=== PATIENT | male | born 1970 | race African-American/Black ===

== ENCOUNTER → 2024-01-08 | Outpatient (REF) | payer MEDICAID, SELFPAY ==
[2024-01-08 09:15] LABS: Hematocrit 45.1 % (40-54); Hemoglobin 13.7 g/dL (13.0-16.5); Mean Corp Hgb Conc 30.4 g/dL (32-36); Mean Corpuscular Hgb 29.7 pg (27.0-32.0); Mean Corpuscular Volume 97.8 fL (80-94); Mean Platelet Vol. 10.1 fl (6.2-12.0); Platelet Count 253 K/mm3 (150-450); RBC Distribution Width CV 13.5 % (11.6-14.6); RBC Distribution Width SD 48.8 fl (35.1-43.9); Red Blood Count 4.61 M/mm3 (4.6-6.2); White Blood Count 8.5 K/mm3 (4.4-11.0)
[2024-01-08 09:37] LABS: Vitamin D,25 Hydroxy 16.6 ng/mL
[2024-01-08 10:09] LABS: ALB/GLOB Ratio 0.9 RATIO (0.9-2.4); AST(SGOT) 38 U/L (15-37); Alanine Aminotransfer ALT/SGPT 151 U/L (16-61); Albumin, Serum 3.2 g/dL (3.2-5.0); Alkaline Phosphatase 113 U/L (45-117); Anion Gap 3 (5-15); BUN 13 mg/dL (7-18); BUN/Creat Ratio 21.8 RATIO (10-20); Chloride 104 mmol/L (98-107); Cholesterol 188 mg/dL (200); EST Glomerular Filtration Rate 151 mL/min (>60); Est Glom Filt Rate - Afr Amer 183 mL/min (>60); Globulin 3.4 g/dL (2.2-4.2); Glucose 89 mg/dL (74-106); High Density Lipoprotein 79 mg/dL; Potassium 4.3 mmol/L (3.5-5.1); Protein, Total 6.6 g/dL (6.4-8.2); Sodium Level 138 mmol/L (136-145); Thyroid Stim Hormone (TSH) 1.21 uIU/mL (0.358-3.74); Triglycerides 32 mg/dL; Uric Acid 3.8 mg/dL (3.5-7.2); Very Low Density Lipoprotein 6 mg/dL (5-40)
[2024-01-08 11:06] LABS: Hemoglobin A1c 5.8 % (3.8-5.6)
== END | disposition home or self-care (01) ==
LOC: OLS.ACW100 05:00
PROVIDERS: Visit Provider Family Medicine
DX: J44.1 Chronic obstructive pulmonary disease with (acute) exacerbation (principal); E11.9 Type 2 diabetes mellitus without complications; J96.21 Acute and chronic respiratory failure with hypoxia
CPT/HCPCS: 36415; 80053; 80061; 82306; 83036; 83735; 84443; 84550; 85027

== ENCOUNTER → 2024-01-09 | Outpatient (REF) | payer MEDICAID, SELFPAY ==
[2024-01-09 08:45] LABS: Hematocrit 44.3 % (40-54); Hemoglobin 13.4 g/dL (13.0-16.5); Mean Corp Hgb Conc 30.2 g/dL (32-36); Mean Corpuscular Hgb 29.1 pg (27.0-32.0); Mean Corpuscular Volume 96.3 fL (80-94); Mean Platelet Vol. 10.1 fl (6.2-12.0); Platelet Count 256 K/mm3 (150-450); RBC Distribution Width CV 13.5 % (11.6-14.6); RBC Distribution Width SD 48.1 fl (35.1-43.9); White Blood Count 8.1 K/mm3 (4.4-11.0)
[2024-01-09 10:34] LABS: AST(SGOT) 37 U/L (15-37); Alanine Aminotransfer ALT/SGPT 135 U/L (16-61); Albumin, Serum 3.2 g/dL (3.2-5.0); Alkaline Phosphatase 95 U/L (45-117); Anion Gap 2 (5-15); BUN 15 mg/dL (7-18); BUN/Creat Ratio 23.5 RATIO (10-20); Chloride 103 mmol/L (98-107); Cholesterol 186 mg/dL (200); Creatinine, Serum 0.64 mg/dL (0.70-1.30); EST Glomerular Filtration Rate 140 mL/min (>60); Est Glom Filt Rate - Afr Amer 169 mL/min (>60); Globulin 3.3 g/dL (2.2-4.2); Glucose 89 mg/dL (74-106); High Density Lipoprotein 76 mg/dL; Potassium 4.5 mmol/L (3.5-5.1); Protein, Total 6.5 g/dL (6.4-8.2); Sodium Level 139 mmol/L (136-145); Thyroid Stim Hormone (TSH) 1.07 uIU/mL (0.358-3.74); Triglycerides 41 mg/dL; Uric Acid 4.2 mg/dL (3.5-7.2); Very Low Density Lipoprotein 8 mg/dL (5-40)
== END | disposition home or self-care (01) ==
LOC: OLS.ACW100 06:55
PROVIDERS: Visit Provider Family Medicine
DX: E11.9 Type 2 diabetes mellitus without complications (principal); J44.1 Chronic obstructive pulmonary disease with (acute) exacerbation; J18.9 Pneumonia, unspecified organism
CPT/HCPCS: 36415; 80053; 80061; 82306; 83036; 83735; 84443; 84550; 85027

== ENCOUNTER → 2024-02-08 | Outpatient (REF) | payer MEDICAID, SELFPAY ==
[2024-02-08 08:49] LABS: Erythrocyte Sedimentation Rate 5 mm/hr (0-20)
[2024-02-08 08:51] LABS: Hematocrit 39.4 % (40-54); Hemoglobin 12.9 g/dL (13.0-16.5); Mean Corp Hgb Conc 32.7 g/dL (32-36); Mean Corpuscular Hgb 29.2 pg (27.0-32.0); Mean Corpuscular Volume 89.1 fL (80-94); Mean Platelet Vol. 9.8 fl (6.2-12.0); Platelet Count 227 K/mm3 (150-450); RBC Distribution Width CV 12.7 % (11.6-14.6); RBC Distribution Width SD 41.6 fl (35.1-43.9); Red Blood Count 4.42 M/mm3 (4.6-6.2); White Blood Count 5.8 K/mm3 (4.4-11.0)
[2024-02-08 09:02] LABS: ALB/GLOB Ratio 1.1 RATIO (0.9-2.4); AST(SGOT) 32 U/L (15-37); Alanine Aminotransfer ALT/SGPT 59 U/L (16-61); Albumin, Serum 3.2 g/dL (3.2-5.0); Alkaline Phosphatase 74 U/L (45-117); Anion Gap 4 (5-15); BUN 9 mg/dL (7-18); BUN/Creat Ratio 12.1 RATIO (10-20); CRP < 2.90 mg/L (0.0-3.0); Calcium,Total 8.8 mg/dL (8.5-10.1); Chloride 107 mmol/L (98-107); Cholesterol 171 mg/dL (200); Creatinine, Serum 0.74 mg/dL (0.70-1.30); EST Glomerular Filtration Rate 118 mL/min (>60); Est Glom Filt Rate - Afr Amer 142 mL/min (>60); Globulin 2.9 g/dL (2.2-4.2); Glucose 78 mg/dL (74-106); High Density Lipoprotein 60 mg/dL; Potassium 3.8 mmol/L (3.5-5.1); Protein, Total 6.1 g/dL (6.4-8.2); Sodium Level 138 mmol/L (136-145); Triglycerides 70 mg/dL; Very Low Density Lipoprotein 14 mg/dL (5-40)
[2024-02-08 09:38] LABS: Hemoglobin A1c 5.8 % (3.8-5.6)
== END | disposition home or self-care (01) ==
LOC: OLS.ACW300 05:00
PROVIDERS: Visit Provider Family Medicine
DX: J44.1 Chronic obstructive pulmonary disease with (acute) exacerbation (principal); R26.81 Unsteadiness on feet; R53.81 Other malaise
CPT/HCPCS: 36415; 80053; 80061; 83036; 85027; 85652; 86140

== ENCOUNTER → 2024-04-11 | Outpatient (REF) | payer MEDICAID, SELFPAY ==
[2024-04-11 09:19] LABS: AST(SGOT) 17 U/L (15-37); Alanine Aminotransfer ALT/SGPT 18 U/L (16-61); Albumin, Serum 3.5 g/dL (3.2-5.0); Alkaline Phosphatase 77 U/L (45-117); Anion Gap 4 (5-15); BUN 13 mg/dL (7-18); BUN/Creat Ratio 17.2 RATIO (10-20); Bilirubin, Direct 0.09 mg/dL (0.00-0.30); Calcium,Total 8.8 mg/dL (8.5-10.1); Chloride 103 mmol/L (98-107); Cholesterol 153 mg/dL (200); Creatinine, Serum 0.75 mg/dL (0.70-1.30); EST Glomerular Filtration Rate 115 mL/min (>60); Est Glom Filt Rate - Afr Amer 139 mL/min (>60); Glucose 91 mg/dL (74-106); High Density Lipoprotein 57 mg/dL; PSA,Total - Annual Screen 0.77 ng/mL (0.00-4.00); Potassium 4.1 mmol/L (3.5-5.1); Protein, Total 6.5 g/dL (6.4-8.2); Sodium Level 137 mmol/L (136-145); Thyroid Stim Hormone (TSH) 1.48 uIU/mL (0.358-3.74); Triglycerides 49 mg/dL; Very Low Density Lipoprotein 10 mg/dL (5-40)
== END | disposition home or self-care (01) ==
LOC: OLS.ACW300 05:00
PROVIDERS: Visit Provider Family Medicine
DX: J44.1 Chronic obstructive pulmonary disease with (acute) exacerbation (principal); R26.81 Unsteadiness on feet; R53.83 Other fatigue
CPT/HCPCS: 36415; 80048; 80061; 80076; 84153; 84403; 84443; G0103

== ENCOUNTER → 2024-09-16 | Outpatient (REF) | payer MEDICAID, SELFPAY | END | disposition home or self-care (01) | LOC: OLS.ACW300 07:00 | PROVIDERS: Visit Provider Family Medicine | DX: J44.1 Chronic obstructive pulmonary disease with (acute) exacerbation (principal); R26.81 Unsteadiness on feet; R53.81 Other malaise | CPT/HCPCS: 87502; 87635 ==

== ENCOUNTER → 2024-10-03 | Outpatient (REF) | payer MEDICAID, SELFPAY ==
[2024-10-03 08:59] LABS: Hematocrit 40.1 % (40-54); Hemoglobin 13.1 g/dL (13.0-16.5); Mean Corp Hgb Conc 32.7 g/dL (32-36); Mean Corpuscular Hgb 29.8 pg (27.0-32.0); Mean Corpuscular Volume 91.1 fL (80-94); Mean Platelet Vol. 9.3 fl (6.2-12.0); Platelet Count 557 K/mm3 (150-450); RBC Distribution Width SD 40.2 fl (35.1-43.9); White Blood Count 7.4 K/mm3 (4.4-11.0)
[2024-10-03 09:13] LABS: Vitamin D,25 Hydroxy 60.1 ng/mL
[2024-10-03 09:22] LABS: ALB/GLOB Ratio 0.9 RATIO (0.9-2.4); AST(SGOT) 23 U/L (15-37); Alanine Aminotransfer ALT/SGPT 39 U/L (16-61); Albumin, Serum 3.4 g/dL (3.2-5.0); Alkaline Phosphatase 145 U/L (45-117); Anion Gap 3 (5-15); BUN 18 mg/dL (7-18); BUN/Creat Ratio 25.1 RATIO (10-20); Chloride 104 mmol/L (98-107); Cholesterol 158 mg/dL (200); Creatinine, Serum 0.72 mg/dL (0.70-1.30); EST Glomerular Filtration Rate 122 mL/min (>60); Est Glom Filt Rate - Afr Amer 148 mL/min (>60); Globulin 3.9 g/dL (2.2-4.2); Glucose 89 mg/dL (74-106); High Density Lipoprotein 46 mg/dL; Potassium 4.3 mmol/L (3.5-5.1); Protein, Total 7.3 g/dL (6.4-8.2); Sodium Level 138 mmol/L (136-145); Triglycerides 53 mg/dL; Very Low Density Lipoprotein 11 mg/dL (5-40)
[2024-10-03 10:39] LABS: Hemoglobin A1c 5.6 % (3.8-5.6)
== END | disposition home or self-care (01) ==
LOC: OLS.ACW300 05:00
PROVIDERS: Visit Provider Family Medicine
DX: J44.1 Chronic obstructive pulmonary disease with (acute) exacerbation (principal); J43.9 Emphysema, unspecified; R26.81 Unsteadiness on feet; R53.83 Other fatigue; R53.81 Other malaise
CPT/HCPCS: 36415; 80053; 80061; 82306; 83036; 83735; 84443; 85027

== ENCOUNTER → 2025-01-31 | Outpatient (REF) | payer MEDICAID, SELFPAY ==
[2025-01-31 07:29] LABS: Hematocrit 39.8 % (40-54); Hemoglobin 13.1 g/dL (13.0-16.5); Mean Corp Hgb Conc 32.9 g/dL (32-36); Mean Corpuscular Hgb 30.4 pg (27.0-32.0); Mean Corpuscular Volume 92.3 fL (80-94); Mean Platelet Vol. 9.6 fl (6.2-12.0); Platelet Count 232 K/mm3 (150-450); RBC Distribution Width CV 12.7 % (11.6-14.6); RBC Distribution Width SD 43.6 fl (35.1-43.9); Red Blood Count 4.31 M/mm3 (4.6-6.2); White Blood Count 5.7 K/mm3 (4.4-11.0)
[2025-01-31 08:02] LABS: ALB/GLOB Ratio 1.6 RATIO (0.9-2.4); AST(SGOT) 25 U/L (<=37); Alanine Aminotransfer ALT/SGPT 34 U/L (<=46); Alkaline Phosphatase 100 U/L (40-129); Anion Gap 8 (5-15); BUN 17 mg/dL (4-19); BUN/Creat Ratio 22.1 RATIO (10-20); Calcium,Total 8.9 mg/dL (7.6-11.0); Chloride 103 mmol/L (98-108); Creatinine, Serum 0.78 mg/dL (0.70-1.20); EST Glomerular Filtration Rate 107 (>60); Globulin 2.4 g/dL (2.2-4.2); Glucose 86 mg/dL (70-99); Potassium 3.9 mmol/L (3.3-5.1); Protein, Total 6.4 g/dL (5.9-8.4); Sodium Level 139 mmol/L (133-145); Total Bilirubin 0.22 mg/dL (0.00-1.30)
== END | disposition home or self-care (01) ==
LOC: OLS.ACW200 05:00
PROVIDERS: Visit Provider Family Medicine
DX: J44.9 Chronic obstructive pulmonary disease, unspecified (principal); R53.83 Other fatigue
CPT/HCPCS: 36415; 80053; 85027

== ENCOUNTER → 2025-06-02 05:00 | Outpatient (REF) | payer MEDICAID, SELFPAY ==
[2025-06-02 08:51] LABS: Hematocrit 38.8 % (40-54); Hemoglobin 13.0 g/dL (13.0-16.5); Mean Corp Hgb Conc 33.5 g/dL (32-36); Mean Corpuscular Volume 90.0 fL (80-94); Mean Platelet Vol. 10.4 fl (6.2-12.0); Platelet Count 270 K/mm3 (150-450); RBC Distribution Width CV 11.6 % (11.6-14.6); RBC Distribution Width SD 38.0 fl (35.1-43.9); Red Blood Count 4.31 M/mm3 (4.6-6.2); White Blood Count 6.2 K/mm3 (4.4-11.0)
[2025-06-02 09:25] LABS: AST(SGOT) 29 U/L (<=37); Alanine Aminotransfer ALT/SGPT 14 U/L (<=46); Albumin, Serum 3.6 g/dL (3.5-5.0); Alkaline Phosphatase 109 U/L (40-129); Anion Gap 10 (5-15); BUN 13 mg/dL (4-19); BUN/Creat Ratio 17.1 RATIO (10-20); Calcium,Total 9.1 mg/dL (7.6-11.0); Carbon Dioxide 23.5 mmol/L (21.0-32.0); Chloride 103 mmol/L (98-108); Globulin 2.9 g/dL (2.2-4.2); Glucose 96 mg/dL (70-99); Potassium 4.1 mmol/L (3.3-5.1)
== END ==
LOC: OLS.ACW200 05:00
PROVIDERS: Visit Provider Family Medicine
DX: J44.1 Chronic obstructive pulmonary disease with (acute) exacerbation (principal); J43.9 Emphysema, unspecified; Z74.1 Need for assistance with personal care; R26.81 Unsteadiness on feet; R53.83 Other fatigue; R53.81 Other malaise
CPT/HCPCS: 36415; 80053; 85027

== ENCOUNTER → 2025-07-02 05:00 | Outpatient (REF) | payer MEDICAID, SELFPAY ==
--- OUTSIDE RECORDS SUMMARY | 2025-07-02 03:50 | XMS RPT_ITS | CCD ---
Author Organization [facility] Care Team Providers Care Industrial Photographer Name Role Phone Unavailable Primary Care Provider Unavailmitch Batista MD, Kelsi Primary Care Provider No, PCP Primary Care Unavailable PROVIDER, UNKNOWN Referring Unavailable John Eddy Attending Unavailable KELSI BATISTA Primary Care Unavailable Lisa Cantu Attending Unavailable PROVIDER, UNKNOWN Referring Unavailable KELSI BATISTA Primary Care Unavailable Lisa Cantu Attending Unavailable PROVIDER, UNKNOWN Referring Unavailable KELSI BATISTA Primary Care Unavailable Lisa Cantu Attending Unavailable PROVIDER, UNKNOWN Referring Unavailable Kelsi Batista MD Primary Care Provider Carlyle Garcia MD Primary Care Provider Karolina Chappell MD Unavailable [phone] Karolina Chappell MD Unavailable AGUILAR LOPEZ Attending Unavailable CARLYLE GARCIA Primary Care UnavailNAYE Molina Admitting Unavailable DAVION SUGGS Attending Unavailable JILL SIHN Admitting Unavailable CARLYLE GARCIA Primary Care UnavailPaula Headley MD Primary Care Provider EMELY AMIN Attending Unavailable PAULA RAPHAEL Referring Unavailable KELSI BATISTA Primary Care Unavailable PAULA RAPHAEL Attending Unavailable PAULA RAPHAEL Referring Unavailable PAULA RAPHAEL Primary Care Unavailable EMELY AMIN Attending Unavailable EMELY AMIN Referring Unavailable PAULA RAPHAEL Primary Care Unavailable EMELY AMIN Attending Unavailable EMELY AMIN Referring Unavailable PAULA RAPHAEL Primary Care Unavailable Paula Watson Attending Provider UnavailPaula Hogan Attending Unavailable Paula Watson Attending Unavailable Paula Watson Attending Unavailable Paula Watson Attending Unavailable Medications Current Medications Medication Drug Class(es) Dates Sig (Normalized) Sig (Original) [id number] 200 actuat albuterol 0.09 mg/actuat metered dose inhaler (19 sources) beta2-Adrenergic Agonist Start: 08-14-2024 take 4 puff(s) by inhalation once 4 puff, Inhalation, Once, On Mon08/14/24 at 0745, For 1 dose Start: 11-23-2023 take 2 puff(s) by in halation every four hours as needed for wheezing albuterol HFA (PROVENTIL HFA, VENTOLIN HFA) 90 mcg/actuation inhaler Inhale 2 Puffs as instructed every 4 hours as needed for wheezing/shortness of breath. 6.7 g 0 11/23/2023 Active Start: 09-06-2023 albuterol 108 (90 Base) MCG/ACT inhaler 2 puff Start: 09-06-2023 End: 10-06-2023 take 2 puff(s) by inhalation every four hours as needed for wheezing albuterol 108 (90 Base) MCG/ACT inhaler Inhale 2 puffs every 4 hours as needed for wheezing. 18 g 09/06/2023 Active Start: 07-19-2022 take 2 puff(s) by in halation four times daily as needed for wheezing albuterol sulfate HFA (VENTOLIN HFA) 108 (90 Base) MCG/ACT inhaler Indications: Chronic obstructive pulmonary disease, unspecified COPD type (HCC) Inhale 2 puffs into the lungs 4 times daily as needed for Wheezing 18 g 0 07/19/2022 Active Start: 04-20-2022 End: 04-21-2022 albuterol sulfate HFA (PROVENTIL;VENTOLIN;PROAIR) 108 (90 Base) MCG/ACT inhaler Start: 04-20-2022 albuterol sulf ate HFA (PROVENTIL;VENTOLIN;PROAIR) 108 (90 Base) MCG/ACT inhaler 2 puff Start: 04-20-2022 take 2 puff(s) by in halation four times daily as needed for wheezing albuterol sulfate HFA (VENTOLIN HFA) 108 (90 Base) MCG/ACT inhaler Inhale 2 puffs into the lungs 4 times daily as needed for Wheezing 18 g 0 04/20/2022 Active Comment on above: Inhale 2 Puffs as in structed every 4 hours as needed for wheezing/shortness of breath. albuterol 0.833 mg/ml / ipratropium bromide 0.167 mg/ml inhalation solution (9 sources) Anticholinergic, beta2-Adrenergic Agonist Start: 01-01-2024 ipratropium-albutero l (Duo-Neb) 0.5-2.5 mg/3 mL nebulizer solution Inhale 3 mL in the morning and 3 mL at noon and 3 mL in the evening and 3 mL before bedtime. 01/01/2024 Active Start: 01-01-2024 End: 03-01-2024 take 3 mL by inhalation four times daily ipratropium-albuterol (DUONEB) 0.5 mg-3 mg(2.5 mg base)/3 mL nebu Inhale 3 mL as instructed four times daily. 360 mL 1 01/01/2024 03/01/2024 Active Comment on above: Inhale 3 mL as instr ucted four times daily. 60 actuat budesonide 0.16 mg/actuat / formoterol fumarate 0.0045 mg/actuat metered dose inhaler (3 sources) Corticosteroid, beta2-Adrenergic Agonist Start: take 2 puff(s) by inhalation twice daily budesonide-formoterol (SYMBICORT) 160-4.5 MCG/ACT AERO Inhale 2 puffs into the lungs 2 times daily 10.2 g 2 11/27/2015 Active cholecalciferol 0.05 mg oral tablet (7 sources) Vitamin D Start: take 1 tablet by mouth once daily cholecalciferol (Vitamin D-3) 50 MCG (2000 UT) tablet Take 2,000 Units by mouth daily. 04/03/2024 Active diclofenac sodium 1 mg/ml ophthalmic solution (7 sources) Nonsteroidal Anti-inflammatory Drug Start: diclofenac (Voltaren) 0.1 % ophthalmic solution Administer 1 drop into the left eye. 04/05/2024 Active 60 actuat fluticasone propionate 0.1 mg/actuat / salmeterol 0.05 mg/actuat dry powder inhaler (11 sources) Corticosteroid, beta2-Adrenergic Agonist Start: take 1 puff(s) by inhalation in the morning Fluticasone-Salmetero l 100-50 MCG/ACT aerosol powder Inhale 1 puff in the morning and 1 puff in the evening. 11/23/2023 Active Start: 11-23-2023 take 1 puff(s) by in halation twice daily fluticasone-salmeterol (ADVAIR DISKUS) 100-50 mcg/dose inhaler Inhale 1 Puff as instructed two times a day. 60 Each 0 11/23/2023 Active Start: 11-23-2023 take 1 puff(s) by in halation twice daily fluticasone-salmeterol (ADVAIR DISKUS) 100-50 mcg/dose inhaler Inhale 1 Puff as instructed two times a day. 60 Each 0 11/23/2023 Suspended Comment on above: Inhale 1 Puff as ins tructed two times a day. 30 actuat fluticasone furoate 0.1 mg/actuat / umeclidinium 0.0625 mg/actuat / vilanterol 0.025 mg/actuat dry powder inhaler (1 source) Anticholinergic, Corticosteroid, beta2-Adrenergic Agonist Start: take 1 puff(s) by inhalation once daily fluticasone-umeclidi n-vilant (TRELEGY ELLIPTA) 100-62.5-25 MCG/INH AEPB Indications: Chronic obstructive pulmonary disease, unspecified COPD type (HCC) Inhale 1 puff into the lungs daily 1 each 0 07/19/2022 Active Fluticasone-Umeclidi n-Vilant (TRELEGY ELLIPTA IN) (1 source) Fluticasone-Umec lidi n-Vilant (TRELEGY ELLIPTA IN) Inhale into the lungs 0 Active Fluticasone-Umeclidi n-Vilant (Trelegy Ellipta) 200-62.5-25 MCG/ACT aerosol powder (7 sources) Start: take 1 puff(s) by inhalation once daily Fluticasone-Umeclidi n-Vilant (Trelegy Ellipta) 200-62.5-25 MCG/ACT aerosol powder Inhale 1 puff daily. 1 each 11 04/29/2024 Active iv contrast (will be provided with radiology test) (1 source) Start: End: iv contrast (will be provided with radiology test) CT Chest W -Inject, intravenously, once for 1 dose.No IV access, insert saline lock prior to the beginning of sedation, infusion, injection of imaging exam. Discontinue saline lock post exam. If Pt. has a central line or IVAD, may access for administration according to line specific nursing protocol. Once exam is complete flush line and de-access according to line specific nursing protocol in the CT contrast administration guidelines link. 1 Each 0 01/01/2024 01/02/2024 Active Comment on above: CT Chest W -Inject, intravenously, once for 1 dose.No IV access, insert saline lock prior to the beginning of sedation, infusion, injection of imaging exam. Discontinue saline lock post exam. If Pt. has a central line or IVAD, may access for administration according to line specific nursing protocol. Once exam is complete flush line and de-access according to line specific nursing protocol in the CT contrast administration guidelines link. PARoxetine hydrochloride 10 mg oral tablet (7 sources) Serotonin Reuptake Inhibitor Start: PARoxetine (Paxil) 10 MG tablet 10 mg. 03/01/2024 Active predniSONE 50 mg oral tablet (1 source) Start: End: take 1 tablet by mouth once daily predniSONE (DELTASONE) 50 MG tablet Take 1 tablet by mouth daily for 5 days 5 tablet 0 04/20/2022 04/25/2022 Active traZODone hydrochloride 50 mg oral tablet (7 sources) Serotonin Reuptake Inhibitor Start: traZODone (Desyrel) 50 MG tablet 50 mg. 2024 Active 7 actuat umeclidinium 0.0625 mg/actuat dry powder inhaler (7 sources) Anticholinergic Start: take 1 puff(s) by inhalation once daily Incruse Ellipta 62.5 MCG/ACT inhalation Inhale 1 puff daily. 04/03/2024 Active Completed/Discontinued Medications Medication Drug Class(es) Dates Sig (Normalized) Sig (Original) acetaminophen 500 mg oral tablet (1 source) Start: 09-18-2019 End: 09-18-2019 acetaminophen (TYLENOL) tablet 1,000 mg ceFAZolin 1000 mg injection (1 source) Cephalosporin Antibacterial Start: 09-18-2019 End: 09-18-2019 ceFAZolin (ANCEF) 1 g in dextrose 5 % 50 mL IVPB (premix) cephalexin 500 mg oral capsule (2 sources) Cephalosporin Antibacterial Start: 09-06-2023 End: 09-16-2023 cephalexin (Keflex) capsule 500 mg 1 ml dexamethasone phosphate 4 mg/ml injection (1 source) Corticosteroid Start: 04-20-2022 End: 04-20-2022 dexamethasone (DECADRON) injection 8 mg EPINEPHrine / Lidocaine (1 source) Antiarrhythmic, alpha-Adrenergic Agonist, beta-Adrenergic Agonist, Catecholamine, Amide Local Anesthetic Start: 09-18-2019 End: 09-18-2019 lidocaine-EPINEPHr ine 1 [id number] injection 20 mL Sodium Chloride (3 sources) Start: 04-20-2022 End: 04-20-2022 0.9 % sodium chloride bolus Start: 04-20-2022 End: 04-20-2022 0.9 % sodium chloride bolus Start: 09-18-2019 0.9 % sodium c hloride infusion sulfamethoxazole 800 mg / trimethoprim 160 mg oral tablet (2 sources) Dihydrofolate Reductase Inhibitor Antibacterial, Sulfonamide Antimicrobial Start: 09-06-2023 End: 09-06-2023 sulfamethoxazole-trimethopri m (Bactrim DS) 800-160 MG per tablet 1 tablet Start: 09-06-2023 End: 09-20-2023 take 1 tablet by mouth twice daily sulfamethoxazole-trimethoprim (Bactrim D S) 800-160 MG tablet Take 1 tablet by mouth 2 times daily for 14 days. 28 tablet 0 09/06/2023 09/20/2023 Active 10 actuat tiotropium 0.0025 mg/actuat inhalation spray (4 sources) Anticholinergic Start: 11-23-2023 take 2 puff(s) by inhalation once daily tiotropium bromide (SPIRIVA RESPIMAT) 2.5 mcg/actuation inhaler Inhale 2 Puffs as instructed once daily. 4 g 0 11/23/2023 Active Comment on above: Inhale 2 Puffs as instructed once daily. Problems Active Problems Problem Classification Problem Date Documented Da te Episodic/Chronic Acute bronchitis (4 sources) Acute bronchiolitis due to respiratory syncytial virus; Translations: [Acute bronchiolitis due to respiratory syncytial virus] Onset: 11-13-2023 11-13-2023 Episodic Anxiety disorders (2 sources) Anxiety disorder, unspecified; Translations: [Anxiety disorder, unspecified] Onset: 07-19-2022 Chronic Chronic obstructive pulmonary disease and bronchiectasis (20 sources) Acute exacerbation of chronic obstructive airways disease; Translations: [Chronic obstructive pulmonary disease with (acute) exacerbation] Onset: 04-20-2022 Chronic Congestive heart failure; nonhypertensive (4 sources) Chronic diastolic heart failure; Translations: [Chronic diastolic (congestive) heart failure] Onset: 12-27-2023 12-27-2023 Chronic Fluid and electrolyte disorders (4 sources) Respiratory acidosis; Translations: [Respiratory acidosis] Onset: 11-13-2023 11-13-2023 Episodic Immunizations and screening for infectious disease (7 sources) Requires vaccination; Translations: [Encounter for immunization] Onset: 07-19-2022 Resolved: 07-19-2022 07-19-2022 Episodic Lymphadenitis (5 sources) Mediastinal lymphadenopathy; Translations: [Localized enlarged lymph nodes] Onset: 12-28-2023 12-28-2023 Episodic Malaise and fatigue (4 sources) Other malaise; Translations: [Other fatigue] Onset: 02-17-2025 Episodic Nutritional deficiencies (4 sources) Deficiency of macronutrients; Translations: [Unspecified severe protein-calorie malnutrition] Onset: 11-22-2023 11-22-2023 Chronic Other aftercare (4 sources) Drug therapy finding; Translations: [Other senior care (current) drug therapy] Onset: 11-16-2023 11-16-2023 Episodic Other gastrointestinal disorders (2 sources) Left upper quadrant abdominal swelling, mass and lump; Translations: [Left upper quadrant abdominal swelling, mass and lump] Onset: 07-19-2022 Episodic Other screening for suspected conditions (not mental disorders or infectious disease) (4 sources) Patient encounter status; Translations: [Encounter for screening, unspecified] Onset: 07-19-2022 Episodic Pleurisy; pneumothorax; pulmonary collapse (4 sources) Pleural effusion; Translations: [Pleural effusion, not elsewhere classified] Onset: 12-28-2023 12-28-2023 Episodic Pneumonia (except that caused by tuberculosis or sexually transmitted disease) (5 sources) Community acquired pneumonia; Translations: [Pneumonia, unspecified organism] Onset: 11-16-2023 12-27-2023 Episodic Residual codes; unclassified (2 sources) Tobacco use; Translations: [Tobacco use] Onset: 07-19-2022 Episodic Respiratory failure; insufficiency; arrest (adult) (11 sources) Acute on chronic hypoxemic and hypercapnic respiratory failure; Translations: [Acute and chronic respiratory failure with hypoxia] Onset: 12-27-2023 12-27-2023 Chronic Respiratory failure; insufficiency; arrest (adult) (9 sources) Acute hypoxemic and hypercapnic respiratory failure; Translations: [Acute respiratory failure with hypoxia] Onset: 11-13-2023 11-13-2023 Episodic Screening and history of mental health and substance abuse codes (4 sources) Ex-smoker; Translations: [Personal history of nicotine dependence] Onset: 12-28-2023 12-28-2023 Episodic Septicemia (except in labor) (4 sources) Sepsis, unspecified organism; Translations: [Unspecified septicemia] Onset: 11-13-2023 11-13-2023 Episodic Substance-related disorders (20 sources) Nicotine dependence; Translations: [Nicotine dependence, unspecified, uncomplicated] Onset: 08-05-2020 07-14-2022 Chronic Viral infection (1 source) Other specified viral diseases; Translations: [RSV infection] Onset: 11-13-2023 Episodic Past or Other Problems Problem Classification Problem Date Documented Da te Episodic/Chronic Administrative/social admission (6 sources) Homeless; Translations: [Counseling procedure with explicit context] Onset: 11-16-2023 11-16-2023 Episodic Diabetes mellitus without complication (14 sources) Prediabetes; Translations: [Prediabetes] Onset: 07-14-2022 07-14-2022 Episodic Nonmalignant breast conditions (6 sources) Pain of breast; Translations: [Mastodynia] Onset: 06-27-2024 06-27-2024 Episodic Open wounds of head; neck; and trunk (6 sources) Open wound of neck; Translations: [Scalp laceration] Onset: 06-21-2020 06-21-2020 Episodic Other connective tissue disease (4 sources) Pain in both feet; Translations: [Pain in right foot] Onset: 01-14-2021 01-14-2021 Episodic Other gastrointestinal disorders (14 sources) Abdominal mass; Translations: [Left upper quadrant abdominal swelling, mass and lump] Onset: 07-19-2022 07-19-2022 Episodic Other injuries and conditions due to external causes (1 source) Injury of head; Translations: [Injury of head, initial encounter] Episodic Other injuries and conditions due to external causes (4 sources) Cold injury; Translations: [Effect of reduced temperature, unspecified, initial encounter] Onset: 01-10-2021 01-10-2021 Episodic Other lower respiratory disease (2 sources) Dyspnea; Translations: [Shortness of breath] Onset: 04-20-2022 Episodic Other lower respiratory disease (1 source) Shortness of breath; Translations: [Shortness of breath] Onset: 04-20-2022 Episodic Other nervous system disorders (1 source) Unsteadiness on feet; Translations: [Unsteadiness on feet] Onset: 02-17-2025 Episodic Residual codes; unclassified (18 sources) Tobacco user; Translations: [Tobacco use] Onset: 07-19-2022 07-19-2022 Episodic Residual codes; unclassified (15 sources) Immunization not carried out because of patient refusal; Translations: [Vaccination not carried out because of patient refusal] Onset: 07-19-2022 Episodic Superficial injury; contusion (15 sources) Insect bite of head; Translations: [Insect bite (nonvenomous) of unspecified part of head, initial encounter] Onset: 09-06-2023 09-06-2023 Episodic Results Test Name Value Interpretation Reference Range Facility Anion gap in Serum or Plasma Ordered By: Paula Raphael on 01-31-2025 Anion gap [Moles/Vol] 8 mmol/L 03-27 [facility] BUN/creatinine ratioOrdered By: Paula Raphael on 01-31-2025 Urea nitrogen/Creatinine [Mass ratio] 22.1 mg/mg High 09-01 [facility] Bilirubin, totalOrdered By: Paula Raphael on 01-31-2025 Bilirubin [Mass/Vol] 0.22 mg/dL 0.00-1.30 [facility] Carbon dioxide, total [Moles /volume] in Central venous bloodOrdered By: Paula Raphael on 01-31-2025 CO2 [Moles/Vol] 28.0 mmol/L 21.0-32.0 [facility] Chloride assayOrdered By: Abby Raphael on 01-31-2025 Chloride [Moles/Vol] 103 mmol/L 98-108 [facility] Erythrocyte distribution wid th (RBC) [Ratio]Ordered By: Paula Raphael on 01-31-2025 Erythrocyte distribution width (RBC) [Entitic vol] 43.6 fL 35.1-43.9 [facility] Erythrocyte distribution wid th ratioOrdered By: Paula Raphael on 01-31-2025 Erythrocyte distribution width (RBC) [Ratio] 12.7 % 11.6-14.6 [facility] GFR/1.73 sq M.predicted sacha g non-blacks MDRD (S/P/Bld) [Vol rate/Area]Ordered By: Paula Raphael on 01-31-2025 Estimated GFR (MDRD) Non-Af Amer 107 >60 [facility] Comment on above: mL/min/1.73m2 CKD-EP I Creatinine Equation (2020) Hematocrit Auto (Bld) [Volum e fraction]Ordered By: Paula Raphael on 01-31-2025 Hematocrit (Bld) [Volume fraction] 39.8 % Low 40-54 [facility] Hemoglobin measurementOrdere d By: Paula Raphael on 01-31-2025 Hemoglobin (Bld) [Mass/Vol] 13.1 g/dL 13.0-16.5 [facility] Laboratory - Chemistry and C hemistry - challengeOrdered By: Paula Raphael on 01-31-2025 AST [Catalytic activity/Vol] 25 U/L <38 [facility] MCV (mean corpuscular volume ) determinationOrdered By: Paula Raphael on 01-31-2025 MCV (RBC) [Entitic vol] 92.3 fL 80-94 [facility] Mean corpuscular hemoglobin (MCH) determinationOrdered By: Paula Raphael on 01-31-2025 MCH (RBC) [Entitic mass] 30.4 pg 27.0-32.0 [facility] Mean corpuscular hemoglobin concentration (MCHC) determinationOrdered By: Paula Raphael on 01-31-2025 MCHC (RBC) [Mass/Vol] 32.9 g/dL 32-36 [facility] Mean platelet volume determi nationOrdered By: Paula Raphael on 01-31-2025 Platelet mean volume (Bld) [Entitic vol] 9.6 fL 6.2-12.0 [facility] Platelet countOrdered By: Abby Raphael on 01-31-2025 Platelets (Bld) [#/Vol] 232 10*3/uL 150-450 [facility] Potassium (Unsp spec) [Mass/ Vol]Ordered By: Paula Raphael on 01-31-2025 Potassium [Moles/Vol] 3.9 mmol/L 3.3-5.1 [facility] RBC Auto (Bld) [#/Vol]Ordere d By: Paula Raphael on 01-31-2025 RBC (Bld) [#/Vol] 4.31 10*6/uL Low 4.6-6.2 [facility] Serum creatinine measurement (mass/volume)Ordered By: Paula Raphael on 01-31-2025 Creatinine [Mass/Vol] 0.78 mg/dL 0.70-1.20 [facility] Serum globulin measurementOr dered By: Paula Raphael on 01-31-2025 Globulin (S) [Mass/Vol] 2.4 g/dL 2.2-4.2 [facility] Serum glucose measurement (m ass/volume)Ordered By: Paula Raphael on 01-31-2025 Glucose [Mass/Vol] 86 mg/dL 70-99 [facility] Serum or plasma alanine villagomez otransferase (ALT) measurementOrdered By: Paula Raphael on 01-31-2025 ALT [Catalytic activity/Vol] 34 U/L <47 [facility] Serum or plasma albumin wayne urement (mass/volume)Ordered By: Paula Raphael on 01-31-2025 Albumin [Mass/Vol] 4.0 g/dL 3.5-5.0 [facility] Serum or plasma albumin/glob ulin mass ratioOrdered By: Paula Raphael on 01-31-2025 Albumin/Globulin [Mass ratio] 1.6 {ratio} 0.9-2.4 [facility] Serum or plasma alkaline leodan sphatase measurementOrdered By: Paula Raphael on 01-31-2025 ALP [Catalytic activity/Vol] 100 U/L 40-129 [facility] Serum or plasma calcium wayne urement (mass/volume)Ordered By: Paula Raphael on 01-31-2025 Calcium [Mass/Vol] 8.9 mg/dL 7.6-11.0 [facility] Serum or plasma urea nitroge n measurement (mass/volume)Ordered By: Paula Raphael on 01-31-2025 Urea nitrogen [Mass/Vol] 17 mg/dL 4-19 [facility] Sodium levelOrdered By: Víctor Raphael on 01-31-2025 Sodium [Moles/Vol] 139 mmol/L 133-145 [facility] Total proteinOrdered By: Otto Raphael on 01-31-2025 Protein [Mass/Vol] 6.4 g/dL 5.9-8.4 [facility] White blood cell (WBC) count Ordered By: Paula Raphael on 01-31-2025 WBC (Bld) [#/Vol] 5.7 10*3/uL 4.4-11.0 [facility] 36on 09-26-2024 36 Nurse Beto called i n from [employer] in [place] on behalf of Pt. Explained Pt was just put on Trelegy and she wanted to know If he was to continue taking Advair. Informed Beto that per Pt's last visit note Dr. Amin replaced Pt's Advair with Trelegy and he is to only be taking Trelegy. Beto verbalized understanding. [facility] BI US BREAST LIMITED BILATER Rhonda 06-27-2024 BI US BREAST LIMITED BILATERAL This is a summary report. The complete report is available in the patient's medical record. If you cannot access the medical record, please contact the sending organization for a detailed fax or copy. Patient Name: JAVIER DICKSON : 1970 Exam Date/Time: 06/27/2024 13:30 Procedure: BI US BREAST LIMITED BILATERAL Ordering Provider: RAPHAEL THOMAS Reason For Exam: PAIN PATIENT CANCER HISTORY: No Personal History of Cancer FAMILY CANCER HISTORY: Mother Breast Cancer age 65 COMPARISONS: There were no priors available for comparison. MAMMOGRAM: Image views: 2D CC and MLO views were acquired. 3D CC and MLO views were acquired. Markings on images: BB's = Nipples; skin lesions Open nenana = Palpable Line = Scar TISSUE DENSITY: BIRADS A - The breast tissue is almost entirely fat. Images were reviewed with CAD. FINDINGS: 54-year-old male presenting with bilateral, intermittent nipple hardening and aching. No suspicious masses, architectural distortions, or suspiciously clustered microcalcifications were identified in the right or left breast. This was the patient's baseline mammogram. Patient proceeded to ultrasound for further evaluation. BREAST ULTRASOUND: FINDINGS: Bilateral subareolar ultrasound demonstrated no mass or other abnormality. IMPRESSION: No mammographic or targeted sonographic evidence of malignancy in the right or left breast. ASSESSMENT: Category 1 Negative RECOMMENDATION: Clinical correlation Bilateral CANCER RISK ASSESSMENT: This risk assessment is based on patient provided information collected in a risk survey taken at the time of this examination. LIFETIME BREAST CANCER RISK: Tyrer-Cuzick 8: % - If greater than or equal to 20%, consider annual mammogram and annual screening Breast MRI or follow up in high risk clinic. Is the patient at elevated risk based on the HBOC criteria? No (Hereditary Breast and Ovarian Cancer) - If Yes, consider genetic counseling and testing with high risk follow up Is the patient at elevated risk based on the Russo Syndrome criteria? No - If Yes, consider genetic counseling and testing with high risk follow up. Report Dictated on Electronically Signed By: Rocio Fuller MD Electronically Signed Date/Time: 06/27/2024 1:34 PM EDT [facility] DBT Breast - bilateral diagn osticon 06-27-2024 Patient Name: JAVIER DICKSON : 1970 Exam Date/Time: 06/27/2024 12:16 Procedure: BI MAMMOGRAM DIAGNOSTIC TOMOSYNTHESIS BILATERAL Ordering Provider: RAPHAEL THOMAS Reason For Exam: PATIENT CANCER HISTORY: No Personal History of Cancer FAMILY CANCER HISTORY: Mother Breast Cancer age 65 COMPARISONS: There were no priors available for comparison. MAMMOGRAM: Image views: 2D CC and MLO views were acquired. 3D CC and MLO views were acquired. Markings on images: BB's = Nipples; skin lesions Open nenana = Palpable Line = Scar TISSUE DENSITY: BIRADS A - The breast tissue is almost entirely fat. Images were reviewed with CAD. FINDINGS: 54-year-old male presenting with bilateral, intermittent nipple hardening and aching. No suspicious masses, architectural distortions, or suspiciously clustered microcalcifications were identified in the right or left breast. This was the patient's baseline mammogram. Patient proceeded to ultrasound for further evaluation. BREAST ULTRASOUND: FINDINGS: Bilateral subareolar ultrasound demonstrated no mass or other abnormality. [facility] Rocio Fuller MD - 06/27/2024 Patient Name: [facility]AVIER DICKSON [facility] 1970 [id number] Exam Date/Time: 06/27/2024 12:16 Procedure: BI MAMMOGRAM DIAGNOSTIC TOMOSYNTHESIS BILATERAL Ordering Provider: RAPHAEL THOMAS Reason For Exam: PATIENT CANCER HISTORY: No Personal History of Cancer FAMILY CANCER HISTORY: Mother Breast Cancer age 65 COMPARISONS: There were no priors available for comparison. MAMMOGRAM: Image views: 2D CC and MLO views were acquired. 3D CC and MLO views were acquired. Markings on images: BB's = Nipples; skin lesions Open nenana = Palpable Line = Scar TISSUE DENSITY: BIRADS A - The breast tissue is almost entirely fat. Images were reviewed with CAD. FINDINGS: 54-year-old male presenting with bilateral, intermittent nipple hardening and aching. No suspicious masses, architectural distortions, or suspiciously clustered microcalcifications were identified in the right or left breast. This was the patient's baseline mammogram. Patient proceeded to ultrasound for further evaluation. BREAST ULTRASOUND: FINDINGS: Bilateral subareolar ultrasound demonstrated no mass or other abnormality. IMPRESSION: No mammographic or targeted sonographic evidence of malignancy in the right or left breast. ASSESSMENT: Category 1 Negative RECOMMENDATION: Clinical correlation Bilateral CANCER RISK ASSESSMENT: This risk assessment is based on patient provided information collected in a risk survey taken at the time of this examination. LIFETIME BREAST CANCER RISK: Tyrer-Cuzick 8: % - If greater than or equal to 20%, consider annual mammogram and annual screening Breast MRI or follow up in high risk clinic. Is the patient at elevated risk based on the HBOC criteria? No (Hereditary Breast and Ovarian Cancer) - If Yes, consider genetic counseling and testing with high risk follow up Is the patient at elevated risk based on the Russo Syndrome criteria? No - If Yes, consider genetic counseling and testing with high risk follow up. Report Dictated on Electronically Signed By: Rocio Fuller MD Electronically Signed Date/Time: 06/27/2024 1:34 PM EDT [facility] Study observation (narrative) [facility] No Panel Informationon 06-27 No mammographic or targeted sonographic evidence of malignancy in the right or left breast. ASSESSMENT: Category 1 Negative RECOMMENDATION: Clinical correlation Bilateral CANCER RISK ASSESSMENT: This risk assessment is based on patient provided information collected in a risk survey taken at the time of this examination. LIFETIME BREAST CANCER RISK: Tyrer-Cuzick 8: % - If greater than or equal to 20%, consider annual mammogram and annual screening Breast MRI or follow up in high risk clinic. Is the patient at elevated risk based on the HBOC criteria? No (Hereditary Breast and Ovarian Cancer) - If Yes, consider genetic counseling and testing with high risk follow up Is the patient at elevated risk based on the Russo Syndrome criteria? No - If Yes, consider genetic counseling and testing with high risk follow up. Report Dictated on Electronically Signed By: Rocio Fuller MD Electronically Signed Date/Time: 06/27/2024 1:34 PM EDT [facility] No Panel InformationOrdered By: Rocio Fuller on 06-27-2024 [facility] [employer] Work Phone: US Breast - bilateral limite don 06-27-2024 Patient Name: JAVIER DICKSON : 1970 Exam Date/Time: 06/27/2024 13:30 Procedure: BI US BREAST LIMITED BILATERAL Ordering Provider: RAPHAEL THOMAS Reason For Exam: PAIN PATIENT CANCER HISTORY: No Personal History of Cancer FAMILY CANCER HISTORY: Mother Breast Cancer age 65 COMPARISONS: There were no priors available for comparison. MAMMOGRAM: Image views: 2D CC and MLO views were acquired. 3D CC and MLO views were acquired. Markings on images: BB's = Nipples; skin lesions Open nenana = Palpable Line = Scar TISSUE DENSITY: BIRADS A - The breast tissue is almost entirely fat. Images were reviewed with CAD. FINDINGS: 54-year-old male presenting with bilateral, intermittent nipple hardening and aching. No suspicious masses, architectural distortions, or suspiciously clustered microcalcifications were identified in the right or left breast. This was the patient's baseline mammogram. Patient proceeded to ultrasound for further evaluation. BREAST ULTRASOUND: FINDINGS: Bilateral subareolar ultrasound demonstrated no mass or other abnormality. [facility] Rocio Fuller MD - 06/27/2024 Patient Name: JAVIER DICKSON : 1970 [id number] Exam Date/Time: 06/27/2024 13:30 Procedure: BI US BREAST LIMITED BILATERAL Ordering Provider: RAPHAEL THOMAS Reason For Exam: PAIN PATIENT CANCER HISTORY: No Personal History of Cancer FAMILY CANCER HISTORY: Mother Breast Cancer age 65 COMPARISONS: There were no priors available for comparison. MAMMOGRAM: Image views: 2D CC and MLO views were acquired. 3D CC and MLO views were acquired. Markings on images: BB's = Nipples; skin lesions Open nenana = Palpable Line = Scar TISSUE DENSITY: BIRADS A - The breast tissue is almost entirely fat. Images were reviewed with CAD. FINDINGS: 54-year-old male presenting with bilateral, intermittent nipple hardening and aching. No suspicious masses, architectural distortions, or suspiciously clustered microcalcifications were identified in the right or left breast. This was the patient's baseline mammogram. Patient proceeded to ultrasound for further evaluation. BREAST ULTRASOUND: FINDINGS: Bilateral subareolar ultrasound demonstrated no mass or other abnormality. IMPRESSION: No mammographic or targeted sonographic evidence of malignancy in the right or left breast. ASSESSMENT: Category 1 Negative RECOMMENDATION: Clinical correlation Bilateral CANCER RISK ASSESSMENT: This risk assessment is based on patient provided information collected in a risk survey taken at the time of this examination. LIFETIME BREAST CANCER RISK: Tonya 8: % - If greater than or equal to 20%, consider annual mammogram and annual screening Breast MRI or follow up in high risk clinic. Is the patient at elevated risk based on the HBOC criteria? No (Hereditary Breast and Ovarian Cancer) - If Yes, consider genetic counseling and testing with high risk follow up Is the patient at elevated risk based on the Russo Syndrome criteria? No - If Yes, consider genetic counseling and testing with high risk follow up. Report Dictated on Electronically Signed By: Rocio Fuller MD Electronically Signed Date/Time: 06/27/2024 1:34 PM EDT [facility] Radiology Study observation (narrative) [facility] Office Visiton 04-29-2024 Follow-up visit [id number] Javier Dickson 1970 M Date Provider Department Center 04/29/2024 [id number] AMIN [facility] PUL None Family History Problem Relation Age of Onset Breast cancer Mother Cataracts Mother COPD Mother Cataracts Father COPD Father Family Status - Relation Status Age at Mother Father Level of Service:83931 [place] OFFICE/OUTPATIENT NEW MODERATE MDM 45 MINUTES Reason for Visit and Comments: New Patient [542] COPD [313] - He says his breathing is okay. He says he has a few "lumps" on his chest that are sore and cause him to have trouble breathing. He says these showed up about 2 months ago. Normal [facility] Basophil percentageOrdered B y: Paula Raphael on 02-08-2024 Bilirubin [Mass/Vol] 0.40 mg/dL 0.20-1.00 [facility] Comment on above: For patients on eltr ombopag therapy, use of Dimension [place] TBIL is not recommended. Chloride [Moles/Vol] 107 mmol/L 98-107 [facility] Cholesterol [Mass/Vol] 171 mg/dL <200 [facility] Comment on above: <200 mg/dL Desirable 200-240 mg/dL Borderline >240 mg/dL High Risk Glucose [Mass/Vol] 78 mg/dL 74-106 [facility] Hemoglobin (Bld) [Mass/Vol] 12.9 g/dL 13.0-16.5 [facility] Potassium [Moles/Vol] 3.8 mmol/L 3.5-5.1 [facility] Protein [Mass/Vol] 6.1 g/dL 6.4-8.2 [facility] Sodium [Moles/Vol] 138 mmol/L 136-145 [facility] Triglyceride [Mass/Vol] 70 mg/dL <199 [facility] Comment on above: The drugs N-Acetylcy steine and Metamizole may falsely depress this assay.Serum Triglycerides Reference Interval Normal <150 mg/dL Borderline high 150 - 199 mg/dL High 200 - 499 mg/dL Very High > or = 500 mg/dL WBC (Bld) [#/Vol] 5.8 10*3/uL 4.4-11.0 [facility] Determination of erythrocyte mean corpuscular volume (MCV)Ordered By: Paula Raphael on 02-08-2024 MCV (RBC) [Entitic vol] 89.1 fL 80-94 [facility] Erythrocyte distribution wid th ratioOrdered By: Paula Raphael on 02-08-2024 Erythrocyte distribution width (RBC) [Ratio] 12.7 % 11.6-14.6 [facility] Erythrocyte distribution wid th standard deviationOrdered By: Paula Raphael on 02-08-2024 Erythrocyte distribution width (RBC) [Entitic vol] 41.6 fL 35.1-43.9 [facility] Erythrocyte sedimentation ra teOrdered By: Paula Raphael on 02-08-2024 ESR (Bld) [Velocity] 5 mm/h 0-20 [facility] Hematocrit Auto (Bld) [Volum e fraction]Ordered By: Paula Raphael on 02-08-2024 Hematocrit (Bld) [Volume fraction] 39.4 % 40-54 [facility] Laboratory - Chemistry and C hemistry - challengeOrdered By: Paula Raphael on 02-08-2024 Albumin/Globulin [Mass ratio] 1.1 {ratio} 0.9-2.4 [facility] ALP [Catalytic activity/Vol] 74 U/L 45-117 [facility] ALT [Catalytic activity/Vol] 59 U/L 16-61 [facility] Cholesterol in HDL [Mass/Vol] 60 mg/dL >40 [facility] Comment on above: The drugs N-Acetylcy steine and Metamizole may falsely depress this assay. Reference Range HDL <40 mg/dL Low HDL Cholesterol HDL >or= 60 mg/dL High HDL Cholesterol Cholesterol in LDL [Mass/Vol] 97 mg/dL 0-130 [facility] CO2 [Moles/Vol] 27.0 mmol/L 21.0-32.0 [facility] Globulin (S) [Mass/Vol] 2.9 g/dL 2.2-4.2 [facility] Urea nitrogen/Creatinine [Mass ratio] 12.1 mg/mg 10-20 [facility] Laboratory - Hematology and Cell countsOrdered By: Paula Raphael on 02-08-2024 MCH (RBC) [Entitic mass] 29.2 pg 27.0-32.0 [facility] MCHC (RBC) [Mass/Vol] 32.7 g/dL 32-36 [facility] Platelet mean volume (Bld) [Entitic vol] 9.8 fL 6.2-12.0 [facility] Platelets (Bld) [#/Vol] 227 10*3/uL 150-450 [facility] No Panel InformationOrdered By: Paula Raphael on 02-08-2024 C-Reactive Protein Extended Range < 2.90 mg/L 0.0-3.0 [facility] Comment on above: C-Reactive Protein ( CRP) provides useful information for thediagnosis, therapy and monitoring of inflammatory processesand associated diseases. For the evaluation of Relative Riskfor Cardiovascular Disease, a High Sensitivity CRP (HSCRP)should be ordered. Estimated GFR (MDRD) Amer 142 mL/min >60 [facility] Comment on above: GFR Calc Estimated GFR (MDRD) Non-Af Amer 118 mL/min >60 [facility] Comment on above: Non- GFR Calc VLDL Cholesterol 14 mg/dL 5-40 [facility] RBC Auto (Bld) [#/Vol]Ordere d By: Paula Raphael on 02-08-2024 RBC (Bld) [#/Vol] 4.42 10*6/uL 4.6-6.2 [facility] Serum or plasma calcium wayne urement (mass/volume)Ordered By: Paula Raphael on 02-08-2024 Calcium [Mass/Vol] 8.8 mg/dL 8.5-10.1 [facility] Serum or plasma creatinine m easurement (mass/volume)Ordered By: Paula Raphael on 02-08-2024 Creatinine [Mass/Vol] 0.74 mg/dL 0.70-1.30 [facility] Comment on above: The validity of the calculated GFR & GFRAA in patients over 70 years has not been determined. Clinical correlation is essential. Serum or plasma urea nitroge n measurement (mass/volume)Ordered By: Paula Raphael on 02-08-2024 Urea nitrogen [Mass/Vol] 9 mg/dL 7-18 [facility] Thin prep Papanicolaou smear with manual screeningOrdered By: Paula Raphael on 02-08-2024 Thin prep Papanicolaou smear with manual screening 3.2 g/dL 3.2-5.0 [facility] Thin prep Papanicolaou smear with manual screening 32 U/L 15-37 [facility] Thin prep Papanicolaou smear with manual screening 4 5-15 [facility] Whole blood hemoglobin A1c/t otal hemoglobin ratio (mass fraction)Ordered By: Paula Raphael on 02-08-2024 HbA1c (Bld) [Mass fraction] 5.8 % 3.8-5.6 [facility] Comment on above: Normal < 5.7 % Predi abetic 5.7 - 6.4 % Diabetic >or= 6.5 % Please note range changes. Felice 01-12-2024 [facility] Telephone (MELIA) JAVIER DICKSON ([id number]) 1970 Date Time Provider Department 01/12/24 EMILY FARRIS During your visit today, we recorded the following information about you: Emily Farris, Barrel Cap Setter 01/12/2024 8:38 AM Signed Sent letter to patient regarding Pulmonary Rehab requesting response by 01/26/2024. Emily Farris, Barrel Cap Setter 01/29/2024 12:51 PM Signed Attempts to reach patient via phone regarding Cardiopulmonary Rehab referral have been unsuccessful. No response from letter sent in mail. Will consider no response a patient deferral of services at this time. Emily Farris, CEP, Cardiopulmonary Rehab [id number] Allergies As of Date: 01/12/2024 (No Known Allergies) Date Reviewed: 01/01/2024 Reviewed by: Deanna Flores APRN.SECURITY MONITOR - Fully Assessed Reason for Visit: Pulm Rehab [4605] Cmt: Letter Sent Prescriptions as of 01/29/2024 - ipratropium-albuterol (DUONEB) 0.5 mg-3 mg(2.5 mg base)/3 mL nebu Inhale 3 mL as instructed four times daily. - albuterol HFA (PROVENTIL HFA, VENTOLIN HFA) 90 mcg/actuation inhaler Inhale 2 Puffs as instructed every 4 hours as needed for wheezing/shortness of breath. - fluticasone-salmeterol (ADVAIR DISKUS) 100-50 mcg/dose inhaler Inhale 1 Puff as instructed two times a day. - tiotropium bromide (SPIRIVA RESPIMAT) 2.5 mcg/actuation inhaler Inhale 2 Puffs as instructed once daily. Problem List As Of Date 01/12/2024 Noted Resolved Open neck wound [S11.90XA] 06/21/2020 Nicotine use disorder, F17.2 [F17.200] 08/05/2020 Cold injury [T69.9XXA] 01/10/2021 Pain in both feet [M79.671, M79.672] 01/14/2021 Drug abuse (HCC) [F19.10] 01/14/2021 COPD with exacerbation (HCC) [J44.1] 11/13/2023 RSV (acute bronchiolitis due to respiratory syn*11/13/2023 Sepsis with encephalopathy without septic shock*11/13/2023 Acute respiratory failure with hypoxia and hype*11/13/2023 Respiratory acidosis [E87.29] 11/13/2023 Community acquired pneumonia of right lower lob*11/16/2023 Tobacco abuse [Z72.0] 11/16/2023 Tobacco abuse counseling [Z71.6] 11/16/2023 On deep vein thrombosis (DVT) prophylaxis [Z79.*11/16/2023 Marijuana abuse [F12.10] 11/17/2023 Severe protein-calorie malnutrition (HCC) [E43] 11/22/2023 Acute hypercapnic respiratory failure (HCC) [J9*12/27/2023 Acute on chronic respiratory failure with hypox*12/27/2023 Polysubstance (excluding opioids) dependence (H*12/27/2023 Chronic diastolic CHF (congestive heart failure*12/27/2023 Former smoker [Z87.891] 12/28/2023 Pleural effusion [J90] 12/28/2023 MRSA nasal colonization [Z22.322] 12/28/2023 Mediastinal lymphadenopathy [R59.0] 12/28/2023 Letter Text Encounter Status:Closed by EMILY FARRIS on 01/12/24 [facility] Basophil percentageOrdered B y: Paula Raphael on 01-09-2024 Bilirubin [Mass/Vol] 0.30 mg/dL 0.20-1.00 [facility] Comment on above: For patients on eltr ombopag therapy, use of Dimension [place] TBIL is not recommended. Chloride [Moles/Vol] 103 mmol/L 98-107 [facility] Cholesterol [Mass/Vol] 186 mg/dL <200 [facility] Comment on above: <200 mg/dL Desirable 200-240 mg/dL Borderline >240 mg/dL High Risk Glucose [Mass/Vol] 89 mg/dL 74-106 [facility] Hemoglobin (Bld) [Mass/Vol] 13.4 g/dL 13.0-16.5 [facility] Potassium [Moles/Vol] 4.5 mmol/L 3.5-5.1 [facility] Protein [Mass/Vol] 6.5 g/dL 6.4-8.2 [facility] Sodium [Moles/Vol] 139 mmol/L 136-145 [facility] Triglyceride [Mass/Vol] 41 mg/dL <199 [facility] Comment on above: The drugs N-Acetylcy steine and Metamizole may falsely depress this assay.Serum Triglycerides Reference Interval Normal <150 mg/dL Borderline high 150 - 199 mg/dL High 200 - 499 mg/dL Very High > or = 500 mg/dL WBC (Bld) [#/Vol] 8.1 10*3/uL 4.4-11.0 [facility] Determination of erythrocyte mean corpuscular volume (MCV)Ordered By: Paula Raphael on 01-09-2024 MCV (RBC) [Entitic vol] 96.3 fL 80-94 [facility] Erythrocyte distribution wid th ratioOrdered By: Paula Raphael on 01-09-2024 Erythrocyte distribution width (RBC) [Ratio] 13.5 % 11.6-14.6 [facility] Erythrocyte distribution wid th standard deviationOrdered By: Paula Raphael on 01-09-2024 Erythrocyte distribution width (RBC) [Entitic vol] 48.1 fL 35.1-43.9 [facility] Hematocrit Auto (Bld) [Volum e fraction]Ordered By: Paula Raphael on 01-09-2024 Hematocrit (Bld) [Volume fraction] 44.3 % 40-54 [facility] Laboratory - Chemistry and C hemistry - challengeOrdered By: Paula Raphael on 01-09-2024 Albumin/Globulin [Mass ratio] 1.0 {ratio} 0.9-2.4 [facility] ALP [Catalytic activity/Vol] 95 U/L 45-117 [facility] ALT [Catalytic activity/Vol] 135 U/L 16-61 [facility] Cholesterol in HDL [Mass/Vol] 76 mg/dL >40 [facility] Comment on above: The drugs N-Acetylcy steine and Metamizole may falsely depress this assay. Reference Range HDL <40 mg/dL Low HDL Cholesterol HDL >or= 60 mg/dL High HDL Cholesterol Cholesterol in LDL [Mass/Vol] 102 mg/dL 0-130 [facility] CO2 [Moles/Vol] 34.0 mmol/L 21.0-32.0 [facility] Globulin (S) [Mass/Vol] 3.3 g/dL 2.2-4.2 [facility] Magnesium [Mass/Vol] 2.0 mg/dL 1.6-2.6 [facility] Urea nitrogen/Creatinine [Mass ratio] 23.5 mg/mg 10-20 [facility] Laboratory - Hematology and Cell countsOrdered By: Paula Raphael on 01-09-2024 MCH (RBC) [Entitic mass] 29.1 pg 27.0-32.0 [facility] MCHC (RBC) [Mass/Vol] 30.2 g/dL 32-36 [facility] Platelet mean volume (Bld) [Entitic vol] 10.1 fL 6.2-12.0 [facility] Platelets (Bld) [#/Vol] 256 10*3/uL 150-450 [facility] No Panel InformationOrdered By: Paula Raphael on 01-09-2024 Estimated GFR (MDRD) Amer 169 mL/min >60 [facility] Comment on above: GFR Calc Estimated GFR (MDRD) Non-Af Amer 140 mL/min >60 [facility] Comment on above: Non- GFR Calc Vitamin D 25-Hydroxy 20.0 ng/mL [facility] Comment on above: Vitamin D 25(OH) Sta tus Range Deficiency <20 ng/mL (50nmol/L) Insufficiency 20 - 30 ng/mL (50 - 75 nmol/L) Sufficiency 30 - 100 ng/mL (75 - 250 nmol/L) Toxicity >100 ng/mL (>250 nmol/L) VLDL Cholesterol 8 mg/dL 5-40 [facility] RBC Auto (Bld) [#/Vol]Ordere d By: Paula Raphael on 01-09-2024 RBC (Bld) [#/Vol] 4.60 10*6/uL 4.6-6.2 [facility] Serum or plasma calcium wayne urement (mass/volume)Ordered By: Paula Raphael on 01-09-2024 Calcium [Mass/Vol] 9.0 mg/dL 8.5-10.1 [facility] Serum or plasma creatinine m easurement (mass/volume)Ordered By: Paula Raphael on 01-09-2024 Creatinine [Mass/Vol] 0.64 mg/dL 0.70-1.30 [facility] Comment on above: The validity of the calculated GFR & GFRAA in patients over 70 years has not been determined. Clinical correlation is essential. Serum or plasma thyroid stim ulating hormone (TSH) measurement (units/volume)Ordered By: Paula Raphael on 01-09-2024 TSH Qn 1.07 uIU/mL 0.358-3.74 [facility] Serum or plasma urea nitroge n measurement (mass/volume)Ordered By: Paula Raphael on 01-09-2024 Urea nitrogen [Mass/Vol] 15 mg/dL 7-18 [facility] Serum or plasma uric acid me asurement (mass/volume)Ordered By: Paula Raphael on 01-09-2024 Urate [Mass/Vol] 4.2 mg/dL 3.5-7.2 [facility] Comment on above: The drugs N-Acetylcy steine and Metamizole may falsely depress this assay. Thin prep Papanicolaou smear with manual screeningOrdered By: Paula Raphael on 01-09-2024 Thin prep Papanicolaou smear with manual screening 3.2 g/dL 3.2-5.0 [facility] Thin prep Papanicolaou smear with manual screening 37 U/L 15-37 [facility] Thin prep Papanicolaou smear with manual screening 2 5-15 [facility] Whole blood hemoglobin A1c/t otal hemoglobin ratio (mass fraction)Ordered By: Paula Raphael on 01-09-2024 HbA1c (Bld) [Mass fraction] 6.0 % 3.8-5.6 [facility] Comment on above: Normal < 5.7 % Predi abetic 5.7 - 6.4 % Diabetic >or= 6.5 % Please note range changes. Basophil percentageOrdered B y: Paula Raphael on 01-08-2024 Bilirubin [Mass/Vol] 0.20 mg/dL 0.20-1.00 [facility] Comment on above: For patients on eltr ombopag therapy, use of Dimension [place] TBIL is not recommended. Chloride [Moles/Vol] 104 mmol/L 98-107 [facility] Cholesterol [Mass/Vol] 188 mg/dL <200 [facility] Comment on above: <200 mg/dL Desirable 200-240 mg/dL Borderline >240 mg/dL High Risk Glucose [Mass/Vol] 89 mg/dL 74-106 [facility] Hemoglobin (Bld) [Mass/Vol] 13.7 g/dL 13.0-16.5 [facility] Potassium [Moles/Vol] 4.3 mmol/L 3.5-5.1 [facility] Protein [Mass/Vol] 6.6 g/dL 6.4-8.2 [facility] Sodium [Moles/Vol] 138 mmol/L 136-145 [facility] Triglyceride [Mass/Vol] 32 mg/dL <199 [facility] Comment on above: The drugs N-Acetylcy steine and Metamizole may falsely depress this assay.Serum Triglycerides Reference Interval Normal <150 mg/dL Borderline high 150 - 199 mg/dL High 200 - 499 mg/dL Very High > or = 500 mg/dL WBC (Bld) [#/Vol] 8.5 10*3/uL 4.4-11.0 [facility]) JAVIER DICKSON ([id number]) 1970 M Date Time Provider Department 01/08/24 MIRLANDE BARTH [facility] [facility] During your visit today, we recorded the following information about you: Mirlande Thompson 01/08/2024 9:49 AM Signed Patient was discharged from [facility] 01-05-24 with an order to schedule with the [facility] Failure [facility]. However, the patient was then immediately admitted to a half-way facility. A letter was mailed to the patient asking them to contact the Clinic upon discharge from the facility. Allergies As of Date: 01/08/2024 (No Known Allergies) Date Reviewed: 01/01/2024 Reviewed by: Deanna Flores APRN.SECURITY MONITOR - Fully Assessed Reason for Visit: Orders [681] Cmt: AG HFC order contact/SNF ltr Prescriptions as of 01/08/2024 - ipratropium-albuterol (DUONEB) 0.5 mg-3 mg(2.5 mg base)/3 mL nebu Inhale 3 mL as instructed four times daily. - albuterol HFA (PROVENTIL HFA, VENTOLIN HFA) 90 mcg/actuation inhaler Inhale 2 Puffs as instructed every 4 hours as needed for wheezing/shortness of breath. - fluticasone-salmeterol (ADVAIR DISKUS) 100-50 mcg/dose inhaler Inhale 1 Puff as instructed two times a day. - tiotropium bromide (SPIRIVA RESPIMAT) 2.5 mcg/actuation inhaler Inhale 2 Puffs as instructed once daily. Problem List As Of Date 01/08/2024 Noted Resolved Open neck wound [S11.90XA] 06/21/2020 Nicotine use disorder, F17.2 [F17.200] 08/05/2020 Cold injury [T69.9XXA] 01/10/2021 Pain in both feet [M79.671, M79.672] 01/14/2021 Drug abuse (HCC) [F19.10] 01/14/2021 COPD with exacerbation (HCC) [J44.1] 11/13/2023 RSV (acute bronchiolitis due to respiratory syn*11/13/2023 Sepsis with encephalopathy without septic shock*11/13/2023 Acute respiratory failure with hypoxia and hype*11/13/2023 Respiratory acidosis [E87.29] 11/13/2023 Community acquired pneumonia of right lower lob*11/16/2023 Tobacco abuse [Z72.0] 11/16/2023 Tobacco abuse counseling [Z71.6] 11/16/2023 On deep vein thrombosis (DVT) prophylaxis [Z79.*11/16/2023 Marijuana abuse [F12.10] 11/17/2023 Severe protein-calorie malnutrition (HCC) [E43] 11/22/2023 Acute hypercapnic respiratory failure (HCC) [J9*12/27/2023 Acute on chronic respiratory failure with hypox*12/27/2023 Polysubstance (excluding opioids) dependence (H*12/27/2023 Chronic diastolic CHF (congestive heart failure*12/27/2023 Former smoker [Z87.891] 12/28/2023 Pleural effusion [J90] 12/28/2023 MRSA nasal colonization [Z22.322] 12/28/2023 Mediastinal lymphadenopathy [R59.0] 12/28/2023 Letter Text Encounter Status:Closed by MIRLANDE THOMPSON on 01/08/24 [facility] Determination of erythrocyte mean corpuscular volume (MCV)Ordered By: Paula Raphael on 01-08-2024 MCV (RBC) [Entitic vol] 97.8 fL 80-94 [facility] Erythrocyte distribution wid th ratioOrdered By: Paula Raphael on 01-08-2024 Erythrocyte distribution width (RBC) [Ratio] 13.5 % 11.6-14.6 [facility] Erythrocyte distribution wid th standard deviationOrdered By: Paula Raphael on 01-08-2024 Erythrocyte distribution width (RBC) [Entitic vol] 48.8 fL 35.1-43.9 [facility] Hematocrit Auto (Bld) [Volum e fraction]Ordered By: Paula Raphael on 01-08-2024 Hematocrit (Bld) [Volume fraction] 45.1 % 40-54 [facility] Laboratory - Chemistry and C hemistry - challengeOrdered By: Paula Raphael on 01-08-2024 Albumin/Globulin [Mass ratio] 0.9 {ratio} 0.9-2.4 [facility] ALP [Catalytic activity/Vol] 113 U/L 45-117 [facility] ALT [Catalytic activity/Vol] 151 U/L 16-61 [facility] Cholesterol in HDL [Mass/Vol] 79 mg/dL >40 [facility] Comment on above: The drugs N-Acetylcy steine and Metamizole may falsely depress this assay. Reference Range HDL <40 mg/dL Low HDL Cholesterol HDL >or= 60 mg/dL High HDL Cholesterol Cholesterol in LDL [Mass/Vol] 103 mg/dL 0-130 [facility] CO2 [Moles/Vol] 31.0 mmol/L 21.0-32.0 [facility] Globulin (S) [Mass/Vol] 3.4 g/dL 2.2-4.2 [facility] Magnesium [Mass/Vol] 2.0 mg/dL 1.6-2.6 [facility] Urea nitrogen/Creatinine [Mass ratio] 21.8 mg/mg 10-20 [facility] Laboratory - Hematology and Cell countsOrdered By: Paula Raphael on 01-08-2024 MCH (RBC) [Entitic mass] 29.7 pg 27.0-32.0 [facility] MCHC (RBC) [Mass/Vol] 30.4 g/dL 32-36 [facility] Platelet mean volume (Bld) [Entitic vol] 10.1 fL 6.2-12.0 [facility] Platelets (Bld) [#/Vol] 253 10*3/uL 150-450 [facility] No Panel InformationOrdered By: Paula Raphael on 01-08-2024 Estimated GFR (MDRD) Amer 183 mL/min >60 [facility] Comment on above: GFR Calc Estimated GFR (MDRD) Non-Af Amer 151 mL/min >60 [facility] Comment on above: Non- GFR Calc Vitamin D 25-Hydroxy 16.6 ng/mL [facility] Comment on above: Vitamin D 25(OH) Sta tus Range Deficiency <20 ng/mL (50nmol/L) Insufficiency 20 - 30 ng/mL (50 - 75 nmol/L) Sufficiency 30 - 100 ng/mL (75 - 250 nmol/L) Toxicity >100 ng/mL (>250 nmol/L) VLDL Cholesterol 6 mg/dL 5-40 [facility] RBC Auto (Bld) [#/Vol]Ordere d By: Paula Raphael on 01-08-2024 RBC (Bld) [#/Vol] 4.61 10*6/uL 4.6-6.2 [facility] Serum or plasma calcium wayne urement (mass/volume)Ordered By: Paula Raphael on 01-08-2024 Calcium [Mass/Vol] 9.0 mg/dL 8.5-10.1 [facility] Serum or plasma creatinine m easurement (mass/volume)Ordered By: Paula Raphael on 01-08-2024 Creatinine [Mass/Vol] 0.60 mg/dL 0.70-1.30 [facility] Comment on above: The validity of the calculated GFR & GFRAA in patients over 70 years has not been determined. Clinical correlation is essential. Serum or plasma thyroid stim ulating hormone (TSH) measurement (units/volume)Ordered By: Paula Raphael on 01-08-2024 TSH Qn 1.21 uIU/mL 0.358-3.74 [facility] Serum or plasma urea nitroge n measurement (mass/volume)Ordered By: Paula Raphael on 01-08-2024 Urea nitrogen [Mass/Vol] 13 mg/dL 7-18 [facility] Serum or plasma uric acid me asurement (mass/volume)Ordered By: Paula Raphael on 01-08-2024 Urate [Mass/Vol] 3.8 mg/dL 3.5-7.2 [facility] Comment on above: The drugs N-Acetylcy steine and Metamizole may falsely depress this assay. Thin prep Papanicolaou smear with manual screeningOrdered By: Paula Raphael on 01-08-2024 Thin prep Papanicolaou smear with manual screening 3.2 g/dL 3.2-5.0 [facility] Thin prep Papanicolaou smear with manual screening 38 U/L 15-37 [facility] Thin prep Papanicolaou smear with manual screening 3 5-15 [facility] Whole blood hemoglobin A1c/t otal hemoglobin ratio (mass fraction)Ordered By: Paula Raphael on 01-08-2024 HbA1c (Bld) [Mass fraction] 5.8 % 3.8-5.6 [facility] Comment on above: Normal < 5.7 % Predi abetic 5.7 - 6.4 % Diabetic >or= 6.5 % Please note range changes. 36on 01-05-2024 36 Called patient, patient's vm is not set up yet Normal [facility] CNDSon 01-05-2024 [facility] HNO ID: [id number] Author: AGUILAR LOPEZ MD Service: Hospital Medicine Author Type: Physician Type: Discharge Summary Filed: 01/05/2024 11:43 Note Text: DISCHARGE SUMMARY PATIENT NAME: Javier Dikcson ADMISSION DATE: 12/27/2023 DISCHARGE DATE: 01/05/2024 Attending Physician: Aguilar Lopez MD Reason for Hospitalization: shortness of breath Principal Problem: Acute on chronic respiratory failure with hypoxia and hypercapnia (HCC) (POA: Unknown) Active Problems: COPD with exacerbation (HCC) (POA: Yes) Community acquired pneumonia of right lower lobe of lung (POA: Yes) Polysubstance (excluding opioids) dependence (HCC) (POA: Unknown) Former smoker (POA: Unknown) Pleural effusion (POA: Unknown) MRSA nasal colonization (POA: Unknown) Mediastinal lymphadenopathy (POA: Unknown) Resolved Problems: * No resolved hospital problems. * Operations During Hospitalization: None Procedures During Hospitalization: No procedures performed Hospital Course: Patient is a 53-year-old male with past medical history of COPD not on oxygen at home, recent RSV infection, polysubstance abuse presented to the ER with worsening shortness of breath. Patient was noted to be hypoxic requiring BiPAP and was admitted to medical intensive care unit. Patient is treated with steroids, bronchodilators and antibiotics. Patient clinically improved and was able to be weaned off of BiPAP. Patient was not able to be weaned off of oxygen completely by discharge. He was still requiring up to 3 L of oxygen at rest as well as with ambulation. Patient is noted to have mediastinal adenopathy on the CT chest and recommended repeat CT in 8 weeks to monitor resolution. Patient is being discharged to half-way facility Labs and Procedures Pending at Discharge: No pending results. Consulting Teams During Hospitalization: None Patient Condition @ Discharge: Stable Discharge Disposition: [facility] Facility FOLLOW UP: with PCP in 1 week I Discharge Medications: Medication List START taking these medications ipratropium-albuterol 0.5 mg-3 mg(2.5 mg base)/3 mL Nebu Commonly known as: DUONEB Inhale 3 mL as instructed four times daily. CONTINUE taking these medications ADVAIR DISKUS 100-50 mcg/dose inhaler Generic drug: fluticasone-salmeterol Inhale 1 Puff as instructed two times a day. albuterol HFA 90 mcg/actuation inhaler Commonly known as: PROVENTIL HFA, VENTOLIN HFA Inhale 2 Puffs as instructed every 4 hours as needed for wheezing/shortness of breath. SPIRIVA RESPIMAT 2.5 mcg/actuation inhaler Generic drug: tiotropium bromide Inhale 2 Puffs as instructed once daily. ASK your doctor about these medications iv contrast (will be provided with radiology test) CT Chest W -Inject, intravenously, once for 1 dose.No IV access, insert saline lock prior to the beginning of sedation, infusion, injection of imaging exam. Discontinue saline lock post exam. If Pt. has a central line or IVAD, may access for administration according to line specific nursing protocol. Once exam is complete flush line and de-access according to line specific nursing protocol in the CT contrast administration guidelines link. Ask about: Should I take this medication? Where to Get Your Medications These medications were sent to e- [id number] [place] [address] - [address] - [phone] ACROSS FROM [facility] [id number] [address] [facility] [address] Hours: 24-hours ipratropium-albuterol 0.5 mg-3 mg(2.5 mg base)/3 mL Nebu I have performed the [id number] and relevant services for a total of 45 minutes. Highest Readmission Risk Score: 24 The 30 day readmissions risk score is derived from an internally validated risk model which evaluates patient level characteristics, utilization history, medication orders and lab results up until the day of discharge. Patients with a score of 40 or above are considered highest risk for readmission. Specific patient level drivers will be listed at the bottom of the summary. The 30 day readmissions risk score is derived from an internally validated risk model which evaluates patient level characteristics, utilization history, medication orders and lab results up until the day of discharge. Patients with a score of 40 or above are considered highest risk for readmission. Specific patient level drivers will be listed at the bottom of the summary. SIGNATURE: Aguilar Lopez MD PAGER: DATE: January 05, 2024 TIME: 11:[address] [facility] THERAPY NTon 01-05-2024 THERAPY NT HNO ID: [id number] Author: ANJEL QUINONES PT Service: Physical Therapy Author Type: Physical Therapist Type: Therapy (PT/OT/Speech/Resp) Filed: 01/05/2024 11:58 Note Text: Physical Therapy Treatment Summary SERVICE DATE: 01/05/2024 SERVICE TIME: 9392 to 1155 ROOM: [id number] PT 6 Clicks Score: 22 DISCHARGE RECOMMENDATIONS Home PT Recommended Discharge Disposition Comments: May benefit from home PT to continue to progress activity tolerance toward baseline. Recommended Discharge Equipment: (-) ASSESSMENT Response to Therapy Interventions: Good Participation in Activities, Improved Tolerance for Activity Pt demonstrates some improvements with balance and ambulation today, able to walk without AD at a SBA level. Pt walked bouts of 60 feet and required seated rest breaks between bouts to recover breathing. Sp02 on 3L was 90% after walking and quickly recover to mid-90's with sitting rest on the EOB. PRECAUTIONS Fall Risk, Lines/Tubes/Drains CURRENT HOSPITAL COURSE 53 y.o male admitted for acute hypoxic respiratory failure, respiratory acidosis, placed on BiPAP, COPD exacerbation, weaned to NC. Social issues complicating d/c. Relevant Past Medical History: COPD HOME LIVING Patient Lives With: Family (son and DIL) Assistance Available: Part-Time Entry To Home: Stairs, With Rail Number Of Stairs Into Home: 3 Number Of Stairs To Bed/Bath: 2 flights Stairs to Bed/Bath with: Unilateral Rail Tub/Shower Type: tub/shower Laundry: main floor Equipment Owned: (none) PRIOR FUNCTIONAL LEVEL Required Assistance Assistance Required With: Shopping, Transportation, Cleaning Patient reports ambulating without a device, requires assist with lower body dressing and noted difficulty with negotiating stairs at home due to shortness of breath. Son works during the day but [id number] at home, however patient reports being too stubborn to ask for assistance SUBJECTIVE Pt pleasant and agreeable to PT. THERAPY DIAGNOSIS Reduced mobility-other, Muscle Weakness (generalized), Unsteadiness on feet, General symptoms and signs-other TREATMENT INTERVENTIONS Gait Training (75894), Therapeutic Exercise (52399) Timed Code Treatment (minutes): 23 Skilled Treatment Time (minutes): 23 Therapeutic Exercise (84143) Treatment Minutes: 10 $ Therapeutic Exercise (14205) Billed Units: 1 unit Exercise Ankle Pumps (number of reps): 10 LAQ (number of reps): 10 Exercise: Seated marches x 10 reps each. Cues for increased ROM and slower speed for improved quality of exercises. Gait Training (69061) Treatment Minutes: 13 $ Gait Training (02562) Billed Units: 1 unit Gait training to normalize gait pattern and improve endurance; pt amb intervals of 60 feet without AD at a SBA level. Pt required seated rest breaks between bouts to recover breathing. Sp02 was 90% on 3L after walking. TRAINING AND EDUCATION PROVIDED Anatomy and Impact on Deficits, Benefits of In-Hospital Mobility, Expected Functional Level, Role of Physical Therapy, Gait Pattern, Reduction of Deviations, Precautions/Restrictio ns THERAPEUTIC SKILLS USED Cues for Sequencing/Proper Technique for Activity, Cuing Tactile, Cuing Verbal, Assessment of Tolerance Including Vitals Response to Activity FUNCTIONAL STATUS Bed Mobility Supine To Sit: Independent Sit to Supine: Independent Scooting: Independent Transfers Sit To Stand: Supervision, Additional Information slight unsteadiness, but no overt LOB Stand To Sit: Stand By Assistance cues for managing 02 line and avoid sitting on tubing Bed to Chair Gait Stand By Assistance, Additional Information Pt was SOB after walking 60' on 3L. Sp02 decreased to 90% after walking. Gait Device: None General Deviations/Observation s: Silvestre decreased, Flexed trunk posture, Lateral sway increased Gait Distance (feet): intervals of 60 feet Stairs BALANCE Static Sitting Balance: Good Dynamic Sitting Balance: Good Static Standing Balance: Good Dynamic Standing Balance: Fair ACTIVITY TOLERANCE Standing Activity: ambulation GOALS Patient will demonstrate progress with functional mobility to allow safe discharge to home with available support and/or physical assistance. Able to Perform HEP with: Verbal Cues Only Transfer Supine to/from Sit with: Independent (goal met 01/04) Transfer Sit to/from Stand with: Independent Ambulate with: Supervision Distance: 100' Device: Wheeled Walker Ambulate Up and Down Steps with: Stand By Assistance Number of Steps: 8 Device: Rail Transfer: stepping bed to/from chair with SBA using wheeled walker Rehab Potential: Good Progress Toward Goals: Progressing as expected PLAN PT Frequency: 4 Times Per Week (2-4) Treatment Interventions: Education, Energy Conservation Training, Strengthening, Functional Mobility Training Plan for Next Visit: Gait Training, Exercise Instruction/Handout, Sit to Stand Trans (more content not included)... Normal [facility] THERAPY NTon 01-04-2024 THERAPY NT HNO ID: [id number] Author: ALBERT PEGUERO, PT Service: Physical Therapy Author Type: Physical Therapist Type: Therapy (PT/OT/Speech/Resp) Filed: 01/04/2024 09:55 Note Text: Physical Therapy Treatment Summary SERVICE DATE: 01/04/2024 SERVICE TIME: 918 to 941 ROOM: [place] [address] PT 6 Clicks Score: 22 DISCHARGE RECOMMENDATIONS Home PT Recommended Discharge Disposition Comments: May benefit from home PT to continue to progress activity tolerance toward baseline. Recommended Discharge Equipment: (-) ASSESSMENT Response to Therapy Interventions: Good Participation in Activities, Improved Tolerance for Activity Pt making steady progress, today improved bed mobility to independent and sit to stand to stand by assist. Ambulated in hallway with contact guard assist, pt able to manage O2 tank on his own with occasional cues for steering/navigating; got better with practice. Continues to be limited by SOB with activity, took a couple standing rest breaks during ambulation and SpO2 dropped to 89% after ambulating on 4L; recovered in a couple minutes with seated rest. PRECAUTIONS Fall Risk, Lines/Tubes/Drains CURRENT HOSPITAL COURSE 53 y.o male admitted for acute hypoxic respiratory failure, respiratory acidosis, placed on BiPAP, COPD exacerbation, weaned to NC. Social issues complicating d/c. Relevant Past Medical History: COPD HOME LIVING Patient Lives With: Family (son and DIL) Assistance Available: Part-Time Entry To Home: Stairs, With Rail Number Of Stairs Into Home: 3 Number Of Stairs To Bed/Bath: 2 flights Stairs to Bed/Bath with: Unilateral Rail Tub/Shower Type: tub/shower Laundry: main floor Equipment Owned: (none) PRIOR FUNCTIONAL LEVEL Required Assistance Assistance Required With: Shopping, Transportation, Cleaning Patient reports ambulating without a device, requires assist with lower body dressing and noted difficulty with negotiating stairs at home due to shortness of breath. Son works during the day but [id number] at home, however patient reports being too stubborn to ask for assistance SUBJECTIVE Pt pleasant and agreeable to PT. THERAPY DIAGNOSIS Muscle Weakness (generalized), Unsteadiness on feet, General symptoms and signs-other TREATMENT INTERVENTIONS Therapeutic Activity (98558), Gait Training (72417) Therapeutic Activity (12451) Treatment Minutes: 10 $ Therapeutic Activity (14155) Billed Units: 1 unit Provided skilled monitoring of vitals signs with mobility and discussed results with pt. Edu in norms for SpO2 and expected drops with activity given his COPD. Discussed concern for adequate oxygenation if drops below 90%, however if this recovers with rest within a couple minutes this is a good thing. Gait Training (48768) Treatment Minutes: 13 $ Gait Training (27175) Billed Units: 1 unit Timed Code Treatment (minutes): 23 Skilled Treatment Time (minutes): 23 TRAINING AND EDUCATION PROVIDED Anatomy and Impact on Deficits, Benefits of In-Hospital Mobility, Expected Functional Level, Role of Physical Therapy, Gait Pattern, Reduction of Deviations, Precautions/Restrictio ns THERAPEUTIC SKILLS USED Cues for Sequencing/Proper Technique for Activity, Cuing Tactile, Cuing Verbal, Assessment of Tolerance Including Vitals Response to Activity FUNCTIONAL STATUS Bed Mobility Supine To Sit: Independent Sit to Supine: Independent Scooting: Stand By Assistance Transfers Sit To Stand: Stand By Assistance Stand To Sit: Stand By Assistance Bed to Chair Gait Contact Guard Assistance took a couple short standing rest breaks due to fatigue/SOB, rates activity 8/10 on Modified Mariajose RPE but demonstrates mild SOB; after ambulation on 4L SpO2 89%, took a couple minutes rest to recover; challenged pt to handle O2 tank while walking, cued for steering and obstacle negotiation at times; demonstrates a couple episodes increased sway but no gross loss of balance Gait Device: None General Deviations/Observation s: Silvestre decreased, Flexed trunk posture, Lateral sway increased Gait Distance (feet): intervals of 50-100 ft Stairs GOALS Patient will demonstrate progress with functional mobility to allow safe discharge to home with available support and/or physical assistance. Able to Perform HEP with: Verbal Cues Only Transfer Supine to/from Sit with: Independent (goal met 01/04) Transfer Sit to/from Stand with: Independent Ambulate with: Supervision Distance: 100' Device: Wheeled Walker Ambulate Up and Down Steps with: Stand By Assistance Number of Steps: 8 Device: Rail Transfer: stepping bed to/from chair with SBA using wheeled walker Rehab Potential: Good Progress Toward Goals: Progressing as expected PLAN PT Frequency: 4 Times Per Week (2-4) Treatment Interventions: Education, Energy Conservation Training, Strengthening, Functional Mobility Training Plan for Next Visit: Gait Training, Customer Relations Consultant (more content not included)... Normal [facility] ALLIED [facility]ALTHon 01-02-2024 [facility] HNO ID: [id number] Author: EMILY FARRIS, Barrel Cap Setter Service: Pulmonary Rehab Author Type: Barrel Cap Setter Type: Allied Health Filed: 01/02/2024 10:27 Note Text: PULMONARY REHABILITATION PATIENT EDUCATION PROGRESS NOTE Name: Javier Dickson Date of Service: 01/02/24 Time of Service: 1015 ASSESSMENT: Risk Factors/Significant Medical History Identified: Diagnosis: COPD Sedentary Lifestyle (does not exericse 3 times per week for 20 minutes) Smoking Status: Current 4L NC RECOMMENDATIONS: Patient interested in Phase II Outpatient Pulmonary Rehab: Yes. Facility Preferred: [facility] DIAGNOSIS: COPD TEACHING POINTS: Activity/Physical Exercise Recommendations Outpatient Pulmonary Rehab READINESS TO LEARN: Cognitive Ability: Alert and Oriented Motivation to Learn: Interested Family Support: Unable to assess - Family not present Instruction Provided To: Patient Patient Learns Best By: Individual Instruction, Written Instruction - Hand-outs, and Verbal Instruction Factors Affecting Learning: None Physical Limitations Affecting Learning: None LEARNING RESPONSE: Method Of Instruction: Individual instruction Written instruction - handouts Verbal instruction Patient/Family Response: Verbalizes understanding of: Pulmonary Rehab Follow-up Plan: No further educational needs identified at this time. Instructional Aids Used: Pulmonary Rehabilitation Brochure Discussed, encouraged, and provided handout on Cardiac rehab program. Discussed and gave handout on locations/phone numbers closest to patient home for enrollment of the program. Referral placed to Cardiac Rehab outpatient program for follow-up call to patient. Patient and/or family verbalizes understanding. Signature: Emily Farris Barrel Cap Setter Pager: [phone] Date: January 02, 2024 Time: 10:24 AM [facility] 36on 01-01-2024 36 Name of caller: Ayleen Contact phone number: [phone] Relationship to Patient: [facility] Home Care Provider: Luis E Practice: [facility] Chief Complaint/Reason for Call: Ayleen called to see if the doctor would follow for home care. I released the message to her about the patient will need an appointment. She said she will note that. Please advise Best time of day caller can be reached: any Patient advised that office/PCP has 24-48 business hours to return their call: No [facility] CNPN Telephone (HCSIND) JAVIER DICKSON ([id number]) 1970 M Date Time Provider Department 01/01/24 BETO CRENSHAW ANTWAN During your visit today, we recorded the following information about you: Beto Crenshaw 01/01/2024 2:00 PM Signed Jacob there! (Spoke with: Javier ) My name is Beto Crenshaw and I'm calling from [facility]. Your doctor wants to make sure you have the best care at home after leaving the hospital. Do you have a few minutes to chat about what to expect from home care? yes Before we start, have you received help from a home care company in the last 60 days? They might have assisted with things like bathing, medication, checking your blood pressure, or exercises. yes Our goal is to make your transition home smooth. A SN will visit you within 2 days of leaving the hospital to get you started with home care. Is that okay with you? yes They'll contact you the night before or the morning of the visit to tell you when they'll arrive. What address will we be seeing you at? [address] [place] [address] Do you have any upcoming appointments or things we need to schedule around? Not sure When they contact you, the number might be unfamiliar or blocked. If they leave a message, please reply so we can plan your visit. Homecare helps with your recovery. During the first visit, the SN will talk with you, set goals, and plan your care. This visit might take one and a half to three hours. They'll figure out which services you need and how often they will see you. The purpose of homecare is to teach you or a family member or friend to manage your condition and provide any ordered treatments. Do you have someone to assist you at home? yes They'll need to see your discharge instructions and medication bottles for any medications you are taking, both prescription and over the counter. Can you have those ready? yes Any questions so far? no We understand it's not easy having new people in your home while you're recovering. Our caregivers will treat you with dignity and respect, and we ask the same in return. The safety of our patients and caregivers is important to us. We ask that you put away and secure any animals or weapons in the home prior to our caregivers arriving. We also ask that you, or anyone else in the home, are not under the influence of any substances, refrain from raising your voice, using profanity, or being threatening or aggressive during visits. If you don't have questions, I have just one more. Did you get a flu shot this year? yes Where did you get it? Not sure Allergies As of Date: 01/01/2024 (No Known Allergies) Date Reviewed: 01/01/2024 Reviewed by: Deanna Flores APRN.SECURITY MONITOR - Fully Assessed Reason for Visit: Home Care [4073] Cmt: Confirmation Call Prescriptions as of 01/01/2024 - ipratropium-albuterol (DUONEB) 0.5 mg-3 mg(2.5 mg base)/3 mL nebu Inhale 3 mL as instructed four times daily. - albuterol HFA (PROVENTIL HFA, VENTOLIN HFA) 90 mcg/actuation inhaler Inhale 2 Puffs as instructed every 4 hours as needed for wheezing/shortness of breath. - fluticasone-salmeterol (ADVAIR DISKUS) 100-50 mcg/dose inhaler Inhale 1 Puff as instructed two times a day. - tiotropium bromide (SPIRIVA RESPIMAT) 2.5 mcg/actuation inhaler Inhale 2 Puffs as instructed once daily. Facility-Administered Medications as of 01/01/2024 - budesonide 0.5 mg/2 mL 0.5 mg (PULMICORT) - aluminum-magnesium hydroxide-simethicone 200-200-20 mg/5 mL 30 mL - polyethylene glycol 3350 17 g packet - ipratropium-albuterol 3 mL nebulizer solution (DUONEB) - mupirocin 2 % 0.5 g nasal ointment (BACTROBAN) - NaCl 0.9% iv flush bag - enoxaparin 40 mg injection (LOVENOX) - ipratropium-albuterol 3 mL nebulizer solution (DUONEB) Problem List As Of Date 01/01/2024 Noted Resolved Open neck wound [S11.90XA] 06/21/2020 Nicotine use disorder, F17.2 [F17.200] 08/05/2020 Cold injury [T69.9XXA] 01/10/2021 Pain in both feet [M79.671, M79.672] 01/14/2021 Drug abuse (HCC) [F19.10] 01/14/2021 COPD with exacerbation (HCC) [J44.1] 11/13/2023 RSV (acute bronchiolitis due to respiratory syn*11/13/2023 Sepsis with encephalopathy without septic shock*11/13/2023 Acute respiratory failure with hypoxia and hype*11/13/2023 Respiratory acidosis [E87.29] 11/13/2023 Community acquired pneumonia of right lower lob*11/16/2023 Tobacco abuse [Z72.0] 11/16/2023 Tobacco abuse counseling [Z71.6] 11/16/2023 On deep vein thrombosis (DVT) prophylaxis [Z79.*11/16/2023 Marijuana abuse [F12.10] 11/17/2023 Severe protein-calorie malnutrition (HCC) [E43] 11/22/2023 Acute hypercapnic respiratory failure (HCC) [J9*12/27/2023 Acute on chronic respiratory failure with hypox*12/27/2023 Polysubstance (excluding opioids) dependence (H*12/27/2023 Chronic diastolic CHF (congestive heart failure*12/27/2023 Former smoker [Z87 (more content not included)... Normal [facility] VANESSAN Telephone (AKPRAD) JAVIER DICKSON ([id number]) 1970 M Date Time Provider Department 01/01/24 DEANNA FLORES AKDILMA During your visit today, we recorded the following information about you: Deanna Flores APRN.CNP 01/01/2024 10:[address] Capellan, Please sign the orders for Javier Dickson (f/u CT chest in 6 weeks for resolution of ZACHERY) The patient will also need a follow up with our office afterwards. Thank you! Deanna Flores APRN.CNP January 01, 2024 10:46 AM Allergies As of Date: 01/01/2024 (No Known Allergies) Date Reviewed: 01/01/2024 Reviewed by: Deanna Flores APRN.SECURITY MONITOR - Fully Assessed Reason for Visit: Orders [681] Primary Visit Diagnosis:Localized enlarged lymph nodes [R59.0] Order(s):CT CHEST W IVCON [[id number]] Order #: [id number] FUTURE iv contrast (will be provided with radiology test)CT Chest W -Inject, intravenously, once for 1 dose.No IV access, insert saline lock prior to the beginning of sedation, infusion, injection of imaging exam. Discontinue saline lock post exam. If Pt. has a central line or IVAD, may access for administration according to line specific nursing protocol. Once exam is complete flush line and de-access according to line specific nursing protocol in the CT contrast administration guidelines link.Disp: 1 EachRfl: 0 Prescriptions as of 01/01/2024 - iv contrast (will be provided with radiology test) CT Chest W -Inject, intravenously, once for 1 dose.No IV access, insert saline lock prior to the beginning of sedation, infusion, injection of imaging exam. Discontinue saline lock post exam. If Pt. has a central line or IVAD, may access for administration according to line specific nursing protocol. Once exam is complete flush line and de-access according to line specific nursing protocol in the CT contrast administration guidelines link. - ipratropium-albuterol (DUONEB) 0.5 mg-3 mg(2.5 mg base)/3 mL nebu Inhale 3 mL as instructed four times daily. - albuterol HFA (PROVENTIL HFA, VENTOLIN HFA) 90 mcg/actuation inhaler Inhale 2 Puffs as instructed every 4 hours as needed for wheezing/shortness of breath. - fluticasone-salmeterol (ADVAIR DISKUS) 100-50 mcg/dose inhaler Inhale 1 Puff as instructed two times a day. - tiotropium bromide (SPIRIVA RESPIMAT) 2.5 mcg/actuation inhaler Inhale 2 Puffs as instructed once daily. Facility-Administered Medications as of 01/01/2024 - budesonide 0.5 mg/2 mL 0.5 mg (PULMICORT) - aluminum-magnesium hydroxide-simethicone 200-200-20 mg/5 mL 30 mL - polyethylene glycol 3350 17 g packet - ipratropium-albuterol 3 mL nebulizer solution (DUONEB) - mupirocin 2 % 0.5 g nasal ointment (BACTROBAN) - NaCl 0.9% iv flush bag - enoxaparin 40 mg injection (LOVENOX) - ipratropium-albuterol 3 mL nebulizer solution (DUONEB) Problem List As Of Date 01/01/2024 Noted Resolved Open neck wound [S11.90XA] 06/21/2020 Nicotine use disorder, F17.2 [F17.200] 08/05/2020 Cold injury [T69.9XXA] 01/10/2021 Pain in both feet [M79.671, M79.672] 01/14/2021 Drug abuse (HCC) [F19.10] 01/14/2021 COPD with exacerbation (HCC) [J44.1] 11/13/2023 RSV (acute bronchiolitis due to respiratory syn*11/13/2023 Sepsis with encephalopathy without septic shock*11/13/2023 Acute respiratory failure with hypoxia and hype*11/13/2023 Respiratory acidosis [E87.29] 11/13/2023 Community acquired pneumonia of right lower lob*11/16/2023 Tobacco abuse [Z72.0] 11/16/2023 Tobacco abuse counseling [Z71.6] 11/16/2023 On deep vein thrombosis (DVT) prophylaxis [Z79.*11/16/2023 Marijuana abuse [F12.10] 11/17/2023 Severe protein-calorie malnutrition (HCC) [E43] 11/22/2023 Acute hypercapnic respiratory failure (HCC) [J9*12/27/2023 Acute on chronic respiratory failure with hypox*12/27/2023 Polysubstance (excluding opioids) dependence (H*12/27/2023 Chronic diastolic CHF (congestive heart failure*12/27/2023 Former smoker [Z87.891] 12/28/2023 Pleural effusion [J90] 12/28/2023 MRSA nasal colonization [Z22.322] 12/28/2023 Mediastinal lymphadenopathy [R59.0] 12/28/2023 Prescriptions ordered this encounter Disp Refills Start End IV CONTRAST (RADIOLOGY PROCEDURE) 1 Ea* 0 01/01/2024 01/02/2024 Class: In Office Sig: CT Chest W -Inject, intravenously, once for 1 dose.No IV access, insert saline lock prior to the beginning of sedation, infusion, injection of imaging exam. Discontinue saline lock post exam. If Pt. has a central line or IVAD, may access for administration according to line specific nursing protocol. Once exam is complete flush line and de-access according to line specific nursing protocol in the CT contrast administration guidelines link. Encounter Status:Closed by TIMI CAPELLAN on 01/01/24 [facility] NUTRITIONon 01-01-2024 NUTRITION HNO ID: [id number] Author: DEYANIRA GARCÍA RD Service: Nutrition Therapy Author Type: Registered Dietitian Type: Nutrition Filed: 01/01/2024 10:32 Note Text: NUTRITION THERAPY PROGRESS NOTE SERVICE DATE: 01/01/2024 SERVICE TIME: 9:40 AM Nutrition Assessment: Recommended Malnutrition Diagnosis: Severe Protein-Calorie Malnutrition (12/27/23 1255 : Scotty Simon, ROSAMARIA) Estimated kilocalorie needs: 1860-2170kcals Calorie Calculation Method: 30-35 kcals/kg Estimated protein needs (grams): 74-93gms Grams protein determined by: 1.2 - 1.5 g/kg Care Plan: Continue current diet (Regular) Supplements: Boost [facility] (will decrease to daily) Medications: Stool softener (continue as ordered) Monitor and Evaluation: Meet greater than 75% of estimated needs, Monitor bowel function, Monitor fluid/electrolyte balance, Monitor labs, I/Os, vital signs, weight Discharge Recommendations: Diet Diet: Regular Interval History: patient on LOS day 5, CT chest revealed severe emphysema and a small right pleural effusion. Patient in NAD at time of RD visit, denied N/V or abdominal pain. +BM on 12/31. Anthropometrics: Height: 182.9 cm (6') Weight: 70.2 kg (154 lb 12.2 oz) Dosing Weight: 62 kg (136 lb 11 oz) Body mass index is 20.99 kg/m?. Intake History: Current Nutrition Intake: Greater than 75% estimated energy needs Current Intake Over time: Greater than or equal to 5 days (per patient and flowsheet records. Eating well at meals at least 50%, and also drinks Boost. GP) Diet Orders (From admission, onward) Start Ordered 12/27/23 1330 DIET SUPPLEMENTS START NOW Question Answer Comment Supplement 1 BOOST [facility] [place] Supplement 1 Frequency BREAKFAST Supplement 1 Frequency DINNER 12/27/23 1315 12/27/23 1030 DIET REGULAR START NOW 12/27/23 1026 GI Symptoms: None MNT Billing: $ Reassessment: 1-15 minutes SIGNATURE: Deyanira García RD PATIENT NAME: Javier Dickson DATE: January 01, 2024 TIME: 9:[address] [facility] THERAPY NTon 01-01-2024 THERAPY NT HNO ID: [id number] Author: HOMA DELGADILLO, ASSISTANT DIRECTOR OF ADMISSIONS Service: Respiratory Therapy Author Type: Registered Resp Therapist Type: Therapy (PT/OT/Speech/Resp) Filed: 01/01/2024 12:24 Note Text: 01/01/24 1221 COPD Consult Assessment O2 Therapy NC Liters 4 SpO2 94 % COPD [facility] Ordered Yes Short Acting Beta Agonists used in Hospital DuoNeb (Ipratropium-Albuterol ) Long Acting Bronchodilators used at Home Symbicort (Budesonide and Formoterol) Patient has participated in Pulmonary Rehab Never Follow Up Visit Instruction Importance of follow-up visit addressed (phone number and address given) Education Topic COPD Education Pt not interested in pulmonary rehab at this time . Normal [facility] Basic metabolic 2000 panelon 12-30-2023 Anion gap [Moles/Vol] 6 mmol/L Low 9-18 [facility] Comment on above: Order Comment: Meng blancas Type: BLOOD SPECIMEN Ordering Facility: [facility] Address: [address] [place] [address] Performed By: #### 2 4321-2 #### [facility] CLIA [id number] [address] [place] [address] [place] Calcium [Mass/Vol] 8.6 mg/dL Normal 8.5-10.2 [facility] Comment on above: Order Comment: Meng blancas Type: BLOOD SPECIMEN Ordering Facility: [facility] Address: [address] [place] [address] Performed By: #### 2 4321-2 #### [facility] CLIA [id number] [address] [place] Chloride [Moles/Vol] 96 mmol/L Low 97-105 [facility] Comment on above: Order Comment: Speci men Type: BLOOD SPECIMEN Ordering Facility: [facility] Address: [address] [place] [address] Performed By: #### 2 4321-2 #### [facility] CLIA [id number] [address] [place] CO2 [Moles/Vol] 38 mmol/L High 22-30 [facility] Comment on above: Order Comment: Speci men Type: BLOOD SPECIMEN Ordering Facility: [facility] Address: [address] [place] [address] Performed By: #### 2 4321-2 #### [facility] CLIA [id number] [address] OF [facility] Creatinine [Mass/Vol] 0.73 mg/dL Normal 0.73-1.22 [facility] Comment on above: Order Comment: Speci men Type: BLOOD SPECIMEN Ordering Facility: [facility] Address: [address] [place] [address] Performed By: #### 2 4321-2 #### [facility] CLIA [id number] [address] [place] [address] Creatinine and Glomerular filtration rate.predicted panel (S/P/Bld) 109 mL/min/1.73m??? Normal >=60 [facility] Comment on above: Order Comment: Speci men Type: BLOOD SPECIMEN Ordering Facility: [facility] Address: [address] [place] [address] Result Comment: Ingrid mated Glomerular Filtration Rate (eGFR) is calculated using the 2020 CKD-EPI creatinine equation. This equation utilizes serum creatinine, sex, and age as parameters. The creatinine assay has traceable calibration to isotope dilution-mass spectrometry. Refer to KDIGO guidelines for clinical interpretation. In patients with unstable renal function, e.g. those with acute kidney injury, the eGFR may not accurately reflect actual GFR. Performed By: #### 2 4321-2 #### [facility] CLIA [id number] [address] [place] [address] [place] Glucose [Mass/Vol] 98 mg/dL Normal 74-99 [facility] Comment on above: Order Comment: Meng blancas Type: BLOOD SPECIMEN Ordering Facility: [facility] Address: [address] [place] [address] Result Comment: The [place] Diabetes Association (ADA) provides guidance for cutoff values for fasting glucose and random glucose. The ADA defines fasting as no caloric intake for at least 8 hours. Fasting plasma glucose results between 100 to 125 mg/dL indicate increased risk for diabetes (prediabetes). Fasting plasma glucose results greater than or equal to 126 mg/dL meet the criteria for diagnosis of diabetes. In the absence of unequivocal hyperglycemia, results should be confirmed by repeat testing. In a patient with classic symptoms of hyperglycemia or hyperglycemic crisis, random plasma glucose results greater than or equal to 200 mg/dL meet the criteria for diagnosis of diabetes. Reference: Standards of Medical Care in Diabetes 2016, [place] Diabetes Association. Diabetes Care. 2016.39(Suppl 1). Performed By: #### 2 4321-2 #### [facility] CLIA [id number] [address] [place] [address] [place] Potassium [Moles/Vol] 4.5 mmol/L Normal 3.7-5.1 [facility] Comment on above: Order Comment: Meng blancas Type: BLOOD SPECIMEN Ordering Facility: [facility] Address: [address] [place] [address] Performed By: #### 2 4321-2 #### [facility] CLIA [id number] [address] [place] [address] [place] Sodium [Moles/Vol] 140 mmol/L Normal 136-144 [facility] Comment on above: Order Comment: Dennisi yonny Type: BLOOD SPECIMEN Ordering Facility: [facility] Address: [address] [place] [address] Performed By: #### 2 4321-2 #### [facility] CLIA [id number] [address] [place] [address] [place] Urea nitrogen [Mass/Vol] 21 mg/dL Normal 9-24 [facility] Comment on above: Order Comment: Speci men Type: BLOOD SPECIMEN Ordering Facility: [facility] Address: [address] [place] [address] Performed By: #### 2 4321-2 #### [facility] CLIA [id number] [address] CBC panel Auto (Bld)on 12-30 Erythrocyte distribution width (RBC) [Ratio] 13.8 % Normal 11.5-15.0 [facility] Comment on above: Order Comment: Speci men Type: BLOOD SPECIMEN Ordering Facility: [facility] Address: [address] [place] [address] Performed By: #### 3 3762-6, 65883-2 #### [email or web address] CLIA [id number] [address] Hematocrit (Bld) [Volume fraction] 42.8 % Normal 39.0-51.0 [facility] Comment on above: Order Comment: Speci men Type: BLOOD SPECIMEN Ordering Facility: [facility] Address: [address] [place] [address] Performed By: #### 3 3762-6, 20738-7 #### [facility] CLIA [id number] [address] Hemoglobin (Bld) [Mass/Vol] 12.7 g/dL Low 13.0-17.0 [facility] Comment on above: Order Comment: Speci men Type: BLOOD SPECIMEN Ordering Facility: [facility] Address: [address] [place] [address] Performed By: #### 3 3762-6, 42776-3 #### [email or web address] CLIA [id number] [address] OF [facility] MCH (RBC) [Entitic mass] 30.2 pg Normal 26.0-34.0 [facility] Comment on above: Order Comment: Speci men Type: BLOOD SPECIMEN Ordering Facility: [facility] Address: [address] [place] [address] Performed By: #### 3 3762-6, 26511-0 #### [facility] CLIA [id number] [address] MCHC (RBC) [Mass/Vol] 29.7 g/dL Low 30.5-36.0 [facility] Comment on above: Order Comment: Speci men Type: BLOOD SPECIMEN Ordering Facility: [facility] Address: [address] [place] [address] Performed By: #### 3 3762-6, 55445-4 #### [facility] CLIA [id number] [address] MCV (RBC) [Entitic vol] 101.9 fL High 80.0-100.0 [facility] Comment on above: Order Comment: Speci men Type: BLOOD SPECIMEN Ordering Facility: [facility] Address: [address] [place] [address] Performed By: #### 3 376-6, 39752-7 #### [facility] CLIA [id number] [address] Nucleated RBC (Bld) [#/Vol] 10*3/uL Normal <0.01 [facility] Comment on above: Order Comment: Speci men Type: BLOOD SPECIMEN Ordering Facility: [facility] Address: [address] [place] [address] Performed By: #### 3 3762-6, 21167-8 #### [facility] CLIA [id number] [address] Platelet mean volume (Bld) [Entitic vol] 9.7 fL Normal 9.0-12.7 [facility] Comment on above: Order Comment: Speci men Type: BLOOD SPECIMEN Ordering Facility: [facility] Address: [address] [place] [address] Performed By: #### 3 3762-6, 64654-9 #### [facility] CLIA [id number] [address] [place] Platelets (Bld) [#/Vol] 306 10*3/uL Normal 150-400 [facility] Comment on above: Order Comment: Speci men Type: BLOOD SPECIMEN Ordering Facility: [facility] Address: [address] [place], [place] [address] Performed By: #### 3 3762-6, 52494-6 #### [facility] CLIA [id number] [address] OF [facility] RBC (Bld) [#/Vol] 4.20 10*6/uL Normal 4.20-6.00 [facility] Comment on above: Order Comment: Speci men Type: BLOOD SPECIMEN Ordering Facility: [facility] Address: [address] [place] [address] Performed By: #### 3 3762-6, 79317-6 #### [facility] CLIA [id number] [address] OF [facility] WBC (Bld) [#/Vol] 12.01 10*3/uL High 3.70-11.00 [facility] Comment on above: Order Comment: Speci men Type: BLOOD SPECIMEN Ordering Facility: [facility] Address: [address] [place] [address] Performed By: #### 3 3762-6, 38841-3 #### [facility] CLIA [id number] [address] CONSULT PROGon 12-29-2023 CONSULT PROG HNO ID: [id number] Author: KASIA ABARCA PA-C Service: Pulmonary Disease Author Type: Physician Weigh Machine Operator Type: Consult Progress Note Filed: 12/29/2023 10:42 Note Text: [facility] PULMONARY MEDICINE CONSULT PROGRESS NOTE SERVICE DATE: December 29, 2023 SERVICE TIME: 10:33 AM INTERVAL HPI: Javier Dickson is a 53 year old male with a PMHx significant for emphysema. Seen today for follow-up today. Weaned to 3 L of oxygen today. Slept okay overnight. No overnight events. Continues to feel short of breath and has a productive cough with white sputum. No change in sputum color. Denies fever, chills, chest pain. Objective CURRENT MEDICATIONS Current Facility-Administered Medications Medication Dose Route Frequency Provider Last Rate Last Admin aluminum-magnesium hydroxide-simethicone 200-200-20 mg/5 mL 30 mL 30 mL ORAL q 6 H PRN Raven Lara APRN.SECURITY MONITOR 30 mL at 12/29/23 0209 ipratropium-albuterol 3 mL nebulizer solution (DUONEB) 3 mL INHALATION QID Kasia Abarca PA-C 3 mL at 12/28/23 1107 mupirocin 2 % 0.5 g nasal ointment (BACTROBAN) 0.5 g NASAL BID Kasia Abarca PA-C 0.5 g at 12/29/23 0829 NaCl 0.9% iv flush bag 20 mL INTRAVENOUS PRN Radha Sandhu MD enoxaparin 40 mg injection (LOVENOX) 40 mg SUBCUTANEOUS q 24 HR Radha Sandhu MD 40 mg at 12/29/23 0612 azithromycin 500 mg in D5W 250 mL Vial-Bag (ZITHROMAX) 500 mg INTRAVENOUS DAILY Radha Sandhu MD Stopped at 12/29/23 0929 predniSONE 40 mg tab(s) (DELTASONE) 40 mg ORAL DAILY Radha Sandhu MD 40 mg at 12/29/23 0829 ipratropium-albuterol 3 mL nebulizer solution (DUONEB) 3 mL INHALATION q 4 H PRN Radha Sandhu MD 3 mL at 12/29/23 0955 Intake/Output Summary (Last 24 hours) at 12/29/2023 1033 Last data filed at 12/28/20232026 Gross per 24 hour Intake 620 ml Output 1700 ml Net -1080 ml LABS: CBC, Coags, BMP, Mg, Phos Liver Function, Amylase, AND Lipase WBC 13.26 12/28/2023 RBC 4.07 12/28/2023 HGB 12.4 12/28/2023 Hematocrit 41.4 12/28/2023 MCV 101.7 12/28/2023 MCH 30.5 12/28/2023 MCHC 30.0 12/28/2023 RDW-CV 13.6 12/28/2023 Platelet Count 291 12/28/2023 MPV 9.7 12/28/2023 Neutrophils % 82.5 12/27/2023 Lymphocytes % 7.6 12/27/2023 Monocytes % 8.1 12/27/2023 Eosinophils % 1.2 12/27/2023 Basophils % 0.3 12/27/2023 Abs Neut 7.09 12/27/2023 Abs Taney 0.70 12/27/2023 Abs Eosin 0.10 12/27/2023 Abs Baso 0.03 12/27/2023 Glucose (mg/dL) Date Value 12/28/2023 108 06/21/2020 107 Potassium (mmol/L) Date Value 12/28/2023 4.6 06/21/2020 4.0 Sodium (mmol/L) Date Value 12/28/2023 139 06/21/2020 140 Chloride (mmol/L) Date Value 12/28/2023 96 06/21/2020 103 CO2 (mmol/L) Date Value 12/28/2023 37 06/21/2020 28 Creatinine (mg/dL) Date Value 12/28/2023 0.73 06/21/2020 0.90 BUN (mg/dL) Date Value 12/28/2023 22 06/21/2020 15 Anion Gap (mmol/L) Date Value 12/28/2023 6 06/21/2020 9 Calcium (mg/dL) Date Value 06/21/2020 9.1 Calcium, Total (mg/dL) Date Value 12/28/2023 8.4 Protein, Total (g/dL) Date Value 11/15/2023 5.9 06/21/2020 6.6 Albumin (g/dL) Date Value 11/15/2023 3.6 06/21/2020 4.3 Bilirubin, Total (mg/dL) Date Value 11/15/2023 0.2 06/21/2020 0.2 Alkaline Phosphatase (U/L) Date Value 11/15/2023 76 06/21/2020 101 AST (U/L) Date Value 11/15/2023 16 06/21/2020 25 ALT (U/L) Date Value 11/15/2023 24 06/21/2020 20 Component 12/27/2023 NT Pro BNP 3,703 (H) Procalcitonin 0.07 VBG: Component 12/27/2023 12/27/2023 2:21 AM 4:28 AM pH,Venous(POCT) 7.239 (A) 7.303 (A) pCO2,Venous(POCT) 94.3 (A) 77.7 (A) pO2,Venous(POCT) 47.4 (A) 31.9 HCO3,Venous(POCT) 38.9 (A) 37.3 (A) Total CO2 (POCT) 36.1 (A) 34.5 (A) Base Excess,Venous(POCT) 7.8 (A) 8.3 (A) sO2 (POCT) 70.3 48.4 O2Hb,Venous(POCT) 68.2 (A) 47.1 COHb,Venous(POCT) 2.5 (A) 1.7 (A) MetHb,Venous(POCT) 0.5 (A) 0.9 HGB,Venous(POCT) 13.7 13.3 (A) HCT,Venous(POCT) 41.9 40.8 (A) Lactate (POCT) 1.5 2.1 (A) Glucose (POCT) 95 105 (A) Potassium (POCT) 4.3 4.7 (A) Sodium (POCT) 140 141 Chloride (POCT) 99 (A) 98 (A) Ionized Ca (POCT) 1.19 1.18 MICRO: Component 12/27/2023 COVID 19 Result Not detected Influenza A PCR Not detected Influenza B PCR Not detected RSV PCR Not detected Staph aureus PCR Positive for Staphylococcus aureus by PCR. (A) MRSA PCR Positive for MRSA by PCR (A) Test Result Negative for Streptococcus pneumoniae antigen. Legionella Urine Ag Negative IMAGING: CXR, 12/27/23: RESULT: Lines, tubes, and devices: None. Lungs and pleura: Prominence of the pulmonary interstitium. Small right pleural effusion with associated hazy opacities. Cardiomediastinal silhouette: Stable cardiomediastinal silhouette. Bilateral LE US, 12/27/23: IMPRESSION: Negative study for proximal DVT in the left lower extremity. Negative calf DVT in the left lower extremity. Negative study for superficial thrombophleb (more content not included)... Normal [facility] THERAPY NTon 12-29-2023 THERAPY NT HNO ID: [id number] Author: MILDAY REDDY OTR/L Service: Occupational Therapy Author Type: Occupational Therapist Type: Therapy (PT/OT/Speech/Resp) Filed: 12/29/2023 09:19 Note Text: Occupational Therapy Evaluation Summary SERVICE DATE: 12/29/2023 SERVICE TIME: 08 to 08 ROOM: [id number] OT 6 Clicks Score: 20 DISCHARGE RECOMMENDATIONS Home OT Recommended Discharge Disposition Comments: pt would benefit from home OT for WSEC techs and safety with ADLs at home Recommended Discharge Equipment: Commode-Bedside ASSESSMENT Response to Therapy Interventions: Good Participation in Activities, Improved Tolerance for Activity, Multiple Ongoing Medical Issues Reinforced pursed lip recovery breathing after getting back to bathroom. Educated and discussed work simplification/energy conservation techniques specific to relevant ADL/IADL tasks. Pt expresses difficulty going up and down the steps for toileting. Educated on using bedside commode at home. Pt rpts his memory is 'not what is used to be' but his son helps with medications and keeps him on track. PRECAUTIONS Fall Risk, Lines/Tubes/Drains CURRENT HOSPITAL COURSE 53 y.o male admitted for acute hypoxic respiratory failure, respiratory acidosis, placed on BiPAP, COPD exacerbation, weaned to NC Relevant Past Medical History: COPD HOME LIVING Patient Lives With: Family (son and DIL) Assistance Available: Part-Time Entry To Home: Stairs, With Rail Number Of Stairs Into Home: 3 Number Of Stairs To Bed/Bath: 2 flights Stairs to Bed/Bath with: Unilateral Rail Tub/Shower Type: tub/shower Laundry: main floor Equipment Owned: (none) PRIOR FUNCTIONAL LEVEL Required Assistance Assistance Required With: Shopping, Transportation, Cleaning Patient reports ambulating without a device, requires assist with lower body dressing and noted difficulty with negotiating stairs at home due to shortness of breath. Son works during the day but [id number] at home, however patient reports being too stubborn to ask for assistance SUBJECTIVE Pt rpts SOB, just came back from the BR COGNITION Responsiveness: Alert, Awake Follows Commands: 2-step Commands Executive Function Deficits: Safety Awareness, Problem Solving, Insight to Deficits, Judgement THERAPY DIAGNOSIS Reduced mobility-other, Decreased activities of daily living (ADL), Muscle Weakness (generalized), Unsteadiness on feet, Abnormalities of gait and mobility-other, Signs and Symptoms Involving Cognitive Functions and Awareness TREATMENT INTERVENTIONS Evaluation Skilled Treatment Time (minutes): 20 $ Evaluation - Moderate ([id number]) Billed Units: 1 unit TRAINING AND EDUCATION PROVIDED Adaptive Equipment/DME, Bed Mobility, Benefits of In-Hospital Mobility, Energy Conservation, Functional Mobility Involving ADLs, Grooming Tasks, Role of Occupational Therapy, Positioning, Precautions/Restrictio ns, Sitting Balance to Improve [place] with ADLs/Self-Care THERAPEUTIC SKILLS USED Activity Dosing, Cues for Sequencing/Proper Technique for Activity, Cuing Tactile, Cuing Verbal, Cuing Visual, Physical Assist, Therapeutic Use of Self FUNCTIONAL STATUS Activities of Daily Living Assist Level Additional Information Feeding Independent Grooming Contact Guard Assistance Bathing Upper Body Contact Guard Assistance Bathing Lower Body Contact Guard Assistance Dressing Upper Body Independent Dressing Lower Body Contact Guard Assistance Toileting Contact Guard Assistance Mobility Assist Level Additional Information Bed Mobility Rolling: Independent Supine To Sit: Independent Sit To Supine: Independent Sit to Stand Stand to Sit Bed to Chair Toilet/Commode Shower Functional Mobility Additional Information, Stand By Assistance Functional Mobility Device: None observed walking back from BR with RN in room Range of Motion: WFL Strength: WFL ACTIVITY TOLERANCE BALANCE Static Standing Balance: Good Dynamic Standing Balance: Fair GOALS Grooming with: Modified Independent Upper Body Bathing with: Modified Independent Upper Body Dressing with: Modified Independent Lower Body Bathing with: Modified Independent Lower Body Dressing with: Modified Independent Toilet Hygiene with: Modified Independent Toilet Transfer with: Modified Independent Tolerate (minutes of functional activity): 20 (standing activitiy phu with 2 or less rest breaks) Functional Activity with: Independent Additional Goal 1: Pt to demo/verabalize at least 2 WSEC techs Rehab Potential: Excellent PLAN OT Frequency: 2 Times Per Week Treatment Interventions: Education, Self Care/Home Management, Functional Mobility Training, Balance Training, Energy Conservation Training SIGNATURE: BJ Ramos PATIENT NAME: Javier Dickson DATE: December 29, 2023 TIME: 9:07 AM [facility] 36on 12-28-2023 36 Patients last visit 07/19/22. Please advise. [facility] [employer] [facility] 36 Name of caller: Robert hurd from [facility] Contact phone number: [phone] opt #5 Relationship to Patient: Lucy from [facility] Provider: Dr. Batista Practice: [facility] Chief Complaint/Reason for Call: Lucy from [facility] calling to see if Dr. Batista will follow the patient for home care. Please advise. Best time of day caller can be reached: any Patient advised that office/PCP has 24-48 business hours to return their call: No Normal [facility] Basic metabolic 2000 panelon 12-28-2023 Anion gap [Moles/Vol] 6 mmol/L Low 9-18 [facility] Comment on above: Order Comment: Speci men Type: BLOOD SPECIMENOrdering Facility: [facility] Address: [address] [place] [address] Performed By: #### 2 4321-2 ####[facility] LABORATORYCLIA [id number] [place] [address] [place] Calcium [Mass/Vol] 8.4 mg/dL Low 8.5-10.2 [facility] Comment on above: Order Comment: Speci men Type: BLOOD SPECIMENOrdering Facility: [facility] Address: [address] [place] [address] Performed By: #### 2 4321-2 ####[facility] LABORATORYCLIA [id number] [place] [address] [place] Chloride [Moles/Vol] 96 mmol/L Low 97-105 [facility] Comment on above: Order Comment: Speci men Type: BLOOD SPECIMENOrdering Facility: [facility] Address: [address] [place] [address] Performed By: #### 2 4321-2 ####[facility]ORYCLIA [id number] [place] [address] [place] CO2 [Moles/Vol] 37 mmol/L High 22-30 [facility] Comment on above: Order Comment: Speci men Type: BLOOD SPECIMENOrdering Facility: [facility] Address: [address] [place] [address] Performed By: #### 2 4321-2 ####[facility] LABORATORYCLIA [id number] [place] [address] [place] Creatinine [Mass/Vol] 0.73 mg/dL Normal 0.73-1.22 [facility] Comment on above: Order Comment: Meng blancas Type: BLOOD SPECIMENOrdering Facility: [facility] Address: [address] [place] [address] Performed By: #### 2 4321-2 ####[facility] LABORATORYCLIA [id number] [address] [place] Creatinine and Glomerular filtration rate.predicted panel (S/P/Bld) 109 mL/min/1.73m??? Normal >=60 [facility] Comment on above: Order Comment: Dennisnaren blancas Type: BLOOD SPECIMENOrdering Facility: [facility] Address: [address] [place] [address] Result Comment: Ingrid mated Glomerular Filtration Rate (eGFR) is calculated using the 2020 CKD-EPI creatinine equation. This equation utilizes serum creatinine, sex, and age as parameters. The creatinine assay has traceable calibration to isotope dilution-mass spectrometry. Refer to KDIGO guidelines for clinical interpretation. In patients with unstable renal function, e.g. those with acute kidney injury, the eGFR may not accurately reflect actual GFR. Performed By: #### 2 4321-2 ####[facility]ORATORYCLIA [id number] [place] [address] [place] Glucose [Mass/Vol] 108 mg/dL High 74-99 [facility] Comment on above: Order Comment: Meng blancas Type: BLOOD SPECIMENOrdering Facility: [facility] Address: [address] [place] [address] Result Comment: The [place] Diabetes Association (ADA) provides guidance for cutoff values for fasting glucose and random glucose. The ADA defines fasting as no caloric intake for at least 8 hours. Fasting plasma glucose results between 100 to 125 mg/dL indicate increased risk for diabetes (prediabetes). Fasting plasma glucose results greater than or equal to 126 mg/dL meet the criteria for diagnosis of diabetes. In the absence of unequivocal hyperglycemia, results should be confirmed by repeat testing. In a patient with classic symptoms of hyperglycemia or hyperglycemic crisis, random plasma glucose results greater than or equal to 200 mg/dL meet the criteria for diagnosis of diabetes. Reference: Standards of Medical Care in Diabetes 2016, [place] Diabetes Association. Diabetes Care. 2016.39(Suppl 1). Performed By: #### 2 4321-2 ####[facility]ATORYCLIA [id number] [place] [address] [place] Potassium [Moles/Vol] 4.6 mmol/L Normal 3.7-5.1 [facility] Comment on above: Order Comment: Speci men Type: BLOOD SPECIMENOrdering Facility: [facility] Address: [address] [place] [address] Performed By: #### 2 4321-2 ####[facility]ORATORYCLIA [id number] [place] [address] [place] Sodium [Moles/Vol] 139 mmol/L Normal 136-144 [facility] Comment on above: Order Comment: Speci men Type: BLOOD SPECIMENOrdering Facility: [facility] Address: [address] [place] [address] Performed By: #### 2 4321-2 ####[facility] LABORATORYCLIA [id number] [address] [place] Urea nitrogen [Mass/Vol] 22 mg/dL Normal 9-24 [facility] Comment on above: Order Comment: Speci men Type: BLOOD SPECIMENOrdering Facility: [facility] Address: [address] [place] [address] Performed By: #### 2 4321-2 ####[facility]ORATORYCLIA [id number] [address] [place] CBC panel Auto (Bld)on 12-28 Erythrocyte distribution width (RBC) [Ratio] 13.6 % Normal 11.5-15.0 [facility] Comment on above: Order Comment: Speci men Type: BLOOD SPECIMEN Ordering Facility: [facility] Address: [address] [place] [address] Performed By: #### L [id number] #### [facility] CLIA [id number] [address] STATES OF [facility] Hematocrit (Bld) [Volume fraction] 41.4 % Normal 39.0-51.0 [facility] Comment on above: Order Comment: Speci men Type: BLOOD SPECIMEN Ordering Facility: [facility] Address: [address] [place] [address] Performed By: #### L [id number] #### [facility] CLIA [id number] [address] Hemoglobin (Bld) [Mass/Vol] 12.4 g/dL Low 13.0-17.0 [facility] Comment on above: Order Comment: Speci men Type: BLOOD SPECIMEN Ordering Facility: [facility] Address: [address] [place] [address] Performed By: #### L [id number] #### [facility] CLIA [id number] [address] MCH (RBC) [Entitic mass] 30.5 pg Normal 26.0-34.0 [facility] Comment on above: Order Comment: Speci men Type: BLOOD SPECIMEN Ordering Facility: [facility] Address: [address] [place] [address] Performed By: #### L [id number] #### [facility] CLIA [id number] [address] MCHC (RBC) [Mass/Vol] 30.0 g/dL Low 30.5-36.0 [facility] Comment on above: Order Comment: Speci men Type: BLOOD SPECIMEN Ordering Facility: [facility] Address: [address] [place] [address] Performed By: #### L [id number] #### [facility] CLIA [id number] [address] MCV (RBC) [Entitic vol] 101.7 fL High 80.0-100.0 [facility] Comment on above: Order Comment: Speci men Type: BLOOD SPECIMEN Ordering Facility: [facility] Address: [address] [place] [address] Performed By: #### L [id number] #### [facility] CLIA [id number] [address] Nucleated RBC (Bld) [#/Vol] 10*3/uL Normal <0.01 [facility] Comment on above: Order Comment: Speci men Type: BLOOD SPECIMEN Ordering Facility: [facility] Address: [address] [place] [address] Performed By: #### L [id number] #### [facility] CLIA [id number] [address] Platelet mean volume (Bld) [Entitic vol] 9.7 fL Normal 9.0-12.7 [facility] Comment on above: Order Comment: Speci men Type: BLOOD SPECIMEN Ordering Facility: [facility] Address: [address] [place] [address] Performed By: #### L [id number] #### [facility] CLIA [id number] [address] [place] Platelets (Bld) [#/Vol] 291 10*3/uL Normal 150-400 [facility] Comment on above: Order Comment: Speci men Type: BLOOD SPECIMEN Ordering Facility: [facility] Address: [address] [place] [address] Performed By: #### L [id number] #### [facility] CLIA [id number] [address] [place] RBC (Bld) [#/Vol] 4.07 10*6/uL Low 4.20-6.00 [facility] Comment on above: Order Comment: Speci men Type: BLOOD SPECIMEN Ordering Facility: [facility] Address: [address] [place] [address] Performed By: #### L [id number] #### [facility] CLIA [id number] [address] [place] WBC (Bld) [#/Vol] 13.26 10*3/uL High 3.70-11.00 [facility] Comment on above: Order Comment: Speci men Type: BLOOD SPECIMEN Ordering Facility: [facility] Address: [address] [place] [address] Performed By: #### L [id number] #### [facility] CLIA [id number] [address] [place] [id number] [place] Felice 12-28-2023 CNPN Telephone (HCSIND) JAVIER DICKSON ([id number]) 1970 M Date Time Provider Department 12/28/23 MAYKEL JIMENEZ HCSIND During your visit today, we recorded the following information about you: Amee Yarbrough LPN 01/01/2024 3:06 PM Signed Allergies As of Date: 12/28/2023 (No Known Allergies) Date Reviewed: 12/28/2023 Reviewed by: Elodia Tripathi, RN - Fully Assessed Reason for Visit: Home Care [4073] Cmt: to follow Prescriptions as of 01/01/2024 - iv contrast (will be provided with radiology test) CT Chest W -Inject, intravenously, once for 1 dose.No IV access, insert saline lock prior to the beginning of sedation, infusion, injection of imaging exam. Discontinue saline lock post exam. If Pt. has a central line or IVAD, may access for administration according to line specific nursing protocol. Once exam is complete flush line and de-access according to line specific nursing protocol in the CT contrast administration guidelines link. - ipratropium-albuterol (DUONEB) 0.5 mg-3 mg(2.5 mg base)/3 mL nebu Inhale 3 mL as instructed four times daily. - albuterol HFA (PROVENTIL HFA, VENTOLIN HFA) 90 mcg/actuation inhaler Inhale 2 Puffs as instructed every 4 hours as needed for wheezing/shortness of breath. - fluticasone-salmeterol (ADVAIR DISKUS) 100-50 mcg/dose inhaler Inhale 1 Puff as instructed two times a day. - tiotropium bromide (SPIRIVA RESPIMAT) 2.5 mcg/actuation inhaler Inhale 2 Puffs as instructed once daily. Facility-Administered Medications as of 01/01/2024 - budesonide 0.5 mg/2 mL 0.5 mg (PULMICORT) - aluminum-magnesium hydroxide-simethicone 200-200-20 mg/5 mL 30 mL - polyethylene glycol 3350 17 g packet - ipratropium-albuterol 3 mL nebulizer solution (DUONEB) - mupirocin 2 % 0.5 g nasal ointment (BACTROBAN) - NaCl 0.9% iv flush bag - enoxaparin 40 mg injection (LOVENOX) - ipratropium-albuterol 3 mL nebulizer solution (DUONEB) Problem List As Of Date 12/28/2023 Noted Resolved Open neck wound [S11.90XA] 06/21/2020 Nicotine use disorder, F17.2 [F17.200] 08/05/2020 Cold injury [T69.9XXA] 01/10/2021 Pain in both feet [M79.671, M79.672] 01/14/2021 Drug abuse (HCC) [F19.10] 01/14/2021 COPD with exacerbation (HCC) [J44.1] 11/13/2023 RSV (acute bronchiolitis due to respiratory syn*11/13/2023 Sepsis with encephalopathy without septic shock*11/13/2023 Acute respiratory failure with hypoxia and hype*11/13/2023 Respiratory acidosis [E87.29] 11/13/2023 Community acquired pneumonia of right lower lob*11/16/2023 Tobacco abuse [Z72.0] 11/16/2023 Tobacco abuse counseling [Z71.6] 11/16/2023 On deep vein thrombosis (DVT) prophylaxis [Z79.*11/16/2023 Marijuana abuse [F12.10] 11/17/2023 Severe protein-calorie malnutrition (HCC) [E43] 11/22/2023 Acute hypercapnic respiratory failure (HCC) [J9*12/27/2023 Acute on chronic respiratory failure with hypox*12/27/2023 Polysubstance (excluding opioids) dependence (H*12/27/2023 Chronic diastolic CHF (congestive heart failure*12/27/2023 Former smoker [Z87.891] 12/28/2023 Pleural effusion [J90] 12/28/2023 MRSA nasal colonization [Z22.322] 12/28/2023 Mediastinal lymphadenopathy [R59.0] 12/28/2023 Encounter Status:Closed by MAYKEL JIMENEZ on 12/28/23 Normal [facility] CONSULT PROGon 12-28-2023 CONSULT PROG HNO ID: [id number] Author: KASIA ABARCA PA-C Service: Pulmonary Disease Author Type: Physician Weigh Machine Operator Type: Consult Progress Note Filed: 12/28/2023 10:33 Note Text: [facility] PULMONARY MEDICINE ICU FOLLOW-UP NOTE SERVICE DATE: December 28, 2023 SERVICE TIME: 10:10 AM INTERVAL HPI: Javier Dickson is a 53 year old male with a PMHx significant for emphysema. Seen today for ICU follow-up. Admitted 12/27 from ED to ICU for acute hypoxic and hypercapnic respiratory failure secondary to COPD exacerbation left-sided pleural effusion. Patient initially required BiPAP but improved was transferred to the regular medical floor later the same day. Patient seen in the ICU today while he was awaiting a bed on the floor. Currently on 4 L, not on home O2. Not like wearing the BiPAP mask. Former smoker, quit 1 year ago. Was prescribed Advair and Spiriva after last hospital admission at the beginning of November where he was treated for RSV/pneumonia, but he ran out of these inhalers and has not been using anything at home. 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 Admits to shortness of breath and a dry, nonproductive cough. Denies wheezing, fever, chills, chest pain. Objective CURRENT MEDICATIONS Current Facility-Administered Medications Medication Dose Route Frequency Provider Last Rate Last Admin NaCl 0.9% iv flush bag 20 mL INTRAVENOUS PRN aRdha Sandhu MD enoxaparin 40 mg injection (LOVENOX) 40 mg SUBCUTANEOUS q 24 HR Radha Sandhu MD 40 mg at 12/28/23 0544 ipratropium-albuterol 3 mL nebulizer solution (DUONEB) 3 mL INHALATION q 4 H while awake Radha Sandhu MD 3 mL at 12/27/23 1923 azithromycin 500 mg in D5W 250 mL Vial-Bag (ZITHROMAX) 500 mg INTRAVENOUS DAILY Radha Sandhu MD 250 mL/hr at 12/28/23 0809 500 mg at 12/28/23 0809 predniSONE 40 mg tab(s) (DELTASONE) 40 mg ORAL DAILY Radha Sandhu MD 40 mg at 12/28/23 0809 ipratropium-albuterol 3 mL nebulizer solution (DUONEB) 3 mL INHALATION q 4 H PRN Radha Sandhu MD Intake/Output Summary (Last 24 hours) at 12/28/2023 1010 Last data filed at 12/28/2023 0809 Gross per 24 hour Intake 1343 ml Output 1325 ml Net 18 ml LABS: CBC, Coags, BMP, Mg, Phos Liver Function, Amylase, AND Lipase WBC 13.26 12/28/2023 RBC 4.07 12/28/2023 HGB 12.4 12/28/2023 Hematocrit 41.4 12/28/2023 MCV 101.7 12/28/2023 MCH 30.5 12/28/2023 MCHC 30.0 12/28/2023 RDW-CV 13.6 12/28/2023 Platelet Count 291 12/28/2023 MPV 9.7 12/28/2023 Neutrophils % 82.5 12/27/2023 Lymphocytes % 7.6 12/27/2023 Monocytes % 8.1 12/27/2023 Eosinophils % 1.2 12/27/2023 Basophils % 0.3 12/27/2023 Abs Neut 7.09 12/27/2023 Abs Taney 0.70 12/27/2023 Abs Eosin 0.10 12/27/2023 Abs Baso 0.03 12/27/2023 Glucose (mg/dL) Date Value 12/28/2023 108 06/21/2020 107 Potassium (mmol/L) Date Value 12/28/2023 4.6 06/21/2020 4.0 Sodium (mmol/L) Date Value 12/28/2023 139 06/21/2020 140 Chloride (mmol/L) Date Value 12/28/2023 96 06/21/2020 103 CO2 (mmol/L) Date Value 12/28/2023 37 06/21/2020 28 Creatinine (mg/dL) Date Value 12/28/2023 0.73 06/21/2020 0.90 BUN (mg/dL) Date Value 12/28/2023 22 06/21/2020 15 Anion Gap (mmol/L) Date Value 12/28/2023 6 06/21/2020 9 Calcium (mg/dL) Date Value 06/21/2020 9.1 Calcium, Total (mg/dL) Date Value 12/28/2023 8.4 Protein, Total (g/dL) Date Value 11/15/2023 5.9 06/21/2020 6.6 Albumin (g/dL) Date Value 11/15/2023 3.6 06/21/2020 4.3 Bilirubin, Total (mg/dL) Date Value 11/15/2023 0.2 06/21/2020 0.2 Alkaline Phosphatase (U/L) Date Value 11/15/2023 76 06/21/2020 101 AST (U/L) Date Value 11/15/2023 16 06/21/2020 25 ALT (U/L) Date Value 11/15/2023 24 06/21/2020 20 Component 12/27/2023 NT Pro BNP 3,703 (H) Procalcitonin 0.07 VBG: Component 12/27/2023 12/27/2023 2:21 AM 4:28 AM pH,Venous(POCT) 7.239 (A) 7.303 (A) pCO2,Venous(POCT) 94.3 (A) 77.7 (A) pO2,Venous(POCT) 47.4 (A) 31.9 HCO3,Venous(POCT) 38.9 (A) 37.3 (A) Total CO2 (POCT) 36.1 (A) 34.5 (A) Base Excess,Venous(POCT) 7.8 (A) 8.3 (A) sO2 (POCT) 70.3 48.4 O2Hb,Venous(POCT) 68.2 (A) 47.1 COHb,Venous(POCT) 2.5 (A) 1.7 (A) MetHb,Venous(POCT) 0.5 (A) 0.9 HGB,Venous(POCT) 13.7 13.3 (A) HCT,Venous(POCT) 41.9 40.8 (A) Lactate (POCT) 1.5 2.1 (A) Glucose (POCT) 95 105 (A) Potassium (POCT) 4.3 4.7 (A) Sodium (POCT) 140 141 Chloride (POCT) 99 (A) 98 (A) Ionized Ca (POCT) 1.19 1.18 MICRO: Component 12/27/2023 COVID 19 Result Not detected Influenza A PCR Not detected Influenza B PCR Not detected RSV PCR Not detected Staph aureus PCR Positive for Staphylococcus aureus by PCR. (A) MRSA PCR Positive for MRSA by PCR (A) Test Result Negative for Streptococcus pneumoniae antigen. Legionella Urine Ag Negative IMAGING: CXR, 12/27/23: RESULT: Lines, tubes, and devices: None. Lungs and pleura: Prominence of the pulmonary interstit (more content not included)... Normal [facility] NURSING PROGon 12-28-2023 NURSING PROG HNO ID: [id number] Author: ELODIA TRIPATHI RN Service: ? Author Type: Registered Nurse Type: Nursing Progress Note Filed: 12/28/2023 15:04 Note Text: Admission/Transfer Note PATIENT NAME: Javier Dickson Patient Location: [place] [address] Room: [place] [address] Patient transferred to [facility] via wheelchair in stable condition. Actions taken: Report given/called to [facility]. Patient belongings with patient. This note was completed by: Elodia Tripathi Normal [facility] THERAPY NTon 12-28-2023 THERAPY NT HNO ID: [id number] Author: YOEL ALFARO PT Service: Physical Therapy Author Type: Physical Therapist Type: Therapy (PT/OT/Speech/Resp) Filed: 12/28/2023 11:34 Note Text: Physical Therapy Evaluation Summary SERVICE DATE: 12/28/2023 SERVICE TIME: 6360 to 7647 ROOM: [place] [address] PT 6 Clicks Score: 19 DISCHARGE RECOMMENDATIONS Home PT Recommended Discharge Disposition Comments: Patient to benefit from Home PT at discharge to improve strength and activity tolerance. 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 Notified RN who notified sound physician. PRECAUTIONS Fall Risk, Lines/Tubes/Drains CURRENT HOSPITAL COURSE 53 y.o male admitted for acute hypoxic respiratory failure, respiratory acidosis, placed on BiPAP, COPD exacerbation Relevant Past Medical History: COPD HOME LIVING Patient Lives With: Family (son and DIL) Assistance Available: Part-Time Entry To Home: Stairs, With Rail Number Of Stairs Into Home: 3 Number Of Stairs To Bed/Bath: 2 flights Stairs to Bed/Bath with: Unilateral Rail Tub/Shower Type: tub shower Laundry: main floor Equipment Owned: (none) PRIOR FUNCTIONAL LEVEL Required Assistance Assistance Required With: Shopping, Transportation, Cleaning, Self Care Patient reports ambulating without a device, requires assist with lower body dressing and noted difficulty with negotiating stairs at home due to shortness of breath. Son works during the day but [id number] at home, however patient reports being too stubborn to ask for assistance SUBJECTIVE Patient agreeable to PT session THERAPY DIAGNOSIS Muscle Weakness (generalized), Unsteadiness on feet, General symptoms and signs-other TREATMENT INTERVENTIONS Evaluation, Therapeutic Activity (23697) $ Evaluation-Moderate (12665) Billed Units: 1 unit Therapeutic Activity (88660) Treatment Minutes: 8 $ Therapeutic Activity (31540) Billed Units: 1 unit Educated patient on role of Acute care PT, encouraging mobility with staff assistance during admission and assisting with safe discharge plan based on current mobility. Encouraged patient to sit up in chair for all meals to limit time in bed and prevent deconditioning. Cues/assist with functional mobility and ambulation as listed in grid below, requires cueing for posture and pursed lips breathing throughout. Timed Code Treatment (minutes): 8 Skilled Treatment Time (minutes): 23 TRAINING AND EDUCATION PROVIDED Assistive Device Use, Bed Mobility, Benefits of In-Hospital Mobility, Falls Prevention, Gait Pattern, Reduction of Deviations, Energy Conservation, Role of Physical Therapy, Transfers THERAPEUTIC SKILLS USED Activity Dosing, Assessment of Tolerance Including Vitals Response to Activity, Cues for Sequencing/Proper Technique for Activity, Cuing Verbal, Cuing Tactile, Postural Alignment Correction FUNCTIONAL STATUS Bed Mobility Supine To Sit: Stand By Assistance Scooting: Stand By Assistance Transfers Sit To Stand: Contact Guard Assistance, Additional Information cues for hand placement, power through LE Stand To Sit: Contact Guard Assistance, Additional Information cues for hand placement, slowly lower bottom Bed to Chair Gait Contact Guard Assistance, Additional Information patient ambulating with slower steady silvestre, cues for posture and pursed lips breathing, notably short of breath with further distance, requires standing rest break, no loss of balance noted Gait Device: Wheeled Walker General Deviations/Observation s: Silvestre decreased, Flexed trunk posture, Step length decreased Gait Distance (feet): 80' x 2 Stairs ROM WFL STRENGTH Strength Limitation Comments: BLE grossly 4-/5 BALANCE Static Sitting Balance: Good Dynamic Sitting Balance: Good Static Standing Balance: Fair Dynamic Standing Balance: Fair ACTIVITY TOLERANCE Standing Activity: ambulation GOALS Patient will demonstrate progress with functional mobility to allow safe discharge to home with available support and/or physical assistance. Able to Perform HEP with: Verbal Cues Only Transfer Supine to/from Sit with: Independent Transfer Sit to/from Stand with: Independent Ambulate with: Supervision Distance: 100' Device: Wheeled Walker Ambulate Up and Down Steps with: Stand By Assistance Number of Steps: 8 Device: Rail Transfer: stepping bed to/from chair with SBA using wheeled walker Rehab Potential: Good PLAN PT Frequency: 4 Times Per Week (2-4) Treatment Interventions: Education, Energy Conservation Training, Strengthening, Functional Mobility Training Plan for Next Visit: Gait Training, (more content not included)... Normal [facility] ALLIED HEALTHon 12-27-2023 ALLIED HEALTH HNO ID: [id number] Author: SERA PEDRO RT(R) Service: Radiology Author Type: Technologist Type: Allied Health Filed: 12/27/2023 06:11 Note Text: Radiology Service Progress Note DATE OF SERVICE: December 27, 2023 TIME: 5:58 AM PATIENT IDENTITY VERIFICATION COMPLETED USING TWO (2) STANDARD IDENTIFIERS: Name and Date of confirmed by patient verbally and Name and Date of confirmed by identification band. FALL SCREENING: Has the patient had 2 falls in the last year or 1 fall with injury or currently using an Ambulatory Assistive Device (Walker, Cane, Wheelchair, Crutches, etc.)? Emergency Room Patient: Screened in ED PATIENT GENDER DATA: Male PATIENT RELEVANT IMPLANT DATA REVIEWED: Not Applicable PATIENT PRESENTS WITH AN IMPLANTABLE OR ATTACHED INCOME TAX ADJUSTER: No ALLERGIES: Reviewed and unchanged CONTRAST ALLERGY: NO. EXAM: CT -CONTRAST INDUCED NEPHROPATHY RISK FACTORS: Not applicable CREATININE: Creatinine Date Value Ref Range Status 12/27/2023 0.74 0.73 - 1.22 mg/dL Final 11/22/2023 0.62 (L) 0.73 - 1.22 mg/dL Final 11/19/2023 0.62 (L) 0.73 - 1.22 mg/dL Final Estimated Glomerular Filtration Rate Date Value Ref Range Status 12/27/2023 109 >=60 mL/min/1.73m? Final Comment: Estimated Glomerular Filtration Rate (eGFR) is calculated using the 2020 CKD-EPI creatinine equation. This equation utilizes serum creatinine, sex, and age as parameters. The creatinine assay has traceable calibration to isotope dilution-mass spectrometry. Refer to KDIGO guidelines for clinical interpretation. In patients with unstable renal function, e.g. those with acute kidney injury, the eGFR may not accurately reflect actual GFR. eGFR- Date Value Ref Range Status 01/10/2021 >60 Final P.O.C.T. RESULTS: N/A December 27, 2023 TREATMENT: N/A PERIPHERAL IV DATA: Ambulatory: A peripheral IV was started in the Right with a Butterfly: 20 gauge. RADIOLOGY DEPARTMENT: CT; Exam(s) Completed: Chest SIGNATURE: RT Morteza(R) PATIENT NAME: Javier Dickson DATE: December 27, 2023 TIME: 5:[address] [facility] Bacteria Bld Culton 12-27-19 24 Bacteria identified Cx Nom (Bld) CULTURE, BLOOD: No growth [address] [facility] Comment on above: Performed By: #### L [id number] #### [facility] CLIA [id number] [address] [place] [address] [place] Basic metabolic 2000 panelon 12-27-2023 Anion gap [Moles/Vol] 5 mmol/L Low 9-18 [facility] Comment on above: Order Comment: Speci men Type: BLOOD SPECIMEN Ordering Facility: [facility] Address: [address] [place] [address] [place] [address] Performed By: #### 3 3762-6, 77543-2 #### [facility] CLIA [id number] [address] [place] [address] [place] Calcium [Mass/Vol] 8.8 mg/dL Normal 8.5-10.2 [facility] Comment on above: Order Comment: Speci men Type: BLOOD SPECIMEN Ordering Facility: [facility] Address: [address] [place] [address] Performed By: #### 3 3762-6, 94534-3 #### [facility] CLIA [id number] [address] [place] Chloride [Moles/Vol] 100 mmol/L Normal 97-105 [facility] Comment on above: Order Comment: Speci men Type: BLOOD SPECIMEN Ordering Facility: [facility] Address: [address] [place] [address] Performed By: #### 3 3762-6, 40543-4 #### [facility] CLIA [id number] [address] [place] CO2 [Moles/Vol] 37 mmol/L High 22-30 [facility] Comment on above: Order Comment: Speci men Type: BLOOD SPECIMEN Ordering Facility: [facility] Address: [address] [place] [address] Performed By: #### 3 3762-6, 44584-3 #### [facility] CLIA [id number] [address] [place] Creatinine [Mass/Vol] 0.74 mg/dL Normal 0.73-1.22 [facility] Comment on above: Order Comment: Speci men Type: BLOOD SPECIMEN Ordering Facility: [facility] Address: [address] [place] [address] Performed By: #### 3 3762-6, 92238-5 #### [facility] CLIA [id number] [address] [place] Creatinine and Glomerular filtration rate.predicted panel (S/P/Bld) 109 mL/min/1.73m??? Normal >=60 [facility] Comment on above: Order Comment: Speci men Type: BLOOD SPECIMEN Ordering Facility: [facility] Address: [address] [place] [address] Result Comment: Ingrid mated Glomerular Filtration Rate (eGFR) is calculated using the 2020 CKD-EPI creatinine equation. This equation utilizes serum creatinine, sex, and age as parameters. The creatinine assay has traceable calibration to isotope dilution-mass spectrometry. Refer to KDIGO guidelines for clinical interpretation. In patients with unstable renal function, e.g. those with acute kidney injury, the eGFR may not accurately reflect actual GFR. Performed By: #### 3 3762-6, 72088-9 #### [facility] CLIA [id number] [address] [place] [address] [place] Glucose [Mass/Vol] 94 mg/dL Normal 74-99 [facility] Comment on above: Order Comment: Meng blancas Type: BLOOD SPECIMEN Ordering Facility: [facility] Address: [address] [place] [address] Result Comment: The [place] Diabetes Association (ADA) provides guidance for cutoff values for fasting glucose and random glucose. The ADA defines fasting as no caloric intake for at least 8 hours. Fasting plasma glucose results between 100 to 125 mg/dL indicate increased risk for diabetes (prediabetes). Fasting plasma glucose results greater than or equal to 126 mg/dL meet the criteria for diagnosis of diabetes. In the absence of unequivocal hyperglycemia, results should be confirmed by repeat testing. In a patient with classic symptoms of hyperglycemia or hyperglycemic crisis, random plasma glucose results greater than or equal to 200 mg/dL meet the criteria for diagnosis of diabetes. Reference: Standards of Medical Care in Diabetes 2016, [place] Diabetes Association. Diabetes Care. 2016.39(Suppl 1). Performed By: #### 3 3762-6, 63674-4 #### [facility] CLIA [id number] [address] [place] [address] [place] Potassium [Moles/Vol] 4.4 mmol/L Normal 3.7-5.1 [facility] Comment on above: Order Comment: Meng blancas Type: BLOOD SPECIMEN Ordering Facility: [facility] Address: [address] [place] [address] Performed By: #### 3 3762-6, 95961-2 #### [facility] CLIA [id number] [address] [place] [address] [place] Sodium [Moles/Vol] 142 mmol/L Normal 136-144 [facility] Comment on above: Order Comment: Speci men Type: BLOOD SPECIMEN Ordering Facility: [facility] Address: [address] [place] [address] Performed By: #### 3 3762-6, 74758-0 #### [facility] CLIA [id number] [address] [place] [facility] Urea nitrogen [Mass/Vol] 14 mg/dL Normal 9-24 [facility] Comment on above: Order Comment: Speci men Type: BLOOD SPECIMEN Ordering Facility: [facility] Address: [address] [place] [address] Performed By: #### 3 3762-6, 39245-5 #### [facility] CLIA [id number] [address] STATES OF [facility] CBC W Auto Differential pane l (Bld)on 12-27-2023 Basophils (Bld) [#/Vol] 0.03 10*3/uL Normal <0.11 [facility] Comment on above: Order Comment: Speci men Type: BLOOD SPECIMEN Ordering Facility: [facility] Address: [address] [place] [address] Performed By: #### 3 3766, 21230-6 #### [facility] CLIA [id number] [address] Basophils/100 WBC (Bld) 0.3 % Normal [facility] Comment on above: Order Comment: Speci men Type: BLOOD SPECIMEN Ordering Facility: [facility] Address: [address] [place] [address] Performed By: #### 3 3762-6, 94086-6 #### [facility] CLIA [id number] [address] Differential cell count method Nom (Bld) Auto Normal [facility] Comment on above: Order Comment: Speci men Type: BLOOD SPECIMEN Ordering Facility: [facility] Address: [address] [place] [address] Performed By: #### 3 3762-6, 24693-3 #### [facility] CLIA [id number] [address] [place] Eosinophils (Bld) [#/Vol] 0.10 10*3/uL Normal <0.46 [facility] Comment on above: Order Comment: Speci men Type: BLOOD SPECIMEN Ordering Facility: [facility] Address: [address] [place] [address] Performed By: #### 3 3762-6, 57123-2 #### [facility] CLIA [id number] [address] [place] Eosinophils/100 WBC (Bld) 1.2 % Normal [facility] Comment on above: Order Comment: Speci men Type: BLOOD SPECIMEN Ordering Facility: [facility] Address: [address] [place] [address] Performed By: #### 3 3762-6, 25886-7 #### [facility] CLIA [id number] [address] [place] Erythrocyte distribution width (RBC) [Ratio] 13.8 % Normal 11.5-15.0 [facility] Comment on above: Order Comment: Speci men Type: BLOOD SPECIMEN Ordering Facility: [facility] Address: [address] [place] [address] Performed By: #### 3 3762-6, 22166-1 #### [facility] CLIA [id number] [address] [place] Hematocrit (Bld) [Volume fraction] 45.9 % Normal 39.0-51.0 [facility] Comment on above: Order Comment: Speci men Type: BLOOD SPECIMEN Ordering Facility: [facility] Address: [address] [place] [address] Performed By: #### 3 3762-6, 04054-3 #### [facility] CLIA [id number] [address] [place] Hemoglobin (Bld) [Mass/Vol] 13.7 g/dL Normal 13.0-17.0 [facility] Comment on above: Order Comment: Speci men Type: BLOOD SPECIMEN Ordering Facility: [facility] Address: [address] [place] [address] Performed By: #### 3 3762-6, 53217-8 #### [facility] CLIA [id number] [address] Immature granulocytes (Bld) [#/Vol] 0.03 10*3/uL Normal <0.10 [facility] Comment on above: Order Comment: Speci men Type: BLOOD SPECIMEN Ordering Facility: [facility] Address: [address] [place] [address] Performed By: #### 3 376-6, 37285-1 #### [facility] CLIA [id number] [address] Immature granulocytes/100 WBC (Bld) 0.3 % Normal [facility] Comment on above: Order Comment: Speci men Type: BLOOD SPECIMEN Ordering Facility: [facility] Address: [address] [place] [address] Performed By: #### 3 3766, 09756-4 #### [facility] CLIA [id number] [address] Lymphocytes (Bld) [#/Vol] 0.65 10*3/uL Low 1.00-4.00 [facility] Comment on above: Order Comment: Speci men Type: BLOOD SPECIMEN Ordering Facility: [facility] Address: [address] [place] [address] Performed By: #### 3 376-6, 18088-2 #### [facility] CLIA [id number] [address] Lymphocytes/100 WBC (Bld) 7.6 % Normal [facility] Comment on above: Order Comment: Speci men Type: BLOOD SPECIMEN Ordering Facility: [facility] Address: [address] [place] [address] Performed By: #### 3 3762-6, 78187-9 #### [facility] CLIA [id number] [address] [place] MCH (RBC) [Entitic mass] 30.3 pg Normal 26.0-34.0 [facility] Comment on above: Order Comment: Speci men Type: BLOOD SPECIMEN Ordering Facility: [facility] Address: [address] [place] [address] Performed By: #### 3 3762-6, 40170-3 #### [facility] CLIA [id number] [address] STATES OF [facility] MCHC (RBC) [Mass/Vol] 29.8 g/dL Low 30.5-36.0 [facility] Comment on above: Order Comment: Speci men Type: BLOOD SPECIMEN Ordering Facility: [facility] Address: [address] [place] [address] Performed By: #### 3 3762-6, 49064-3 #### [facility] CLIA [id number] [address] MCV (RBC) [Entitic vol] 101.5 fL High 80.0-100.0 [facility] Comment on above: Order Comment: Speci men Type: BLOOD SPECIMEN Ordering Facility: [facility] Address: [address] [place] [address] Performed By: #### 3 3762-6, 47608-1 #### [facility] CLIA [id number] [address] Monocytes (Bld) [#/Vol] 0.70 10*3/uL Normal <0.87 [facility] Comment on above: Order Comment: Speci men Type: BLOOD SPECIMEN Ordering Facility: [facility] Address: [address] [place] [address] Performed By: #### 3 3762-6, 83223-7 #### [facility] CLIA [id number] [address] Monocytes/100 WBC (Bld) 8.1 % Normal [facility] Comment on above: Order Comment: Speci men Type: BLOOD SPECIMEN Ordering Facility: [facility] Address: [address] [place] [address] Performed By: #### 3 3762-6, 45219-8 #### [facility] CLIA [id number] [address] [place] Neutrophils (Bld) [#/Vol] 7.09 10*3/uL Normal 1.45-7.50 [facility] Comment on above: Order Comment: Speci men Type: BLOOD SPECIMEN Ordering Facility: [facility] Address: [address] [place] [address] Performed By: #### 3 3762-6, 98224-7 #### [facility] CLIA [id number] [address] [place] Neutrophils/100 WBC (Bld) 82.5 % Normal [facility] Comment on above: Order Comment: Speci men Type: BLOOD SPECIMEN Ordering Facility: [facility] Address: [address] [place] [address] Performed By: #### 3 376-6, 36253-6 #### [facility] CLIA [id number] [address] Nucleated RBC (Bld) [#/Vol] 10*3/uL Normal <0.01 [facility] Comment on above: Order Comment: Speci men Type: BLOOD SPECIMEN Ordering Facility: [facility] Address: [address] [place] [address] Performed By: #### 3 3762-6, 74212-2 #### [facility] CLIA [id number] [address] [place] Nucleated RBC/100 WBC (Bld) [Ratio] 0.0 /[address] [facility] Comment on above: Order Comment: Speci men Type: BLOOD SPECIMEN Ordering Facility: [facility] Address: [address] [place] [address] Performed By: #### 3 3762-6, 17780-8 #### [facility] CLIA [id number] [address] [place] Platelet mean volume (Bld) [Entitic vol] 10.1 fL Normal 9.0-12.7 [facility] Comment on above: Order Comment: Speci men Type: BLOOD SPECIMEN Ordering Facility: [facility] Address: [address] [place] [address] Performed By: #### 3 3762-6, 27722-0 #### [facility] CLIA [id number] [address] [place] Platelets (Bld) [#/Vol] 328 10*3/uL Normal 150-400 [facility] Comment on above: Order Comment: Speci men Type: BLOOD SPECIMEN Ordering Facility: [facility] Address: [address] [place] [address] Performed By: #### 3 3762-6, 53940-2 #### [facility] CLIA [id number] [address] OF [facility] RBC (Bld) [#/Vol] 4.52 10*6/uL Normal 4.20-6.00 [facility] Comment on above: Order Comment: Speci men Type: BLOOD SPECIMEN Ordering Facility: [facility] Address: [address] [place] [address] Performed By: #### 3 3762-6, 58145-6 #### [facility] CLIA [id number] [address] OF [facility] WBC (Bld) [#/Vol] 8.60 10*3/uL Normal 3.70-11.00 [facility] Comment on above: Order Comment: Speci men Type: BLOOD SPECIMEN Ordering Facility: [facility] Address: [address] [place] [address] Performed By: #### 3 3762-6, 49379-6 #### [facility] CLIA [id number] [address] CONSULT PROGon 12-27-2023 CONSULT PROG HNO ID: [id number] Author: AYLEEN DENNEY RPh Service: Pharmacy Author Type: Pharmacist Type: Consult Progress Note Filed: 12/27/2023 09:57 Note Text: PHARMACY VANCOMYCIN DOSING NOTE Patient Name: Javier Dickson Admission Date: 12/27/2023 Date of Consult: 12/27/2023 Time of Consult: 9:57 AM Vancomycin therapy has been discontinued. Vancomycin level(s) have been discontinued: Yes. Pharmacy vancomycin dosing service will sign off. Thank you for allowing us to participate in this patient's care. Please contact pharmacy if there are questions. Ayleen Denney [facility] CONSULT PROG HNO ID: [id number] Author: SATHISH SHETH [facility] Service: Pharmacy Author Type: Pharmacist Type: Consult Progress Note Filed: 12/27/2023 05:55 Note Text: PHARMACY VANCOMYCIN DOSING NOTE Patient Name: Javier Dickson Admission Date: 12/27/2023 Date of Consult: 12/27/2023 Time of Consult: 5:52 AM Indication: Pneumonia Goal Range: 15-20 mcg/mL RECOMMENDATIONS/PLAN: Pharmacy consulted for vancomycin dosing for Javier Dickson, a 53 year old male. 1. Patient is currently ordered Vancomycin 1 gm IV once. Today is day one of therapy. 2. No vancomycin level has been drawn for this dosing regimen. 3. Will adjust vancomycin to 1 g with a dosing interval of q12h. 4. The next vancomycin level will be ordered for 12/29/23 @ 0500 prior to the 5th dose unless clinically indicated sooner. (Pharmacy will order) 5. S. aureus nasal PCR swab ordered We will follow patient renal function, vancomycin levels and doses with you during the course of therapy. Additional recommendations will appear in follow up notes. If you have any questions[place] [phone]. Age: [age] year old Allergies: ALLERGIES No Known Allergies Last 3 Encounter Wt Readings: Date: Wt: 12/27/2023 60.8 kg (134 lb) 11/13/2023 61.1 kg (134 lb 11.2 oz) 01/10/2021 72.5 kg (159 lb 13.3 oz) Last 1 Encounter Ht Readings: Date: Ht: 11/13/2023 182.9 cm (6') CrCl: 100.4 mL/min Temp (24hrs), Av.7 ?C (98 ?F), Min:36.7 ?C (98 ?F), Max:36.7 ?C (98 ?F) - Current Temp: 36.7 ?C (98 ?F) Labs BUN (mg/dL) Date Value 12/27/2023 14 11/22/2023 14 11/19/2023 15 Creatinine (mg/dL) Date Value 12/27/2023 0.74 11/22/2023 0.62 (L) 11/19/2023 0.62 (L) WBC (k/uL) Date Value 12/27/2023 8.60 11/22/2023 8.66 11/19/2023 7.58 Vancomycin Levels: No results found for: GISELLA Sheth, [facility] Normal [facility] CRP SerPl-mCncon 12-27-2023 CRP [Mass/Vol] 0.5 mg/dL Normal <0.9 [facility] Comment on above: Order Comment: Speci men Type: BLOOD SPECIMENOrdering Facility: [facility] Address: [address] [place] [address] Performed By: #### 1 [id number] ####[facility] LABORATORYCLIA [id number] [place] [address] [place] [address] CHEST W IVCONon 4 CT CHEST W IVCON * * *Final Report* * * DATE OF EXAM: Dec 27 2023 6:15AM [facility] 0539 - CT CHEST W IVCON / PROCEDURE REASON: Chest trauma, blunt * * * * Physician Interpretation * * * * EXAMINATION: CHEST CT WITH CONTRAST CLINICAL HISTORY: Shortness of breath. COPD Technique: Spiral CT acquisition of the chest from the thoracic inlet to the upper abdomen following IV contrast. MQ: CTCW_6 Contrast: 50 mL Omnipaque [address] Radiation dose: Integrated Dose-length product (DLP) for this visit = 224 mGy*cm CT Dose Reduction Employed: mAs-kVp adjusted based on patient size-age Comparison: None. RESULT: Limitations: None. Lines, tubes, and devices: None. Lung parenchyma and airways: Severe emphysema. 9.4 cm bulla at the left apex. Small right pleural effusion with subjacent compressive atelectasis. Lower neck, lymph nodes, and mediastinum: Large mediastinal lymph nodes measuring up to 1.3 cm could be reactive.. Heart, pericardium, and thoracic vessels: Unremarkable. Bones and soft tissues: No destructive bone lesion. Chest wall is unremarkable. Upper abdomen: No abnormality in the imaged upper abdomen. Lathe Puller (topogram) images: Unremarkable. IMPRESSION: Severe emphysema. 9.4 cm bulla at the left apex. Small right pleural effusion with subjacent compressive atelectasis. 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 ECG COMPLETEon 12-27-2023 ECG COMPLETE Ventricular Rate : 1 00 BPM Atrial Rate : 100 BPM P-R Interval : 132 ms QRS Duration : 80 ms Q-T Interval : 332 ms QTC Calculation(Bazett) : 428 ms Calculated P [place] : 83 degrees Calculated R [place] : -100 degrees Calculated T [place] : 63 degrees NORMAL SINUS RHYTHM RIGHT SUPERIOR AXIS DEVIATION PULMONARY DISEASE PATTERN ABNORMAL ECG WHEN COMPARED WITH ECG OF 13-NOV-2023 05:11, FUSION COMPLEXES ARE NO LONGER PRESENT Confirmed by MD SINGH ERICK ([id number]) on 01/01/2024 3:00:05 AM NAME : JAVIER DICKSON PID : [id number] : 1970 Gender : Male Race : ORD : [id number] Procedure Date : Dec 27 2023 02:58:15 Edit Date : Jan 01 2024 03:00:06 Diagnosis: NORMAL SINUS RHYTHM RIGHT SUPERIOR AXIS DEVIATION PULMONARY DISEASE PATTERN ABNORMAL ECG WHEN COMPARED WITH ECG OF 13-NOV-2023 05:11, FUSION COMPLEXES ARE NO LONGER PRESENT Confirmed by MD SINGH ERICK ([id number]) on 01/01/2024 3:00:05 AM Test Reason : Chest Pain Location : 4 : [facility] EM Overread By : MD SINGH ERICK Edited By : MD SINGH ERICK Referred By : , Acquired by : AZUL BRADEN [facility] ED NOTEon 12-27-2023 ED NOTE HNO ID: [id number] Author: AZUL BRADEN RN Service: ? Author Type: Registered Nurse Type: ED Notes Filed: 12/27/2023 05:49 Note Text: Report given to MICU RN. CT notified [facility] ED NOTE HNO ID: [id number] Author: AZUL BRADEN RN Service: ? Author Type: Registered Nurse Type: ED Notes Filed: 12/27/2023 05:13 Note Text: Pt given a eze puma and demanded that he be given a spoon to eat yogurt and more eze puma. Pt educated that yogurt is not part of the Clear Liquid diet and won't be allowed; he will have to wait until that diet can be fulfilled. He then sts "that's fine I'll just do it without the doctor knowing about it. I'm not arguing with you anymore; if I argue anymore then I'll get a new nurse." This RN stated that it is his right to requested a new RN if he wishes. Pt has not requested a new RN at this time. Pt left in a safe and comfortable position on the color television console monitor with call light within reach and continuous pulse oximetry. [facility] ED NOTE HNO ID: [id number] Author: AZUL BRADEN RN Service: ? Author Type: Registered Nurse Type: ED Notes Filed: 12/27/2023 05:05 Note Text: Pt demanding to have something to eat and drink at this time. Pt educated that unless there are orders in the system staff will not be giving him something to eat and drink. Pt sts I'm done arguing with you,; get my doctor because he (ICU) said that I could." Pt again educated that the ICU physician said that he will be putting in a Clear Diet order in because pt had said even eating chips makes my breathing hard." [facility] ED NOTE HNO ID: [id number] Author: AZUL BRADEN RN Service: ? Author Type: Registered Nurse Type: ED Notes Filed: 12/27/2023 05:08 Note Text: This RN entered pt's room to obtain a repeat troponin level and was made aware that ICU took pt off BiPAP. Pt's saturation is 98% on 5L NC. ICU didn't consult respiratory or this RN on taking the BiPAP off and nor did they put the apparatus back on. [facility] ED NOTE HNO ID: [id number] Author: AZUL BRADEN RN Service: ? Author Type: Registered Nurse Type: ED Notes Filed: 12/27/2023 02:52 Note Text: US notified [facility] ED NOTE HNO ID: [id number] Author: AZUL BRADEN RN Service: ? Author Type: Registered Nurse Type: ED Notes Filed: 12/27/2023 03:18 Note Text: Pt placed on BiPAP by respiratory. Normal [facility] ED NOTE HNO ID: [id number] Author: HOWARD FARFAN DO Service: Emergency Medicine Author Type: Physician Type: ED Notes Filed: 12/27/2023 02:20 Note Text: Attending Note I evaluated the patient and personally participated in the carlos components. I personally saw the patient and performed a substantive portion of the visit including all aspects of the medical decision making. I agree with the resident's findings and plan as documented and have discussed the case and management of the patient's care with the resident. 53-year-old male with history of COPD presenting with a 2-week history of shortness of breath and cough of green productive sputum. He reports that he was admitted to the hospital recently with RSV pneumonia. He states that they wanted to put him on home oxygen but he refused so he is not on any current home oxygen. He is also noticed some left lower extremity calf swelling with some redness to his foot. He reports the pain is worse when he ambulates. No trauma. No history of DVT or PE. No pleuritic symptoms or hemoptysis. No abdominal pain, nausea or vomiting. Denies any associated chest pain. On exam, vital signs reviewed. Patient is afebrile and nontoxic appearing. Alert and oriented ?3 answering questions appropriately. Skin is warm and dry with no rash or diaphoresis. No jaundice or scleral icterus. Neck supple no JVD. Trachea midline. Head atraumatic and normocephalic. PERRLA, EOMI. Heart slightly tachycardic but regular with no murmurs rubs or gallops.. Lungs diffusely diminished. Chest rise symmetric. Has some conversational dyspnea. No focal rales or rhonchi. Abdomen soft nontender no palpable masses or peritoneal signs. Bowel sounds present. Distal pulses intact and symmetric in all 4 extremities. Does have some left lower extremity calf tenderness and swelling. Bilateral feet are cool to the touch with delayed capillary refill but does have 2+ DP and PT pulses. Cranial nerves II through XII intact. Medical decision makin-year-old male presenting with cough and shortness of breath over the past week. Has a history of COPD. States that he feels improved with oxygen and after bronchodilator therapy and route by EMS. Diffusely diminished lung sounds. Has some slight conversational dyspnea but states he feels improved after oxygen and is able to speak in full sentences. Plan for cardiac workup, BNP, VBG, chest x-ray and left lower extremity DVT ultrasound. Will treat him symptomatically here with bronchodilators and Solu-Medrol. Anticipate admission. Workup and disposition pending. [facility] ED NOTE HNO ID: [id number] Author: AZUL BRADEN RN Service: ? Author Type: Registered Nurse Type: ED Notes Filed: 12/27/2023 01:57 Note Text: Pt placed on 6L NC from the 2L NC. Pt endorses increased ease of breathing. Pt left in a safe and comfortable position on cardiac monitoring and continuous pule oximetry. Respiratory Therapy at the bedside giving a breathing treatment. Normal [facility] ED NOTE HNO ID: [id number] Author: NENITA HUGHES RN Service: ? Author Type: Registered Nurse Type: ED Notes Filed: 12/27/2023 01:46 Note Text: Bed: 15-ED Expected date: Expected time: Means of arrival: Comments: MED [address] [facility] ED PROV NOTEon 12-27-2023 ED PROV NOTE HNO ID: [id number] Author: HOWARD FARFAN DO Service: Emergency Medicine Author Type: Resident Type: ED Provider Notes Filed: 12/30/2023 05:15 Note Text: Attestation signed by Howard Farfan DO at 12/30/2023 5:15 AM Signature: Howard Farfan DO Date: 12/30/2023 Time: 5:15 AM ED Provider Note Patient Name: Javier Dickson : 1970 SERVICE DATE: 12/27/23 History Patient presents with: Shortness of Breath: Pt arrives from home via EMS for SOB. Pt dx with RSV on New ' and has increased SOB for th past few weeks. EMS gave 1 Duoneb [employer] MECH[employer]IC. Pt sts "I always have SOB but it just got worse. When I cough up stuff it's black stuff." Pt speaking in full sentences and managing secretions. Denies home oxygen use; 87% on room air- endorses hx of COPD and asthma. Endorses swelling in DARLYN legs (L worse than R) AANDOx3. Respiratory notified upon arrival. HPI Javier Dickson is a 53 year old male with PMHx of COPD who presents to the emergency department for shortness of breath. Patient states the last week he has been experiencing worsening shortness of breath. States that he woke up today with his symptoms being worse. Endorses an associated intermittently productive cough with yellow-tinged sputum. Denies any fevers or chills. D .vteenies any chest pain or hemoptysis. States that his shortness of breath is worse when he lies flat. Endorses swelling of his lower legs for the past 2 weeks as well. States that the left though has seen the worse. Denies history of DVT/PE or malignancy. Denies any recent traumatic injury, surgery or immobilization. Denies any hemoptysis or unilateral leg swelling. Complete ROS as documented below. PAST MEDICAL HISTORY Diagnosis Date Bowel obstruction (HCC) COPD (chronic obstructive pulmonary disease) (HCC) No past surgical history on file. FAMILY HISTORY Problem Relation Age of Onset No Known Problems Mother Heart disease No Family History Social History Tobacco Use Smoking status: Every Day Packs/day: 1 Types: Cigarettes Smokeless tobacco: Not on file Substance and Sexual Activity Alcohol use: Not Currently Drug use: Not on file Sexual activity: Not on file ALLERGIES No Known Allergies Review of Systems Constitutional: Negative for chills and fever. HENT: Negative for congestion and hearing loss. Eyes: Negative for visual disturbance. Respiratory: Positive for cough, shortness of breath and wheezing. Cardiovascular: Positive for leg swelling. Negative for chest pain. Gastrointestinal: Negative for abdominal pain, nausea and vomiting. Genitourinary: Negative for decreased urine volume, difficulty urinating, dysuria, frequency and urgency. Musculoskeletal: Negative for back pain and neck pain. Skin: Negative for color change. Neurological: Negative for dizziness, seizures, syncope, weakness and headaches. Psychiatric/Behavioral : Negative for agitation, behavioral problems and confusion. The patient is not nervous/anxious. Physical Exam Vitals [12/27/23 0151] BP Pulse Temp Temp src Resp SpO2 Weight Height 116/85 (!) 98 36.7 ?C (98 ?F) Axillary 22 100 % 60.8 kg (134 lb) -- Physical Exam Vitals and nursing note reviewed. Constitutional: General: He is not in acute distress. Appearance: Normal appearance. He is not ill-appearing, toxic-appearing or diaphoretic. HENT: Head: Normocephalic and atraumatic. Right Ear: External ear normal. Left Ear: External ear normal. Nose: Nose normal. No rhinorrhea. Mouth/Throat: Mouth: Mucous membranes are moist. Pharynx: Oropharynx is clear. Eyes: Extraocular Movements: Extraocular movements intact. Conjunctiva/sclera: Conjunctivae normal. Pupils: Pupils are equal, round, and reactive to light. Cardiovascular: Rate and Rhythm: Regular rhythm. Tachycardia present. Pulses: Normal pulses. Heart sounds: Normal heart sounds. No friction rub. Pulmonary: Effort: Tachypnea and accessory muscle usage present. Breath sounds: No stridor. Examination of the right-upper field reveals decreased breath sounds and wheezing. Examination of the left-upper field reveals decreased breath sounds and wheezing. Examination of the right-middle field reveals decreased breath sounds. Examination of the left-middle field reveals decreased breath sounds. Examination of the right-lower field reveals decreased breath sounds. Examination of the left-lower field reveals decreased breath sounds. Decreased breath sounds and wheezing present. No rhonchi or rales. Abdominal: General: Abdomen is flat. There is no distension. Palpations: Abdomen is soft. Tenderness: There is no abdominal tenderness. There is no guarding or rebound. Musculoskeletal: General: No swelling, tenderness, deformity (more content not included)... Normal [facility] FLUABV+SARS-CoV-2+RSV Pnl Re sp EH+probeon 12-27-2023 FLUABV+SARS-CoV-2+RSV Pnl Resp EH+probe COVID 19 RESULT: Not detected The method used is RT-PCR or an equivalent NAAT method. Reference Range(the expected result in uninfected individuals): Not detected INFLUENZA A PCR: Not detected INFLUENZA B PCR: Not detected RSV PCR: Not detected Normal [facility] Comment on above: Performed By: #### L [id number] #### [facility] CLIA [id number] [address] [place] [address] [place] HIGH SENSITIVITY TROPONIN T (INITIAL)on 12-27-2023 Troponin T.cardiac High sensitivity method [Mass/Vol] 64 ng/L High <12 [facility] Comment on above: Order Comment: Specnaren blancas Type: BLOOD SPECIMEN Ordering Facility: [facility] Address: [address] [place] [address] Result Comment: When assessing risk for acute coronary syndromes: In patients undergoing blood draw greater than or equal to 2 hours from symptom onset, with history of very low to moderate risk and non-ischemic ECG, an initial hs-Troponin T less than 12 ng/L AND a 1 hour delta hs-Troponin T less than 3 ng/L should be considered very low risk for 30 day MACE. Performed By: #### L [id number] #### [facility] CLIA [id number] [address] [place] [address] [place] HIGH SENSITIVITY TROPONIN T (SECOND)on 12-27-2023 Troponin T.cardiac High sensitivity method [Mass/Vol] 58 ng/L High <12 [facility] Comment on above: Order Comment: Meng blancas Type: BLOOD SPECIMEN Ordering Facility: [facility] Address: [address] [place] [address] Result Comment: When assessing risk for acute coronary syndromes: In patients undergoing blood draw greater than or equal to 2 hours from symptom onset, with history of very low to moderate risk and non-ischemic ECG, an initial hs-Troponin T less than 12 ng/L AND a 1 hour delta hs-Troponin T less than 3 ng/L should be considered very low risk for 30 day MACE. Performed By: #### L [id number] #### [facility] CLIA [id number] [address] HIGH SENSITIVITY TROPONIN T (THIRD) 3 HRS AFTER INITIALon 12-27-2023 Troponin T.cardiac High sensitivity method [Mass/Vol] 55 ng/L High <12 [facility] Comment on above: Order Comment: Speci men Type: BLOOD SPECIMEN Ordering Facility: [facility] Address: [address] [place] [address] Result Comment: When assessing risk for acute coronary syndromes: In patients undergoing blood draw greater than or equal to 2 hours from symptom onset, with history of very low to moderate risk and non-ischemic ECG, an initial hs-Troponin T less than 12 ng/L AND a 1 hour delta hs-Troponin T less than 3 ng/L should be considered very low risk for 30 day MACE. Performed By: #### 3 [id number], [id number] #### [facility] CLIA [id number] [address] HISTORY PHYSICALon HISTORY PHYSICAL HNO ID: [id number] Author: NAYE GONZALEZ MD Service: Critical Care Author Type: Physician Type: H&P Filed: 12/27/2023 04:55 Note Text: PULMONARY/CRITICAL CARE INTENSIVE MEDICAL/SURGICAL CARE UNIT PROGRESS NOTE Patient Name: Javier Dickson Account #: Data Unavailable Admission Date: 12/27/2023 Date of Evaluation: 12/27/2023 Time of Evaluation: 4:45 AM SUBJECTIVE Patient seen and examined at bedside SOB, been progressing over the last few days gradually No chest pain, no nvsweating No fever, no chills, no hemoptysis, no purulent phlegm States been using his stiolto and advair Was supposed to get DC on home O2, however does not have it VITALS 12/27/23 0203 12/27/23 0230 12/27/23 0250 12/27/23 0430 BP: 119/82 Pulse: (!) 106 (!) 108 (!) 98 (!) 95 Resp: 20 (!) 25 (!) 25 22 Temp: TempSrc: SpO2: 99% 100% 97% (!) 91% Weight: PHYSICAL EXAM Gen: Awake. Following commands HEENT: Normocephalic, Atraumatic, Pupils Equally Reactive to light and accomodation Neck: Supple, no rigidity, trachea is midline, no Lymphadenopathy Lungs: decreased to Auscultation bilaterally , No wheezing, rhonchi or rales , increased AP diameter Heart: distant and muffled S1 and S2, no murmurs Abd: Soft, Nontender and nondistended Ext: No edema, +erythema ext Neuro: able to follow commands 24 hour Intake AND Output: No intake or output data in the 24 hours ending 12/27/23 0445 INPATIENT MEDICATIONS : Current Facility-Administered Medications Medication Dose Route Frequency furosemide 20 mg injection (LASIX) 20 mg INTRAVENOUS ONCE NaCl 0.9% iv flush bag 20 mL INTRAVENOUS PRN cefTRIAXone iv piggyback 1 g in dextrose (iso-osmotic) 50 mL (ROCEPHIN) 1 g INTRAVENOUS ONCE azithromycin 500 mg in D5W 250 mL Vial-Bag (ZITHROMAX) 500 mg INTRAVENOUS ONCE HOME MEDICATIONS: albuterol HFA (PROVENTIL HFA, VENTOLIN HFA) 90 mcg/actuation inhalerInhale 2 Puffs as instructed every 4 hours as needed for wheezing/shortness of breath.Disp: 6.7 gRfl: 0 fluticasone-salmeterol (ADVAIR DISKUS) 100-50 mcg/dose inhalerInhale 1 Puff as instructed two times a day.Disp: 60 EachRfl: 0 tiotropium bromide (SPIRIVA RESPIMAT) 2.5 mcg/actuation inhalerInhale 2 Puffs as instructed once daily.Disp: 4 gRfl: 0 LABORATORY TESTS: CBC: Recent Labs 12/27/23 0211 WBC 8.60 HB 13.7 HCT 45.9 PLT 328 MCV 101.5* RDWCV 13.8 NEUTP 82.5 ABSNEUT 7.09 LYMPHP 7.6 MONOP 8.1 EODINP 1.2 COAG: No results for input(s): "APTT", "INR" in the last 168 hours. BMP: Recent Labs 12/27/23210 GLUC 94 NA 142 K 4.4 CHLOR 100 CO2 37* ANION 5* BUN 14 CREAT 0.74 CHEM: Recent Labs 12/27/23210 CA 8.8 HEPATIC: No results for input(s): "ALKPHOS", "ALT", "AST", "TBILI", "LIPASE" in the last 168 hours. URINALYSIS:No results for input(s): "PH", "SPGR", "UGLUC", "UBILI", "UKET", "UHB", "UPROT", "UROBIL", "UWBC", "SSA" in the last 168 hours. Invalid input(s): NITR CARDIAC: Recent Labs 12/27/23210 PBNP 3,703* PROBLEMS: -Acute on chronic hypercapnic hypoxic respiratory failure -Acute COPD exacerbation -Community acquired pneumonia, high risk for MRSA -right lung infiltrate, with effusion -Chronic compensated heart failure with preserved EF -Type 2 [place], no chest pain -polysubstance abuse Active Hospital Problems Diagnosis Acute hypercapnic respiratory failure (HCC) PLAN: Neuro: monitor for delirium and pain. Quit alcohol consumption >3 years ago. UDS 11/2023 cocaine/amphetamine, and cannabinoids. Smoking cessation counseling CV: given one dose lasix. Currently appears to be euvolemic. Monitor off lasix. Trend troponins, no chest pain Resp: Bipap PRN and HS, 2 hours on then repeat VBG showed partial improvement >drop in PCO2 of 7. Patient insisting on diet, will start clears, for 2 hours then replace bipap for 2 hours, if tolerated may advance diet. Steroids for COPD, Duoneb Q 4hr. ABX for suspected pneumonia. SPO2 88-94% ID: [id number] Cx pending, get a chest CT scan, rule out complicated effusion, obstructive pneumonia, rule out PE. Vanco and rocephin, check legionella if +ve then start levaquin or azithro. GI No concern, clears for now while off bipap if tolerated. /electrolytes monitor BMP Hematology:monitor CBC. Concern about him as he is high risk for oncologic disease, without stable access for follow up, get a chest ct MSK: pressure ulcer prevention. Doppler negative for DVT and thrombophlebitis. Endo: monitor fasting glucose ICU prophylaxis: DVT prophylaxis with lovenox. GI prophylaxis with not indicated There could be portions of this note have been copied forward from the previous day's documentation. Patient/Family/Staff Updated This patient has a high probability of sudden, clinically significant deterioration, which requires the highest level of physician preparedness to intervene urgently. I managed/supervised life or organ s (more content not included)... Normal [facility] HISTORY PHYSICAL HNO ID: [id number] Author: NAYE GONZALEZ MD Service: Critical Care Author Type: Physician Type: H&P Filed: 12/27/2023 06:40 Note Text: [facility] HAND[facility] PATIENT NAME: Javier Dickson ADMITTED FOR: Acute on chronic hypercapnic hypoxic respiratory failure DATE: 12/27/2023 Subjective HPI Mr. Javier Dickson is a 53 year old male with PMH of: -COPD no oxygen baseline Patient presented to [facility] with a chief complaint of SOB, cough with green sputum for past 2 weeks and lower extremity swelling Recent hospital history with similar presentation, complicated by CAP. ED course BMP- Bicarb 37 CBC- unremarkable proBNP- 3k Covid/influenza-pendin g VBG-co2 >98 Troponin -64 EKG NSR Imaging CXR- Pulmonary edema with R small pleural effusion and bilateral infiltrates more prominent on the right. DVT ultrasound-negative Intervention Duoneb q20 mins Solumedrol once IV Lasix 20mg Upon bedside assessment, patient endorses SOB with increase work of breathing for the past 2 weeks however with seldom cough and no sputum production. Further, patient endorses bilateral lower extremity swelling. He denies fever, chills, wheezing, hemoptysis, chest pain. Patient quit alcohol for more than 3 years however positive urine toxicology for amphetamine, cocaine and cannabis. Patient expressed to be Full Code. Transferred to MICU for further assessment of acute hypoxic hypercapnic respiratory failure 2/2 COPD, less like CHF and PE. Review of Systems Constitutional: Negative for chills and fever. HENT: Negative for ear pain, facial swelling and postnasal drip. Respiratory: Positive for cough and shortness of breath. Negative for choking, chest tightness and wheezing. Cardiovascular: Positive for leg swelling. Negative for chest pain and palpitations. Gastrointestinal: Negative for diarrhea, nausea and vomiting. Objective OBJECTIVE BP 119/82 Pulse (!) 98 Temp 36.7 ?C (98 ?F) (Axillary) Resp (!) 25 Wt 60.8 kg (134 lb) SpO2 97% BMI 18.17 kg/m? Temp (24hrs), Av.7 ?C (98 ?F), Min:36.7 ?C (98 ?F), Max:36.7 ?C (98 ?F) Body mass index is 18.17 kg/m?., Hemoglobin A1C (%) Date Value 01/10/2021 6.1 No intake or output data in the 24 hours ending 12/27/23 0336 Physical Exam Constitutional: General: He is in acute distress. HENT: Head: Normocephalic and atraumatic. Cardiovascular: Rate and Rhythm: Normal rate and regular rhythm. Pulmonary: Effort: Respiratory distress (Diminished breath sounds bilateraly) present. Chest: Chest wall: No tenderness. Musculoskeletal: General: Swelling present. Skin: General: Skin is warm. Neurological: Mental Status: He is alert and oriented to person, place, and time. MEDICATIONS: IV infusions: Scheduled medications:furosemide , 20 mg, ONCE cefTRIAXone, 1 g, ONCE azithromycin, 500 mg, ONCE PRN:NaCl 0.9%, 20 mL, PRN Assessment AND Plan ASSESSMENT Mr. Javier Dickson is a 53 year old male with PMH of COPD presents to [facility] ED for SOB and cough. MICU consulted for acute hypoxic hypercapnic respiratory failure 2/2 COPD Acute hypoxic hypercapnic respiratory failure COPD Suspect CAP with a high risk of MRSA Polysubstance abuse PLAN #Acute hypoxic hypercapnic respiratory failure 2/2 COPD -CAP with a high risk for MRSA (Less likely HF exacerbation due to recent ECHO and clinical sx) Plan -Admit to MICU -Continue Bipap. Will give thin liquids now.Then resume Bipap after two hours and read VBG. -Initiate Duonebs and IV steroids Pending -CRP -Blood cultures -Sputum culture -Procalcitonin -Urine Strep/Legionella -MRSA nares -VBG -CT Chest Admit to MICU Neuro: Alert CV: maintain MAP >65. Monitor Troponin. Avoid hypovolemia. Recent Echo 11/14/2023 EF 68. Discontinue lasix Resp:Bipap maintain to goal SPO2 88-92%. Duonebs and IV steroids. Ordered CT chest for further assessment of pleural effusion, PNA and nodules and to further rule out PE. ID: Ceftriaxone and Vancomycin due recent hospitalization and recent MRSA nares positive. Pending CRP, blood cultures, sputum cultures. Urine strep, legionella and MRSA nares. Pro calcitonin and CRP for de-escalations. GI: Thin liquid diet then after 2 hours can resume Bipap with NPO /electrolytes: Monitor BMP as needed Hematology:Concern for risk of oncologic process. Chest CT for further details MSK: PT/OT when needed. DVT ultrasound negative Endo: n/a ICU prophylaxis: DVT prophylaxis Lovenox GI prophylaxis not indicated Plan of care discussed with: Provider, RN, Patient Lines, Drains, and Airways Line Duration Peripheral 12/27/23 0151 [facility] Short Left Forearm 18 Gauge <1 day SIGNATURE: Evelyn Orozco MD PATIENT NAME: Javier Dickson DATE: December 27, 2023 TIME: 3:36 AM PAGER#: Attending Note I evaluated the patient and personally participated in the carlos components. I agree with the re (more content not included)... Normal [facility] Legionella Ag Ur Qlon 2023 Legionella sp Ag Ql (U) Negative Normal Negative A [facility] Comment on above: Order Comment: Meng blancas Type: BLOOD SPECIMEN Ordering Facility: [facility] Address: [address] [place], [place] [id number] Result Comment: Pres umptive negative for L. pneumophila serogroup 1 antigen in urine, suggesting no recent or current infection. Infection due to Legionella cannot be ruled out since other serogroups and species may cause disease, antigen may not be present in urine in early infection, and the level of antigen present in the urine may be below the detection limit of the test. Performed By: #### L [id number] #### [facility] CLIA [id number] 1 [place] [address] [place] Magnesium SerPl-mCncon 12-27 Magnesium [Mass/Vol] 1.9 mg/dL Normal 1.7-2.3 [facility] Comment on above: Order Comment: Meng blancas Type: BLOOD SPECIMENOrdering Facility: [facility] Address: [address] [place] [address] [place] [address] Performed By: #### 1 9123-9, 99635-5, 2777-1 ####[facility] [id number] [address] NT-proBNP [facility] 12-27 Natriuretic peptide.B prohormone N-Terminal [Mass/Vol] 3703 pg/mL High <125 [facility] Comment on above: Order Comment: Speci men Type: BLOOD SPECIMEN Ordering Facility: [facility] Address: [address] [place] [address] Performed By: #### 3 3762-6, 02586-1 #### [facility] CLIA [id number] [address] NUTRITIONon 12-27-2023 NUTRITION HNO ID: [id number] Author: SCOTTY SIMON RD Service: Nutrition Therapy Author Type: Registered Dietitian Type: Nutrition Filed: 12/27/2023 13:09 Note Text: INITIAL ASSESSMENT SERVICE DATE: 12/27/2023 SERVICE TIME: 1030 Nutrition Assessment: Recommended Malnutrition Diagnosis: Severe Protein-Calorie Malnutrition In the context of: Acute Illness or Injury Based on: Subcutaneous Fat Loss, Muscle Loss Nutrition Diagnosis: Problem: Increased nutrient needs Related to: Chronic illness As evidenced by: Medical condition Estimated kilocalorie needs: 1860-2170kcals Calorie Calculation Method: 30-35 kcals/kg Estimated protein needs (grams): 74-93gms Grams protein determined by: 1.2 - 1.5 g/kg Care Plan: Continue current diet Supplements: Boost [facility] Monitor and Evaluation: Meet greater than 75% of estimated needs, Monitor bowel function, Monitor fluid/electrolyte balance, Monitor labs, I/Os, vital signs, weight HPI: 53 yr old male with h/o COPD and recent RSV infection admitted with worsening SOB. Intake History: Nutrition Intake Prior to Admission: Unable to determine (currently a very poor historian) Seems to have a good appetite, but doubt his caloric intake is adequate to prevent further wt loss. Diet Orders (From admission, onward) Start Ordered 12/27/23 0515 DIET LIQUID START NOW Question: Liquid Diet Answer: CLEAR LIQUID 12/27/23 0501 Anthropometrics: Height: 182.9 cm (6') Weight: 62 kg (136 lb 11 oz) Dosing Weight: 62 kg (136 lb 11 oz) Usual Weight: 77.1 kg (170 lb) 6 months ago Usual Weight Obtained From: Patient Body mass index is 18.54 kg/m?. Weight change percentage over time: unable to confirm his stated loss Weight Change: Unable to determine Physical Exam: Subcutaneous fat loss: Moderate Muscle loss: Moderate Potential micronutrient deficiency: No deficiency identified Functional Status: Not related to malnutrition status Potential Signs of Inflammation: Imaging studies, Chronic condition, Tachycardia COPD MNT Billing: $ Initial Assessment: 1-15 minutes SIGNATURE: Scotty Simon RD PATIENT NAME: Javier Dickson DATE: December 27, 2023 TIME: 7:[address] [facility] Phosphate SerPl-mCncon 12-27 Phosphate [Mass/Vol] 3.4 mg/dL Normal 2.7-4.8 [facility] Comment on above: Order Comment: Speci yonny Type: BLOOD SPECIMENOrdering Facility: [facility] Address: [address] [place] [address] Performed By: #### 1 9123-9, 25822-3, 2777-1 ####[facility]IA [id number] [place] [address] [place] Procalcitonin SerPl-mCncon 0 12-27-2023 Procalcitonin [Mass/Vol] 0.07 ng/mL Normal <0.09 [facility] Comment on above: Order Comment: Dennisi yonny Type: BLOOD SPECIMENOrdering Facility: [facility] Address: [address] [place] [address] Result Comment: For a guided interpretation of test results, please visit the Change in Procalcitonin Calculator, [email or web address]. Performed By: #### 1 9123-9, 01115-9, 2777-1 ####[facility]IA [id number] [place] [address] [place] STAPH AUREUS PCRon 4 S. aureus and MRSA panel EH+probe (Nose) Abnormal Negative [facility] Comment on above: Order Comment: Speci men Type: BLOOD SPECIMEN Ordering Facility: [facility] Address: [facility] [place] [address] Result Comment: Posi tive for Staphylococcus aureus by PCR. Positive for MRSA by PCR Performed By: #### 3 3762-6, 32351-6 #### [facility] CLIA [id number] [address] [place] STREPTOCOCCUS PNEUMONIAE AGo n 12-27-2023 STREPTOCOCCUS PNEUMONIAE AG STREP PNEUMO AG RESULT: Negative for Streptococcus pneumoniae antigen. Presumptive negative for pneumococcal pneumonia, suggesting no current or recent pneumococcal infection. Infection due to S.pneumoniae cannot be ruled out since the antigen present in the sample may be below the detection limit of the test. Normal [facility] Comment on above: Performed By: #### S PNAG ####[facility]ORYCLIA [id number] [place] [address] [place] US DVT LOWER LTon 12-27-2023 US DVT LOWER LT * * *Final Report* * * DATE OF EXAM: Dec 27 2023 3:11AM [facility] 1006 - DVT LOWER LT / PROCEDURE REASON: Leg deep vein thrombosis (DVT), new symptoms * * * * Physician Interpretation * * * * EXAMINATION: LEFT LOWER EXTREMITY DEEP VENOUS ULTRASOUND WITH DOPPLER IMAGING CLINICAL HISTORY: Leg swelling. TECHNIQUE: Grayscale with compression maneuvers, color Doppler and spectral Doppler imaging of the left proximal deep veins was performed. Grayscale with compression maneuvers of the peroneal and posterior tibial veins was performed. The left great and small saphenous veins were evaluated at their insertion to the deep system. The contralateral common femoral vein was imaged for comparison. Images were obtained and stored in a permanent archive. MQ: USLEL_1 COMPARISON: None RESULT: LEFT LOWER EXTREMITY PROXIMAL DEEP VEINS Distal External Iliac, Common Femoral and proximal Profunda Veins: Compression: Normal Doppler: Normal, spontaneous respirophasic flow. Normal response to augmentation. Femoral vein: Compression: Normal Doppler: Normal, spontaneous flow. Normal response to augmentation. Popliteal vein: Compression: Normal Doppler: Normal, spontaneous flow. Normal response to augmentation. CALF DEEP VEINS Peroneal veins: Normal compression. Posterior tibial veins: Normal compression. Gastrocnemius and Soleal veins: Not imaged. SUPERFICIAL VEINS Great saphenous: Patent and compressible at insertion into common femoral vein; not otherwise assessed. Small Saphenous: Patent and compressible in the proximal calf, not otherwise assessed. IMPRESSION: Negative study for proximal DVT in the left lower extremity. Negative calf DVT in the left lower extremity. Negative study for superficial thrombophlebitis in the imaged segments of the left lower extremity. Probate Paralegal: PSCB Transcribe Date/Time: Dec 27 2023 3:19A Dictated by : MARY PRASAD MD This examination was interpreted and the report reviewed and electronically signed by: MARY PRASAD MD on Dec 27 2023 3:23AM EST [id number] Normal [facility] Urinalysis complete panel (U )on 12-27-2023 Bilirubin Ql (U) Negative Normal Negative [facility] Comment on above: Order Comment: Speci men Type: BLOOD SPECIMEN Ordering Facility: [facility] Address: [address] [place] [address] Performed By: #### 3 3762-6, 07486-4 #### [facility] CLIA [id number] [address] [place] Clarity (Unsp spec) Clear Normal Clear [facility] Comment on above: Order Comment: Speci men Type: BLOOD SPECIMEN Ordering Facility: [facility] Address: [address] [place] [address] Performed By: #### 3 3762-6, 55574-5 #### [facility] CLIA [id number] [address] [place] Color (U) Colorless Normal yellow [facility] Comment on above: Order Comment: Speci men Type: BLOOD SPECIMEN Ordering Facility: [facility] Address: [address] [place] [address] Performed By: #### 3 3762-6, 78761-9 #### [facility] CLIA [id number] [address] [place] [address] [place] Glucose Test strip (U) [Mass/Vol] Negative Normal Trace, Negative [facility] Comment on above: Order Comment: Speci men Type: BLOOD SPECIMEN Ordering Facility: [facility] Address: [address] [place] [address] Performed By: #### 3 3762-6, 12446-9 #### [facility] CLIA [id number] [address] [place] Hemoglobin Ql (U) Negative Normal Negative, Trace [facility] Comment on above: Order Comment: Speci men Type: BLOOD SPECIMEN Ordering Facility: [facility] Address: [address] [place] [address] Performed By: #### 3 3762-6, 10051-2 #### [facility] CLIA [id number] [address] Ketones Ql (U) Negative Normal Negative, Trace [facility] Comment on above: Order Comment: Speci men Type: BLOOD SPECIMEN Ordering Facility: [facility] Address: [facility] [place] [address] Performed By: #### 3 3762-6, 74634-1 #### [facility] CLIA [id number] [address] [place] Leukocyte esterase Test strip Ql (U) Negative Normal Negative, 25 Mahin/uL [facility] Comment on above: Order Comment: Speci men Type: BLOOD SPECIMEN Ordering Facility: [facility] Address: [address] [place] [address] Performed By: #### 3 3762-6, 43574-1 #### [facility] CLIA [id number] [address] [place] Nitrite Ql (U) Negative Normal Negative [facility] Comment on above: Order Comment: Speci men Type: BLOOD SPECIMEN Ordering Facility: [facility] Address: [facility] [place] [address] Performed By: #### 3 3762-6, 73056-9 #### [facility] CLIA [id number] [address] [place] pH (U) 5.0 [pH] Normal 5.0-8.0 [facility] Comment on above: Order Comment: Speci men Type: BLOOD SPECIMEN Ordering Facility: [facility] Address: [facility] [place] [address] Performed By: #### 3 3762-6, 34087-9 #### [facility] CLIA [id number] [address] Protein (U) [Mass/Vol] Negative Normal Trace , Negative [facility] Comment on above: Order Comment: Speci men Type: BLOOD SPECIMEN Ordering Facility: [facility] Address: [address] [place] [address] Performed By: #### 3 3762-6, 26991-9 #### [facility] CLIA [id number] [address] RBC LM.HPF (Urine sed) [#/Area] 0-3 /HPF Normal 0-3 /HPF [facility]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 Functional Status: Unable to assess Potential Signs of Inflammation: Chronic condition, Microbiologic cultures MNT Billing: $ Initial Assessment: 1-15 minutes SIGNATURE: Elizabeth Little RD PATIENT NAME: Javier Dickson DATE: November 22, 2023 TIME: 10:[address] [facility] NURSING PROGon 11-21-2023 NURSING PROG HNO ID: [id number] Author: JACKIE JONES, RN Service: Nursing Author Type: Registered Nurse Type: Nursing Progress Note Filed: 11/21/2023 13:23 Note Text: Other: SpO2 room air at rest 92% SpO2 room air with exertion 87% SpO2 90% on 3L NC with exertion Jackie jones rn Normal [facility] NUTRITIONon 11-21-2023 NUTRITION HNO ID: [id number] Author: REBECCA ODONNELL DTR Service: Nutrition Therapy Author Type: Commercial Electrician Type: Nutrition Filed: 11/21/2023 14:14 Note Text: NUTRITION THERAPY SHANK SKINNER NOTE SERVICE DATE: 11/21/2023 SERVICE TIME: 1110 Visit Type: Length of Stay Patient reports decreasing appetite since admission and unintentional weight loss over the past 6 months. Noted fat/muscle loss. Discussed patient with Registered Dietitian. Will refer to RD (Registered Dietitian) for further nutrition interventions. Plan of Care: Supplements: Boost [facility] (twice per day) Follow-Up: Refer to Registered Dietitian Nursing Admission Assessment Malnutrition Score: 0 Nutrition Intake: Diet Orders (From admission, onward) Start Ordered 11/14/23 0715 DIET REGULAR START NOW 11/14/23 0700 Average intake over: Unable to determine Appetite: Fair (Po intake 50-100% when documented, normal appetite prior to this admission) GI Symptoms: None Anthropometrics: Body mass index is 18.27 kg/m?. Usual Weight: 78 kg (172 lb) (weight fluctuated between 170-175# at about 6 months ago) Weight Change: Increased (represents bed scale) Food Preferences: agreeable to consume snacks and nutrition supplements MNT Billing: $ Routine Care : 1-15 minutes SIGNATURE: Rebecca Odonnell DTR PATIENT NAME: Javier Dickson DATE: November 21, 2023 TIME: 2:[address] [facility] NURSING PROGon 11-20-2023 NURSING PROG HNO ID: [id number] Author: JACKIE JONES, RN Service: Nursing Author Type: Registered Nurse Type: Nursing Progress Note Filed: 11/20/2023 10:45 Note Text: Other: SpO2 room air at rest 92% SpO2 room air with exertion 86% SpO2 92% on 4L NC with exertion Jackie jones rn Normal [facility] ALLIED HEALTHon 11-19-2023 ALLIED HEALTH HNO ID: [id number] Author: MEDARDO PENALOZA RT(R) Service: ? Author Type: Technologist Type: Allied Health Filed: 11/19/2023 12:30 Note Text: Radiology Service Progress Note PATIENT NAME: Javier Dickson DATE OF SERVICE: November 19, 2023 TIME: 12:30 PM PATIENT IDENTITY VERIFICATION COMPLETED USING TWO (2) IDENTIFIERS: Name and Date of confirmed by patient verbally and Name and Date of confirmed by identification band. FALL SCREENING: Has the patient had 2 falls in the last year or 1 fall with injury or currently using an Ambulatory Assistive Device (Walker, Cane, Wheelchair, Crutches, etc.)? Inpatient: Screened on floor PATIENT GENDER DATA: Male PATIENT RELEVANT IMPLANT DATA REVIEWED: Yes RADIOLOGY DEPARTMENT: CT; Exam(s) Completed: Brain PERIPHERAL IV DATA: Inpatient: see LDA documentation SIGNED BY: RT Anders(R) November 19, 2023 12:[address] [facility] Basic metabolic 2000 panelon 11-19-2023 Anion gap [Moles/Vol] 7 mmol/L Low 9-18 [facility] Comment on above: Order Comment: Speci men Type: BLOOD SPECIMEN Ordering Facility: [facility] Address: [address] [place] [address] Performed By: #### 3 3762-6, 87353-9 #### [facility] CLIA [id number] [address] [place] Calcium [Mass/Vol] 8.9 mg/dL Normal 8.5-10.2 [facility] Comment on above: Order Comment: Speci men Type: BLOOD SPECIMEN Ordering Facility: [facility] Address: [address] [place] [address] Performed By: #### 3 3762-6, 70562-4 #### [facility] CLIA [id number] [address] [place] [address] [place] Chloride [Moles/Vol] 94 mmol/L Low 97-105 [facility] Comment on above: Order Comment: Speci men Type: BLOOD SPECIMEN Ordering Facility: [facility] Address: [address] [place] [address] Performed By: #### 3 3762-6, 88006-8 #### [facility] CLIA [id number] [address] STATES OF [facility] CO2 [Moles/Vol] 35 mmol/L High 22-30 [facility] Comment on above: Order Comment: Speci men Type: BLOOD SPECIMEN [facility] [place] Address: [address] [place] [address] Performed By: #### 3 3762-6, 41625-5 #### [facility] CLIA [id number] [address] [place] Creatinine [Mass/Vol] 0.62 mg/dL Low 0.73-1.22 [facility] Comment on above: Order Comment: Speci men Type: BLOOD SPECIMEN Ordering Facility: [facility] Address: [address] [place] [address] Performed By: #### 3 3762-6, 85835-6 #### [facility] CLIA [id number] [address] [place] Creatinine and Glomerular filtration rate.predicted panel (S/P/Bld) 115 mL/min/1.73m??? Normal >=60 [facility] Comment on above: Order Comment: Meng blancas Type: BLOOD SPECIMEN Ordering Facility: [facility] Address: [address] [place] [address] Result Comment: Ingrid mated Glomerular Filtration Rate (eGFR) is calculated using the 2020 CKD-EPI creatinine equation. This equation utilizes serum creatinine, sex, and age as parameters. The creatinine assay has traceable calibration to isotope dilution-mass spectrometry. Refer to KDIGO guidelines for clinical interpretation. In patients with unstable renal function, e.g. those with acute kidney injury, the eGFR may not accurately reflect actual GFR. Performed By: #### 3 3762-6, 35344-5 #### [facility] CLIA [id number] 1 [place] [address] [place] Glucose [Mass/Vol] 92 mg/dL Normal 74-99 [facility] Comment on above: Order Comment: Meng blancas Type: BLOOD SPECIMEN Ordering Facility: [facility] Address: [address] [place] [address] Result Comment: The [place] Diabetes Association (ADA) provides guidance for cutoff values for fasting glucose and random glucose. The ADA defines fasting as no caloric intake for at least 8 hours. Fasting plasma glucose results between 100 to 125 mg/dL indicate increased risk for diabetes (prediabetes). Fasting plasma glucose results greater than or equal to 126 mg/dL meet the criteria for diagnosis of diabetes. In the absence of unequivocal hyperglycemia, results should be confirmed by repeat testing. In a patient with classic symptoms of hyperglycemia or hyperglycemic crisis, random plasma glucose results greater than or equal to 200 mg/dL meet the criteria for diagnosis of diabetes. Reference: Standards of Medical Care in Diabetes 2016, [place] Diabetes Association. Diabetes Care. 2016.39(Suppl 1). Performed By: #### 3 3762-6, 53051-6 #### [facility] CLIA [id number] 1 [place] [address] [place] Potassium [Moles/Vol] 4.4 mmol/L Normal 3.7-5.1 [facility] Comment on above: Order Comment: Meng blancas Type: BLOOD SPECIMEN Ordering Facility: [facility] Address: [address] [place] [address] Performed By: #### 3 3762-6, 36133-7 #### [facility] CLIA [id number] [address] Sodium [Moles/Vol] 136 mmol/L Normal 136-144 [facility] Comment on above: Order Comment: Speci men Type: BLOOD SPECIMEN Ordering Facility: [facility] Address: [address] [place] [address] Performed By: #### 3 3762-6, 50810-6 #### [facility] CLIA [id number] [address] [place] Urea nitrogen [Mass/Vol] 15 mg/dL Normal 9-24 [facility] Comment on above: Order Comment: Speci men Type: BLOOD SPECIMEN Ordering Facility: [facility] Address: [address] [place] [address] Performed By: #### 3 3762-6, 96493-5 #### [facility] CLIA [id number] [address] CBC panel Auto (Bld)on 11-19 Erythrocyte distribution width (RBC) [Ratio] 12.5 % Normal 11.5-15.0 [facility] Comment on above: Order Comment: Speci men Type: BLOOD SPECIMEN Ordering Facility: [facility] Address: [address] [place] [address] Performed By: #### 3 3762-6, 64857-0 #### [facility] CLIA [id number] [address] Hematocrit (Bld) [Volume fraction] 40.5 % Normal 39.0-51.0 [facility] Comment on above: Order Comment: Speci men Type: BLOOD SPECIMEN Ordering Facility: [facility] Address: [address] [place] [address] Performed By: #### 3 3762-6, 61567-2 #### [facility] CLIA [id number] [address] Hemoglobin (Bld) [Mass/Vol] 13.0 g/dL Normal 13.0-17.0 [facility] Comment on above: Order Comment: Speci men Type: BLOOD SPECIMEN Ordering Facility: [facility] Address: [address] [place] [address] Performed By: #### 3 3762-6, 01319-5 #### [facility] CLIA [id number] [address] MCH (RBC) [Entitic mass] 30.3 pg Normal 26.0-34.0 [facility] Comment on above: Order Comment: Speci men Type: BLOOD SPECIMEN Ordering Facility: [facility] Address: [address] [place] [address] Performed By: #### 3 3762-6, 76863-0 #### [facility] CLIA [id number] [address] OF [facility] MCHC (RBC) [Mass/Vol] 32.1 g/dL Normal 30.5-36.0 [facility] Comment on above: Order Comment: Speci men Type: BLOOD SPECIMEN Ordering Facility: [facility] Address: [address] [place] [address] Performed By: #### 3 3762-6, 70152-5 #### [facility] CLIA [id number] [address] MCV (RBC) [Entitic vol] 94.4 fL Normal 80.0-100.0 [facility] Comment on above: Order Comment: Speci men Type: BLOOD SPECIMEN Ordering Facility: [facility] Address: [address] [place] [address] Performed By: #### 3 3762-6, 50209-9 #### [facility] CLIA [id number] [address] Nucleated RBC (Bld) [#/Vol] 10*3/uL Normal <0.01 [facility] Comment on above: Order Comment: Speci men Type: BLOOD SPECIMEN Ordering Facility: [facility] Address: [address] [place] [address] Performed By: #### 3 3762-6, 27006-7 #### [facility] CLIA [id number] [address] STATES [facility] Platelet mean volume (Bld) [Entitic vol] 9.9 fL Normal 9.0-12.7 [facility] Comment on above: Order Comment: Speci men Type: BLOOD SPECIMEN Ordering Facility: [facility] Address: [address] [place] [address] Performed By: #### 3 3762-6, 36614-0 #### [facility] CLIA [id number] [address] [place] Platelets (Bld) [#/Vol] 289 10*3/uL Normal 150-400 [facility] Comment on above: Order Comment: Speci men Type: BLOOD SPECIMEN Ordering Facility: [facility] Address: [address] [place] [address] Performed By: #### 3 3762-6, 29080-6 #### [facility] CLIA [id number] [address] STATES OF [facility] RBC (Bld) [#/Vol] 4.29 10*6/uL Normal 4.20-6.00 [facility] Comment on above: Order Comment: Speci men Type: BLOOD SPECIMEN Ordering Facility: [facility] Address: [address] [place] [address] Performed By: #### 3 3762-6, 60710-2 #### [facility] CLIA [id number] [address] [place] WBC (Bld) [#/Vol] 7.58 10*3/uL Normal 3.70-11.00 [facility] Comment on above: Order Comment: Speci men Type: BLOOD SPECIMEN Ordering Facility: [facility] Address: [address] [place] [address] Performed By: #### 3 3762-6, 84516-3 #### [facility] CLIA [id number] [address] [place] CT BRAIN WO IVCONon 11-19-[address] BRAIN WO IVCON * * *Final Report* * * DATE OF EXAM: Nov 19 2023 12:33PM [facility] 0504 - CT BRAIN WO IVCON / PROCEDURE REASON: Vision loss, monocular * * * * Physician Interpretation * * * * EXAMINATION: CT BRAIN WO IVCON HISTORY: Vision loss, monocular TECHNIQUE: CT head without contrast. M: CTBWO_3 CT Dose-Length Product (DLP): 748 mGy*cm CT Dose Reduction Employed: Automated exposure control(AEC) and iterative recon COMPARISON: CTA head/neck 06/21/2020 RESULT: Acute change: No evidence of an acute intracranial process. Hemorrhage: No evidence of acute intracranial hemorrhage. Mass Lesion / Mass Effect: No evidence of an intracranial mass, extra-axial fluid collection, or significant localized mass effect. Chronic change: None apparent. Parenchyma: No significant parenchymal volume loss. Ventricles: Normal caliber and morphology. Other: The calvarium, skull base, imaged paranasal sinuses, mastoids, orbits and extracranial soft tissues are unremarkable. Lathe Puller (topogram) images: No additional findings. IMPRESSION: No acute intracranial findings. Probate Paralegal: ROLANDO Transcribe Date/Time: Nov 19 2023 12:37P Dictated by : HOPE HENRIQUEZ MD This examination was interpreted and the report reviewed and electronically signed by: HOPE HENRIQUEZ MD on Nov 19 2023 12:38PM EST [id number] Normal [facility] Basic metabolic 2000 panelon 11-18-2023 Anion gap [Moles/Vol] 7 mmol/L Low 9-18 [facility] Comment on above: Order Comment: Meng blancas Type: BLOOD SPECIMEN Ordering Facility: [facility] Address: [address] [place] [address] Performed By: #### 3 3762-6, 07764-2 #### [facility] CLIA [id number] 1 [place] [address] [place] Calcium [Mass/Vol] 8.6 mg/dL Normal 8.5-10.2 [facility] Comment on above: Order Comment: Meng blancas Type: BLOOD SPECIMEN Ordering Facility: [facility] Address: [address] [place] [address] Performed By: #### 3 3762-6, 40759-5 #### [facility] CLIA [id number] [address] [place] Chloride [Moles/Vol] 92 mmol/L Low 97-105 [facility] Comment on above: Order Comment: Speci men Type: BLOOD SPECIMEN Ordering Facility: [facility] Address: [address] [place] [address] Performed By: #### 3 3762-6, 96431-5 #### [facility] CLIA [id number] [address] [place] CO2 [Moles/Vol] 35 mmol/L High 22-30 [facility] Comment on above: Order Comment: Speci men Type: BLOOD SPECIMEN Ordering Facility: [facility] Address: [address] [place] [address] Performed By: #### 3 3762-6, 49203-7 #### [facility] CLIA [id number] [address] Creatinine [Mass/Vol] 0.57 mg/dL Low 0.73-1.22 [facility] Comment on above: Order Comment: Speci men Type: BLOOD SPECIMEN Ordering Facility: [facility] Address: [address] [place] [address] Performed By: #### 3 3762-6, 61612-8 #### [facility] CLIA [id number] [address] Creatinine and Glomerular filtration rate.predicted panel (S/P/Bld) 118 mL/min/1.73m??? Normal >=60 [facility] Comment on above: Order Comment: Speci men Type: BLOOD SPECIMEN Ordering Facility: [facility] Address: [address] [place] [address] Result Comment: Ingrid mated Glomerular Filtration Rate (eGFR) is calculated using the 2020 CKD-EPI creatinine equation. This equation utilizes serum creatinine, sex, and age as parameters. The creatinine assay has traceable calibration to isotope dilution-mass spectrometry. Refer to KDIGO guidelines for clinical interpretation. In patients with unstable renal function, e.g. those with acute kidney injury, the eGFR may not accurately reflect actual GFR. Performed By: #### 3 3762-6, 01213-5 #### [facility] CLIA [id number] 1 [place] [address] [place] Glucose [Mass/Vol] 101 mg/dL High 74-99 [facility] Comment on above: Order Comment: Meng blancas Type: BLOOD SPECIMEN Ordering Facility: [facility] Address: [address] [place] [address] Result Comment: The [place] Diabetes Association (ADA) provides guidance for cutoff values for fasting glucose and random glucose. The ADA defines fasting as no caloric intake for at least 8 hours. Fasting plasma glucose results between 100 to 125 mg/dL indicate increased risk for diabetes (prediabetes). Fasting plasma glucose results greater than or equal to 126 mg/dL meet the criteria for diagnosis of diabetes. In the absence of unequivocal hyperglycemia, results should be confirmed by repeat testing. In a patient with classic symptoms of hyperglycemia or hyperglycemic crisis, random plasma glucose results greater than or equal to 200 mg/dL meet the criteria for diagnosis of diabetes. Reference: Standards of Medical Care in Diabetes 2016, [place] Diabetes Association. Diabetes Care. 2016.39(Suppl 1). Performed By: #### 3 3762-6, 82217-9 #### [facility] CLIA [id number] 1 [place] [address] [place] Potassium [Moles/Vol] 4.3 mmol/L Normal 3.7-5.1 [facility] Comment on above: Order Comment: Meng blancas Type: BLOOD SPECIMEN Ordering Facility: [facility] Address: [address] [place] [address] Performed By: #### 3 3762-6, 98314-4 #### [facility] CLIA [id number] 1 [place] [address] [place] Sodium [Moles/Vol] 134 mmol/L Low 136-144 [facility] Comment on above: Order Comment: Meng blancas Type: BLOOD SPECIMEN Ordering Facility: [facility] Address: [address] [place] [address] Performed By: #### 3 3762-6, 80507-0 #### [facility] CLIA [id number] [address] STATES OF [facility] Urea nitrogen [Mass/Vol] 17 mg/dL Normal 9-24 [facility] Comment on above: Order Comment: Speci men Type: BLOOD SPECIMEN Ordering Facility: [facility] Address: [address] [place] [address] Performed By: #### 3 3762-6, 01068-4 #### [facility] CLIA [id number] [address] [place] CBC panel Auto (Bld)on 11-18 Erythrocyte distribution width (RBC) [Ratio] 12.6 % Normal 11.5-15.0 [facility] Comment on above: Order Comment: Speci men Type: BLOOD SPECIMEN Ordering Facility: [facility] Address: [address] [place] [address] Performed By: #### 3 3762-6, 42274-6 #### [facility] CLIA [id number] [address] Hematocrit (Bld) [Volume fraction] 42.0 % Normal 39.0-51.0 [facility] Comment on above: Order Comment: Speci men Type: BLOOD SPECIMEN Ordering Facility: [facility] Address: [address] [place] [address] Performed By: #### 3 3762-6, 59637-9 #### [facility] CLIA [id number] [address] [place] Hemoglobin (Bld) [Mass/Vol] 13.7 g/dL Normal 13.0-17.0 [facility] Comment on above: Order Comment: Speci men Type: BLOOD SPECIMEN Ordering Facility: [facility] Address: [address] [place] [address] Performed By: #### 3 3762-6, 19532-4 #### [facility] CLIA [id number] [address] [place] [address] [place] MCH (RBC) [Entitic mass] 31.0 pg Normal 26.0-34.0 [facility] Comment on above: Order Comment: Speci men Type: BLOOD SPECIMEN Ordering Facility: [facility] Address: [address] [place] [address] Performed By: #### 3 3762-6, 93676-6 #### [facility] CLIA [id number] [address] MCHC (RBC) [Mass/Vol] 32.6 g/dL Normal 30.5-36.0 [facility] Comment on above: Order Comment: Speci men Type: BLOOD SPECIMEN Ordering Facility: [facility] Address: [address] [place] [address] Performed By: #### 3 3762-6, 07942-7 #### [facility] CLIA [id number] [address] MCV (RBC) [Entitic vol] 95.0 fL Normal 80.0-100.0 [facility] Comment on above: Order Comment: Speci men Type: BLOOD SPECIMEN Ordering Facility: [facility] Address: [address] [place] [address] Performed By: #### 3 3762-6, 54333-4 #### [facility] CLIA [id number] [address] Nucleated RBC (Bld) [#/Vol] 10*3/uL Normal <0.01 [facility] Comment on above: Order Comment: Speci men Type: BLOOD SPECIMEN Ordering Facility: [facility] Address: [address] [place] [address] Performed By: #### 3 3762-6, 62939-1 #### [facility] CLIA [id number] [address] Platelet mean volume (Bld) [Entitic vol] 9.9 fL Normal 9.0-12.7 [facility] Comment on above: Order Comment: Speci men Type: BLOOD SPECIMEN Ordering Facility: [facility] Address: [address] [place] [address] Performed By: #### 3 3762-6, 23966-8 #### [facility] CLIA [id number] [address] Platelets (Bld) [#/Vol] 254 10*3/uL Normal 150-400 [facility] Comment on above: Order Comment: Speci men Type: BLOOD SPECIMEN Ordering Facility: [facility] Address: [address] [place] [address] Performed By: #### 3 3762-6, 25863-3 #### [facility] CLIA [id number] [address] RBC (Bld) [#/Vol] 4.42 10*6/uL Normal 4.20-6.00 [facility] Comment on above: Order Comment: Speci men Type: BLOOD SPECIMEN Ordering Facility: [facility] Address: [address] [place] [address] Performed By: #### 3 3762-6, 02911-7 #### [facility] CLIA [id number] [address] WBC (Bld) [#/Vol] 11.04 10*3/uL High 3.70-11.00 [facility] Comment on above: Order Comment: Speci men Type: BLOOD SPECIMEN Ordering Facility: [facility] Address: [address] [place] [address] Performed By: #### 3 3762-6, 65886-9 #### [facility] CLIA [id number] [address] [place] Basic metabolic 2000 panelon 11-17-2023 Anion gap [Moles/Vol] 2 mmol/L Low 9-18 [facility] Comment on above: Order Comment: Speci men Type: BLOOD SPECIMENOrdering Facility: [facility] Address: [address] [place] [address] Performed By: #### 2 4321-2 ####[facility] [id number] [address] [place] Calcium [Mass/Vol] 8.8 mg/dL Normal 8.5-10.2 [facility] Comment on above: Order Comment: Speci men Type: BLOOD SPECIMENOrdering Facility: [facility] Address: [address] [place] [address] Performed By: #### 2 4321-2 ####[facility] [id number] [place] [address] [place] Chloride [Moles/Vol] 89 mmol/L Low 97-105 [facility] Comment on above: Order Comment: Speci men Type: BLOOD SPECIMENOrdering Facility: [facility] Address: [address] [place] [address] Performed By: #### 2 4321-2 ####[facility] [id number] [address] [place] CO2 [Moles/Vol] 43 mmol/L High 22-30 [facility] Comment on above: Order Comment: Speci men Type: BLOOD SPECIMENOrdering Facility: [facility] Address: [address] [place] [address] Performed By: #### 2 4321-2 ####[facility] [id number] [address] [place] Creatinine [Mass/Vol] 0.62 mg/dL Low 0.73-1.22 [facility] Comment on above: Order Comment: Speci men Type: BLOOD SPECIMENOrdering Facility: [facility] Address: [address] [place] [address] Performed By: #### 2 4321-2 ####[facility] [id number] [address] Creatinine and Glomerular filtration rate.predicted panel (S/P/Bld) 115 mL/min/1.73m??? Normal >=60 [facility] Comment on above: Order Comment: Speci men Type: BLOOD SPECIMENOrdering Facility: [facility] Address: [address] [place] [address] Result Comment: Ingrid mated Glomerular Filtration Rate (eGFR) is calculated using the 2020 CKD-EPI creatinine equation. This equation utilizes serum creatinine, sex, and age as parameters. The creatinine assay has traceable calibration to isotope dilution-mass spectrometry. Refer to KDIGO guidelines for clinical interpretation. In patients with unstable renal function, e.g. those with acute kidney injury, the eGFR may not accurately reflect actual GFR. Performed By: #### 2 4321-2 ####[facility] [id number] [place] [address] [place] Glucose [Mass/Vol] 99 mg/dL Normal 74-99 [facility] Comment on above: Order Comment: Speci yonny Type: BLOOD SPECIMENOrdering Facility: [facility] Address: [address] [place] [address] Result Comment: The [place] Diabetes Association (ADA) provides guidance for cutoff values for fasting glucose and random glucose. The ADA defines fasting as no caloric intake for at least 8 hours. Fasting plasma glucose results between 100 to 125 mg/dL indicate increased risk for diabetes (prediabetes). Fasting plasma glucose results greater than or equal to 126 mg/dL meet the criteria for diagnosis of diabetes. In the absence of unequivocal hyperglycemia, results should be confirmed by repeat testing. In a patient with classic symptoms of hyperglycemia or hyperglycemic crisis, random plasma glucose results greater than or equal to 200 mg/dL meet the criteria for diagnosis of diabetes. Reference: Standards of Medical Care in Diabetes 2016, [place] Diabetes Association. Diabetes Care. 2016.39(Suppl 1). Performed By: #### 2 4321-2 ####[facility] [id number] [place] [address] [place] Potassium [Moles/Vol] 4.0 mmol/L Normal 3.7-5.1 [facility] Comment on above: Order Comment: Meng blancas Type: BLOOD SPECIMENOrdering Facility: [facility] Address: [address] [place] [id number] Performed By: #### 2 4321-2 ####[facility]IA [id number] [place] [address] [place] Sodium [Moles/Vol] 134 mmol/L Low 136-144 [facility] Comment on above: Order Comment: Speci men Type: BLOOD SPECIMENOrdering Facility: [facility] Address: [address] [place] [address] Performed By: #### 2 4321-2 ####[facility]ORYCL[facility] [id number] [address] STATES OF [facility] Urea nitrogen [Mass/Vol] 16 mg/dL Normal 9-24 [facility] Comment on above: Order Comment: Speci men Type: BLOOD SPECIMENOrdering Facility: [facility] Address: [address] [place] [address] Performed By: #### 2 4321-2 ####[facility]ORYCLIA [id number] [address] [place] CBC panel Auto (Bld)on 11-17 Erythrocyte distribution width (RBC) [Ratio] 12.2 % Normal 11.5-15.0 [facility] Comment on above: Order Comment: Speci men Type: BLOOD SPECIMEN Ordering Facility: [facility] Address: [address] [place] [address] Performed By: #### 3 3762-6, 36664-4 #### [facility] CLIA [id number] [address] [place] Hematocrit (Bld) [Volume fraction] 40.2 % Normal 39.0-51.0 [facility] Comment on above: Order Comment: Speci men Type: BLOOD SPECIMEN Ordering Facility: [facility] Address: [address] [place] [address] Performed By: #### 3 3762-6, 29752-6 #### [email or web address] CLIA [id number] [address] [place] Hemoglobin (Bld) [Mass/Vol] 12.8 g/dL Low 13.0-17.0 [facility] Comment on above: Order Comment: Speci men Type: BLOOD SPECIMEN Ordering Facility: [facility] Address: [address] [place] [address] Performed By: #### 3 3762-6, 81459-5 #### [facility] CLIA [id number] [address] MCH (RBC) [Entitic mass] 30.5 pg Normal 26.0-34.0 [facility] Comment on above: Order Comment: Speci men Type: BLOOD SPECIMEN Ordering Facility: [facility] Address: [address] [place] [address] Performed By: #### 3 3762-6, 98323-9 #### [facility] CLIA [id number] [address] MCHC (RBC) [Mass/Vol] 31.8 g/dL Normal 30.5-36.0 [facility] Comment on above: Order Comment: Speci men Type: BLOOD SPECIMEN Ordering Facility: [facility] Address: [address] [place] [address] Performed By: #### 3 3762-6, 96847-6 #### [facility] CLIA [id number] [address] MCV (RBC) [Entitic vol] 95.9 fL Normal 80.0-100.0 [facility] Comment on above: Order Comment: Speci men Type: BLOOD SPECIMEN Ordering Facility: [facility] Address: [address] [place] [address] Performed By: #### 3 3762-6, 47739-2 #### [facility] CLIA [id number] [address] Nucleated RBC (Bld) [#/Vol] 10*3/uL Normal <0.01 [facility] Comment on above: Order Comment: Speci men Type: BLOOD SPECIMEN Ordering Facility: [facility] Address: [address] [place] [address] Performed By: #### 3 3762-6, 61541-5 #### [facility] CLIA [id number] [address] Platelet mean volume (Bld) [Entitic vol] 10.0 fL Normal 9.0-12.7 [facility] Comment on above: Order Comment: Speci men Type: BLOOD SPECIMEN Ordering Facility: [facility] Address: [address] [place] [address] Performed By: #### 3 3762-6, 15830-0 #### [email or web address] CLIA [id number] [address] Platelets (Bld) [#/Vol] 239 10*3/uL Normal 150-400 [facility] Comment on above: Order Comment: Speci men Type: BLOOD SPECIMEN Ordering Facility: [facility] Address: [address] [place] [address] Performed By: #### 3 3762-6, 93412-1 #### [facility] CLIA [id number] [address] RBC (Bld) [#/Vol] 4.19 10*6/uL Low 4.20-6.00 [facility] Comment on above: Order Comment: Speci men Type: BLOOD SPECIMEN Ordering Facility: [facility] Address: [address] [place] [address] Performed By: #### 3 3762-6, 48069-3 #### [facility] CLIA [id number] [address] WBC (Bld) [#/Vol] 9.04 10*3/uL Normal 3.70-11.00 [facility] Comment on above: Order Comment: Speci men Type: BLOOD SPECIMEN Ordering Facility: [facility] Address: [address] [place] [address] Performed By: #### 3 3762-6, 71443-9 #### [email or web address] CLIA [id number] [address] Felice 11-17-2023 ABIEL Telephone (NOAM) JAVIER DICKSON ([id number]) 1970 M Date Time Provider Department 11/17/23 DEANNA FLORES During your visit today, we recorded the following information about you: Deanna Flores APRN.SECURITY MONITOR 11/17/2023 10:[address] Cristina, Please sign the orders for Javier Yessi (CXR for resolution PNA and PFTs for baseline spirometry) The patient will also need a follow up with our office afterwards. Thank you! Deanna Flores APRN.SECURITY MONITOR November 17, 2023 10:16 AM Allergies As of Date: 11/17/2023 (No Known Allergies) Date Reviewed: 11/17/2023 Reviewed by: Deanna Flores APRN.CNP - Fully Assessed Reason for Visit: Orders [681] Primary Visit Diagnosis:Chronic obstructive pulmonary disease, unspecified COPD type (HCC) [J44.9] Order(s):XR CHEST 2V FRONTAL/LAT [1439841] Order #: [id number] FUTURE SPIROMETRY BASELINE ONLY [0424936] Order #: [id number] FUTURE LUNG DIFFUSION CAPACITY (DLCO) [5333838] Order #: [id number] FUTURE LUNG VOLUMES [7397414] Order #: [id number] FUTURE Prescriptions as of 11/17/2023 - albuterol HFA (PROVENTIL HFA, VENTOLIN HFA) 90 mcg/actuation inhaler Inhale 2 Puffs as instructed every 4 hours as needed for wheezing/shortness of breath. - fluticasone-umeclidin- vilanter (TRELEGY ELLIPTA) 100-62.5-25 mcg inhalation powder Inhale 1 Puff as instructed once daily. Facility-Administered Medications as of 11/17/2023 - albuterol HFA 90 mcg/actuation 2 Puff (PROVENTIL HFA, VENTOLIN HFA) - ipratropium-albuterol 3 mL nebulizer solution (DUONEB) - budesonide 0.5 mg/2 mL 0.5 mg (PULMICORT) - senna-docusate 8.6-50 mg 1 tablet (SENNA-S) - melatonin 3 mg tab(s) - ondansetron (PF) 4 mg injection (ZOFRAN) - doxycycline hyclate 100 mg cap(s) (VIBRAMYCIN) - cefTRIAXone iv piggyback 2 g in dextrose (iso-osmotic) 50 mL (ROCEPHIN) - pantoprazole DR 40 mg tab(s) (PROTONIX) - acetaminophen 650 mg tab(s) (TYLENOL) - NaCl 0.9% iv flush bag - enoxaparin 40 mg injection (LOVENOX) - sodium chloride 0.9 % (flush) 2-10 mL (BD POSIFLUSH) - perflutren lipid microspheres 1.1 mg/mL 1.3 mL injection (DEFINITY) Problem List As Of Date 11/17/2023 Noted Resolved Open neck wound [S11.90XA] 06/21/2020 Nicotine use disorder, F17.2 [F17.200] 08/05/2020 Cold injury [T69.9XXA] 01/10/2021 Pain in both feet [M79.671, M79.672] 01/14/2021 Drug abuse (HCC) [F19.10] 01/14/2021 COPD exacerbation (HCC) [J44.1] 11/13/2023 RSV (acute bronchiolitis due to respiratory syn*11/13/2023 Sepsis with encephalopathy without septic shock*11/13/2023 Acute respiratory failure with hypoxia and hype*11/13/2023 Respiratory acidosis [E87.29] 11/13/2023 Pneumonia of right lower lobe due to infectious*11/16/2023 Tobacco abuse [Z72.0] 11/16/2023 Tobacco abuse counseling [Z71.6] 11/16/2023 On deep vein thrombosis (DVT) prophylaxis [Z79.*11/16/2023 Marijuana abuse [F12.10] 11/17/2023 Encounter Status:Closed by BETSY CRISTINA on 11/17/[address] [facility] NURSING PROGon 11-17-2023 NURSING PROG HNO ID: [id number] Author: ELVIS PALMER, RN Service: Nursing Author Type: Registered Nurse Type: Nursing Progress Note Filed: 11/17/2023 12:27 Note Text: Other: Destat study: Pts O2 dropped to 85% on RA at rest. Pts O2 recovered to 95% on 2L while at rest. Normal [facility] THERAPY NTon 11-17-2023 THERAPY NT HNO ID: [id number] Author: MAIKEL RAMOS, ONUR Service: Respiratory Therapy Author Type: Registered Resp Therapist Type: Therapy (PT/OT/Speech/Resp) Filed: 11/17/2023 10:27 Note Text: 11/17/23 1022 COPD Consult Assessment O2 Therapy NC Liters 2 SpO2 92 % COPD [facility] Ordered Yes Short Acting Beta Agonists used in Hospital ProAir, Proventil, Ventolin (Albuterol) Resting SpO2 on room air (current) 88 Home Oxygen Device RA Patient has participated in Pulmonary Rehab Never Follow Up Visit Instruction Importance of follow-up visit addressed (phone number and address given) Education Topic COPD Education Pt stated that he is willing to try Pulmonary Rehab. Normal [facility] NURSING PROGon 11-16-2023 NURSING PROG HNO ID: [id number] Author: MONTSERRAT PLUMMER RN Service: Nursing Author Type: Registered Nurse Type: Nursing Progress Note Filed: 11/16/2023 09:51 Note Text: Transfer Note: PATIENT NAME: Javier Dickson Patient Location: [place] [address] [address] Room: [place] [address] Patient transferred into room/unit 4220 in stable condition. Actions taken: Report given/called to Lisa SPAIN. Normal [facility] XR CHEST 1V FRONTALon 2023 XR CHEST 1V FRONTAL * * *Final Report* * * DATE OF EXAM: Nov 16 2023 5:38AM AKX 5290 - XR CHEST 1V FRONTAL / PROCEDURE REASON: Hypoxemia * * * * Physician Interpretation * * * * EXAMINATION: CHEST RADIOGRAPH (SINGLE VIEW AP OR PA) CLINICAL HISTORY: Hypoxemia MQ: XC1_5 Comparison: 11/13/2023 RESULT: Lines, tubes, and devices: Overlying color television console monitor leads. Lungs and pleura: Changes in the lungs consistent with emphysema. Improving peribronchial densities in the right lower lobe. Cardiomediastinal silhouette: Normal cardiomediastinal silhouette. Other: No significant additional findings. IMPRESSION: Improving peribronchial infiltrates right lower lung. Changes of emphysema. Probate Paralegal: ROLANDO Transcribe Date/Time: Nov 16 2023 7:02A Dictated by : PAULA MICHAELS MD This examination was interpreted and the report reviewed and electronically signed by: PAULA MICHAELS MD on Nov 16 2023 7:05AM EST [id number] Normal [facility] CBC W Auto Differential pane l (Bld)on 11-15-2023 Basophils (Bld) [#/Vol] 10*3/uL Normal <0.11 [facility] Comment on above: Order Comment: Speci men Type: BLOOD SPECIMEN Ordering Facility: [facility] Address: [address] [place] [address] Performed By: #### L [id number] #### [facility] CLIA [id number] [address] [place] Basophils/100 WBC (Bld) 0.1 % Normal [facility] Comment on above: Order Comment: Speci men Type: BLOOD SPECIMEN Ordering Facility: [facility] Address: [address] [place] [address] Performed By: #### L [id number] #### [facility] CLIA [id number] [address] [place] Differential cell count method Nom (Bld) Auto Normal [facility] Comment on above: Order Comment: Speci men Type: BLOOD SPECIMEN Ordering Facility: [facility] Address: [address] [place] [address] Performed By: #### L [id number] #### [facility] CLIA [id number] [address] [place] [address] [place] Eosinophils (Bld) [#/Vol] 10*3/uL Normal <0.46 [facility] Comment on above: Order Comment: Speci men Type: BLOOD SPECIMEN Ordering Facility: [facility] Address: [address] [place] [address] Performed By: #### L [id number] #### [facility] CLIA [id number] [address] [place] Eosinophils/100 WBC (Bld) 0.0 % Normal [facility] Comment on above: Order Comment: Speci men Type: BLOOD SPECIMEN Ordering Facility: [facility] Address: [address] [place] [address] Performed By: #### L [id number] #### [facility] CLIA [id number] [address] Erythrocyte distribution width (RBC) [Ratio] 12.4 % Normal 11.5-15.0 [facility] Comment on above: Order Comment: Speci men Type: BLOOD SPECIMEN Ordering Facility: [facility] Address: [address] [place] [address] Performed By: #### L [id number] #### [facility] CLIA [id number] [address] [place] Hematocrit (Bld) [Volume fraction] 41.6 % Normal 39.0-51.0 [facility] Comment on above: Order Comment: Speci men Type: BLOOD SPECIMEN Ordering Facility: [facility] Address: [address] [place] [address] Performed By: #### L [id number] #### [facility] CLIA [id number] [address] [place] Hemoglobin (Bld) [Mass/Vol] 13.3 g/dL Normal 13.0-17.0 [facility] Comment on above: Order Comment: Speci men Type: BLOOD SPECIMEN Ordering Facility: [facility] Address: [address] [place] [address] Performed By: #### L [id number] #### [facility] CLIA [id number] [address] [place] Immature granulocytes (Bld) [#/Vol] 0.05 10*3/uL Normal <0.10 [facility] Comment on above: Order Comment: Speci men Type: BLOOD SPECIMEN Ordering Facility: [facility] Address: [address] [place] [address] Performed By: #### L [id number] #### [facility] CLIA [id number] [address] [place] Immature granulocytes/100 WBC (Bld) 0.4 % Normal [facility] Comment on above: Order Comment: Speci men Type: BLOOD SPECIMEN Ordering Facility: [facility] Address: [address] [place] [address] Performed By: #### L [id number] #### [facility] CLIA [id number] [address] OF [facility] Lymphocytes (Bld) [#/Vol] 1.12 10*3/uL Normal 1.00-4.00 [facility] Comment on above: Order Comment: Speci men Type: BLOOD SPECIMEN Ordering Facility: [facility] Address: [address] [place] [address] Performed By: #### L [id number] #### [facility] CLIA [id number] [address] Lymphocytes/100 WBC (Bld) 9.3 % Normal [facility] Comment on above: Order Comment: Speci men Type: BLOOD SPECIMEN Ordering Facility: [facility] Address: [address] [place] [address] Performed By: #### L [id number] #### [facility] CLIA [id number] [address] MCH (RBC) [Entitic mass] 31.2 pg Normal 26.0-34.0 [facility] Comment on above: Order Comment: Speci men Type: BLOOD SPECIMEN Ordering Facility: [facility] Address: [address] [place] [address] Performed By: #### L [id number] #### [facility] CLIA [id number] [address] MCHC (RBC) [Mass/Vol] 32.0 g/dL Normal 30.5-36.0 [facility] Comment on above: Order Comment: Speci men Type: BLOOD SPECIMEN Ordering Facility: [facility] Address: [address] [place] [address] Performed By: #### L [id number] #### [facility] CLIA [id number] [address] [place] MCV (RBC) [Entitic vol] 97.7 fL Normal 80.0-100.0 [facility] Comment on above: Order Comment: Speci men Type: BLOOD SPECIMEN Ordering Facility: [facility] Address: [facility] [place] [address] Performed By: #### L [id number] #### [facility] CLIA [id number] [address] [place] Monocytes (Bld) [#/Vol] 0.95 10*3/uL High <0.87 [facility] Comment on above: Order Comment: Speci men Type: BLOOD SPECIMEN Ordering Facility: [facility] Address: [address] [place] [address] Performed By: #### L [id number] #### [facility] CLIA [id number] [address] Monocytes/100 WBC (Bld) 7.9 % Normal [facility] Comment on above: Order Comment: Speci men Type: BLOOD SPECIMEN Ordering Facility: [facility] Address: [address] [place] [address] Performed By: #### L [id number] #### [facility] CLIA [id number] [address] [place] Neutrophils (Bld) [#/Vol] 9.87 10*3/uL High 1.45-7.50 [facility] Comment on above: Order Comment: Speci men Type: BLOOD SPECIMEN Ordering Facility: [facility] Address: [address] [place] [address] Performed By: #### L [id number] #### [facility] CLIA [id number] [address] [place] Neutrophils/100 WBC (Bld) 82.3 % Normal [facility] Comment on above: Order Comment: Speci men Type: BLOOD SPECIMEN Ordering Facility: [facility] Address: [address] [place] [address] Performed By: #### L [id number] #### [facility] CLIA [id number] [address] [place] Nucleated RBC (Bld) [#/Vol] 10*3/uL Normal <0.01 [facility] Comment on above: Order Comment: Speci men Type: BLOOD SPECIMEN Ordering Facility: [facility] Address: [address] [place] [address] Performed By: #### L [id number] #### [facility] CLIA [id number] [address] [place] Nucleated RBC/100 WBC (Bld) [Ratio] 0.0 /[address] [facility] Comment on above: Order Comment: Speci men Type: BLOOD SPECIMEN Ordering Facility: [facility] Address: [address] [place] [address] Performed By: #### L [id number] #### [facility] CLIA [id number] [address] [place] Platelet mean volume (Bld) [Entitic vol] 10.3 fL Normal 9.0-12.7 [facility] Comment on above: Order Comment: Speci men Type: BLOOD SPECIMEN Ordering Facility: [facility] Address: [address] [place] [address] Performed By: #### L [id number] #### [facility] CLIA [id number] [address] [place] Platelets (Bld) [#/Vol] 245 10*3/uL Normal 150-400 [facility] Comment on above: Order Comment: Speci men Type: BLOOD SPECIMEN Ordering Facility: [facility] Address: [address] [place] [address] Performed By: #### L [id number] #### [facility] CLIA [id number] [address] [place] RBC (Bld) [#/Vol] 4.26 10*6/uL Normal 4.20-6.00 [facility] Comment on above: Order Comment: Speci men Type: BLOOD SPECIMEN Ordering Facility: [facility] Address: [address] [place] [address] Performed By: #### L [id number] #### [facility] CLIA [id number] [address] WBC (Bld) [#/Vol] 12.00 10*3/uL High 3.70-11.00 [facility] Comment on above: Order Comment: Speci men Type: BLOOD SPECIMEN Ordering Facility: [facility] Address: [address] [place] [address] Performed By: #### L [id number] #### [facility] CLIA [id number] [address] Comprehensive metabolic 2000 panelon 11-15-2023 Albumin [Mass/Vol] 3.6 g/dL Low 3.9-4.9 [facility] Comment on above: Order Comment: Speci men Type: BLOOD SPECIMEN Ordering Facility: [facility] Address: [address] [place] [address] Performed By: #### 3 3762-6, 12252-1 #### [facility] CLIA [id number] [address] ALP [Catalytic activity/Vol] 76 U/L Normal 38-113 [facility] Comment on above: Order Comment: Speci men Type: BLOOD SPECIMEN Ordering Facility: [facility] Address: [address] [place] [address] Performed By: #### 3 3762-6, 90467-0 #### [facility] CLIA [id number] [address] ALT With P-5'-P [Catalytic activity/Vol] 24 U/L Normal 10-54 [facility] Comment on above: Order Comment: Speci men Type: BLOOD SPECIMEN Ordering Facility: [facility] Address: [address] [place] [address] Performed By: #### 3 3762-6, 83080-8 #### [facility] CLIA [id number] [address] Anion gap [Moles/Vol] 4 mmol/L Low 9-18 [facility] Comment on above: Order Comment: Speci men Type: BLOOD SPECIMEN Ordering Facility: [facility] Address: [address] [place] [address] Performed By: #### 3 3762-6, 60902-4 #### [facility] CLIA [id number] [address] [place] AST With P-5'-P [Catalytic activity/Vol] 16 U/L Normal 14-40 [facility] Comment on above: Order Comment: Speci men Type: BLOOD SPECIMEN Ordering Facility: [facility] Address: [address] [place] [address] Performed By: #### 3 3762-6, 72396-6 #### [facility] CLIA [id number] [address] [place] Bilirubin [Mass/Vol] 0.2 mg/dL Normal 0.2-1.3 [facility] Comment on above: Order Comment: Speci men Type: BLOOD SPECIMEN Ordering Facility: [facility] Address: [address] [place] [address] Performed By: #### 3 3762-6, 76184-4 #### [facility] CLIA [id number] [address] [place] Calcium [Mass/Vol] 8.7 mg/dL Normal 8.5-10.2 [facility] Comment on above: Order Comment: Speci men Type: BLOOD SPECIMEN Ordering Facility: [facility] Address: [address] [place] [address] Performed By: #### 3 3762-6, 53674-8 #### [facility] CLIA [id number] [address] [place] Chloride [Moles/Vol] 91 mmol/L Low 97-105 [facility] Comment on above: Order Comment: Speci men Type: BLOOD SPECIMEN Ordering Facility: [facility] Address: [address] [place] [address] Performed By: #### 3 3762-6, 59680-9 #### [facility] CLIA [id number] [address] [place] [address] [place] CO2 [Moles/Vol] 41 mmol/L High 22-30 [facility] Comment on above: Order Comment: Speci men Type: BLOOD SPECIMEN Ordering Facility: [facility] Address: [address] [place] [address] Performed By: #### 3 3762-6, 20371-5 #### [facility] CLIA [id number] [address] [place] Creatinine [Mass/Vol] 0.68 mg/dL Low 0.73-1.22 [facility] Comment on above: Order Comment: Speci men Type: BLOOD SPECIMEN Ordering Facility: [facility] Address: [address] [place] [address] Performed By: #### 3 3762-6, 62852-9 #### [facility] CLIA [id number] [address] Creatinine and Glomerular filtration rate.predicted panel (S/P/Bld) 112 mL/min/1.73m??? Normal >=60 [facility] Comment on above: Order Comment: Speci men Type: BLOOD SPECIMEN Ordering Facility: [facility] Address: [address] [place] [address] Result Comment: Ingrid mated Glomerular Filtration Rate (eGFR) is calculated using the 2020 CKD-EPI creatinine equation. This equation utilizes serum creatinine, sex, and age as parameters. The creatinine assay has traceable calibration to isotope dilution-mass spectrometry. Refer to KDIGO guidelines for clinical interpretation. In patients with unstable renal function, e.g. those with acute kidney injury, the eGFR may not accurately reflect actual GFR. Performed By: #### 3 3762-6, 72479-7 #### [facility] CLIA [id number] [address] [place] Glucose [Mass/Vol] 105 mg/dL High 74-99 [facility] Comment on above: Order Comment: Speci men Type: BLOOD SPECIMEN Ordering Facility: [facility] Address: [address] [place] [address] Result Comment: The [place] [employer] (ADA) provides guidance for cutoff values for fasting glucose and random glucose. The ADA defines fasting as no caloric intake for at least 8 hours. Fasting plasma glucose results between 100 to 125 mg/dL indicate increased risk for diabetes (prediabetes). Fasting plasma glucose results greater than or equal to 126 mg/dL meet the criteria for diagnosis of diabetes. In the absence of unequivocal hyperglycemia, results should be confirmed by repeat testing. In a patient with classic symptoms of hyperglycemia or hyperglycemic crisis, random plasma glucose results greater than or equal to 200 mg/dL meet the criteria for diagnosis of diabetes. Reference: Standards of Medical Care in Diabetes 2016, Swedish Diabetes Association. Diabetes Care. 2016.39(Suppl 1). Performed By: #### 3 3762-6, 47116-8 #### [email or web address] [facility] CLIA [id number] 1 [place] [address] [place] Potassium [Moles/Vol] 4.2 mmol/L Normal 3.7-5.1 [facility] Comment on above: Order Comment: Speci men Type: BLOOD SPECIMEN Ordering Facility: [facility] Address: [address] [place] [address] Performed By: #### 3 3762-6, 90101-9 #### [facility] CLIA [id number] 1 [place] [address] [place] Protein [Mass/Vol] 5.9 g/dL Low 6.3-8.0 [facility] Comment on above: Order Comment: Speci men Type: BLOOD SPECIMEN Ordering Facility: [facility] Address: [address] [place] [address] Performed By: #### 3 3762-6, 28125-7 #### [facility] CLIA [id number] 1 [place] [address] [place] Sodium [Moles/Vol] 136 mmol/L Normal 136-144 [facility] Comment on above: Order Comment: Speci men Type: BLOOD SPECIMEN Ordering Facility: [facility] Address: [address] [place] [address] Performed By: #### 3 3762-6, 34550-9 #### [facility] CLIA [id number] 1 [place] [address] [place] Urea nitrogen [Mass/Vol] 29 mg/dL High 9-24 [facility] Comment on above: Order Comment: Speci men Type: BLOOD SPECIMEN Ordering Facility: [facility] Address: [address] [place] [address] Performed By: #### 3 3762-6, 84205-9 #### [facility] CLIA [id number] [address] [place] ALLIED HEALTHon 11-14-2023 ALLIED HEALTH HNO ID: [id number] Author: Ziyad Keys II Service: Infection Prevention Author Type: ? Type: Allied Health Filed: 11/14/2023 9:52 AM Note Text: ISOLATION NOTE Admission Date: 11/13/2023 Type of Isolation Recommended: Contact Precautions ([place] Isolation Sign) Indication: Respiratory syncytial virus (RSV) Date Isolation Initiated: 11/14/2023 Anticipated Duration of Isolation: Duration of illness Type and Date of Positive Test(s): Positive upper respiratory tract swab collected 11/13/2023 SIGNATURE: Ziyad Keys II PATIENT NAME: Javier Dickson DATE: November 14, 2023 TIME: 9:50 AM PAGER/CONTACT #: Infection Prevention, [id number] Infection Prevention after hours/weekend pager: [phone] [facility] CASE MANAGEMon 11-14-2023 CASE MANAGEM HNO ID: [id number] Author: Karla Gonzales LSW Service: ? Author Type: Rv Technician Type: Care Mgt Progress Note Filed: 11/14/2023 3:12 PM Note Text: CARE MANAGEMENT PROGRESS NOTE SERVICE DATE: 11/14/2023 SERVICE TIME: 3:10 PM LOS: 1 day Sw attempted to met with patient about substance abuse. Patient was positive for cocaine, amphetamines, and marijuana. Patient sleeping and would not arouse. Patient on hi flow nc. Sw to follow to discuss substance abuse issues once patient is medically stable. SIGNATURE: ROLF Kulkarni PATIENT NAME: Javier Dickson DATE: November 14, 2023 TIME: 2:03 PM PAGER/CONTACT #: [phone] [facility] CASE MANAGEM HNO ID: [id number] Author: Karla Gonzales LSW Service: ? Author Type: Rv Technician Type: Care Mgt Progress Note Filed: 11/14/2023 2:02 PM Note Text: CARE MANAGEMENT PROGRESS NOTE SERVICE DATE: 11/14/2023 SERVICE TIME: 1:57 PM LOS: 1 day Sw met with patient at bedside, patient states he has no issues with affording his medications he just does not know what his medications will be at discharge. Sw explained to patient that he will get dc summary that the nurse will go over with him at discharge and discuss medications. Patient admits to drinking alcohol but not daily. Patient states he has slowed down. Patient's ciwa is a 3. Patient states he drinks a couple of drinks when he does drink alcohol patient was vague with answers. Patient declined resources. SIGNATURE: ROLF Kulkarni PATIENT NAME: Javier Dickson DATE: November 14, 2023 TIME: 1:57 PM PAGER/CONTACT #: [phone] [facility] CBC W Auto Differential pane l (Bld)on 11-14-2023 Basophils (Bld) [#/Vol] 10*3/uL Normal <0.11 [facility] Comment on above: Order Comment: Speci yonny Type: BLOOD SPECIMEN Ordering Facility: [facility] Address: [address] [place] [address] Performed By: #### 3 3762-6, 75027-2 #### [email or web address] CLIA [id number] 1 [place] [address] [place] Basophils/100 WBC (Bld) 0.1 % Normal A [facility] Comment on above: Order Comment: Speci men Type: BLOOD SPECIMEN Ordering Facility: [facility] Address: [address] [place] [address] Performed By: #### 3 3762-6, 05492-4 #### [facility] CLIA [id number] 1 [place] [address] [place] Differential cell count method Nom (Bld) Auto Normal [facility] Comment on above: Order Comment: Speci men Type: BLOOD SPECIMEN Ordering Facility: [facility] Address: [address] [place] [address] Performed By: #### 3 376-6, 84267-7 #### [facility] CLIA [id number] [address] [place] Eosinophils (Bld) [#/Vol] 10*3/uL Normal <0.46 [facility] Comment on above: Order Comment: Speci men Type: BLOOD SPECIMEN Ordering Facility: [facility] Address: [address] [place] [address] Performed By: #### 3 6, 14378-7 #### [facility] CLIA [id number] [address] OF [facility] Eosinophils/100 WBC (Bld) 0.1 % Normal [facility] Comment on above: Order Comment: Speci men Type: BLOOD SPECIMEN Ordering Facility: [facility] Address: [address] [place] [address] Performed By: #### 3 6, 71233-8 #### [facility] CLIA [id number] [address] [place] Erythrocyte distribution width (RBC) [Ratio] 12.7 % Normal 11.5-15.0 [facility] Comment on above: Order Comment: Speci men Type: BLOOD SPECIMEN Ordering Facility: [facility] Address: [address] [place] [address] Performed By: #### 3 6, 27399-0 #### [facility] CLIA [id number] [address] [place] Hematocrit (Bld) [Volume fraction] 45.7 % Normal 39.0-51.0 [facility] Comment on above: Order Comment: Speci men Type: BLOOD SPECIMEN Ordering Facility: [facility] Address: [address] [place] [address] Performed By: #### 3 3761-6, 86102-4 #### [facility] CLIA [id number] [address] [place] Hemoglobin (Bld) [Mass/Vol] 14.5 g/dL Normal 13.0-17.0 [facility] Comment on above: Order Comment: Speci men Type: BLOOD SPECIMEN Ordering Facility: [facility] Address: [address] [place] [address] Performed By: #### 3 3762-6, 34558-4 #### [facility] CLIA [id number] [address] [place] Immature granulocytes (Bld) [#/Vol] 0.07 10*3/uL Normal <0.10 [facility] Comment on above: Order Comment: Speci men Type: BLOOD SPECIMEN Ordering Facility: [facility] Address: [address] [place] [address] Performed By: #### 3 3762-6, 78375-3 #### [facility] CLIA [id number] [address] OF [facility] Immature granulocytes/100 WBC (Bld) 0.4 % Normal [facility] Comment on above: Order Comment: Speci men Type: BLOOD SPECIMEN Ordering Facility: [facility] Address: [address] [place] [address] Performed By: #### 3 3762-6, 71182-2 #### [facility] CLIA [id number] [address] [place] Lymphocytes (Bld) [#/Vol] 0.61 10*3/uL Low 1.00-4.00 [facility] Comment on above: Order Comment: Speci men Type: BLOOD SPECIMEN Ordering Facility: [facility] Address: [address] [place] [address] Performed By: #### 3 3762-6, 09767-4 #### [facility] CLIA [id number] [address] [place] Lymphocytes/100 WBC (Bld) 3.9 % Normal [facility] Comment on above: Order Comment: Speci men Type: BLOOD SPECIMEN Ordering Facility: [facility] Address: [address] [place] [address] Performed By: #### 3 3762-6, 50258-0 #### [facility] CLIA [id number] [address] MCH (RBC) [Entitic mass] 30.9 pg Normal 26.0-34.0 [facility] Comment on above: Order Comment: Speci men Type: BLOOD SPECIMEN Ordering Facility: [facility] Address: [address] [place] [address] Performed By: #### 3 376-6, 55439-3 #### [facility] CLIA [id number] [address] MCHC (RBC) [Mass/Vol] 31.7 g/dL Normal 30.5-36.0 [facility] Comment on above: Order Comment: Speci men Type: BLOOD SPECIMEN Ordering Facility: [facility] Address: [address] [place] [address] Performed By: #### 3 376-6, 99091-1 #### [facility] CLIA [id number] [address] MCV (RBC) [Entitic vol] 97.4 fL Normal 80.0-100.0 [facility] Comment on above: Order Comment: Speci men Type: BLOOD SPECIMEN Ordering Facility: [facility] Address: [address] [place] [address] Performed By: #### 3 376-6, 40458-1 #### [facility] CLIA [id number] [address] OF [facility] Monocytes (Bld) [#/Vol] 1.02 10*3/uL High <0.87 [facility] Comment on above: Order Comment: Speci men Type: BLOOD SPECIMEN Ordering Facility: [facility] Address: [address] [place] [address] Performed By: #### 3 3762-6, 15538-5 #### [email or web address] [facility] CLIA [id number] [address] [place] Monocytes/100 WBC (Bld) 6.5 % Normal A [facility] Comment on above: Order Comment: Speci men Type: BLOOD SPECIMEN Ordering Facility: [facility] Address: [address] [place] [address] Performed By: #### 3 3762-6, 38413-0 #### [facility] CLIA [id number] 1 [place] [address] [place] Neutrophils (Bld) [#/Vol] 13.90 10*3/uL High 1.45-7.50 [facility] Comment on above: Order Comment: Speci men Type: BLOOD SPECIMEN Ordering Facility: [facility] Address: [address] [place] [address] Performed By: #### 3 3762-6, 19297-2 #### [facility] CLIA [id number] [address] [place] Neutrophils/100 WBC (Bld) 89.0 % Normal [facility] Comment on above: Order Comment: Speci men Type: BLOOD SPECIMEN Ordering Facility: [facility] Address: [address] [place] [address] Performed By: #### 3 3762-6, 82382-0 #### [facility] CLIA [id number] [address] [place] Nucleated RBC (Bld) [#/Vol] 10*3/uL Normal <0.01 [facility] Comment on above: Order Comment: Speci men Type: BLOOD SPECIMEN Ordering Facility: [facility] Address: [address] [place] [address] Performed By: #### 3 3762-6, 11525-9 #### [facility] CLIA [id number] [address] [place] Nucleated RBC/100 WBC (Bld) [Ratio] 0.0 /[address] [facility] Comment on above: Order Comment: Speci men Type: BLOOD SPECIMEN Ordering Facility: [facility] Address: [address] [place], [place] [address] Performed By: #### 3 3762-6, 05541-1 #### [facility] CLIA [id number] [address] [place] Platelet mean volume (Bld) [Entitic vol] 10.3 fL Normal 9.0-12.7 [facility] Comment on above: Order Comment: Speci men Type: BLOOD SPECIMEN Ordering Facility: [facility] Address: [address] [place] [address] Performed By: #### 3 3762-6, 19530-1 #### [facility] CLIA [id number] [address] OF [facility] Platelets (Bld) [#/Vol] 223 10*3/uL Normal 150-400 [facility] Comment on above: Order Comment: Speci men Type: BLOOD SPECIMEN Ordering Facility: [facility] Address: [address] [place] [address] Performed By: #### 3 3762-6, 55489-6 #### [facility] CLIA [id number] [address] OF [facility] RBC (Bld) [#/Vol] 4.69 10*6/uL Normal 4.20-6.00 [facility] Comment on above: Order Comment: Speci men Type: BLOOD SPECIMEN Ordering Facility: [facility] Address: [address] [place] [address] Performed By: #### 3 3762-6, 11260-7 #### [facility] CLIA [id number] [address] [place] WBC (Bld) [#/Vol] 15.63 10*3/uL High 3.70-11.00 [facility] Comment on above: Order Comment: Speci men Type: BLOOD SPECIMEN Ordering Facility: [facility] Address: [address] [place] [address] Performed By: #### 3 3762-6, 64668-2 #### [facility] CLIA [id number] [address] [place] CONSULT PROGon 11-14-2023 CONSULT PROG HNO ID: [id number] Author: Jackie Paz RPh Service: Pharmacy Author Type: Pharmacist Type: Consult Progress Note Filed: 11/14/2023 9:40 AM Note Text: PHARMACY VANCOMYCIN DOSING NOTE Patient Name: Javier Dickson Admission Date: 11/13/2023 Date of Consult: 11/14/2023 Time of Consult: 9:39 AM Vancomycin therapy has been discontinued. Vancomycin level(s) have been discontinued: Yes. Pharmacy vancomycin dosing service will sign off. Thank you for allowing us to participate in this patient's care. Please contact pharmacy if there are questions. Jackie Paz RPh [phone] [facility] Comprehensive metabolic 2000 panelon 11-14-2023 Albumin [Mass/Vol] 3.8 g/dL Low 3.9-4.9 [facility] Comment on above: Order Comment: Meng blancas Type: BLOOD SPECIMENOrdering Facility: [facility] Address: [address] [place] [address] Performed By: #### 2 4323-8 ####[facility] [id number] [address] [place] OF [facility] ALP [Catalytic activity/Vol] 90 U/L Normal 38-113 [facility] Comment on above: Order Comment: Meng blancas Type: BLOOD SPECIMENOrdering Facility: [facility] Address: [address] [place] [address] Performed By: #### 2 4323-8 ####[facility] [id number] [address] STATES OF [facility] ALT With P-5'-P [Catalytic activity/Vol] 31 U/L Normal 10-54 [facility] Comment on above: Order Comment: Meng blancas Type: BLOOD SPECIMENOrdering Facility: [facility] Address: [address] [place] [address] Performed By: #### 2 4323-8 ####[facility] [id number] [address] [place] Anion gap [Moles/Vol] 9 mmol/L Normal 9-18 [facility] Comment on above: Order Comment: Speci men Type: BLOOD SPECIMENOrdering Facility: [facility] Address: [address] [place] [address] Performed By: #### 2 4323-8 ####[facility] [id number] [place] [address] [place] AST With P-5'-P [Catalytic activity/Vol] 23 U/L Normal 14-40 [facility] Comment on above: Order Comment: Speci men Type: BLOOD SPECIMENOrdering Facility: [facility] Address: [address] [place] [address] Performed By: #### 2 4323-8 ####[facility] [id number] [place] [address] [place] Bilirubin [Mass/Vol] 0.4 mg/dL Normal 0.2-1.3 [facility] Comment on above: Order Comment: Speci men Type: BLOOD SPECIMENOrdering Facility: [facility] Address: [address] [place] [address] Performed By: #### 2 4323-8 ####[facility] [id number] [place] [address] [place] Calcium [Mass/Vol] 9.0 mg/dL Normal 8.5-10.2 [facility] Comment on above: Order Comment: Speci men Type: BLOOD SPECIMENOrdering Facility: [facility] Address: [address] [place] [address] Performed By: #### 2 4323-8 ####[facility] [id number] [place] [address] [place] Chloride [Moles/Vol] 91 mmol/L Low 97-105 [facility] Comment on above: Order Comment: Speci men Type: BLOOD SPECIMENOrdering Facility: [facility] Address: [address] [place] [address] Performed By: #### 2 4323-8 ####[facility] [id number] [address] [place] CO2 [Moles/Vol] 34 mmol/L High 22-30 [facility] Comment on above: Order Comment: Speci men Type: BLOOD SPECIMENOrdering Facility: [facility] Address: [address] [place] [address] Performed By: #### 2 4323-8 ####[facility] [id number] [address] [place] Creatinine [Mass/Vol] 1.41 mg/dL High 0.73-1.22 [facility] Comment on above: Order Comment: Speci men Type: BLOOD SPECIMENOrdering Facility: [facility] Address: [address] [place] [address] Performed By: #### 2 4323-8 ####[facility] [id number] [address] Creatinine and Glomerular filtration rate.predicted panel (S/P/Bld) 60 mL/min/1.73m??? Normal >=60 [facility] Comment on above: Order Comment: Speci men Type: BLOOD SPECIMENOrdering Facility: [facility] Address: [address] [place] [address] Result Comment: Ingrid mated Glomerular Filtration Rate (eGFR) is calculated using the 2020 CKD-EPI creatinine equation. This equation utilizes serum creatinine, sex, and age as parameters. The creatinine assay has traceable calibration to isotope dilution-mass spectrometry. Refer to KDIGO guidelines for clinical interpretation. In patients with unstable renal function, e.g. those with acute kidney injury, the eGFR may not accurately reflect actual GFR. Performed By: #### 2 4323-8 ####[facility] [id number] [address] [place] Glucose [Mass/Vol] 113 mg/dL High 74-99 [facility] Comment on above: Order Comment: Speci men Type: BLOOD SPECIMENOrdering Facility: [facility] Address: [address] [place] [address] Result Comment: The [place] Diabetes Association (ADA) provides guidance for cutoff values for fasting glucose and random glucose. The ADA defines fasting as no caloric intake for at least 8 hours. Fasting plasma glucose results between 100 to 125 mg/dL indicate increased risk for diabetes (prediabetes). Fasting plasma glucose results greater than or equal to 126 mg/dL meet the criteria for diagnosis of diabetes. In the absence of unequivocal hyperglycemia, results should be confirmed by repeat testing. In a patient with classic symptoms of hyperglycemia or hyperglycemic crisis, random plasma glucose results greater than or equal to 200 mg/dL meet the criteria for diagnosis of diabetes. Reference: Standards of Medical Care in Diabetes 2016, [place] Diabetes Association. Diabetes Care. 2016.39(Suppl 1). Performed By: #### 2 4323-8 ####[facility]ORY[facility]IA [id number] [place] [address] [place] Potassium [Moles/Vol] 4.7 mmol/L Normal 3.7-5.1 [facility] Comment on above: Order Comment: Speci men Type: BLOOD SPECIMENOrdering Facility: [facility] Address: [address] [place] [address] Performed By: #### 2 4323-8 ####[facility]ORYCLIA [id number] [place] [address] [place] Protein [Mass/Vol] 6.6 g/dL Normal 6.3-8.0 [facility] Comment on above: Order Comment: Meng blancas Type: BLOOD SPECIMENOrdering Facility: [facility] Address: [address] [place] [address] Performed By: #### 2 4323-8 ####[facility]ORYCLIA [id number] [place] [address] [place] Sodium [Moles/Vol] 134 mmol/L Low 136-144 [facility] Comment on above: Order Comment: Speci yonny Type: BLOOD SPECIMENOrdering Facility: [facility] Address: [address] [place] [address] Performed By: #### 2 4323-8 ####[facility]ORYCLIA [id number] [place] [address] [place] Urea nitrogen [Mass/Vol] 52 mg/dL High 9-24 [facility] Comment on above: Order Comment: Speci men Type: BLOOD SPECIMENOrdering Facility: [facility] Address: [place] [address] Performed By: #### 2 4323-8 ####[facility]ATORYCLIA [id number] [place] [address] [place] ECHOon 11-14-2023 Echocardiography Echocardiography Report: Transthoracic Echo [facility] Date of service: 11/14/2023 9:09:04 AM HOSPITAL Ordering physician: JILL SHIN Indication: Initial evaluation of known cardiomyopathy Technologist: Lloyd Schmid [facility] Interpreting physician: Mark Morgan MD PATIENT: Name: JAVIER DICKSON : 1970 Age: 53 years Gender: M Primary rhythm: sinus. Height: 182.90 cm BSA: 1.73 m Weight: 58.97 kg BMI: 17.6 kg/m Heart rate 97 bpm Blood pressure 99/71 mmHg Technically difficult exam due to body habitus. Color Doppler was utilized to interrogate the cardiac valves assessed and spectral Doppler was utilized to determine the flow velocities and pressure gradients reported in this exam. MEASUREMENTS: Value Indexed Normal Max aortic dimension 3.3 cm Ao < 3.8 LV ID (diastole) 4.3 cm (2D) 2.46 cm/m LV ID (systole) 3.0 cm (2D) 1.76 cm/m IVS, leaflet tips 0.9 cm (2D) Posterior wall thickness 0.8 cm (2D) Left ventricular mass 113 g (2D) 65 g/m LV stroke volume 51 ml (2D 4-ch.) LV end diastolic volume 75 ml (2D 4-ch.) 43.5 ml/m 34<=EDVi<75 LV end systolic volume 24 ml (2D 4-ch.) 14.0 ml/m Ejection Fraction 68 % (2D 4-ch.) EF > 52 FINDINGS: LEFT VENTRICLE The left ventricle is normal in size. Left ventricular systolic function is normal globally. Mitral annular lateral E/e': 5.6. Mitral annular septal E/e': 7.3. Wall Motion: All scored segments are normal. RIGHT VENTRICLE The right ventricle is mildly dilated. Right ventricular systolic function is normal. RV systolic tissue Doppler velocity is 10.0 cm/s. Tricuspid annular displacement is 1.6 cm. Estimated right ventricular systolic pressure is likely underestimated due to a weak or incomplete tricuspid regurgitation signal and is, at least, 34 mmHg consistent with normal pulmonary artery pressures. Estimated right atrial pressure is 3 mmHg based on IVC assessment. RIGHT ATRIUM Inferior Vena Cava: The inferior vena cava appears normal measuring 2.0 cm. The vessel decreases greater than 50 percent with inspiration. MITRAL VALVE The mitral valve leaflets are structurally normal. There is trace mitral valve regurgitation. The pressure half time is 40 msec. The peak mitral E/A ratio is 0.73. The average mitral E/e' ratio is 6.4. The mitral flow deceleration time is 138 msec. TRICUSPID VALVE The tricuspid valve leaflets are structurally normal. There is trace (trace - 1+) tricuspid valve regurgitation. AORTIC VALVE There is no aortic valve regurgitation. Tricuspid aortic valve. There is mild thickening. PULMONIC VALVE The pulmonic valve was not seen or not interrogated. There is trace pulmonic valve regurgitation. AORTA The visualized aorta is normal in size. Measurements - Mid ascending aorta 3.3 cm. INTERATRIAL SEPTUM There is no evidence of intracardiac shunting as detected by Doppler. PERICARDIUM There is no pericardial effusion. CONCLUSIONS: - Technically difficult exam due to body habitus. - Exam indication: Initial evaluation of known cardiomyopathy - The left ventricle is normal in size. Left ventricular systolic function is normal. EF = 68 5% (2D 4-ch.) - The right ventricle is mildly dilated. Right ventricular systolic function is normal. RV systolic tissue Doppler velocity is 10.0 cm/s. - There is no pericardial effusion. - The patient has not had a prior CC echocardiographic exam for comparison. * * * Final * * * [facility] [employer] [facility] Image : [id number] Normal [facility] ED NOTEon 11-14-2023 ED NOTE HNO ID: [id number] Author: Nenita Hughes RN Service: Emergency Medicine Author Type: Registered Nurse Type: ED Notes Filed: 11/14/2023 2:18 AM Note Text: Dr Chen notified patient continuing to pull off the BiPAP mask requesting food and water stating "he has not eaten or had anything to drink in days". RT at bedside. Okay per ICU to give patient a couple of ice chips. Normal [facility] Gas and Carbon monoxide pane l (BldV)on 11-14-2023 Base excess Calc (BldV) [Moles/Vol] 7 mmol/L High 0-2 [facility] Comment on above: Order Comment: Speci men Type: VENOUS BLOOD SPECIMEN Ordering Facility: [facility] Address: [address] [place] [address] Performed By: #### 2 4344-4 #### [facility] CLIA [id number] [address] [place] Body temperature 98.6 [degF] Normal [facility] Comment on above: Order Comment: Speci men Type: VENOUS BLOOD SPECIMEN Ordering Facility: [facility] Address: [address] [place] [address] Performed By: #### 2 4344-4 #### [facility] CLIA [id number] [address] [place] [address] [place] Calcium.ionized (BldV) [Mass/Vol] 1.08 mmol/L Normal 1.08-1.30 [facility] Comment on above: Order Comment: Speci men Type: VENOUS BLOOD SPECIMEN Ordering Facility: [facility] Address: [address] [place] [address] Performed By: #### 2 4344-4 #### [email or web address] CLIA [id number] [address] [place] [address] [place] Calcium.ionized adjusted to pH 7.4 (BldA) [Moles/Vol] 1.03 mmol/L Low 1.08-1.30 [facility] Comment on above: Order Comment: Speci men Type: VENOUS BLOOD SPECIMEN Ordering Facility: [facility] Address: [address] [place] [address] Performed By: #### 2 4344-4 #### [facility] CLIA [id number] [address] [place] [address] [place] Carboxyhemoglobin (BldV) [Mass fraction] 1.7 % Normal 0.0-2.0 [facility] Comment on above: Order Comment: Speci men Type: VENOUS BLOOD SPECIMEN Ordering Facility: [facility] Address: [address] [place] [address] Result Comment: Carb oxyhemoglobin Reference Range for Smokers: 2.0-8.0% Performed By: #### 2 4344-4 #### [facility] CLIA [id number] 1 [place] [address] [place] Chloride [Moles/Vol] 94 mmol/L Low 102-109 [facility] Comment on above: Order Comment: Speci men Type: VENOUS BLOOD SPECIMEN Ordering Facility: [facility] Address: [address] [place] [address] Performed By: #### 2 4344-4 #### [facility] CLIA [id number] [address] [place] CO2 (BldV) [Partial pressure] 72 mm[Hg] High 42-55 [facility] Comment on above: Order Comment: Speci men Type: VENOUS BLOOD SPECIMEN Ordering Facility: [facility] Address: [address] [place] [address] Performed By: #### 2 4344-4 #### [facility] CLIA [id number] [address] [place] FIO2 60 % Normal [facility] Comment on above: Order Comment: Speci men Type: VENOUS BLOOD SPECIMEN Ordering Facility: [facility] Address: [address] [place] [address] Performed By: #### 2 4344-4 #### [facility] CLIA [id number] 1 [place] [address] [place] Glucose [Mass/Vol] 117 mg/dL High 60-105 [facility] Comment on above: Order Comment: Speci men Type: VENOUS BLOOD SPECIMEN Ordering Facility: [facility] Address: [address] [place] [address] Performed By: #### 2 4344-4 #### [facility] CLIA [id number] [address] [place] HCO3 (Bld) [Moles/Vol] 36 mmol/L High 24-28 [facility] Comment on above: Order Comment: Speci men Type: VENOUS BLOOD SPECIMEN Ordering Facility: [facility] Address: [address] [place] [address] Performed By: #### 2 4344-4 #### [facility] CLIA [id number] [address] [place] Hematocrit (Bld) [Volume fraction] 44.1 % Normal 39.0-51.0 [facility] Comment on above: Order Comment: Speci men Type: VENOUS BLOOD SPECIMEN Ordering Facility: [facility] Address: [address] [place] [address] Performed By: #### 2 4344-4 #### [facility] CLIA [id number] [address] [place] Hemoglobin (Bld) [Mass/Vol] 14.4 g/dL Normal 13.0-17.0 [facility] Comment on above: Order Comment: Speci men Type: VENOUS BLOOD SPECIMEN Ordering Facility: [facility] Address: [address] [place] [address] Performed By: #### 2 4344-4 #### [facility] CLIA [id number] [address] [place] Lactate [Moles/Vol] 2.1 mmol/L Normal 0.5-2.2 [facility] Comment on above: Order Comment: Speci men Type: VENOUS BLOOD SPECIMEN Ordering Facility: [facility] Address: [address] [place] [address] Performed By: #### 2 4344-4 #### [facility] CLIA [id number] [address] [place] LITERS 60 Liters/min Normal [facility] Comment on above: Order Comment: Speci men Type: VENOUS BLOOD SPECIMEN Ordering Facility: [facility] Address: [address] [place] [address] Performed By: #### 2 4344-4 #### [facility] CLIA [id number] [address] [place] Methemoglobin (Bld) [Mass fraction] 0.1 % Normal 0.0-1.5 [facility] Comment on above: Order Comment: Speci men Type: VENOUS BLOOD SPECIMEN Ordering Facility: [facility] Address: [address] [place] [address] Performed By: #### 2 4344-4 #### [facility] CLIA [id number] [address] [place] O2 THERAPY Hi-Flow Nasal Cannula-Heated Normal [facility] Comment on above: Order Comment: Speci men Type: VENOUS BLOOD SPECIMEN Ordering Facility: [facility] Address: [address] [place] [address] Performed By: #### 2 4344-4 #### [facility] CLIA [id number] [address] [place] Oxygen (BldV) [Partial pressure] 63 mm[Hg] High 35-45 [facility] Comment on above: Order Comment: Speci men Type: VENOUS BLOOD SPECIMEN Ordering Facility: [facility] Address: [address] [place] [address] Performed By: #### 2 4344-4 #### [facility] CLIA [id number] [address] Oxygen saturation in Venous blood 89 % High 60-85 [facility] Comment on above: Order Comment: Speci men Type: VENOUS BLOOD SPECIMEN Ordering Facility: [facility] Address: [address] [place] [address] Performed By: #### 2 4344-4 #### [facility] CLIA [id number] [address] [place] Oxyhemoglobin (BldV) [Mass fraction] 88 % High 60-85 [facility] Comment on above: Order Comment: Speci men Type: VENOUS BLOOD SPECIMEN Ordering Facility: [facility] Address: [address] [place] [address] Performed By: #### 2 4344-4 #### [facility] CLIA [id number] 1 [place] [address] [place] pH (BldV) 7.32 [pH] Normal 7.32-7.42 [facility] Comment on above: Order Comment: Speci men Type: VENOUS BLOOD SPECIMEN Ordering Facility: [facility] Address: [address] [place] [address] Performed By: #### 2 4344-4 #### [facility] CLIA [id number] [address] [place] Potassium [Moles/Vol] 4.4 mmol/L Normal 3.5-5.0 [facility] Comment on above: Order Comment: Speci men Type: VENOUS BLOOD SPECIMEN Ordering Facility: [facility] Address: [address] [place] [address] Performed By: #### 2 4344-4 #### [facility] CLIA [id number] [address] [place] Sodium [Moles/Vol] 132 mmol/L Low 136-144 [facility] Comment on above: Order Comment: Speci men Type: VENOUS BLOOD SPECIMEN Ordering Facility: [facility] Address: [address] [place] [address] Performed By: #### 2 4344-4 #### [facility] CLIA [id number] [address] [place] [address] [place] Legionella Ag Ur Qlon 2023 Legionella sp Ag Ql (U) Negative Normal Negative [facility] Comment on above: Order Comment: Speci men Type: BLOOD SPECIMEN Ordering Facility: [facility] Address: [address] [place] [address] Result Comment: Pres umptive negative for L. pneumophila serogroup 1 antigen in urine, suggesting no recent or current infection. Infection due to Legionella cannot be ruled out since other serogroups and species may cause disease, antigen may not be present in urine in early infection, and the level of antigen present in the urine may be below the detection limit of the test. Performed By: #### 3 3762-6, 00204-3 #### [facility] CLIA [id number] [address] [place] STREPTOCOCCUS PNEUMONIAE AGo n 11-14-2023 STREPTOCOCCUS PNEUMONIAE AG STREP PNEUMO AG RESULT: Negative for Streptococcus pneumoniae antigen. Presumptive negative for pneumococcal pneumonia, suggesting no current or recent pneumococcal infection. Infection due to S.pneumoniae cannot be ruled out since the antigen present in the sample may be below the detection limit of the test. Normal [facility] Comment on above: Performed By: #### L [id number] #### [facility] CLIA [id number] [address] [place] [address] [place] Basic metabolic 2000 panelon 11-13-2023 Anion gap [Moles/Vol] 12 mmol/L Normal 9-18 [facility] Comment on above: Order Comment: Speci men Type: BLOOD SPECIMEN Ordering Facility: [facility] Address: [address] [place] [address] Performed By: #### 2 4321-2 #### [facility] CLIA [id number] [address] [place] [address] [place] Calcium [Mass/Vol] 8.0 mg/dL Low 8.5-10.2 [facility] Comment on above: Order Comment: Speci men Type: BLOOD SPECIMEN Ordering Facility: [facility] Address: [address] [place] [address] Performed By: #### 2 4321-2 #### [facility] CLIA [id number] [address] [place] [address] [place] [facility] Chloride [Moles/Vol] 95 mmol/L Low 97-105 [facility] Comment on above: Order Comment: Speci men Type: BLOOD SPECIMEN Ordering Facility: [facility] Address: [address] [place] [address] Performed By: #### 2 4321-2 #### [facility] CLIA [id number] 1 [place] [address] [place] CO2 [Moles/Vol] 28 mmol/L Normal 22-30 [facility] Comment on above: Order Comment: Speci men Type: BLOOD SPECIMEN Ordering Facility: [facility] Address: [address] [place] [address] Performed By: #### 2 4321-2 #### [facility] CLIA [id number] [address] STATES OF [facility] Creatinine [Mass/Vol] 0.90 mg/dL Normal 0.73-1.22 [facility] Comment on above: Order Comment: Meng blancas Type: BLOOD SPECIMEN Ordering Facility: [facility] Address: [address] [place] [address] Performed By: #### 2 4321-2 #### [facility] CLIA [id number] [address] Creatinine and Glomerular filtration rate.predicted panel (S/P/Bld) 103 mL/min/1.73m??? Normal >=60 [facility] Comment on above: Order Comment: Meng blancas Type: BLOOD SPECIMEN Ordering Facility: [facility] Address: [address] [place] [address] Result Comment: Ingrid mated Glomerular Filtration Rate (eGFR) is calculated using the 2020 CKD-EPI creatinine equation. This equation utilizes serum creatinine, sex, and age as parameters. The creatinine assay has traceable calibration to isotope dilution-mass spectrometry. Refer to KDIGO guidelines for clinical interpretation. In patients with unstable renal function, e.g. those with acute kidney injury, the eGFR may not accurately reflect actual GFR. Performed By: #### 2 4321-2 #### [facility] CLIA [id number] [address] OF [facility] Glucose [Mass/Vol] 104 mg/dL High 74-99 [facility] Comment on above: Order Comment: Meng blancas Type: BLOOD SPECIMEN Ordering Facility: [facility] Address: [address] [place] [address] Result Comment: The [place] Diabetes Association (ADA) provides guidance for cutoff values for fasting glucose and random glucose. The ADA defines fasting as no caloric intake for at least 8 hours. Fasting plasma glucose results between 100 to 125 mg/dL indicate increased risk for diabetes (prediabetes). Fasting plasma glucose results greater than or equal to 126 mg/dL meet the criteria for diagnosis of diabetes. In the absence of unequivocal hyperglycemia, results should be confirmed by repeat testing. In a patient with classic symptoms of hyperglycemia or hyperglycemic crisis, random plasma glucose results greater than or equal to 200 mg/dL meet the criteria for diagnosis of diabetes. Reference: Standards of Medical Care in Diabetes 2016, [place] Diabetes Association. Diabetes Care. 2016.39(Suppl 1). Performed By: #### 2 4321-2 #### [facility] CLIA [id number] [address] STATES OF [facility] Potassium [Moles/Vol] 4.7 mmol/L Normal 3.7-5.1 [facility] Comment on above: Order Comment: Speci men Type: BLOOD SPECIMEN Ordering Facility: [facility] Address: [address] [place] [address] Performed By: #### 2 4321-2 #### [facility] CLIA [id number] [address] STATES [facility] Sodium [Moles/Vol] 135 mmol/L Low 136-144 [facility] Comment on above: Order Comment: Speci men Type: BLOOD SPECIMEN Ordering Facility: [facility] Address: [address] [place] [address] Performed By: #### 2 4321-2 #### [facility] CLIA [id number] [address] STATES [facility] Urea nitrogen [Mass/Vol] 35 mg/dL High 9-24 [facility] Comment on above: Order Comment: Speci men Type: BLOOD SPECIMEN Ordering Facility: [facility] Address: [address] [place] [address] Performed By: #### 2 4321-2 #### [facility] CLIA [id number] [address] [place] CBC W Auto Differential pane l (Bld)on 11-13-2023 Basophils (Bld) [#/Vol] 0.04 10*3/uL Normal <0.11 [facility] Comment on above: Order Comment: Speci men Type: BLOOD SPECIMEN Ordering Facility: [facility] Address: [address] [place] [address] Performed By: #### 3 3762-, 86307-7 #### [facility] CLIA [id number] [address] [place] Basophils/100 WBC (Bld) 0.3 % Normal [facility] Comment on above: Order Comment: Speci men Type: BLOOD SPECIMEN Ordering Facility: [facility] Address: [address] [place] [address] Performed By: #### 3 3762-6, 92311-4 #### [facility] CLIA [id number] [address] [place] Differential cell count method Nom (Bld) Auto Normal [facility] Comment on above: Order Comment: Speci men Type: BLOOD SPECIMEN Ordering Facility: [facility] Address: [address] [place] [address] Performed By: #### 3 376-6, 07350-7 #### [facility] CLIA [id number] [address] [place] Eosinophils (Bld) [#/Vol] 10*3/uL Normal <0.46 [facility] Comment on above: Order Comment: Speci men Type: BLOOD SPECIMEN Ordering Facility: [facility] Address: [address] [place] [address] Performed By: #### 3 3766, #### [facility] CLIA [id number] [address] Eosinophils/100 WBC (Bld) 0.0 % Normal [facility] Comment on above: Order Comment: Speci men Type: BLOOD SPECIMEN Ordering Facility: [facility] Address: [address] [place] [address] Performed By: #### 3 3762-6, 94323-0 #### [facility] CLIA [id number] [address] Erythrocyte distribution width (RBC) [Ratio] 12.7 % Normal 11.5-15.0 [facility] Comment on above: Order Comment: Speci men Type: BLOOD SPECIMEN Ordering Facility: [facility] Address: [address] [place] [address] Performed By: #### 3 3762-6, 69967-6 #### [facility] CLIA [id number] [address] [place] Hematocrit (Bld) [Volume fraction] 52.4 % High 39.0-51.0 [facility] Comment on above: Order Comment: Speci men Type: BLOOD SPECIMEN Ordering Facility: [facility] Address: [address] [place] [address] Performed By: #### 3 376-6, 33551-9 #### [facility] CLIA [id number] [address] [place] Hemoglobin (Bld) [Mass/Vol] 16.6 g/dL Normal 13.0-17.0 [facility] Comment on above: Order Comment: Speci men Type: BLOOD SPECIMEN Ordering Facility: [facility] Address: [address] [place] [address] Performed By: #### 3 3766, 56108-4 #### [facility] CLIA [id number] [address] [place] Immature granulocytes (Bld) [#/Vol] 0.09 10*3/uL Normal <0.10 [facility] Comment on above: Order Comment: Speci men Type: BLOOD SPECIMEN Ordering Facility: [facility] Address: [address] [place] [address] Performed By: #### 3 3766, 22247-2 #### [facility] CLIA [id number] [address] [place] Immature granulocytes/100 WBC (Bld) 0.6 % Normal [facility] Comment on above: Order Comment: Speci men Type: BLOOD SPECIMEN Ordering Facility: [facility] Address: [address] [place] [address] Performed By: #### 3 3762-6, 63863-4 #### [facility] CLIA [id number] [address] [place] Lymphocytes (Bld) [#/Vol] 0.82 10*3/uL Low 1.00-4.00 [facility] Comment on above: Order Comment: Speci men Type: BLOOD SPECIMEN Ordering Facility: [facility] Address: [address] [place] [address] Performed By: #### 3 3762-6, 79825-3 #### [facility] CLIA [id number] [address] Lymphocytes/100 WBC (Bld) 5.6 % Normal [facility] Comment on above: Order Comment: Speci men Type: BLOOD SPECIMEN Ordering Facility: [facility] Address: [address] [place] [address] Performed By: #### 3 3762-6, 37582-2 #### [facility] CLIA [id number] [address] STATES OF [facility] MCH (RBC) [Entitic mass] 31.2 pg Normal 26.0-34.0 [facility] Comment on above: Order Comment: Speci men Type: BLOOD SPECIMEN Ordering Facility: [facility] Address: [address] [place] [address] Performed By: #### 3 3762-6, 72009-1 #### [facility] CLIA [id number] [address] MCHC (RBC) [Mass/Vol] 31.7 g/dL Normal 30.5-36.0 [facility] Comment on above: Order Comment: Speci men Type: BLOOD SPECIMEN Ordering Facility: [facility] Address: [address] [place] [address] Performed By: #### 3 3762-6, 26662-8 #### [facility] CLIA [id number] [address] MCV (RBC) [Entitic vol] 98.5 fL Normal 80.0-100.0 [facility] Comment on above: Order Comment: Speci men Type: BLOOD SPECIMEN Ordering Facility: [facility] Address: [address] [place] [address] Performed By: #### 3 3762-6, 11810-8 #### [facility] CLIA [id number] [address] [place] Monocytes (Bld) [#/Vol] 1.22 10*3/uL High <0.87 [facility] Comment on above: Order Comment: Speci men Type: BLOOD SPECIMEN Ordering Facility: [facility] Address: [address] [place] [address] Performed By: #### 3 3762-6, 75170-0 #### [facility] CLIA [id number] [address] [place] Monocytes/100 WBC (Bld) 8.4 % Normal [facility] Comment on above: Order Comment: Speci men Type: BLOOD SPECIMEN Ordering Facility: [facility] Address: [address] [place] [address] Performed By: #### 3 3766, 61113-8 #### [facility] CLIA [id number] [address] [place] Neutrophils (Bld) [#/Vol] 12.39 10*3/uL High 1.45-7.50 [facility] Comment on above: Order Comment: Speci men Type: BLOOD SPECIMEN Ordering Facility: [facility] Address: [address] [place] [address] Performed By: #### 3 3762-6, 84850-4 #### [facility] CLIA [id number] [address] [place] Neutrophils/100 WBC (Bld) 85.1 % Normal [facility] Comment on above: Order Comment: Speci men Type: BLOOD SPECIMEN Ordering Facility: [facility] Address: [address] [place] [address] Performed By: #### 3 3762-6, 16654-7 #### [facility] CLIA [id number] [address] [place] Nucleated RBC (Bld) [#/Vol] 10*3/uL Normal <0.01 [facility] Comment on above: Order Comment: Speci men Type: BLOOD SPECIMEN Ordering Facility: [facility] Address: [address] [place] [address] Performed By: #### 3 3762-6, 28969-5 #### [email or web address] CLIA [id number] [address] Nucleated RBC/100 WBC (Bld) [Ratio] 0.0 /[address] [facility] Comment on above: Order Comment: Speci men Type: BLOOD SPECIMEN Ordering Facility: [facility] Address: [address] [place] [address] Performed By: #### 3 3762-6, 03056-3 #### [email or web address] CLIA [id number] [address] Platelet mean volume (Bld) [Entitic vol] 9.8 fL Normal 9.0-12.7 [facility] Comment on above: Order Comment: Speci men Type: BLOOD SPECIMEN Ordering Facility: [facility] Address: [address] [place] [address] Performed By: #### 3 3762-6, 29430-3 #### [facility] CLIA [id number] [address] [place] Platelets (Bld) [#/Vol] 262 10*3/uL Normal 150-400 [facility] Comment on above: Order Comment: Speci men Type: BLOOD SPECIMEN Ordering Facility: [facility] Address: [address] [place] [address] Performed By: #### 3 3762-6, 40774-5 #### [facility] CLIA [id number] [address] [place] RBC (Bld) [#/Vol] 5.32 10*6/uL Normal 4.20-6.00 [facility] Comment on above: Order Comment: Speci men Type: BLOOD SPECIMEN Ordering Facility: [facility] Address: [address] [place] [address] Performed By: #### 3 3762-6, 16829-2 #### [facility] CLIA [id number] 1 [place] [address] [place] WBC (Bld[place] [#/Vol] 14.56 10*3/uL High 3.70-11.00 [facility] Comment on above: Order Comment: Speci men Type: BLOOD SPECIMEN Ordering Facility: [facility] Address: [address] [place] [address] [place] [address] Performed By: #### 3 3762-6, 24902-3 #### [facility] CLIA [id number] 1 [place] [address] [facility] [place] CONSULT PROGon 11-13-2023 CONSULT PROG HNO ID: [id number] Author: Daxa Gómez RPh Service: Pharmacy Author Type: Pharmacist Type: Consult Progress Note Filed: 11/13/2023 9:08 PM Note Text: PHARMACY VANCOMYCIN DOSING NOTE Patient Name: Javier Dickson Admission Date: 11/13/2023 Date of Consult: 11/13/2023 Time of Consult: 8:55 PM Indication: Pneumonia Goal Range: 15-20 mcg/mL RECOMMENDATIONS/PLAN: Pharmacy consulted for vancomycin dosing for Javier Dickson, a 53 year old male. 1. Patient is currently ordered Vancomycin 750 mg IV q24h. Today is day 1 of therapy. 2. No vancomycin level has been drawn for this dosing regimen. 3. Will adjust vancomycin to 750 mg with a dosing interval of q12h. 4. The next vancomycin level has been ordered for 11/15/22 @ 1999 (Completed) 5. S. aureus nasal PCR swab ordered - positive for MRSA Patient's scr appears to be at baseline although there is limited data. Will dose 15 mg/kg q12h given pt's renal function and age. We will follow patient renal function, vancomycin levels and doses with you during the course of therapy. Additional recommendations will appear in follow up notes. If you have any questions, please [place] [phone]. Age: [age] year old Allergies: ALLERGIES No Known Allergies Last 3 Encounter Wt Readings: Date: Wt: 11/13/2023 59 kg (130 lb) 01/10/2021 72.5 kg (159 lb 13.3 oz) 06/21/2020 68 kg (150 lb) Last 1 Encounter Ht Readings: Date: Ht: 11/13/2023 182.9 cm (6') CrCl: 80.1 mL/min Temp (24hrs), Av.4 ?C (97.6 ?F), Min:36.4 ?C (97.6 ?F), Max:36.4 ?C (97.6 ?F) - Current Temp: 36.4 ?C (97.6 ?F) Labs BUN (mg/dL) Date Value 11/13/2023 35 (H) 11/13/2023 31 (H) 01/10/2021 10 Creatinine (mg/dL) Date Value 11/13/2023 0.90 11/13/2023 1.15 01/10/2021 0.76 WBC Date Value 11/13/2023 14.56 k/uL (H) 01/10/2021 7.07 k/uL 06/21/2020 6.63 thou/cmm Vancomycin Levels: No results found for: GISELLA Gómez, [facility] Normal [facility] Comprehensive metabolic 2000 panelon 11-13-2023 Albumin [Mass/Vol] 4.4 g/dL Normal 3.9-4.9 [facility] Comment on above: Order Comment: Speci men Type: BLOOD SPECIMENOrdering Facility: [facility] Address: [address] [place] [address] Performed By: #### 3 3762-6, 64071-8 ####[facility] [id number] [address] STATES OF [facility] ALP [Catalytic activity/Vol] 114 U/L High 38-113 [facility] Comment on above: Order Comment: Speci men Type: BLOOD SPECIMENOrdering Facility: [facility] Address: [address] [place] [address] Performed By: #### 3 3762-6, 89863-0 ####[facility] [id number] [address] [place] ALT With P-5'-P [Catalytic activity/Vol] 46 U/L Normal 10-54 [facility] Comment on above: Order Comment: Speci men Type: BLOOD SPECIMENOrdering Facility: [facility] Address: [address] [place] [address] Performed By: #### 3 3762-6, ####[facility] [id number] [address] STATES OF [facility] Anion gap [Moles/Vol] 14 mmol/L Normal 9-18 [facility] Comment on above: Order Comment: Speci men Type: BLOOD SPECIMENOrdering Facility: [facility] Address: [address] [place] [address] Performed By: #### 3 3762-6, ####[facility] [id number] [address] [place] AST With P-5'-P [Catalytic activity/Vol] 42 U/L High 14-40 [facility] Comment on above: Order Comment: Speci men Type: BLOOD SPECIMENOrdering Facility: [facility] Address: [address] [place] [address] Performed By: #### 3 3762-6, ####[facility] [id number] [address] [place] Bilirubin [Mass/Vol] 0.5 mg/dL Normal 0.2-1.3 [facility] Comment on above: Order Comment: Speci men Type: BLOOD SPECIMENOrdering Facility: [facility] Address: [address] [place] [address] Performed By: #### 3 3762-6, ####[facility] [id number] [address] [place] Calcium [Mass/Vol] 9.1 mg/dL Normal 8.5-10.2 [facility] Comment on above: Order Comment: Speci men Type: BLOOD SPECIMENOrdering Facility: [facility] Address: [address] [place] [address] Performed By: #### 3 3762-6, 40932-2 ####[facility]ORYCLIA [id number] [place], [place] [address] [place] [address] [place] OF [facility] Chloride [Moles/Vol] 92 mmol/L Low 97-105 [facility] Comment on above: Order Comment: Speci men Type: BLOOD SPECIMENOrdering Facility: [facility] Address: [address] [place] [address] Performed By: #### 3 3762-6, 31655-7 ####[facility]ORYCLIA [id number] [place] [id number] [facility] CO2 [Moles/Vol] 31 mmol/L High 22-30 [facility] Comment on above: Order Comment: Speci men Type: BLOOD SPECIMENOrdering Facility: [facility] Address: [address] [place] [address] Performed By: #### 3 3762-6, 78308-3 ####[facility]ORYCLIA [id number] [address] OF [facility] Creatinine [Mass/Vol] 1.15 mg/dL Normal 0.73-1.22 [facility] Comment on above: Order Comment: Speci men Type: BLOOD SPECIMENOrdering Facility: [facility] Address: [address] [place] [address] Performed By: #### 3 3762-6, 39648-9 ####[facility]ORYCLIA [id number] [address] Creatinine and Glomerular filtration rate.predicted panel (S/P/Bld) 77 mL/min/1.73m??? Normal >=60 [facility] Comment on above: Order Comment: Speci men Type: BLOOD SPECIMENOrdering Facility: [facility] Address: [address] [place] [address] Result Comment: Ingrid mated Glomerular Filtration Rate (eGFR) is calculated using the 2020 CKD-EPI creatinine equation. This equation utilizes serum creatinine, sex, and age as parameters. The creatinine assay has traceable calibration to isotope dilution-mass spectrometry. Refer to KDIGO guidelines for clinical interpretation. In patients with unstable renal function, e.g. those with acute kidney injury, the eGFR may not accurately reflect actual GFR. Performed By: #### 3 3762-6, 15950-6 ####[facility]ORYCLIA [id number] [place] [address] [place] Glucose [Mass/Vol] 134 mg/dL High 74-99 [facility] Comment on above: Order Comment: Meng yonny Type: BLOOD SPECIMENOrdering Facility: [facility] Address: [address] [place] [address] Result Comment: The [place] Diabetes Association (ADA) provides guidance for cutoff values for fasting glucose and random glucose. The ADA defines fasting as no caloric intake for at least 8 hours. Fasting plasma glucose results between 100 to 125 mg/dL indicate increased risk for diabetes (prediabetes). Fasting plasma glucose results greater than or equal to 126 mg/dL meet the criteria for diagnosis of diabetes. In the absence of unequivocal hyperglycemia, results should be confirmed by repeat testing. In a patient with classic symptoms of hyperglycemia or hyperglycemic crisis, random plasma glucose results greater than or equal to 200 mg/dL meet the criteria for diagnosis of diabetes. Reference: Standards of Medical Care in Diabetes 2016, [place] Diabetes Association. Diabetes Care. 2016.39(Suppl 1). Performed By: #### 3 3762-6, 01799-6 ####[facility]ATORYCLIA [id number] [place] [address] [place] Potassium [Moles/Vol] 4.6 mmol/L Normal 3.7-5.1 [facility] Comment on above: Order Comment: Meng blancas Type: BLOOD SPECIMENOrdering Facility: [facility] Address: [address] [place] [address] Performed By: #### 3 3762-6, 50593-5 ####[facility]ATORYCLIA [id number] [place] [address] [place] Protein [Mass/Vol] 7.8 g/dL Normal 6.3-8.0 [facility] Comment on above: Order Comment: Meng blancas Type: BLOOD SPECIMENOrdering Facility: [facility] Address: [address] [place] [address] Performed By: #### 3 3762-6, 05810-3 ####[facility]ATORYCLIA [id number] [place] [address] [facility] Sodium [Moles/Vol] 137 mmol/L Normal 136-144 [facility] Comment on above: Order Comment: Speci men Type: BLOOD SPECIMENOrdering Facility: [facility] Address: [address] [place] [address] Performed By: #### 3 3762-6, 98162-6 ####[facility]ORYCLIA [id number] [place] [id number] [facility] Urea nitrogen [Mass/Vol] 31 mg/dL High 9-24 [facility] Comment on above: Order Comment: Speci men Type: BLOOD SPECIMENOrdering Facility: [facility] Address: [address] [place] [address] Performed By: #### 3 3762-6, 89653-3 ####[facility]ORYCLIA [id number] [place] [id number] [facility] ECG COMPLETEon 11-13-2023 ECG COMPLETE Ventricular Rate : 1 03 BPM Atrial Rate : 103 BPM P-R Interval : 140 ms QRS Duration : 88 ms Q-T Interval : 358 ms QTC Calculation(Bazett) : 468 ms Calculated P Phoenix : 76 degrees Calculated R [place] : -77 degrees Calculated T Phoenix : 71 degrees SINUS TACHYCARDIA WITH FUSION COMPLEXES PULMONARY DISEASE PATTERN LEFT ANTERIOR FASCICULAR BLOCK INFERIOR INFARCT , AGE UNDETERMINED ABNORMAL ECG NO PREVIOUS ECGS AVAILABLE Confirmed by MD ERVIN THOMAS ([id number]) on 11/27/2023 9:05:12 PM NAME : JAVIER DICKSON PID : [id number] : 1970 Gender : Male Race : ORD : [id number] Procedure Date : Nov 13 2023 05:11:14 Edit Date : Nov 27 2023 21:05:13 Diagnosis: SINUS TACHYCARDIA WITH FUSION COMPLEXES PULMONARY DISEASE PATTERN LEFT ANTERIOR FASCICULAR BLOCK INFERIOR INFARCT , AGE UNDETERMINED ABNORMAL ECG NO PREVIOUS ECGS AVAILABLE Confirmed by MD ERVIN THOMAS ([id number]) on 11/27/2023 9:05:12 PM Test Reason : Chest Pain Location : 4 : AKED 29 Overread By : MD ERVIN THOMAS Edited By : MD ERVIN THOMAS Referred By : , Acquired by : JARET TALAMANTES [facility] ED NOTEon 11-13-2023 ED NOTE HNO ID: [id number] Author: Kenan Smiley RN Service: Emergency Medicine Author Type: Registered Nurse Type: ED Notes Filed: 11/13/2023 5:07 PM Note Text: Dr Varma notified of pt's last VBG results. [facility] ED NOTE HNO ID: [id number] Author: Kenan Smiley RN Service: Emergency Medicine Author Type: Registered Nurse Type: ED Notes Filed: 11/13/2023 3:14 PM Note Text: Pt assisted with urinal, tolerated well. Pt insisted upon standing. This RN stood by for pt safety. [facility] ED NOTE HNO ID: [id number] Author: Brendan Loja RN Service: Emergency Medicine Author Type: Registered Nurse Type: ED Notes Filed: 11/13/2023 7:03 AM Note Text: Report given to kenan SPAIN [facility] ED NOTE HNO ID: [id number] Author: Jaret Talamantes RN Service: Emergency Medicine Author Type: Registered Nurse Type: ED Notes Filed: 11/13/2023 6:22 AM Note Text: This RN remained at bedside w patient while BiPap was placed, pt initially fighting trying to pull mask off. Given blankets and encouraged to relax. Report given to Ben SPAIN. [facility] ED NOTE HNO ID: [id number] Author: Brendan Loja RN Service: Emergency Medicine Author Type: Registered Nurse Type: ED Notes Filed: 11/13/2023 6:16 AM Note Text: Pt moved to ed room 3. Xray bedside. Pt on continuous cardiac and spo2% monitoring. Awaiting report from current primary nurse [facility] ED NOTE HNO ID: [id number] Author: Jaret Talamantes RN Service: Emergency Medicine Author Type: Registered Nurse Type: ED Notes Filed: 11/13/2023 6:02 AM Note Text: XR called for portable [facility] ED NOTE HNO ID: [id number] Author: Jaret Talamantes RN Service: Emergency Medicine Author Type: Registered Nurse Type: ED Notes Filed: 11/13/2023 6:02 AM Note Text: RTs at bedside notified RN that pt was less responsive and belly breathing. Dr. Weller and Vinnie to bedside Pt responds to loud verbal / painful stimuli with rambling incoherent words. [facility] ED NOTE HNO ID: [id number] Author: Jaret Talamantes, RN Service: Emergency Medicine Author Type: Registered Nurse Type: ED Notes Filed: 11/13/2023 5:40 AM Note Text: Dr Quinonez at bedside for USIV access [facility] ED NOTE HNO ID: [id number] Author: Jaret Talamantes, RN Service: Emergency Medicine Author Type: Registered Nurse Type: ED Notes Filed: 11/13/2023 5:29 AM Note Text: RT notified for treaments [facility] ED NOTE HNO ID: [id number] Author: Jaret Talamantes RN Service: Emergency Medicine Author Type: Registered Nurse Type: ED Notes Filed: 11/13/2023 5:25 AM Note Text: IV access attempted x3 RNs x4 total unsuccessfully. Provider notified for USI [facility] ED NOTE HNO ID: [id number] Author: Jaret Talamantes RN Service: Emergency Medicine Author Type: Registered Nurse Type: ED Notes Filed: 11/13/2023 4:56 AM Note Text: RT notified of patient [facility] ED NOTE HNO ID: [id number] Author: Clint Alvarado RN Service: ? Author Type: Registered Nurse Type: ED Notes Filed: 11/13/2023 4:34 AM Note Text: Bed: [facility] Expected date: Expected time: Means of arrival: Comments: carina [facility] ED PROV NOTEon 11-13-2023 ED PROV NOTE HNO ID: [id number] Author: Danilo Mcgee MD Service: Emergency Medicine Author Type: Resident Type: ED Provider Notes Filed: 11/13/2023 9:33 AM Note Text: Attestation signed by Dianna Ponce DO at 11/13/2023 10:53 AM Attending Note I evaluated the patient and personally participated in the carlos components. I agree with the resident's findings and plan as documented and have discussed the case and management of the patient's care with the resident. VBG with mild improvement. Patient reassessed on a number of occasions that he is awake and arouses easily to verbal stimuli. He had brief episode agitation but he is able to be verbally de-escalated. Patient seen and evaluated by the MICU team and they agreed with admission. Patient in critical, but stable condition over the course of his ED stay and admitted in the same. Signature: Dianna Ponce DO Date: 11/13/2023 Time: 10:52 AM ED Resident Continuation of Care Note November 13, 2023 9:33 AM Javier Dickson was endorsed to me by Dr. Weller pending MICU consult and repeat VBG. Repeat VBG does show slightly improving CO2 with similar acidosis. Patient's mental status continues to be mildly altered however is tolerating BiPAP well. Do not feel that patient can be trialed off BiPAP at this time and MICU agrees and will take the patient to their service. MD BJORN Encarnacion STEPHEN 11/13/23 0933 DIANNA PONCE 11/13/[address] [facility] ED PROV NOTE HNO ID: [id number] Author: JOHN BIRMINGHAM MD Service: Emergency Medicine Author Type: Resident Type: ED Provider Notes Filed: 12/18/2023 12:52 Note Text: Attestation signed by John Birmingham MD at 12/18/2023 12:52 PM Attending Note I personally saw the patient and performed a substantive portion of the visit including all aspects of the medical decision making. I supervised and was present for carlos portions of any procedures performed by the resident. I agree with the resident's findings and plan with the following revisions and/or additions: Critical Care I spent a total of 30 minutes of critical care time in the evaluation and management of this patient. This was necessary to treat or prevent deterioration of the following condition(s): Respiratory impairment and RESIDENT PHYSICIAN impairment, which the patient had and/or has a high probability of suddenly developing. The patient received BiPAP, Oxygen, and Consultation by MICU during the time that critical care was provided.I discussed the plan of care with the RESIDENT and agree with the findings documented. Critical care time excludes separately billed procedures. John Birmingham MD Signature: John Birmingham MD ED Provider Note Patient Name: Javier Dickson : 1970 SERVICE DATE: 11/13/23 History Patient presents with: Shortness of Breath: Pt arrives via AFD from home for worsening shortness of breath starting this evening. 81% on EMS arrival, placed on 6L NC via EMS, rebounded to 92%, given 2 Duonebs with marked improvement. Difficult to obtain pulseox, ear probe 94% on 6L NC. AANDO3, GCS 14, difficult historian, rambling speech, denies drugs or ETOH. Hx COPD, no home O2 Patient is a 53-year-old male with a history of COPD who called EMS for shortness of breath. He states it has been a couple days, EMS found 81% on room air. Placed on 6 L nasal cannula and gave him 2 DuoNebs. He improved to 92%. Endorses a productive cough. Patient is a difficult historian, alert and oriented x 3 but has rambling speech. Denies drug or alcohol use. Does not wear oxygen at home. His extensive smoking history. Denies fever, chills, abdominal pain, diarrhea, vomiting, dysuria. Endorses chest pain and nausea. PAST MEDICAL HISTORY Diagnosis Date Bowel obstruction (HCC) COPD (chronic obstructive pulmonary disease) ([facility]) No past surgical history on file. FAMILY HISTORY Problem Relation Age of Onset No Known Problems Mother Heart disease No Family History Social History Tobacco Use Smoking status: Every Day Packs/day: 1 Types: Cigarettes Smokeless tobacco: Not on file Substance and Sexual Activity Alcohol use: Not Currently Drug use: Not on file Sexual activity: Not on file ALLERGIES No Known Allergies Review of Systems Constitutional: Negative for activity change, chills, fatigue and fever. HENT: Negative for congestion, rhinorrhea and sore throat. Eyes: Negative for pain and visual disturbance. Respiratory: Positive for cough (productive), shortness of breath and wheezing. Cardiovascular: Positive for chest pain ("sometimes"). Negative for palpitations and leg swelling. Gastrointestinal: Positive for nausea. Negative for abdominal pain, diarrhea and vomiting. Genitourinary: Negative for dysuria and hematuria. Musculoskeletal: Negative for arthralgias and myalgias. Skin: Negative for rash and wound. Neurological: Negative for syncope, weakness, light-headedness, numbness and headaches. Psychiatric/Behavioral : Negative for confusion and sleep disturbance. Physical Exam Vitals [11/13/23 0451] BP Pulse Temp Temp src Resp SpO2 Weight Height 139/71 (!) 102 36.4 ?C (97.6 ?F) -- (!) 28 95 % 59 kg (130 lb) 1.829 m (6') Physical Exam Constitutional: General: He is not in acute distress. Appearance: Normal appearance. He is underweight. He is ill-appearing. Interventions: Nasal cannula in place. HENT: Head: Normocephalic and atraumatic. Nose: Nose normal. Mouth/Throat: Mouth: Mucous membranes are moist. Pharynx: Oropharynx is clear. No oropharyngeal exudate. Eyes: General: Right eye: No discharge. Left eye: No discharge. Extraocular Movements: Extraocular movements intact. Conjunctiva/sclera: Conjunctivae normal. Cardiovascular: Rate and Rhythm: Regular rhythm. Tachycardia present. Pulses: Normal pulses. Heart sounds: Normal heart sounds. Pulmonary: Effort: Pulmonary effort is normal. Tachypnea present. No respiratory distress. Breath sounds: Wheezing (mild diffuse) and rhonchi present. Abdominal: General: Abdomen is flat. There is no distension. Palpations: Abdomen is soft. Tenderness: There is no abdominal tenderness. Musculoskeletal: General: No swelling or signs of injury. Normal r (more content not included)... Normal [facility] FLUABV+SARS-CoV-2+RSV Pnl Re sp EH+probeon 11-13-2023 FLUABV+SARS-CoV-2+RSV Pnl Resp EH+probe COVID 19 RESULT: Not detected The method used is RT-PCR or an equivalent NAAT method. Reference Range(the expected result in uninfected individuals): Not detected INFLUENZA A PCR: Not detected INFLUENZA B PCR: Not detected RSV PCR: Detected Abnormal [facility] Comment on above: Performed By: #### L [id number] #### [facility] CLIA [id number] [address] [place] [address] [place] Gas and Carbon monoxide pane l (BldV)on 11-13-2023 Base excess Calc (BldV) [Moles/Vol] 6 mmol/L High 0-2 [facility] Comment on above: Order Comment: Speci men Type: VENOUS BLOOD SPECIMENOrdering Facility: [facility] Address: [address] [place] [address] Performed By: #### 2 4344-4 ####[facility] LABORATORYCLIA [id number] [place] [address] [place] Body temperature 98.6 [degF] Normal [facility] Comment on above: Order Comment: Speci men Type: VENOUS BLOOD SPECIMENOrdering Facility: [facility] Address: [address] [place] [address] Performed By: #### 2 4344-4 ####[facility]ATORYCLIA [id number] [place] [address] [place] Calcium.ionized (BldV) [Mass/Vol] 1.13 mmol/L Normal 1.08-1.30 [facility] Comment on above: Order Comment: Speci men Type: VENOUS BLOOD SPECIMENOrdering Facility: [facility] Address: [address] [place] [address] Performed By: #### 2 4344-4 ####[facility]ATORYCLIA [id number] [place] [address] [place] Calcium.ionized adjusted to pH 7.4 (BldA) [Moles/Vol] 1.06 mmol/L Low 1.08-1.30 [facility] Comment on above: Order Comment: Speci men Type: VENOUS BLOOD SPECIMENOrdering Facility: [facility] Address: [address] [place] [address] Performed By: #### 2 4344-4 ####[facility]ATORYCLIA [id number] [address] [place] Carboxyhemoglobin (BldV) [Mass fraction] 1.6 % Normal 0.0-2.0 [facility] Comment on above: Order Comment: Speci men Type: VENOUS BLOOD SPECIMENOrdering Facility: [facility] Address: [address] [place] [address] Result Comment: Carb oxyhemoglobin Reference Range for Smokers: 2.0-8.0% Performed By: #### 2 4344-4 ####[facility] LABORATORYCLIA [id number] [place] [address] [place] Chloride [Moles/Vol] 96 mmol/L Low 102-109 [facility] Comment on above: Order Comment: Speci men Type: VENOUS BLOOD SPECIMENOrdering Facility: [facility] Address: [address] [place] [address] Performed By: #### 2 4344-4 ####[facility]ORATORYCLIA [id number] [place] [address] [place] CO2 (BldV) [Partial pressure] 79 mm[Hg] High 42-55 [facility] Comment on above: Order Comment: Speci men Type: VENOUS BLOOD SPECIMENOrdering Facility: [facility] Address: [address] [place] [address] Performed By: #### 2 4344-4 ####[facility] LABORATORYCLIA [id number] [place] [address] [place] Glucose [Mass/Vol] 141 mg/dL High 60-105 [facility] Comment on above: Order Comment: Speci men Type: VENOUS BLOOD SPECIMENOrdering Facility: [facility] Address: [address] [place] [address] Performed By: #### 2 4344-4 ####[facility]ATORYCLIA [id number] [place] [address] [place] HCO3 (Bld) [Moles/Vol] 36 mmol/L High 24-28 [facility] Comment on above: Order Comment: Speci men Type: VENOUS BLOOD SPECIMENOrdering Facility: [facility] Address: [address] [place] [address] Performed By: #### 2 4344-4 ####[facility]ORATORYCLIA [id number] [address] [place] Hematocrit (Bld) [Volume fraction] 49.1 % Normal 39.0-51.0 [facility] Comment on above: Order Comment: Speci men Type: VENOUS BLOOD SPECIMENOrdering Facility: [facility] Address: [address] [place] [address] Performed By: #### 2 4344-4 ####[facility]ORATORYCLIA [id number] [address] [place] Hemoglobin (Bld) [Mass/Vol] 16.0 g/dL Normal 13.0-17.0 [facility] Comment on above: Order Comment: Speci men Type: VENOUS BLOOD SPECIMENOrdering Facility: [facility] Address: [address] [place] [address] Performed By: #### 2 4344-4 ####[facility]ORATORYCLIA [id number] [place] [address] [place] Lactate [Moles/Vol] 3.0 mmol/L High 0.5-2.2 [facility] Comment on above: Order Comment: Speci men Type: VENOUS BLOOD SPECIMENOrdering Facility: [facility] Address: [address] [place] [address] Performed By: #### 2 4344-4 ####[facility]ATORYCLIA [id number] [address] [place] Methemoglobin (Bld) [Mass fraction] 1.1 % Normal 0.0-1.5 [facility] Comment on above: Order Comment: Speci men Type: VENOUS BLOOD SPECIMENOrdering Facility: [facility] Address: [address] [place] [address] Performed By: #### 2 4344-4 ####[facility]ATORYCLIA [id number] [address] [place] O2 THERAPY Positive Normal [facility] Comment on above: Order Comment: Speci men Type: VENOUS BLOOD SPECIMENOrdering Facility: [facility] Address: [address] [place] [address] Performed By: #### 2 4344-4 ####[facility]ORYCLIA [id number] [address] [place] Oxygen (BldV) [Partial pressure] 71 mm[Hg] High 35-45 [facility] Comment on above: Order Comment: Speci men Type: VENOUS BLOOD SPECIMENOrdering Facility: [facility] Address: [address] [place] [address] Performed By: #### 2 4344-4 ####[facility]ATORYCLIA [id number] [address] [place] Oxygen saturation in Venous blood 92 % High 60-85 [facility] Comment on above: Order Comment: Speci men Type: VENOUS BLOOD SPECIMENOrdering Facility: [facility] Address: [address] [place] [address] Performed By: #### 2 4344-4 ####[facility]ATORYCLIA [id number] [address] [place] Oxyhemoglobin (BldV) [Mass fraction] 89 % High 60-85 [facility] Comment on above: Order Comment: Speci men Type: VENOUS BLOOD SPECIMENOrdering Facility: [facility] Address: [address] [place] [address] Performed By: #### 2 4344-4 ####[facility]ORATORYCLIA [id number] [address] STATES OF [facility] pH (BldV) 7.28 [pH] Low 7.32-7.42 [facility] Comment on above: Order Comment: Speci men Type: VENOUS BLOOD SPECIMENOrdering Facility: [facility] Address: [address] [place] [address] Performed By: #### 2 4344-4 ####[facility]ATORYCLIA [id number] [address] [place] Potassium [Moles/Vol] 4.6 mmol/L Normal 3.5-5.0 [facility] Comment on above: Order Comment: Speci men Type: VENOUS BLOOD SPECIMENOrdering Facility: [facility] Address: [address] [place] [address] Performed By: #### 2 4344-4 ####[facility]ATORYCLIA [id number] [address] [place] Sodium [Moles/Vol] 137 mmol/L Normal 136-144 [facility] Comment on above: Order Comment: Speci men Type: VENOUS BLOOD SPECIMENOrdering Facility: [facility] Address: [address] [place] [address] Performed By: #### 2 4344-4 ####[facility]ORATORYCLIA [id number] [place] [address] [place] Base excess Calc (BldV) [Moles/Vol] 4 mmol/L High 0-2 [facility] Comment on above: Order Comment: Speci men Type: BLOOD SPECIMEN Ordering Facility: [facility] Address: [address] [place] [address] Performed By: #### 3 3762-6, 72599-4 #### [facility] CLIA [id number] [address] [place] Body temperature 98.6 [degF] Normal [facility] Comment on above: Order Comment: Speci men Type: BLOOD SPECIMEN Ordering Facility: [facility] Address: [address] [place] [address] Performed By: #### 3 3762-6, 72669-1 #### [facility] CLIA [id number] [address] OF [facility] Calcium.ionized (BldV) [Mass/Vol] 1.11 mmol/L Normal 1.08-1.30 [facility] Comment on above: Order Comment: Speci men Type: BLOOD SPECIMEN Ordering Facility: [facility] Address: [address] [place] [address] Performed By: #### 3 3762-6, 80076-6 #### [facility] CLIA [id number] [address] [place] [address] OF [facility] Calcium.ionized adjusted to pH 7.4 (BldA) [Moles/Vol] 1.02 mmol/L Low 1.08-1.30 [facility] Comment on above: Order Comment: Speci men Type: BLOOD SPECIMEN Ordering Facility: [facility] Address: [address] [place] [address] Performed By: #### 3 3762-6, 29190-2 #### [facility] CLIA [id number] [address] [place] [address] [place] OF [facility] Carboxyhemoglobin (BldV) [Mass fraction] 2.3 % High 0.0-2.0 [facility] Comment on above: Order Comment: Speci men Type: BLOOD SPECIMEN Ordering Facility: [facility] Address: [address] [place] [address] Result Comment: Carb oxyhemoglobin Reference Range for Smokers: 2.0-8.0% Performed By: #### 3 3762-6, 56322-4 #### [facility] CLIA [id number] [address] [place] [address] OF [facility] Chloride [Moles/Vol] 95 mmol/L Low 102-109 [facility] Comment on above: Order Comment: Speci men Type: BLOOD SPECIMEN Ordering Facility: [facility] Address: [address] [place] [address] Performed By: #### 3 3762-6, 57941-1 #### [facility] CLIA [id number] [address] [place] CO2 (BldV) [Partial pressure] 86 mm[Hg] High 42-55 [facility] Comment on above: Order Comment: Speci men Type: BLOOD SPECIMEN Ordering Facility: [facility] Address: [address] [place] [address] Performed By: #### 3 3762-6, 39364-0 #### [facility] CLIA [id number] [address] [place] Glucose [Mass/Vol] 143 mg/dL High 60-105 [facility] Comment on above: Order Comment: Speci men Type: BLOOD SPECIMEN Ordering Facility: [facility] Address: [address] [place] [address] Performed By: #### 3 3762-6, 88414-3 #### [facility] CLIA [id number] [address] [place] HCO3 (Bld) [Moles/Vol] 36 mmol/L High 24-28 [facility] Comment on above: Order Comment: Speci men Type: BLOOD SPECIMEN Ordering Facility: [facility] Address: [address] [place] [address] Performed By: #### 3 3762-6, 06904-8 #### [facility] CLIA [id number] [address] [place] Hematocrit (Bld) [Volume fraction] 49.8 % Normal 39.0-51.0 [facility] Comment on above: Order Comment: Speci men Type: BLOOD SPECIMEN Ordering Facility: [facility] Address: [address] [place] [address] Performed By: #### 3 3762-6, 47832-8 #### [facility] CLIA [id number] [address] [place] Hemoglobin (Bld) [Mass/Vol] 16.3 g/dL Normal 13.0-17.0 [facility] Comment on above: Order Comment: Speci men Type: BLOOD SPECIMEN Ordering Facility: [facility] Address: [address] [place] [address] Performed By: #### 3 3762-6, 81661-8 #### [facility] CLIA [id number] [address] [place] Lactate [Moles/Vol] 2.9 mmol/L High 0.5-2.2 [facility] Comment on above: Order Comment: Speci men Type: BLOOD SPECIMEN Ordering Facility: [facility] Address: [address] [place] [address] Performed By: #### 3 3762-6, 13776-3 #### [facility] CLIA [id number] [address] [place] Methemoglobin (Bld) [Mass fraction] 0.6 % Normal 0.0-1.5 [facility] Comment on above: Order Comment: Speci men Type: BLOOD SPECIMEN Ordering Facility: [facility] Address: [address] [place] [address] Performed By: #### 3 3762-6, 27403-2 #### [facility] CLIA [id number] [address] [place] O2 THERAPY Positive Normal [facility] Comment on above: Order Comment: Speci men Type: BLOOD SPECIMEN Ordering Facility: [facility] Address: [address] [place] [address] Performed By: #### 3 3762-6, 11262-6 #### [facility] CLIA [id number] [address] [place] Oxygen (BldV) [Partial pressure] 75 mm[Hg] High 35-45 [facility] Comment on above: Order Comment: Speci men Type: BLOOD SPECIMEN Ordering Facility: [facility] Address: [address] [place] [address] Performed By: #### 3 3762-6, 69128-7 #### [facility] CLIA [id number] [address] [place] [address] [place] Oxygen saturation in Venous blood 92 % High 60-85 [facility] Comment on above: Order Comment: Speci men Type: BLOOD SPECIMEN Ordering Facility: [facility] Address: [address] [place] [address] Performed By: #### 3 3762-6, 80469-9 #### [facility] CLIA [id number] [address] [place] [address] [place] Oxyhemoglobin (BldV) [Mass fraction] 89 % High 60-85 [facility] Comment on above: Order Comment: Speci men Type: BLOOD SPECIMEN Ordering Facility: [facility] Address: [address] [place] [address] Performed By: #### 3 3762-6, 83540-8 #### [facility] CLIA [id number] [address] [place] pH (BldV) 7.24 [pH] Low 7.32-7.42 [facility] Comment on above: Order Comment: Speci men Type: BLOOD SPECIMEN Ordering Facility: [facility] Address: [address] [place] [address] Performed By: #### 3 3762-6, 27567-9 #### [facility] CLIA [id number] [address] [place] Potassium [Moles/Vol] 4.9 mmol/L Normal 3.5-5.0 [facility] Comment on above: Order Comment: Speci men Type: BLOOD SPECIMEN Ordering Facility: [facility] Address: [address] [place] [address] Performed By: #### 3 3762-6, 94539-0 #### [facility] CLIA [id number] [address] [place] Sodium [Moles/Vol] 135 mmol/L Low 136-144 [facility] Comment on above: Order Comment: Speci men Type: BLOOD SPECIMEN Ordering Facility: [facility] Address: [address] [place] [address] Performed By: #### 3 3762-6, 58115-2 #### [facility] CLIA [id number] [address] STATES OF [facility] Base excess Calc (BldV) [Moles/Vol] 6 mmol/L High 0-2 [facility] Comment on above: Order Comment: Speci men Type: VENOUS BLOOD SPECIMENOrdering Facility: [facility] Address: [address] [place] [address] Performed By: #### 2 4344-4 ####[facility]ORYCLIA [id number] [address] STATES OF [facility] Body temperature 98.6 [degF] Normal [facility] Comment on above: Order Comment: Speci men Type: VENOUS BLOOD SPECIMENOrdering Facility: [facility] Address: [address] [place] [address] Performed By: #### 2 4344-4 ####[facility]ORYCLIA [id number] [address] Calcium.ionized (BldV) [Mass/Vol] 1.06 mmol/L Low 1.08-1.30 [facility] Comment on above: Order Comment: Speci men Type: VENOUS BLOOD SPECIMENOrdering Facility: [facility] Address: [address] [place] [address] Performed By: #### 2 4344-4 ####[facility]ATORYCLIA [id number] [address] STATES [facility] Calcium.ionized adjusted to pH 7.4 (BldA) [Moles/Vol] 0.97 mmol/L Low 1.08-1.30 [facility] Comment on above: Order Comment: Speci men Type: VENOUS BLOOD SPECIMENOrdering Facility: [facility] Address: [address] [place] [address] Performed By: #### 2 4344-4 ####[facility]ATORYCLIA [id number] [address] [place] Carboxyhemoglobin (BldV) [Mass fraction] 2.5 % High 0.0-2.0 [facility] Comment on above: Order Comment: Speci men Type: VENOUS BLOOD SPECIMENOrdering Facility: [facility] Address: [address] [place] [address] Result Comment: Carb oxyhemoglobin Reference Range for Smokers: 2.0-8.0% Performed By: #### 2 4344-4 ####[facility]ORATORYCLIA [id number] [place] [address] [place] Chloride [Moles/Vol] 95 mmol/L Low 102-109 [facility] Comment on above: Order Comment: Speci men Type: VENOUS BLOOD SPECIMENOrdering Facility: [facility] Address: [address] [place] [address] Performed By: #### 2 4344-4 ####[facility]ORYCLIA [id number] [place] [address] [place] CO2 (BldV) [Partial pressure] 88 mm[Hg] High 42-55 [facility] Comment on above: Order Comment: Speci men Type: VENOUS BLOOD SPECIMENOrdering Facility: [facility] Address: [address] [place] [address] Performed By: #### 2 4344-4 ####[facility]ORYCLIA [id number] [place] [address] [place] Glucose [Mass/Vol] 116 mg/dL High 60-105 [facility] Comment on above: Order Comment: Speci men Type: VENOUS BLOOD SPECIMENOrdering Facility: [facility] Address: [address] [place] [address] Performed By: #### 2 4344-4 ####[facility]ORYCLIA [id number] [place] [address] [place] HCO3 (Bld) [Moles/Vol] 37 mmol/L High 24-28 [facility] Comment on above: Order Comment: Speci men Type: VENOUS BLOOD SPECIMENOrdering Facility: [facility] Address: [address] [place] [address] Performed By: #### 2 4344-4 ####[facility]ORYCLIA [id number] [address] [place] Hematocrit (Bld) [Volume fraction] 47.1 % Normal 39.0-51.0 [facility] Comment on above: Order Comment: Speci men Type: VENOUS BLOOD SPECIMENOrdering Facility: [facility] Address: [address] [place] [address] Performed By: #### 2 4344-4 ####[facility]ATORYCLIA [id number] [address] [place] Hemoglobin (Bld) [Mass/Vol] 15.4 g/dL Normal 13.0-17.0 [facility] Comment on above: Order Comment: Speci men Type: VENOUS BLOOD SPECIMENOrdering Facility: [facility] Address: [address] [place] [address] Performed By: #### 2 4344-4 ####[facility]ORYCLIA [id number] [address] Lactate [Moles/Vol] 1.8 mmol/L Normal 0.5-2.2 [facility] Comment on above: Order Comment: Speci men Type: VENOUS BLOOD SPECIMENOrdering Facility: [facility] Address: [address] [place] [address] Performed By: #### 2 4344-4 ####[facility]ATORYCLIA [id number] [address] [place] Methemoglobin (Bld) [Mass fraction] 0.5 % Normal 0.0-1.5 [facility] Comment on above: Order Comment: Speci men Type: VENOUS BLOOD SPECIMENOrdering Facility: [facility] Address: [address] [place] [address] Performed By: #### 2 4344-4 ####[facility]ORYCLIA [id number] [address] [place] O2 THERAPY Positive Normal [facility] Comment on above: Order Comment: Speci men Type: VENOUS BLOOD SPECIMENOrdering Facility: [facility] Address: [address] [place] [address] Performed By: #### 2 4344-4 ####[facility]ORYCLIA [id number] [place] [id number] [place] Oxygen (BldV) [Partial pressure] 72 mm[Hg] High 35-45 [facility] Comment on above: Order Comment: Speci men Type: VENOUS BLOOD SPECIMENOrdering Facility: [facility] Address: [address] [place] [address] Performed By: #### 2 4344-4 ####[facility]ORYCLIA [id number] [address] [place] Oxygen saturation in Venous blood 92 % High 60-85 [facility] Comment on above: Order Comment: Speci men Type: VENOUS BLOOD SPECIMENOrdering Facility: [facility] Address: [address] [place] [address] Performed By: #### 2 4344-4 ####[facility]ORYCLIA [id number] [address] [place] Oxyhemoglobin (BldV) [Mass fraction] 89 % High 60-85 [facility] Comment on above: Order Comment: Speci men Type: VENOUS BLOOD SPECIMENOrdering Facility: [facility] Address: [address] [place] [address] Performed By: #### 2 4344-4 ####[facility]ORYCLIA [id number] [place] [address] [place] pH (BldV) 7.25 [pH] Low 7.32-7.42 [facility] Comment on above: Order Comment: Speci men Type: VENOUS BLOOD SPECIMENOrdering Facility: [facility] Address: [address] [place] [address] Performed By: #### 2 4344-4 ####[facility]ORYCLIA [id number] [place] [address] [place] Potassium [Moles/Vol] 7.3 mmol/L Critically high 3.5-5.0 [facility] Comment on above: Order Comment: Speci men Type: VENOUS BLOOD SPECIMENOrdering Facility: [facility] Address: [address] [place] [address] Performed By: #### 2 4344-4 ####[facility]ATORYCLIA [id number] [place] [address] [place] Sodium [Moles/Vol] 131 mmol/L Low 136-144 [facility] Comment on above: Order Comment: Meng blancas Type: VENOUS BLOOD SPECIMENOrdering Facility: [facility] Address: [address] [place] [address] Performed By: #### 2 4344-4 ####[facility]ATORYCLIA [id number] [place] [address] [place] HIGH SENSITIVITY TROPONIN T (INITIAL)on 11-13-2023 Troponin T.cardiac High sensitivity method [Mass/Vol] 57 ng/L High <12 [facility] Comment on above: Order Comment: Meng blancas Type: BLOOD SPECIMEN Ordering Facility: [facility] Address: [address] [place] [address] Result Comment: When assessing risk for acute coronary syndromes: In patients undergoing blood draw greater than or equal to 2 hours from symptom onset, with history of very low to moderate risk and non-ischemic ECG, an initial hs-Troponin T less than 12 ng/L AND a 1 hour delta hs-Troponin T less than 3 ng/L should be considered very low risk for 30 day MACE. Performed By: #### 3 3762-6, 15406-7 #### [facility] CLIA [id number] [address] [place] HIGH SENSITIVITY TROPONIN T (SECOND)on 11-13-2023 Troponin T.cardiac High sensitivity method [Mass/Vol] 54 ng/L High <12 [facility] Comment on above: Order Comment: Mneg blancas Type: BLOOD SPECIMEN Ordering Facility: [facility] Address: [address] [place] [address] Result Comment: When assessing risk for acute coronary syndromes: In patients undergoing blood draw greater than or equal to 2 hours from symptom onset, with history of very low to moderate risk and non-ischemic ECG, an initial hs-Troponin T less than 12 ng/L AND a 1 hour delta hs-Troponin T less than 3 ng/L should be considered very low risk for 30 day MACE. Performed By: #### 3 3762-6, 79083-3 #### [facility] CLIA [id number] [address] HIGH SENSITIVITY TROPONIN T (THIRD) 3 HRS AFTER INITIALon 11-13-2023 Troponin T.cardiac High sensitivity method [Mass/Vol] 54 ng/L High <12 [facility] Comment on above: Order Comment: Speci men Type: BLOOD SPECIMEN Ordering Facility: [facility] Address: [facility] [place] [address] Result Comment: When assessing risk for acute coronary syndromes: In patients undergoing blood draw greater than or equal to 2 hours from symptom onset, with history of very low to moderate risk and non-ischemic ECG, an initial hs-Troponin T less than 12 ng/L AND a 1 hour delta hs-Troponin T less than 3 ng/L should be considered very low risk for 30 day MACE. Performed By: #### L [id number] #### [facility] CLIA [id number] [address] HISTORY PHYSICALon HISTORY PHYSICAL HNO ID: [id number] Author: Jill hSin MD Service: Pulmonary Disease Author Type: Physician Type: HANDP Filed: 11/13/2023 3:44 PM Note Text: [facility] STAFF PHYSICIAN NOTE OF PERSONAL INVOLVEMENT IN CARE Attending Note I have personally performed a face to face assessment of the patient and have reviewed the PALLIATIVE CARE SPECIALIST/resident note and documentation. I personally participated in the carlos components and performed a substantive portion of the visit and collaborated. I have discussed the case and management of the patient's care. The following comments revise or confirm relevant carlos components of the note. Patient seen and examined. Labs, chest imaging, meds reviewed Last CT Chest - Impression Only No resulted procedures found. Current Facility-Administered Medications Medication Dose Route Frequency Provider Last Rate Last Admin doxycycline 100 mg in D5W 250 mL Vial-Bag (VIBRAMYCIN) 100 mg INTRAVENOUS q 12 H Victor Hugo Varma DO Stopped at 11/13/23 0923 NaCl 0.9% iv flush bag 20 mL INTRAVENOUS PRN Victor Hugo Varma DO 100 mL/hr at 11/13/23 0803 20 mL at 11/13/23 0803 furosemide 40 mg injection (LASIX) 40 mg INTRAVENOUS q 8 H Victor Hugo Varma DO 40 mg at 11/13/23 1124 potassium chloride ER 20-40 mEq tab(s) (KLOR-CON) 20-40 mEq ORAL/FEEDING TUBE PRN Victor Hugo Varma DO Or potassium chloride iv piggyback 20 mEq/100 mL 20 mEq INTRAVENOUS PRN Victor Hugo Varma DO magnesium sulfate iv piggyback in sterile water 2 g 50 mL 2 g INTRAVENOUS PRN Victor Hugo Varma DO phosphorus 500 mg tab(s) (K PHOS NEUTRAL) 500 mg ORAL/FEEDING TUBE PRN(NO DISPENSE) Victor Hugo Varma DO calcium gluconate iv piggyback 2 g in NaCl (iso-osmotic) 100 mL 2 g INTRAVENOUS PRN(NO DISPENSE) Victor Hugo Varma DO enoxaparin 40 mg injection (LOVENOX) 40 mg SUBCUTANEOUS q 24 HR Victor Hugo Varma DO ipratropium-albuterol 3 mL nebulizer solution (DUONEB) 3 mL INHALATION q 4 H while awake Victor Hugo Varma DO albuterol 2.5 mg /3 mL (0.083 %) 2.5 mg (PROVENTIL) 2.5 mg INHALATION q 4 H PRN Victor Hugo Varma DO [START ON 11/14/2023] cefTRIAXone iv piggyback 1 g in dextrose (iso-osmotic) 50 mL (ROCEPHIN) 1 g INTRAVENOUS q 24 H Victor Hugo Varma DO Current Outpatient Medications Medication Sig Dispense Refill acetaminophen (TYLENOL) 325 mg tablet Take 2 tablets by mouth every 6 hours as needed. amitriptyline (ELAVIL) 50 mg tablet Take 1 tablet by mouth daily at bedtime. 30 tablet 0 gabapentin (NEURONTIN) 100 mg capsule Take 1 capsule by mouth every 8 hours 90 capsule 0 budesonide-formoterol (SYMBICORT) 80-4.5 mcg/actuation inhaler Inhale 2 Puffs as instructed twice daily. Unsure of dosing ALBUTEROL INHALATION Inhale as instructed. albuterol HFA 90 mcg/actuation HFA Inhale 90 mcg as instructed every 4 hours as needed (shortness of breath). LABS: Recent Labs 11/13/23 0550 WBC 14.56* RBC 5.32 HB 16.6 HCT 52.4* MCV 98.5 PLT 262 NEUTP 85.1 LYMPHP 5.6 MONOP 8.4 BASOP 0.3 ABSNEUT 12.39* ABSMONO 1.22* ABSEOSIN <0.03 ABSBASO 0.04 GLUC 134* BUN 31* CREAT 1.15 NA 137 K 4.6 CHLOR 92* CO2 31* TPROT 7.8 ALB 4.4 CA 9.1 ALKPHOS 114* TBILI 0.5 AST 42* ALT 46 ABG: Invalid input(s): [id number] Chest imaging personally reviewed Pex: vitals as noted. BP 139/71 Pulse (!) 104 Temp 36.4 ?C (97.6 ?F) Resp (!) 26 Ht 182.9 cm (6') Wt 59 kg (130 lb) SpO2 96% BMI 17.63 kg/m? Full exam as per TANA/RESIDENT note. Lungs: clear, no large effusion. ENT: no cervical lymphadenopathy, supple. Abd: nondistended, no rebound, nonsurgical. CV: RRR. No edema. Decent perfusion. Skin: not jaundice. No diaphoresis Poor nails Poor skin care Poor hygiene Unshaven Copd barrel Low sq fat NIV 18/5 Lines, Drains, and Airways Line Duration Peripheral 11/13/23 0550 Left Arm 20 Gauge <1 day Peripheral 11/13/23 0750 [facility] Right Forearm 20 Gauge <1 day History: as linked above and : Poor historian No family here On bilevel RSV isolation My Medical Decision Making: Ass: RSV BRONCHIOLITIS AND PNEUMONIA POSSIBLE RLL BACTERIAL PNEUMONIA PRESUEMED COPD WITH ARF MALNOURISHED; POA SUSPECTED CHRONIC RESP FAILURE Inc bnpt but doubt acute cardiac; trop neg; cxr no chf Drug abuse / intox Plan: NIV, vbg better 88 FROM 114 Supportive care RSV Cautious steroids, dec if less wheeze Noted lasix once for BNPT, WOULD HOLD FURTHER; CXR NOT CHF Aerosols Ceft /doxy Very disheveled, reduced care, ?homeless ?support ECHO ADD: TOX SCREEN POLYSUBSTANCE ABUSE COCAINE,THC,AMPHETAMIN ES Discussed with bedside staff/ patient/ED staff/ bedside RN with Plan of care / resident with teaching This patient has a high probability of sudden, clinically significant deterioration, which requires the highest level of physician preparedness to intervene urgently. I managed/supervised life or organ supporting interventions that required frequent physician assessment. I devoted my full attention to the direct care of this patient for (more content not included)... Normal [facility] HISTORY PHYSICAL HNO ID: [id number] Author: Jill Shin MD Service: Critical Care Author Type: Physician Type: HANDP Filed: 11/14/2023 6:56 AM Note Text: MICU HANDP PATIENT NAME: Javier Dickson REASON FOR ADMISSION: Respiratory failure (Acute, with Hypercapnea, with Hypoxemia) and Severe metabolic disorder DATE: November 13, 2023 Subjective HPI Mr. Javier Dickson is a 53 year old male with PMH of COPD and tobacco abuse who presented to [facility] from home via EMS for worsening shortness of breath for the past few days associated with productive cough, dyspnea on exertion and chest pain. EMS found SpO2 81% on RA. Placed on 6 L NC and 2 DuoNebs, improved to 92%. Patient is a poor historian but has rambling speech. He denies fever, chills, vomiting, abdominal pain or urinary symptoms. ED course: He appeared ill, tachypneic but not in respiratory distress. Vitals showed sinus tachycardia 100s, respiratory rate 20s saturating 95% on 6 L NC. Initial labs significant for respiratory acidosis VBG 7.129/114 with lactate 2.8; leukocytosis 14.56, Hgb 16.6; creatinine 1.15, BUN 31, CO2 31; proBNP 14, 214. EKG sinus tachycardia with fusion complexes, troponins 57->54->54. Positive RSV. CXR right bibasilar infiltrates. He was started on ceftriaxone, doxycycline, breathing treatments x 2 and Solu-Medrol. MICU consulted for acute on chronic respiratory failure. PAST MEDICAL HISTORY Diagnosis Date Bowel obstruction (HCC) COPD (chronic obstructive pulmonary disease) (HCC) No past surgical history on file. FAMILY HISTORY Problem Relation Age of Onset No Known Problems Mother Heart disease No Family History Social History Tobacco Use Smoking status: Every Day Packs/day: 1 Types: Cigarettes Substance Use Topics Alcohol use: Not Currently No current facility-administered medications on file prior to encounter. Current Outpatient Medications on File Prior to Encounter Medication Sig acetaminophen (TYLENOL) 325 mg tablet Take 2 tablets by mouth every 6 hours as needed. amitriptyline (ELAVIL) 50 mg tablet Take 1 tablet by mouth daily at bedtime. gabapentin (NEURONTIN) 100 mg capsule Take 1 capsule by mouth every 8 hours budesonide-formoterol (SYMBICORT) 80-4.5 mcg/actuation inhaler Inhale 2 Puffs as instructed twice daily. Unsure of dosing ALBUTEROL INHALATION Inhale as instructed. albuterol HFA 90 mcg/actuation HFA Inhale 90 mcg as instructed every 4 hours as needed (shortness of breath). Objective OBJECTIVE BP 113/79 Pulse (!) 106 Temp 36.4 ?C (97.6 ?F) Resp 19 Ht 182.9 cm (6') Wt 59 kg (130 lb) SpO2 98% BMI 17.63 kg/m? Temp (24hrs), Av.4 ?C (97.6 ?F), Min:36.4 ?C (97.6 ?F), Max:36.4 ?C (97.6 ?F) Body mass index is 17.63 kg/m?., Hemoglobin A1C (%) Date Value 01/10/2021 6.1 Intake/Output Summary (Last 24 hours) at 11/13/20232041 Last data filed at 11/13/2023 1509 Gross per 24 hour Intake 300 ml Output 1200 ml Net -900 ml Physical Exam Constitutional: General: He is sleeping. He is not in acute distress. Appearance: He is cachectic. He is ill-appearing and toxic-appearing. Comments: Poor hygiene, disheveled chronic appearing male Eyes: General: No scleral icterus. Conjunctiva/sclera: Conjunctivae normal. Pupils: Pupils are equal, round, and reactive to light. Cardiovascular: Rate and Rhythm: Normal rate and regular rhythm. Pulses: Normal pulses. Heart sounds: Normal heart sounds. No murmur heard. Pulmonary: Effort: No respiratory distress. Breath sounds: Wheezing and rales present. Chest: Chest wall: No tenderness. Abdominal: General: Abdomen is flat. Bowel sounds are normal. There is no distension. Palpations: Abdomen is soft. Tenderness: There is no abdominal tenderness. There is no guarding. Musculoskeletal: General: No swelling. Skin: Findings: Erythema and lesion present. Neurological: Mental Status: He is easily aroused. He is disoriented. Psychiatric: Behavior: Behavior is uncooperative. LABORATORY: BLOOD GAS: CBC: Recent Labs 11/13/23 0550 WBC 14.56* HB 16.6 HCT 52.4* PLT 262 MCV 98.5 RDWCV 12.7 NEUTP 85.1 ABSNEUT 12.39* LYMPHP 5.6 MONOP 8.4 COAG: No results for input(s): "APTT", "INR" in the last 168 hours. CMP: Recent Labs 11/13/23 1307 11/13/23 0550 GLUC 104* 134* NA 135* 137 K 4.7 4.6 CHLOR 95* 92* CO2 28 31* ANION 12 14 BUN 35* 31* CREAT 0.90 1.15 ALB -- 4.4 TBILI -- 0.5 ALKPHOS -- 114* AST -- 42* ALT -- 46 TPROT -- 7.8 URINALYSIS:No results for input(s): "PH", "SPGR", "UGLUC", "UBILI", "UKET", "UHB", "UPROT", "UROBIL", "UWBC", "SSA" in the last 168 hours. Invalid input(s): NITR Cardiac:No results for input(s): "CKTEST", "CKMB", "CKMBP", "TROPONIN", "BNP" in the last 168 hours. Microbiology: Positive Micro-30 Days Procedure Component Value Units Date/Time COVID AND Influenza A/B AND RSV NAAT, Expedited [[id number]] (Abn (more content not included)... Normal [facility] NT-proBNP SerPl-mCncon 11-13 Natriuretic peptide.B prohormone N-Terminal [Mass/Vol] 79996 pg/mL High <125 [facility] Comment on above: Order Comment: Speci men Type: BLOOD SPECIMENOrdering Facility: [facility] Address: [address] [place] [address] Performed By: #### 3 3762-6, 21822-1 ####[facility] LABORATORYCLIA [id number] [place] [id number] [place] STAPH AUREUS PCRon 4 S. aureus and MRSA panel EH+probe (Nose) Abnormal Negative [facility] Comment on above: Order Comment: Speci men Type: SWAB OF INTERNAL NOSEOrdering Facility: [facility] Address: [address] [place] [address] Result Comment: Posi tive for Staphylococcus aureus by PCR. Positive for MRSA by PCR Performed By: #### S APCR ####[facility] [facility]CAM[facility] LABORATORYCLIA [id number] [address] [place] TOX SCREEN ROUT URon 024 Amphetamines Confirm (U) [Mass/Vol] Positive Abnormal Negative [facility] Comment on above: Order Comment: Speci men Type: URINE SPECIMENOrdering Facility: [facility] Address: [address] [place] [address] Result Comment: Cuto ff threshold at 1000 ng/mL. Performed By: #### U TOX2 ####[facility] LABORATORYCLIA [id number] [address] BARBITURATES, URINE Negative Normal Negative [facility] Comment on above: Order Comment: Speci men Type: URINE SPECIMENOrdering Facility: [facility] Address: [address] [place] [address] Result Comment: Cuto ff threshold at 200 ng/mL. Performed By: #### U TOX2 ####[employer] [facility]COREWE[facility] [employer] LABORATORYCLIA [id number] [place] [address] [place] BENZODIAZEPINES, UR Negative Normal Negative [facility] Comment on above: Order Comment: Speci men Type: URINE SPECIMENOrdering Facility: [facility] Address: [address] [place] [address] Result Comment: Cuto ff threshold at 200 ng/mL. Performed By: #### U TOX2 ####[facility] LABORATORYCLIA [id number] [address] [place] Cannabinoids Screen Ql (U) Positive Abnormal Negative [facility] Comment on above: Order Comment: Speci men Type: URINE SPECIMENOrdering Facility: [facility] Address: [address] [place] [address] Result Comment: Cuto ff threshold at 50 ng/mL. Performed By: #### U TOX2 ####[facility] LABORATORYCLIA [id number] [address] [place] Cocaine Ql (U) Positive Abnormal Negative [facility] Comment on above: Order Comment: Speci men Type: URINE SPECIMENOrdering Facility: [facility] Address: [address] [place] [address] Result Comment: Cuto ff threshold at 300 ng/mL. Performed By: #### U TOX2 ####[facility] LABORATORYCLIA [id number] [address] [place] Ethanol (U) [Mass/Vol] <11 Normal <11 [facility] Comment on above: Order Comment: Speci men Type: URINE SPECIMENOrdering Facility: [facility] Address: [address] [place] [address] Performed By: #### U TOX2 ####[facility] LABORATORYCLIA [id number] [address] [place] Opiates Screen Ql (U) Negative Normal Negative [facility] Comment on above: Order Comment: Speci men Type: URINE SPECIMENOrdering Facility: [facility] Address: [address] [place] [address] Result Comment: Cuto ff threshold at 300 ng/mL. Performed By: #### U TOX2 ####[facility] LABORATORYCLIA [id number] [address] oxyCODONE cutoff Screen (U) [Mass/Vol] Negative Normal Negative [facility] Comment on above: Order Comment: Speci men Type: URINE SPECIMENOrdering Facility: [facility] Address: [address] [place] [address] Result Comment: Cuto ff threshold at 100 ng/mL. Performed By: #### U TOX2 ####[facility] LABORATORYCLIA [id number] [address] [place] Phencyclidine Ql (U) Negative Normal Negative [facility] Comment on above: Order Comment: Speci men Type: URINE SPECIMENOrdering Facility: [facility] Address: [address] [place] [address] Result Comment: Cuto ff threshold at 25 ng/mL. Performed By: #### U TOX2 ####[facility] LABORATORYCLIA [id number] [place] [address] [place] XR CHEST 1V FRONTALon 2023 XR CHEST 1V FRONTAL * * *Final Report* * * DATE OF EXAM: Nov 13 2023 6:17AM AKX [id number] - XR CHEST 1V FRONTAL / PROCEDURE REASON: Shortness of breath * * * * Physician Interpretation * * * * CHEST RADIOGRAPH: AP view of the chest. Exam Date/Time: 11/13/2023 6:17 AM Indication: Shortness of breath Comparison: Chest x-ray 06/21/2020 RESULTS: Lines, Tubes, and Devices: None Lungs and Pleura: Patchy opacity in the right base. No pleural effusion or pneumothorax. Cardiomediastinal silhouette: The mediastinal and cardiac silhouette are normal in size and contour. Other: The bones of the chest are unremarkable. IMPRESSION: Right basilar patchy opacity favoring infection. Probate Paralegal: ROLANDO Transcribe Date/Time: Nov 13 2023 6:19A Dictated by : ENOC KELLER MD This examination was interpreted and the report reviewed and electronically signed by: ENOC KELLER MD on Nov 13 2023 6:19AM EST [id number] Normal [facility] CT Maxillofacial region WO a nd W contrast Antonieta 09-06-2023 Nasal fracture. Report Dictated on Electronically Signed By: Glenn Rodriguez MD Electronically Signed Date/Time: 09/06/2023 4:20 PM [facility] [employer] RADIOLOGY SYSTEM Patient Name: JAVIER DICKSON : 1970 [id number] Exam Date/Time: 09/06/2023 15:36 Procedure: CT MAXILLOFACIAL WO IV CONTRAST Ordering Provider: HASTINGS STEPHEN Reason For Exam: nasal facial bones Indication: Injury. Comparison none FINDINGS: Dose reduction was employed with automated exposure control. Unenhanced maxillofacial series performed. 2 mm slices were reviewed in multiple orthogonal planes. 1 mm slices reviewed in transaxial plane. 3-D imaging created and reviewed on independent 3-D workstation. Displaced nasal fracture. Dental disease. Orbits unremarkable.. Sinuses are clear. No mastoiditis. No mandible dislocation. [facility] RADIOLOGY [facility] Glenn Rodriguez MD - 09/06/2023 Patient Name: JAVIER DICKSON : 1970 Exam Date/Time: 09/06/2023 15:36 Procedure: CT MAXILLOFACIAL WO IV CONTRAST Ordering Provider: HASTINGS STEPHEN Reason For Exam: nasal facial bones Indication: Injury. Comparison none FINDINGS: Dose reduction was employed with automated exposure control. Unenhanced maxillofacial series performed. 2 mm slices were reviewed in multiple orthogonal planes. 1 mm slices reviewed in transaxial plane. 3-D imaging created and reviewed on independent 3-D workstation. Displaced nasal fracture. Dental disease. Orbits unremarkable.. Sinuses are clear. No mastoiditis. No mandible dislocation. IMPRESSION: Nasal fracture. Report Dictated on Electronically Signed By: Glenn Rodriguez MD Electronically Signed Date/Time: 09/06/2023 4:20 PM EDT [facility] Radiology Study observation (narrative) [facility] CT Maxillofacial region WO a nd W contrast IVOrdered By: Glenn Rodriguez on 09-06-2023 [facility] [employer] Work Phone: Basic Metabolic Panelon 09-0 Calcium [Mass/Vol] 9.8 mg/dL Normal 8.4-10.4 [facility] Comment on above: Performed By: #### L IPD2, BMP3, HA1C2 #### [facility] [employer] [facility] [address] [place] [address] Glucose [Mass/Vol] 66 mg/dL Low 70-100 [facility] Comment on above: Performed By: #### L IPD2, BMP3, HA1C2 #### [facility] [employer] [address] [place] [address] Anion gap [Moles/Vol] 7 mmol/L Normal 3-13 [facility] Comment on above: Performed By: #### L IPD2, BMP3, HA1C2 #### [facility] [employer] [facility] [address] [place], [place] CO2 [Moles/Vol] 32 mmol/L High 22-30 [facility] Comment on above: Performed By: #### L ASHLYN2VELMA3 HA1C2 #### [facility] [address] [place], [place] Creatinine [Mass/Vol] 0.66 mg/dL Normal 0.52-1.25 [facility] Comment on above: Performed By: #### L IPD2VELMA3, HA1C2 #### [facility] [address] [place], [place] eGFR OTHER > 90.0 Normal >60 [facility] Comment on above: Result Comment: KDIG O guidelines provide the following GFR categories: Stage GFR(ml/min/1.73 m2) Terms G1 >=90 Normal or high G2 60-89 Mildly decreased* G3a 45-59 Mildly to moderately decreased G3b 30-44 Moderately to severely decreased G4 15-29 Severely decreased G5 <15 Kidney failure *Relative to young adult level. In the absence of evidence of kidney damage, neither GFR category G1 nor G2 fulfill the criteria for CKD. The CKD-EPI equation is validated in individuals 18 years of age and older. Currently the best equation for estimating glomerular filtration rate (GFR) from serum creatinine in children is the Bedside Wright equation. It is less accurate in patients with extremes of muscle mass, restriction of dietary protein, ingestion of creatine, extra-renal metabolism of creatinine, or treatment with medications that affect renal tubular creatinine secretion. Performed By: #### L ASHLYN2VELMA3 HA1C2 #### [place] [address] [place], [place] GFR/1.73 sq M.predicted among blacks MDRD (S/P/Bld) [Vol rate/Area] mL/min/{1.73_m2} Normal >60 [facility] Comment on above: Performed By: #### L ASHLYN2VELMA3, HA1C2 #### [address] Urea nitrogen [Mass/Vol] 11 mg/dL Normal 7-17 [facility] Comment on above: Performed By: #### L IPD2VELMA3, HA1C2 #### [facility] [address] [place] [address] Chloride [Moles/Vol] 100 mmol/L Normal 98-107 [facility] Comment on above: Performed By: #### L IPD2, BMP3, HA1C2 #### [facility] [address] [place] [address] Potassium [Moles/Vol] 4.6 mmol/L Normal 3.5-5.1 [facility] Comment on above: Performed By: #### L IPD2, BMP3, HA1C2 #### [facility] [address] [place] [address] Sodium [Moles/Vol] 139 mmol/L Normal 135-145 [facility] Comment on above: Performed By: #### L IPD2, BMP3, HA1C2 #### [facility] [address] [place] [address] Anion gap [Moles/Vol] 7 mmol/L 3 - 13 mmol/L [facility] Calcium [Mass/Vol] 9.8 mg/dL 8.4 - 10. 4 mg/dL [facility] Chloride [Moles/Vol] 100 mmol/L 98 - 10 7 mmol/L [facility] CO2 [Moles/Vol] 32 mmol/L High 22 - 30 mmol/L [facility] Creatinine [Mass/Vol] 0.66 mg/dL 0.52 - 1.25 mg/dL [facility] eGFR mL/min 60 - P INF mL/min [facility] EGFR IF NonAfrican Swedish mL/min 60 - PINF mL/min [facility] Comment on above: KDIGO guidelines pro vide the following GFR categories: Stage GFR(ml/min/1.73 m2) Terms G1 >=90 Normal or high G2 60-89 Mildly decreased* G3a 45-59 Mildly to moderately decreased G3b 30-44 Moderately to severely decreased G4 15-29 Severely decreased G5 <15 Kidney failure *Relative to young adult level. In the absence of evidence of kidney damage, neither GFR category G1 nor G2 fulfill the criteria for CKD. The CKD-EPI equation is validated in individuals 18 years of age and older. Currently the best equation for estimating glomerular filtration rate (GFR) from serum creatinine in children is the Bedside Wright equation. It is less accurate in patients with extremes of muscle mass, restriction of dietary protein, ingestion of creatine, extra-renal metabolism of creatinine, or treatment with medications that affect renal tubular creatinine secretion. Glucose [Mass/Vol] 66 mg/dL Low 70 - 100 mg/dL [facility] Interpretation and review of laboratory results Abnormal [facility] Potassium [Moles/Vol] 4.6 mmol/L 3.5 - 5.1 mmol/L [facility] Sodium [Moles/Vol] 139 mmol/L 135 - 145 mmol/L [facility] Urea nitrogen (BldV) [Mass/Vol] 11 mg/dL 7 - 17 mg/dL [facility] Hemoglobin A1Con 07-19-2022 Glucose [Mass/Vol] 123 mg/dL Normal [facility] Comment on above: Performed By: #### L IPD2, BMP3, HA1C2 #### [address] [address] HbA1c (Bld) [Mass fraction] 5.9 % Abnormal [facility] Comment on above: Result Comment: Norm al less than 5.7% Prediabetes 5.7% to 6.4% Diabetes 6.5% or higher --HgbA1C levels may not be accurate in patients who have renal disease, received recent blood transfusions, are anemic, or who have dyshemoglobinemia. Performed By: #### L IPD2, BMP3, HA1C2 #### [address] [address] eAG 123 mg/dL [facility] HbA1c (Bld) [Mass fraction] 5.9 % Abnormal [facility] Comment on above: Normal less than 5.7 % Prediabetes 5.7% to 6.4% Diabetes 6.5% or higher --HgbA1C levels may not be accurate in patients who have renal disease, received recent blood transfusions, are anemic, or who have dyshemoglobinemia. Interpretation and review of laboratory results Abnormal [facility] Test Performed by [address] [address] [facility] Lipid Panelon 07-19-2022 Chol/HDL 3 Normal [facility] Comment on above: Result Comment: Ref Range: < 3 Low Risk for CHD 3-6 Mod Risk for CHD > 6 High Risk for CHD Performed By: #### L IPD2, BMP3, HA1C2 #### [address] [address] Cholesterol in HDL [Mass/Vol] 54 mg/dL Normal 40-60 [facility] Comment on above: Performed By: #### L IPD2, BMP3, HA1C2 #### [address] [address] Low Density Lipoprotein 95 mg/dL Normal <100 [facility] Comment on above: Performed By: #### L IPD2, BMP3, HA1C2 #### [address] [address] Triglyceride [Mass/Vol] 85 mg/dL Normal <150 [facility] Comment on above: Performed By: #### L IPD2, BMP3, HA1C2 #### [address] [address] Cholesterol [Mass/Vol] 166 mg/dL Normal < 200 [facility] Comment on above: Performed By: #### L IPD2, BMP3, HA1C2 #### [address] [address] Cholesterol [Mass/Vol] 166 mg/dL NINF - 200 mg/dL [facility] Cholesterol in HDL [Mass/Vol] 54 mg/dL 40 - 60 mg/dL [facility] Cholesterol in LDL [Mass/Vol] 95 mg/dL NINF - 100 mg/dL [facility] Cholesterol.total/Susan sterol in HDL [Mass ratio] 3 {ratio} [facility] Comment on above: Ref Range: < 3 Low Risk for CHD 3-6 Mod Risk for CHD > 6 High Risk for CHD Triglyceride [Mass/Vol] 85 mg/dL NINF - 150 mg/dL [facility] No Panel Informationon 07-19 Test Performed by [id number] [place] [address] LAB [facility] Basic Metabolic Panelon Calcium [Mass/Vol] 8.9 mg/dL Normal 8.4-10.4 [facility] Comment on above: Performed By: #### T ROPN, BMP3 #### [address] [place], [place] Anion gap [Moles/Vol] 1 mmol/L Low 3-13 [facility] Comment on above: Performed By: #### T TAMMY BMP3 #### [facility] [address] [place], [place] CO2 [Moles/Vol] 32 mmol/L High 22-30 [facility] Comment on above: Performed By: #### Laura MUNOZ BMP3 #### [facility] [address] [place], [place] Creatinine [Mass/Vol] 0.74 mg/dL Normal 0.52-1.25 [facility] Comment on above: Performed By: #### Laura MUNOZ BMP3 #### [address] [place], [place] eGFR OTHER > 90.0 Normal >60 [facility] Comment on above: Result Comment: KDIG O guidelines provide the following GFR categories: Stage GFR(ml/min/1.73 m2) Terms G1 >=90 Normal or high G2 60-89 Mildly decreased* G3a 45-59 Mildly to moderately decreased G3b 30-44 Moderately to severely decreased G4 15-29 Severely decreased G5 <15 Kidney failure *Relative to young adult level. In the absence of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 1.0-6.0 [facility] Comment on above: Performed By: #### B MP3, PT, HEMDF #### [facility] [address] [place] [address] Erythrocyte distribution width (RBC) [Ratio] 13.0 % Normal 11.5-14.5 [facility] Comment on above: Performed By: #### B MP3, PT, HEMDF #### [facility] [address] [place] [address] Granulocytes/100 WBC (Bld) 69.7 % Normal 40.0-80.0 [facility] Comment on above: Performed By: #### B MP3, PT, HEMDF #### [facility] [employer] [facility] [address] [place] [address] Hematocrit (Bld) [Volume fraction] 40.6 % Normal 40.0-52.0 [facility] Comment on above: Performed By: #### B MP3, PT, HEMDF #### [facility] [employer] [facility] [address] [place] [address] Hemoglobin (Bld) [Mass/Vol] 13.6 g/dL Normal 13.0-18.0 [facility] Comment on above: Performed By: #### B MP3, PT, HEMDF #### [facility] [employer] [facility] [address] [place] [address] Lymphocytes (Bld) [#/Vol] 1.1 10*3/uL Normal 1.0-4.3 [facility] Comment on above: Performed By: #### B MP3, PT, HEMDF #### [facility] [employer] [facility] [address] [place] [address] Lymphocytes/100 WBC (Bld) 16.3 % Low 20.0-40.0 [facility] Comment on above: Performed By: #### B MP3, PT, HEMDF #### [facility] [address] [place] [address] MCH (RBC) [Entitic mass] 30.8 pg Normal 26.0-34.0 [facility] Comment on above: Performed By: #### B MP3, PT, HEMDF #### [facility] [address] [place] [address] MCHC (RBC) [Mass/Vol] 33.6 % Normal 32.0-36.0 [facility] Comment on above: Performed By: #### B MP3, PT, HEMDF #### [facility] [address] [place] [address] MCV (RBC) [Entitic vol] 91.5 fL Normal 80.0-98.0 [facility] Comment on above: Performed By: #### B MP3, PT, HEMDF #### [facility] [address] [place] [address] Monocytes (Bld) [#/Vol] 0.6 10*3/uL Normal 0.0-0.8 [facility] Comment on above: Performed By: #### B MP3, PT, HEMDF #### [facility] [address] [place] [address] Monocytes/100 WBC (Bld) 9.3 % Normal 2.0-10.0 [facility] Comment on above: Performed By: #### B MP3, PT, HEMDF #### [facility] [address] [place] [address] Platelet mean volume (Bld) [Entitic vol] 7.0 fL Low 7.4-10.4 [facility] Comment on above: Performed By: #### B MP3, PT, HEMDF #### [facility] [address] [place] [address] Platelets (Bld) [#/Vol] 329 10*3/uL Normal 140-440 [facility] Comment on above: Performed By: #### B MP3, PT, HEMDF #### [facility] [address] [place] [address] RBC (Bld) [#/Vol] 4.43 10*6/uL Normal 4.40-5.90 [facility] Comment on above: Performed By: #### B MP3, PT, HEMDF #### [facility] [address] [place] [address] WBC (Bld) [#/Vol] 6.5 10*3/uL Normal 3.6-10.7 [facility] Comment on above: Performed By: #### B MP3, PT, HEMDF #### [facility] [address] [place] [address] Prothrombin Timeon 9 INR Coag (PPP) [Relative time] 0.9 Normal 0.9-1.1 [facility] Comment on above: Result Comment: Sudhakar mmended Anticoagulant Therapy: SEE BELOW ----- INR of 2.0 - 3.0 : - Prophylaxis of Venous Thrombosis (high-risk surgery) - Treatment of Venous Thrombosis - Treatment of Pulmonary Embolism (Includes tissue heart valves, Acute Myocardial Infarction to prevent systemic embolism, Valvular Heart Disease, and Atrial Fibrillation) ----- INR of 2.5 - 3.5 : - Mechanical Prosthetic Valves (high risk) - If oral anticoagulant therapy is used to prevent Myocardial Infarction Performed By: #### B MP3, PT, HEMDF #### [facility] [address] [place] [address] PT Coag (PPP) [Time] 9.5 s Normal 9.0-12.0 [facility] Comment on above: Result Comment: . Performed By: #### B MP3, PT, HEMDF #### [facility] [address] [place] [address] Protime-INRon 09-18-2019 INR Coag (PPP) [Relative time] 0.9 {INR} [facility], [place] Comment on above: Recommended Anticoag ulant Therapy: SEE BELOW ----- INR of 2.0 - 3.0 : - Prophylaxis of Venous Thrombosis (high-risk surgery) - Treatment of Venous Thrombosis - Treatment of Pulmonary Embolism (Includes tissue heart valves, Acute Myocardial Infarction to prevent systemic embolism, Valvular Heart Disease, and Atrial Fibrillation) ----- INR of 2.5 - 3.5 : - Mechanical Prosthetic Valves (high risk) - If oral anticoagulant therapy is used to prevent Myocardial Infarction PT Coag (PPP) [Time] 9.5 s 9 - 12 s [place], [place] Comment on above: . Test Performed by [facility] [employer] [facility], [address], [place], [place] [id number] [place] [address] XR Shoulder Right 2 VWon [place], [facility] Incoming Radiology Results From [facility] - 09/18/2019 9:56 AM EST Patient Name: JAVIER DICKSON II ---Diagnostic Radiology--- Exam Date/Time 09/18/2019 09:55:12 EST Exam CR Shoulder 2+ Views Right Ordering Physician MD NANNETTE, CAM Accession Number [id number] CPT4 Codes 60753 () Reason For Exam pain Report RIGHT SHOULDER CLINICAL INDICATION: Pain after trauma Three views of the right shoulder were obtained. COMPARISON: None. FINDINGS: No fracture or dislocation of the right shoulder is identified. There is no abnormal soft tissue swelling. Mild degenerative changes of the right acromioclavicular joint are noted. IMPRESSION: No fracture or dislocation of the right shoulder is identified. Mild degenerative changes of the right acromioclavicular joint. Report Dictated on --- Final --- Dictating Physician: MD EDUARDO JONATHAN R Signed Date and Time: 09/18/2019 9:55 am Signed by: MD EDUARDO JONATHAN R Transcribed Date and Time: 09/18/2019 9:56 [place], [place] Patient Name: JAVIER DICKSON II ---Diagnostic Radiology--- Exam Date/Time 09/18/2019 09:55:12 EST Exam CR Shoulder 2+ Views Right Ordering Physician MD NANNETTE, CAM Accession Number [id number] CPT4 Codes 92887 () Reason For Exam pain Report RIGHT SHOULDER CLINICAL INDICATION: Pain after trauma Three views of the right shoulder were obtained. COMPARISON: None. FINDINGS: No fracture or dislocation of the right shoulder is identified. There is no abnormal soft tissue swelling. Mild degenerative changes of the right acromioclavicular joint are noted. IMPRESSION: No fracture or dislocation of the right shoulder is identified. Mild degenerative changes of the right acromioclavicular joint. Report Dictated on --- Final --- Dictating Physician: MD EDUARDO JONATHAN R Signed Date and Time: 09/18/2019 9:55 am Signed by: MD EDUARDO JONATHAN R Transcribed Date and Time: 09/18/2019 9:56 [place], [place] Vital Signs Date Time Vital Sign Value Performing Clinician Facility 08-14-2024 07:00-0400 Heart rate 83 /min Emely Amin MD Work Phone: [facility] [employer] 08-14-2024 07:00-0400 SaO2% (BldA) [Mass fraction] 97 % Emely Amin MD Work Phone: [facility] [employer] Comment on above: RA 06-27-2024 12:39-0400 Body height 182.9 cm Paula Raphael MD Work Phone: [facility] 06-27-2024 12:39-0400 Body mass index (BMI) [Ratio] 21.02 kg/m2 Paula Raphael MD Work Phone: [facility] 06-27-2024 12:39-0400 Body weight 70.31 kg Paula Raphael MD Work Phone: [facility] 04-29-2024 12:55-0400 Body height 182.9 cm Emely Amin MD Work Phone: [facility] [employer] 04-29-2024 12:55-0400 Diastolic blood pressure 77 mm[Hg] Emely Amin MD Work Phone: [facility] [employer] 04-29-2024 12:55-0400 Heart rate 72 /min Emely Amin MD Work Phone: [facility] [employer] 04-29-2024 12:55-0400 SaO2% (BldA) [Mass fraction] 86 % Emely Amin MD Work Phone: [facility] 04-29-2024 12:55-0400 Systolic blood pressure 119 mm[Hg] Emely Amin MD Work Phone: [facility] 09-06-2023 15:19-0400 Body temperature 98.01 [degF] Kelsi Batista MD Work Phone: [facility] 09-06-2023 15:19-0400 Diastolic blood pressure 81 mm[Hg] Kelsi Batista MD Work Phone: [facility] 09-06-2023 15:19-0400 Heart rate 91 /min Kelsi Batista MD Work Phone: [facility] 09-06-2023 15:19-0400 Respiratory rate 17 /min Kelsi Batista MD Work Phone: [facility] 09-06-2023 15:19-0400 SaO2% (BldA) [Mass fraction] 95 % Kelsi Batista MD Work Phone: [facility] 09-06-2023 15:19-0400 Systolic blood pressure 117 mm[Hg] Kelsi Batista MD Work Phone: [facility] 04-20-2022 19:25-0400 Body height 182.9 cm John Eddy MD Work Phone: [facility] 04-20-2022 19:25-0400 Body mass index (BMI) [Ratio] 21.02 kg/m2 John Eddy MD Work Phone: [facility] 04-20-2022 19:25-0400 Body temperature 98.1 [degF] John Eddy MD Work Phone: [facility] 04-20-2022 19:25-0400 Body weight 70.31 kg John Eddy MD Work Phone: [facility] 04-20-2022 19:25-0400 Diastolic blood pressure 69 mm[Hg] John Eddy MD Work Phone: [facility] 04-20-2022 19:25-0400 Heart rate 82 /min John Eddy MD Work Phone: [facility] 04-20-2022 19:25-0400 Respiratory rate 16 /min John Eddy MD Work Phone: [facility] 04-20-2022 19:25-0400 SaO2% (BldA) [Mass fraction] 95 % John Eddy MD Work Phone: [facility] 04-20-2022 19:25-0400 Systolic blood pressure 101 mm[Hg] John Eddy MD Work Phone: [facility] 09-18-2019 09:39-0500 Body Temperature 97.9 [degF] [place] 09-18-2019 09:39-0500 BP Diastolic 90 mm[Hg] [place], [place] 09-18-2019 09:39-0500 BP Systolic 141 mm[Hg] [place] 09-18-2019 09:39-0500 Pulse (Heart Rate) 90 /min [place], [place] 09-18-2019 09:39-0500 Pulse Oximetry 97 % [place], [place] 09-18-2019 09:39-0500 Respiratory Rate 16 /min [place] Encounters Encounter Date Encounter Type Care Provider Facility Start: 06-02-2025 ambulatory Paula JALLOH Facil ity:[facility] Start: 01-31-2025 End: 01-31-2025 ambulatory Paula JALLOH [facility] Work Phone: Start: 01-31-2025 End: 01-31-2025 Departed Referred Paula Raphael -[facility] [place] [address] Start: 01-31-2025 End: 01-31-2025 ambulatory Paula JALLOH Facility:[facility] Start: 10-03-2024 End: 10-03-2024 ambulatory Paula JALLOH Facility:[facility] Start: 09-16-2024 End: 09-16-2024 ambulatory Paula JALLOH Facility:[facility] Start: 08-14-2024 End: 08-14-2024 Subsequent hospital visit by physician Emely Amin MD Work Phone: [facility] Comment on above: Chronic respiratory failure with hypoxia (HCC) Start: 08-14-2024 End: 08-14-2024 ambulatory [facility] Start: 06-27-2024 End: 06-27-2024 Subsequent hospital visit by physician Paula Raphael MD Work Phone: [facility] Comment on above: Mastodynia Start: 06-27-2024 End: 06-27-2024 ambulatory PAULA RAPHAEL [facility] Start: 06-25-2024 End: 06-25-2024 ambulatory [facility] Start: 04-29-2024 End: 04-29-2024 Office outpatient new 45 minutes Emely Amin MD Work Phone: [facility] Comment on above: Chronic respiratory failure with hypoxia (HCC) (Primary Dx); Chronic obstructive pulmonary disease, unspecified COPD type (HCC); Bullous emphysema (HCC); Cigarette nicotine dependence without complication Start: 04-29-2024 End: 04-29-2024 ambulatory [facility] Start: 02-08-2024 End: 02-08-2024 ambulatory [facility] Work Phone: Start: 02-08-2024 End: 02-08-2024 Departed Referred [facility] [address] Start: 01-12-2024 Telephone encounter Emily burton [employer] [facility] Comment on above: Pulm Rehab (Letter S ent) Start: 01-09-2024 End: 01-09-2024 ambulatory [facility] Work Phone: Start: 01-09-2024 End: 01-09-2024 Departed Referred [facility] [address] Start: 01-09-2024 Registered Referred [facility] [address] Start: 01-08-2024 End: 01-08-2024 ambulatory [facility] Work Phone: Start: 01-08-2024 End: 01-08-2024 Departed Referred [facility] [address] Start: 01-01-2024 Telephone encounter Beto grant Work Phone: [facility] Comment on above: Home Care (Confirmat ion Call ) Orders Start: 12-28-2023 Telephone encounter Maykel manrique LPN Work Phone: [facility] Comment on above: Home Care (MD to joanne lozada) Other Start: 12-27-2023 End: 01-05-2024 [facility] Start: 12-25-2023 Telephone encounter Alcon wong MD Work Phone: [facility] Comment on above: Appointment Request (RISK DEVELOPER Appt) Start: 11-28-2023 ambulatory [facility] Start: 11-27-2023 ambulatory [facility] Start: 11-22-2023 Telephone encounter Kelsi chambers MD Work Phone: [facility] Clinical Communication Comment on above: update on patient Start: 11-13-2023 End: 11-23-2023 Evaluation and management of inpatient DAVION SUGGS Facility:[facility] Start: 09-06-2023 End: 09-06-2023 Emergency department patient visit Kelsi Batista MD Work Phone: [facility] Comment on above: Insect bite of head, unspecified part, initial encounter (Primary Dx); Chronic obstructive pulmonary disease, unspecified COPD type (HCC) Start: 08-13-2022 ambulatory KELSI BATISTA [facility] Start: 08-03-2022 ambulatory KELSI BATISTA [facility] Start: 07-19-2022 ambulatory KELSI BATISTA [facility] Start: 07-19-2022 End: 07-19-2022 Subsequent hospital visit by physician Pat Lee DO Work Phone: [facility] ONLY Comment on above: Screening for condit ion Start: 04-20-2022 End: 04-21-2022 Emergency department patient visit PCP [facility] Start: 04-20-2022 End: 04-20-2022 Emergency department patient visit John Eddy MD Work Phone: [facility] Emergency Dept Comment on above: COPD exacerbation (H CC) (Primary Dx); Shortness of breath Start: 06-23-2020 End: 06-23-2020 Letter encounter Blessing Aquino Work Phone: [facility] Start: 09-18-2019 End: 09-18-2019 Emergency department patient visit Cam Carias Work Phone: [facility] ED Comment on above: Injury of head, init ial encounter (Primary Dx); Laceration of scalp, initial encounter; Homelessness Procedures Date Procedure Procedure Detail Performing Clinician Start: 08-14-2024 Brncdilat rspse spmt ry pre&post-brncdilat admn Emely Amin MD Work Phone: Start: 06-27-2024 Us breast uni real t suzanne with image limited Paula Raphael MD Work Phone: Start: 06-27-2024 Diagnostic mammograp hy computer-aided detcj bi Paula Raphael MD Work Phone: Start: 09-06-2023 Ct maxillofacial w/o contrast material Danilo Hastings [employer] Work Phone: Start: 07-19-2022 Vaccine refused by patient COVID-19 vaccination refused Verlaine Jesus DO Work Phone: Start: 07-19-2022 Basic metabolic pane l calcium total Kelsi Batista MD Work Phone: Start: 07-19-2022 Lipid panel Kelsi chambers MD Work Phone: Start: 07-19-2022 Lipid 1996 panel - S nic or Plasma Kelsi Batista MD Work Phone: Start: 04-20-2022 Radiologic exam ches t single view John Eddy MD Work Phone: Start: 04-20-2022 End: 04-20-2022 Basic metabolic panel calcium total John Eddy MD Work Phone: Start: 04-20-2022 Ecg routine ecg w/le ast 12 lds w/i&r John Eddy MD Work Phone: Start: 06-21-2020 Antibody screen Comment on above: Performed By: #### T &S #### [place] [id number] Start: 09-18-2019 Ct head/brain w/o contrast material Cam Bowen [employer] Work Phone: Start: 09-18-2019 Basic metabolic pane l calcium total Cam Carias Work Phone: Start: 09-18-2019 Blood count complete auto&auto difrntl wbc Cam Bowen [employer] Work Phone: Start: 09-18-2019 Prothrombin time Cam Carias Work Phone: Start: 09-18-2019 Radex shoulder compl ete minimum 2 views Cam Bowen [employer] Work Phone: Plan of Treatment Date Care Activity Detail Author Start: 2031 RSV Immunization age d 60 or older (1 - 1-dose 60+ series) RSV Immunization aged 60 or older (1 - 1-dose 60+ series) [facility] Start: 09-18-2029 DTaP/Tdap/Td vaccine (2 - Td or Tdap) DTaP/Tdap/Td vaccine (2 - Td or Tdap) [facility] Start: 09-18-2029 DTaP/Tdap/Td vaccine (2 - Td) DTaP/Tdap/Td vaccine (2 - Td) [place] Start: 09-18-2029 DTaP/Tdap/Td Vaccine s (2 - Td or Tdap) DTaP/Tdap/Td Vaccines (2 - Td or Tdap) [facility] Start: 09-18-2029 Urine microalbumin profile DTa P,Tdap,Td Vaccine (2 - Td or Tdap) [facility] Start: 07-19-2027 Lipid panel [facility] Start: 12-30-2026 Diabetes Screening Diabetes Screenin g [facility] Start: 08-14-2024 End: 08-14-2024 Patient encounter procedure 08/14/2024 7:30 AM EDT Appointment [facility] PFT [address] [place] [phone] Emely Amin MD [address] [place] [id number] [facility] Start: 07-14-2024 COVID-19 Vaccine ( season) COVID-19 Vaccine () [facility] Start: 07-14-2024 Influenza vaccination [facility] Start: 06-04-2024 End: 06-04-2024 Patient encounter procedure [facility] Start: 04-29-2024 End: 04-29-2025 Complete PFT pre and post bronchodilator Complete PFT pre and post bronchodilator PFT Routine Chronic respiratory failure with hypoxia (HCC) Expected: 04/29/2024 (Approximate), Expires: 04/29/2025 [facility] Work Phone: Comment on above: Expected: 04/29/2024 (Approximate), Expires: 04/29/2025 Start: 02-13-2024 End: 01-30-2025 CT Chest W contrast IV CT CHEST W IVCON Radiology Routine Localized enlarged lymph nodes Expected: 02/13/2024, Expires: 01/30/2025 [facility] Work Phone: Comment on above: Expected: 02/13/2024 , Expires: 01/30/2025 Start: 11-13-2023 Depression Assessment Depression Ass [facility] Start: 07-19-2023 Creatinine measurement Creatinine Le keely [facility] Start: 07-19-2023 Diabetes mellitus screening Diabetes Screening [facility] Start: 07-19-2023 Hemoglobin A1c measurement A1C test (Diabetic or Prediabetic) [facility] Start: 07-19-2023 Potassium measurement Potassium Leve l [facility] Start: 07-14-2023 COVID-19 Vaccine (1 - 2023-24 season) COVID-19 Vaccine (2022- season) [facility] Start: 07-14-2023 Influenza vaccination Influenza Vacc ine (#1) [facility] Start: 08-11-2022 End: 08-11-2022 Patient encounter procedure 08/11/2022 Office Visit [facility] Kelsi Batista MD [address] [place] [address] [facility] Start: 08-03-2022 End: 08-03-2022 Patient encounter procedure 08/03/2022 Appointment Radiology [facility] [address] [facility] Start: 07-14-2022 Influenza vaccination [facility] Start: 2021 Shingles vaccine (1 of 2) Patel gles vaccine (1 of 2) [facility] Start: 2021 Shingrix Vaccine (1 of 2) Patel grix Vaccine (1 of 2) [facility] Start: 2021 Zoster Vaccines (1 of 2) Zoste r Vaccines (1 of 2) [facility] Start: 07-14-2019 Influenza vaccination Flu vaccine (# 1) [place], [place] Start: 2016 Screening for malign ant neoplasm of colon [facility] Start: 2011 Lipid panel Lipids [facility] Start: 2011 Lipid screen Lipid screen [place], [place] Start: 2001 Zoledronic acid therapy Alpha- 1 Antitrypsin Deficiency Screening [facility] Start: 1990 Hepatitis A Vaccines (1 of 2 - Risk 2-dose series) Hepatitis A Vaccines (1 of 2 - Risk 2-dose series) [facility] Start: 1990 Hepatitis B Vaccines (1 of 3 - 19+ 3-dose series) Hepatitis B Vaccines (1 of 3 - 19+ 3-dose series) [facility] Start: 1989 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 latisha Disease Visit Annual PCP Team Chronic Disease Visit [facility] Start: 1989 Hepatitis C screening [facility] Start: 1989 Spirometry Spirometry [facility] Start: 1986 HIV screen HIV screen [place], [place] Start: 1986 HIV screening [facility] screen [facility] Start: 1983 Depression Screen Depression Screen [facility] Start: 1983 Depression Screening Depression Scre ening [facility] Start: 1977 Pneumococcal 0-64 ye ars Vaccine (1 - PCV) Pneumococcal 0-64 years Vaccine (1 - PCV) [facility] Start: 1976 COVID-19 Vaccine (1) COVID-19 Vaccin e (1) [facility] Start: 1972 MMR Vaccines (1 of 1 - Standard series) MMR Vaccines (1 of 1 - Standard series) [facility] Start: 1971 COVID-19 Vaccine (#1) COVID-19 Vacci ne (#1) [facility] Start: 1971 Echocardiography Echocardiogram [facility] Start: 1971 Hepatitis B Vaccine (1 of 3 - 3-dose series) Hepatitis B Vaccine (1 of 3 - 3-dose series) [facility] Start: 1971 Hepatitis B Vaccines (1 of 3 - 3-dose series) Hepatitis B Vaccines (1 of 3 - 3-dose series) [facility] Start: 1971 HIV screening HIV Screening [facility] Start: 1971 Screening for malign ant neoplasm of colon [facility] Complete PFT pre and post bronchodilator Complete PFT pre and post bronchodilator PFT Routine Chronic respiratory failure with hypoxia (HCC) 08/14/2024 8:31 AM EDT [facility] Work Phone: [facility] Immunizations Immunization Date Immunization Notes Care Provider [place] 07-19-2022 Pneumococcal conjuga te PCV20, PF (Prevnar 20) Pat Lee DO Work Phone: [facility] 09-18-2019 tetanus toxoid, redu denise diphtheria toxoid, and acellular pertussis vaccine, adsorbed Camfrancisco ArevaloOlocityzheng [facility] 09-18-2019 diphtheria, tetanus toxoids and acellular pertussis vaccine, unspecified formulation Camfrancisco Carias [place], [place] Payers Date Payer Category Payer Self-pay 2022 Medicaid [id number] 2022 Medicaid [id number] 2020 Unknown [place]Y [place] [id number] 2020-Present Indemnity [id number] 2019 Medicaid [employer] [employer] [id number] 2019-Present Medicaid [id number] 1971 Unknown [id number] 1971 Unknown [id number] 1971 Unknown [id number] 1971 Unknown [id number] Unknown Unknown [id number] Unknown [id number] Unknown [id number] Unknown [id number] Social History Date Type Detail Facility Start: 06-22-2020 Tobacco smoking stat us MAIS Unknown if ever smoked [facility] Start: 06-22-2020 History SDOH Financial 3 [facility] Start: 06-22-2020 History SDOH Food Worry 2 [facility] Start: 1970 Sex Assigned At Not on file [place], [place] Start: 04-10-2022 End: 04-20-2022 Exposure to SARS-CoV-2 (event) Not sure [facility] Start: 09-18-2019 End: 01-10-2021 Tobacco smoking status NHIS Current every day smoker [facility] Start: 09-18-2019 End: 06-27-2024 Alcohol intake Not Currently [facility] Start: 09-18-2019 Tobacco use and exposure Smokeless tobacco non-user [facility] Work Phone: Start: 04-20-2022 End: 06-27-2024 Alcohol intake Ex-drinker (finding) [facility] Work Phone: Start: 07-19-2022 History SDOH Food Worry 1 [facility] Work Phone: Start: 04-20-2022 End: 06-27-2024 History of Social function [facility] How often to you hav e a drink containing alcohol? Never [facility] How many standard drinks containing alcohol do you have on a typical day? Patient does not drink [facility] History of tobacco use Cigarette Smoker [facility] Work Phone: Has the [employer], or [employer] threatened to shut off services in your home in past 12Mo No [facility] Work Phone: How hard is it for y ou to pay for the very basics like food, housing, medical care, and heating Not very hard [facility] Work Phone: (I/We) worried henri boyd (my/our) food would run out before (I/we) got money to buy more. Never true [facility] Work Phone: Start: 1970 Sex Assigned At Male W [facility] Start: 02-17-2025 Sex Male (finding) [facility] Clinical Notes 04-20-2022 to 04-29-2024 Emely Amin MD - 04/29/2024 1:00 PM EDTTelephone Encounter - Emily Farris Barrel Cap Setter - 01/12/2024 8:37 AM ESTTelephone Encounter - Yeimy Batista - 01/05/2024 9:33 AM EST Note Date & Type Note Facility 04-29-2024 History of Presen t illness Narrative Images from the original note were not included. 04/29/2024 REFERRING PHYSICIAN: Kelsi Batista MD REASON FOR REFERRAL: Chief Complaint Patient presents with New Patient COPD He says his breathing is okay. He says he has a few "lumps" on his chest that are sore and cause him to have trouble breathing. He says these showed up about 2 months ago. History of Present Illness: Not a very reliable historian. Seems to have some memory issues, asked how long he has been on the oxygen, asked how long he has been on the inhalers, "I do not know" was the answer. Looks like he was hospitalized at [facility] in December, was initially on NIV, discharged on O2. Currently residing at [facility] in [place]. Would like to get a POC for ease of mobility. Would like to get stronger and go home. Says his breathing is "not so good". Cough, congestion, intermittent wheeze. Does not think the inhalers are doing much. 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 ROS: Review of Systems Constitutional: Negative. HENT: Negative. Eyes: Negative. Respiratory: HPI Cardiovascular: Negative. Gastrointestinal: Negative. Endocrine: Negative. Musculoskeletal: Negative. Skin: Negative. Allergic/Immunologic: Negative. Neurological: Negative. Hematological: Negative. Psychiatric/Behavioral: Negative. Past Medical History: Past Medical History: Diagnosis Date CHF (congestive heart failure) (HCC) Chronic respiratory failure (HCC) COPD (chronic obstructive pulmonary disease) (HCC) Mediastinal adenopathy Pleural effusion Pneumonia Polysubstance dependence (HCC) Past Surgical History History reviewed. No pertinent surgical history. Social History: Social History Socioeconomic History Marital status: Single Tobacco Use Smoking status: Every Day Smokeless tobacco: Never Substance and Sexual Activity Alcohol use: Not Currently Medications: Current Outpatient Medications Medication Sig Dispense Refill albuterol 108 (90 Base) MCG/ACT inhaler Inhale 2 puffs every 4 hours as needed for wheezing. 18 g 0 cholecalciferol (Vitamin D-3) 50 MCG (2000 UT) tablet Take 2,000 Units by mouth daily. diclofenac (Voltaren) 0.1 % ophthalmic solution Administer 1 drop into the left eye. Fluticasone-Salmeterol 100-50 MCG/ACT aerosol powder Inhale 1 puff in the morning and 1 puff in the evening. Incruse Ellipta 62.5 MCG/ACT inhalation Inhale 1 puff daily. ipratropium-albuterol (Duo-Neb) 0.5-2.5 mg/3 mL nebulizer solution Inhale 3 mL in the morning and 3 mL at noon and 3 mL in the evening and 3 mL before bedtime. PARoxetine (Paxil) 10 MG tablet 10 mg. traZODone (Desyrel) 50 MG tablet 50 mg. Adpcivwfecn-Ripwbrhwq-Cjqglb (Trelegy Ellipta) 200-62.5-25 MCG/ACT aerosol powder Inhale 1 puff daily. 1 each 11 No current facility-administered medications for this visit. Allergies: No Known Allergies Family History: Family History Problem Relation Name Age of Onset Breast cancer Mother Cataracts Mother COPD Mother Cataracts Father COPD Father Physical Exam: BP 119/77 (04/29/24 1255) Temp Pulse 72 (04/29/24 1255) Resp SpO2 (!) 86 % (04/29/24 1255) Physical Exam Vitals and nursing note reviewed. Constitutional: General: He is not in acute distress. Appearance: Normal appearance. He is not ill-appearing, toxic-appearing or diaphoretic. Comments: In a wheelchair HENT: Head: Normocephalic and atraumatic. Nose: Nose normal. Mouth/Throat: Mouth: Mucous membranes are moist. Pharynx: Oropharynx is clear. No oropharyngeal exudate or posterior oropharyngeal erythema. Eyes: Extraocular Movements: Extraocular movements intact. Conjunctiva/sclera: Conjunctivae normal. Pupils: Pupils are equal, round, and reactive to light. Cardiovascular: Rate and Rhythm: Normal rate and regular rhythm. Heart sounds: Normal heart sounds. Pulmonary: Effort: Pulmonary effort is normal. No tachypnea, accessory muscle usage, prolonged expiration or respiratory distress. Breath sounds: Decreased air movement present. No stridor. No wheezing, rhonchi or rales. Musculoskeletal: General: No swelling. Cervical back: Neck supple. No rigidity. Lymphadenopathy: Cervical: No cervical adenopathy. Skin: General: Skin is warm and dry. Neurological: General: No focal deficit present. Mental Status: He is alert. Psychiatric: Mood and Affect: Mood normal. Behavior: Behavior normal. Radiology: Reviewed the CT chest reports from [facility] PFT: None Echocardiogram: Done at [facility] in November Technically difficult exam due to body habitus. - Exam indication: Initial evaluation of known cardiomyopathy - The left ventricle is normal in size. Left ventricular systolic function is normal. EF = 68 5% (2D 4-ch.) - The right ventricle is mildly dilated. Right ventricular systolic function is normal. RV systolic tissue Doppler velocity is 10.0 cm/s. - There is no pericardial effusion. - The patient has not had a prior echocardiographic exam for comparison. Assessment and Plan: Javier was seen today for new patient and copd. Diagnoses and all orders for this visit: Chronic respiratory failure with hypoxia (HCC) (Primary) - Home Oxygen - Complete PFT pre and post bronchodilator; Future Chronic obstructive pulmonary disease, unspecified COPD type (HCC) Bullous emphysema (HCC) Cigarette nicotine dependence without complication Other orders - Ltfdxrrdmue-Qzrdheutg-Uxcaom (Trelegy Ellipta) 200-62.5-25 MCG/ACT aerosol powder ; Inhale 1 puff daily. Get him a POC for ease of use and mobility, especially while at [facility] to help with rehab Change Advair and Incruse to Trelegy DuoNeb as needed Albuterol as needed PFTs Will need a follow-up CT chest at some point in the near future Needs an alpha-1 test at some point Has to stop smoking Follow-up: Follow up for PFT results. documented in this encounter [facility] 04-29-2024 Note 04/29/2024 REFERRING PHYSICIAN: Kelsi Batista MD REASON FOR REFERRAL: Chief Complaint Patient presents with New Patient COPD He says his breathing is okay. He says he has a few "lumps" on his chest that are sore and cause him to have trouble breathing. He says these showed up about 2 months ago. History of Present Illness: Not a very reliable historian. Seems to have some memory issues, asked how long he has been on the oxygen, asked how long he has been on the inhalers, "I do not know" was the answer. Looks like he was hospitalized at [facility] in December, was initially on NIV, discharged on O2. Currently residing at [facility] in [place]. Would like to get a POC for ease of mobility. Would like to get stronger and go home. Says his breathing is "not so good". Cough, congestion, intermittent wheeze. Does not think the inhalers are doing much. 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 ROS: Review of Systems Constitutional: Negative. HENT: Negative. Eyes: Negative. Respiratory: HPI Cardiovascular: Negative. Gastrointestinal: Negative. Endocrine: Negative. Musculoskeletal: Negative. Skin: Negative. Allergic/Immunologic: Negative. Neurological: Negative. Hematological: Negative. Psychiatric/Behavioral: Negative. Past Medical History: Past Medical History: Diagnosis Date CHF (congestive heart failure) ([facility]) Chronic respiratory failure (HCC) COPD (chronic obstructive pulmonary disease) ([facility]) Mediastinal adenopathy Pleural effusion Pneumonia Polysubstance dependence (HCC) Past Surgical History History reviewed. No pertinent surgical history. Social History: Social History Socioeconomic History Marital status: Single Tobacco Use Smoking status: Every Day Smokeless tobacco: Never Substance and Sexual Activity Alcohol use: Not Currently Medications: Current Outpatient Medications Medication Sig Dispense Refill albuterol 108 (90 Base) MCG/ACT inhaler Inhale 2 puffs every 4 hours as needed for wheezing. 18 g 0 cholecalciferol (Vitamin D-3) 50 MCG (2000 UT) tablet Take 2,000 Units by mouth daily. diclofenac (Voltaren) 0.1 % ophthalmic solution Administer 1 drop into the left eye. Fluticasone-Salmeterol 100-50 MCG/ACT aerosol powder Inhale 1 puff in the morning and 1 puff in the evening. Incruse Ellipta 62.5 MCG/ACT inhalation Inhale 1 puff daily. ipratropium-albuterol (Duo-Neb) 0.5-2.5 mg/3 mL nebulizer solution Inhale 3 mL in the morning and 3 mL at noon and 3 mL in the evening and 3 mL before bedtime. PARoxetine (Paxil) 10 MG tablet 10 mg. traZODone (Desyrel) 50 MG tablet 50 mg. Wajnfgfppwd-Brgslncqv-Xkssze (Trelegy Ellipta) 200-62.5-25 MCG/ACT aerosol powder Inhale 1 puff daily. 1 each 11 No current facility-administered medications for this visit. Allergies: No Known Allergies Family History: Family History Problem Relation Name Age of Onset Breast cancer Mother Cataracts Mother COPD Mother Cataracts Father COPD Father Physical Exam: BP 119/77 (04/29/24 1255) Temp Pulse 72 (04/29/24 1255) Resp SpO2 (!) 86 % (04/29/24 1255) Physical Exam Vitals and nursing note reviewed. Constitutional: General: He is not in acute distress. Appearance: Normal appearance. He is not ill-appearing, toxic-appearing or diaphoretic. Comments: In a wheelchair HENT: Head: Normocephalic and atraumatic. Nose: Nose normal. Mouth/Throat: Mouth: Mucous membranes are moist. Pharynx: Oropharynx is clear. No oropharyngeal exudate or posterior oropharyngeal erythema. Eyes: Extraocular Movements: Extraocular movements intact. Conjunctiva/sclera: Conjunctivae normal. Pupils: Pupils are equal, round, and reactive to light. Cardiovascular: Rate and Rhythm: Normal rate and regular rhythm. Heart sounds: Normal heart sounds. Pulmonary: Effort: Pulmonary effort is normal. No tachypnea, accessory muscle usage, prolonged expiration or respiratory distress. Breath sounds: Decreased air movement present. No stridor. No wheezing, rhonchi or rales. Musculoskeletal: General: No swelling. Cervical back: Neck supple. No rigidity. Lymphadenopathy: Cervical: No cervical adenopathy. Skin: General: Skin is warm and dry. Neurological: General: No focal deficit present. Mental Status: He is alert. Psychiatric: Mood and Affect: Mood normal. Behavior: Behavior normal. Radiology: Reviewed the CT chest reports from [facility] PFT: None Echocardiogram: Done at [facility] in November Technically difficult exam due to body habitus. - Exam indication: Initial evaluation of known cardiomyopathy - The left ventricle is normal in size. Left ventricular systolic function is normal. EF = 68 ? 5% (2D 4-ch.) - The right ventricle is mildly dilated. Right ventricular systolic function is normal. RV systolic tissue Doppler velocity is 10.0 cm/s. - There is no pericardial effusion. - The patient has not had a prior echocardiogra (more content not included)... [facility] 01-12-2024 Miscellaneous Notes Sent letter to patient regarding Pulmonary Rehab requesting response by 01/26/2024. documented in this encounter [facility] 01-05-2024 Note HNO ID: [id number] Author: AGUILAR LOPEZ MD Service: Hospital Medicine Author Type: Physician Type: Progress Notes Filed: 01/05/2024 11:36 Note Text: INPATIENT PROGRESS NOTE CHIEF COMPLAINT: shortness of breath INTERVAL HPI: no new complaints PHYSICAL EXAM: BP 106/78 Pulse 88 Temp (Src) 98.6 (Oral) Resp 20 Ht 6' 0" (1.83m) Wt 146 lb 9.7 oz (66.5kg) SpO2 96% BMI 19.88 kg/(m2). O2 Therapy: Nasal Cannula, Liters: 3 GENERAL: Alert, no distress, cooperative LUNGS: Lungs clear to auscultation, Good diaphragmatic excursion CARDIAC: Normal S1 and S2; no rubs, murmurs, or gallops ABDOMEN: Abdomen soft, non-tender, BS normal, No masses or organomegaly EXTREMITIES:no edema DATA: Diagnostic tests reviewed for today's visit: CBC, Coags, BMP, Mg, Phos Problem List Acute hypercapnic respiratory failure (HCC) (POA: Yes) COPD with exacerbation (HCC) (POA: Yes) Community acquired pneumonia of right lower lobe of lung (POA: Yes) Acute on chronic respiratory failure with hypoxia and hypercapnia (HCC) (POA: Status not on file) Polysubstance (excluding opioids) dependence (HCC) (POA: Status not on file) Chronic diastolic CHF (congestive heart failure) (HCC) (POA: Status not on file) Former smoker (POA: Status not on file) Pleural effusion (POA: Status not on file) MRSA nasal colonization (POA: Status not on file) Mediastinal lymphadenopathy (POA: Status not on file) Assessment/Plan # Acute on chronic hypoxic/hypercapnic respiratory failure required BiPAP in the MICU. Secondary COPD exacerbation. Now weaned to 3L O2 . # Acute COPD exacerbation-finished prednisone for 5 days and azithromycin Patient on Advair and Spiriva duoneb prn # Polysubstance abuse-patient's drug screen from last admission was positive for amphetamines, cocaine and THC # Nasal MRSA positive-received 5 days of nasal mupirocin # Tobacco abuse-patient states he quit smoking a month ago. # Constipation--resolved # mediastinal adenopathy- rpt CT chest in 8 weeks Plan for DC to SNF today Plan of care discussed with: Provider, RN, Patient. SIGNATURE: Aguilar Lopez MD PATIENT NAME: Javier Dickson DATE: January 05, 2024 TIME: 11:34 AM PAGER: [facility] 01-05-2024 Note HNO ID: [id number] Author: CRYSTAL CHARLTON RN Service: Care Management Author Type: Registered Nurse Type: Care Mgt Progress Note Filed: 01/05/2024 12:50 Note Text: CARE MANAGEMENT DISCHARGE NOTE SERVICE DATE: January 05, 2024 SERVICE TIME: 951 Admission Date: 12/27/2023 LOS: 9 days Discharge Arrangement Discharge Arrangement: Extended Care Facility Services Arranged Provider Name: Markellkasi will Ely Caregiver Assessment Transportation Arrangements Transportation Arrangements: Ambulance Transportation Agency and Phone #:: [facility] ( [facility] ) [phone] / [phone] Date of Trip: 01/05/24 Time of Trip: 1400 Type of Service: BLS Non-emergency Is Patient Medicaid Pending?: No Was transportation financial coverage discussed with family?: Patient Mammography Technician Location: [facility] Destination: [facility] Financial Care Management Responsibility: None Handoff Communication: Handoff to: Other Caregiver Other [facility] Additional Information: Met with patient at bedside. Discussed d/c plan of [facility]. Cot transportation arranged for 2 pm thru [facility]. Provided patient with HCPOA packet, address and phone number for facility provided to patient. Transportation packet on chart. Bedside RN to call report to [phone]. , RN, facility and patient are all aware of d/c plan and are in agreement. Discharge summary, d/c order sent electronically to facility. SIGNATURE: Crystal Charlton RN PATIENT NAME: Javier Dickson DATE: January 05, 2024 TIME: 9:52 AM CONTACT #: [phone] [facility] 01-05-2024 Telephone encounter Note Called patient, patient's vm is not set up yet [facility] 01-05-2024 Miscellaneous Notes Called patient, patient's vm is not set up yet Name of caller: Ayleen Contact phone number: [phone] Relationship to Patient: [facility] Home Care Provider: Luis E Practice: [facility] Chief Complaint/Reason for Call: Ayleen called to see if the doctor would follow for home care. I released the message to her about the patient will need an appointment. She said she will note that. Please advise Best time of day caller can be reached: any Patient advised that office/PCP has 24-48 business hours to return their call: No Patients last visit 07/19/22. Please advise. Name of caller: Lucy from [facility] hospital Contact phone number: [phone] opt #5 Relationship to Patient: Lucy from [facility] care Provider: Dr. Batista Practice: [facility] [place] [facility] Chief Complaint/Reason for Call: Lucy from [facility] care calling to see if Dr. Batista will follow the patient for home care. Please advise. Best time of day caller can be reached: any Patient advised that office/PCP has 24-48 business hours to return their call: No documented in this encounter [facility] 01-04-2024 Note HNO ID: [id number] Author: AGUILAR LOPEZ MD Service: Hospital Medicine Author Type: Physician Type: Progress Notes Filed: 01/04/2024 13:49 Note Text: INPATIENT PROGRESS NOTE CHIEF COMPLAINT: shortness of breath INTERVAL HPI: no new complaints Stable on 4 L O2 PHYSICAL EXAM: BP 113/81 Pulse 100 Temp (Src) 98.6 (Temporal) Resp 20 Ht 6' 0" (1.83m) Wt 146 lb 9.7 oz (66.5kg) SpO2 96% BMI 19.88 kg/(m2). O2 Therapy: Nasal Cannula, Liters: 4 GENERAL: Alert, no distress, cooperative LUNGS: Lungs clear to auscultation, Good diaphragmatic excursion CARDIAC: Normal S1 and S2; no rubs, murmurs, or gallops ABDOMEN: Abdomen soft, non-tender, BS normal, No masses or organomegaly EXTREMITIES: no edema DATA: Diagnostic tests reviewed for today's visit: CBC, Coags, BMP, Mg, Phos Problem List Acute hypercapnic respiratory failure (HCC) (POA: Yes) COPD with exacerbation (HCC) (POA: Yes) Community acquired pneumonia of right lower lobe of lung (POA: Yes) Acute on chronic respiratory failure with hypoxia and hypercapnia (HCC) (POA: Status not on file) Polysubstance (excluding opioids) dependence (HCC) (POA: Status not on file) Chronic diastolic CHF (congestive heart failure) (HCC) (POA: Status not on file) Former smoker (POA: Status not on file) Pleural effusion (POA: Status not on file) MRSA nasal colonization (POA: Status not on file) Mediastinal lymphadenopathy (POA: Status not on file) Assessment/Plan # Acute on chronic hypoxic/hypercapnic respiratory failure required BiPAP in the MICU. Secondary COPD exacerbation. Now weaned to 4 L O2 . # Acute COPD exacerbation-finished prednisone for 5 days and azithromycin Patient on Advair and Spiriva duoneb prn # Polysubstance abuse-patient's drug screen from last admission was positive for amphetamines, cocaine and THC # Nasal MRSA positive-received 5 days of nasal mupirocin # Tobacco abuse-patient states he quit smoking a month ago. # Constipation--resolved # mediastinal adenopathy- rpt CT chest in 8 weeks Pt medically stable for DC Will need home O2 at DC Pt was living with his son prior to admission. Now unsure if patient can return with home oxygen. Unable to send him to a homeless nursing home as oxygen cannot be provided. Plan for SNF/ECF at this time Plan of care discussed with: Provider, RN, Patient. SIGNATURE: Aguilar Lopez MD PATIENT NAME: Javier Dickson DATE: January 04, 2024 TIME: 1:47 PM PAGER: [facility] 01-03-2024 Note HNO ID: [id number] Author: CYRSTAL CHARLTON RN Service: Care Management Author Type: Registered Nurse Type: Care Mgt Progress Note Filed: 01/03/2024 14:37 Note Text: CARE MANAGEMENT PROGRESS NOTE SERVICE DATE: 01/03/2024 SERVICE TIME: 1431 LOS: 7 days [place] [facility] Choice Given: Yes Level of Care Discussed: [facility] Financial Disclosure Provided: Yes Financial Disclosure Comments: [facility] cannot provide oxygen to a Homeless nursing home, neither can [facility]. Patient spoke with son yesterday, son still uncertain if patient can return to the home that his son is living at. Discussed d/c to SNF/ECF where they can assist with applying for disability and obtaining housing for patient. Pt. Is in agreement. Pt. [facility]( [facility] facility to [facility] Pt. Chose [facility]. Insurance auth initiated. Discharge plan is SNF LOC pending insurance authorization. Pt. Will need cot transportation at d/c. Will continue to follow. SIGNATURE: Crystal Charlton RN PATIENT NAME: Javier Dickson DATE: January 03, 2024 TIME: 2:31 PM PAGER/CONTACT #: [phone] [facility] 01-03-2024 Note HNO ID: [id number] Author: AGUILAR LOPEZ MD Service: Hospital Medicine Author Type: Physician Type: Progress Notes Filed: 01/03/2024 13:53 Note Text: INPATIENT PROGRESS NOTE CHIEF COMPLAINT: Shortness of breath INTERVAL HPI: no new complaints PHYSICAL EXAM: BP 110/78 Pulse 85 Temp (Src) 97.6 (Temporal) Resp 18 Ht 6' 0" (1.83m) Wt 146 lb 9.7 oz (66.5kg) SpO2 94% BMI 19.88 kg/(m2). O2 Therapy: Nasal Cannula, Liters: 4 GENERAL: Alert, no distress, cooperative LUNGS: improved BS darlyn CARDIAC: Normal S1 and S2; no rubs, murmurs, or gallops ABDOMEN: Abdomen soft, non-tender, BS normal, No masses or organomegaly EXTREMITIES: no edema DATA: Diagnostic tests reviewed for today's visit: CBC, Coags, BMP, Mg, Phos Problem List Acute hypercapnic respiratory failure (HCC) (POA: Yes) COPD with exacerbation (HCC) (POA: Yes) Community acquired pneumonia of right lower lobe of lung (POA: Yes) Acute on chronic respiratory failure with hypoxia and hypercapnia (HCC) (POA: Status not on file) Polysubstance (excluding opioids) dependence (HCC) (POA: Status not on file) Chronic diastolic CHF (congestive heart failure) (HCC) (POA: Status not on file) Former smoker (POA: Status not on file) Pleural effusion (POA: Status not on file) MRSA nasal colonization (POA: Status not on file) Mediastinal lymphadenopathy (POA: Status not on file) Assessment/Plan # Acute on chronic hypoxic/hypercapnic respiratory failure required BiPAP in the MICU. Secondary COPD exacerbation. Now weaned to 4 L O2 . # Acute COPD exacerbation-finished prednisone for 5 days and azithromycin Patient on Advair and Spiriva duoneb prn # Polysubstance abuse-patient's drug screen from last admission was positive for amphetamines, cocaine and THC # Nasal MRSA positive-continue with mupirocin # Tobacco abuse-patient states he quit smoking a month ago. # Constipation--resolved # mediastinal adenopathy- rpt CT chest in 8 weeks Plan for DC home with O2. Pt supposed to go to his Son's house but Son not answering calls. /? SNF Plan of care discussed with: Provider, RN, Patient. SIGNATURE: Aguilar Lopez MD PATIENT NAME: Javier Dickson DATE: January 03, 2024 TIME: 1:51 PM PAGER: [facility] 01-02-2024 Note HNO ID: [id number] Author: AGUILAR LOPEZ MD Service: Hospital Medicine Author Type: Physician Type: Progress Notes Filed: 01/02/2024 15:44 Note Text: INPATIENT PROGRESS NOTE CHIEF COMPLAINT: shortness of breath INTERVAL HPI: NO new complaints. SOB improving PHYSICAL EXAM: BP 115/83 Pulse 81 Temp (Src) 99 (Temporal) Resp 18 Ht 6' 0" (1.83m) Wt 154 lb 12.2 oz (70.2kg) SpO2 95% BMI 20.99 kg/(m2). O2 Therapy: Nasal Cannula, Liters: 4 GENERAL: Alert, no distress, cooperative LUNGS: diminished BS darlyn CARDIAC: Normal S1 and S2; no rubs, murmurs, or gallops ABDOMEN: Abdomen soft, non-tender, BS normal, No masses or organomegaly EXTREMITIES: no edema DATA: Diagnostic tests reviewed for today's visit: CBC, Coags, BMP, Mg, Phos Problem List Acute hypercapnic respiratory failure (HCC) (POA: Yes) COPD with exacerbation (HCC) (POA: Yes) Community acquired pneumonia of right lower lobe of lung (POA: Yes) Acute on chronic respiratory failure with hypoxia and hypercapnia (HCC) (POA: Status not on file) Polysubstance (excluding opioids) dependence (HCC) (POA: Status not on file) Chronic diastolic CHF (congestive heart failure) (HCC) (POA: Status not on file) Former smoker (POA: Status not on file) Pleural effusion (POA: Status not on file) MRSA nasal colonization (POA: Status not on file) Mediastinal lymphadenopathy (POA: Status not on file) Assessment/Plan # Acute on chronic hypoxic/hypercapnic respiratory failure required BiPAP in the MICU. Secondary COPD exacerbation. Now weaned to 4 L O2 . # Acute COPD exacerbation-finished prednisone for 5 days and azithromycin Patient on Advair and Spiriva duoneb prn # Polysubstance abuse-patient's drug screen from last admission was positive for amphetamines, cocaine and THC # Nasal MRSA positive-continue with mupirocin # Tobacco abuse-patient states he quit smoking a month ago. # Constipation--resolved # mediastinal adenopathy- rpt CT chest in 8 weeks Plan for DC home with O2. Pt supposed to go to his Son's house but Son not answering calls. Seen by SW and plan for pt to go to [facility] Will need home O2 set up prior to discharge Plan of care discussed with: Provider, RN, Patient. SIGNATURE: Aguilar Lopez MD PATIENT NAME: Javier Dickson DATE: January 02, 2024 TIME: 3:37 PM PAGER: [facility] 01-02-2024 Note HNO ID: [id number] Author: CHUYITA HARRINGTON LSW Service: Care Management Author Type: Rv Technician Type: Care Mgt Progress Note Filed: 01/02/2024 13:56 Note Text: CARE MANAGEMENT PROGRESS NOTE SERVICE DATE: 01/02/2024 SERVICE TIME: 1:54 PM LOS: 6 days Needs Prior to Discharge: To Be Determined;Discharge Transportation;Oxygen Set-up SW called [facility], they are able to accept pts with home O2. [facility] just reports that the pt must be independent and able to care for self. SIGNATURE: ROLF Jane PATIENT NAME: Javier Dickson DATE: January 02, 2024 TIME: 1:54 PM PAGER/CONTACT #: [phone] [facility] 01-02-2024 Note HNO ID: [id number] Author: CRYSTAL CHARLTON RN Service: Care Management Author Type: Registered Nurse Type: Care Mgt Progress Note Filed: 01/02/2024 10:38 Note Text: CARE MANAGEMENT PROGRESS NOTE SERVICE DATE: 01/02/2024 SERVICE TIME: 03736 LOS: 6 days Needs Prior to Discharge: To Be Determined;Discharge Transportation;Oxygen Set-up Chart reviewed, no return call from patient's son Andrea. Attempted to contact Andrea today. No answer, unable to leave a voice mail d/t mail box being full. Unable to determine if patient has somewhere to stay at d/c. Will ask SW to assist with Housing/Homeless nursing home. SIGNATURE: Crystal Charlton RN PATIENT NAME: Javier Dickson DATE: January 02, 2024 TIME: 10:35 AM PAGER/CONTACT #: [phone] [facility] 01-01-2024 Note HNO ID: [id number] Author: CRYSTAL CHARLTON RN Service: Care Management Author Type: Registered Nurse Type: Care Mgt Progress Note Filed: 01/01/2024 16:30 Note Text: CARE MANAGEMENT PROGRESS NOTE SERVICE DATE: 01/01/2024 SERVICE TIME: 1618 LOS: 5 days Needs Prior to Discharge: To Be Determined;Discharge Prescriptions;Oxygen Set-up;Discharge Transportation Chart reviewed, spoke with patient at bedside. States he still has not spoken to his son Andrea about d/c. CM and SW unable to find a contact number for patient's son. Pt. States he has his number in his bag. Handed patient his bag and requested he find his son's contact number. Placed TC to patient's son Andrea discussed d/c plan to return to sons with Home oxygen and HHC services. Andrea reports that the house he lives in is not his house, and will need to check with the owners to make sure patient can return. Provided patient with information phone numbers for transportation thru his [employer] insurance, and PCP list. Pt. Has not followed up with his PCP for a few years, will not follow for HHC. Updated Dr. Chappell, Dr. Chappell is in agreement to follow for HHC until patient gets established with a PCP. Will discuss with son and schedule a PCP appointment prior to d/c. [employer] has delivered a portable oxygen take to patient's room, will deliver a concentrator and nebulizer to patient's home once location confirmed. Anticipate d/c tomorrow once service address confirmed with [employer] and HHC. Will continue to follow. SIGNATURE: Crystal Charlton RN PATIENT NAME: Javier Dickson DATE: January 01, 2024 TIME: 4:18 PM PAGER/CONTACT #: [phone] [facility] 01-01-2024 Note HNO ID: [id number] Author: KIMI ZAPATA RN Service: ? Author Type: Registered Nurse Type: Nursing Progress Note Filed: 01/01/2024 12:09 Note Text: O2 Saturation test Resting on 4L 93% Resting RA 91% Walking 4L 92% Walking RA 87% [facility] 01-01-2024 Miscellaneous Notes Hello there! (Spoke with: Javier ) My name is Beto Crenshaw and I'm calling from [facility]. Your doctor wants to make sure you have the best care at home after leaving the hospital. Do you have a few minutes to chat about what to expect from home care? yes Before we start, have you received help from a home care company in the last 60 days? They might have assisted with things like bathing, medication, checking your blood pressure, or exercises. yes Our goal is to make your transition home smooth. A SN will visit you within 2 days of leaving the hospital to get you started with home care. Is that okay with you? yes They'll contact you the night before or the morning of the visit to tell you when they'll arrive. What address will we be seeing you at? [place] [address] Do you have any upcoming appointments or things we need to schedule around? Not sure When they contact you, the number might be unfamiliar or blocked. If they leave a message, please reply so we can plan your visit. Homecare helps with your recovery. During the first visit, the SN will talk with you, set goals, and plan your care. This visit might take one and a half to three hours. They'll figure out which services you need and how often they will see you. The purpose of homecare is to teach you or a family member or friend to manage your condition and provide any ordered treatments. Do you have someone to assist you at home? yes They'll need to see your discharge instructions and medication bottles for any medications you are taking, both prescription and over the counter. Can you have those ready? yes Any questions so far? no We understand it's not easy having new people in your home while you're recovering. Our caregivers will treat you with dignity and respect, and we ask the same in return. The safety of our patients and caregivers is important to us. We ask that you put away and secure any animals or weapons in the home prior to our caregivers arriving. We also ask that you, or anyone else in the home, are not under the influence of any substances, refrain from raising your voice, using profanity, or being threatening or aggressive during visits. If you don't have questions, I have just one more. Did you get a flu shot this year? yes Where did you get it? Not sure documented in this encounter [facility] 01-01-2024 Telephone encounter Note Name of caller: Ayleen Contact phone number: [phone] Relationship to Patient: [facility] Provider: Luis E Practice: [facility] Chief Complaint/Reason for Call: Ayleen called to see if the doctor would follow for home care. I released the message to her about the patient will need an appointment. She said she will note that. Please advise Best time of day caller can be reached: any Patient advised that office/PCP has 24-48 business hours to return their call: No [facility] [employer] 01-01-2024 Note HNO ID: [id number] Author: KAROLINA CHAPPELL MD Service: Hospital Medicine Author Type: Physician Type: Progress Notes Filed: 01/01/2024 18:12 Note Text: Subjective - follow up for [facility], this is day 5, chart reviewed. PAST MEDICAL HISTORY Diagnosis Date Bowel obstruction (HCC) COPD (chronic obstructive pulmonary disease) (HCC) Pt admit to ICU on 12/27 - '#Acute hypoxic hypercapnic respiratory failure 2/ COPD -CAP with a high risk for MRSA (Less likely HF exacerbation due to recent ECHO and clinical sx) Plan -Admit to MICU -Continue Bipap. Will give thin liquids now.Then resume Bipap after two hours and read VBG. -Initiate Duonebs and IV steroids Pending -CRP -Blood cultures -Sputum culture -Procalcitonin -Urine Strep/Legionella -MRSA nares -VBG -CT Chest Admit to MICU Neuro: Alert CV: maintain MAP >65. Monitor Troponin. Avoid hypovolemia. Recent Echo 11/14/2023 EF 68. Discontinue lasix Resp:Bipap maintain to goal SPO2 88-92%. Duonebs and IV steroids. Ordered CT chest for further assessment of pleural effusion, PNA and nodules and to further rule out PE. ID: Ceftriaxone and Vancomycin due recent hospitalization and recent MRSA nares positive. Pending CRP, blood cultures, sputum cultures. Urine strep, legionella and MRSA nares. Pro calcitonin and CRP for de-escalations. GI: Thin liquid diet then after 2 hours can resume Bipap with NPO /electrolytes: Monitor BMP as needed Hematology:Concern for risk of oncologic process. Chest CT for further details MSK: PT/OT when needed. DVT ultrasound negative Endo: n/a' As per [facility] on 12/31 - '#Acute hypoxemic respiratory failure with hypercapnia requiring BiPAP and MICU due to COPD exacerbation # Emphysema - Still breathless and off baseline - Satting 95% on 4 L. New requirement. Improving. Wean down as able to target sats of 88 to 92%. Communicated with nurse. - CT chest with severe emphysema and large bullae - S/p azithromycin 500 mg IV 12/31 - Scheduled nebulizers every 4 hours - Continue prednisone 40 mg p.o. daily - Pulm following. OP pulm with PFT scheduled - To resume Advair, Spiriva, as needed albuterol upon discharge #Constipation. Improved. Continue MiraLAX #History of polysubstance use. #Former cigarette smoker. Quit 1 month ago. #Mediastinal lymphadenopathy. 1.[address] chest in 8 weeks. Follow-up with pulm outpatient #Nasal MRSA colonization. Continue Bactroban As per Pulm on 01/01 - '1) Acute (on suspected chronic) mixed hypoxic AND hypercapnic respiratory failure 12/15 #2 - improved off BiPAP and now stable on 4L NC. Continue to wean O2 as able to room air and keep sats > 90%. Continue with DuoNebs QID and Albuterol PRN. Add Pulmicort (patient is on Advair at baseline). Encourage use of both acapella and IS Q1H. Increase activity as tolerated / up out of bed. Anticipate patient will need home-going oxygen. Check ambulatory pulse oximetry prior to hospital discharge. Discussed the possibility of getting the patient approved with a home NIV, though he is not keen on wearing a mask and is therefore, not interested at this time. 2) Bullous Emphysema / COPD (unknown FEV1) with acute exacerbation - resolved with current treatment plan. Patient is not actively bronchospastic on my exam. Patient completed a 5 day burst of systemic steroids yesterday, 12/31. Continue bronchodilators outlined above. Patient completed 5 days of empiric Azithromycin yesterday (12/31), which also has anti-inflammatory effects. Consult Pulmonary Rehab AND encourage out-patient participation in their program. Patient has a follow up appointment with Harley OLMEDO in our OP clinic) on Wednesday 01/10 at 1:30 PM. Discharge patient home on Advair, Spiriva and PRN Albuterol as he came in on. 3) Mediastinal lymphadenopathy (up to 1.3 cm) - suspect reactive. Recommend repeat imaging in 6-8 weeks for on-going surveillance (which I ordered in [facility]). 4) Small right pleural effusion - s/p 20 mg lasix IVP x 1 12/28. No need for thoracentesis at this time as current risks outweigh any expected benefits. 5) Positive MRSA/MSSA nasal swab by PCR - continue intranasal Bactroban BID x 10 doses 6) Former Smoker - patient previously smoked half a pack per day since age of 10, and recently quit in November. Congratulated patient and encouraged on-going cessation. 7) DVT Prophylaxis - Continue SQ Lovenox 8) Multiple Medical Problems - Per primary team 9) Full Code 10) Discharge Planning - Given that the patient remains stable from a pulmonary standpoint and that we have no further new recommendations at this time, we will sign off' Per RN 01/01 - O2 Saturation test Resting on 4L 93% Resting RA 91% Walking 4L 92% Walking RA 87% Severe protein calorie malnutrition per Nutrition services on 01/01. Discussed with care manager 01/01 - 'Chart reviewed, spoke with patient at bedside. States h (more content not included)... [facility] 01-01-2024 Note HNO ID: [id number] Author: DEANNA FLORES APRN.VANESSA Service: Pulmonary Disease Author Type: Nurse Practitioner Type: Progress Notes Filed: 01/01/2024 10:52 Note Text: PULMONARY PROGRESS NOTE [facility] ([place], [place]) SERVICE DATE: January 01, 2024 SERVICE TIME: 10:22 AM Subjective Patient seen and examined today for pulmonary follow up. Patient states that his breathing is overall much improved from when he first came in, though he still has periods of worsening dyspnea. +Still with intermittent wheezing. +Dry cough, no phlegm. +Occasional chills No chest pain or fevers. Patient states that he quit smoking in November. Objective OBJECTIVE Current Facility-Administered Medications Medication Dose Route Frequency Provider Last Rate Last Admin aluminum-magnesium hydroxide-simethicone 200-200-20 mg/5 mL 30 mL 30 mL ORAL q 6 H PRN Raven Lara APRN.SECURITY MONITOR 30 mL at 12/31/23 0243 polyethylene glycol 3350 17 g packet 17 g ORAL DAILY Aguilar Lopez MD ipratropium-albuterol 3 mL nebulizer solution (DUONEB) 3 mL INHALATION QID Kasia Abarca PA-C 3 mL at 01/01/24 0800 mupirocin 2 % 0.5 g nasal ointment (BACTROBAN) 0.5 g NASAL BID Kasia Abarca PA-C 0.5 g at 01/01/24 0756 NaCl 0.9% iv flush bag 20 mL INTRAVENOUS PRN Radha Sandhu MD enoxaparin 40 mg injection (LOVENOX) 40 mg SUBCUTANEOUS q 24 HR Radha Sandhu MD 40 mg at 01/01/24 0517 ipratropium-albuterol 3 mL nebulizer solution (DUONEB) 3 mL INHALATION q 4 H PRN Radha Sandhu MD 3 mL at 12/29/23 0955 INTAKE AND OUTPUT Intake/Output Summary (Last 24 hours) at 01/01/2024 1022 Last data filed at 01/01/2024 0916 Gross per 24 hour Intake 840 ml Output 475 ml Net 365 ml New Radiology Films: CT Chest 12/27/23: Severe emphysema. 9.4 cm bulla at the left apex. Small right pleural effusion with subjacent compressive atelectasis. LLE US 12/27/23: Negative study for proximal DVT in the left lower extremity. Negative calf DVT in the left lower extremity. Negative study for superficial thrombophlebitis in the imaged segments of the left lower extremity. CXR 12/27/23: Findings suggestive of pulmonary edema with a small right pleural effusion. New Micro: New Labs: BNP: 3703 Procalcitonin: 0.07 CRP: 0.5 BMP: Glucose (mg/dL) Date Value 12/30/2023 98 06/21/2020 107 Potassium (mmol/L) Date Value 12/30/2023 4.5 06/21/2020 4.0 Sodium (mmol/L) Date Value 12/30/2023 140 06/21/2020 140 Chloride (mmol/L) Date Value 12/30/2023 96 06/21/2020 103 CO2 (mmol/L) Date Value 12/30/2023 38 06/21/2020 28 Creatinine (mg/dL) Date Value 12/30/2023 0.73 06/21/2020 0.90 BUN (mg/dL) Date Value 12/30/2023 21 06/21/2020 15 Anion Gap (mmol/L) Date Value 12/30/2023 6 06/21/2020 9 Calcium (mg/dL) Date Value 06/21/2020 9.1 Calcium, Total (mg/dL) Date Value 12/30/2023 8.6 CBC: Hemoglobin (g/dL) Date Value 12/30/2023 12.7 12/28/2023 12.4 12/27/2023 13.7 HGB (g/dL) Date Value 06/21/2020 13.2 Hematocrit (%) Date Value 12/30/2023 42.8 12/28/2023 41.4 12/27/2023 45.9 06/21/2020 39.4 WBC Date Value 12/30/2023 12.01 k/uL 12/28/2023 13.26 k/uL 12/27/2023 8.60 k/uL 06/21/2020 6.63 thou/cmm Vital Signs 12/31/23 1920 01/01/24 0000 01/01/24 0621 01/01/24 0803 BP: 103/76 119/88 Pulse: 89 94 95 96 Resp: 20 20 20 22 Temp: 37.1 ?C (98.7 ?F) 36.7 ?C (98.1 ?F) TempSrc: Oral Temporal SpO2: 95% 95% 97% 96% Weight: 70.2 kg (154 lb 12.2 oz) Height: PHYSICAL EXAM: Vitals: Reviewed above. Patient is on 4L NC. GENERAL: AAOx3, pleasant, sitting up on the edge of the bed eating a burger in NAD RESPIRATORY: CTAB A AND P. Respirations are even AND unlabored at rest. No wheezing, accessory muscle use, pursed lip breathing or conversational dyspnea. As above, patient is on 4L NC. +Clubbing of bilateral digits. CARDIOVASCULAR: Normal S1S2, RRR. No edema. GI: Abdomen soft, nondistended, nontender, bowel sounds present EXTREMITIES: No clubbing or cyanosis. Moves all extremities equal Assessment and Plan: ? 1) Acute (on suspected chronic) mixed hypoxic AND hypercapnic respiratory failure 2/2 #2 - improved off BiPAP and now stable on 4L NC. Continue to wean O2 as able to room air and keep sats > 90%. Continue with DuoNebs QID and Albuterol PRN. Add Pulmicort (patient is on Advair at baseline). Encourage use of both acapella and IS Q1H. Increase activity as tolerated / up out of bed. Anticipate patient will need home-going oxygen. Check ambulatory pulse oximetry prior to hospital discharge. Discussed the possibility of getting the patient approved with a home NIV, though he is not keen on wearing a mask and is therefore, not interested at this time. 2) Bullous Emphysema / COPD (unknown FEV1) with acute exacerbation - resolved with current treatment plan. Patient is not actively bronchospastic on my exam. Patient completed a 5 day burst of systemic (more content not included)... [facility] 01-01-[address] Capellan, Please sign the orders for Javier Dickson (f/u CT chest in 6 weeks for resolution of ZACHERY) The patient will also need a follow up with our office afterwards. Thank you! Deanna Flores APRN.CNP January 01, 2024 10:46 AM documented in this encounter [facility] 12-31-2023 Note HNO ID: [id number] Author: CHELI CEE MD Service: Hospital Medicine Author Type: Physician Type: Progress Notes Filed: 12/31/2023 11:01 Note Text: INPATIENT HOSPITAL MEDICINE PROGRESS NOTE Subjective Shortness of breath is better. No pains. Had a BM. Breathing is not back to baseline. Objective PHYSICAL EXAM: BP 105/73 Pulse 90 Temp (Src) 98.7 (Temporal) Resp 20 Ht 6' 0" (1.83m) Wt 160 lb 7.9 oz (72.8kg) SpO2 100% BMI 21.76 kg/(m2). O2 Therapy: Nasal Cannula, Liters: 4 General: No acute distress Pulm: Bilateral wheeze. Bibasilar rales posteriorly. CV: RRR Abd: Soft, non-tender, non-distended. BS+ Ext: Bipedal edema Neuro: AANDO DATA: LABORATORY TESTS: CBC: Recent Labs 12/30/23 0322 12/28/23 0412 12/27/23 0211 WBC 12.01* 13.26* 8.60 HB 12.7* 12.4* 13.7 PLT 306 291 328 MCV 101.9* 101.7* 101.5* NEUTP -- -- 82.5 ABSNEUT -- -- 7.09 LYMPHP -- -- 7.6 EODINP -- -- 1.2 CHEM: Recent Labs 12/30/23 0322 12/28/23 0412 12/27/23 0841 12/27/23 0211 NA 140 139 -- 142 K 4.5 4.6 -- 4.4 CA 8.6 8.4* -- 8.8 MG -- -- 1.9 -- P -- -- 3.4 -- ANION 6* 6* -- 5* CHLOR 96* 96* -- 100 CO2 38* 37* -- 37* GLUC 98 108* -- 94 BUN 21 22 -- 14 CREAT 0.73 0.73 -- 0.74 HEPATIC: No results for input(s): "ALT", "AST", "TBILI", "ALKPHOS", "ALB", "TPROT", "LIPASE" in the last 168 hours. URINALYSIS: Recent Labs 12/27/23 0606 SPGR 1.005 LEUKEST Negative UWBC 0-5 /HPF URBC 0-3 /HPF UHB Negative UPROT Negative UGLUC Negative UKET Negative COAG: No results for input(s): "APTT", "INR" in the last 168 hours. CARDIAC: Recent Labs 12/27/23 0211 PBNP 3,703* Imaging: CT CHEST W IVCON Result Date: 12/27/2023 IMPRESSION: Severe emphysema. 9.4 cm bulla at the left apex. Small right pleural effusion with subjacent compressive atelectasis. US DVT LOWER LEFT Result Date: 12/27/2023 IMPRESSION: Negative study for proximal DVT in the left lower extremity. Negative calf DVT in the left lower extremity. Negative study for superficial thrombophlebitis in the imaged segments of the left lower extremity. XR CHEST 1V FRONTAL Result Date: 12/27/2023 IMPRESSION: Findings suggestive of pulmonary edema with a small right pleural effusion. Blood and Urine Culture: Positive Micro-30 Days No results found for the last 720 hours. Problem list Acute hypercapnic respiratory failure (HCC) (POA: Yes) COPD with exacerbation (HCC) (POA: Yes) Community acquired pneumonia of right lower lobe of lung (POA: Yes) Acute on chronic respiratory failure with hypoxia and hypercapnia (HCC) (POA: Status not on file) Polysubstance (excluding opioids) dependence (HCC) (POA: Status not on file) Chronic diastolic CHF (congestive heart failure) (HCC) (POA: Status not on file) Former smoker (POA: Status not on file) Pleural effusion (POA: Status not on file) MRSA nasal colonization (POA: Status not on file) Mediastinal lymphadenopathy (POA: Status not on file) Assessment and plan: #Acute hypoxemic respiratory failure with hypercapnia requiring BiPAP and MICU due to COPD exacerbation # Emphysema - Still breathless and off baseline - Satting 95% on 4 L. New requirement. Improving. Wean down as able to target sats of 88 to 92%. Communicated with nurse. - CT chest with severe emphysema and large bullae - S/p azithromycin 500 mg IV 12/31 - Scheduled nebulizers every 4 hours - Continue prednisone 40 mg p.o. daily - Pulm following. OP pulm with PFT scheduled - To resume Advair, Spiriva, as needed albuterol upon discharge #Constipation. Improved. Continue MiraLAX #History of polysubstance use. #Former cigarette smoker. Quit 1 month ago. #Mediastinal lymphadenopathy. 1.[address] chest in 8 weeks. Follow-up with pulm outpatient #Nasal MRSA colonization. Continue Bactroban Plan of care discussed with: Provider, RN, Patient. QUALITY METRICS: VTE Prophylaxis: Lovenox 40mg Sub Q Daily Disposition: Home Functional Status Prior to Admit: Independent. Lives with son Code status: Full code Disclaimer This dictation was created using voice recognition software. Phonetic and/or minor grammatical errors may exist. SIGNATURE: Cheli Cee MD PATIENT NAME: Javier Dickson DATE: 12/31/2023 TIME: 10:[address] [facility] 12-30-2023 Note HNO ID: [id number] Author: CHELI CEE MD Service: Hospital Medicine Author Type: Physician Type: Progress Notes Filed: 12/30/2023 17:26 Note Text: INPATIENT HOSPITAL MEDICINE PROGRESS NOTE Subjective Feeling better today today but remains breathless. Shortness of breath is far from baseline. Nonproductive cough. Had a BM. Leg swelling is improving. Objective PHYSICAL EXAM: BP 117/75 Pulse 87 Temp (Src) 99.1 (Temporal) Resp 20 Ht 6' 0" (1.83m) Wt 138 lb 14.2 oz (63.0kg) SpO2 96% BMI 18.83 kg/(m2). O2 Therapy: Nasal Cannula, Liters: 4 General: No acute distress Pulm: Bilateral wheeze. Bibasilar rales posteriorly. CV: RRR Abd: Soft, non-tender, non-distended. BS+ Ext: Bipedal edema Neuro: AANDO DATA: LABORATORY TESTS: CBC: Recent Labs 12/30/2332112/28/2341112/27/23210 WBC 12.01* 13.26* 8.60 HB 12.7* 12.4* 13.7 PLT 306 291 328 MCV 101.9* 101.7* 101.5* NEUTP -- -- 82.5 ABSNEUT -- -- 7.09 LYMPHP -- -- 7.6 EODINP -- -- 1.2 CHEM: Recent Labs 12/30/2332112/28/2341112/27/23 0841 12/27/23210 NA 140 139 -- 142 K 4.5 4.6 -- 4.4 CA 8.6 8.4* -- 8.8 MG -- -- 1.9 -- P -- -- 3.4 -- ANION 6* 6* -- 5* CHLOR 96* 96* -- 100 CO2 38* 37* -- 37* GLUC 98 108* -- 94 BUN 21 22 -- 14 CREAT 0.73 0.73 -- 0.74 HEPATIC: No results for input(s): "ALT", "AST", "TBILI", "ALKPHOS", "ALB", "TPROT", "LIPASE" in the last 168 hours. URINALYSIS: Recent Labs 12/27/23 0606 SPGR 1.005 LEUKEST Negative UWBC 0-5 /HPF URBC 0-3 /HPF UHB Negative UPROT Negative UGLUC Negative UKET Negative COAG: No results for input(s): "APTT", "INR" in the last 168 hours. CARDIAC: Recent Labs 12/27/23 0211 PBNP 3,703* Imaging: CT CHEST W IVCON Result Date: 12/27/2023 IMPRESSION: Severe emphysema. 9.4 cm bulla at the left apex. Small right pleural effusion with subjacent compressive atelectasis. US DVT LOWER LEFT Result Date: 12/27/2023 IMPRESSION: Negative study for proximal DVT in the left lower extremity. Negative calf DVT in the left lower extremity. Negative study for superficial thrombophlebitis in the imaged segments of the left lower extremity. XR CHEST 1V FRONTAL Result Date: 12/27/2023 IMPRESSION: Findings suggestive of pulmonary edema with a small right pleural effusion. Blood and Urine Culture: Positive Micro-30 Days No results found for the last 720 hours. Problem list Acute hypercapnic respiratory failure (HCC) (POA: Yes) COPD with exacerbation (HCC) (POA: Yes) Community acquired pneumonia of right lower lobe of lung (POA: Yes) Acute on chronic respiratory failure with hypoxia and hypercapnia (HCC) (POA: Status not on file) Polysubstance (excluding opioids) dependence (HCC) (POA: Status not on file) Chronic diastolic CHF (congestive heart failure) (HCC) (POA: Status not on file) Former smoker (POA: Status not on file) Pleural effusion (POA: Status not on file) MRSA nasal colonization (POA: Status not on file) Mediastinal lymphadenopathy (POA: Status not on file) Assessment and plan: #Acute hypoxemic respiratory failure with hypercapnia requiring BiPAP and MICU due to COPD exacerbation - Satting 92% on 3 L. New requirement - CT chest with severe emphysema and large bullae - Continue azithromycin 500 mg IV 12/31 - Scheduled nebulizers every 4 hours - Continue prednisone 40 mg p.o. daily - Pulm following. OP pulm with PFT scheduled -To resume Advair, Spiriva, as needed albuterol upon discharge #Constipation. Improved. Continue MiraLAX #History of polysubstance use. #Former cigarette smoker. Quit 1 month ago. #Mediastinal lymphadenopathy. 1.[address] chest in 8 weeks. Follow-up with pulm outpatient #Nasal MRSA colonization. Continue Bactroban Plan of care discussed with: Provider, RN, Patient. QUALITY METRICS: VTE Prophylaxis: Lovenox 40mg Sub Q Daily Disposition: Home Functional Status Prior to Admit: Independent. Lives with son Code status: Full code Disclaimer This dictation was created using voice recognition software. Phonetic and/or minor grammatical errors may exist. SIGNATURE: Cheli Cee MD PATIENT NAME: Javier Dickson DATE: 12/30/2023 TIME: 5:[address] [facility] 12-30-2023 Note HNO ID: [id number] Author: JAMEEL SCHULZ RN Service: Care Management Author Type: Registered Nurse Type: Care Mgt Progress Note Filed: 12/30/2023 15:38 Note Text: CARE MANAGEMENT PROGRESS NOTE SERVICE DATE: 12/30/2023 SERVICE TIME: 3:31 PM LOS: 3 days Needs Prior to Discharge: Home Care Order;Desat Study;Discharge Prescriptions;Equipment Delivery;Other: See Comment (CERTIFICATE OF MEDICAL NECESSITY FOR HOMEGOING OXYGEN ON FRONT OF PAPER CHART tb copleted by physician) DC plan home with [facility] home care (will need home care orders sn and therapies) and if requires home oxygen [employer] is following and needs the above information. Dme ordered already in [place]. SIGNATURE: Jameel Schulz RN PATIENT NAME: Javier Dickson DATE: December 30, 2023 TIME: 3:30 PM PAGER/CONTACT #: [phone] [facility] 12-29-2023 Note HNO ID: [id number] Author: AGUILAR LOPEZ MD Service: Hospital Medicine Author Type: Physician Type: Progress Notes Filed: 12/29/2023 16:57 Note Text: INPATIENT PROGRESS NOTE CHIEF COMPLAINT: shortness of breath INTERVAL HPI: no new complaints . Still feels very short of breath. No fever chills or cough. Patient weaned to 3 L of oxygen today. Patient reports no bowel movement since admission PHYSICAL EXAM: BP 106/70 Pulse 101 Temp (Src) 97.5 (Temporal) Resp 18 Ht 6' 0" (1.83m) Wt 138 lb 14.2 oz (63.0kg) SpO2 94% BMI 18.83 kg/(m2). O2 Therapy: Nasal Cannula, Liters: (S) 3 GENERAL: Alert, no distress, cooperative LUNGS: Minich breath sounds bilaterally CARDIAC: Normal S1 and S2; no rubs, murmurs, or gallops ABDOMEN: Abdomen soft, non-tender, BS normal, No masses or organomegaly EXTREMITIES: No edema NEURO: Cranial nerves II-XII intact DATA: Diagnostic tests reviewed for today's visit: CBC, Coags, BMP, Mg, Phos Recent Labs 12/28/23 0412 12/27/23 0841 12/27/23 0211 WBC 13.26* -- 8.60 HB 12.4* -- 13.7 HCT 41.4 -- 45.9 PLT 291 -- 328 NA 139 -- 142 K 4.6 -- 4.4 CHLOR 96* -- 100 CO2 37* -- 37* BUN 22 -- 14 CREAT 0.73 -- 0.74 GLUC 108* -- 94 CA 8.4* -- 8.8 MG -- 1.9 -- P -- 3.4 -- Problem List Acute hypercapnic respiratory failure (HCC) (POA: Yes) COPD with exacerbation (HCC) (POA: Yes) Community acquired pneumonia of right lower lobe of lung (POA: Yes) Acute on chronic respiratory failure with hypoxia and hypercapnia (HCC) (POA: Status not on file) Polysubstance (excluding opioids) dependence (HCC) (POA: Status not on file) Chronic diastolic CHF (congestive heart failure) (HCC) (POA: Status not on file) Former smoker (POA: Status not on file) Pleural effusion (POA: Status not on file) MRSA nasal colonization (POA: Status not on file) Mediastinal lymphadenopathy (POA: Status not on file) Assessment/Plan # Acute on chronic hypoxic/hypercapnic respiratory failure required BiPAP in the MICU. Secondary COPD exacerbation. Now weaned to 3 L O2 . # Acute COPD exacerbation-continue with prednisone for 5 days Continue with bronchodilators. Patient on Advair and Spiriva at home. Patient on azithromycin for anti-inflammatory effects through 12/31 # Polysubstance abuse-patient's drug screen from last admission was positive for amphetamines, cocaine and a head CT. No Drug screen ordered on this admission. # Nasal MRSA positive-continue with mupirocin # Tobacco abuse-patient states he quit smoking a month ago. # Constipation--will add MiraLAX Continue to monitor for clinical improvement. Patient will need home oxygen evaluation prior to discharge. Plan of care discussed with: Provider, RN, Patient. SIGNATURE: Aguilar Lopez MD PATIENT NAME: Javier Dickson DATE: December 29, 2023 TIME: 4:53 PM PAGER: [facility] 12-29-2023 Note HNO ID: [id number] Author: CRYSTAL CHARLTON RN Service: Care Management Author Type: Registered Nurse Type: Care Mgt Progress Note Filed: 12/29/2023 15:33 Note Text: CARE MANAGEMENT PROGRESS NOTE SERVICE DATE: 12/29/2023 SERVICE TIME: 1527 LOS: 2 days Needs Prior to Discharge: To Be Determined;Desat Study;Home Care Order;OT/PT Evaluation;Oxygen Set-up;Discharge Prescriptions;Equipment Delivery;Other: See Comment (Medical Clearance) Chart reviewed, patient admitted secondary to acute hypoxic and hypercapnic respiratory failure, COPD exacerbation. Met with patient at bedside, discussed discharge plan of home with [facility], st cane and bedside commode, possible home oxygen. [employer] is following for possible home oxygen needs. Pt. Will need a CMN completed prior to obtaining home oxygen. Discharge plan is home with [facility], equipment thru [employer], and home oxygen thru [employer]. Will continue to follow. SIGNATURE: Crystal Charlton RN PATIENT NAME: Javier Dickson DATE: December 29, 2023 TIME: 3:25 PM PAGER/CONTACT #: [phone] [facility] 12-28-2023 Note HNO ID: [id number] Author: AGUILAR LOPEZ MD Service: Hospital Medicine Author Type: Physician Type: Progress Notes Filed: 12/28/2023 14:01 Note Text: INPATIENT PROGRESS NOTE CHIEF COMPLAINT: Shortness of breath INTERVAL HPI: Patient just finished working with outpatient therapy. Denies any chest pain or shortness of breath. Remains on 4 L of oxygen saturating 90 to 91%. Reports no cough or fevers. Patient reports decreased vision in his right eye that is been going on for almost any year. PHYSICAL EXAM: BP 98/71 Pulse 108 Temp (Src) 98.2 (Oral) Resp 21 Ht 6' 0" (1.83m) Wt 138 lb 14.2 oz (63.0kg) SpO2 92% BMI 18.83 kg/(m2). O2 Therapy: Nasal Cannula, Liters: 4 GENERAL: Alert, no distress, cooperative LUNGS: Diminished breath sounds bilaterally CARDIAC: Normal S1 and S2; no rubs, murmurs, or gallops ABDOMEN: Abdomen soft, non-tender, BS normal, No masses or organomegaly EXTREMITIES: Mild lower extremity edema bilaterally left greater than right DATA: Diagnostic tests reviewed for today's visit: CBC, Coags, BMP, Mg, Phos Recent Labs 12/28/23 0412 12/27/23 0841 12/27/23 0211 WBC 13.26* -- 8.60 HB 12.4* -- 13.7 HCT 41.4 -- 45.9 PLT 291 -- 328 NA 139 -- 142 K 4.6 -- 4.4 CHLOR 96* -- 100 CO2 37* -- 37* BUN 22 -- 14 CREAT 0.73 -- 0.74 GLUC 108* -- 94 CA 8.4* -- 8.8 MG -- 1.9 -- P -- 3.4 -- Problem List Acute hypercapnic respiratory failure (HCC) (POA: Yes) COPD with exacerbation (HCC) (POA: Yes) Community acquired pneumonia of right lower lobe of lung (POA: Yes) Acute on chronic respiratory failure with hypoxia and hypercapnia (HCC) (POA: Status not on file) Polysubstance (excluding opioids) dependence (HCC) (POA: Status not on file) Chronic diastolic CHF (congestive heart failure) (HCC) (POA: Status not on file) Former smoker (POA: Status not on file) Pleural effusion (POA: Status not on file) MRSA nasal colonization (POA: Status not on file) Mediastinal lymphadenopathy (POA: Status not on file) Assessment/Plan # Acute on chronic hypoxic/hypercapnic respiratory failure quired BiPAP in the MICU. Secondary COPD exacerbation. Will do 4 L of oxygen. # Acute COPD exacerbation-continue with prednisone for 5 days Continue with bronchodilators. Patient on Advair and Spiriva at home. Patient on azithromycin for anti-inflammatory effects # Polysubstance abuse-patient's drug screen from last admission was positive for amphetamines, cocaine and a head CT. Drug screen ordered on this admission. # Nasal MRSA positive-continue with mupirocin # Tobacco abuse-patient states he quit smoking a month ago. Continue to monitor for clinical improvement. Will need home oxygen evaluation prior to discharge. Plan of care discussed with: Provider, RN, Patient. SIGNATURE: Aguilar Lopez MD PATIENT NAME: Javier Dickson DATE: December 28, 2023 TIME: 1:55 PM PAGER: [facility] 12-28-2023 Telephone encounter Note Patients last visit 07/19/22. Please advise. [facility] [employer] 12-28-2023 Telephone encounter Note Name of caller: Lucy from [facility] Contact phone number: [phone] opt #5 Relationship to Patient: Lucy from [facility] care Provider: Dr. Batista Practice: [facility] Chief Complaint/Reason for Call: Lucy from [facility] care calling to see if Dr. Batista will follow the patient for home care. Please advise. Best time of day caller can be reached: any Patient advised that office/PCP has 24-48 business hours to return their call: No [facility] [employer] 12-28-2023 Note HNO ID: [id number] Author: KARLA GONZALES LSW Service: Care Management Author Type: Rv Technician Type: Care Mgt Progress Note Filed: 12/28/2023 12:46 Note Text: CARE MANAGEMENT PROGRESS NOTE SERVICE DATE: 12/28/2023 SERVICE TIME: 12:28 PM LOS: 1 day Sw met with patient at bedside, patient was sitting up in chair. Patient states he is feeling better. Sw explained [facility] to patient, he is in agreement for referral. Sw placed referral with [facility] liaison. Patient admitted he has a hard time reading and writing. Sw placed referrals for home care. Patient in agreement. Patient's address is [address] [place] [address]. Patient will need desat study to see if he is eligible for home o2. [employer] to email form to be completed for medicaid SIGNATURE: ROLF Kulkarni PATIENT NAME: Javier Dickson DATE: December 28, 2023 TIME: 12:28 PM PAGER/CONTACT #: [phone] [facility] 12-27-2023 Note HNO ID: [id number] Author: KARLA GONZALES LSW Service: Care Management Author Type: Rv Technician Type: Care Mgt Initial Assessment Filed: 12/27/2023 13:09 Note Text: CARE MANAGEMENT: ASSESSMENT AND DISCHARGE PLAN SERVICE DATE: December 27, 2023 SERVICE TIME: 12:19 PM PCP: Carlyle Garcia MD Primary Contact: Extended Emergency Contact Information Primary Emergency Contact: Neptali Dickson Relation: Son Admission Status: Inpatient Insurance Provider: [facility] MEDICA[employer] OF [place] Discharge Planning requested by: Per Department Practice Potential Transition Plans To Be Determined Advance Directives Current Advance Directive: None Learning Administrator Attempted to Assist with AD Completion: Yes Action: Patient Unwilling Current Living Arrangements and Support Lives with: Children Type of Residence: Private Residence (House) Does the patient have to climb stairs at home?: Yes;stairs within the home Support: Family members, Children How do you manage to accomplish the following: Independent: Ambulation;Bathe/Shower;Dress;Me als/Meal Prep;Going to the bathroom;Medication Management Dependent: Transportation to appointments/community Current Services/Equipment Current Post-Acute Service(s): None Discharge Planning Patient Goal(s): Independent living, General wellness, Be able to go home [place] Explained: [place] Given: No Reason Not Given: No placements necessary Are you interested in bedside delivery of your medications? No Discharge Planning Participant(s): Patient Patient/Family Comments: Caregiver Assessment: Caregiver is ready, willing and able to meet the patient's needs as recommended by the inter-professional team: No and ALCOHOL USE/ABUSE CAGE ASSESSMENT Two or More Affirmative Responses Suggest a Client is a Problem Drinker. - Have you felt the need to cut down on your drinking? No - Do you feel annoyed by people complaining about your drinking? No - Do you ever feel guilty about your drinking? No - Do you ever drink an eye-bread panner in the morning to relieve shakes? No Transport at Discharge: Transportation Arrangements: Uber/Lyft/[employer] (paid by [facility]) Needs Prior to Discharge: Needs Prior to Discharge: OT/PT Evaluation (medical clearance) Post-Acute Discharge Plan: Sw met with patient at bedside, patient states he lives with his son and daughter in law. Patient states he is independent with adl's. Patient denies any equip or services. Patient does not drive. Patient denies any issues with obtaining food or meds. Patient living in the basement of the home but has 2 flights to get upstairs to bathroom. Patient may need o2 at discharge. Patient in agreement if needed will accept o2. Patient's address is [address] [place] [address]. Sw tasked for referral to be placed to [facility] for home o2. Patient may need. Sw/beatrice to follow. SIGNATURE: ROLF Kulkarni PATIENT NAME: Javier Dickson DATE: December 27, 2023 TIME: 12:19 PM CONTACT #: [phone] [facility] 12-27-2023 Note HNO ID: [id number] Author: ?, ?, ? Service: ? Author Type: Branch Examiner Type: Plan of Care Filed: 12/27/2023 12:20 Note Text: PHARMACY MEDICATION REVIEW Patient Name: Javier Dickson : 1970 The following medications were updated within the [employer] medication list: Medications ADDED to [employer] medication list Medications CHANGED on [employer] medication list Medications REMOVED from [employer] medication list Additional comments: I was able to talk with the pt. about his home medications. He verified to me the 3 medications recorded below on the [employer] list. I found these medications filled via [employer] [facility]. I have not added, removed or changed any [employer] medications. [facility] uses [facility]. Required follow up actions for nursing: Medication history completed by Historian. No nursing follow up required. The below information represents the best possible medication history: Yes Medication history completed by: Branch Examiner: Ranjith Anand (Mortuary Technician) Source of history: Patient: Reliability of source: Appears reliable, clearly identified: Medication name, Medication dose, Medication route, and Medication frequency and Pharmacy records: [employer] [facility] Medication nonadherence identified: No barriers noted Reconciliation completed: No, pharmacist not yet reviewed Patient interested in Bedside Delivery Services or using [facility] at discharge? Unable to assess Preferred outpatient pharmacy: [id number] [place] [address] - [address] [facility] [phone] [address] FROM [place] [id number] Allergies: No Known Allergies Prior to Admission Medications Prescriptions Last Dose Informant Patient Reported? Taking? albuterol HFA (PROVENTIL HFA, VENTOLIN HFA) 90 mcg/actuation inhaler OTHER No Yes Sig: Inhale 2 Puffs as instructed every 4 hours as needed for wheezing/shortness of breath. fluticasone-salmeterol (ADVAIR DISKUS) 100-50 mcg/dose inhaler OTHER No Yes Sig: Inhale 1 Puff as instructed two times a day. tiotropium bromide (SPIRIVA RESPIMAT) 2.5 mcg/actuation inhaler OTHER No Yes Sig: Inhale 2 Puffs as instructed once daily. Facility-Administered Medications: None Ranjith Anand (Mortuary Technician) phone [phone] 12/27/2023 [facility] 12-27-2023 Note HNO ID: [id number] Author: JOHN POWELL MD Service: Critical Care Author Type: Physician Type: Progress Notes Filed: 01/07/2024 01:08 Note Text: MICU PROGRESS NOTE PATIENT NAME: Javier Dickson REASON FOR ADMISSION:Respiratory failure (Acute on Chronic, with Hypercapnea, with Hypoxemia) LOS: 0 Subjective HPI The patient is a 53-year-old male with a past medical history of COPD, not on baseline O2. He presented to [facility] with a chief complaint of shortness of breath, purulent cough with green sputum production for the past 2 weeks as well as lower extremity edema. In the ED, patient was found to be tachypneic. BMP demonstrated a bicarb of 37. CBC was unremarkable. BNP was found to be 3000. VBG demonstrated a CO2 of greater than 98 with acidosis. Troponin of 64. EKG was unremarkable. Chest x-ray demonstrated pulmonary edema with right small pleural effusion with b/l infiltrates more prominent on the right. DVT ultrasound negative. He was administered DuoNebs x 3 as well as 125 mg of Solu-Medrol and IV Lasix 20 mg. Urine tox was positive for amphetamine, cocaine and cannabis. CODE STATUS was confirmed as full code. Prior admit on 11/13/2023 for a 10 day stay for RSV positivity and CAP as well as COPD exacerbation. At that time he also required BiPAP and AIRVO in the ICU and transitioned to RA. He was d/c with Advair, Spiriva and Albuterol PRN INTERVAL EVENTS This morning, patient is resting on NC, saturating 93%. He does have increased work of breathing with a continued productive cough. He notes that he was given inhalers throughout his past visit however has recently ran out, around the time his symptoms worsened. He does not currently have a PCP. He does note that he quit smoking approximately 1 month ago. Pertinent results include: Viral panel negative for influenza, RSV, COVID Troponin downtrending Urine Legionella and strep pneumo negative Lactate 2.1 VBG improving acidosis 7.303, CO2 downtrending to 77.7 Consultation updates, all recs are appreciated: Objective OBJECTIVE BP 114/74 Pulse 103 Temp 36.7 ?C (98 ?F) (Axillary) Resp 25 Ht 182.9 cm (6') Wt 62 kg (136 lb 11 oz) SpO2 94% BMI 18.54 kg/m? Temp (24hrs), Av.7 ?C (98 ?F), Min:36.7 ?C (98 ?F), Max:36.7 ?C (98 ?F) Body mass index is 18.54 kg/m?., Hemoglobin A1C (%) Date Value 01/10/2021 6.1 Intake/Output Summary (Last 24 hours) at 12/27/2023 0755 Last data filed at 12/27/2023 0635 Gross per 24 hour Intake 250 ml Output 250 ml Net 0 ml LABORATORY: BLOOD GAS: CBC: Recent Labs 12/27/23 021 WBC 8.60 HB 13.7 HCT 45.9 PLT 328 MCV 101.5* RDWCV 13.8 NEUTP 82.5 ABSNEUT 7.09 LYMPHP 7.6 MONOP 8.1 EODINP 1.2 COAG: No results for input(s): "APTT", "INR" in the last 168 hours. CMP: Recent Labs 12/27/23 0211 GLUC 94 NA 142 K 4.4 CHLOR 100 CO2 37* ANION 5* BUN 14 CREAT 0.74 URINALYSIS: Recent Labs 12/27/23 0606 SPGR 1.005 UGLUC Negative UBILI Negative UKET Negative UHB Negative UPROT Negative UWBC 0-5 /HPF Cardiac:No results for input(s): "CKTEST", "CKMB", "CKMBP", "TROPONIN", "BNP" in the last 168 hours. Microbiology: Positive Micro-30 Days No results found for the last 720 hours. IMAGING: CXR- Findings suggestive of pulmonary edema with a small right pleural effusion. CT chest- Severe emphysema. 9.4 cm bulla at the left apex. Small right pleural effusion with subjacent compressive atelectasis. Echo on 11/16/2023 demonstrates EF of 68%, without systolic dysfunction LV Ejection Fraction (%) Date Value 11/14/2023 68 Physical Exam Vitals and nursing note reviewed. Constitutional: Appearance: Normal appearance. Interventions: Nasal cannula in place. HENT: Head: Normocephalic and atraumatic. Mouth/Throat: Mouth: Mucous membranes are dry. Pharynx: Oropharynx is clear. Eyes: Conjunctiva/sclera: Conjunctivae normal. Pupils: Pupils are equal, round, and reactive to light. Cardiovascular: Rate and Rhythm: Normal rate and regular rhythm. Pulses: Normal pulses. Heart sounds: Normal heart sounds. No murmur heard. No friction rub. No gallop. Pulmonary: Effort: Tachypnea and accessory muscle usage present. Breath sounds: Decreased air movement present. No wheezing. Comments: No expiratory wheezes appreciated Abdominal: General: Abdomen is flat. Palpations: Abdomen is soft. Tenderness: There is no abdominal tenderness. Musculoskeletal: General: No swelling. Cervical back: Normal range of motion. Comments: +2 pitting edema to the LLE extending proximal to the knee. Moving all extremities. Skin: General: Skin is warm. Findings: No erythema, lesion or rash. Neurological: General: No focal deficit present. Mental Status: He is alert and oriented to person, place, and time. Psychiatric: Mood and Affect: Mood normal. Behavior: Behavior is cooperative. CURRENT MEDICA (more content not included)... [facility] 12-27-2023 Note HNO ID: [id number] Author: JOHN POWELL MD Service: Critical Care Author Type: Physician Type: Progress Notes Filed: 12/27/2023 12:17 Note Text: [facility] STAFF PHYSICIAN NOTE OF PERSONAL INVOLVEMENT IN CARE I have reviewed the progress note obtained and documented by the Resident. I have personally performed a face to face assessment of the patient and have personally participated on the carlos components of the history, exam and medical decision making. I have discussed the case and management of the patient's care. The following comments revise or confirm relevant carlos components of the note. IMPRESSION: #Acute on chronic hypercapnic and hypoxemic respiratory failure #Acute exacerbation of COPD/bullous emphysema #CAP?? More likely atelectasis #R sided effusion #HFpEF, compensated #DMII #Hx of polysubstance abuse PLAN: - Stopped BIPAP this morning and breathing well - Wean O2 as tolerated - Treatment for COPD- BDs and steroids - Stop abx (continue azithro for COPD exacerbation) and monitor off - If continues to do well today without BIPAP consider transfer to [facility] - Needs outpatient follow up as was lost to follow up after recent discharge Patient/Family Updated This patient has a high probability of sudden, clinically significant deterioration, which requires the highest level of physician preparedness to intervene urgently. I managed/supervised life or organ supporting interventions that required frequent physician assessment. I devoted my full attention to the direct care of this patient for the amount of time indicated below. Time I spent with family or surrogate(s) is included only if the patient was incapable of providing the necessary information or participating in medical decision making. Time devoted to teaching and to any procedures I billed separately is not included. Critical Care Documentation: The patient has the following organ/system impairment(s): Respiratory failure (Acute) Time spent providing critical care services: 30 minutes. SIGNATURE: John Powell MD [facility] DATE of SERVICE: 12/27/2023 [facility] 12-25-2023 Telephone encounter Note Made Several attempts to call Pt to Schedule an RISK DEVELOPER Appt. And NO ANSWER @ [phone] the contact number has not been set-Up so I am unable to Leave a Message. Thank You [facility] [employer] 12-25-2023 Miscellaneous Notes Made Several attempts to call Pt to Schedule an RISK DEVELOPER Appt. And NO ANSWER @ [phone] the contact number has not been set-Up so I am unable to Leave a Message. Thank You Name of Caller: Javier Contact Reason for Appointment: Javier submitted an online request on 12/21/23 regarding a call back to get scheduled for a RISK DEVELOPER appt for Dx: COPD Exacerbation (11/13/23 [facility] ED). Javier states he would like to get scheduled for an apt [place]. Javier states he is available for call back anytime. Please contact Javier and advise. Office Name: [facility] Medication Refills need, if any: N/A Medication Name: N/A documented in this encounter [facility] 12-25-2023 Telephone encounter Note Name of Caller: Javier Contact Reason for Appointment: Javier submitted an online request on 12/21/23 regarding a call back to get scheduled for a RISK DEVELOPER appt for Dx: COPD Exacerbation (11/13/23 [facility] ED). Javier states he would like to get scheduled for an apt [place]. Javier states he is available for call back anytime. Please contact Javier and advise. Office Name: [facility] Medication Refills need, if any: N/A Medication Name: N/A [facility] 11-28-2023 History of Presen t illness Narrative Made 2 attempts to call patient. Left message for patient to return call. If patient returns call, pleased ask the questions and schedule a hospital follow up appointment. Please send letter also requesting patient call us for scheduling. Thanks! Printed letter and placed in the mail documented in this encounter [facility] 11-27-2023 History of Presen t illness Narrative Images from the original note were not included. Outreach made within 2 business days of discharge: yes Patient: Javier Dickson Patient : 1970 Reason for Admission: RSV Bronchiolitis Discharge Date: 11/23/23 Discharge department/facility: [facility] Spoke with: Attempted to call patient. Left message for patient to return call. If patient returns call, pleased ask the questions and schedule a hospital follow up appointment. TCM Interactive Patient Contact: Was patient able to fill all prescriptions: Was patient instructed to bring all medications to the follow-up visit: Is patient taking all medications as directed in the discharge summary? Does patient understand their discharge instructions? Does patient have questions or concerns that need addressed prior to 7-14 day follow up office visit: Beto Villegas Outreach made within 2 business days of discharge: yes Patient: Javier Dickson Patient : 1970 Reason for Admission: RSV Bronchiolitis Discharge Date: 11/23/23 Discharge department/facility: [facility] Spoke with: Attempted to call patient. Left message for patient to return call. If patient returns call, pleased ask the questions and schedule a hospital follow up appointment. TCM Interactive Patient Contact: Was patient able to fill all prescriptions: Was patient instructed to bring all medications to the follow-up visit: Is patient taking all medications as directed in the discharge summary? Does patient understand their discharge instructions? Does patient have questions or concerns that need addressed prior to 7-14 day follow up office visit: Beto Villegas Admission 11/13/2023 [place] [address] Javier Dickson - Male; born [birth year]Encounter Summary, generated on 2023January 2023 Additional Documents Discharge Summary (Last Received: 11/24/2023 1:29 PM) Encounter Summary - COPD exacerbation (HCC) [J44.1] (Last Received: 11/27/2023 1:17 PM) - Currently Viewing Encounter Summary Source Comments - [facility] In the event this information is protected by the Federal Confidentiality of Alcohol and Drug Abuse Patient Records regulations: The Federal rules restrict any use of the information to criminally investigate or prosecute any alcohol or drug abuse patient. Reason for Visit Reason for Visit - Reason Comments Shortness of Breath Pt arrives via AFD from home for worsening shortness of breath starting this evening. 81% on EMS arrival, placed on 6L NC via EMS, rebounded to 92%, given 2 Duonebs with marked improvement. Difficult to obtain pulseox, ear probe 94% on 6L NC. A&O3, GCS 14, difficult historian, rambling speech, denies drugs or ETOH. Hx COPD, no home O2 Auth/Cert (Routine) Reason for Visit - Auth/Cert (Routine) Specialty Diagnoses / Procedures Referred By Contact Referred To Contact Diagnoses COPD exacerbation (HCC) Procedures NA [address] [place] [address] Reason for Visit - Auth/Cert (Routine) Referral ID Status Reason Start Date Expiration Date Visits Requested Visits Authorized [id number] 1 1 Encounter Details Encounter Details Date Type Department Care Team (Latest Contact Info) Description 11/13/2023 4:34 AM EST - 11/23/2023 6:24 PM EST Hospital Encounter [place] [address] [place] [address] John Birmingham MD [address] [place] [address]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 patient how close his sons home is to the address listed in EPIC, he stated it was just around the corner. He states we can use the listed address for the cab ride and he will help navigate the cable television program director. Placed cab on standby, please call [phone] when ready for dc. Asked patient if he would like a food bank ticket, he was agreeable. Please stop at the front office supervisor for his food care package. Discussed case with [facility] AM Rios Duarte and bioethics Neptali Mai. No other CM needs identified at this time. SIGNATURE: Karen Alva RN PATIENT NAME: Javier Dickson DATE: November 23, 2023 TIME: 4:14 PM CONTACT #: [phone] [facility] 11-23-2023 Note HNO ID: [id number] Author: SHREYA TSE RN Service: Nursing Author Type: Registered Nurse Type: Nursing Progress Note Filed: 11/23/2023 14:47 Note Text: SpO2 on RA while at rest was 95%. SpO2 on RA with exertion was 90%. [facility] 11-23-2023 Note HNO ID: [id number] Author: DAVION SUGGS MD Service: Hospital Medicine Author Type: Physician Type: Progress Notes Filed: 11/23/2023 12:22 Note Text: DEPARTMENT OF HOSPITAL MEDICINE PROGRESS NOTE SERVICE DATE: 11/23/2023 SERVICE TIME: 12:18 PM Hospital Medicine/Primary Attending: Davion Suggs MD NIGHT AND WEEKEND COVERAGE: After 7pm please page [phone] CHIEF COMPLAINT: RSV bronchiolitis. Pneumonia. SUBJECTIVE: Reports he still has some cough but much improved. Not much shortness of breath. No fever or chills. OBJECTIVE: PHYSICAL EXAM: BP 118/77 Pulse 84 Temp (Src) 99.7 (Temporal) Resp 19 Ht 6' 0" (1.83m) Wt 134 lb 11.2 oz (61.1kg) SpO2 94% BMI 18.26 kg/(m2). O2 Therapy: Room Air, Liters: 2 GENERAL: Alert, no distress, cooperative, SKIN: Skin color, texture, turgor warm. OROPHARYNX: Lips, mucosa, and tongue moist LUNGS: Lungs clear to auscultation, Air entry diminished, Unlabored breathing. CARDIAC: Normal S1 and S2; no rubs, murmurs, or gallops ABDOMEN: Abdomen soft, non-tender, non-distended, BS normal EXTREMITIES: No edema. NEURO: Awake and alert. Moving all 4 limbs MEDICATIONS: Current Facility-Administered Medications Medication Dose Route Frequency NaCl 0.9% iv flush bag 20 mL INTRAVENOUS PRN enoxaparin 40 mg injection (LOVENOX) 40 mg SUBCUTANEOUS q [address] 40 mg tab(s) (PROTONIX) 40 mg ORAL DAILY (6 AM) acetaminophen 650 mg tab(s) (TYLENOL) 650 mg ORAL q 4 H PRN ondansetron (PF) 4 mg injection (ZOFRAN) 4 mg INTRAVENOUS q 6 H PRN ipratropium-albuterol 3 mL nebulizer solution (DUONEB) 3 mL INHALATION QID budesonide 0.5 mg/2 mL 0.5 mg (PULMICORT) 0.5 mg INHALATION BID senna-docusate 8.6-50 mg 1 tablet (SENNA-S) 1 tablet ORAL BID PRN melatonin 3 mg tab(s) 3 mg ORAL AT BEDTIME PRN albuterol HFA 90 mcg/actuation 2 Puff (PROVENTIL HFA, VENTOLIN HFA) 2 Puff INHALATION q 4 H PRN DATA: Diagnostic tests reviewed for today's visit: CBC, Coags, BMP, Mg, Phos Recent Labs 11/22/23 0230 WBC 8.66 HB 13.3 HCT 41.0 PLT 338 NA 136 K 4.5 CHLOR 97 CO2 33* BUN 14 CREAT 0.62* GLUC 98 CA 8.8 Liver Function, Amylase, AND Lipase Cardiac Enzymes Heme: No results for input(s): "RETICP", "ABSRETIC", "LD", "INA", "FE", "TIBC","TRANSFERSAT" in the last 24 hours. No results found for: "UALBCR" Assessment/Plan Patient Active Hospital Problem List: COPD exacerbation (HCC) (11/13/2023) Drug abuse (HCC) (01/14/2021) RSV (acute bronchiolitis due to respiratory syncytial virus) (11/13/2023) Sepsis with encephalopathy without septic shock (HCC) (11/13/2023) Acute respiratory failure with hypoxia and hypercapnia (HCC) (11/13/2023) Respiratory acidosis (11/13/2023) Pneumonia of right lower lobe due to infectious organism (11/16/2023) Tobacco abuse (11/16/2023) Tobacco abuse counseling (11/16/2023) On deep vein thrombosis (DVT) prophylaxis (11/16/2023) Marijuana abuse (11/17/2023) Severe protein-calorie malnutrition (HCC) (11/22/2023) ASSESSMENT: Mr. Dickson presented with shortness of breath, productive cough and chest pain. 1. RSV bronchiolitis and pneumonia: Chest x-ray right basilar patchy opacity favoring infection. Treated with supportive treatment, DuoNeb, Pulmicort and albuterol as needed, Acapella and I-S as well as 5-day steroid burst. 2. Suspected community-acquired bacterial pneumonia: Chest x-ray right basilar patchy opacity favoring infection. MRSA ovqim-jskqarwo-wnmmgtq with Bactroban. Legionella pneumococcal antigen negative. Completed treatment await ceftriaxone and doxycycline x 7 days.. Needs follow-up chest x-ray in 6 weeks 3. Acute hypoxic respiratory failure: Required BiPAP or Airvo in the ICU. Now on room air. However O2 sat dropped down to 88% on room air with ambulation. Echo this admit-LVEF 68% 4. Presumed COPD with mild acute exacerbation: Treated with steroid burst, DuoNeb and Pulmicort and as needed albuterol. Plan at discharge-Trelegy Ellipta and prn Albuterol. Needs outpatient follow-up with ironing machine operator-he was to follow-up with the ironing machine operator in [facility] 5. Tobacco use: Reports he he has now quit smoking since the admission. Prior, he was smoking about half pack a day. 6. Polysubstance abuse: Tox screen positive for cocaine, cannabinoids and amphetamine. 7. Resolved FOREST: Creatinine admission 1.1. Increase up to 1.4. Down to baseline 0.6. PLAN: Continue current treatment. DC planning-to home to his son's friend's house as he reports once location is known/ home oxygen is delivered. He could not tell me the address where he was residing. However he reports that he was picked up by EMS from his residence. Hence his residence's location can be traced by speaking EMS team who brought him to the hospital. He does not remember his son's phone number. VTE Prophylaxis: Lovenox 40mg Sub Q Daily Disposition: Home Plan of care discussed with: Patient and Care Ma (more content not included)... [facility] 11-23-2023 Telephone encounter Note Noted. [facility] [employer] Work Phone: 11-23-2023 Miscellaneous Notes Noted. Name of caller: Colleen Contact phone number: [phone] Relationship to Patient: [facility] Provider: Dr. Kelsi Batista Practice: [facility] Chief Complaint/Reason for Call: The patient is being seen at [facility] for SOB right now. If you have any questions, please call, Colleen Best time of day caller can be reached: 4:30 pm Patient advised that office/PCP has 24-48 business hours to return their call: Yes documented in this encounter [facility] [employer] 11-22-2023 Note HNO ID: [id number] Author: DAVION SUGGS MD Service: Hospital Medicine Author Type: Physician Type: Progress Notes Filed: 11/23/2023 07:56 Note Text: DEPARTMENT OF HOSPITAL MEDICINE PROGRESS NOTE SERVICE DATE: 11/22/2023 SERVICE TIME: 2:14 PM Hospital Medicine/Primary Attending: Davion Suggs MD NIGHT AND WEEKEND COVERAGE: After 7pm please page [phone] CHIEF COMPLAINT: RSV bronchiolitis/pneumonia. Bacterial pneumonia. SUBJECTIVE: Reports shortness of breath and cough have improved but still coughing. Bringing up thick phlegm. No fever or chills. No chest pain. Appetite well. OBJECTIVE: PHYSICAL EXAM: BP 111/70 Pulse 84 Temp (Src) 98.3 (Oral) Resp 18 Ht 6' 0" (1.83m) Wt 134 lb 11.2 oz (61.1kg) SpO2 92% BMI 18.26 kg/(m2). O2 Therapy: Room Air, Liters: 2 GENERAL: Alert, no distress, cooperative, SKIN: Skin color, texture, turgor warm. OROPHARYNX: Lips, mucosa, and tongue moist LUNGS: Lungs expiratory wheezes bilaterally, Air entry fair, Unlabored breathing. CARDIAC: Normal S1 and S2; no rubs, murmurs, or gallops ABDOMEN: Abdomen soft, non-tender, non-distended, BS normal EXTREMITIES: No edema. NEURO: Awake and alert. Moving all 4 limbs MEDICATIONS: Current Facility-Administered Medications Medication Dose Route Frequency NaCl 0.9% iv flush bag 20 mL INTRAVENOUS PRN enoxaparin 40 mg injection (LOVENOX) 40 mg SUBCUTANEOUS q [address] 40 mg tab(s) (PROTONIX) 40 mg ORAL DAILY (6 AM) acetaminophen 650 mg tab(s) (TYLENOL) 650 mg ORAL q 4 H PRN ondansetron (PF) 4 mg injection (ZOFRAN) 4 mg INTRAVENOUS q 6 H PRN ipratropium-albuterol 3 mL nebulizer solution (DUONEB) 3 mL INHALATION QID budesonide 0.5 mg/2 mL 0.5 mg (PULMICORT) 0.5 mg INHALATION BID senna-docusate 8.6-50 mg 1 tablet (SENNA-S) 1 tablet ORAL BID PRN melatonin 3 mg tab(s) 3 mg ORAL AT BEDTIME PRN albuterol HFA 90 mcg/actuation 2 Puff (PROVENTIL HFA, VENTOLIN HFA) 2 Puff INHALATION q 4 H PRN DATA: Diagnostic tests reviewed for today's visit: CBC, Coags, BMP, Mg, Phos Recent Labs 11/22/23 0230 WBC 8.66 HB 13.3 HCT 41.0 PLT 338 NA 136 K 4.5 CHLOR 97 CO2 33* BUN 14 CREAT 0.62* GLUC 98 CA 8.8 Liver Function, Amylase, AND Lipase Cardiac Enzymes Heme: No results for input(s): "RETICP", "ABSRETIC", "LD", "INA", "FE", "TIBC","TRANSFERSAT" in the last 24 hours. No results found for: "UALBCR" Assessment/Plan Patient Active Hospital Problem List: COPD exacerbation (HCC) (11/13/2023) Drug abuse (HCC) (01/14/2021) RSV (acute bronchiolitis due to respiratory syncytial virus) (11/13/2023) Sepsis with encephalopathy without septic shock (HCC) (11/13/2023) Acute respiratory failure with hypoxia and hypercapnia (HCC) (11/13/2023) Respiratory acidosis (11/13/2023) Pneumonia of right lower lobe due to infectious organism (11/16/2023) Tobacco abuse (11/16/2023) Tobacco abuse counseling (11/16/2023) On deep vein thrombosis (DVT) prophylaxis (11/16/2023) Marijuana abuse (11/17/2023) ASSESSMENT: Mr. Dickson presented with shortness of breath, productive cough and chest pain. 1. RSV bronchiolitis and pneumonia: Chest x-ray right basilar patchy opacity favoring infection. Treated with supportive treatment, DuoNeb, Pulmicort and albuterol as needed, Acapella and I-S as well as 5-day steroid burst. 2. Suspected community-acquired bacterial pneumonia: Chest x-ray right basilar patchy opacity favoring infection. MRSA smvbu-dqfcikye-bxbkrir with Bactroban. Legionella pneumococcal antigen negative. Completed treatment await ceftriaxone and doxycycline x 7 days.. Needs follow-up chest x-ray in 6 weeks 3. Acute hypoxic respiratory failure: Required BiPAP or Airvo in the ICU. Now on room air. However O2 sat dropped down to 88% on room air with ambulation. Echo this admit-LVEF 68% 4. Presumed COPD with mild acute exacerbation: Treated with steroid burst, DuoNeb and Pulmicort and as needed albuterol. Plan at discharge-Trelegy Ellipta and. Albuterol. Needs outpatient follow-up with ironing machine operator-he was to follow-up with the ironing machine operator in [facility] 5. Tobacco use: Reports he he has now quit smoking since the admission. Prior, he was smoking about half pack a day. 6. Polysubstance abuse: Tox screen positive for cocaine, cannabinoids and amphetamine. 7. Resolved FOREST: Creatinine admission 1.1. Increase up to 1.4. Down to baseline 0.6. PLAN: No current treatment. DC planning-trying to figure out his disposition so that the oxygen that he needs as outpatient at home can be delivered to his residence. He reports that he is going to live with his son's friend who his son lives with as well. However he has not been able to contact his son or his friend. Our team has made multiple attempts to reach out to his son but has been unsuccessful. He reports that he contacted his son through his Facebook but patient does not have his phone right now; he lef (more content not included)... [facility] 11-22-2023 Note HNO ID: [id number] Author: COLLEEN GRANT, JUDIT Service: Care Management Author Type: Registered Nurse Type: Care Mgt Progress Note Filed: 11/22/2023 15:45 Note Text: CARE MANAGEMENT PROGRESS NOTE SERVICE DATE: 11/22/2023 SERVICE TIME: 11:01 AM LOS: 9 days Noted desat study 11/22. Patient reports he is not homeless - reports he lives with son, however patient has not been able to provide numbers or address to son/or home/other family members. Bedside RN reports son has not been in at this time. 12:12 PM CM called again to listed number for Neptali (Son) [phone] - no answer, VM with callback number left. 12:13 PM CM attempted to call previous listed number for son Andrea -[phone] - number with no ring, and no option to leave VM. 12:15 PM CM called listed home number [phone] (as patient reports that son has his personal phone) a "Ricardo" answered the phone and reports this is the wrong number. 12:20 PM CM attempted to call PCP "Carlyle Garcia" [phone] in attempts to find alternate contact and left callback number. 12:22 PM Callback from PCP office - talked to "Rose Mary" who reports patient has no address listed at their office, and is no longer a patient - now is listed as "new patient" with [facility] Family: Luis E Dolan - [phone]. 12:46 PM CM attempted to call [phone] - a number provided by Rose Mary that was listed for both patient and son- no ARASELI dubon left with callback number. Per Rose Mary patient has not been active with them since July of 2022. 12:48 PM SW provided a number to try to call Andrea at [phone] - number inactive. 12:50 PM Attempted to call [phone] (a number SW provided for a possible patient contact) no ARASELI dubon with callback left. 12:52 PM CM called [phone] a number given for Benny Cervantes - reported to be new PCP - in attempts to find address, or contact information. [phone] (already attempted at 12:46) PCP office reports patient has no address listed - in their system listed [id number] 1:54 PM Received text from [phone] "This is not Andrea please stop calling". Number removed from patient contact. [employer] able to provide oxygen for patient. Agency reports they attempted to talk to patient 11/21 and reported that patient pretended to sleep and would not talk to them, kept eyes closed and didn't respond to questions. [employer] left a portable tank at bedside (unable to deliver concentrator without address). 2:15 PM Spoke to patient at bedside. Patient again confirms he is not homeless. Reports he still has not heard from son. Again patient attempts to direct CM to Facebook - CM again explained unable to utilize Facebook to contact family/friends. CM asked if this is normal to not hear from son for so long and patient reports "no I don't know what is going on". Patient reports his son does drugs - but that patient does not. CM offered Homeless nursing home in [place] that can accept patients with O2 - patient reports he wouldn't know what to do if sent there and that he has never been in a Homeless Penitentiary in his life. Reports he does not have his phone and that he would be "fucking lost" if sent there. Patient reports he does not know if he needs Oxygen - reports "I have my inhaler". Noted patient on room air at 2:15 PM when talking to CM. Discussed situation with SW at 2:30 PM. 2:55 PM Per google search: number listed for son "Andrea Dickson" [phone]. CM called with no answer and no option to leave VM. Patient will need address, vs placement to Homeless nursing home that can accommodate O2. Home O2 delivery, and cab at time of discharge. Bedside RN can call [employer] at time of discharge. aware. Ethics consulted. CM to follow for transitional needs. SIGNATURE: Colleen Grant RN PATIENT NAME: Javier Dickson DATE: November 22, 2023 TIME: 11:00 AM PAGER/CONTACT #: [phone] [facility] 11-22-2023 Telephone encounter Note Name of caller: Colleen Contact phone number: [phone] Relationship to Patient: [facility] Provider: Dr. Kelsi Batista Practice: [facility] [place] Chief Complaint/Reason for Call: The patient is being seen at [facility] for SOB right now. If you have any questions, please call, Colleen Best time of day caller can be reached: 4:30 pm Patient advised that office/PCP has 24-48 business hours to return their call: Yes [facility] 11-21-2023 Note HNO ID: [id number] Author: ZITA GARVIN MD Service: Hospital Medicine Author Type: Physician Type: Progress Notes Filed: 11/21/2023 15:10 Note Text: DEPARTMENT OF HOSPITAL MEDICINE PROGRESS NOTE SERVICE DATE: 11/21/2023 Hospital Medicine/Primary Attending: Zita Nunez MD NIGHT AND WEEKEND COVERAGE: After 7pm please page [phone] SUBJECTIVE: follow up on acute respiratory failure due to PNA Continues to improve Room air at rest , continue to require O2 with activity up to 4 L NC But feels better today Plan of care discussed with patient SW /prompt care rn continues to follow to find his Son info including phone number and home address in case he requires home O2 on discharge . Denies CP/SOB. Denies nausea/vomiting/diarrhea. OBJECTIVE: PHYSICAL EXAM: BP 109/65 Pulse 79 Temp (Src) 98.2 (Axillary) Resp 18 Ht 6' 0" (1.83m) Wt 134 lb 11.2 oz (61.1kg) SpO2 100% BMI 18.26 kg/(m2). O2 Therapy: Nasal Cannula, Liters: 2 General: NAD, appears comfortable Resp: Clear to auscultation B/L, no wheeze/rhonchi, unlabored CV: RRR, Normal S1S2, No murmur/rub/gallop GI: soft, NT/ND, + BS Ext: no cyanosis/clubbing/edema Neuro: AANDO x 3, speech fluent MEDICATIONS: Current Facility-Administered Medications Medication Dose Route Frequency albuterol HFA 90 mcg/actuation 2 Puff (PROVENTIL HFA, VENTOLIN HFA) 2 Puff INHALATION q 4 H PRN ipratropium-albuterol 3 mL nebulizer solution (DUONEB) 3 mL INHALATION QID budesonide 0.5 mg/2 mL 0.5 mg (PULMICORT) 0.5 mg INHALATION BID senna-docusate 8.6-50 mg 1 tablet (SENNA-S) 1 tablet ORAL BID PRN melatonin 3 mg tab(s) 3 mg ORAL AT BEDTIME PRN ondansetron (PF) 4 mg injection (ZOFRAN) 4 mg INTRAVENOUS q 6 H PRN doxycycline hyclate 100 mg cap(s) (VIBRAMYCIN) 100 mg ORAL q 12 H 6a/6p pantoprazole DR 40 mg tab(s) (PROTONIX) 40 mg ORAL DAILY (6 AM) acetaminophen 650 mg tab(s) (TYLENOL) 650 mg ORAL q 4 H PRN NaCl 0.9% iv flush bag 20 mL INTRAVENOUS PRN enoxaparin 40 mg injection (LOVENOX) 40 mg SUBCUTANEOUS q 24 HR DATA: Diagnostic tests reviewed for today's visit: CBC, Coags, BMP, Mg, Phos Recent Labs 11/19/23 0508 WBC 7.58 HB 13.0 HCT 40.5 PLT 289 NA 136 K 4.4 CHLOR 94* CO2 35* BUN 15 CREAT 0.62* GLUC 92 CA 8.9 CSF AND Dilantin Liver Function, Amylase, AND Lipase Cardiac Enzymes ABGs Problem List COPD exacerbation (HCC) (POA: Yes) Drug abuse (HCC) (POA: Yes) RSV (acute bronchiolitis due to respiratory syncytial virus) (POA: Yes) Sepsis with encephalopathy without septic shock (HCC) (POA: Yes) Acute respiratory failure with hypoxia and hypercapnia (HCC) (POA: Yes) Respiratory acidosis (POA: Yes) Pneumonia of right lower lobe due to infectious organism (POA: Status not on file) Tobacco abuse (POA: Status not on file) Tobacco abuse counseling (POA: Status not on file) On deep vein thrombosis (DVT) prophylaxis (POA: Status not on file) Marijuana abuse (POA: Status not on file) HOSPITAL COURSE: 53 year old male with PMHx tobacco abuse and COPD who presented 11/13/2023 with SOB/AKHTAR, cough, chest pain and found to have acute respiratory failure with hypoxia and hypercapnia due to RSV pneumonia requiring ICU admission for BiPAP and AIRVO. Tox screen on admission was positive for cocaine, cannabinoids, and amphetamines. He was treated with antibiotics and steroids. Transferred to floors on 6L NC. Patient continues to improve on medical floor , he has competed antibiotics and steroid .room air at rest , continues to require O2 with activity . Will repeat Ambulatory pulse Ox tomorrow, cardiology manager follows /patient is unable to provide any info regarding his son phone number or address in case he will need O2 on discharge , will follow tomorrow . -Acute hypoxic respiratory failure due to RSV and bacterial PNA -RSV Pneumonia -CAP -History of COPD Wean off of O2 as tolerated and keep sat>90%, requires 4L NC with activity S/p ceftriaxone and doxycycline Bronchodilators as ordered Pulmonary follows -Tobacco use daily with likely underlying COPD Counseled to quit smoking Pulmonary follows Per pulmonary discharging patient home on Spiriva, Adviar (or equal equivalents) as well as PRN Albuterol. He will need outpatient PFTs for baseline spirometry with a follow-up with our office afterwards to establish care with a ironing machine operator. Advir and albuterol ordered -Polysubstance abuse Urine is positive for cocaine , amphetamine , cannabinoids Counseled to quit -Patient did mention decreased vision in right eye for >[address] head ordered and negative for acute findings Patient advised to follow up with ophthalmology as outpatient ,could be cataract . -Per prompt care rn : another oxygen company ([employer]) can provide oxygen for ~$40 per month. They left a portable tank at bedside (unable to deliver concentrator without address). If he does not qualify for O2 tmrw [employer] can diogo (more content not included)... [facility] 11-21-2023 Note HNO ID: [id number] Author: COLLEEN GRANT RN Service: Care Management Author Type: Registered Nurse Type: Care Mgt Progress Note Filed: 11/21/2023 15:29 Note Text: CARE MANAGEMENT PROGRESS NOTE SERVICE DATE: 11/21/2023 SERVICE TIME: 1:42 PM LOS: 8 days Spoke to patient at bedside. Noted desat from today 11/21. Patient is adamant he is not homeless - reports he lives with son, however has no numbers or address to provide. CM asked if there was anyone else to contact - patient defers CM to use [employer]. CM explained cannot use personal social media to contact friends/family at this time. CM provided patient with pencil and post-it at bedside to write down contact number if patient receives call from son. MD notified. Per MD no plan for discharge today 11/21. 2:25 PM [employer] able to provide oxygen for patient. Agency reports they attempted to talk to patient but that patient pretended to sleep and would not talk to them, kept eyes closed and didn't respond to questions. [employer] left a portable tank at bedside (unable to deliver concentrator without address). If patient does not qualify for O2 tmrw 11/22 - [employer] will take portable tank back - if patient does qualify and patient can provide a home address then [employer] can deliver concentrator at that time. Patient will need address vs placement to Homeless nursing home that can accommodate O2. Home O2 delivery, and cab at time of discharge. Bedside RN can call [employer] when portable O2 able to be delivered. CM to follow for transitional needs. SIGNATURE: Colleen Grant RN PATIENT NAME: Javier Dickson DATE: November 21, 2023 TIME: 2:04 PM PAGER/CONTACT #: [phone] [facility] 11-20-2023 Note HNO ID: [id number] Author: ZITA GARVIN MD Service: Hospital Medicine Author Type: Physician Type: Progress Notes Filed: 11/20/2023 16:46 Note Text: DEPARTMENT OF HOSPITAL MEDICINE PROGRESS NOTE SERVICE DATE: 11/20/2023 Hospital Medicine/Primary Attending: Zita Nunez MD NIGHT AND WEEKEND COVERAGE: After 7pm please page [phone] SUBJECTIVE: follow up on acute respiratory failure due to PNA Continues to improve ROOM AIR AT REST , REQUIRES 4L NC with activity Plan of care discussed with patient Denies CP/SOB. Denies nausea/vomiting/diarrhea. OBJECTIVE: PHYSICAL EXAM: BP 120/74 Pulse 85 Temp (Src) 98.2 (Temporal) Resp 18 Ht 6' 0" (1.83m) Wt 134 lb 11.2 oz (61.1kg) SpO2 97% BMI 18.26 kg/(m2). O2 Therapy: Nasal Cannula, Liters: 4 General: NAD, appears comfortable Resp: Clear to auscultation B/L, no wheeze/rhonchi, unlabored CV: RRR, Normal S1S2, No murmur/rub/gallop GI: soft, NT/ND, + BS Ext: no cyanosis/clubbing/edema Neuro: AANDO x 3, speech fluent MEDICATIONS: Current Facility-Administered Medications Medication Dose Route Frequency albuterol HFA 90 mcg/actuation 2 Puff (PROVENTIL HFA, VENTOLIN HFA) 2 Puff INHALATION q 4 H PRN ipratropium-albuterol 3 mL nebulizer solution (DUONEB) 3 mL INHALATION QID budesonide 0.5 mg/2 mL 0.5 mg (PULMICORT) 0.5 mg INHALATION BID senna-docusate 8.6-50 mg 1 tablet (SENNA-S) 1 tablet ORAL BID PRN melatonin 3 mg tab(s) 3 mg ORAL AT BEDTIME PRN ondansetron (PF) 4 mg injection (ZOFRAN) 4 mg INTRAVENOUS q 6 H PRN doxycycline hyclate 100 mg cap(s) (VIBRAMYCIN) 100 mg ORAL q 12 H 6a/6p cefTRIAXone iv piggyback 2 g in dextrose (iso-osmotic) 50 mL (ROCEPHIN) 2 g INTRAVENOUS q [address] 40 mg tab(s) (PROTONIX) 40 mg ORAL DAILY (6 AM) acetaminophen 650 mg tab(s) (TYLENOL) 650 mg ORAL q 4 H PRN NaCl 0.9% iv flush bag 20 mL INTRAVENOUS PRN enoxaparin 40 mg injection (LOVENOX) 40 mg SUBCUTANEOUS q 24 HR DATA: Diagnostic tests reviewed for today's visit: CBC, Coags, BMP, Mg, Phos Recent Labs 11/19/23 0508 11/18/23 0311 WBC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 Patient reports that he plans to return home with his son at discharge. SW will continue to follow clinical course. SIGNATURE: ROLF Rojas PATIENT NAME: Javier Dickson DATE: November 16, 2023 TIME: 3:12 PM CONTACT #: [phone] [facility] 11-16-2023 Note HNO ID: [id number] Author: ZITA GARVIN MD Service: Hospital Medicine Author Type: Physician Type: Progress Notes Filed: 11/16/2023 14:38 Note Text: DEPARTMENT OF HOSPITAL MEDICINE PROGRESS NOTE SERVICE DATE: 11/16/2023 SERVICE TIME: 2:31 PM Hospital Medicine/Primary Attending: Zita Nunez MD NIGHT AND WEEKEND COVERAGE: After 7pm please page [phone] SUBJECTIVE: follow up on acute respiratory failure due to PNA Patient feels a little better today Denies any new symptoms since he left ICU today On 5L NC 100% Plan of care discussed with patient Denies CP/SOB. Denies nausea/vomiting/diarrhea. OBJECTIVE: PHYSICAL EXAM: BP 134/96 Pulse 98 Temp 98.8 Resp 20 Ht 6' 0" (1.83m) Wt 134 lb 11.2 oz (61.1kg) SpO2 100% BMI 18.26 kg/(m2). O2 Therapy: Nasal Cannula, Liters: 5 General: NAD, appears comfortable Resp: Clear to auscultation B/L, no wheeze/rhonchi, unlabored CV: RRR, Normal S1S2, No murmur/rub/gallop GI: soft, NT/ND, + BS Ext: no cyanosis/clubbing/edema Neuro: AANDO x 3, speech fluent MEDICATIONS: Current Facility-Administered Medications Medication Dose Route Frequency ipratropium-albuterol 3 mL nebulizer solution (DUONEB) 3 mL INHALATION QID budesonide 0.5 mg/2 mL 0.5 mg (PULMICORT) 0.5 mg INHALATION BID senna-docusate 8.6-50 mg 1 tablet (SENNA-S) 1 tablet ORAL BID PRN melatonin 3 mg tab(s) 3 mg ORAL AT BEDTIME PRN ondansetron (PF) 4 mg injection (ZOFRAN) 4 mg INTRAVENOUS q 6 H PRN predniSONE 40 mg tab(s) (DELTASONE) 40 mg ORAL DAILY doxycycline hyclate 100 mg cap(s) (VIBRAMYCIN) 100 mg ORAL q 12 H 6a/6p cefTRIAXone iv piggyback 2 g in dextrose (iso-osmotic) 50 mL (ROCEPHIN) 2 g INTRAVENOUS q [address] 40 mg tab(s) (PROTONIX) 40 mg ORAL DAILY (6 AM) acetaminophen 650 mg tab(s) (TYLENOL) 650 mg ORAL q 4 H PRN NaCl 0.9% iv flush bag 20 mL INTRAVENOUS PRN enoxaparin 40 mg injection (LOVENOX) 40 mg SUBCUTANEOUS q 24 HR albuterol 2.5 mg /3 mL (0.083 %) 2.5 mg (PROVENTIL) 2.5 mg INHALATION q 4 H PRN sodium chloride 0.9 % (flush) 2-10 mL (BD POSIFLUSH) 2-10 mL INTRAVENOUS DIRECTED PRN And perflutren lipid microspheres 1.1 mg/mL 1.3 mL injection (DEFINITY) 1.3 mL INTRAVENOUS DIRECTED PRN DATA: Diagnostic tests reviewed for today's visit: CBC, Coags, BMP, Mg, Phos Recent Labs 11/15/2345411/14/23346 WBC 12.00* 15.63* HB 13.3 14.5 HCT 41.6 45.7 PLT 245 223 NA 136 134* K 4.2 4.7 CHLOR 91* 91* CO2 41* 34* BUN 29* 52* CREAT 0.68* 1.41* GLUC 105* 113* CA 8.7 9.0 CSF AND Dilantin Liver Function, Amylase, AND Lipase Recent Labs 11/15/2345411/14/2334711/14/2334611/13/23195011/13/23 1635 TPROT 5.9* -- 6.6 -- -- ALB 3.6* -- 3.8* -- -- ALT 24 -- 31 -- -- AST 16 -- 23 -- -- ALKPHOS 76 -- 90 -- -- TBILI 0.2 -- 0.4 -- -- LACT -- 2.1 -- 3.0* 2.9* Cardiac Enzymes ABGs Recent Labs 11/14/23 0348 O2AD 60 Problem List COPD exacerbation (HCC) (POA: Yes) Drug abuse (HCC) (POA: Yes) RSV (acute bronchiolitis due to respiratory syncytial virus) (POA: Yes) Sepsis with encephalopathy without septic shock (HCC) (POA: Yes) Acute respiratory failure with hypoxia and hypercapnia (HCC) (POA: Yes) Respiratory acidosis (POA: Yes) Pneumonia of right lower lobe due to infectious organism (POA: Status not on file) Tobacco abuse (POA: Status not on file) Tobacco abuse counseling (POA: Status not on file) On deep vein thrombosis (DVT) prophylaxis (POA: Status not on file) HOSPITAL COURSE: Javier Dickson is a 53 year old male with -Acute hypoxic respiratory failure due to RSV and bacterial PNA -RSV Pneumonia -CAP Wean off of O2 as tolerated and keep sat>90% Continue ceftriaxone and doxycycline day 4/ Bronchodilators as ordered Pulmonary follows -Tobacco use daily with likely underlying COPD Counseled to quit smoking Pulmonary follows Per pulmonary discharging patient home on Spiriva, Adviar (or equal equivalents) as well as PRN Albuterol. He will need outpatient PFTs for baseline spirometry with a follow-up with our office afterwards to establish care with a ironing machine operator. -Polysubstance abuse Urine is positive for cocaine , amphetamine , cannabinoids Counseled to quit VTE Prophylaxis: as appropriate Disposition: Home Plan of care discussed with: Provider, RN, Patient SIGNATURE: Zita Garvin MD PATIENT NAME: Javier Dickson DATE: November 16, 2023 TIME: 2:31 PM PAGER/CONTACT #: steffen team keyshawn [facility] 11-16-2023 Note HNO ID: [id number] Author: DEANNA FLORES APRN.CNP Service: Pulmonary Disease Author Type: Nurse Practitioner Type: Progress Notes Filed: 11/16/2023 11:57 Note Text: PULMONARY PROGRESS NOTE [facility] ([place], [place]) SERVICE DATE: November 16, 2023 SERVICE TIME: 11:30 AM Subjective Patient was transferred out of ICU this morning. He was admitted 11/13/23 to ICU for BiPAP / AIRVO after testing positive for RSV while in the ED. Patient complains of on-going dyspnea with a productive cough (though he is unable to tell me what color of phlegm). He denies any wheezing, chest pain, fevers or chills. Objective OBJECTIVE Current Facility-Administered Medications Medication Dose Route Frequency Provider Last Rate Last Admin ondansetron (PF) 4 mg injection (ZOFRAN) 4 mg INTRAVENOUS q 6 H PRN Kasia Gudino APRN.SECURITY MONITOR 4 mg at 11/15/23 0513 predniSONE 40 mg tab(s) (DELTASONE) 40 mg ORAL DAILY Kasia Gudino APRN.SECURITY MONITOR 40 mg at 11/16/23 0812 doxycycline hyclate 100 mg cap(s) (VIBRAMYCIN) 100 mg ORAL q 12 H 6a/6p Meryl Bains APRN.SECURITY MONITOR 100 mg at 11/16/23 0523 ipratropium-albuterol 3 mL nebulizer solution (DUONEB) 3 mL INHALATION TID Kasia Gudino APRN.SECURITY MONITOR 3 mL at 11/15/23 1155 cefTRIAXone iv piggyback 2 g in dextrose (iso-osmotic) 50 mL (ROCEPHIN) 2 g INTRAVENOUS q 24 H Kasia Gudino APRN.SECURITY MONITOR 100 mL/hr at 11/16/23 0812 2 g at 11/16/[address] 40 mg tab(s) (PROTONIX) 40 mg ORAL DAILY (6 AM) Kasia Gudino APRN.SECURITY MONITOR 40 mg at 11/16/23 0523 acetaminophen 650 mg tab(s) (TYLENOL) 650 mg ORAL q 4 H PRN Kasia Gudino APRN.SECURITY MONITOR 650 mg at 11/14/23 2000 NaCl 0.9% iv flush bag 20 mL INTRAVENOUS PRN Kasia Gudino APRN.SECURITY MONITOR Stopped at 11/14/23 0024 enoxaparin 40 mg injection (LOVENOX) 40 mg SUBCUTANEOUS q 24 HR Kasia Gudino APRN.SECURITY MONITOR 40 mg at 11/14/23 0946 albuterol 2.5 mg /3 mL (0.083 %) 2.5 mg (PROVENTIL) 2.5 mg INHALATION q 4 H PRN Kasia Gudino APRN.SECURITY MONITOR sodium chloride 0.9 % (flush) 2-10 mL (BD POSIFLUSH) 2-10 mL INTRAVENOUS DIRECTED PRN Kasia Gudino APRN.SECURITY MONITOR And perflutren lipid microspheres 1.1 mg/mL 1.3 mL injection (DEFINITY) 1.3 mL INTRAVENOUS DIRECTED PRN Kasia Gudino APRN.SECURITY MONITOR INTAKE AND OUTPUT Intake/Output Summary (Last 24 hours) at 11/16/2023 1130 Last data filed at 11/16/2023 0439 Gross per 24 hour Intake 1020 ml Output 1300 ml Net -280 ml New Radiology Films: CXR 11/16/23: Improving peribronchial infiltrates right lower lung. Changes of emphysema CXR 11/13/23: Right basilar patchy opacity favoring infection. New Micro: New Labs: Tox Screen: VBG 11/13/23 BNP: 14,214 BMP: Glucose (mg/dL) Date Value 11/15/2023 105 06/21/2020 107 Potassium (mmol/L) Date Value 11/15/2023 4.2 06/21/2020 4.0 Sodium (mmol/L) Date Value 11/15/2023 136 06/21/2020 140 Chloride (mmol/L) Date Value 11/15/2023 91 06/21/2020 103 CO2 (mmol/L) Date Value 11/15/2023 41 06/21/2020 28 Creatinine (mg/dL) Date Value 11/15/2023 0.68 06/21/2020 0.90 BUN (mg/dL) Date Value 11/15/2023 29 06/21/2020 15 Anion Gap (mmol/L) Date Value 11/15/2023 4 06/21/2020 9 Calcium (mg/dL) Date Value 06/21/2020 9.1 Calcium, Total (mg/dL) Date Value 11/15/2023 8.7 CBC: Hemoglobin (g/dL) Date Value 11/15/2023 13.3 11/14/2023 14.5 11/13/2023 16.6 HGB (g/dL) Date Value 06/21/2020 13.2 Hematocrit (%) Date Value 11/15/2023 41.6 11/14/2023 45.7 11/13/2023 52.4 06/21/2020 39.4 WBC Date Value 11/15/2023 12.00 k/uL 11/14/2023 15.63 k/uL 11/13/2023 14.56 k/uL 06/21/2020 6.63 thou/cmm Vital Signs 11/16/23 0700 11/16/23 0800 11/16/23 0900 11/16/23 0941 BP: 101/68 93/63 99/56 112/83 Pulse: 93 70 96 89 Resp: 26 17 14 20 Temp: 37.1 ?C (98.8 ?F) SpO2: 93% 100% 99% 98% Weight: Height: PHYSICAL EXAM: Vitals: Reviewed above. Patient is stable on 5L NC (though when I initially entered his room, I found him without any oxygen and his oxygen saturations were in the mid 60s. Patient quickly recovered into the mid 90s when I re-applied 5L NC. GENERAL: AAOx3, pleasant, resting in bed in NAD. Appears anxious regarding overall health / acute illness(es) RESPIRATORY: Fairly CTAB A AND P though with faint RLL wheezing. Respirations are even AND unlabored at rest. No accessory muscle use, pursed lip breathing or conversational dyspnea. As above, patient is on 5L NC. CARDIOVASCULAR: Normal S1S2, RRR. No edema. GI: Abdomen soft, nondistended, nontender, bowel sounds present EXTREMITIES: No clubbing or cyanosis. Moves all extremities equal. +clubbing of fingertips bilaterally Assessment and Plan: ? 1) Acute (on suspected Chronic) mixed Hypoxic AND Hypercapnic Respiratory Failure 2/2 #2 - #4 - Improved off BiPAP / Airvo while in ICU. Patient is currently stable on 5L NC. Continue to wean O2 as able to room air and keep sats > 90%. Continue with DuoNebs QID and Albuterol PRN. Trial addition of Pulmicort. Add an (more content not included)... [facility] 11-15-2023 Note HNO ID: [id number] Author: Kasia Gudino APRN.SECURITY MONITOR Service: Critical Care Author Type: Nurse Practitioner Type: Progress Notes Filed: 11/15/2023 11:34 AM Note Text: ICU TRANSFER NOTE Patient Name: Javier Dickson Account #: Data Unavailable Admission Date: 11/13/2023 Date of Transfer: 11/15/2023 Time of Evaluation: 1115 ICU COURSE: 53 year old male with PMHx tobacco abuse and COPD who presented 11/13/2023 with SOB/AKHTAR, cough, chest pain and found to have acute respiratory failure with hypoxia and hypercapnia due to RSV pneumonia requiring ICU admission for BiPAP and AIRVO. Tox screen on admission was positive for cocaine, cannabinoids, and amphetamines. He was treated with antibiotics and steroids. Now hemodynamically stable on 6L NC. 11/15/23 0950 11/15/23 1000 11/15/23 1010 11/15/23 1100 BP: 94/66 104/68 Pulse: 78 77 77 86 Resp: 17 17 21 18 Temp: SpO2: 96% 99% 100% 99% Weight: Height: Physical Exam Vitals and nursing note reviewed. Constitutional: General: He is not in acute distress. Cardiovascular: Rate and Rhythm: Normal rate and regular rhythm. Pulmonary: Effort: No respiratory distress. Neurological: General: No focal deficit present. Mental Status: He is alert. MEDICATIONS: Current Facility-Administered Medications Medication Dose Route Frequency doxycycline 100 mg in D5W 250 mL Vial-Bag (VIBRAMYCIN) 100 mg INTRAVENOUS q 12 H NaCl 0.9% iv flush bag 20 mL INTRAVENOUS PRN potassium chloride ER 20-40 mEq tab(s) (KLOR-CON) 20-40 mEq ORAL/FEEDING TUBE PRN Or potassium chloride iv piggyback 20 mEq/100 mL 20 mEq INTRAVENOUS PRN magnesium sulfate iv piggyback in sterile water 2 g 50 mL 2 g INTRAVENOUS PRN phosphorus 500 mg tab(s) (K PHOS NEUTRAL) 500 mg ORAL/FEEDING TUBE PRN(NO DISPENSE) calcium gluconate iv piggyback 2 g in NaCl (iso-osmotic) 100 mL 2 g INTRAVENOUS PRN(NO DISPENSE) enoxaparin 40 mg injection (LOVENOX) 40 mg SUBCUTANEOUS q 24 HR albuterol 2.5 mg /3 mL (0.083 %) 2.5 mg (PROVENTIL) 2.5 mg INHALATION q 4 H PRN sodium chloride 0.9 % (flush) 2-10 mL (BD POSIFLUSH) 2-10 mL INTRAVENOUS DIRECTED PRN And perflutren lipid microspheres 1.1 mg/mL 1.3 mL injection (DEFINITY) 1.3 mL INTRAVENOUS DIRECTED PRN ipratropium-albuterol 3 mL nebulizer solution (DUONEB) 3 mL INHALATION TID cefTRIAXone iv piggyback 2 g in dextrose (iso-osmotic) 50 mL (ROCEPHIN) 2 g INTRAVENOUS q [address] 40 mg tab(s) (PROTONIX) 40 mg ORAL DAILY (6 AM) acetaminophen 650 mg tab(s) (TYLENOL) 650 mg ORAL q 4 H PRN ondansetron (PF) 4 mg injection (ZOFRAN) 4 mg INTRAVENOUS q 6 H PRN [START ON 11/16/2023] predniSONE 40 mg tab(s) (DELTASONE) 40 mg ORAL DAILY TUBES AND LINES: PIV SAFETY CHECK LIST: Central Line Infection Prevention Can central venous catheter(s) be removed? If NOT, why? CA-UTI Prevention Can the contreras be removed? If NOT, why? Pressure Ulcer Prevention Are adequate care measures in place? Yes ASSESSMENT AND PLAN: Acute respiratory failure with hypoxia and hypercapnia RSV bronchiolitis and pneumonia Possible superimposed bacterial pneumonia +MRSA swab FOREST Presumed COPD Tobacco abuse Polysubstance abuse (patient denies; +tox cocaine, cannabinoids, amphetamines) Concern for unsafe living condition Continue to wean supplemental oxygen as tolerated Continue ceftriaxone and doxycycline Continue prednisone 40 mg until 11/17 DuoNeb TID Follow up CXR 11/16 Will need outpatient PFTs Social work consult VTE Prophylaxis: enoxaparin 40 mg q24hrs GI Prophylaxis if indicated: pantoprazole 40 mg started due to nausea/GERD Nutrition: regular diet Physical therapy: none UPDATE PATIENT STATUS: Yes Sign out communication: I have discussed the transfer of the patientJavier with DEBORA Helm ([facility]). Transferred to: [facility] with tele New Physician Attending: Dr. Huston ([facility]) Kasia Gudino APRN.CNP November 15, 2023 11:[address] [facility] 11-15-2023 Note HNO ID: [id number] Author: Jill Shin MD Service: Pulmonary Disease Author Type: Physician Type: Progress Notes Filed: 11/15/2023 11:13 AM Note Text: [facility] STAFF PHYSICIAN NOTE OF PERSONAL INVOLVEMENT IN CARE Attending Note I have personally performed a face to face assessment of the patient and have reviewed the PALLIATIVE CARE SPECIALIST/resident note and documentation. I personally participated in the carlos components and performed a substantive portion of the visit and collaborated. I have discussed the case and management of the patient's care. The following comments revise or confirm relevant carlos components of the note. Patient seen and examined. Labs, chest imaging, meds reviewed Last CT Chest - Impression Only No resulted procedures found. Current Facility-Administered Medications Medication Dose Route Frequency Provider Last Rate Last Admin ondansetron (PF) 4 mg injection (ZOFRAN) 4 mg INTRAVENOUS q 6 H PRN Chuyita Newby APRN.SECURITY MONITOR 4 mg at 11/15/23 0513 [START ON 11/16/2023] predniSONE 40 mg tab(s) (DELTASONE) 40 mg ORAL DAILY Kasia Gudino APRN.SECURITY MONITOR ipratropium-albuterol 3 mL nebulizer solution (DUONEB) 3 mL INHALATION TID Jill Shin MD 3 mL at 11/15/23 0919 cefTRIAXone iv piggyback 2 g in dextrose (iso-osmotic) 50 mL (ROCEPHIN) 2 g INTRAVENOUS q 24 H Kasia Gudino APRN.SECURITY MONITOR 100 mL/hr at 11/15/23 0753 2 g at 11/15/[address] 40 mg tab(s) (PROTONIX) 40 mg ORAL DAILY (6 AM) Chuyita Newby BRIDGE BUILDER.SECURITY MONITOR 40 mg at 11/15/23 0448 acetaminophen 650 mg tab(s) (TYLENOL) 650 mg ORAL q 4 H PRN Chuyita Newby APRN.SECURITY MONITOR 650 mg at 11/14/23 2000 doxycycline 100 mg in D5W 250 mL Vial-Bag (VIBRAMYCIN) 100 mg INTRAVENOUS q 12 H Ta Gay, DO 250 mL/hr at 11/15/23 0753 100 mg at 11/15/23 0753 NaCl 0.9% iv flush bag 20 mL INTRAVENOUS PRN Ta, Gay, DO Stopped at 11/14/23 0024 potassium chloride ER 20-40 mEq tab(s) (KLOR-CON) 20-40 mEq ORAL/FEEDING TUBE PRN Ta Gay, DO Or potassium chloride iv piggyback 20 mEq/100 mL 20 mEq INTRAVENOUS PRN Ta, Gay, DO magnesium sulfate iv piggyback in sterile water 2 g 50 mL 2 g INTRAVENOUS PRN Ta, Gay, DO phosphorus 500 mg tab(s) (K PHOS NEUTRAL) 500 mg ORAL/FEEDING TUBE PRN(NO DISPENSE) Ta Gay DO calcium gluconate iv piggyback 2 g in NaCl (iso-osmotic) 100 mL 2 g INTRAVENOUS PRN(NO DISPENSE) Kojo Gay, DO enoxaparin 40 mg injection (LOVENOX) 40 mg SUBCUTANEOUS q 24 HR KojoVictor Hugo DO 40 mg at 11/14/23 0946 albuterol 2.5 mg /3 mL (0.083 %) 2.5 mg (PROVENTIL) 2.5 mg INHALATION q 4 H PRN Kojo Gay DO sodium chloride 0.9 % (flush) 2-10 mL (BD POSIFLUSH) 2-10 mL INTRAVENOUS DIRECTED PRN Jill Shin MD And perflutren lipid microspheres 1.1 mg/mL 1.3 mL injection (DEFINITY) 1.3 mL INTRAVENOUS DIRECTED PRN Jill Shin MD LABS: Recent Labs 11/15/23 0455 WBC 12.00* RBC 4.26 HB 13.3 HCT 41.6 MCV 97.7 PLT 245 NEUTP 82.3 LYMPHP 9.3 MONOP 7.9 BASOP 0.1 ABSNEUT 9.87* ABSMONO 0.95* ABSEOSIN <0.03 ABSBASO <0.03 GLUC 105* BUN 29* CREAT 0.68* NA 136 K 4.2 CHLOR 91* CO2 41* TPROT 5.9* ALB 3.6* CA 8.7 ALKPHOS 76 TBILI 0.2 AST 16 ALT 24 ABG: Invalid input(s): "[id number]" Chest imaging personally reviewed MRSA + NOTED CREAT 1.4 WBC DOWN 15 Pex: vitals as noted. BP 94/66 Pulse 77 Temp 37.3 ?C (99.1 ?F) Resp 21 Ht 182.9 cm (6') Wt 61.1 kg (134 lb 11.2 oz) SpO2 100% BMI 18.27 kg/m? Full exam. Lungs: tachypnea. clear, no large effusion. ENT: no cervical lymphadenopathy, supple. Abd: nondistended, no rebound, nonsurgical. CV: RRR. No edema. Decent perfusion. Skin: not jaundice. No diaphoresis ; CALMER; ALERT; MORE INTERACTIVE Mild scabs or rash right calf Poor nails Poor hygiene but better now Copd barrel Low sq fat Lines, Drains, and Airways Line Duration Peripheral 11/13/23 0750 [facility] Right Forearm 20 Gauge 2 days Peripheral 11/13/23 1130 [facility] Short Left Forearm 20 Gauge 1 day History: as linked above and : Poor historian, BETTER cooperative, EATING BREAKFAST No family here On Air[employer] UNTIL THIS AM , 12L FO ME RSV isolation CONCLUSIONS: - Technically difficult exam due to body habitus. - Exam indication: Initial evaluation of known cardiomyopathy - The left ventricle is normal in size. Left ventricular systolic function is normal. EF = 68 ? 5% (2D 4-ch.) - The right ventricle is mildly dilated. Right ventricular systolic function is normal. RV systolic tissue Doppler velocity is 10.0 cm/s. - There is no pericardial effusion. - The patient has not had a prior CC echocardiographic exam for comparison. My Medical Decision Making: Ass: RSV BRONCHIOLITIS AND PNEUMONIA POSSIBLE RLL BACTERIAL PNEUMONIA PRESUEMED COPD WITH ARF, ex smoker. No inhalers home MALNOURISHED; POA SUSPECTED CHRONIC RESP FAILURE Inc bnpt but doubt acute cardiac; trop neg; cxr no (more content not included)... [facility] 11-14-2023 Note HNO ID: [id number] Author: REBA JONAS RPh Service: Pharmacy Author Type: Pharmacist Type: Plan of Care Filed: 11/22/2023 10:21 Note Text: PHARMACY MEDICATION REVIEW Patient Name: Javier Dickson : 1970 Addendum: medication history reviewed by pharmacist 11/22/2023 Reba Jonas RPh The following medications were updated within the [employer] medication list: Medications ADDED to [employer] medication list Medications CHANGED on [employer] medication list Medications REMOVED from [employer] medication list gabapentin (NEURONTIN) 100 mg capsule Other budesonide-formoterol (SYMBICORT) 80-4.5 mcg/actuation inhaler Other amitriptyline (ELAVIL) 50 mg tablet Other ALBUTEROL INHALATION Other albuterol HFA 90 mcg/actuation HFA Other acetaminophen (TYLENOL) 325 mg tablet Other Not taking these medications per pt. Additional comments: I was able to talk with pt. about home medications. He states he does not take any home medications at this time because of cost. I have removed 6 medications from the [employer] list and I did not find any medications filled for pt. via [employer] e-script. I have not added or changed any [employer] medications . Pt. states financial cost has been one of the main reasons he has not taken RX medications and would welcome any help with this in the future. He has used [facility] in [facility] past but if he can get medications from [facility], he would prefer that. Required follow up actions for nursing: Medication history completed by Historian. No nursing follow up required. The below information represents the best possible medication history: Yes Medication history completed by: Branch Examiner: Ranjith Anand ([employer]) Source of history: Patient: Reliability of source: Appears reliable, clearly identified: Medication name Medication nonadherence identified: Cost Reconciliation completed: Yes Completed by: CARLOTA All [employer] medications addressed by CARLOTA Patient interested in Bedside Delivery Services or using [facility] OP Pharmacy at discharge? Yes. Discharge Pharmacy Updated Preferred outpatient pharmacy: [facility] Allergies: No Known Allergies None Ranjith Anand ([employer]) phone [phone] 11/14/2023 [facility] 11-14-2023 Note HNO ID: [id number] Author: Kasia Gudino APRN.VANESSA Service: Critical Care Author Type: Nurse Practitioner Type: Plan of Care Filed: 11/14/2023 11:35 AM Note Text: Voicemail left for patient's son to return call to unit for clinical update. Kasia Gudino APRN.VANESSA November 14, 2023 11:[address] [facility] 11-14-2023 Note HNO ID: [id number] Author: Jill Shin MD Service: Pulmonary Disease Author Type: Physician Type: Progress Notes Filed: 11/14/2023 10:50 AM Note Text: [facility] STAFF PHYSICIAN NOTE OF PERSONAL INVOLVEMENT IN CARE Attending Note I have personally performed a face to face assessment of the patient and have reviewed the PALLIATIVE CARE SPECIALIST/resident note and documentation. I personally participated in the carlos components and performed a substantive portion of the visit and collaborated. I have discussed the case and management of the patient's care. The following comments revise or confirm relevant carlos components of the note. Patient seen and examined. Labs, chest imaging, meds reviewed Last CT Chest - Impression Only No resulted procedures found. Current Facility-Administered Medications Medication Dose Route Frequency Provider Last Rate Last Admin ipratropium-albuterol 3 mL nebulizer solution (DUONEB) 3 mL INHALATION TID Jill Shin MD 3 mL at 11/14/23 0804 lactated ringers iv infusion 100 mL/hr INTRAVENOUS CONTINUOUS Kasia Gudino APRN.SECURITY MONITOR 100 mL/hr at 11/14/23 0805 100 mL/hr at 11/14/23 08 pantoprazole 40 mg oral liquid (PROTONIX) 40 mg ORAL DAILY (6 AM) Kasia Gudino APRN.SECURITY MONITOR 40 mg at 11/14/23 0946 [START ON 11/15/2023] cefTRIAXone iv piggyback 2 g in dextrose (iso-osmotic) 50 mL (ROCEPHIN) 2 g INTRAVENOUS q 24 H Kasia Gudino APRN.SECURITY MONITOR doxycycline 100 mg in D5W 250 mL Vial-Bag (VIBRAMYCIN) 100 mg INTRAVENOUS q 12 H Victor Hugo Varma DO 250 mL/hr at 11/14/23 0806 100 mg at 11/14/23 08 NaCl 0.9% iv flush bag 20 mL INTRAVENOUS PRN Victor Hugo Varma DO Stopped at 11/14/23 0024 potassium chloride ER 20-40 mEq tab(s) (KLOR-CON) 20-40 mEq ORAL/FEEDING TUBE PRN Victor Hugo Varma DO Or potassium chloride iv piggyback 20 mEq/100 mL 20 mEq INTRAVENOUS PRN Victor Hugo Varma DO magnesium sulfate iv piggyback in sterile water 2 g 50 mL 2 g INTRAVENOUS PRN Victor Hugo Varma DO phosphorus 500 mg tab(s) (K PHOS NEUTRAL) 500 mg ORAL/FEEDING TUBE PRN(NO DISPENSE) Victor Hugo Varma DO calcium gluconate iv piggyback 2 g in NaCl (iso-osmotic) 100 mL 2 g INTRAVENOUS PRN(NO DISPENSE) Victor Hugo Varma, DO enoxaparin 40 mg injection (LOVENOX) 40 mg SUBCUTANEOUS q 24 HR Victor Hugo Varma DO 40 mg at 11/14/23 0946 albuterol 2.5 mg /3 mL (0.083 %) 2.5 mg (PROVENTIL) 2.5 mg INHALATION q 4 H PRN Victor Hugo Varma, DO sodium chloride 0.9 % (flush) 2-10 mL (BD POSIFLUSH) 2-10 mL INTRAVENOUS DIRECTED PRN Jill Shin MD And perflutren lipid microspheres 1.1 mg/mL 1.3 mL injection (DEFINITY) 1.3 mL INTRAVENOUS DIRECTED PRN Jill Shin MD methylPREDNISolone sod succinate(PF) 40 mg injection (SOLU-Medrol) 40 mg INTRAVENOUS q 24 H Victor Hugo Varma 40 mg at 11/14/23 0806 LABS: Recent Labs 11/14/23 0347 WBC 15.63* RBC 4.69 HB 14.5 HCT 45.7 MCV 97.4 PLT 223 NEUTP 89.0 LYMPHP 3.9 MONOP 6.5 BASOP 0.1 ABSNEUT 13.90* ABSMONO 1.02* ABSEOSIN <0.03 ABSBASO <0.03 GLUC 113* BUN 52* CREAT 1.41* NA 134* K 4.7 CHLOR 91* CO2 34* TPROT 6.6 ALB 3.8* CA 9.0 ALKPHOS 90 TBILI 0.4 AST 23 ALT 31 ABG: Invalid input(s): "[id number]" Chest imaging personally reviewed MRSA + NOTED CREAT 1.4 WBC DOWN 15 Pex: vitals as noted. BP 82/57 Pulse 86 Temp 36.4 ?C (97.6 ?F) Resp 21 Ht 182.9 cm (6') Wt 61.1 kg (134 lb 11.2 oz) SpO2 98% BMI 18.27 kg/m? Full exam. Lungs: tachypnea. clear, no large effusion. ENT: no cervical lymphadenopathy, supple. Abd: nondistended, no rebound, nonsurgical. CV: RRR. No edema. Decent perfusion. Skin: not jaundice. No diaphoresis Mild scabs or rash right calf Poor nails Poor skin care Poor hygiene but better now Copd barrel Low sq fat Lines, Drains, and Airways Line Duration Peripheral 11/13/23 0550 Left Arm 20 Gauge 1 day Peripheral 11/13/23 0750 [facility] Right Forearm 20 Gauge 1 day Peripheral 11/13/23 1130 [facility] Short Left Forearm 20 Gauge <1 day History: as linked above and : Poor historian, not fully cooperative, some cussing Wanted food, then nausea No family here On Air[employer] RSV isolation My Medical Decision Making: Ass: RSV BRONCHIOLITIS AND PNEUMONIA POSSIBLE RLL BACTERIAL PNEUMONIA PRESUEMED COPD WITH ARF MALNOURISHED; POA SUSPECTED CHRONIC RESP FAILURE Inc bnpt but doubt acute cardiac; trop neg; cxr no chf Drug abuse / intox, he states only marijuana Plan: Off NIV, vbg better 88 FROM 114 Supportive care RSV;; AIRVO Cautious steroids, dec Noted lasix once for BNPT, WOULD HOLD FURTHER; CXR NOT CHF AND LITTLE PO Aerosols Ceft /doxy; DC VANCO; LOW RISK DESPITE MRSA NASAL Very disheveled, reduced care, ?support ECHO +TOX SCREEN POLYSUBSTANCE ABUSE, HE denies!! 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 [facility] 09-06-2023 Emergency department Note Nurse educated pt on inhaler use. Ramona Salas LPN 09/06/231701 [facility] 09-06-2023 Emergency department Note Nurse educated pt on inhaler use. Ramona Salas LPN 09/06/231701 EMERGENCY DEPARTMENT ENCOUNTER Pt Name: Javier Dickson Birthdate 1970 Date of evaluation: 09/06/2023 ED Provider: YOCASTA Guajardo CNP Patient seen independently within my scope of practice with an Emergency Medicine attending available for supervision. 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 HISTORY OF PRESENT ILLNESS (Location/Symptom, Timing/Onset, Context/Setting, Quality, Duration, Modifying Factors, Severity) Note limiting factors. I wore appropriate PPE for the entirety of this encounter. HPI Javier Dickson is a 53 y.o. who presents to the emergency department for evaluation treatment patient thinks he got bitten by a spider he complains of pain and discomfort to the left side of his nose as well. He thinks it started from the inside. Patient does not remember when he was but he thinks it was a couple of days ago. Patient denies any chest pain shortness of breath abdominal pain nausea vomiting diarrhea constipation fever chills or rashes he has a history of COPD. Patient does smoke cigarettes he denies any alcohol illicit drug use or abuse. Nursing Notes were reviewed. Limitations to history: None Outside historians: None REVIEW OF SYSTEMS Review of Systems GENERAL: Denies weight change, fatigue, weakness, fever HEENT: Denies trauma, headache, dizziness, visual change, ear pain, hearing change, tinnitus, rhinorrhea complaint of cellulitis CARDIAC: Denies hypertension, murmur, angina, palpations, dyspnea on exertion, edema RESPIRATORY: Denies shortness of breath, wheezing, cough, sputum, asthma history of, COPD GI: Denies nausea, vomiting, change in bowels, abdominal pain URINARY: Denies changes in frequency/urgency, hematuria, incontinence, flank pain MUSCULOSKELETAL: Denies weakness, pain, change in ROM, redness, swelling NEURO: Denies loss in sensation, tingling, tremors, weakness, fainting or seizures ENDO: Denies heat/cold intolerance, polyuria, polydipsia, or swelling around neck PSYCH: Denies changes in mood, anxiety, depression, tension, memory Pertinent positives and negatives as per HPI. PAST MEDICAL HISTORY Past Medical History: Diagnosis Date COPD (chronic obstructive pulmonary disease) (HCC) SURGICAL HISTORY History reviewed. No pertinent surgical history. CURRENT MEDICATIONS Previous Medications No medications on file ALLERGIES Patient has no known allergies. FAMILY HISTORY No family history on file. SOCIAL HISTORY Social History Socioeconomic History Marital status: Single Tobacco Use Smoking status: Every Day Smokeless tobacco: Never Substance and Sexual Activity Alcohol use: Not Currently SCREENINGS PHYSICAL EXAM ED Triage Vitals [09/06/23 1519] Temp Heart Rate Resp BP 36.7 C (98 F) 91 17 117/81 SpO2 Temp Source Heart Rate Source Patient Position 95 % Temporal Monitor Sitting BP Location FiO2 (%) Right arm -- Physical Exam GENERAL: The patient appears nourished and normally developed. Vital signs as documented. EYES: Head exam is unremarkable. No scleral icterus or orbital trauma noted. HEENT: Mucous membranes moist. Nares patent without copious rhinorrhea. No enlarged lymphadenopathy. Patient has swelling redness erythema warmth to the nasal just below the periorbital region LUNGS: Lungs are clear to auscultation, without any respiratory distress. CARDIAC: Rhythm is regular. No dysrythmias or murmurs. ABDOMEN: Nontender with no obvious masses, and no peritoneal signs. EXTREMITIES: Non edematous, with no obvious deformities. SKIN: Good color, with no significant rashes. No pallor. NEURO: No obvious neurological deficits, normal sensation and strength bilaterally. patient able to ambulate. DIAGNOSTIC RESULTS RADIOLOGY (Per Emergency Physician): Interpretation per the Radiologist below, if available at the time of this note: CT maxillofacial wo IV contrast Final Result Nasal fracture. Report Dictated on Electronically Signed By: Glenn Rodriguez MD Electronically Signed Date/Time: 09/06/2023 4:20 PM EDT LABS: Labs Reviewed - No data to display All other labs were within normal range or not returned as of this dictation. EMERGENCY DEPARTMENT COURSE and DIFFERENTIAL DIAGNOSIS/MDM: Vitals: Vitals: 09/06/23 1519 BP: 117/81 BP Location: Right arm Patient Position: Sitting Pulse: 91 Resp: 17 Temp: 36.7 C (98 F) TempSrc: Temporal SpO2: 95% Medications albuterol 108 (90 Base) MCG/ACT inhaler 2 puff (has no administration in time range) cephalexin (Keflex) capsule 500 mg (500 mg Oral Given 09/06/23 1638) sulfamethoxazole-trimethoprim (Bactrim DS) 800-160 MG per tablet 1 tablet (1 tablet Oral Given 09/06/23 1638) MDM MDM elements: The patient presented with chief complaint of swelling pain to the nasal and facial area after a questionable spider bite. The differential diagnosis associated with this patient's presentation includes cellulitis versus abscess versus spider bite. Our workup consisted of ordering/reviewing: CT of the maxillofacial was obtained. The patient will be Discharged. Patient is in agreement with this plan. I had a discussion with the patient regarding the importance of smoking cessation. I made them aware of the health risks which include COPD and lung cancer in a voiced understanding. I offered resources to help quit smoking and answered any questions they had. Results of the patient's CT of the facial maxillary shows a nasal fracture although the patient tells me he did not fall or injure himself in any way. Patient will be given a prescription for cephalexin 500 mg p.o. and a dose of Bactrim DS 1 mg p.o. he will also receive a prescription for cephalexin for 10 days he will also receive a prescription for Bactrim for 10 days he is to use warm compresses to the area 4 times a day he is to follow-up with the internal medicine center family medicine in 3 to 5 days I informed the patient that if the redness and swelling becomes worse he should return to the emergency room for IV antibiotics and admission he verbalized understanding of all written and verbal instructions condition stable upon discharge. PROCEDURES: Unless otherwise noted below, none Procedures CRITICAL CARE TIME None FINAL IMPRESSION 1. Insect bite of head, unspecified part, initial encounter 2. Chronic obstructive pulmonary disease, unspecified COPD type (HCC) DISPOSITION Discharge 09/06/2023 04:29:27 PM PATIENT REFERRED TO: Kelsi Batista MD [address] [place] [address] [address] [facility] [id number] DISCHARGE MEDICATIONS: New Prescriptions ALBUTEROL 108 (90 BASE) MCG/ACT INHALER Inhale 2 puffs every 4 hours as needed for wheezing. CEPHALEXIN (KEFLEX) 500 MG CAPSULE Take 1 capsule (500 mg) by mouth in the morning and 1 capsule (500 mg) at noon and 1 capsule (500 mg) in the evening and 1 capsule (500 mg) before bedtime. Do all this for 10 days. SULFAMETHOXAZOLE-TRIMETHOPRIM (BACTRIM DS) 800-160 MG TABLET Take 1 tablet by mouth 2 times daily for 14 days. (Comment: Please note this report has been produced using speech recognition software and may contain errors related to that system including errors in grammar, punctuation, and spelling, as well as words and phrases that may be inappropriate. If there are any questions or concerns please feel free to contact the dictating provider for clarification.) YOCASTA Guajardo CNP (electronically signed) Emergency Medicine Provider YOCASTA Guajardo CNP 09/06/23 1646 documented in this encounter [facility] 09-06-2023 Physician Emergency department Note EMERGENCY DEPARTMENT ENCOUNTER Pt Name: Javier Dickson Birthdate 1970 Date of evaluation: 09/06/2023 ED Provider: YOCASTA Guajardo CNP Patient seen independently within my scope of practice with an Emergency Medicine attending available for supervision. 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 HISTORY OF PRESENT ILLNESS (Location/Symptom, Timing/Onset, Context/Setting, Quality, Duration, Modifying Factors, Severity) Note limiting factors. I wore appropriate PPE for the entirety of this encounter. HPI Javier Dickson is a 53 y.o. who presents to the emergency department for evaluation treatment patient thinks he got bitten by a spider he complains of pain and discomfort to the left side of his nose as well. He thinks it started from the inside. Patient does not remember when he was but he thinks it was a couple of days ago. Patient denies any chest pain shortness of breath abdominal pain nausea vomiting diarrhea constipation fever chills or rashes he has a history of COPD. Patient does smoke cigarettes he denies any alcohol illicit drug use or abuse. Nursing Notes were reviewed. Limitations to history: None Outside historians: None REVIEW OF SYSTEMS Review of Systems GENERAL: Denies weight change, fatigue, weakness, fever HEENT: Denies trauma, headache, dizziness, visual change, ear pain, hearing change, tinnitus, rhinorrhea complaint of cellulitis CARDIAC: Denies hypertension, murmur, angina, palpations, dyspnea on exertion, edema RESPIRATORY: Denies shortness of breath, wheezing, cough, sputum, asthma history of, COPD GI: Denies nausea, vomiting, change in bowels, abdominal pain URINARY: Denies changes in frequency/urgency, hematuria, incontinence, flank pain MUSCULOSKELETAL: Denies weakness, pain, change in ROM, redness, swelling NEURO: Denies loss in sensation, tingling, tremors, weakness, fainting or seizures ENDO: Denies heat/cold intolerance, polyuria, polydipsia, or swelling around neck PSYCH: Denies changes in mood, anxiety, depression, tension, memory Pertinent positives and negatives as per HPI. PAST MEDICAL HISTORY Past Medical History: Diagnosis Date COPD (chronic obstructive pulmonary disease) (HCC) SURGICAL HISTORY History reviewed. No pertinent surgical history. CURRENT MEDICATIONS Previous Medications No medications on file ALLERGIES Patient has no known allergies. FAMILY HISTORY No family history on file. SOCIAL HISTORY Social History Socioeconomic History Marital status: Single Tobacco Use Smoking status: Every Day Smokeless tobacco: Never Substance and Sexual Activity Alcohol use: Not Currently SCREENINGS PHYSICAL EXAM ED Triage Vitals [09/06/23 1519] Temp Heart Rate Resp BP 36.7 C (98 F) 91 17 117/81 SpO2 Temp Source Heart Rate Source Patient Position 95 % Temporal Monitor Sitting BP Location FiO2 (%) Right arm -- Physical Exam GENERAL: The patient appears nourished and normally developed. Vital signs as documented. EYES: Head exam is unremarkable. No scleral icterus or orbital trauma noted. HEENT: Mucous membranes moist. Nares patent without copious rhinorrhea. No enlarged lymphadenopathy. Patient has swelling redness erythema warmth to the nasal just below the periorbital region LUNGS: Lungs are clear to auscultation, without any respiratory distress. CARDIAC: Rhythm is regular. No dysrythmias or murmurs. ABDOMEN: Nontender with no obvious masses, and no peritoneal signs. EXTREMITIES: Non edematous, with no obvious deformities. SKIN: Good color, with no significant rashes. No pallor. NEURO: No obvious neurological deficits, normal sensation and strength bilaterally. patient able to ambulate. DIAGNOSTIC RESULTS RADIOLOGY (Per Emergency Physician): Interpretation per the Radiologist below, if available at the time of this note: CT maxillofacial wo IV contrast Final Result Nasal fracture. Report Dictated on Electronically Signed By: Glenn Rodriguez MD Electronically Signed Date/Time: 09/06/2023 4:20 PM EDT LABS: Labs Reviewed - No data to display All other labs were within normal range or not returned as of this dictation. EMERGENCY DEPARTMENT COURSE and DIFFERENTIAL DIAGNOSIS/MDM: Vitals: Vitals: 09/06/23 1519 BP: 117/81 BP Location: Right arm Patient Position: Sitting Pulse: 91 Resp: 17 Temp: 36.7 C (98 F) TempSrc: Temporal SpO2: 95% Medications albuterol 108 (90 Base) MCG/ACT inhaler 2 puff (has no administration in time range) cephalexin (Keflex) capsule 500 mg (500 mg Oral Given 09/06/23 1638) sulfamethoxazole-trimethoprim (Bactrim DS) 800-160 MG per tablet 1 tablet (1 tablet Oral Given 09/06/23 1638) [facility] MDM elements: The patient presented with chief complaint of swelling pain to the nasal and facial area after a questionable spider bite. The differential diagnosis associated with this patient's presentation includes cellulitis versus abscess versus spider bite. Our workup consisted of ordering/reviewing: CT of the maxillofacial was obtained. The patient will be Discharged. Patient is in agreement with this plan. I had a discussion with the patient regarding the importance of smoking cessation. I made them aware of the health risks which include COPD and lung cancer in a voiced understanding. I offered resources to help quit smoking and answered any questions they had. Results of the patient's CT of the facial maxillary shows a nasal fracture although the patient tells me he did not fall or injure himself in any way. Patient will be given a prescription for cephalexin 500 mg p.o. and a dose of Bactrim DS 1 mg p.o. he will also receive a prescription for cephalexin for 10 days he will also receive a prescription for Bactrim for 10 days he is to use warm compresses to the area 4 times a day he is to follow-up with the internal medicine center family medicine in 3 to 5 days I informed the patient that if the redness and swelling becomes worse he should return to the emergency room for IV antibiotics and admission he verbalized understanding of all written and verbal instructions condition stable upon discharge. PROCEDURES: Unless otherwise noted below, none Procedures CRITICAL CARE TIME None FINAL IMPRESSION 1. Insect bite of head, unspecified part, initial encounter 2. Chronic obstructive pulmonary disease, unspecified COPD type (HCC) DISPOSITION Discharge 09/06/2023 04:29:27 PM PATIENT REFERRED TO: Kelsi Batista MD [address] [place] [address], [address] [facility] [id number] DISCHARGE MEDICATIONS: New Prescriptions ALBUTEROL 108 (90 BASE) MCG/ACT INHALER Inhale 2 puffs every 4 hours as needed for wheezing. CEPHALEXIN (KEFLEX) 500 MG CAPSULE Take 1 capsule (500 mg) by mouth in the morning and 1 capsule (500 mg) at noon and 1 capsule (500 mg) in the evening and 1 capsule (500 mg) before bedtime. Do all this for 10 days. SULFAMETHOXAZOLE-TRIMETHOPRIM (BACTRIM DS) 800-160 MG TABLET Take 1 tablet by mouth 2 times daily for 14 days. (Comment: Please note this report has been produced using speech recognition software and may contain errors related to that system including errors in grammar, punctuation, and spelling, as well as words and phrases that may be inappropriate. If there are any questions or concerns please feel free to contact the dictating provider for clarification.) YOCASTA Guajardo CNP (electronically signed) Emergency Medicine Provider YOCASTA Guajardo CNP 09/06/23 2096 [facility] 04-20-2022 Hospital Discharg John Ayala MD - 04/20/2022 You present emergency room shortness of breath. You are treated with a breathing treatment prior to arrival which seems to have corrected the problem. You are also given steroids here which should continue to help. You are given albuterol inhaler as well as steroids to go with and to use at home as needed. Follow-up with the family medicine clinic you are given their contact information. If your symptoms change or worsen in any way, please come back. The following attachments cannot be sent through Care Everywhere.SOB (Shortness of Breath) ([place]icaraguan)Asthma or COPD: Using a Metered-Dose Inhaler ([place]icaraguan)documented in this encounter [facility] Work Phone: Evaluation note Diagnosis COPD exacerbation (HCC)- Primary Obstructive chronic bronchitis with exacerbation Shortness of breath documented in this encounter [facility] Work Phone: Evaluation note* Diagnosis Screening for condition Screening for unspecified condition documented in this encounter [facility] Work Phone: Evaluation note* Diagnosis Insect bite of head, unspecified part, initial encounter- Primary Chronic obstructive pulmonary disease, unspecified COPD type (HCC) Insect bite of head Face, neck, and scalp except eye, insect bite, nonvenomous, without mention of infection [facility] Diagnosis Localized enlarged lymph nodes- Primary Enlargement of lymph nodes documented in this encounter [facility] noteNo assessment information availableWUniversity [facility] Work Phone: Evaluation note* Diagnosis Chronic respiratory failure with hypoxia (HCC)- Primary Chronic obstructive pulmonary disease, unspecified COPD type (HCC) Bullous emphysema (HCC) Cigarette nicotine dependence without complication [facility] Diagnosis Mastodynia [facility]* Diagnosis Mastodynia [facility] Diagnosis Chronic respiratory failure with hypoxia (HCC) [facility]* Attachments The following attachments cannot be sent through Care Everywhere. * COPD Exacerbation, Adult ED ([place]icaraguan) * COPD Diet ([place]icaraguan) * Insect Bites and Stings Discharge Instructions ([place]icaraguan) * Spider Bites ([place]) [facility] for referral (narrative)No reason for referral information availableWUniversity Hospitals [facility] Work Phone: Summary Purpose Family History No Family History Records FoundNo Family History Records FoundNo Family History Records FoundNo Family History Records FoundNo Family History Records FoundNo Family History Records FoundNo Family History Records FoundNo Family History Records Found Advance Directives No Advanced Directives Records FoundDocuments on File Type Date Recorded Patient Bead Wrapper Expl anation Advance Directive(s) 06/21/2020 12:07 PM Documents on File Type Date Recorded Patient Bead Wrapper Expl anation ACP-Advance Directive 04/20/2022 Latest Code Status on File Code Status Date Activated Date Inactivated Comments Full Code 12/27/2023 5:02 AM Question Answer Comments Full Code Order Discussed With: Patient Latest Code Status on File Code Status Date Activated Date Inactivated Comments Full Code 12/27/2023 5:02 AM Question Answer Comments Full Code Order Discussed With: Patient Latest Code Status on File Code Status Date Activated Date Inactivated Comments Full Code 12/27/2023 5:02 AM Question Answer Comments Full Code Order Discussed With: Patient Latest Code Status on File Code Status Date Activated Date Inactivated Comments Full Code 12/27/2023 5:02 AM 01/05/2024 5:49 PM Question Answer Comments Full Code Order Discussed With: Patient Discharge Instructions * Attachments The following attachments cannot be sent through Care Everywhere. * Head Injury: Closed: General Info (Nicaraguan) * Lacerations: Cinebar (Nicaraguan) * Lacerations: Stitches ([place]icaraguan) documented in this encounter Assessments Diagnosis Injury of head, initial encounter- Primary Laceration of scalp, initial encounter Homelessness Lack of housing Reason for Referral Specialty Diagnoses / Procedures Referred By Chato tapia Referred To Contact Family Medicine Diagnoses COPD exacerbation (HCC) Shortness of breath John Eddy MD [address] [place] [address] [facility] [address] [facility] [address] [place] [id number] Referral ID Status Reason Start Date Expiration Date V isits Requested Visits Authorized [id number] Open Specialty Services Required 04/20/2022 04/20/2023 1 1 Scheduling Instructions [facility] [place] [address] [facility] [address] [place] [phone] Fx: [phone] Specialty Diagnoses / Procedures Referred By Chato t Referred To Contact CT IMAGING Diagnoses Localized enlarged lymph nodes Procedures CT CHEST W IVCON DIAGNOSTIC COMPUTED TOMOGRAPHY THORAX W/CONTRAST Timi Capellan MD [address] [facility] [address] [place] [address] [facility] [place] [address] Referral ID Status Reason Start Date Expiration Date Visits Requested Visits Authorized [id number] Pending Review Auto-Generat ed Referral 02/13/2024 01/30/2025 1 1 Specialty Diagnoses / Procedures Referred By Chato t Referred To Contact Pulmonology Diagnoses Chronic respiratory failure with hypoxia (HCC) Procedures Complete PFT pre and post bronchodilator Emely Amin MD [address] [address] [address] [place] [address] Referral ID Status Reason Start Date Expiration Date V isits Requested Visits Authorized [id number] Authorized 04/29/2024 04/24/2025 1 1 Specialty Diagnoses / Procedures Referred By Chato t Referred To Contact Emely Amin MD [address] [address] Referral ID Status Reason Start Date Expiration Date V isits Requested Visits Authorized [id number] Authorized 04/29/2024 04/28/2025 1 1 Referral ID Status Reason Start Date Expiration Date Visits Re quested Visits Authorized [id number] Closed 04/29/2024 04/24/2025 1 1 Chief Complaint and Reason for Visit Chief Complaint LABWORK Chief Complaint LABWORK ASSISTED LAB WORK Chief Complaint LABWORK ASSISTED LAB WORK ASSISTED LAB WORK Chief Complaint Admit Date LABWORK January 31, 2025 5:0 0am Additional Source Comments (unrecognized sect ion and content) No Status Records FoundNo Status Records FoundNo Status Records FoundNo Status Records FoundNo Status Records FoundNo Status Records FoundNo Status Records FoundNo Status Records Found INFORMATION SOURCE (unrecogn ized section and content) DATE CREATED AUTHOR 09/30/2019 [facility] DATE CREATED AUTHOR AUTHOR'S ORGANIZ ATION 01/15/2021 [facility] DATE CREATED AUTHOR AUTHOR'S ORGANIZ ATION 07/20/2022 [facility] DATE CREATED AUTHOR AUTHOR'S ORGANIZ ATION 08/18/2022 [facility] DATE CREATED AUTHOR AUTHOR'S ORGANIZ ATION 01/02/2024 [facility] DATE CREATED AUTHOR AUTHOR'S ORGANIZ ATION [facility]/20[facility] DATE CREATED AUTHOR AUTHOR'S ORGANIZ ATION 09/29/2024 [facility] DATE CREATED AUTHOR AUTHOR'S ORGANIZ ATION 06/25/2025 [facility] Source Comments (unrecognize d section and content) In the event this informatio n is protected by the Federal Confidentiality of Alcohol and Drug Abuse Patient Records regulations: The Federal rules restrict any use of the information to criminally investigate or prosecute any alcohol or drug abuse patient.[facility] HospitalIn the event this information is protected by the Federal Confidentiality of Alcohol and Drug Abuse Patient Records regulations: The Federal rules restrict any use of the information to criminally investigate or prosecute any alcohol or drug abuse patient.[facility] HospitalIn the event this information is protected by the Federal Confidentiality of Alcohol and Drug Abuse Patient Records regulations: The Federal rules restrict any use of the information to criminally investigate or prosecute any alcohol or drug abuse patient.[facility]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
[2025-07-02 09:02] LABS: Hematocrit 37.0 % (40-54); Hemoglobin 11.9 g/dL (13.0-16.5); Mean Corp Hgb Conc 32.2 g/dL (32-36); Mean Corpuscular Volume 90.5 fL (80-94); Mean Platelet Vol. 9.6 fl (6.2-12.0); Platelet Count 451 K/mm3 (150-450); RBC Distribution Width CV 11.5 % (11.6-14.6); RBC Distribution Width SD 38.3 fl (35.1-43.9); Red Blood Count 4.09 M/mm3 (4.6-6.2); White Blood Count 6.9 K/mm3 (4.4-11.0)
[2025-07-02 09:41] LABS: Anion Gap 11 (5-15); BUN 13 mg/dL (4-19); BUN/Creat Ratio 17.9 RATIO (10-20); Calcium,Total 8.9 mg/dL (7.6-11.0); Carbon Dioxide 27.0 mmol/L (21.0-32.0); Chloride 99 mmol/L (98-108); Glucose 101 mg/dL (70-99); PSA,Total - Annual Screen 0.64 ng/mL (0.02-4.00); Potassium 4.1 mmol/L (3.3-5.1); Pro- Brain NATRIURETIC PEPTIDE 101 pg/mL (<=900); Vitamin B12 389 pg/mL (180-914); Vitamin D,25 Hydroxy 39.3 ng/mL (30-100)
== END ==
LOC: OLS.ACW200 05:00
PROVIDERS: Visit Provider Family Medicine
DX: J44.1 Chronic obstructive pulmonary disease with (acute) exacerbation (principal); J43.9 Emphysema, unspecified; Z74.1 Need for assistance with personal care; R26.81 Unsteadiness on feet; R53.83 Other fatigue
CPT/HCPCS: 36415; 80048; 82306; 82607; 83880; 84153; 84443; 85027; G0103

== ENCOUNTER → 2025-07-24 | Outpatient (REF) | payer MEDICAID, SELFPAY | END | disposition home or self-care (01) | LOC: OLS.ACW200 05:00 | PROVIDERS: Visit Provider Family Medicine | DX: J44.1 Chronic obstructive pulmonary disease with (acute) exacerbation (principal); R53.83 Other fatigue; R53.81 Other malaise | CPT/HCPCS: 36415; 83036 ==

== ENCOUNTER → 2025-10-03 05:00 | Outpatient (REF) | payer MEDICAID, SELFPAY ==
--- OUTSIDE RECORDS SUMMARY | 2025-10-03 04:14 | XMS RPT_ITS | CCD ---
Author Organization [facility] Care Team Providers Care Postbed Stitcher Name Role Phone Unavailable Primary Care Provider [...] Unavailable Kelsi Batista MD Primary Care Provider [phone] Carlyle Garcia MD Primary Care Provider Karolina Chappell MD Unavailable Karolina Chappell MD Unavailable [phone] AGUILRA LOPEZ Attending Unavailable CARLYLE GARCIA Primary Care UnavailNAYE Molina Admitting Unavailable DAVION SUGGS Attending Unavailable JILL SHIN Admitting Unavailable CARLYLE GARCIA Primary Care UnavailPaula Headley MD Primary Care Provider [phone] EMELY AMIN Attending Unavailable PAULA RAPHAEL Referring [...] Drug Class(es) Dates Sig (Normalized) Sig (Original) [id number] 200 actuat albuterol 0.09 mg/actuat metered dose [...] inhaler (3 sources) Corticosteroid, beta2-Adrenergic Agonist Start: 016 take 2 puff(s) by inhalation twice daily budesonide-formoterol (SYMBICORT) 160-4.5 MCG/ACT AERO Inhale 2 puffs into the lungs 2 times daily 10.2 g 2 11/27/2015 Active cholecalciferol 0.05 mg oral tablet (7 sources) Vitamin D Start: 024 take 1 tablet by mouth once daily cholecalciferol (Vitamin D-3) 50 MCG (1999 UT) tablet Take 2,000 Units by mouth [...] Start: 09-18-2019 End: 09-18-2019 lidocaine-EPINEPHr ine 1 percent-1:[id number] injection 20 mL Sodium Chloride (3 sources) [...] respiratory syncytial virus] Onset: 11-13-2023 11-13-2023 Episodic Administrative/social admission (7 sources) Homeless; Translations: [Counseling procedure with explicit context] Onset: 11-16-2023 11-16-2023 Episodic Anxiety disorders (2 sources) Anxiety disorder, [...] mass and lump] Onset: 07-19-2022 Episodic Other nervous system disorders (2 sources) Unsteadiness on feet; Translations: [Unsteadiness on feet] Onset: 07-16-2025 Episodic Other screening for suspected conditions (not [...] Classification Problem Date Documented Da te Episodic/Chronic Diabetes mellitus without complication (14 sources) Prediabetes; [...] Translations: [Shortness of breath] Onset: 04-20-2022 Episodic Residual codes; unclassified (18 sources) Tobacco [...] 01-31-2025 Anion gap [Moles/Vol] 8 mmol/L 03-27 [facility] BUN/creatinine ratioOrdered By: Paula Raphael on 01-31-2025 Urea nitrogen/Creatinine [Mass ratio] 22.1 mg/mg High 09-01 [facility] Bilirubin, totalOrdered By: Paula Raphael on 01-31-2025 Bilirubin [Mass/Vol] 0.22 mg/dL 0.00-1.30 [facility] Carbon dioxide, total [Moles /volume] in Central venous bloodOrdered By: Paula Raphael on 01-31-2025 CO2 [Moles/Vol] 28.0 mmol/L 21.0-32.0 [facility] Chloride assayOrdered By: Abby Raphael on 01-31-2025 Chloride [Moles/Vol] 103 mmol/L 98-108 [facility] Erythrocyte distribution wid th (RBC) [Ratio]Ordered By: Paula Raphael on 01-31-2025 Erythrocyte distribution width (RBC) [Entitic vol] 43.6 fL 35.1-43.9 [facility] Erythrocyte distribution wid th ratioOrdered By: Paula Raphael on 01-31-2025 Erythrocyte distribution width (RBC) [Ratio] 12.7 % 11.6-14.6 [facility] GFR/1.73 sq M.predicted sacha g non-blacks MDRD (S/P/Bld) [Vol rate/Area]Ordered By: Paula Raphael on 01-31-2025 Estimated GFR (MDRD) Non-Af Amer 107 >60 [facility] Comment on above: mL/min/1.73m2 CKD-EP I Creatinine Equation (2020) Hematocrit Auto (Bld) [Volum e fraction]Ordered By: Paula Raphael on 01-31-2025 Hematocrit (Bld) [Volume fraction] 39.8 % Low 40-54 [facility] Hemoglobin measurementOrdere d By: Paula Raphael on 01-31-2025 Hemoglobin (Bld) [Mass/Vol] 13.1 g/dL 13.0-16.5 [facility] Laboratory - Chemistry and C hemistry - challengeOrdered By: Paula Raphael on 01-31-2025 AST [Catalytic activity/Vol] 25 U/L <38 [facility] MCV (mean corpuscular volume ) determinationOrdered By: Paula Raphael on 01-31-2025 MCV (RBC) [Entitic vol] 92.3 fL 80-94 [facility] Mean corpuscular hemoglobin (MCH) determinationOrdered By: Paula Raphael on 01-31-2025 MCH (RBC) [Entitic mass] 30.4 pg 27.0-32.0 [facility] Mean corpuscular hemoglobin concentration (MCHC) determinationOrdered By: Paula Raphael on 01-31-2025 MCHC (RBC) [Mass/Vol] 32.9 g/dL 32-36 [facility] Mean platelet volume determi nationOrdered By: Paula Raphael on 01-31-2025 Platelet mean volume (Bld) [Entitic vol] 9.6 fL 6.2-12.0 [facility] Platelet countOrdered By: Abby Raphael on 01-31-2025 Platelets (Bld) [#/Vol] 232 10*3/uL 150-450 [facility] Potassium (Unsp spec) [Mass/ Vol]Ordered By: Paula Raphael on 01-31-2025 Potassium [Moles/Vol] 3.9 mmol/L 3.3-5.1 [facility] RBC Auto (Bld) [#/Vol]Ordere d By: Paula Raphael on 01-31-2025 RBC (Bld) [#/Vol] 4.31 10*6/uL Low 4.6-6.2 [facility] Serum creatinine measurement (mass/volume)Ordered By: Paula Raphael on 01-31-2025 Creatinine [Mass/Vol] 0.78 mg/dL 0.70-1.20 [facility] Serum globulin measurementOr dered By: Paula Raphael on 01-31-2025 Globulin (S) [Mass/Vol] 2.4 g/dL 2.2-4.2 [facility] Serum glucose measurement (m ass/volume)Ordered By: Paula Raphael on 01-31-2025 Glucose [Mass/Vol] 86 mg/dL 70-99 [facility] Serum or plasma alanine villagomez otransferase (ALT) measurementOrdered By: Paula Raphael on 01-31-2025 ALT [Catalytic activity/Vol] 34 U/L <47 [facility] Serum or plasma albumin wayne urement (mass/volume)Ordered By: Paula Raphael on 01-31-2025 Albumin [Mass/Vol] 4.0 g/dL 3.5-5.0 [facility] Serum or plasma albumin/glob ulin mass ratioOrdered By: Paula Raphael on 01-31-2025 Albumin/Globulin [Mass ratio] 1.6 {ratio} 0.9-2.4 [facility] Serum or plasma alkaline leodan sphatase measurementOrdered By: Paula Raphael on 01-31-2025 ALP [Catalytic activity/Vol] 100 U/L 40-129 [facility] Serum or plasma calcium wayne urement (mass/volume)Ordered By: Paula Raphael on 01-31-2025 Calcium [Mass/Vol] 8.9 mg/dL 7.6-11.0 [facility] Serum or plasma urea nitroge n measurement (mass/volume)Ordered By: Paula Raphael on 01-31-2025 Urea nitrogen [Mass/Vol] 17 mg/dL 4-19 [facility] Sodium levelOrdered By: Víctor Raphael on 01-31-2025 Sodium [Moles/Vol] 139 mmol/L 133-145 [facility] Total proteinOrdered By: Otto Raphael on 01-31-2025 Protein [Mass/Vol] 6.4 g/dL 5.9-8.4 [facility] White blood cell (WBC) count Ordered By: Paula Raphael on 01-31-2025 WBC (Bld) [#/Vol] 5.7 10*3/uL 4.4-11.0 [facility] 36on 09-26-2024 36 Nurse Beto called i n [facility] [place] on behalf of Pt. Explained Pt was just put on Trelegy and she wanted to know If he was to continue taking Advair. Informed Beto that per Pt's last visit note Dr. Amin replaced Pt's Advair with Trelegy and he is to only be taking Trelegy. Beto verbalized understanding. [facility] BI US BREAST LIMITED BILATER Rhonda 06-27-2024 [...] images: BB's = Nipples; skin lesions Open [place] = Palpable Line = Scar TISSUE DENSITY: [...] of this examination. LIFETIME BREAST CANCER RISK: Tyrer-Naomie 8: % - If greater than or [...] Electronically Signed Date/Time: 06/27/2024 1:34 PM EDT [facility] DBT Breast - bilateral diagn osticon [...] images: BB's = Nipples; skin lesions Open [place] = Palpable Line = Scar TISSUE DENSITY: [...] ultrasound demonstrated no mass or other abnormality. [facility] Rocio Fuller MD - 06/27/2024 Patient Name: JAVIER DICKSON : 1970 Exam [...] images: BB's = Nipples; skin lesions Open [place] = Palpable Line = Scar TISSUE DENSITY: [...] Electronically Signed Date/Time: 06/27/2024 1:34 PM EDT [facility] Radiology Study observation (narrative) [facility] No Panel Informationon 06-27 No mammographic [...] Electronically Signed Date/Time: 06/27/2024 1:34 PM EDT [facility] No Panel InformationOrdered By: Rocio Fluler on 06-27-2024 [facility] Work Phone: Breast - bilateral limite don 06-27-2024 Patient [...] images: BB's = Nipples; skin lesions Open [place] = Palpable Line = Scar TISSUE DENSITY: [...] ultrasound demonstrated no mass or other abnormality. [facility] Rocio Fuller MD - 06/27/2024 Patient Name: JAVIER DICKSON : 1970 Exam [...] images: BB's = Nipples; skin lesions Open [place] = Palpable Line = Scar TISSUE DENSITY: [...] Electronically Signed Date/Time: 06/27/2024 1:34 PM EDT [facility] Radiology Study observation (narrative) [facility] Office Visiton 04-29-2024 Follow-up visit [id number] Javier Dickson 1970 M Date Provider Department Center 04/29/2024 [id number] P[facility] None Family History Problem Relation Age of Onset Breast cancer Mother Cataracts Mother COPD Mother Cataracts Father COPD Father Family Status - Relation Status Age at Mother Father Level of Service:39391 [place] OFFICE/OUTPATIENT NEW MODERATE MDM 45 MINUTES Reason for Visit and Comments: New Patient [542] COPD [313] - He says his breathing is okay. He says he has a few "lumps" on his chest that are sore and cause him to have trouble breathing. He says these showed up about 2 months ago. Normal [facility] Basophil percentageOrdered B y: Paula Chapinhner on 02-08-2024 Bilirubin [Mass/Vol] 0.40 mg/dL 0.20-1.00 [facility] Comment on above: For patients on eltr ombopag therapy, use of Dimension [place] TBIL is not recommended. Chloride [Moles/Vol] 107 mmol/L 98-107 [facility] Cholesterol [Mass/Vol] 171 mg/dL <200 [facility] Comment on above: <200 mg/dL Desirable 200-240 mg/dL Borderline >240 mg/dL High Risk Glucose [Mass/Vol] 78 mg/dL 74-106 [facility] Hemoglobin (Bld) [Mass/Vol] 12.9 g/dL 13.0-16.5 [facility] Potassium [Moles/Vol] 3.8 mmol/L 3.5-5.1 [facility] Protein [Mass/Vol] 6.1 g/dL 6.4-8.2 [facility] Sodium [Moles/Vol] 138 mmol/L 136-145 [facility] Triglyceride [Mass/Vol] 70 mg/dL <199 [facility] Comment on above: The drugs N-Acetylcy steine and Metamizole may falsely depress this assay.Serum Triglycerides Reference Interval Normal <150 mg/dL Borderline high 150 - 199 mg/dL High 200 - 499 mg/dL Very High > or = 500 mg/dL WBC (Bld) [#/Vol] 5.8 10*3/uL 4.4-11.0 [facility] Determination of erythrocyte mean corpuscular volume (MCV)Ordered By: Paula Raphael on 02-08-2024 MCV (RBC) [Entitic vol] 89.1 fL 80-94 [facility] Erythrocyte distribution wid th ratioOrdered By: Paula Raphael on 02-08-2024 Erythrocyte distribution width (RBC) [Ratio] 12.7 % 11.6-14.6 [facility] Erythrocyte distribution wid th standard deviationOrdered By: Paula Raphael on 02-08-2024 Erythrocyte distribution width (RBC) [Entitic vol] 41.6 fL 35.1-43.9 [facility] Erythrocyte sedimentation ra teOrdered By: Paula Raphael on 02-08-2024 ESR (Bld) [Velocity] 5 mm/h 0-20 [facility] Hematocrit Auto (Bld) [Volum e fraction]Ordered By: Paula Raphael on 02-08-2024 Hematocrit (Bld) [Volume fraction] 39.4 % 40-54 [facility] Laboratory - Chemistry and C hemistry - challengeOrdered By: Paula Raphael on 02-08-2024 Albumin/Globulin [Mass ratio] 1.1 {ratio} 0.9-2.4 [facility] ALP [Catalytic activity/Vol] 74 U/L 45-117 [facility] ALT [Catalytic activity/Vol] 59 U/L 16-61 [facility] Cholesterol in HDL [Mass/Vol] 60 mg/dL >40 [facility] Comment on above: The drugs N-Acetylcy steine and Metamizole may falsely depress this assay. Reference Range HDL <40 mg/dL Low HDL Cholesterol HDL >or= 60 mg/dL High HDL Cholesterol Cholesterol in LDL [Mass/Vol] 97 mg/dL 0-130 [facility] CO2 [Moles/Vol] 27.0 mmol/L 21.0-32.0 [facility] Globulin (S) [Mass/Vol] 2.9 g/dL 2.2-4.2 [facility] Urea nitrogen/Creatinine [Mass ratio] 12.1 mg/mg 10-20 [facility] Laboratory - Hematology and Cell countsOrdered By: Paula Raphael on 02-08-2024 MCH (RBC) [Entitic mass] 29.2 pg 27.0-32.0 [facility] MCHC (RBC) [Mass/Vol] 32.7 g/dL 32-36 [facility] Platelet mean volume (Bld) [Entitic vol] 9.8 fL 6.2-12.0 [facility] Platelets (Bld) [#/Vol] 227 10*3/uL 150-450 [facility] No Panel InformationOrdered By: Paula Raphael on 02-08-2024 C-Reactive Protein Extended Range < 2.90 mg/L 0.0-3.0 [facility] Comment on above: C-Reactive Protein ( CRP) provides useful information for thediagnosis, therapy and monitoring of inflammatory processesand associated diseases. For the evaluation of Relative Riskfor Cardiovascular Disease, a High Sensitivity CRP (HSCRP)should be ordered. Estimated GFR (MDRD) Amer 142 mL/min >60 [facility] Comment on above: GFR Calc Estimated GFR (MDRD) Non-Af Amer 118 mL/min >60 [facility] Comment on above: Non- GFR Calc VLDL Cholesterol 14 mg/dL 5-40 [facility] RBC Auto (Bld) [#/Vol]Ordere d By: Paula Raphael on 02-08-2024 RBC (Bld) [#/Vol] 4.42 10*6/uL 4.6-6.2 [facility] Serum or plasma calcium wayne urement (mass/volume)Ordered By: Paula Raphael on 02-08-2024 Calcium [Mass/Vol] 8.8 mg/dL 8.5-10.1 [facility] Serum or plasma creatinine m easurement (mass/volume)Ordered By: Paula Raphael on 02-08-2024 Creatinine [Mass/Vol] 0.74 mg/dL 0.70-1.30 [facility] Comment on above: The validity of the calculated GFR & GFRAA in patients over 70 years has not been determined. Clinical correlation is essential. Serum or plasma urea nitroge n measurement (mass/volume)Ordered By: Paula Raphael on 02-08-2024 Urea nitrogen [Mass/Vol] 9 mg/dL 7-18 [facility] Thin prep Papanicolaou smear with manual screeningOrdered By: Paula Raphael on 02-08-2024 Thin prep Papanicolaou smear with manual screening 3.2 g/dL 3.2-5.0 [facility] Thin prep Papanicolaou smear with manual screening 32 U/L 15-37 [facility] Thin prep Papanicolaou smear with manual screening 4 5-15 [facility] Whole blood hemoglobin A1c/t otal hemoglobin ratio (mass fraction)Ordered By: Paula Raphael on 02-08-2024 HbA1c (Bld) [Mass fraction] 5.8 % 3.8-5.6 [facility] Comment on above: Normal < 5.7 % Predi abetic 5.7 - 6.4 % Diabetic >or= 6.5 % Please note range changes. Felice 01-12-2024 ABIEL Telephone ([place]) JAVIER DICKSON ([id number]) 1970 Date Time Provider Department 01/12/24 EMILY FARRIS During your visit today, we recorded the following information about you: Emily Farris, Personnel Security Specialist 01/12/2024 8:38 AM Signed Sent letter to patient regarding Pulmonary Rehab requesting response by 01/26/2024. Emily Farris Personnel Security Specialist 01/29/2024 12:51 PM Signed Attempts to reach patient via phone regarding Cardiopulmonary Rehab referral have been unsuccessful. No response from letter sent in mail. Will consider no response a patient deferral of services at this time. Emily Farris, [place], Cardiopulmonary Rehab [id number] Allergies As of Date: 01/12/2024 (No Known Allergies) Date Reviewed: 01/01/2024 Reviewed by: Deanna Flores APRN.BLOWER ROOM ATTENDANT - Fully Assessed Reason for Visit: Pulm Rehab [8186] Cmt: Letter Sent Prescriptions as of 01/29/2024 [...] Encounter Status:Closed by EMILY FARRIS on 01/12/24 Normal [facility] Basophil percentageOrdered B y: Paula Raphael on 01-09-2024 Bilirubin [Mass/Vol] 0.30 mg/dL 0.20-1.00 [facility] Comment on above: For patients on eltr ombopag therapy, use of Dimension [place] TBIL is not recommended. Chloride [Moles/Vol] 103 mmol/L 98-107 [facility] Cholesterol [Mass/Vol] 186 mg/dL <200 [facility] Comment on above: <200 mg/dL Desirable 200-240 mg/dL Borderline >240 mg/dL High Risk Glucose [Mass/Vol] 89 mg/dL 74-106 [facility] Hemoglobin (Bld) [Mass/Vol] 13.4 g/dL 13.0-16.5 [facility] Potassium [Moles/Vol] 4.5 mmol/L 3.5-5.1 [facility] Protein [Mass/Vol] 6.5 g/dL 6.4-8.2 [facility] Sodium [Moles/Vol] 139 mmol/L 136-145 [facility] Triglyceride [Mass/Vol] 41 mg/dL <199 [facility] Comment on above: The drugs N-Acetylcy steine and Metamizole may falsely depress this assay.Serum Triglycerides Reference Interval Normal <150 mg/dL Borderline high 150 - 199 mg/dL High 200 - 499 mg/dL Very High > or = 500 mg/dL WBC (Bld) [#/Vol] 8.1 10*3/uL 4.4-11.0 [facility] Determination of erythrocyte mean corpuscular volume (MCV)Ordered By: Paula Raphael on 01-09-2024 MCV (RBC) [Entitic vol] 96.3 fL 80-94 [facility] Erythrocyte distribution wid th ratioOrdered By: Paula Raphael on 01-09-2024 Erythrocyte distribution width (RBC) [Ratio] 13.5 % 11.6-14.6 [facility] Erythrocyte distribution wid th standard deviationOrdered By: Paula Raphael on 01-09-2024 Erythrocyte distribution width (RBC) [Entitic vol] 48.1 fL 35.1-43.9 [facility] Hematocrit Auto (Bld) [Volum e fraction]Ordered By: Paula Raphael on 01-09-2024 Hematocrit (Bld) [Volume fraction] 44.3 % 40-54 [facility] Laboratory - Chemistry and C hemistry - challengeOrdered By: Paula Raphael on 01-09-2024 Albumin/Globulin [Mass ratio] 1.0 {ratio} 0.9-2.4 [facility] ALP [Catalytic activity/Vol] 95 U/L 45-117 [facility] ALT [Catalytic activity/Vol] 135 U/L 16-61 [facility] Cholesterol in HDL [Mass/Vol] 76 mg/dL >40 [facility] Comment on above: The drugs N-Acetylcy steine and Metamizole may falsely depress this assay. Reference Range HDL <40 mg/dL Low HDL Cholesterol HDL >or= 60 mg/dL High HDL Cholesterol Cholesterol in LDL [Mass/Vol] 102 mg/dL 0-130 [facility] CO2 [Moles/Vol] 34.0 mmol/L 21.0-32.0 [facility] Globulin (S) [Mass/Vol] 3.3 g/dL 2.2-4.2 [facility] Magnesium [Mass/Vol] 2.0 mg/dL 1.6-2.6 [facility] Urea nitrogen/Creatinine [Mass ratio] 23.5 mg/mg 10-20 [facility] Laboratory - Hematology and Cell countsOrdered By: Paula Raphael on 01-09-2024 MCH (RBC) [Entitic mass] 29.1 pg 27.0-32.0 [facility] MCHC (RBC) [Mass/Vol] 30.2 g/dL 32-36 [facility] Platelet mean volume (Bld) [Entitic vol] 10.1 fL 6.2-12.0 [facility] Platelets (Bld) [#/Vol] 256 10*3/uL 150-450 [facility] No Panel InformationOrdered By: Paula Raphael on 01-09-2024 Estimated GFR (MDRD) Amer 169 mL/min >60 [facility] Comment on above: GFR Calc Estimated GFR (MDRD) Non-Af Amer 140 mL/min >60 [facility] Comment on above: Non- GFR Calc Vitamin D 25-Hydroxy 20.0 ng/mL [facility] Comment on above: Vitamin D 25(OH) Sta tus Range Deficiency <20 ng/mL (50nmol/L) Insufficiency 20 - 30 ng/mL (50 - 75 nmol/L) Sufficiency 30 - 100 ng/mL (75 - 250 nmol/L) Toxicity >100 ng/mL (>250 nmol/L) VLDL Cholesterol 8 mg/dL 5-40 [facility] RBC Auto (Bld) [#/Vol]Ordere d By: Paula Raphael on 01-09-2024 RBC (Bld) [#/Vol] 4.60 10*6/uL 4.6-6.2 [facility] Serum or plasma calcium wayne urement (mass/volume)Ordered By: Paula Raphael on 01-09-2024 Calcium [Mass/Vol] 9.0 mg/dL 8.5-10.1 [facility] Serum or plasma creatinine m easurement (mass/volume)Ordered By: Paula Raphael on 01-09-2024 Creatinine [Mass/Vol] 0.64 mg/dL 0.70-1.30 [facility] Comment on above: The validity of the calculated GFR & GFRAA in patients over 70 years has not been determined. Clinical correlation is essential. Serum or plasma thyroid stim ulating hormone (TSH) measurement (units/volume)Ordered By: Paula Raphael on 01-09-2024 TSH Qn 1.07 uIU/mL 0.358-3.74 [facility] Serum or plasma urea nitroge n measurement (mass/volume)Ordered By: Paula Raphael on 01-09-2024 Urea nitrogen [Mass/Vol] 15 mg/dL 7-18 [facility] Serum or plasma uric acid me asurement (mass/volume)Ordered By: Paula Raphael on 01-09-2024 Urate [Mass/Vol] 4.2 mg/dL 3.5-7.2 [facility] Comment on above: The drugs N-Acetylcy steine and Metamizole may falsely depress this assay. Thin prep Papanicolaou smear with manual screeningOrdered By: Paula Raphael on 01-09-2024 Thin prep Papanicolaou smear with manual screening 3.2 g/dL 3.2-5.0 [facility] Thin prep Papanicolaou smear with manual screening 37 U/L 15-37 [facility] Thin prep Papanicolaou smear with manual screening 2 5-15 [facility] Whole blood hemoglobin A1c/t otal hemoglobin ratio (mass fraction)Ordered By: Paula Raphael on 01-09-2024 HbA1c (Bld) [Mass fraction] 6.0 % 3.8-5.6 [facility] Comment on above: Normal < 5.7 % Predi abetic 5.7 - 6.4 % Diabetic >or= 6.5 % Please note range changes. Basophil percentageOrdered B y: Paula Raphael on 01-08-2024 Bilirubin [Mass/Vol] 0.20 mg/dL 0.20-1.00 [facility] Comment on above: For patients on eltr ombopag therapy, use of Dimension [place] TBIL is not recommended. Chloride [Moles/Vol] 104 mmol/L 98-107 [facility] Cholesterol [Mass/Vol] 188 mg/dL <200 [facility] Comment on above: <200 mg/dL Desirable 200-240 mg/dL Borderline >240 mg/dL High Risk Glucose [Mass/Vol] 89 mg/dL 74-106 [facility] Hemoglobin (Bld) [Mass/Vol] 13.7 g/dL 13.0-16.5 [facility] Potassium [Moles/Vol] 4.3 mmol/L 3.5-5.1 [facility] Protein [Mass/Vol] 6.6 g/dL 6.4-8.2 [facility] Sodium [Moles/Vol] 138 mmol/L 136-145 [facility] Triglyceride [Mass/Vol] 32 mg/dL <199 [facility] Comment on above: The drugs N-Acetylcy steine and Metamizole may falsely depress this assay.Serum Triglycerides Reference Interval Normal <150 mg/dL Borderline high 150 - 199 mg/dL High 200 - 499 mg/dL Very High > or = 500 mg/dL WBC (Bld) [#/Vol] 8.5 10*3/uL 4.4-11.0 [facility] 01-08-2024 [facility] Telephone ([facility]) JAVIER DICKSON ([id number]) 1970 M Date Time Provider Department 01/08/24 MIRLANDE BARTH [facility] During your visit today, we recorded the following information about you: Mirlande Thompson 01/08/2024 9:49 AM Signed Patient was discharged from [facility] 01-05-24 with an order to schedule with the [facility]. However, the patient was then [facility]. A letter was mailed to the patient asking them to contact the Clinic upon discharge from the facility. Allergies As of Date: 01/08/2024 (No Known Allergies) Date Reviewed: 01/01/2024 Reviewed by: Deanna Flores APRN.SPAULDING [facility] Fully Assessed Reason for Visit: Orders [...] Encounter Status:Closed by MIRLANDE THOMPSON on 01/08/24 [facility] Determination of erythrocyte mean corpuscular volume (MCV)Ordered By: Paula Raphael on 01-08-2024 MCV (RBC) [Entitic vol] 97.8 fL 80-94 [facility] Erythrocyte distribution wid th ratioOrdered By: Paula Raphael on 01-08-2024 Erythrocyte distribution width (RBC) [Ratio] 13.5 % 11.6-14.6 [facility] Erythrocyte distribution wid th standard deviationOrdered By: Paula Raphael on 01-08-2024 Erythrocyte distribution width (RBC) [Entitic vol] 48.8 fL 35.1-43.9 [facility] Hematocrit Auto (Bld) [Volum e fraction]Ordered By: Paula Raphael on 01-08-2024 Hematocrit (Bld) [Volume fraction] 45.1 % 40-54 [facility] Laboratory - Chemistry and C hemistry - challengeOrdered By: Paula Raphael on 01-08-2024 Albumin/Globulin [Mass ratio] 0.9 {ratio} 0.9-2.4 [facility] ALP [Catalytic activity/Vol] 113 U/L 45-117 [facility] ALT [Catalytic activity/Vol] 151 U/L 16-61 [facility] Cholesterol in HDL [Mass/Vol] 79 mg/dL >40 [facility] Comment on above: The drugs N-Acetylcy steine and Metamizole may falsely depress this assay. Reference Range HDL <40 mg/dL Low HDL Cholesterol HDL >or= 60 mg/dL High HDL Cholesterol Cholesterol in LDL [Mass/Vol] 103 mg/dL 0-130 [facility] CO2 [Moles/Vol] 31.0 mmol/L 21.0-32.0 [facility] Globulin (S) [Mass/Vol] 3.4 g/dL 2.2-4.2 [facility] Magnesium [Mass/Vol] 2.0 mg/dL 1.6-2.6 [facility] Urea nitrogen/Creatinine [Mass ratio] 21.8 mg/mg 10-20 [facility] Laboratory - Hematology and Cell countsOrdered By: Paula Raphael on 01-08-2024 MCH (RBC) [Entitic mass] 29.7 pg 27.0-32.0 [facility] MCHC (RBC) [Mass/Vol] 30.4 g/dL 32-36 [facility] Platelet mean volume (Bld) [Entitic vol] 10.1 fL 6.2-12.0 [facility] Platelets (Bld) [#/Vol] 253 10*3/uL 150-450 [facility] No Panel InformationOrdered By: Paula Raphael on 01-08-2024 Estimated GFR (MDRD) Amer 183 mL/min >60 [facility] Comment on above: GFR Calc Estimated GFR (MDRD) Non-Af Amer 151 mL/min >60 [facility] Comment on above: Non- GFR Calc Vitamin D 25-Hydroxy 16.6 ng/mL [facility] Comment on above: Vitamin D 25(OH) Sta tus Range Deficiency <20 ng/mL (50nmol/L) Insufficiency 20 - 30 ng/mL (50 - 75 nmol/L) Sufficiency 30 - 100 ng/mL (75 - 250 nmol/L) Toxicity >100 ng/mL (>250 nmol/L) VLDL Cholesterol 6 mg/dL 5-40 [facility] RBC Auto (Bld) [#/Vol]Ordere d By: Paula Raphael on 01-08-2024 RBC (Bld) [#/Vol] 4.61 10*6/uL 4.6-6.2 [facility] Serum or plasma calcium wayne urement (mass/volume)Ordered By: Paula Raphael on 01-08-2024 Calcium [Mass/Vol] 9.0 mg/dL 8.5-10.1 [facility] Serum or plasma creatinine m easurement (mass/volume)Ordered By: Paula Raphael on 01-08-2024 Creatinine [Mass/Vol] 0.60 mg/dL 0.70-1.30 [facility] Comment on above: The validity of the calculated GFR & GFRAA in patients over 70 years has not been determined. Clinical correlation is essential. Serum or plasma thyroid stim ulating hormone (TSH) measurement (units/volume)Ordered By: Paula Raphael on 01-08-2024 TSH Qn 1.21 uIU/mL 0.358-3.74 [facility] Serum or plasma urea nitroge n measurement (mass/volume)Ordered By: Paula Raphael on 01-08-2024 Urea nitrogen [Mass/Vol] 13 mg/dL 7-18 [facility] Serum or plasma uric acid me asurement (mass/volume)Ordered By: Paula Raphael on 01-08-2024 Urate [Mass/Vol] 3.8 mg/dL 3.5-7.2 [facility] Comment on above: The drugs N-Acetylcy steine and Metamizole may falsely depress this assay. Thin prep Papanicolaou smear with manual screeningOrdered By: Paula Raphael on 01-08-2024 Thin prep Papanicolaou smear with manual screening 3.2 g/dL 3.2-5.0 [facility] Thin prep Papanicolaou smear with manual screening 38 U/L 15-37 [facility] Thin prep Papanicolaou smear with manual screening 3 5-15 [facility] Whole blood hemoglobin A1c/t otal hemoglobin ratio (mass fraction)Ordered By: Paula Raphael on 01-08-2024 HbA1c (Bld) [Mass fraction] 5.8 % 3.8-5.6 [facility] Comment on above: Normal < 5.7 % Predi abetic 5.7 - 6.4 % Diabetic >or= 6.5 % Please note range changes. 36on 01-05-2024 36 Called patient, patient's vm is not set up yet Normal [facility] CNDSon 01-05-2024 [facility] HNO ID: [id number] Author: AGUILAR LOPEZ MD Service: Hospital Medicine Author Type: Physician Type: Discharge Summary Filed: 01/05/2024 11:43 Note Text: DISCHARGE SUMMARY PATIENT NAME: Javier Dickson ADMISSION DATE: 12/27/2023 DISCHARGE DATE: 01/05/2024 Attending [...] monitor resolution. [facility] Labs and Procedures Pending at Discharge: No pending results. Consulting Teams During Hospitalization: None Patient Condition @ Discharge: Stable Discharge Disposition: [facility] Facility FOLLOW UP: with PCP in 1 [...] were sent to e- [id number] [place] [address] - [address] - [phone] ACROSS FROM [facility] [address] [address] [facility] [address] Hours: 24-hours ipratropium-albuterol 0.5 mg-3 mg(2.5 mg base)/3 mL Nebu I have performed the pxqz-fc-rjse and relevant services for a total of [...] January 05, 2024 TIME: 11:40 AM Normal [facility] THERAPY NTon 01-05-2024 THERAPY NT HNO ID: [id number] Author: ANJEL QUINONES PT Service: Physical Therapy Author Type: Physical Therapist Type: Therapy (PT/OT/Speech/Resp) Filed: 01/05/2024 11:58 Note Text: Physical Therapy Treatment Summary SERVICE DATE: 01/05/2024 SERVICE TIME: 1132 to 1155 ROOM: [place] [address] PT 6 Clicks Score: 22 DISCHARGE RECOMMENDATIONS [...] breath. Son works during the day but bphufrpu-zl-qnm at home, however patient reports being too stubborn to ask for assistance SUBJECTIVE Pt pleasant and agreeable to PT. THERAPY DIAGNOSIS Reduced mobility-other, Muscle Weakness (generalized), Unsteadiness on feet, General symptoms and signs-other TREATMENT INTERVENTIONS Gait Training (74889), Therapeutic Exercise (09442) Timed Code Treatment (minutes): 23 Skilled Treatment Time (minutes): 23 Therapeutic Exercise (66805) Treatment Minutes: 10 $ Therapeutic Exercise (99347) Billed Units: 1 unit Exercise Ankle Pumps (number of reps): 10 LAQ (number of reps): 10 Exercise: Seated marches x 10 reps each. Cues for increased ROM and slower speed for improved quality of exercises. Gait Training (44995) Treatment Minutes: 13 $ Gait Training (51934) Billed Units: 1 unit Gait training to [...] Stand Trans (more content not included)... Normal [facility] THERAPY NTon 01-04-2024 THERAPY NT HNO ID: [id number] Author: ALBERT PEGUERO, PT Service: Physical Therapy Author Type: Physical Therapist Type: Therapy (PT/OT/Speech/Resp) Filed: 01/04/2024 09:55 Note Text: Physical Therapy Treatment Summary SERVICE DATE: 01/04/2024 SERVICE TIME: 918 to 941 ROOM: [place] [address] PT 6 Clicks Score: 22 DISCHARGE RECOMMENDATIONS [...] breath. Son works during the day but mvzdpadx-au-lyz at home, however patient reports being too stubborn to ask for assistance SUBJECTIVE Pt pleasant and agreeable to PT. THERAPY DIAGNOSIS Muscle Weakness (generalized), Unsteadiness on feet, General symptoms and signs-other TREATMENT INTERVENTIONS Therapeutic Activity (66422), Gait Training (59730) Therapeutic Activity (43173) Treatment Minutes: 10 $ Therapeutic Activity (22095) Billed Units: 1 unit Provided skilled monitoring of vitals signs with mobility and discussed results with pt. Edu in norms for SpO2 and expected drops with activity given his COPD. Discussed concern for adequate oxygenation if drops below 90%, however if this recovers with rest within a couple minutes this is a good thing. Gait Training (89734) Treatment Minutes: 13 $ Gait Training (60246) Billed Units: 1 unit Timed Code Treatment [...] Training Plan for Next Visit: Gait Training, Test Desk Trouble Locator (more content not included)... Normal [facility] 01-02-2024 [facility] HNO ID: [id number] Author: EMILY FARRIS, Personnel Security Specialist Service: Pulmonary Rehab Author Type: Personnel Security Specialist Type: Allied Health Filed: 01/02/2024 10:27 Note Text: PULMONARY REHABILITATION PATIENT EDUCATION PROGRESS NOTE Name: Javier Dickson Date of Service: 01/02/24 Time of Service: 1015 ASSESSMENT: Risk Factors/Significant Medical History Identified: Diagnosis: COPD Sedentary Lifestyle (does not exericse 3 times per week for 20 minutes) Smoking Status: Current 4L NC RECOMMENDATIONS: Patient interested in Phase II Outpatient Pulmonary Rehab: Yes. Facility Preferred: [facility] DIAGNOSIS: COPD TEACHING POINTS: Activity/Physical Exercise Recommendations [...] and/or family verbalizes understanding. Signature: Emily Farris Personnel Security Specialist Pager: [phone] Date: January 02, 2024 Time: 10:24 AM Normal [facility] 36on 01-01-2024 36 Name of caller: Ayleen Contact phone number: [phone] Relationship to Patient: [facility] Provider: Luis E Practice: [facility] Chief Complaint/Reason for Call: Ayleen called to see if the doctor would follow for home care. I released the message to her about the patient will need an appointment. She said she will note that. Please advise Best time of day caller can be reached: any Patient advised that office/PCP has 24-48 business hours to return their call: No Normal [facility] Felice 01-01-2024 CNPN Telephone (HCSIND) JAVIER DICKSON ([id number]) 1970 M Date Time Provider Department 01/01/24 BETO CRENSHAW ANTWAN During your visit today, we recorded the following information about you: Beto Crenshaw 01/01/2024 2:00 PM Signed Jacob there! (Spoke with: Javier ) My name is Beto Crenshaw and I'm calling from [facility]. Your doctor wants to [...] address will we be seeing you at? Counts include [address] beds at the [facility] [address] Do you have any upcoming appointments or [...] Date Reviewed: 01/01/2024 Reviewed by: Deanna Flores APRN.BLOWER ROOM ATTENDANT - Fully Assessed Reason for Visit: Home [...] smoker [Z87 (more content not included)... Normal [facility] ABIEL Telephone (AKPRAD) JAVIER DICKSON ([id number]) 1970 M Date Time Provider Department 01/01/24 DEANNA FLORES During your visit today, we recorded the following information about you: Deanna Flores APRN.BLOWER ROOM ATTENDANT 01/01/2024 10:[address] Capellan, Please sign the orders for Javier Dickson (f/u CT chest in 6 weeks for resolution of ZACHERY) The patient will also need a follow up with our office afterwards. Thank you! Deanna Flores APRN.BLOWER ROOM ATTENDANT January 01, 2024 10:46 AM Allergies As of Date: 01/01/2024 (No Known Allergies) Date Reviewed: 01/01/2024 Reviewed by: Deanna Flores APRN.BLOWER ROOM ATTENDANT - Fully Assessed Reason for Visit: Orders [681] Primary Visit Diagnosis:Localized enlarged lymph nodes [R59.0] Order(s):CT CHEST W IVCON [6546576] Order #: [id number] FUTURE iv contrast (will be provided with [...] Encounter Status:Closed by TIMI CAPELLAN on 01/01/24 [facility] NUTRITIONon 01-01-2024 NUTRITION HNO ID: [id number] Author: DEYANIRA GARCÍA RD Service: Nutrition Therapy [...] Plan: Continue current diet (Regular) Supplements: Boost [facility] (will decrease to daily) Medications: Stool softener [...] NOW Question Answer Comment Supplement 1 BOOST [facility] STRAWBERRY Supplement 1 Frequency BREAKFAST Supplement 1 Frequency DINNER 12/27/23 1315 12/27/23 1030 DIET REGULAR START NOW 12/27/23 1026 GI Symptoms: None MNT Billing: $ Reassessment: 1-15 minutes SIGNATURE: Deynaira García RD PATIENT NAME: Javier Dickson DATE: January 01, 2024 TIME: 9:40 AM Normal [facility] THERAPY NTon 01-01-2024 THERAPY NT HNO ID: [id number] Author: HOMA DELGADILLO, ONUR Service: Respiratory Therapy Author Type: Registered [...] pulmonary rehab at this time . Normal [facility] Basic metabolic 2000 panelon 12-30-2023 Anion gap [Moles/Vol] 6 mmol/L Low 9-18 [facility] Comment on above: Order Comment: Meng blancas Type: BLOOD SPECIMEN Ordering Facility: [facility] Address: [address] [place] [address] Performed By: #### 2 4321-2 #### [facility] CLIA [id number] [address] [place] [address] [place] Calcium [Mass/Vol] 8.6 mg/dL Normal 8.5-10.2 [facility] Comment on above: Order Comment: Meng blancas Type: BLOOD SPECIMEN Ordering Facility: [facility] Address: [address] [place] [address] Performed By: #### 2 4321-2 #### [facility] CLIA [id number] [address] [place] Chloride [Moles/Vol] 96 mmol/L Low 97-105 [facility] Comment on above: Order Comment: Speci men Type: BLOOD SPECIMEN Ordering Facility: [facility] Address: [address] [place] [address] Performed By: #### 2 4321-2 #### [facility] CLIA [id number] [address] OF [place] CO2 [Moles/Vol] 38 mmol/L High 22-30 [facility] Comment on above: Order Comment: Speci men Type: BLOOD SPECIMEN Ordering Facility: [facility] Address: [address] [place] [address] Performed By: #### 2 4321-2 #### [facility] CLIA [id number] [address] OF [facility] Creatinine [Mass/Vol] 0.73 mg/dL Normal 0.73-1.22 [facility] Comment on above: Order Comment: Speci men Type: BLOOD SPECIMEN Ordering Facility: [facility] Address: [address] [place] [address] Performed By: #### 2 4321-2 #### [facility] CLIA [id number] [address] Creatinine and Glomerular filtration rate.predicted panel (S/P/Bld) 109 mL/min/1.73m??? Normal >=60 [facility] Comment on above: Order Comment: Speci men Type: BLOOD SPECIMEN Ordering Facility: [facility] Address: [address] [place] [address] Result Comment: Ingrid mated Glomerular Filtration Rate [...] 2 4321-2 #### [facility] CLIA [id number] [address] [place] [address] [place] Glucose [Mass/Vol] 98 mg/dL Normal 74-99 [facility] Comment on above: Order Comment: Meng blancas Type: BLOOD SPECIMEN Ordering Facility: [facility] Address: [address] [place] [address] Result Comment: The [place] Diabetes Association (ADA) provides guidance for cutoff [...] Standards of Medical Care in Diabetes 2016, [place] Diabetes Association. Diabetes Care. 2016.39(Suppl 1). Performed By: #### 2 4321-2 #### [facility] CLIA [id number] [address] [place] [address] [place] Potassium [Moles/Vol] 4.5 mmol/L Normal 3.7-5.1 [facility] Comment on above: Order Comment: Meng blancas Type: BLOOD SPECIMEN Ordering Facility: [facility] Address: [address] [place] [address] Performed By: #### 2 4321-2 #### [facility] CLIA [id number] [address] [place] [address] [place] Sodium [Moles/Vol] 140 mmol/L Normal 136-144 [facility] Comment on above: Order Comment: Speci men Type: BLOOD SPECIMEN Ordering Facility: [facility] Address: [address] [place] [address] Performed By: #### 2 4321-2 #### [facility] CLIA [id number] [address] [place] [address] [place] Urea nitrogen [Mass/Vol] 21 mg/dL Normal 9-24 [facility] Comment on above: Order Comment: Speci men Type: BLOOD SPECIMEN Ordering Facility: [facility] Address: [facility] [place] [address] Performed By: #### 2 4321-2 #### [facility] CLIA [id number] [address] STATES OF [facility] CBC panel Auto (Bld)on 12-30 Erythrocyte distribution width (RBC) [Ratio] 13.8 % Normal 11.5-15.0 [facility] Comment on above: Order Comment: Speci men Type: BLOOD SPECIMEN Ordering Facility: [facility] Address: [address] [place] [address] Performed By: #### 3 3762-6, 01114-8 #### [facility] CLIA [id number] [address] STATES OF [facility] Hematocrit (Bld) [Volume fraction] 42.8 % Normal 39.0-51.0 [facility] Comment on above: Order Comment: Speci men Type: BLOOD SPECIMEN Ordering Facility: [facility] Address: [address] [place] [address] Performed By: #### 3 3762-6, 77643-3 #### [facility] CLIA [id number] [address] STATES OF [facility] Hemoglobin (Bld) [Mass/Vol] 12.7 g/dL Low 13.0-17.0 [facility] Comment on above: Order Comment: Speci men Type: BLOOD SPECIMEN Ordering Facility: [facility] Address: [address] [place] [address] Performed By: #### 3 3762-6, 65492-1 #### [facility] CLIA [id number] [address] STATES OF [facility] MCH (RBC) [Entitic mass] 30.2 pg Normal 26.0-34.0 [facility] Comment on above: Order Comment: Speci men Type: BLOOD SPECIMEN Ordering Facility: [facility] Address: [address] [place] [address] Performed By: #### 3 3762-6, 78795-0 #### [facility] CLIA [id number] [address] [place] MCHC (RBC) [Mass/Vol] 29.7 g/dL Low 30.5-36.0 [facility] Comment on above: Order Comment: Speci men Type: BLOOD SPECIMEN Ordering Facility: [facility] Address: [address] [place] [address] Performed By: #### 3 3762-6, 14919-5 #### [facility] CLIA [id number] [address] MCV (RBC) [Entitic vol] 101.9 fL High 80.0-100.0 [facility] Comment on above: Order Comment: Speci men Type: BLOOD SPECIMEN Ordering Facility: [facility] Address: [address] [place] [address] Performed By: #### 3 3766, 45902-4 #### [facility] CLIA [id number] [address] Nucleated RBC (Bld) [#/Vol] 10*3/uL Normal <0.01 [facility] Comment on above: Order Comment: Speci men Type: BLOOD SPECIMEN Ordering Facility: [facility] Address: [facility] [place] [address] Performed By: #### 3 3762-6, 29777-5 #### [facility] CLIA [id number] [address] Platelet mean volume (Bld) [Entitic vol] 9.7 fL Normal 9.0-12.7 [facility] Comment on above: Order Comment: Speci men Type: BLOOD SPECIMEN Ordering Facility: [facility] Address: [facility] [place] [address] Performed By: #### 3 3762-6, 99224-3 #### [facility] CLIA [id number] [address] [place] Platelets (Bld) [#/Vol] 306 10*3/uL Normal 150-400 [facility] Comment on above: Order Comment: Speci men Type: BLOOD SPECIMEN Ordering Facility: [facility] Address: [address] [place] [address] Performed By: #### 3 3762-6, 78559-1 #### [facility] CLIA [id number] [address] OF [facility] RBC (Bld) [#/Vol] 4.20 10*6/uL Normal 4.20-6.00 [facility] Comment on above: Order Comment: Speci men Type: BLOOD SPECIMEN Ordering Facility: [facility] Address: [address] [place] [address] Performed By: #### 3 3762-6, 15029-4 #### [facility] CLIA [id number] [address] WBC (Bld) [#/Vol] 12.01 10*3/uL High 3.70-11.00 [facility] Comment on above: Order Comment: Speci men Type: BLOOD SPECIMEN Ordering Facility: [facility] Address: [address] [place] [address] Performed By: #### 3 3762-6, 65079-8 #### [facility] CLIA [id number] [address] CONSULT PROGon 12-29-2023 CONSULT PROG HNO ID: [id number] Author: KASIA ABARCA PA-C Service: Pulmonary Disease Author Type: Physician End Frazer Type: Consult Progress Note Filed: 12/29/2023 10:42 Note Text: [facility] PULMONARY MEDICINE CONSULT PROGRESS NOTE [...] ORAL q 6 H PRN Raven Lara APRN.BLOWER ROOM ATTENDANT 30 mL at 12/29/23 0209 ipratropium-albuterol 3 [...] 0.3 12/27/2023 Abs Neut 7.09 12/27/2023 Abs [place] 0.70 12/27/2023 Abs Eosin 0.10 12/27/2023 Abs [...] superficial thrombophleb (more content not included)... Normal [facility] THERAPY NTon 12-29-2023 THERAPY NT HNO ID: [id number] Author: MAUREEN, MILADY, OTR/L Service: Occupational Therapy Author Type: Occupational Therapist Type: Therapy (PT/OT/Speech/Resp) Filed: 12/29/2023 09:19 Note Text: Occupational Therapy Evaluation Summary SERVICE DATE: 12/29/2023 SERVICE TIME: 836 to 856 ROOM: [id number] OT 6 Clicks Score: 20 DISCHARGE RECOMMENDATIONS [...] breath. Son works during the day but zlmvlxvj-pj-rsd at home, however patient reports being too [...] Time (minutes): 20 $ Evaluation - Moderate (08127) Billed Units: 1 unit TRAINING AND EDUCATION PROVIDED Adaptive Equipment/DME, Bed Mobility, Benefits of In-Hospital Mobility, Energy Conservation, Functional Mobility Involving ADLs, Grooming Tasks, Role of Occupational Therapy, Positioning, Precautions/Restrictio ns, Sitting Balance to Improve [place] with ADLs/Self-Care THERAPEUTIC SKILLS USED Activity Dosing, [...] Training, Balance Training, Energy Conservation Training SIGNATURE: STEAFN Ramos/Earl PATIENT NAME: Javier Dickson DATE: December 29, 2023 TIME: 9:07 AM [facility] 36on 12-28-2023 36 Patients last visit 07/19/22. Please advise. [facility] 36 Name of caller: Robert hurd from [facility] Contact phone number: [phone] opt #5 Relationship to Patient: Lucy from [facility] care Provider: Dr. Batista Practice: [facility] Chief Complaint/Reason for Call: Lucy from [facility] calling to see if Dr. Batista will follow the patient for home care. Please advise. Best time of day caller can be reached: any Patient advised that office/PCP has 24-48 business hours to return their call: No Normal [facility] Basic metabolic 2000 panelon 12-28-2023 Anion gap [Moles/Vol] 6 mmol/L Low 9-18 [facility] Comment on above: Order Comment: Speci men Type: BLOOD SPECIMENOrdering Facility: [facility] Address: [address] [place] [address] Performed By: #### 2 4321-2 ####[facility] LABORATORYCLIA [id number] [place] [address] [place] Calcium [Mass/Vol] 8.4 mg/dL Low 8.5-10.2 [facility] Comment on above: Order Comment: Speci men Type: BLOOD SPECIMENOrdering Facility: [facility] Address: [address] [place] [address] Performed By: #### 2 4321-2 ####[facility] LABORATORYCLIA [id number] [place] [address] [place] Chloride [Moles/Vol] 96 mmol/L Low 97-105 [facility] Comment on above: Order Comment: Speci men Type: BLOOD SPECIMENOrdering Facility: [facility] Address: [address] [place] [address] Performed By: #### 2 1-2 ####[facility]ORYCLIA [id number] [place] [address] [place] CO2 [Moles/Vol] 37 mmol/L High 22-30 [facility] Comment on above: Order Comment: Speci men Type: BLOOD SPECIMENOrdering Facility: [facility] Address: [address] [place] [address] Performed By: #### 2 4321-2 ####[facility] LABORATORYCLIA [id number] [place] [address] [place] Creatinine [Mass/Vol] 0.73 mg/dL Normal 0.73-1.22 [facility] Comment on above: Order Comment: Meng blancas Type: BLOOD SPECIMENOrdering Facility: [facility] Address: [address] [place] [address] Performed By: #### 2 4321-2 ####[facility]ORATORYCLIA [id number] [place] [id number] [place] Creatinine and Glomerular filtration rate.predicted panel (S/P/Bld) 109 mL/min/1.73m??? Normal >=60 [facility] Comment on above: Order Comment: Meng blancas Type: BLOOD SPECIMENOrdering Facility: [facility] Address: [address] [place] [address] Result Comment: Ingrid mated Glomerular Filtration Rate [...] actual GFR. Performed By: #### 2 4321-2 ####[facility]ATORYCLIA [id number] [place] [address] [place] Glucose [Mass/Vol] 108 mg/dL High 74-99 [facility] Comment on above: Order Comment: Meng blancas Type: BLOOD SPECIMENOrdering Facility: [facility] Address: [address] [place] [address] Result Comment: The [place] Diabetes Association (ADA) provides guidance for cutoff [...] Standards of Medical Care in Diabetes 2016, [employer]. Diabetes Care. 2016.39(Suppl 1). Performed By: #### 2 4321-2 ####[facility]ORYCLIA [id number] [address] [place] Potassium [Moles/Vol] 4.6 mmol/L Normal 3.7-5.1 [facility] Comment on above: Order Comment: Speci men Type: BLOOD SPECIMENOrdering Facility: [facility] Address: [address] [place] [address] Performed By: #### 2 4321-2 ####[facility] LABORATORYCLIA [id number] [address] [place] Sodium [Moles/Vol] 139 mmol/L Normal 136-144 [facility] Comment on above: Order Comment: Speci men Type: BLOOD SPECIMENOrdering Facility: [facility] Address: [address] [place] [address] Performed By: #### 2 4321-2 ####[facility] LABORATORYCLIA [id number] [address] STATES [facility] Urea nitrogen [Mass/Vol] 22 mg/dL Normal 9-24 [facility] Comment on above: Order Comment: Speci men Type: BLOOD SPECIMENOrdering Facility: [facility] Address: [address] [place] [address] Performed By: #### 2 4321-2 ####[facility] LABORATORYCLIA [id number] [address] STATES OF [facility] CBC panel Auto (Bld)on 12-28 Erythrocyte distribution width (RBC) [Ratio] 13.6 % Normal 11.5-15.0 [facility] Comment on above: Order Comment: Speci men Type: BLOOD SPECIMEN [facility]: [facility] Address: [address] [place] [address] Performed By: #### L [id number] #### [facility] CLIA [id number] [address] [place] Hematocrit (Bld) [Volume fraction] 41.4 % Normal 39.0-51.0 [facility] Comment on above: Order Comment: Speci men Type: BLOOD SPECIMEN Ordering Facility: [facility] Address: [address] [place] [address] Performed By: #### L [id number] #### [facility] CLIA [id number] [address] Hemoglobin (Bld) [Mass/Vol] 12.4 g/dL Low 13.0-17.0 [facility] Comment on above: Order Comment: Speci men Type: BLOOD SPECIMEN Ordering Facility: [facility] Address: [address] [place] [address] Performed By: #### L [id number] #### [facility] CLIA [id number] [address] MCH (RBC) [Entitic mass] 30.5 pg Normal 26.0-34.0 [facility] Comment on above: Order Comment: Speci men Type: BLOOD SPECIMEN [facility]ing [facility]: [facility] Address: [address] [place] [address] Performed By: #### L [id number] #### [facility] CLIA [id number] [address] MCHC (RBC) [Mass/Vol] 30.0 g/dL Low 30.5-36.0 [facility] Comment on above: Order Comment: Speci men Type: BLOOD SPECIMEN Ordering Facility: [facility] Address: [address] [place] [address] Performed By: #### L [id number] #### [facility] CLIA [id number] [address] MCV (RBC) [Entitic vol] 101.7 fL High 80.0-100.0 [facility] Comment on above: Order Comment: Speci men Type: BLOOD SPECIMEN Ordering Facility: [facility] Address: [address] [place] [address] Performed By: #### L [id number] #### [facility] CLIA [id number] [address] [place] [address] [place] Nucleated RBC (Bld) [#/Vol] 10*3/uL Normal <0.01 [facility] Comment on above: Order Comment: Speci men Type: BLOOD SPECIMEN [facility]ing Facility: [facility] Address: [address] [place] [address] Performed By: #### L [id number] #### [facility] CLIA [id number] [address] [place] Platelet mean volume (Bld) [Entitic vol] 9.7 fL Normal 9.0-12.7 [facility] Comment on above: Order Comment: Speci men Type: BLOOD SPECIMEN [facility]: [facility] Address: [address] [place] [address] Performed By: #### L [id number] #### [facility] CLIA [id number] [address] Platelets (Bld) [#/Vol] 291 10*3/uL Normal 150-400 [facility] Comment on above: Order Comment: Speci men Type: BLOOD SPECIMEN [facility]: [facility] Address: [address] [place] [address] Performed By: #### L [id number] #### [facility] CLIA [id number] [address] RBC (Bld) [#/Vol] 4.07 10*6/uL Low 4.20-6.00 [facility] Comment on above: Order Comment: Speci men Type: BLOOD SPECIMEN [facility] Facility: [facility] Address: [address] [place] [address] Performed By: #### L [id number] #### [facility] CLIA [id number] [address] [place] WBC (Bld) [#/Vol] 13.26 10*3/uL High 3.70-11.00 [facility] Comment on above: Order Comment: Speci men Type: BLOOD SPECIMEN [facility]: [facility] Address: [address] [place] [address] Performed By: #### L [id number] #### [facility] CLIA [id number] [address] [place] [id number] [facility] Felice 12-28-2023 CNPN Telephone (HCSIND) JAVIER DICKSON ([id number]) 1970 M Date Time Provider Department 12/28/23 MAYKEL JIMENEZ HCSIND During your visit today, we recorded the following information about you: mAee Yarbrough LPN 01/01/2024 3:06 PM Signed Allergies [...] Status:Closed by MAYKEL JIMENEZ on 12/28/23 Normal [facility] CONSULT PROGon 12-28-2023 CONSULT PROG HNO ID: [id number] Author: KASIA ABARCA PA-C Service: Pulmonary Disease Author Type: Physician End Frazer Type: Consult Progress Note Filed: 12/28/2023 10:33 Note Text: [facility] PULMONARY MEDICINE ICU FOLLOW-UP NOTE [...] at home. Does not follow with a long lines operator. Admits to shortness of breath and [...] 0.3 12/27/2023 Abs Neut 7.09 12/27/2023 Abs [place] 0.70 12/27/2023 Abs Eosin 0.10 12/27/2023 Abs [...] pulmonary interstit (more content not included)... Normal [facility] NURSING PROGon 12-28-2023 NURSING PROG HNO ID: [id number] Author: ELODIA TRIPATHI, RN Service: ? Author Type: Registered Nurse Type: Nursing Progress Note Filed: 12/28/2023 15:04 Note Text: Admission/Transfer Note PATIENT NAME: Javier Dickson Patient Location: [place] [address] [address] Room: [place] [address] Patient transferred to [facility] via wheelchair in stable condition. Actions taken: Report given/called to [facility]. Patient belongings with patient. This note was completed by: Elodia Tripathi Normal [facility] THERAPY NTon 12-28-2023 THERAPY NT HNO ID: [id number] Author: YOEL ALFARO PT Service: Physical Therapy Author Type: Physical Therapist Type: Therapy (PT/OT/Speech/Resp) Filed: 12/28/2023 11:34 Note Text: Physical Therapy Evaluation Summary SERVICE DATE: 12/28/2023 SERVICE TIME: 2290 to 1004 ROOM: [place] [address] PT 6 Clicks Score: 19 DISCHARGE RECOMMENDATIONS [...] breath. Son works during the day but [id number] at home, however patient reports being too stubborn to ask for assistance SUBJECTIVE Patient agreeable to PT session THERAPY DIAGNOSIS Muscle Weakness (generalized), Unsteadiness on feet, General symptoms and signs-other TREATMENT INTERVENTIONS Evaluation, Therapeutic Activity (60932) $ Evaluation-Moderate (31698) Billed Units: 1 unit Therapeutic Activity (63791) Treatment Minutes: 8 $ Therapeutic Activity (63824) Billed Units: 1 unit Educated patient on [...] Gait Training, (more content not included)... Normal [facility] ALLIED HEALTHon 12-27-2023 ALLIED HEALTH HNO ID: [id number] Author: SERA PEDRO RT(R) Service: Radiology Author [...] PATIENT PRESENTS WITH AN IMPLANTABLE OR ATTACHED LEVER MILLER: No ALLERGIES: Reviewed and unchanged CONTRAST ALLERGY: [...] December 27, 2023 TIME: 5:58 AM Normal [facility] Bacteria Bld Culton 12-27-19 24 Bacteria identified Cx Nom (Bld) CULTURE, BLOOD: No growth 5 days Normal [facility] Comment on above: Performed By: #### L [id number] #### [facility] CLIA [id number] [address] [place] [address] [place] Basic metabolic 2000 panelon 12-27-2023 Anion gap [Moles/Vol] 5 mmol/L Low 9-18 [facility] Comment on above: Order Comment: Speci men Type: BLOOD SPECIMEN [facility]: [facility] Address: [address] [facility] [place] [address] Performed By: #### 3 3762-6, 87304-9 #### [facility] CLIA [id number] [address] [place] [address] [place] Calcium [Mass/Vol] 8.8 mg/dL Normal 8.5-10.2 [facility] Comment on above: Order Comment: Speci men Type: BLOOD SPECIMEN [facility] Facility: [facility] Address: [address] [place] [address] Performed By: #### 3 3762-6, 56859-1 #### [place] [facility] CLIA [id number] [address] [place] Chloride [Moles/Vol] 100 mmol/L Normal 97-105 [facility] Comment on above: Order Comment: Speci men Type: BLOOD SPECIMEN [facility]: [facility] Address: [address] [place] [address] Performed By: #### 3 3762-6, 98381-0 #### [facility] CLIA [id number] [address] [place] CO2 [Moles/Vol] 37 mmol/L High 22-30 [facility] Comment on above: Order Comment: Speci men Type: BLOOD SPECIMEN [facility]: [facility] Address: [address] [place] [address] Performed By: #### 3 3762-6, 04528-7 #### [facility] CLIA [id number] [address] [place] Creatinine [Mass/Vol] 0.74 mg/dL Normal 0.73-1.22 [facility] Comment on above: Order Comment: Speci men Type: BLOOD SPECIMEN [facility]: [facility] Address: [address] [place] [address] Performed By: #### 3 3762-6, 16380-4 #### [facility] CLIA [id number] [address] Creatinine and Glomerular filtration rate.predicted panel (S/P/Bld) 109 mL/min/1.73m??? Normal >=60 [facility] Comment on above: Order Comment: Speci men Type: BLOOD SPECIMEN [facility]: [facility] Address: [address] [place] [address] Result Comment: Ingrid mated Glomerular Filtration Rate [...] actual GFR. Performed By: #### 3 3762-6, 66444-9 #### [facility] CLIA [id number] [address] [place] [address] [place] Glucose [Mass/Vol] 94 mg/dL Normal 74-99 [facility] Comment on above: Order Comment: Meng blancas Type: BLOOD SPECIMEN Ordering [facility]: [facility] Address: [address] [place] [address] Result Comment: The [place] Diabetes Association (ADA) provides guidance for cutoff [...] Standards of Medical Care in Diabetes 2016, [place] Diabetes Association. Diabetes Care. 2016.39(Suppl 1). Performed By: #### 3 3762-6, 27833-7 #### [facility] CLIA [id number] [address] [place] [address] [place] Potassium [Moles/Vol] 4.4 mmol/L Normal 3.7-5.1 [facility] Comment on above: Order Comment: Meng blancas Type: BLOOD SPECIMEN Order[facility]: [facility] Address: [address] [place] [address] Performed By: #### 3 3762-6, 84079-9 #### [place] [facility] CLIA [id number] [address] [place] [address] [place] Sodium [Moles/Vol] 142 mmol/L Normal 136-144 [facility] Comment on above: Order Comment: Speci men Type: BLOOD SPECIMEN Ordering Facility: [facility] Address: [address] [place] [address] Performed By: #### 3 3762-6, 43288-7 #### [facility] CLIA [id number] [address] STATES OF [facility] Urea nitrogen [Mass/Vol] 14 mg/dL Normal 9-24 [facility] Comment on above: Order Comment: Speci men Type: BLOOD SPECIMEN Order[facility]: [facility] Address: [facility] [place] [address] Performed By: #### 3 3762-6, 55563-9 #### [facility] CLIA [id number] [address] OF [facility] CBC W Auto Differential pane l (Bld)on 12-27-2023 Basophils (Bld) [#/Vol] 0.03 10*3/uL Normal <0.11 [facility] Comment on above: Order Comment: Speci men Type: BLOOD SPECIMEN Ordering [facility]: [facility] Address: [address] [place] [address] Performed By: #### 3 3762-6, 57355-8 #### [facility] CLIA [id number] [address] OF [facility] Basophils/100 WBC (Bld) 0.3 % Normal [facility] Comment on above: Order Comment: Speci men Type: BLOOD SPECIMEN Ordering Facility: [facility] Address: [address] [place] [address] Performed By: #### 3 3762-6, 61261-2 #### [place] [facility] CLIA [id number] [address] Differential cell count method Nom (Bld) Auto Normal [facility] Comment on above: Order Comment: Speci men Type: BLOOD SPECIMEN [facility]: [facility] Address: [address] [place] [address] Performed By: #### 3 3762-6, 00571-9 #### [facility] CLIA [id number] [address] [place] Eosinophils (Bld) [#/Vol] 0.10 10*3/uL Normal <0.46 [facility] Comment on above: Order Comment: Speci men Type: BLOOD SPECIMEN [facility]: [facility] Address: [address] [place] [address] Performed By: #### 3 6, 90779-9 #### [place] [facility] CLIA [id number] [address] [place] Eosinophils/100 WBC (Bld) 1.2 % Normal [facility] Comment on above: Order Comment: Speci men Type: BLOOD SPECIMEN [facility]: [facility] Address: [address] [place] [address] Performed By: #### 3 3766, 17909-1 #### [facility] CLIA [id number] [address] Erythrocyte distribution width (RBC) [Ratio] 13.8 % Normal 11.5-15.0 [facility] Comment on above: Order Comment: Speci men Type: BLOOD SPECIMEN [facility]ing Facility: [facility] Address: [address] [place] [address] Performed By: #### 3 37612-19, 66940-2 #### [facility] [facility] CLIA [id number] [address] [place] Hematocrit (Bld) [Volume fraction] 45.9 % Normal 39.0-51.0 [facility] Comment on above: Order Comment: Speci men Type: BLOOD SPECIMEN [facility] Facility: [facility] Address: [address] [place] [address] Performed By: #### 3 376-6, 16349-5 #### [facility] CLIA [id number] [address] [place] Hemoglobin (Bld) [Mass/Vol] 13.7 g/dL Normal 13.0-17.0 [facility] Comment on above: Order Comment: Speci men Type: BLOOD SPECIMEN [facility]ing Facility: [facility] Address: [address] [place] [address] Performed By: #### 3 3762-6, 70818-7 #### [place] [facility] CLIA [id number] [address] [place] Immature granulocytes (Bld) [#/Vol] 0.03 10*3/uL Normal <0.10 [facility] Comment on above: Order Comment: Speci men Type: BLOOD SPECIMEN Ordering Facility: [facility] Address: [address] [place] [address] Performed By: #### 3 376-6, 17705-6 #### [facility] [facility] CLIA [id number] [address] [place] Immature granulocytes/100 WBC (Bld) 0.3 % Normal [facility] Comment on above: Order Comment: Speci men Type: BLOOD SPECIMEN Ordering Facility: [facility] Address: [address] [place] [address] Performed By: #### 3 376-6, 24860-6 #### [facility] [facility] CLIA [id number] [address] [place] Lymphocytes (Bld) [#/Vol] 0.65 10*3/uL Low 1.00-4.00 [facility] Comment on above: Order Comment: Speci men Type: BLOOD SPECIMEN Ordering Facility: [facility] Address: [address] [place] [address] Performed By: #### 3 376-6, 23159-0 #### [facility] CLIA [id number] [address] [place] Lymphocytes/100 WBC (Bld) 7.6 % Normal [facility] Comment on above: Order Comment: Speci men Type: BLOOD SPECIMEN Ordering Facility: [facility] Address: [address] [place] [address] Performed By: #### 3 3762-6, 20485-0 #### [facility] CLIA [id number] [address] MCH (RBC) [Entitic mass] 30.3 pg Normal 26.0-34.0 [facility] Comment on above: Order Comment: Speci men Type: BLOOD SPECIMEN Ordering Facility: [facility] Address: [address] [place] [address] Performed By: #### 3 3762-6, 28394-9 #### [facility] CLIA [id number] [address] OF [facility] MCHC (RBC) [Mass/Vol] 29.8 g/dL Low 30.5-36.0 [facility] Comment on above: Order Comment: Speci men Type: BLOOD SPECIMEN Ordering Facility: [facility] Address: [address] [place] [address] Performed By: #### 3 3762-6, 31758-6 #### [facility] CLIA [id number] [address] MCV (RBC) [Entitic vol] 101.5 fL High 80.0-100.0 [facility] Comment on above: Order Comment: Speci men Type: BLOOD SPECIMEN Ordering Facility: [facility] Address: [address] [place] [address] Performed By: #### 3 3762-6, 92961-1 #### [facility] CLIA [id number] [address] Monocytes (Bld) [#/Vol] 0.70 10*3/uL Normal <0.87 [facility] Comment on above: Order Comment: Speci men Type: BLOOD SPECIMEN Ordering Facility: [facility] Address: [address] [place] [address] Performed By: #### 3 3762-6, 23923-7 #### [facility] CLIA [id number] [address] Monocytes/100 WBC (Bld) 8.1 % Normal A [facility] Comment on above: Order Comment: Speci men Type: BLOOD SPECIMEN Ordering Facility: [facility] Address: [address] [place] [address] Performed By: #### 3 3762-6, 72900-4 #### [facility] CLIA [id number] [address] [place] Neutrophils (Bld) [#/Vol] 7.09 10*3/uL Normal 1.45-7.50 [facility] Comment on above: Order Comment: Speci men Type: BLOOD SPECIMEN Ordering Facility: [facility] Address: [address] [place] [address] Performed By: #### 3 376-6, 37141-1 #### [facility] CLIA [id number] [address] [place] Neutrophils/100 WBC (Bld) 82.5 % Normal [facility] Comment on above: Order Comment: Speci men Type: BLOOD SPECIMEN Ordering Facility: [facility] Address: [address] [place] [address] Performed By: #### 3 3766, 30839-6 #### [facility] CLIA [id number] [address] [place] Nucleated RBC (Bld) [#/Vol] 10*3/uL Normal <0.01 [facility] Comment on above: Order Comment: Speci men Type: BLOOD SPECIMEN Ordering Facility: [facility] Address: [address] [place] [address] Performed By: #### 3 376-6, 49287-7 #### [facility] CLIA [id number] [address] [place] Nucleated RBC/100 WBC (Bld) [Ratio] 0.0 /100 WBC Normal [facility] Comment on above: Order Comment: Speci men Type: BLOOD SPECIMEN Ordering Facility: [facility] Address: [facility] [place] [address] Performed By: #### 3 3762-6, 69460-5 #### [facility] CLIA [id number] [address] [place] [address] [place] Platelet mean volume (Bld) [Entitic vol] 10.1 fL Normal 9.0-12.7 [facility] Comment on above: Order Comment: Speci men Type: BLOOD SPECIMEN Ordering Facility: [facility] Address: [address] [place] [address] Performed By: #### 3 3762-6, 74124-6 #### [facility] CLIA [id number] 1 [place] [address] [place] Platelets (Bld) [#/Vol] 328 10*3/uL Normal 150-400 [facility] Comment on above: Order Comment: Speci men Type: BLOOD SPECIMEN Ordering Facility: [facility] Address: [address] [place] [address] Performed By: #### 3 3762-6, 12242-5 #### [facility] CLIA [id number] [address] [place] RBC (Bld) [#/Vol] 4.52 10*6/uL Normal 4.20-6.00 [facility] Comment on above: Order Comment: Speci men Type: BLOOD SPECIMEN Ordering Facility: [facility] Address: [address] [place] [address] Performed By: #### 3 3762-6, 42956-9 #### [facility] CLIA [id number] [address] [place] WBC (Bld) [#/Vol] 8.60 10*3/uL Normal 3.70-11.00 [facility] Comment on above: Order Comment: Speci men Type: BLOOD SPECIMEN Ordering Facility: [facility] Address: [address] [place] [address] Performed By: #### 3 3762-6, 77196-9 #### [facility] CLIA [id number] [address] CONSULT PROGon 12-27-2023 CONSULT PROG HNO ID: [id number] Author: AYLEEN DENNEY RPh Service: Pharmacy Author [...] pharmacy if there are questions. Ayleen Denney [facility] Normal [facility] CONSULT PROG HNO ID: [id number] Author: SATHISH SHETH [facility] Service: Pharmacy Author Type: Pharmacist Type: Consult [...] have any questions[place] [phone]. Age: [age] year old Allergies: ALLERGIES No [...] Vancomycin Levels: No results found for: GISELLA Sheth [facility] Normal [facility] CRP SerPl-mCncon 12-27-2023 CRP [Mass/Vol] 0.5 mg/dL Normal <0.9 [facility] Comment on above: Order Comment: Speci men Type: BLOOD SPECIMENOrdering Facility: [facility] Address: [address] [place] [address] Performed By: #### 1 988-5 ####[facility] [id number] [place] [address] [place] CT CHEST W IVCONon CT CHEST W IVCON * * *Final Report* * * DATE OF EXAM: Dec 27 2023 6:15AM [facility] 0539 - CT CHEST W IVCON / [...] No abnormality in the imaged upper abdomen. Bass Viol Repairer (topogram) images: Unremarkable. IMPRESSION: Severe emphysema. 9.4 cm bulla at the left apex. Small right pleural effusion with subjacent compressive atelectasis. Radio Electrician: PSCB Transcribe Date/Time: Dec 27 2023 6:20A Dictated by : MARY PRASAD MD This examination was interpreted and the report reviewed and electronically signed by: MARY PRASAD MD on Dec 27 2023 6:25AM EST [id number] Normal [facility] ECG COMPLETEon 12-27-2023 ECG COMPLETE Ventricular Rate : 1 00 BPM Atrial Rate : 100 BPM P-R Interval : 132 ms QRS Duration : 80 ms Q-T Interval : 332 ms QTC Calculation(Bazett) : 428 ms Calculated P [place] : 83 degrees Calculated R [place] : -100 degrees Calculated T [place] : 63 degrees NORMAL SINUS RHYTHM RIGHT SUPERIOR AXIS DEVIATION PULMONARY DISEASE PATTERN ABNORMAL ECG WHEN COMPARED WITH ECG OF 13-NOV-2023 05:11, FUSION COMPLEXES ARE NO LONGER PRESENT Confirmed by MD SINGH ERICK ([id number]) on 01/01/2024 3:00:05 AM NAME : JAVIER DICKSON PID : [id number] : 1970 Gender : Male Race : ORD : [id number] Procedure Date : Dec 27 2023 02:58:15 Edit Date : Jan 01 2024 03:00:06 Diagnosis: NORMAL SINUS RHYTHM RIGHT SUPERIOR AXIS DEVIATION PULMONARY DISEASE PATTERN ABNORMAL ECG WHEN COMPARED WITH ECG OF 13-NOV-2023 05:11, FUSION COMPLEXES ARE NO LONGER PRESENT Confirmed by MD SINGH ERICK ([id number]) on 01/01/2024 3:00:05 AM Test Reason : Chest Pain Location : 4 : [facility] EM Overread By : MD SINGH ERICK Edited By : MD SINGH ERICK Referred By : , Acquired by : AZUL BRADEN Normal [facility] ED NOTEon 12-27-2023 ED NOTE HNO ID: [id number] Author: AZUL BRADEN RN Service: ? Author Type: Registered Nurse Type: ED Notes Filed: 12/27/2023 05:49 Note Text: Report given to MICU RN. CT notified [facility] ED NOTE HNO ID: [id number] Author: AZUL BRADEN RN Service: ? Author [...] a safe and comfortable position on the cardiac technician with call light within reach and continuous pulse oximetry. [facility] ED NOTE HNO ID: [id number] Author: AZUL BRADEN RN Service: ? Author [...] even eating chips makes my breathing hard." [facility] ED NOTE HNO ID: [id number] Author: AZUL BRADEN RN Service: ? Author [...] did they put the apparatus back on. Normal [facility] ED NOTE HNO ID: [id number] Author: AZUL BRADEN RN Service: ? Author Type: Registered Nurse Type: ED Notes Filed: 12/27/2023 02:52 Note Text: US notified Normal [facility] ED NOTE HNO ID: [id number] Author: AZUL BRADEN RN Service: ? Author Type: Registered Nurse Type: ED Notes Filed: 12/27/2023 03:18 Note Text: Pt placed on BiPAP by respiratory. Normal [facility] ED NOTE HNO ID: [id number] Author: HOWARD FARFAN DO Service: Emergency Medicine [...] Solu-Medrol. Anticipate admission. Workup and disposition pending. [facility] ED NOTE HNO ID: [id number] Author: AZUL BRADEN RN Service: ? Author Type: Registered Nurse Type: ED Notes Filed: 12/27/2023 01:57 Note Text: Pt placed on 6L NC from the 2L NC. Pt endorses increased ease of breathing. Pt left in a safe and comfortable position on cardiac monitoring and continuous pule oximetry. Respiratory Therapy at the bedside giving a breathing treatment. [facility] ED NOTE HNO ID: [id number] Author: NENITA HUGHES RN Service: ? Author Type: Registered Nurse Type: ED Notes Filed: 12/27/2023 01:46 Note Text: Bed: 15-ED Expected date: Expected time: Means of arrival: Comments: MED 10 [facility] ED PROV NOTEon 12-27-2023 ED PROV NOTE HNO ID: [id number] Author: HOWARD FARFAN DO Service: Emergency Medicine [...] past few weeks. EMS gave 1 Duoneb COIL TIER. Pt sts "I always have SOB but [...] tenderness, deformity (more content not included)... Normal [facility] FLUABV+SARS-CoV-2+RSV Pnl Re sp EH+probeon 12-27-2023 FLUABV+SARS-CoV-2+RSV Pnl Resp EH+probe COVID 19 RESULT: Not detected The method used is RT-PCR or an equivalent NAAT method. Reference Range(the expected result in uninfected individuals): Not detected INFLUENZA A PCR: Not detected INFLUENZA B PCR: Not detected RSV PCR: Not detected Normal [facility] Comment on above: Performed By: #### L [id number] #### [facility] CLIA [id number] 1 [place] [address] [place] HIGH SENSITIVITY TROPONIN T (INITIAL)on 12-27-2023 Troponin T.cardiac High sensitivity method [Mass/Vol] 64 ng/L High <12 [facility] Comment on above: Order Comment: Specnaren blancas Type: BLOOD SPECIMEN Ordering Facility: [facility] Address: [address] [place] [address] Result Comment: When assessing risk for acute [...] 30 day MACE. Performed By: #### L [id number] #### [facility] CLIA [id number] 1 [place] [address] [place] HIGH SENSITIVITY TROPONIN T (SECOND)on 12-27-2023 Troponin T.cardiac High sensitivity method [Mass/Vol] 58 ng/L High <12 [facility] Comment on above: Order Comment: Speci yonny Type: BLOOD SPECIMEN Ordering Facility: [facility] Address: [address] [place] [address] Result Comment: When assessing risk for acute [...] 30 day MACE. Performed By: #### L [id number] #### [facility] CLIA [id number] [address] HIGH SENSITIVITY TROPONIN T (THIRD) 3 HRS AFTER INITIALon 12-27-2023 Troponin T.cardiac High sensitivity method [Mass/Vol] 55 ng/L High <12 [facility] Comment on above: Order Comment: Speci men Type: BLOOD SPECIMEN Ordering Facility: [facility] Address: [address] [place] [address] Result Comment: When assessing risk for acute [...] day MACE. Performed By: #### 3 3762-6, 96491-4 #### [facility] CLIA [id number] [address] [place] [address] OF [facility] HISTORY PHYSICALon HISTORY PHYSICAL HNO ID: [id number] Author: NAYE GONZALEZ MD Service: Critical Care [...] heart failure with preserved EF -Type 2 PR, no chest pain -polysubstance abuse [facility] [...] organ s (more content not included)... Normal [facility] HISTORY PHYSICAL HNO ID: [id number] Author: NAYE GONZALEZ MD Service: Critical Care Author Type: Physician Type: H&P Filed: 12/27/2023 06:40 Note Text: [facility] PATIENT NAME: Javier Dickson ADMITTED FOR: Acute on chronic hypercapnic hypoxic respiratory failure DATE: 12/27/2023 Subjective HPI Mr. Javier Dickson is a 53 year old male with PMH of: -COPD no oxygen baseline Patient presented to [facility] with a chief complaint of SOB, [...] male with PMH of COPD presents to [facility] ED for SOB and cough. MICU [...] and Airways Line Duration Peripheral 12/27/23 0151 [facility] Short Left Forearm 18 Gauge <1 day SIGNATURE: Evelyn Orozco MD PATIENT NAME: Javier Dickson DATE: December 27, 2023 TIME: 3:36 AM PAGER#: Attending Note I evaluated the patient and personally participated in the carlos components. I agree with the re (more content not included)... Normal [facility] Legionella Ag Ur Qlon 2023 Legionella sp Ag Ql (U) Negative Normal Negative A [facility] Comment on above: Order Comment: Speci yonny Type: BLOOD SPECIMEN Ordering Facility: [facility] Address: [address] [place] [address] Result Comment: Pres umptive negative for L. [...] of the test. Performed By: #### L [id number] #### [facility] CLIA [id number] 1 [place] [address] [place] Magnesium SerPl-mCncon 12-27 Magnesium [Mass/Vol] 1.9 mg/dL Normal 1.7-2.3 [facility] Comment on above: Order Comment: Speci men Type: BLOOD SPECIMENOrdering Facility: [facility] Address: [address] [place] [address] Performed By: #### 1 9123-9, 18288-0, 2777-1 ####[facility] [id number] [address] NT-proBNP [facility] 12-27 Natriuretic peptide.B prohormone N-Terminal [Mass/Vol] 3703 pg/mL High <125 [facility] Comment on above: Order Comment: Speci men Type: BLOOD SPECIMEN Ordering Facility: [facility] Address: [address] [place] [address] Performed By: #### 3 3762-6, 50394-4 #### [facility] CLIA [id number] [address] NUTRITIONon 12-27-2023 NUTRITION HNO ID: [id number] Author: SCOTTY SIMON RD Service: Nutrition Therapy [...] Care Plan: Continue current diet Supplements: Boost [facility] Monitor and Evaluation: Meet greater than 75% [...] December 27, 2023 TIME: 7:56 AM Normal [facility] Phosphate SerPl-mCncon 12-27 Phosphate [Mass/Vol] 3.4 mg/dL Normal 2.7-4.8 [facility] Comment on above: Order Comment: Speci men Type: BLOOD SPECIMENOrdering Facility: [facility] Address: [address] [place] [address] Performed By: #### 1 9123-9, 54957-0, 2777-1 ####[facility] [id number] [place] [address] [place] Procalcitonin SerPl-mCncon 0 12-27-2023 Procalcitonin [Mass/Vol] 0.07 ng/mL Normal <0.09 [facility] Comment on above: Order Comment: Speci men Type: BLOOD SPECIMENOrdering Facility: [facility] Address: [address] [place] [address] Result Comment: For a guided interpretation of test results, please visit the Change in Procalcitonin Calculator, [email or web address]. Performed By: #### 1 9123-9, 47254-0, 2777-1 ####[facility] [id number] [place] [address] [place] STAPH AUREUS PCRon 4 S. aureus and MRSA panel EH+probe (Nose) Abnormal Negative [facility] Comment on above: Order Comment: Speci men Type: BLOOD SPECIMEN Ordering Facility: [facility] Address: [address] [place] [address] Result Comment: Posi tive for Staphylococcus aureus by PCR. Positive for MRSA by PCR Performed By: #### 3 3762-6, 75899-8 #### [facility] CLIA [id number] [address] [place] STREPTOCOCCUS PNEUMONIAE AGo n 12-27-2023 STREPTOCOCCUS PNEUMONIAE AG STREP PNEUMO AG RESULT: Negative for Streptococcus pneumoniae antigen. Presumptive negative for pneumococcal pneumonia, suggesting no current or recent pneumococcal infection. Infection due to S.pneumoniae cannot be ruled out since the antigen present in the sample may be below the detection limit of the test. Normal [facility] Comment on above: Performed By: #### S PNAG ####[facility]ORY[facility]IA [id number] [place] [address] [place] US DVT LOWER LTon 12-27-2023 US DVT LOWER LT * * *Final Report* * * DATE OF EXAM: Dec 27 2023 3:11AM [place] [address] - DVT LOWER LT / PROCEDURE REASON: [...] imaged segments of the left lower extremity. Radio Electrician: PSCB Transcribe Date/Time: Dec 27 2023 3:19A Dictated by : MARY PRASAD MD This examination was interpreted and the report reviewed and electronically signed by: MARY PRASAD MD on Dec 27 2023 3:23AM EST [id number] Normal [facility] Urinalysis complete panel (U )on 12-27-2023 Bilirubin Ql (U) Negative Normal Negative [facility] Comment on above: Order Comment: Speci men Type: BLOOD SPECIMEN Ordering Facility: [facility] Address: [address] [place] [address] Performed By: #### 3 3762-6, 39050-0 #### [facility] CLIA [id number] [address] [place] Clarity (Unsp spec) Clear Normal Clear [facility] Comment on above: Order Comment: Speci men Type: BLOOD SPECIMEN Ordering Facility: [facility] Address: [address] [place] [address] Performed By: #### 3 3762-6, 25708-6 #### [facility] CLIA [id number] [address] [place] Color (U) Colorless Normal yellow [facility] Comment on above: Order Comment: Speci men Type: BLOOD SPECIMEN Ordering Facility: [facility] Address: [address] [place] [address] Performed By: #### 3 3762-6, 87224-9 #### [facility] CLIA [id number] [address] [place] Glucose Test strip (U) [Mass/Vol] Negative Normal Trace, Negative [facility] Comment on above: Order Comment: Speci men Type: BLOOD SPECIMEN Ordering Facility: [facility] Address: [address] [place] [address] Performed By: #### 3 3762-6, 25930-1 #### [facility] CLIA [id number] [address] Hemoglobin Ql (U) Negative Normal Negative, Trace [facility] Comment on above: Order Comment: Speci men Type: BLOOD SPECIMEN Ordering Facility: [facility] Address: [address] [place] [address] Performed By: #### 3 3762-6, 56599-5 #### [facility] CLIA [id number] [address] Ketones Ql (U) Negative Normal Negative, Trace [facility] Comment on above: Order Comment: Speci men Type: BLOOD SPECIMEN Ordering Facility: [facility] Address: [address] [place] [address] Performed By: #### 3 3762-6, 32925-8 #### [facility] CLIA [id number] [address] Leukocyte esterase Test strip Ql (U) Negative Normal Negative, 25 Mahin/uL [facility] Comment on above: Order Comment: Speci men Type: BLOOD SPECIMEN Ordering Facility: [facility] Address: [facility] [place] [address] Performed By: #### 3 3762-6, 64925-4 #### [facility] CLIA [id number] [address] Nitrite Ql (U) Negative Normal Negative [facility] Comment on above: Order Comment: Speci men Type: BLOOD SPECIMEN Ordering Facility: [facility] Address: [facility] [place] [address] Performed By: #### 3 3762-6, 20051-2 #### [facility] CLIA [id number] [address] pH (U) 5.0 [pH] Normal 5.0-8.0 [facility] Comment on above: Order Comment: Speci men Type: BLOOD SPECIMEN Ordering Facility: [facility] Address: [address] [place] [address] Performed By: #### 3 3762-6, 48595-4 #### [facility] CLIA [id number] [address] [place] Protein (U) [Mass/Vol] Negative Normal Trace , Negative [facility] Comment on above: Order Comment: Speci men Type: BLOOD SPECIMEN Ordering Facility: [facility] Address: [address] [place] [address] Performed By: #### 3 3762-6, 33976-8 #### [facility] CLIA [id number] [address] [place] RBC LM.HPF (Urine sed) [#/Area] 0-3 /HPF Normal 0-3 /HPF [facility] Comment on above: Order Comment: Speci men Type: BLOOD SPECIMEN Ordering Facility: [facility] Address: [address] [place] [address] Performed By: #### 3 3762-6, 68446-8 #### [facility] CLIA [id number] [address] Specific gravity (U) [Rel density] 1.005 Normal 1.005-1.030 [facility] Comment on above: Order Comment: Speci men Type: BLOOD SPECIMEN Ordering Facility: [facility] Address: [address] [place] [address] Performed By: #### 3 3762-6, 92922-6 #### [facility] CLIA [id number] [address] [place] Urobilinogen Ql (U) Normal Normal Normal [facility] Comment on above: Order Comment: Speci men Type: BLOOD SPECIMEN Ordering Facility: [facility] Address: [address] [place] [address] Performed By: #### 3 3762-6, 20974-9 #### [facility] CLIA [id number] [address] [place] WBC LM.HPF (Urine sed) [#/Area] 0-5 /HPF Normal 0-5 /HPF [facility] Comment on above: Order Comment: Speci men Type: BLOOD SPECIMEN Ordering Facility: [facility] Address: [address] [place] [address] Performed By: #### 3 3762-6, 12464-6 #### [facility] CLIA [id number] [address] [place] [address] [place] XR CHEST 1V FRONTALon [...] edema with a small right pleural effusion. Radio Electrician: ROLANDO Transcribe Date/Time: Dec 27 2023 2:46A Dictated by : SABRINA CROFT MD This examination was interpreted and the report reviewed and electronically signed by: SABRINA CROFT MD on Dec 27 2023 2:53AM EST [id number] [facility] 36on 12-25-2023 36 Made Several attempt s to call Pt to Schedule an DIGITAL PHOTOGRAPHER Appt. And NO ANSWER @ [phone] the contact number has not been set-Up so I am unable to Leave a Message. Thank You [facility] 36 Name of Caller: Javier Contact Reason for Appointment: Javier submitted an online request on 12/21/23 regarding a call back to get scheduled for a DIGITAL PHOTOGRAPHER appt for Dx: COPD Exacerbation (11/13/23 [facility] ED). Javier states he would like to get scheduled for an apt [place]. Javier states he is available for call back anytime. Please contact Javier and advise. Office Name: Bishnu Hendrickson Medication Refills need, if any: N/A Medication Name: N/A Normal [facility] CNPNon 12-01-2023 CNPN Telephone (PODCCP) JAVIER DICKSON ([id number]) 1970 M Date Time Provider Department 12/01/23 [...] Encounter Status:Closed by CHAZ LOYD on 12/01/23 [facility] Progress Noteon 11-28-2023 Progress Note Made 2 attempts to call patient. Left message for patient to return call. If patient returns call, pleased ask the questions and schedule a hospital follow up appointment. Please send letter also requesting patient call us for scheduling. Thanks! [facility] Progress Note Printed letter and placed in the mail [facility] Progress Noteon 11-27-2023 Progress Note Noted, covering for PCP. [facility] 36on 11-23-2023 [address] [facility] ALLIED HEALTHon 11-23-2023 ALLIED HEALTH HNO ID: [id number] Author: LESLI RODRIGUES Chaplain Service: ? Author Type: Type: Allied Health Filed: 11/23/2023 15:53 Note Text: SPIRITUAL CARE PROGRESS NOTE SERVICE DATE: 11/23/2023 SERVICE TIME: 3:30 PM Ch attended pt as referred and delivered clothing. To contact the Spiritual Care Department: Please call [phone]. SIGNATURE: Chaplain Lorena PATIENT NAME: Javier Dickson DATE: November 23, 2023 TIME: 3:53 PM PAGER/CONTACT #: [phone] [facility] CNDSon 11-23-2023 CNDS HNO ID: [id number] Author: DAVION SUGGS MD Service: Hospital Medicine [...] Attending Provider: Davion Suggs MD Primary Service: [facility] MY CONDITION AT DISCHARGE: Stable REASON I [...] right basilar patchy opacity favoring infection. MRSA abbhw-lipbmxtd-qnlwnvd with Bactroban. Legionella pneumococcal antigen negative. Completed [...] and prn Albuterol. Needs outpatient follow-up with long lines operator-he was to follow-up with the long lines operator in [facility] 5. Tobacco use: Reports he he has [...] address listed as his home address in [employer]; he knows he can get to his son's friend house from there which is around the corner. At discharge he will be given home-going medications from our pharmacy. He has been recommended to follow-up with PCP in a week and with long lines operator. He has been recommended to have [...] Resume pre-ho (more content not included)... Normal [facility] 36on 11-22-2023 36 Name of caller: Rachel sommer Contact phone number: [phone] Relationship to Patient: [facility] Provider: Dr. Kelsi Batista Practice: [facility] Chief Complaint/Reason for Call: The patient is being seen at [facility] for SOB right now. If you have any questions, please call, Colleen Armenta time of day caller can be reached: 4:30 pm Patient advised that office/PCP has 24-48 business hours to return their call: Yes Normal [employer] [facility] ALLIED HEALTHon 11-22-2023 ALLIED HEALTH HNO ID: [id number] Author: VIPUL PEREZ Personnel Security Specialist Service: Pulmonary Rehab Author Type: Personnel Security Specialist Type: Allied Health Filed: 11/22/2023 18:06 Note Text: PULMONARY REHABILITATION PATIENT EDUCATION PROGRESS NOTE Name: Javier Dickson Date of Service: 11/22/23 Time of Service: 1707 ASSESSMENT: Risk Factors/Significant Medical History Identified: Diagnosis: [...] Used: Pulmonary Rehabilitation Brochure Signature: Vipul Perez Personnel Security Specialist Pager: [phone] Date: November 22, 2023 Time: 6:05 PM [facility] Basic metabolic 2000 panelon 11-22-2023 Anion gap [Moles/Vol] 6 mmol/L Low 9-18 [facility] Comment on above: Order Comment: Speci men Type: BLOOD SPECIMEN Ordering Facility: [facility] Address: [address] [place] [address] Performed By: #### 3 3762-6, 43754-1 #### [facility] CLIA [id number] [address] [place] Calcium [Mass/Vol] 8.8 mg/dL Normal 8.5-10.2 [facility] Comment on above: Order Comment: Speci men Type: BLOOD SPECIMEN Ordering Facility: [facility] Address: [address] [place] [address] Performed By: #### 3 3762-6, 31904-6 #### [facility] CLIA [id number] [address] [place] [address] [place] Chloride [Moles/Vol] 97 mmol/L Normal 97-105 [facility] Comment on above: Order Comment: Speci men Type: BLOOD SPECIMEN Ordering Facility: [facility] Address: [address] [place] [address] Performed By: #### 3 3762-6, 82790-5 #### [facility] CLIA [id number] [address] [place] CO2 [Moles/Vol] 33 mmol/L High 22-30 [facility] Comment on above: Order Comment: Speci men Type: BLOOD SPECIMEN Ordering Facility: [facility] Address: [address] [place] [address] Performed By: #### 3 3762-6, 41959-5 #### [facility] CLIA [id number] [address] [place] [address] [place] Creatinine [Mass/Vol] 0.62 mg/dL Low 0.73-1.22 [facility] Comment on above: Order Comment: Speci men Type: BLOOD SPECIMEN Ordering Facility: [facility] Address: [address] [place] [address] Performed By: #### 3 3762-6, 66116-1 #### [facility] CLIA [id number] 1 [place] [address] [place] Creatinine and Glomerular filtration rate.predicted panel (S/P/Bld) 115 mL/min/1.73m??? Normal >=60 [facility] Comment on above: Order Comment: Meng blancas Type: BLOOD SPECIMEN Ordering Facility: [facility] Address: [address] [place] [address] Result Comment: Ingrid mated Glomerular Filtration Rate [...] actual GFR. Performed By: #### 3 3762-6, 19101-3 #### [facility] CLIA [id number] [address] [place] [address] [place] Glucose [Mass/Vol] 98 mg/dL Normal 74-99 [facility] Comment on above: Order Comment: Meng blancas Type: BLOOD SPECIMEN Ordering Facility: [facility] Address: [address] [place] [address] Result Comment: The [place] Diabetes Association (ADA) provides guidance for cutoff [...] Standards of Medical Care in Diabetes 2016, [employer] Diabetes Association. Diabetes Care. 2016.39(Suppl 1). Performed By: #### 3 3762-6, 64137-5 #### [facility] CLIA [id number] [address] [place] [address] [place] Potassium [Moles/Vol] 4.5 mmol/L Normal 3.7-5.1 [facility] Comment on above: Order Comment: Speci men Type: BLOOD SPECIMEN Ordering Facility: [facility] Address: [address] [place] [address] Performed By: #### 3 3762-6, 73215-3 #### [facility] CLIA [id number] [address] Sodium [Moles/Vol] 136 mmol/L Normal 136-144 [facility] Comment on above: Order Comment: Speci men Type: BLOOD SPECIMEN Ordering Facility: [facility] Address: [address] [place] [address] Performed By: #### 3 3762-6, 62755-8 #### [facility] CLIA [id number] [address] [place] Urea nitrogen [Mass/Vol] 14 mg/dL Normal 9-24 [facility] Comment on above: Order Comment: Speci men Type: BLOOD SPECIMEN Ordering Facility: [facility] Address: [address] [place] [address] Performed By: #### 3 3762-6, 30885-0 #### [facility] CLIA [id number] [address] STATES OF [facility] CBC panel Auto (Bld)on 11-22 Erythrocyte distribution width (RBC) [Ratio] 12.6 % Normal 11.5-15.0 [facility] Comment on above: Order Comment: Speci men Type: BLOOD SPECIMENOrdering Facility: [facility] Address: [address] [place] [address] Performed By: #### 5 8410-2 ####[facility] [id number] [address] OF [facility] Hematocrit (Bld) [Volume fraction] 41.0 % Normal 39.0-51.0 [facility] Comment on above: Order Comment: Speci men Type: BLOOD SPECIMENOrdering Facility: [facility] Address: [address] [place] [address] Performed By: #### 5 8410-2 ####[facility] [id number] [address] OF [facility] Hemoglobin (Bld) [Mass/Vol] 13.3 g/dL Normal 13.0-17.0 [facility] Comment on above: Order Comment: Speci men Type: BLOOD SPECIMENOrdering Facility: [facility] Address: [address] [place] [address] Performed By: #### 5 8410-2 ####[facility] [id number] [address] OF [facility] MCH (RBC) [Entitic mass] 31.1 pg Normal 26.0-34.0 [facility] Comment on above: Order Comment: Speci men Type: BLOOD SPECIMENOrdering Facility: [facility] Address: [address] [place] [address] Performed By: #### 5 8410-2 ####[facility] [id number] [address] MCHC (RBC) [Mass/Vol] 32.4 g/dL Normal 30.5-36.0 [facility] Comment on above: Order Comment: Speci men Type: BLOOD SPECIMENOrdering Facility: [facility] Address: [address] [place] [address] Performed By: #### 5 8410-2 ####[facility] [id number] [address] MCV (RBC) [Entitic vol] 95.8 fL Normal 80.0-100.0 [facility] Comment on above: Order Comment: Speci men Type: BLOOD SPECIMENOrdering Facility: [facility] Address: [address] [place] [address] Performed By: #### 5 8410-2 ####[facility] [id number] [address] Nucleated RBC (Bld) [#/Vol] 10*3/uL Normal <0.01 [facility] Comment on above: Order Comment: Speci men Type: BLOOD SPECIMENOrdering Facility: [facility] Address: [address] [place] [address] Performed By: #### 5 8410-2 ####[facility] [id number] [address] [place] Platelet mean volume (Bld) [Entitic vol] 9.6 fL Normal 9.0-12.7 [facility] Comment on above: Order Comment: Speci men Type: BLOOD SPECIMENOrdering Facility: [facility] Address: [address] [place] [address] Performed By: #### 5 8410-2 ####[facility]ORY[facility]IA [id number] [place] [address] [place] Platelets (Bld) [#/Vol] 338 10*3/uL Normal 150-400 [facility] Comment on above: Order Comment: Speci men Type: BLOOD SPECIMENOrdering Facility: [facility] Address: [address] [place] [address] Performed By: #### 5 8410-2 ####[facility]ORY[facility]IA [id number] [place] [address] [place] RBC (Bld) [#/Vol] 4.28 10*6/uL Normal 4.20-6.00 [facility] Comment on above: Order Comment: Speci men Type: BLOOD SPECIMENOrdering Facility: [facility] Address: [address] [place] [address] Performed By: #### 5 8410-2 ####[facility]ORY[facility]IA [id number] [place] [address] [place] WBC (Bld) [#/Vol] 8.66 10*3/uL Normal 3.70-11.00 [facility] Comment on above: Order Comment: Speci men Type: BLOOD SPECIMENOrdering Facility: [facility] Address: [address] [place] [address] Performed By: #### 5 8410-2 ####[facility] [id number] [address] [place] CONSULTon 11-22-2023 CONSULT HNO ID: [id number] Author: NEPTALI BUTLER, PhD Service: Bioethics Author [...] DATE: November 22, 2023 TIME: 4:41 PM [facility] NURSING PROGon 11-22-2023 NURSING PROG HNO ID: [id number] Author: NAE BAKER RN Service: ? Author Type: Registered Nurse Type: Nursing Progress Note Filed: 11/22/2023 10:56 Note Text: CASE MANAGEMENT HOME OXYGEN EVALUATION SERVICE DATE: 11/22/2023 Patient Location: [place] [address] SERVICE TIME: 1045 Assessment: Patient's SPO2 on room air at rest is 92-94%. Patient's SPO2 on room air with exercise is 88%. Patient's SPO2 on room air at rest following exercise (2 minutes) is 90%. SIGNATURE: Nae Baker RN PATIENT NAME: Javier Dickson DATE: November 22, 2023 TIME: 10:45 AM PAGER/CONTACT #: [phone] [facility] NUTRITIONon 11-22-2023 NUTRITION HNO ID: [id number] Author: ELIZABETH LITTLE RD Service: Nutrition Therapy [...] fat/muscle stores, Low BMI Estimated kilocalorie needs: 9185-0578 (underweight, COPD) Calorie Calculation Method: 30-35 kcals/kg [...] abuse who was admitted for COPD exacerbation ([facility]) [J44.1] and being treated for acute respiratory failure 2/2 PNA and RSV. PAST MEDICAL HISTORY Diagnosis Date Bowel obstruction (HCC) COPD (chronic obstructive pulmonary disease) ([facility]) Intake History: Nutrition Intake Prior to Admission: [...] NOW Question Answer Comment Supplement 1 BOOST [facility] STRAWBERRY Supplement 1 Frequency BREAKFAST Supplement 2 BOOST [facility] VANILLA Supplement 2 Frequency DINNER Supplement 3 [...] November 22, 2023 TIME: 10:18 AM Normal [facility] NURSING PROGon 11-21-2023 NURSING PROG HNO ID: [id number] Author: JACKIE JONES, RN Service: Nursing Author Type: Registered Nurse Type: Nursing Progress Note Filed: 11/21/2023 13:23 Note Text: Other: SpO2 room air at rest 92% SpO2 room air with exertion 87% SpO2 90% on 3L NC with exertion Jackie jones rn Normal [facility] NUTRITIONon 11-21-2023 NUTRITION HNO ID: [id number] Author: REBECCA ODONNELL DTR Service: Nutrition Therapy Author Type: Charting Clerk Type: Nutrition Filed: 11/21/2023 14:14 Note Text: NUTRITION THERAPY STOCKROOM HELPER NOTE SERVICE DATE: 11/21/2023 SERVICE TIME: 1110 Visit Type: Length of Stay Patient reports decreasing appetite since admission and unintentional weight loss over the past 6 months. Noted fat/muscle loss. Discussed patient with Registered Dietitian. Will refer to RD (Registered Dietitian) for further nutrition interventions. Plan of Care: Supplements: Boost [facility] (twice per day) Follow-Up: Refer to Registered [...] November 21, 2023 TIME: 2:11 PM Normal [facility] NURSING PROGon 11-20-2023 NURSING PROG HNO ID: [id number] Author: JACKIE JONES, RN Service: Nursing Author Type: Registered Nurse Type: Nursing Progress Note Filed: 11/20/2023 10:45 Note Text: Other: SpO2 room air at rest 92% SpO2 room air with exertion 86% SpO2 92% on 4L NC with exertion Jackie jones rn Normal [facility] ALLIED HEALTHon 11-19-2023 ALLIED HEALTH HNO ID: [id number] Author: MEDAROD PENALOZA RT(R) Service: ? Author Type: Technologist [...] Inpatient: see LDA documentation SIGNED BY: RT Anders(Jorge) November 19, 2023 12:30 PM Normal [facility] Basic metabolic 2000 panelon 11-19-2023 Anion gap [Moles/Vol] 7 mmol/L Low 9-18 [facility] Comment on above: Order Comment: Speci men Type: BLOOD SPECIMEN Ordering Facility: [facility] Address: [address] [place] [address] Performed By: #### 3 3762-6, 14478-5 #### [facility] CLIA [id number] [address] [place] Calcium [Mass/Vol] 8.9 mg/dL Normal 8.5-10.2 [facility] Comment on above: Order Comment: Speci men Type: BLOOD SPECIMEN Ordering Facility: [facility] Address: [address] [place] [address] Performed By: #### 3 3762-6, 87799-3 #### [facility] CLIA [id number] [address] [place] [address] [place] Chloride [Moles/Vol] 94 mmol/L Low 97-105 [facility] Comment on above: Order Comment: Speci men Type: BLOOD SPECIMEN Ordering Facility: [facility] Address: [facility] [place] [address] Performed By: #### 3 3762-6, 68558-1 #### [facility] CLIA [id number] [address] [place] CO2 [Moles/Vol] 35 mmol/L High 22-30 [facility] Comment on above: Order Comment: Speci men Type: BLOOD SPECIMEN Ordering Facility: [facility] Address: [address] [place] [address] Performed By: #### 3 3762-6, 25278-3 #### [facility] CLIA [id number] [address] [place] [address] [place] Creatinine [Mass/Vol] 0.62 mg/dL Low 0.73-1.22 [facility] Comment on above: Order Comment: Speci men Type: BLOOD SPECIMEN Ordering Facility: [facility] Address: [address] [place] [address] Performed By: #### 3 3762-6, 80612-3 #### [facility] CLIA [id number] [address] [place] Creatinine and Glomerular filtration rate.predicted panel (S/P/Bld) 115 mL/min/1.73m??? Normal >=60 [facility] Comment on above: Order Comment: Meng blancas Type: BLOOD SPECIMEN Ordering Facility: [facility] Address: [address] [place] [address] Result Comment: Ingrid mated Glomerular Filtration Rate [...] actual GFR. Performed By: #### 3 3762-6, 76438-7 #### [facility] CLIA [id number] [address] [place] [address] [place] Glucose [Mass/Vol] 92 mg/dL Normal 74-99 [facility] Comment on above: Order Comment: Meng blancas Type: BLOOD SPECIMEN Ordering Facility: [facility] Address: [address] [place] [address] Result Comment: The [place] Diabetes Association (ADA) provides guidance for cutoff [...] Standards of Medical Care in Diabetes 2016, [place] Diabetes Association. Diabetes Care. 2016.39(Suppl 1). Performed By: #### 3 3762-6, 72228-0 #### [facility] CLIA [id number] [address] [place] [address] [place] Potassium [Moles/Vol] 4.4 mmol/L Normal 3.7-5.1 [facility] Comment on above: Order Comment: Meng blancas Type: BLOOD SPECIMEN Ordering Facility: [facility] Address: [address] [place] [id number] Performed By: #### 3 3762-6, 48109-1 #### [facility] CLIA [id number] [address] STATES [facility] Sodium [Moles/Vol] 136 mmol/L Normal 136-144 [facility] Comment on above: Order Comment: Speci men Type: BLOOD SPECIMEN Ordering Facility: [facility] Address: [address] [place] [address] Performed By: #### 3 3762-6, 87572-2 #### [facility] CLIA [id number] [address] [place] Urea nitrogen [Mass/Vol] 15 mg/dL Normal 9-24 [facility] Comment on above: Order Comment: Speci men Type: BLOOD SPECIMEN Ordering Facility: [facility] Address: [address] [place] [address] Performed By: #### 3 3762-6, 47095-6 #### [facility] CLIA [id number] [address] [place] CBC panel Auto (Bld)on 11-19 Erythrocyte distribution width (RBC) [Ratio] 12.5 % Normal 11.5-15.0 [facility] Comment on above: Order Comment: Speci men Type: BLOOD SPECIMEN Ordering Facility: [facility] Address: [address] [place] [address] Performed By: #### 3 3762-6, 27051-7 #### [facility] CLIA [id number] [address] [place] Hematocrit (Bld) [Volume fraction] 40.5 % Normal 39.0-51.0 [facility] Comment on above: Order Comment: Speci men Type: BLOOD SPECIMEN Ordering Facility: [facility] Address: [address] [place] [address] Performed By: #### 3 3762-6, 56985-9 #### [facility] CLIA [id number] [address] [place] Hemoglobin (Bld) [Mass/Vol] 13.0 g/dL Normal 13.0-17.0 [facility] Comment on above: Order Comment: Speci men Type: BLOOD SPECIMEN Ordering Facility: [facility] Address: [address] [place] [address] Performed By: #### 3 3762-6, 77881-4 #### [facility] CLIA [id number] [address] MCH (RBC) [Entitic mass] 30.3 pg Normal 26.0-34.0 [facility] Comment on above: Order Comment: Speci men Type: BLOOD SPECIMEN Ordering Facility: [facility] Address: [address] [place] [address] Performed By: #### 3 3762-6, 86959-7 #### [facility] CLIA [id number] [address] MCHC (RBC) [Mass/Vol] 32.1 g/dL Normal 30.5-36.0 [facility] Comment on above: Order Comment: Speci men Type: BLOOD SPECIMEN Ordering Facility: [facility] Address: [address] [place] [address] Performed By: #### 3 3762-6, 06129-5 #### [facility] CLIA [id number] [address] MCV (RBC) [Entitic vol] 94.4 fL Normal 80.0-100.0 [facility] Comment on above: Order Comment: Speci men Type: BLOOD SPECIMEN Ordering Facility: [facility] Address: [address] [place] [address] Performed By: #### 3 3762-6, 84809-3 #### [facility] CLIA [id number] [address] Nucleated RBC (Bld) [#/Vol] 10*3/uL Normal <0.01 [facility] Comment on above: Order Comment: Speci men Type: BLOOD SPECIMEN Ordering Facility: [facility] Address: [address] [place], [place] [address] Performed By: #### 3 3762-6, 13857-3 #### [facility] CLIA [id number] [address] [place] Platelet mean volume (Bld) [Entitic vol] 9.9 fL Normal 9.0-12.7 [facility] Comment on above: Order Comment: Speci men Type: BLOOD SPECIMEN Ordering Facility: [facility] Address: [address] [place] [address] Performed By: #### 3 3762-6, 78120-2 #### [facility] CLIA [id number] [address] [place] Platelets (Bld) [#/Vol] 289 10*3/uL Normal 150-400 [facility] Comment on above: Order Comment: Speci men Type: BLOOD SPECIMEN Ordering Facility: [facility] Address: [address] [place] [address] Performed By: #### 3 3762-6, 83747-5 #### [facility] CLIA [id number] [address] [place] RBC (Bld) [#/Vol] 4.29 10*6/uL Normal 4.20-6.00 [facility] Comment on above: Order Comment: Speci men Type: BLOOD SPECIMEN Ordering Facility: [facility] Address: [address] [place] [address] Performed By: #### 3 3762-6, 61242-0 #### [facility] CLIA [id number] [address] [place] WBC (Bld) [#/Vol] 7.58 10*3/uL Normal 3.70-11.00 [facility] Comment on above: Order Comment: Speci men Type: BLOOD SPECIMEN Ordering Facility: [facility] Address: [address] [place] [address] Performed By: #### 3 3762-6, 62631-2 #### [facility] CLIA [id number] [address] OF [facility] CT BRAIN WO IVCONon 11-19-[address] BRAIN WO IVCON * * *Final Report* * * DATE OF EXAM: Nov 19 2023 12:33PM [facility] 0504 - CT BRAIN WO IVCON / [...] orbits and extracranial soft tissues are unremarkable. Bass Viol Repairer (topogram) images: No additional findings. IMPRESSION: No acute intracranial findings. Radio Electrician: PSCB Transcribe Date/Time: Nov 19 2023 12:37P Dictated by : HOPE HENRIQUEZ MD This examination was interpreted and the report reviewed and electronically signed by: HOPE HENRIQUEZ MD on Nov 19 2023 12:38PM EST [id number] Normal [facility] Basic metabolic 2000 panelon 11-18-2023 Anion gap [Moles/Vol] 7 mmol/L Low 9-18 [facility] Comment on above: Order Comment: Meng blancas Type: BLOOD SPECIMEN Ordering Facility: [facility] Address: [address] [place] [address] Performed By: #### 3 3762-6, 66067-4 #### [facility] CLIA [id number] [address] Calcium [Mass/Vol] 8.6 mg/dL Normal 8.5-10.2 [facility] Comment on above: Order Comment: Meng blancas Type: BLOOD SPECIMEN Ordering Facility: [facility] Address: [address] [place] [address] Performed By: #### 3 3762-6, 62696-7 #### [facility] CLIA [id number] [address] [place] Chloride [Moles/Vol] 92 mmol/L Low 97-105 [facility] Comment on above: Order Comment: Speci men Type: BLOOD SPECIMEN Ordering Facility: [facility] Address: [address] [place] [address] Performed By: #### 3 3762-6, 62507-1 #### [facility] CLIA [id number] [address] [place] CO2 [Moles/Vol] 35 mmol/L High 22-30 [facility] Comment on above: Order Comment: Speci men Type: BLOOD SPECIMEN Ordering Facility: [facility] Address: [address] [place] [address] Performed By: #### 3 3762-6, 49063-3 #### [facility] CLIA [id number] [address] [place] Creatinine [Mass/Vol] 0.57 mg/dL Low 0.73-1.22 [facility] Comment on above: Order Comment: Speci men Type: BLOOD SPECIMEN Ordering Facility: [facility] Address: [address] [place] [address] Performed By: #### 3 3762-6, 73372-1 #### [facility] CLIA [id number] [address] Creatinine and Glomerular filtration rate.predicted panel (S/P/Bld) 118 mL/min/1.73m??? Normal >=60 [facility] [facility] Comment [facility]: Order Comment: Speci men Type: BLOOD SPECIMEN Ordering Facility: [facility] Address: [address] [place] [address] Result Comment: Ingrid mated Glomerular Filtration Rate [...] actual GFR. Performed By: #### 3 3762-6, 18730-2 #### [facility] CLIA [id number] 1 [place] [address] [place] Glucose [Mass/Vol] 101 mg/dL High 74-99 [facility] Comment on above: Order Comment: Meng blancas Type: BLOOD SPECIMEN Ordering Facility: [facility] Address: [address] [place] [address] Result Comment: The [place] Diabetes Association (ADA) provides guidance for cutoff [...] Standards of Medical Care in Diabetes 2016, [employer]. Diabetes Care. 2016.39(Suppl 1). Performed By: #### 3 3762-6, 31828-0 #### [facility] CLIA [id number] [address] [place] [address] [place] Potassium [Moles/Vol] 4.3 mmol/L Normal 3.7-5.1 [facility] Comment on above: Order Comment: Meng blancas Type: BLOOD SPECIMEN Ordering Facility: [facility] Address: [address] [place] [address] Performed By: #### 3 3762-6, 61072-4 #### [facility] CLIA [id number] [address] [place] [address] [place] Sodium [Moles/Vol] 134 mmol/L Low 136-144 [facility] Comment on above: Order Comment: Meng blancas Type: BLOOD SPECIMEN Ordering Facility: [facility] Address: [address] [place] [address] Performed By: #### 3 3762-6, 63104-5 #### [facility] CLIA [id number] [address] [place] [facility] Urea nitrogen [Mass/Vol] 17 mg/dL Normal 9-24 [facility] Comment on above: Order Comment: Speci men Type: BLOOD SPECIMEN Ordering Facility: [facility] Address: [address] [place] [address] Performed By: #### 3 3762-6, 78518-8 #### [facility] CLIA [id number] [address] STATES OF [facility] CBC panel Auto (Bld)on 11-18 Erythrocyte distribution width (RBC) [Ratio] 12.6 % Normal 11.5-15.0 [facility] Comment on above: Order Comment: Speci men Type: BLOOD SPECIMEN Ordering Facility: [facility] Address: [address] [place] [address] Performed By: #### 3 3762-6, 44645-1 #### [facility] CLIA [id number] [address] OF [facility] Hematocrit (Bld) [Volume fraction] 42.0 % Normal 39.0-51.0 [facility] Comment on above: Order Comment: Speci men Type: BLOOD SPECIMEN Ordering Facility: [facility] Address: [address] [place] [address] Performed By: #### 3 3762-6, 83162-1 #### [facility] CLIA [id number] [address] [place] Hemoglobin (Bld) [Mass/Vol] 13.7 g/dL Normal 13.0-17.0 [facility] Comment on above: Order Comment: Speci men Type: BLOOD SPECIMEN Ordering Facility: [facility] Address: [address] [place] [address] Performed By: #### 3 3762-6, 96070-2 #### [facility] CLIA [id number] [address] MCH (RBC) [Entitic mass] 31.0 pg Normal 26.0-34.0 [facility] Comment on above: Order Comment: Speci men Type: BLOOD SPECIMEN Ordering Facility: [facility] Address: [address] [place] [address] Performed By: #### 3 3762-6, 86116-5 #### [facility] CLIA [id number] [address] MCHC (RBC) [Mass/Vol] 32.6 g/dL Normal 30.5-36.0 [facility] Comment on above: Order Comment: Speci men Type: BLOOD SPECIMEN Ordering Facility: [facility] Address: [address] [place] [address] Performed By: #### 3 3762-6, 27956-3 #### [facility] CLIA [id number] [address] MCV (RBC) [Entitic vol] 95.0 fL Normal 80.0-100.0 [facility] Comment on above: Order Comment: Speci men Type: BLOOD SPECIMEN Ordering Facility: [facility] Address: [address] [place] [address] Performed By: #### 3 3762-6, 03132-5 #### [facility] CLIA [id number] [address] Nucleated RBC (Bld) [#/Vol] 10*3/uL Normal <0.01 [facility] Comment on above: Order Comment: Speci men Type: BLOOD SPECIMEN Ordering Facility: [facility] Address: [address] [place] [address] Performed By: #### 3 3762-6, 01118-4 #### [facility] CLIA [id number] [address] Platelet mean volume (Bld) [Entitic vol] 9.9 fL Normal 9.0-12.7 [facility] Comment on above: Order Comment: Speci men Type: BLOOD SPECIMEN Ordering Facility: [facility] Address: [address] [place] [address] Performed By: #### 3 3762-6, 07456-2 #### [facility] CLIA [id number] [address] Platelets (Bld) [#/Vol] 254 10*3/uL Normal 150-400 [facility] Comment on above: Order Comment: Speci men Type: BLOOD SPECIMEN Ordering Facility: [facility] Address: [address] [place] [address] Performed By: #### 3 3762-6, 52916-2 #### [facility] CLIA [id number] [address] RBC (Bld) [#/Vol] 4.42 10*6/uL Normal 4.20-6.00 [facility] Comment on above: Order Comment: Speci men Type: BLOOD SPECIMEN Ordering Facility: [facility] Address: [address] [place] [address] Performed By: #### 3 3762-6, 37255-0 #### [facility] CLIA [id number] [address] WBC (Bld) [#/Vol] 11.04 10*3/uL High 3.70-11.00 [facility] Comment on above: Order Comment: Speci men Type: BLOOD SPECIMEN Ordering Facility: [facility] Address: [address] [place] [address] Performed By: #### 3 3762-6, 83610-6 #### [facility] CLIA [id number] [address] [place] Basic metabolic 2000 panelon 11-17-2023 Anion gap [Moles/Vol] 2 mmol/L Low 9-18 [facility] Comment on above: Order Comment: Speci men Type: BLOOD SPECIMENOrdering Facility: [facility] Address: [address] [place] [address] Performed By: #### 2 4321-2 ####[facility] [id number] [place] [address] [place] Calcium [Mass/Vol] 8.8 mg/dL Normal 8.5-10.2 [facility] Comment on above: Order Comment: Speci men Type: BLOOD SPECIMENOrdering Facility: [facility] Address: [address] [place] [address] Performed By: #### 2 4321-2 ####[facility] [id number] [place] [address] [place] Chloride [Moles/Vol] 89 mmol/L Low 97-105 [facility] Comment on above: Order Comment: Speci men Type: BLOOD SPECIMENOrdering Facility: [facility] Address: [address] [place] [address] Performed By: #### 2 4321-2 ####[facility] [id number] [address] [place] CO2 [Moles/Vol] 43 mmol/L High 22-30 [facility] Comment on above: Order Comment: Speci men Type: BLOOD SPECIMENOrdering Facility: [facility] Address: [address] [place] [address] Performed By: #### 2 4321-2 ####[facility] [id number] [address] [place] Creatinine [Mass/Vol] 0.62 mg/dL Low 0.73-1.22 [facility] Comment on above: Order Comment: Speci men Type: BLOOD SPECIMENOrdering Facility: [facility] Address: [address] [place] [address] Performed By: #### 2 4321-2 ####[facility]IA [id number] [address] [place] Creatinine and Glomerular filtration rate.predicted panel (S/P/Bld) 115 mL/min/1.73m??? Normal >=60 [facility] Comment on above: Order Comment: Speci men Type: BLOOD SPECIMENOrdering Facility: [facility] Address: [address] [place] [address] Result Comment: Ingrid mated Glomerular Filtration Rate [...] actual GFR. Performed By: #### 2 4321-2 ####[facility]IA [id number] [place] [address] [place] Glucose [Mass/Vol] 99 mg/dL Normal 74-99 [facility] Comment on above: Order Comment: Meng blancas Type: BLOOD SPECIMENOrdering Facility: [facility] Address: [address] [place] [address] Result Comment: The [place] Diabetes Association (ADA) provides guidance for cutoff [...] Standards of Medical Care in Diabetes 2016, [place] Diabetes Association. Diabetes Care. 2016.39(Suppl 1). Performed By: #### 2 4321-2 ####[facility]IA [id number] [place] [id number] [place] Potassium [Moles/Vol] 4.0 mmol/L Normal 3.7-5.1 [facility] Comment on above: Order Comment: Meng blancas Type: BLOOD SPECIMENOrdering Facility: [facility] Address: [address] [place] [id number] Performed By: #### 2 4321-2 ####[facility]ORYCLIA [id number] [place] [address] [place] Sodium [Moles/Vol] 134 mmol/L Low 136-144 [facility] Comment on above: Order Comment: Speci men Type: BLOOD SPECIMENOrdering Facility: [facility] Address: [address] [place] [address] Performed By: #### 2 4321-2 ####[facility] [id number] [address] [facility] Urea nitrogen [Mass/Vol] 16 mg/dL Normal 9-24 [facility] Comment on above: Order Comment: Speci men Type: BLOOD SPECIMENOrdering Facility: [facility] Address: [address] [place] [address] Performed By: #### 2 4321-2 ####[facility]ORYCLIA [id number] [address] OF [facility] CBC panel Auto (Bld)on 11-17 Erythrocyte distribution width (RBC) [Ratio] 12.2 % Normal 11.5-15.0 [facility] Comment on above: Order Comment: Speci men Type: BLOOD SPECIMEN Ordering Facility: [facility] Address: [address] [place] [address] Performed By: #### 3 3762-6, 56289-7 #### [facility] CLIA [id number] [address] [place] Hematocrit (Bld) [Volume fraction] 40.2 % Normal 39.0-51.0 [facility] Comment on above: Order Comment: Speci men Type: BLOOD SPECIMEN Ordering Facility: [facility] Address: [address] [place] [address] Performed By: #### 3 3762-6, 33681-4 #### [facility] CLIA [id number] [address] [place] Hemoglobin (Bld) [Mass/Vol] 12.8 g/dL Low 13.0-17.0 [facility] Comment on above: Order Comment: Speci men Type: BLOOD SPECIMEN Ordering Facility: [facility] Address: [address] [place] [address] Performed By: #### 3 3762-6, 34636-9 #### [facility] CLIA [id number] [address] MCH (RBC) [Entitic mass] 30.5 pg Normal 26.0-34.0 [facility] Comment on above: Order Comment: Speci men Type: BLOOD SPECIMEN Ordering Facility: [facility] Address: [address] [place] [address] Performed By: #### 3 3762-6, 92281-4 #### [facility] CLIA [id number] [address] MCHC (RBC) [Mass/Vol] 31.8 g/dL Normal 30.5-36.0 [facility] Comment on above: Order Comment: Speci men Type: BLOOD SPECIMEN Ordering Facility: [facility] Address: [address] [place] [address] Performed By: #### 3 376-6, 61550-3 #### [facility] CLIA [id number] [address] MCV (RBC) [Entitic vol] 95.9 fL Normal 80.0-100.0 [facility] Comment on above: Order Comment: Speci men Type: BLOOD SPECIMEN Ordering Facility: [facility] Address: [address] [place] [address] Performed By: #### 3 3762-6, 09776-8 #### [facility] CLIA [id number] [address] Nucleated RBC (Bld) [#/Vol] 10*3/uL Normal <0.01 [facility] Comment on above: Order Comment: Speci men Type: BLOOD SPECIMEN Ordering Facility: [facility] Address: [address] [place] [address] Performed By: #### 3 3762-6, 32363-7 #### [facility] CLIA [id number] [address] Platelet mean volume (Bld) [Entitic vol] 10.0 fL Normal 9.0-12.7 [facility] Comment on above: Order Comment: Speci men Type: BLOOD SPECIMEN Ordering Facility: [facility] Address: [address] [place] [address] Performed By: #### 3 3762-6, 16957-6 #### [facility] CLIA [id number] [address] Platelets (Bld) [#/Vol] 239 10*3/uL Normal 150-400 [facility] Comment on above: Order Comment: Speci men Type: BLOOD SPECIMEN Ordering Facility: [facility] Address: [address] [place] [address] Performed By: #### 3 3762-6, 10646-3 #### [facility] CLIA [id number] [address] RBC (Bld) [#/Vol] 4.19 10*6/uL Low 4.20-6.00 [facility] Comment on above: Order Comment: Speci men Type: BLOOD SPECIMEN Ordering Facility: [facility] Address: [address] [place] [address] Performed By: #### 3 3762-6, 02143-7 #### [facility] CLIA [id number] [address] WBC (Bld) [#/Vol] 9.04 10*3/uL Normal 3.70-11.00 [facility] Comment on above: Order Comment: Speci men Type: BLOOD SPECIMEN Ordering Facility: [facility] Address: [address] [place] [address] Performed By: #### 3 3762-6, 62226-0 #### [facility] CLIA [id number] [address] CNPNon 11-17-2023 VANESSAN Telephone (NOAM) YESSIJAVIER ([id number]) 1970 M Date Time Provider Department 11/17/23 DEANNA FLORES During your visit today, we recorded the following information about you: Deanna Flores APRN.BLOWER ROOM ATTENDANT 11/17/2023 10:[address] Cristina, Please sign the orders for Javier Dickson (CXR for resolution PNA and PFTs for baseline spirometry) The patient will also need a follow up with our office afterwards. Thank you! Deanna Flores APRN.BLOWER ROOM ATTENDANT November 17, 2023 10:16 AM Allergies As of Date: 11/17/2023 (No Known Allergies) Date Reviewed: 11/17/2023 Reviewed by: Deanna Flores APRN.BLOWER ROOM ATTENDANT - Fully Assessed Reason for Visit: Orders [681] Primary Visit Diagnosis:Chronic obstructive pulmonary disease, unspecified COPD type (HCC) [J44.9] Order(s):XR CHEST 2V FRONTAL/LAT [6163381] Order #: [id number] FUTURE SPIROMETRY BASELINE ONLY [5029349] Order #: [id number] FUTURE LUNG DIFFUSION CAPACITY (DLCO) [7385091] Order #: [id number] FUTURE LUNG VOLUMES [8058977] Order #: [id number] FUTURE Prescriptions as of 11/17/2023 - albuterol [...] Status:Closed by BETSY CRISTINA on 11/17/23 Normal [facility] NURSING PROGon 11-17-2023 NURSING PROG HNO ID: [id number] Author: ELVIS PALMER, RN Service: Nursing Author Type: Registered Nurse Type: Nursing Progress Note Filed: 11/17/2023 12:27 Note Text: Other: Destat study: Pts O2 dropped to 85% on RA at rest. Pts O2 recovered to 95% on 2L while at rest. Normal [facility] THERAPY NTon 11-17-2023 THERAPY NT HNO ID: [id number] Author: MAIKEL RAMOS, ONUR Service: Respiratory Therapy [...] is willing to try Pulmonary Rehab. Normal [facility] NURSING PROGon 11-16-2023 NURSING PROG HNO ID: [id number] Author: MONTSERRAT PLUMMER RN Service: Nursing Author Type: Registered Nurse Type: Nursing Progress Note Filed: 11/16/2023 09:51 Note Text: Transfer Note: PATIENT NAME: Javier Dickson Patient Location: [place] [address] [address] Room: [place] [address] Patient transferred into room/unit 4220 in stable condition. Actions taken: Report given/called to Lisa SPAIN. Normal [facility] XR CHEST 1V FRONTALon 2023 XR CHEST [...] 11/13/2023 RESULT: Lines, tubes, and devices: Overlying cardiac technician leads. Lungs and pleura: Changes in the lungs consistent with emphysema. Improving peribronchial densities in the right lower lobe. Cardiomediastinal silhouette: Normal cardiomediastinal silhouette. Other: No significant additional findings. IMPRESSION: Improving peribronchial infiltrates right lower lung. Changes of emphysema. Radio Electrician: ROLANDO Transcribe Date/Time: Nov 16 2023 7:02A Dictated by : PAULA MICHAELS MD This examination was interpreted and the report reviewed and electronically signed by: PAULA MICHAELS MD on Nov 16 2023 7:05AM EST [id number] Normal [facility] CBC W Auto Differential pane l (Bld)on 11-15-2023 Basophils (Bld) [#/Vol] 10*3/uL Normal <0.11 [facility] Comment on above: Order Comment: Speci men Type: BLOOD SPECIMEN Ordering Facility: [facility] Address: [address] [place] [address] Performed By: #### L [id number] #### [facility] CLIA [id number] [address] [place] Basophils/100 WBC (Bld) 0.1 % Normal [facility] Comment on above: Order Comment: Speci men Type: BLOOD SPECIMEN Ordering Facility: [facility] Address: [address] [place] [address] Performed By: #### L [id number] #### [facility] CLIA [id number] [address] [place] Differential cell count method Nom (Bld) Auto Normal [facility] Comment on above: Order Comment: Speci men Type: BLOOD SPECIMEN Ordering Facility: [facility] Address: [address] [place] [address] Performed By: #### L [id number] #### [facility] CLIA [id number] [address] [place] [address] [place] Eosinophils (Bld) [#/Vol] 10*3/uL Normal <0.46 [facility] Comment on above: Order Comment: Speci men Type: BLOOD SPECIMEN Ordering Facility: [facility] Address: [address] [place] [address] Performed By: #### L [id number] #### [facility] CLIA [id number] [address] [place] [address] [place] Eosinophils/100 WBC (Bld) 0.0 % Normal [facility] Comment on above: Order Comment: Speci men Type: BLOOD SPECIMEN Ordering Facility: [facility] Address: [address] [place] [address] Performed By: #### L [id number] #### [facility] CLIA [id number] [address] STATES OF [facility] Erythrocyte distribution width (RBC) [Ratio] 12.4 % Normal 11.5-15.0 [facility] Comment on above: Order Comment: Speci men Type: BLOOD SPECIMEN Ordering Facility: [facility] Address: [address] [place] [address] Performed By: #### L [id number] #### [facility] CLIA [id number] [address] [place] Hematocrit (Bld) [Volume fraction] 41.6 % Normal 39.0-51.0 [facility] Comment on above: Order Comment: Speci men Type: BLOOD SPECIMEN Ordering Facility: [facility] Address: [address] [place] [address] Performed By: #### L [id number] #### [facility] CLIA [id number] [address] [place] Hemoglobin (Bld) [Mass/Vol] 13.3 g/dL Normal 13.0-17.0 [facility] Comment on above: Order Comment: Speci men Type: BLOOD SPECIMEN Ordering Facility: [facility] Address: [address] [place] [address] Performed By: #### L [id number] #### [facility] CLIA [id number] [address] [place] Immature granulocytes (Bld) [#/Vol] 0.05 10*3/uL Normal <0.10 [facility] Comment on above: Order Comment: Speci men Type: BLOOD SPECIMEN Ordering Facility: [facility] Address: [address] [place] [address] Performed By: #### L [id number] #### [facility] CLIA [id number] [address] Immature granulocytes/100 WBC (Bld) 0.4 % Normal [facility] Comment on above: Order Comment: Speci men Type: BLOOD SPECIMEN Ordering Facility: [facility] Address: [address] [place] [address] Performed By: #### L [id number] #### [facility] CLIA [id number] [address] OF [facility] Lymphocytes (Bld) [#/Vol] 1.12 10*3/uL Normal 1.00-4.00 [facility] Comment on above: Order Comment: Speci men Type: BLOOD SPECIMEN Ordering Facility: [facility] Address: [address] [place] [address] Performed By: #### L [id number] #### [facility] CLIA [id number] [address] Lymphocytes/100 WBC (Bld) 9.3 % Normal [facility] Comment on above: Order Comment: Speci men Type: BLOOD SPECIMEN Ordering Facility: [facility] Address: [address] [place] [address] Performed By: #### L [id number] #### [facility] CLIA [id number] [address] MCH (RBC) [Entitic mass] 31.2 pg Normal 26.0-34.0 [facility] Comment on above: Order Comment: Speci men Type: BLOOD SPECIMEN Ordering Facility: [facility] Address: [address] [place] [address] Performed By: #### L [id number] #### [facility] CLIA [id number] [address] MCHC (RBC) [Mass/Vol] 32.0 g/dL Normal 30.5-36.0 [facility] Comment on above: Order Comment: Speci men Type: BLOOD SPECIMEN Ordering Facility: [facility] Address: [address] [place] [address] Performed By: #### L [id number] #### [facility] CLIA [id number] [address] [place] MCV (RBC) [Entitic vol] 97.7 fL Normal 80.0-100.0 [facility] Comment on above: Order Comment: Speci men Type: BLOOD SPECIMEN Ordering Facility: [facility] Address: [address] [place] [address] Performed By: #### L [id number] #### [facility] CLIA [id number] [address] [place] Monocytes (Bld) [#/Vol] 0.95 10*3/uL High <0.87 [facility] Comment on above: Order Comment: Speci men Type: BLOOD SPECIMEN Ordering Facility: [facility] Address: [address] [place] [address] Performed By: #### L [id number] #### [facility] CLIA [id number] 1 [address] Monocytes/100 WBC (Bld) 7.9 % Normal [facility] Comment on above: Order Comment: Speci men Type: BLOOD SPECIMEN Ordering Facility: [facility] Address: [address] [place] [address] Performed By: #### L [id number] #### [facility] CLIA [id number] [address] [place] Neutrophils (Bld) [#/Vol] 9.87 10*3/uL High 1.45-7.50 [facility] Comment on above: Order Comment: Speci men Type: BLOOD SPECIMEN Ordering Facility: [facility] Address: [address] [place] [address] Performed By: #### L [id number] #### [facility] CLIA [id number] [address] [place] Neutrophils/100 WBC (Bld) 82.3 % Normal [facility] Comment on above: Order Comment: Speci men Type: BLOOD SPECIMEN Ordering Facility: [facility] Address: [address] [place] [address] Performed By: #### L [id number] #### [facility] CLIA [id number] [address] [place] Nucleated RBC (Bld) [#/Vol] 10*3/uL Normal <0.01 [facility] Comment on above: Order Comment: Speci men Type: BLOOD SPECIMEN Ordering Facility: [facility] Address: [address] [place] [address] Performed By: #### L [id number] #### [facility] CLIA [id number] [address] [place] Nucleated RBC/100 WBC (Bld) [Ratio] 0.0 /100 WBC Normal [facility] Comment on above: Order Comment: Speci men Type: BLOOD SPECIMEN Ordering Facility: [facility] Address: [address] [place] [address] Performed By: #### L [id number] #### [facility] CLIA [id number] [address] [place] Platelet mean volume (Bld) [Entitic vol] 10.3 fL Normal 9.0-12.7 [facility] Comment on above: Order Comment: Speci men Type: BLOOD SPECIMEN Ordering Facility: [facility] Address: [address] [place] [address] Performed By: #### L [id number] #### [facility] CLIA [id number] [address] [place] Platelets (Bld) [#/Vol] 245 10*3/uL Normal 150-400 [facility] Comment on above: Order Comment: Speci men Type: BLOOD SPECIMEN Ordering Facility: [facility] Address: [address] [place] [address] Performed By: #### L [id number] #### [facility] CLIA [id number] [address] [place] RBC (Bld) [#/Vol] 4.26 10*6/uL Normal 4.20-6.00 [facility] Comment on above: Order Comment: Speci men Type: BLOOD SPECIMEN Ordering Facility: [facility] Address: [address] [place] [address] Performed By: #### L [id number] #### [facility] CLIA [id number] [address] WBC (Bld) [#/Vol] 12.00 10*3/uL High 3.70-11.00 [facility] Comment on above: Order Comment: Speci men Type: BLOOD SPECIMEN Ordering Facility: [facility] Address: [address] [place] [address] Performed By: #### L [id number] #### [facility] CLIA [id number] [address] Comprehensive metabolic 2000 panelon 11-15-2023 Albumin [Mass/Vol] 3.6 g/dL Low 3.9-4.9 [facility] Comment on above: Order Comment: Speci men Type: BLOOD SPECIMEN Ordering Facility: [facility] Address: [address] [place] [address] Performed By: #### 3 3762-6, 07149-6 #### [facility] CLIA [id number] [address] ALP [Catalytic activity/Vol] 76 U/L Normal 38-113 [facility] Comment on above: Order Comment: Speci men Type: BLOOD SPECIMEN Ordering Facility: [facility] Address: [address] [place] [address] Performed By: #### 3 3762-6, 50674-4 #### [facility] CLIA [id number] [address] ALT With P-5'-P [Catalytic activity/Vol] 24 U/L Normal 10-54 [facility] Comment on above: Order Comment: Speci men Type: BLOOD SPECIMEN Ordering Facility: [facility] Address: [address] [place] [address] Performed By: #### 3 3762-6, 72160-3 #### [facility] CLIA [id number] [address] OF [facility] Anion gap [Moles/Vol] 4 mmol/L Low 9-18 [facility] Comment on above: Order Comment: Speci men Type: BLOOD SPECIMEN Ordering Facility: [facility] Address: [address] [place] [address] Performed By: #### 3 3762-6, 89132-4 #### [facility] CLIA [id number] [address] [place] AST With P-5'-P [Catalytic activity/Vol] 16 U/L Normal 14-40 [facility] Comment on above: Order Comment: Speci men Type: BLOOD SPECIMEN Ordering Facility: [facility] Address: [address] [place] [address] Performed By: #### 3 3762-6, 21229-8 #### [facility] CLIA [id number] [address] STATES OF [facility] Bilirubin [Mass/Vol] 0.2 mg/dL Normal 0.2-1.3 [facility] Comment on above: Order Comment: Speci men Type: BLOOD SPECIMEN Ordering Facility: [facility] Address: [address] [place] [address] Performed By: #### 3 3762-6, 97664-0 #### [facility] CLIA [id number] [address] OF [facility] Calcium [Mass/Vol] 8.7 mg/dL Normal 8.5-10.2 [facility] Comment on above: Order Comment: Speci men Type: BLOOD SPECIMEN Ordering Facility: [facility] Address: [address] [place] [address] Performed By: #### 3 3762-6, 22480-6 #### [facility] CLIA [id number] [address] [place] Chloride [Moles/Vol] 91 mmol/L Low 97-105 [facility] Comment on above: Order Comment: Speci men Type: BLOOD SPECIMEN Ordering Facility: [facility] Address: [address] [place] [address] Performed By: #### 3 3762-6, 04387-5 #### [facility] CLIA [id number] 1 [place] [address] [place] CO2 [Moles/Vol] 41 mmol/L High 22-30 [facility] Comment on above: Order Comment: Speci men Type: BLOOD SPECIMEN Ordering Facility: [facility] Address: [address] [place] [address] Performed By: #### 3 3762-6, 50040-7 #### [facility] CLIA [id number] [address] [place] Creatinine [Mass/Vol] 0.68 mg/dL Low 0.73-1.22 [facility] Comment on above: Order Comment: Speci men Type: BLOOD SPECIMEN Ordering Facility: [facility] Address: [address] [place] [address] Performed By: #### 3 3762-6, 52510-4 #### [facility] CLIA [id number] [address] Creatinine and Glomerular filtration rate.predicted panel (S/P/Bld) 112 mL/min/1.73m??? Normal >=60 [facility] Comment on above: Order Comment: Speci men Type: BLOOD SPECIMEN Ordering Facility: [facility] Address: [address] [place] [address] Result Comment: Ingrid mated Glomerular Filtration Rate [...] actual GFR. Performed By: #### 3 3762-6, 01141-8 #### [facility] CLIA [id number] [address] [place] Glucose [Mass/Vol] 105 mg/dL High 74-99 [facility] Comment on above: Order Comment: Speci men Type: BLOOD SPECIMEN Ordering Facility: [facility] Address: [address] [place] [address] Result Comment: The [place] Diabetes Association (ADA) provides guidance for cutoff [...] Standards of Medical Care in Diabetes 2016, [place] [employer]. Diabetes Care. 2016.39(Suppl 1). Performed By: #### 3 3762-6, 39101-0 #### [employer] [facility] CLIA [id number] 1 [place] [address] [place] Potassium [Moles/Vol] 4.2 mmol/L Normal 3.7-5.1 [facility] Comment on above: Order Comment: Meng blancas Type: BLOOD SPECIMEN Ordering Facility: [facility] Address: [address] [place] [address] Performed By: #### 3 3762-6, 97176-7 #### [employer] [facility] CLIA [id number] 1 [place] [address] [place] Protein [Mass/Vol] 5.9 g/dL Low 6.3-8.0 [facility] Comment on above: Order Comment: Meng blancas Type: BLOOD SPECIMEN Ordering Facility: [facility] Address: [address] [place] [address] Performed By: #### 3 3762-6, 51019-9 #### [employer] [facility] CLIA [id number] 1 [place] [address] [place] Sodium [Moles/Vol] 136 mmol/L Normal 136-144 [facility] Comment on above: Order Comment: Meng blancas Type: BLOOD SPECIMEN Ordering Facility: [facility] Address: [address] [place] [address] Performed By: #### 3 3762-6, 62935-6 #### [facility] CLIA [id number] 1 [place] [id number] [place] Urea nitrogen [Mass/Vol] 29 mg/dL High 9-24 [facility] Comment on above: Order Comment: Speci men Type: BLOOD SPECIMEN Ordering Facility: [facility] Address: [facility] [place] [address] Performed By: #### 3 3762-6, 69058-2 #### [facility] CLIA [id number] [address] [place] [id number] [place] ALLIED HEALTHon 11-14-2023 ALLIED HEALTH HNO ID: [id number] Author: Ziyad Keys II Service: Infection Prevention Author Type: ? Type: Allied Health Filed: 11/14/2023 9:52 AM Note Text: ISOLATION NOTE Admission Date: 11/13/2023 Type of Isolation Recommended: Contact Precautions ([place] Isolation Sign) Indication: Respiratory syncytial virus (RSV) Date Isolation Initiated: 11/14/2023 Anticipated Duration of Isolation: Duration of illness Type and Date of Positive Test(s): Positive upper respiratory tract swab collected 11/13/2023 SIGNATURE: Ziyad Keys II PATIENT NAME: Javier Dickson DATE: November 14, 2023 TIME: 9:50 AM PAGER/CONTACT #: Infection Prevention, [phone] Infection Prevention after hours/weekend pager: [phone] Normal [facility] CASE MANAGEMon 11-14-2023 CASE MANAGEM HNO ID: [id number] Author: Karla Gonzales LSW Service: ? Author Type: Optical Instrument Assembler Type: Care Mgt Progress Note Filed: 11/14/2023 [...] 14, 2023 TIME: 2:03 PM PAGER/CONTACT #: [phone] Normal [facility] CASE MANAGEM HNO ID: [id number] Author: Karla Gonzales LSW Service: ? Author Type: Optical Instrument Assembler Type: Care Mgt Progress Note Filed: 11/14/2023 [...] 14, 2023 TIME: 1:57 PM PAGER/CONTACT #: [phone] Normal [facility] CBC W Auto Differential pane l (Bld)on 11-14-2023 Basophils (Bld) [#/Vol] 10*3/uL Normal <0.11 [facility] Comment on above: Order Comment: Speci men Type: BLOOD SPECIMEN Ordering Facility: [facility] Address: [address] [place] [address] Performed By: #### 3 3762-6, 78450-4 #### [facility] CLIA [id number] [address] [place] Basophils/100 WBC (Bld) 0.1 % Normal [facility] Comment on above: Order Comment: Speci men Type: BLOOD SPECIMEN Ordering Facility: [facility] Address: [address] [place] [address] Performed By: #### 3 3762-6, 23623-7 #### [facility] CLIA [id number] [address] [place] [address] Differential cell count method Nom (Bld) Auto Normal [facility] Comment on above: Order Comment: Speci men Type: BLOOD SPECIMEN Ordering Facility: [facility] Address: [address] [place] [address] Performed By: #### 3 376-6, 56887-6 #### [facility] CLIA [id number] [address] [place] Eosinophils (Bld) [#/Vol] 10*3/uL Normal <0.46 [facility] Comment on above: Order Comment: Speci men Type: BLOOD SPECIMEN Ordering Facility: [facility] Address: [address] [place] [address] Performed By: #### 3 3766, 23112-6 #### [facility] CLIA [id number] [address] Eosinophils/100 WBC (Bld) 0.1 % Normal [facility] Comment on above: Order Comment: Speci men Type: BLOOD SPECIMEN Ordering Facility: [facility] Address: [address] [place] [address] Performed By: #### 3 3766, 91512-1 #### [facility] CLIA [id number] [address] Erythrocyte distribution width (RBC) [Ratio] 12.7 % Normal 11.5-15.0 [facility] Comment on above: Order Comment: Speci men Type: BLOOD SPECIMEN Ordering Facility: [facility] Address: [address] [place] [address] Performed By: #### 3 3762-6, 13612-9 #### [facility] CLIA [id number] [address] Hematocrit (Bld) [Volume fraction] 45.7 % Normal 39.0-51.0 [facility] Comment on above: Order Comment: Speci men Type: BLOOD SPECIMEN Ordering Facility: [facility] Address: [address] [place] [address] Performed By: #### 3 376-6, 55913-5 #### [facility] CLIA [id number] [address] [place] Hemoglobin (Bld) [Mass/Vol] 14.5 g/dL Normal 13.0-17.0 [facility] Comment on above: Order Comment: Speci men Type: BLOOD SPECIMEN Ordering Facility: [facility] Address: [address] [place] [address] Performed By: #### 3 3762-6, 80047-8 #### [facility] CLIA [id number] [address] [place] Immature granulocytes (Bld) [#/Vol] 0.07 10*3/uL Normal <0.10 [facility] Comment on above: Order Comment: Speci men Type: BLOOD SPECIMEN Ordering Facility: [facility] Address: [address] [place] [address] Performed By: #### 3 376-6, 37002-5 #### [facility] CLIA [id number] [address] [place] Immature granulocytes/100 WBC (Bld) 0.4 % Normal [facility] Comment on above: Order Comment: Speci men Type: BLOOD SPECIMEN Ordering Facility: [facility] Address: [address] [place] [address] Performed By: #### 3 3762-6, 30399-6 #### [facility] CLIA [id number] [address] [place] [address] [place] Lymphocytes (Bld) [#/Vol] 0.61 10*3/uL Low 1.00-4.00 [facility] Comment on above: Order Comment: Speci men Type: BLOOD SPECIMEN Ordering Facility: [facility] Address: [address] [place] [address] Performed By: #### 3 3762-6, 84075-8 #### [facility] CLIA [id number] [address] [place] Lymphocytes/100 WBC (Bld) 3.9 % Normal [facility] Comment on above: Order Comment: Speci men Type: BLOOD SPECIMEN Ordering Facility: [facility] Address: [address] [place] [address] Performed By: #### 3 3762-6, 35307-4 #### [facility] CLIA [id number] [address] MCH (RBC) [Entitic mass] 30.9 pg Normal 26.0-34.0 [facility] Comment on above: Order Comment: Speci men Type: BLOOD SPECIMEN Ordering Facility: [facility] Address: [address] [place] [address] Performed By: #### 3 3762-6, 51430-8 #### [facility] CLIA [id number] [address] MCHC (RBC) [Mass/Vol] 31.7 g/dL Normal 30.5-36.0 [facility] Comment on above: Order Comment: Speci men Type: BLOOD SPECIMEN Ordering Facility: [facility] Address: [address] [place] [address] Performed By: #### 3 3762-6, 80774-6 #### [facility] CLIA [id number] [address] MCV (RBC) [Entitic vol] 97.4 fL Normal 80.0-100.0 [facility] Comment on above: Order Comment: Speci men Type: BLOOD SPECIMEN Ordering Facility: [facility] Address: [address] [place] [address] Performed By: #### 3 3762-6, 24406-0 #### [facility] CLIA [id number] [address] OF [facility] Monocytes (Bld) [#/Vol] 1.02 10*3/uL High <0.87 [facility] Comment on above: Order Comment: Speci men Type: BLOOD SPECIMEN Ordering Facility: [facility] Address: [address] [place] [address] Performed By: #### 3 3762-6, 29520-7 #### [facility] CLIA [id number] [address] [place] Monocytes/100 WBC (Bld) 6.5 % Normal [facility] Comment on above: Order Comment: Speci men Type: BLOOD SPECIMEN Ordering Facility: [facility] Address: [address] [place] [address] Performed By: #### 3 3762-6, 83675-4 #### [facility] CLIA [id number] [address] [place] Neutrophils (Bld) [#/Vol] 13.90 10*3/uL High 1.45-7.50 [facility] Comment on above: Order Comment: Speci men Type: BLOOD SPECIMEN Ordering Facility: [facility] Address: [address] [place] [address] Performed By: #### 3 3762-6, 35198-1 #### [facility] CLIA [id number] [address] OF [facility] Neutrophils/100 WBC (Bld) 89.0 % Normal [facility] Comment on above: Order Comment: Speci men Type: BLOOD SPECIMEN Ordering Facility: [facility] Address: [address] [place] [address] Performed By: #### 3 3762-6, 92556-9 #### [facility] CLIA [id number] [address] [place] Nucleated RBC (Bld) [#/Vol] 10*3/uL Normal <0.01 [facility] Comment on above: Order Comment: Speci men Type: BLOOD SPECIMEN Ordering Facility: [facility] Address: [address] [place] [address] Performed By: #### 3 3762-6, 10153-8 #### [facility] CLIA [id number] [address] [place] Nucleated RBC/100 WBC (Bld) [Ratio] 0.0 /100 WBC Normal [facility] Comment on above: Order Comment: Speci men Type: BLOOD SPECIMEN Ordering Facility: [facility] Address: [address] [place] [address] Performed By: #### 3 3762-6, 72443-7 #### [facility] CLIA [id number] [address] Platelet mean volume (Bld) [Entitic vol] 10.3 fL Normal 9.0-12.7 [facility] Comment on above: Order Comment: Speci men Type: BLOOD SPECIMEN Ordering Facility: [facility] Address: [address] [place] [address] Performed By: #### 3 3762-6, 44065-0 #### [facility] CLIA [id number] [address] Platelets (Bld) [#/Vol] 223 10*3/uL Normal 150-400 [facility] Comment on above: Order Comment: Speci men Type: BLOOD SPECIMEN Ordering Facility: [facility] Address: [address] [place] [address] Performed By: #### 3 3762-6, 33242-5 #### [facility] CLIA [id number] [address] [place] RBC (Bld) [#/Vol] 4.69 10*6/uL Normal 4.20-6.00 [facility] Comment on above: Order Comment: Speci men Type: BLOOD SPECIMEN Ordering Facility: [facility] Address: [address] [place] [address] Performed By: #### 3 3762-6, 94343-2 #### [facility] CLIA [id number] [address] [place] WBC (Bld) [#/Vol] 15.63 10*3/uL High 3.70-11.00 [facility] Comment on above: Order Comment: Speci men Type: BLOOD SPECIMEN Ordering Facility: [facility] Address: [address] [place] [address] Performed By: #### 3 3762-6, 64929-2 #### [facility] CLIA [id number] [address] STATES OF [facility] CONSULT PROGon 11-14-2023 CONSULT PROG HNO ID: [id number] Author: Jackie Paz RPh Service: Pharmacy Author [...] if there are questions. Jackie Paz RPh [phone] Normal [facility] Comprehensive metabolic 2000 panelon 11-14-2023 Albumin [Mass/Vol] 3.8 g/dL Low 3.9-4.9 [facility] Comment on above: Order Comment: Speci men Type: BLOOD SPECIMENOrdering Facility: [facility] Address: [address] [place] [address] Performed By: #### 2 4323-8 ####[facility] [id number] [address] [place] ALP [Catalytic activity/Vol] 90 U/L Normal 38-113 [facility] Comment on above: Order Comment: Speci men Type: BLOOD SPECIMENOrdering Facility: [facility] Address: [address] [place] [address] Performed By: #### 2 4323-8 ####[facility] [id number] [address] [place] ALT With P-5'-P [Catalytic activity/Vol] 31 U/L Normal 10-54 [facility] Comment on above: Order Comment: Speci men Type: BLOOD SPECIMENOrdering Facility: [facility] Address: [address] [place] [address] Performed By: #### 2 4323-8 ####[facility] [id number] [place] [address] [place] Anion gap [Moles/Vol] 9 mmol/L Normal 9-18 [facility] Comment on above: Order Comment: Speci men Type: BLOOD SPECIMENOrdering Facility: [facility] Address: [address] [place] [address] Performed By: #### 2 4323-8 ####[facility] [id number] [place] [address] [place] AST With P-5'-P [Catalytic activity/Vol] 23 U/L Normal 14-40 [facility] Comment on above: Order Comment: Speci men Type: BLOOD SPECIMENOrdering Facility: [facility] Address: [address] [place] [address] Performed By: #### 2 4323-8 ####[facility] [id number] [place] [address] [place] Bilirubin [Mass/Vol] 0.4 mg/dL Normal 0.2-1.3 [facility] Comment on above: Order Comment: Speci men Type: BLOOD SPECIMENOrdering Facility: [facility] Address: [address] [place] [address] Performed By: #### 2 4323-8 ####[facility] [id number] [address] [place] Calcium [Mass/Vol] 9.0 mg/dL Normal 8.5-10.2 [facility] Comment on above: Order Comment: Speci men Type: BLOOD SPECIMENOrdering Facility: [facility] Address: [address] [place] [address] Performed By: #### 2 4323-8 ####[facility]ATORYCLIA [id number] [place] [address] [place] Chloride [Moles/Vol] 91 mmol/L Low 97-105 [facility] Comment on above: Order Comment: Speci men Type: BLOOD SPECIMENOrdering Facility: [facility] Address: [address] [place] [address] Performed By: #### 2 4323-8 ####[facility]ATORYCLIA [id number] [address] [place] CO2 [Moles/Vol] 34 mmol/L High 22-30 [facility] Comment on above: Order Comment: Speci men Type: BLOOD SPECIMENOrdering Facility: [facility] Address: [address] [place] [address] Performed By: #### 2 4323-8 ####[facility]ORATORYCLIA [id number] [address] STATES OF [facility] Creatinine [Mass/Vol] 1.41 mg/dL High 0.73-1.22 [facility] Comment on above: Order Comment: Speci men Type: BLOOD SPECIMENOrdering Facility: [facility] Address: [address] [place] [address] Performed By: #### 2 4323-8 ####[facility] [id number] [address] Creatinine and Glomerular filtration rate.predicted panel (S/P/Bld) 60 mL/min/1.73m??? Normal >=60 [facility] Comment on above: Order Comment: Speci men Type: BLOOD SPECIMENOrdering Facility: [facility] Address: [address] [place] [address] Result Comment: Ingrid mated Glomerular Filtration Rate [...] actual GFR. Performed By: #### 2 4323-8 ####[facility]ORATORYCLIA [id number] [address] OF [facility] Glucose [Mass/Vol] 113 mg/dL High 74-99 [facility] Comment on above: Order Comment: Speci men Type: BLOOD SPECIMENOrdering Facility: [facility] Address: [address] [place] [address] Result Comment: The [place] Diabetes Association (ADA) provides guidance for cutoff [...] Standards of Medical Care in Diabetes 2016, [place] [employer]. Diabetes Care. 2016.39(Suppl 1). Performed By: #### 2 4323-8 ####[facility]ATORYCLIA [id number] [place] [address] [place] Potassium [Moles/Vol] 4.7 mmol/L Normal 3.7-5.1 [facility] Comment on above: Order Comment: Speci men Type: BLOOD SPECIMENOrdering Facility: [facility] Address: [address] [place] [address] Performed By: #### 2 4323-8 ####[facility]ATORYCLIA [id number] [place] [address] [place] Protein [Mass/Vol] 6.6 g/dL Normal 6.3-8.0 [facility] Comment on above: Order Comment: Speci men Type: BLOOD SPECIMENOrdering Facility: [facility] Address: [address] [place] [address] Performed By: #### 2 4323-8 ####[facility]ATORYCLIA [id number] [place] [address] [place] Sodium [Moles/Vol] 134 mmol/L Low 136-144 [facility] Comment on above: Order Comment: Speci men Type: BLOOD SPECIMENOrdering Facility: [facility] Address: [address] [place] [address] Performed By: #### 2 4323-8 ####[facility]ORATORYCLIA [id number] [place] [address] [place] Urea nitrogen [Mass/Vol] 52 mg/dL High 9-24 [facility] Comment on above: Order Comment: Speci men Type: BLOOD SPECIMENOrdering Facility: [facility] Address: [place] [address] Performed By: #### 2 4323-8 ####[facility]ORATORYCLIA [id number] [place] [address] [place] ECHOon 11-14-2023 Echocardiography Echocardiography Report: Transthoracic Echo [facility] Date of service: 11/14/2023 9:09:04 AM HOSPITAL Ordering physician: JILL SHIN Indication: Initial evaluation of known cardiomyopathy Technologist: Lloyd Schmid [facility] Interpreting physician: Mark Morgan MD PATIENT: Name: [...] * * Final * * * CC [facility] Image : [id number] [id number] Normal [facility] ED NOTEon 11-14-2023 ED NOTE HNO ID: [id number] Author: Nenita Hughes RN Service: Emergency Medicine Author Type: Registered Nurse Type: ED Notes Filed: 11/14/2023 2:18 AM Note Text: Dr Chen notified patient continuing to pull off the BiPAP mask requesting food and water stating "he has not eaten or had anything to drink in days". RT at bedside. Okay per ICU to give patient a couple of ice chips. Normal [facility] Gas and Carbon monoxide pane l (BldV)on 11-14-2023 Base excess Calc (BldV) [Moles/Vol] 7 mmol/L High 0-2 [facility] Comment on above: Order Comment: Speci men Type: VENOUS BLOOD SPECIMEN Ordering Facility: [facility] Address: [address] [place] [address] Performed By: #### 2 4344-4 #### [facility] CLIA [id number] [address] [place] [address] Body temperature 98.6 [degF] Normal [facility] Comment on above: Order Comment: Speci men Type: VENOUS BLOOD SPECIMEN Ordering Facility: [facility] Address: [address] [place] [address] Performed By: #### 2 4344-4 #### [facility] CLIA [id number] [address] [place] [address] OF [facility] Calcium.ionized (BldV) [Mass/Vol] 1.08 mmol/L Normal 1.08-1.30 [facility] Comment on above: Order Comment: Speci men Type: VENOUS BLOOD SPECIMEN Ordering Facility: [facility] Address: [address] [place] [address] Performed By: #### 2 4344-4 #### [facility] CLIA [id number] [address] [place] [address] OF [facility] Calcium.ionized adjusted to pH 7.4 (BldA) [Moles/Vol] 1.03 mmol/L Low 1.08-1.30 [facility] Comment on above: Order Comment: Speci men Type: VENOUS BLOOD SPECIMEN Ordering Facility: [facility] Address: [address] [place] [address] Performed By: #### 2 4344-4 #### [facility] CLIA [id number] [address] [place] Carboxyhemoglobin (BldV) [Mass fraction] 1.7 % Normal 0.0-2.0 [facility] Comment on above: Order Comment: Speci men Type: VENOUS BLOOD SPECIMEN Ordering Facility: [facility] Address: [address] [place] [address] Result Comment: Carb oxyhemoglobin Reference Range for Smokers: 2.0-8.0% Performed By: #### 2 4344-4 #### [facility] CLIA [id number] [address] [place] Chloride [Moles/Vol] 94 mmol/L Low 102-109 [facility] Comment on above: Order Comment: Speci men Type: VENOUS BLOOD SPECIMEN Ordering Facility: [facility] Address: [address] [place] [address] Performed By: #### 2 4344-4 #### [facility] CLIA [id number] [address] [place] CO2 (BldV) [Partial pressure] 72 mm[Hg] High 42-55 [facility] Comment on above: Order Comment: Speci men Type: VENOUS BLOOD SPECIMEN Ordering Facility: [facility] Address: [address] [place] [address] Performed By: #### 2 4344-4 #### [facility] CLIA [id number] [address] [place] FIO2 60 % Normal [facility] Comment on above: Order Comment: Speci men Type: VENOUS BLOOD SPECIMEN Ordering Facility: [facility] Address: [address] [place] [address] Performed By: #### 2 4344-4 #### [facility] CLIA [id number] [address] [place] Glucose [Mass/Vol] 117 mg/dL High 60-105 [facility] Comment on above: Order Comment: Speci men Type: VENOUS BLOOD SPECIMEN Ordering Facility: [facility] Address: [address] [place] [address] Performed By: #### 2 4344-4 #### [facility] CLIA [id number] [address] [place] HCO3 (Bld) [Moles/Vol] 36 mmol/L High 24-28 [facility] Comment on above: Order Comment: Speci men Type: VENOUS BLOOD SPECIMEN Ordering Facility: [facility] Address: [address] [place] [address] Performed By: #### 2 4344-4 #### [facility] CLIA [id number] [address] [place] Hematocrit (Bld) [Volume fraction] 44.1 % Normal 39.0-51.0 [facility] Comment on above: Order Comment: Speci men Type: VENOUS BLOOD SPECIMEN Ordering Facility: [facility] Address: [address] [place] [address] Performed By: #### 2 4344-4 #### [facility] CLIA [id number] [address] [place] Hemoglobin (Bld) [Mass/Vol] 14.4 g/dL Normal 13.0-17.0 [facility] Comment on above: Order Comment: Speci men Type: VENOUS BLOOD SPECIMEN Ordering Facility: [facility] Address: [address] [place] [address] Performed By: #### 2 4344-4 #### [facility] CLIA [id number] [address] [place] Lactate [Moles/Vol] 2.1 mmol/L Normal 0.5-2.2 [facility] Comment on above: Order Comment: Speci men Type: VENOUS BLOOD SPECIMEN Ordering Facility: [facility] Address: [address] [place] [address] Performed By: #### 2 4344-4 #### [facility] CLIA [id number] [address] [place] LITERS 60 Liters/min Normal [facility] Comment on above: Order Comment: Speci men Type: VENOUS BLOOD SPECIMEN Ordering Facility: [facility] Address: [address] [place] [address] Performed By: #### 2 4344-4 #### [facility] CLIA [id number] [address] [place] Methemoglobin (Bld) [Mass fraction] 0.1 % Normal 0.0-1.5 [facility] Comment on above: Order Comment: Speci men Type: VENOUS BLOOD SPECIMEN Ordering Facility: [facility] Address: [address] [place] [address] Performed By: #### 2 4344-4 #### [facility] CLIA [id number] [address] [place] O2 THERAPY Hi-Flow Nasal Cannula-Heated Normal [facility] Comment on above: Order Comment: Speci men Type: VENOUS BLOOD SPECIMEN Ordering Facility: [facility] Address: [address] [place] [address] Performed By: #### 2 4344-4 #### [facility] CLIA [id number] [address] [place] Oxygen (BldV) [Partial pressure] 63 mm[Hg] High 35-45 [facility] Comment on above: Order Comment: Speci men Type: VENOUS BLOOD SPECIMEN Ordering Facility: [facility] Address: [address] [place] [address] Performed By: #### 2 4344-4 #### [facility] CLIA [id number] [address] Oxygen saturation in Venous blood 89 % High 60-85 [facility] Comment on above: Order Comment: Speci men Type: VENOUS BLOOD SPECIMEN Ordering Facility: [facility] Address: [address] [place] [address] Performed By: #### 2 4344-4 #### [facility] CLIA [id number] [address] [place] Oxyhemoglobin (BldV) [Mass fraction] 88 % High 60-85 [facility] Comment on above: Order Comment: Speci men Type: VENOUS BLOOD SPECIMEN Ordering Facility: [facility] Address: [address] [place] [address] Performed By: #### 2 4344-4 #### [facility] CLIA [id number] [address] [place] [address] [place] pH (BldV) 7.32 [pH] Normal 7.32-7.42 [facility] Comment on above: Order Comment: Speci men Type: VENOUS BLOOD SPECIMEN Ordering Facility: [facility] Address: [address] [place] [address] Performed By: #### 2 4344-4 #### [facility] CLIA [id number] [address] [place] Potassium [Moles/Vol] 4.4 mmol/L Normal 3.5-5.0 [facility] Comment on above: Order Comment: Speci men Type: VENOUS BLOOD SPECIMEN Ordering Facility: [facility] Address: [address] [place] [address] Performed By: #### 2 4344-4 #### [facility] CLIA [id number] [address] [place] Sodium [Moles/Vol] 132 mmol/L Low 136-144 [facility] Comment on above: Order Comment: Speci men Type: VENOUS BLOOD SPECIMEN Ordering Facility: [facility] Address: [address] [place] [address] Performed By: #### 2 4344-4 #### [facility] CLIA [id number] [address] [place] [address] [place] Legionella Ag Ur Qlon 2023 Legionella sp Ag Ql (U) Negative Normal Negative [facility] Comment on above: Order Comment: Speci men Type: BLOOD SPECIMEN Ordering Facility: [facility] Address: [address] [place] [address] Result Comment: Pres umptive negative for L. [...] the test. Performed By: #### 3 3762-6, 35521-4 #### [facility] CLIA [id number] [address] [place] STREPTOCOCCUS PNEUMONIAE AGo n 11-14-2023 STREPTOCOCCUS PNEUMONIAE AG STREP PNEUMO AG RESULT: Negative for Streptococcus pneumoniae antigen. Presumptive negative for pneumococcal pneumonia, suggesting no current or recent pneumococcal infection. Infection due to S.pneumoniae cannot be ruled out since the antigen present in the sample may be below the detection limit of the test. Normal [facility] Comment on above: Performed By: #### L [id number] #### [facility] CLIA [id number] [address] [place] Basic metabolic 2000 panelon 11-13-2023 Anion gap [Moles/Vol] 12 mmol/L Normal 9-18 [facility] Comment on above: Order Comment: Speci men Type: BLOOD SPECIMEN Ordering Facility: [facility] Address: [address] [place] [address] Performed By: #### 2 4321-2 #### [facility] CLIA [id number] [address] [place] [address] [place] Calcium [Mass/Vol] 8.0 mg/dL Low 8.5-10.2 [facility] Comment on above: Order Comment: Speci men Type: BLOOD SPECIMEN Ordering Facility: [facility] Address: [address] [place] [address] Performed By: #### 2 4321-2 #### [facility] CLIA [id number] [address] [place] Chloride [Moles/Vol] 95 mmol/L Low 97-105 [facility] Comment on above: Order Comment: Speci men Type: BLOOD SPECIMEN Ordering Facility: [facility] Address: [address] [place] [address] Performed By: #### 2 4321-2 #### [facility] CLIA [id number] [address] [place] CO2 [Moles/Vol] 28 mmol/L Normal 22-30 [facility] Comment on above: Order Comment: Speci men Type: BLOOD SPECIMEN Ordering Facility: [facility] Address: [address] [place] [address] Performed By: #### 2 4321-2 #### [facility] CLIA [id number] [address] STATES OF [facility] Creatinine [Mass/Vol] 0.90 mg/dL Normal 0.73-1.22 [facility] Comment on above: Order Comment: Speci men Type: BLOOD SPECIMEN Ordering Facility: [facility] Address: [address] [place] [address] Performed By: #### 2 4321-2 #### [facility] CLIA [id number] [address] Creatinine and Glomerular filtration rate.predicted panel (S/P/Bld) 103 mL/min/1.73m??? Normal >=60 [facility] Comment on above: Order Comment: Speci men Type: BLOOD SPECIMEN Ordering Facility: [facility] Address: [address] [place] [address] Result Comment: Ingrid mated Glomerular Filtration Rate [...] GFR. Performed By: #### 2 4321-2 #### [facility] CLIA [id number] [address] [place] [address] [place] Glucose [Mass/Vol] 104 mg/dL High 74-99 [facility] Comment on above: Order Comment: Speci men Type: BLOOD SPECIMEN Ordering Facility: [facility] Address: [address] [place] [address] Result Comment: The [place] Diabetes Association (ADA) provides guidance for cutoff [...] Standards of Medical Care in Diabetes 2016, [place] [employer]. Diabetes Care. 2016.39(Suppl 1). Performed By: #### 2 4321-2 #### [facility] CLIA [id number] [address] STATES OF [facility] Potassium [Moles/Vol] 4.7 mmol/L Normal 3.7-5.1 [facility] Comment on above: Order Comment: Meng blancas Type: BLOOD SPECIMEN Ordering Facility: [facility] Address: [address] [place] [address] Performed By: #### 2 4321-2 #### [facility] CLIA [id number] [address] Sodium [Moles/Vol] 135 mmol/L Low 136-144 [facility] Comment on above: Order Comment: Meng blancas Type: BLOOD SPECIMEN Ordering Facility: [facility] Address: [address] [place] [address] Performed By: #### 2 4321-2 #### [facility] CLIA [id number] [address] Urea nitrogen [Mass/Vol] 35 mg/dL High 9-24 [facility] Comment on above: Order Comment: Meng blancas Type: BLOOD SPECIMEN Ordering Facility: [facility] Address: [address] [place] [address] Performed By: #### 2 4321-2 #### [facility] CLIA [id number] [address] [place] CBC W Auto Differential pane l (Bld)on 11-13-2023 Basophils (Bld) [#/Vol] 0.04 10*3/uL Normal <0.11 [facility] Comment on above: Order Comment: Meng blancas Type: BLOOD SPECIMEN Ordering Facility: [facility] Address: [address] [place] [address] Performed By: #### 3 3762-6, 29273-9 #### [facility] CLIA [id number] [address] [place] Basophils/100 WBC (Bld) 0.3 % Normal [facility] Comment on above: Order Comment: Speci men Type: BLOOD SPECIMEN Ordering Facility: [facility] Address: [address] [place] [address] Performed By: #### 3 3762-6, 64809-7 #### [facility] CLIA [id number] [address] [place] Differential cell count method Nom (Bld) Auto Normal [facility] Comment on above: Order Comment: Speci men Type: BLOOD SPECIMEN Ordering Facility: [facility] Address: [address] [place] [address] Performed By: #### 3 3762-6, 69327-0 #### [facility] CLIA [id number] [address] [place] Eosinophils (Bld) [#/Vol] 10*3/uL Normal <0.46 [facility] Comment on above: Order Comment: Speci men Type: BLOOD SPECIMEN Ordering Facility: [facility] Address: [address] [place] [address] Performed By: #### 3 3762-6, 25800-7 #### [facility] CLIA [id number] [address] Eosinophils/100 WBC (Bld) 0.0 % Normal [facility] Comment on above: Order Comment: Speci men Type: BLOOD SPECIMEN Ordering Facility: [facility] Address: [address] [place] [address] Performed By: #### 3 3762-6, 71948-1 #### [facility] CLIA [id number] [address] [place] Erythrocyte distribution width (RBC) [Ratio] 12.7 % Normal 11.5-15.0 [facility] Comment on above: Order Comment: Speci men Type: BLOOD SPECIMEN Ordering Facility: [facility] Address: [address] [place] [address] Performed By: #### 3 376-6, 80567-5 #### [facility] CLIA [id number] [address] [place] Hematocrit (Bld) [Volume fraction] 52.4 % High 39.0-51.0 [facility] Comment on above: Order Comment: Speci men Type: BLOOD SPECIMEN Ordering Facility: [facility] Address: [address] [place] [address] Performed By: #### 3 3766, 15740-6 #### [facility] CLIA [id number] [address] [place] Hemoglobin (Bld) [Mass/Vol] 16.6 g/dL Normal 13.0-17.0 [facility] Comment on above: Order Comment: Speci men Type: BLOOD SPECIMEN Ordering Facility: [facility] Address: [address] [place] [address] Performed By: #### 3 3766, 58883-7 #### [facility] CLIA [id number] [address] [place] Immature granulocytes (Bld) [#/Vol] 0.09 10*3/uL Normal <0.10 [facility] Comment on above: Order Comment: Speci men Type: BLOOD SPECIMEN Ordering Facility: [facility] Address: [address] [place] [address] Performed By: #### 3 3766, 75500-1 #### [facility] CLIA [id number] [address] [place] Immature granulocytes/100 WBC (Bld) 0.6 % Normal [facility] Comment on above: Order Comment: Speci men Type: BLOOD SPECIMEN Ordering Facility: [facility] Address: [address] [place] [address] Performed By: #### 3 376-6, 72178-2 #### [facility] CLIA [id number] [address] [place] Lymphocytes (Bld) [#/Vol] 0.82 10*3/uL Low 1.00-4.00 [facility] Comment on above: Order Comment: Speci men Type: BLOOD SPECIMEN Ordering Facility: [facility] Address: [address] [place] [address] Performed By: #### 3 3762-6, 39301-6 #### [facility] CLIA [id number] [address] Lymphocytes/100 WBC (Bld) 5.6 % Normal [facility] Comment on above: Order Comment: Speci men Type: BLOOD SPECIMEN Ordering Facility: [facility] Address: [address] [place] [address] Performed By: #### 3 3762-6, 51164-4 #### [facility] CLIA [id number] [address] MCH (RBC) [Entitic mass] 31.2 pg Normal 26.0-34.0 [facility] Comment on above: Order Comment: Speci men Type: BLOOD SPECIMEN Ordering Facility: [facility] Address: [address] [place] [address] Performed By: #### 3 3762-6, 21073-4 #### [facility] CLIA [id number] [address] MCHC (RBC) [Mass/Vol] 31.7 g/dL Normal 30.5-36.0 [facility] Comment on above: Order Comment: Speci men Type: BLOOD SPECIMEN Ordering Facility: [facility] Address: [address] [place] [address] Performed By: #### 3 3762-6, 56917-9 #### [facility] CLIA [id number] [address] MCV (RBC) [Entitic vol] 98.5 fL Normal 80.0-100.0 [facility] Comment on above: Order Comment: Speci men Type: BLOOD SPECIMEN Ordering Facility: [facility] Address: [address] [place] [address] Performed By: #### 3 3762-6, 86923-9 #### [facility] CLIA [id number] [address] [place] Monocytes (Bld) [#/Vol] 1.22 10*3/uL High <0.87 [facility] Comment on above: Order Comment: Speci men Type: BLOOD SPECIMEN Ordering Facility: [facility] Address: [address] [place] [address] Performed By: #### 3 376-6, 41029-1 #### [facility] CLIA [id number] [address] [place] Monocytes/100 WBC (Bld) 8.4 % Normal [facility] Comment on above: Order Comment: Speci men Type: BLOOD SPECIMEN Ordering Facility: [facility] Address: [address] [place] [address] Performed By: #### 3 3766, 47302-6 #### [facility] CLIA [id number] [address] [place] Neutrophils (Bld) [#/Vol] 12.39 10*3/uL High 1.45-7.50 [facility] Comment on above: Order Comment: Speci men Type: BLOOD SPECIMEN Ordering Facility: [facility] Address: [address] [place] [address] Performed By: #### 3 3762-6, 05434-3 #### [facility] CLIA [id number] [address] [place] Neutrophils/100 WBC (Bld) 85.1 % Normal [facility] Comment on above: Order Comment: Speci men Type: BLOOD SPECIMEN Ordering Facility: [facility] Address: [address] [place] [address] Performed By: #### 3 3762-6, 38831-3 #### [facility] CLIA [id number] 1 [place] [address] [place] Nucleated RBC (Bld) [#/Vol] 10*3/uL Normal <0.01 [facility] Comment on above: Order Comment: Speci men Type: BLOOD SPECIMEN Ordering Facility: [facility] Address: [address] [place] [address] Performed By: #### 3 3762-6, 87971-7 #### [facility] CLIA [id number] [address] Nucleated RBC/100 WBC (Bld) [Ratio] 0.0 /100 WBC Normal [facility] Comment on above: Order Comment: Speci men Type: BLOOD SPECIMEN Ordering Facility: [facility] Address: [address] [place] [address] Performed By: #### 3 3762-6, 09230-7 #### [facility] CLIA [id number] [address] [place] Platelet mean volume (Bld) [Entitic vol] 9.8 fL Normal 9.0-12.7 [facility] Comment on above: Order Comment: Speci men Type: BLOOD SPECIMEN Ordering Facility: [facility] Address: [address] [place] [address] Performed By: #### 3 3762-6, 98910-8 #### [facility] CLIA [id number] [address] [place] Platelets (Bld) [#/Vol] 262 10*3/uL Normal 150-400 [facility] Comment on above: Order Comment: Speci men Type: BLOOD SPECIMEN Ordering Facility: [facility] Address: [address] [place] [address] Performed By: #### 3 3762-6, 39168-0 #### [facility] CLIA [id number] [address] [place] RBC (Bld) [#/Vol] 5.32 10*6/uL Normal 4.20-6.00 [facility] Comment on above: Order Comment: Speci men Type: BLOOD SPECIMEN Ordering Facility: [facility] Address: [address] [place] [address] Performed By: #### 3 3762-6, 82282-1 #### [facility] CLIA [id number] 1 [place] [address] [place] WBC (Bld) [#/Vol] 14.56 10*3/uL High 3.70-11.00 [facility] Comment on above: Order Comment: Speci men Type: BLOOD SPECIMEN Ordering Facility: [facility] Address: [facility] [place] [address] Performed By: #### 3 3762-6, 58992-3 #### [facility] CLIA [id number] 1 [place] [address] [facility] CONSULT PROGon 11-13-2023 CONSULT PROG HNO ID: [id number] Author: Daxa Gómez RPh Service: Pharmacy Author [...] questions, [place] [phone]. Age: [age] year old Allergies: ALLERGIES No [...] Levels: No results found for: GISELLA Gómez, [facility] Normal [facility] Comprehensive metabolic 2000 panelon 11-13-2023 Albumin [Mass/Vol] 4.4 g/dL Normal 3.9-4.9 [facility] Comment on above: Order Comment: Speci men Type: BLOOD SPECIMENOrdering Facility: [facility] Address: [address] [place] [address] Performed By: #### 3 3762-6, 87110-4 ####[facility] [id number] [address] [place] ALP [Catalytic activity/Vol] 114 U/L High 38-113 [facility] Comment on above: Order Comment: Speci men Type: BLOOD SPECIMENOrdering Facility: [facility] Address: [address] [place] [address] Performed By: #### 3 3762-6, 99002-5 ####[facility]IA [id number] [place] [address] [place] ALT With P-5'-P [Catalytic activity/Vol] 46 U/L Normal 10-54 [facility] Comment on above: Order Comment: Speci men Type: BLOOD SPECIMENOrdering Facility: [facility] Address: [address] [place] [address] Performed By: #### 3 3762-6, ####[facility] [id number] [place] [address] [place] Anion gap [Moles/Vol] 14 mmol/L Normal 9-18 [facility] Comment on above: Order Comment: Speci men Type: BLOOD SPECIMENOrdering Facility: [facility] Address: [address] [place] [address] Performed By: #### 3 3762-6, ####[facility]IA [id number] [place] [address] [place] AST With P-5'-P [Catalytic activity/Vol] 42 U/L High 14-40 [facility] Comment on above: Order Comment: Speci men Type: BLOOD SPECIMENOrdering Facility: [facility] Address: [address] [place] [address] Performed By: #### 3 3762-6, ####[facility] [id number] [place] [address] [place] Bilirubin [Mass/Vol] 0.5 mg/dL Normal 0.2-1.3 [facility] Comment on above: Order Comment: Speci men Type: BLOOD SPECIMENOrdering Facility: [facility] Address: [address] [place] [address] Performed By: #### 3 3762-6, ####[facility]ORY[facility]IA [id number] [place] [address] [place] Calcium [Mass/Vol] 9.1 mg/dL Normal 8.5-10.2 [facility] Comment on above: Order Comment: Speci men Type: BLOOD SPECIMENOrdering Facility: [facility] Address: [address] [place] [address] Performed By: #### 3 3762-6, 71461-5 ####[facility]ORYCLIA [id number] [address] OF [facility] Chloride [Moles/Vol] 92 mmol/L Low 97-105 [facility] Comment on above: Order Comment: Speci men Type: BLOOD SPECIMENOrdering Facility: [facility] Address: [address] [place] [address] Performed By: #### 3 3762-6, 52752-4 ####[facility]ORYCLIA [id number] [address] OF [facility] CO2 [Moles/Vol] 31 mmol/L High 22-30 [facility] Comment on above: Order Comment: Speci men Type: BLOOD SPECIMENOrdering Facility: [facility] Address: [address] [place] [address] Performed By: #### 3 3762-6, 99027-3 ####[facility]ORYCLIA [id number] [address] Creatinine [Mass/Vol] 1.15 mg/dL Normal 0.73-1.22 [facility] Comment on above: Order Comment: Speci men Type: BLOOD SPECIMENOrdering Facility: [facility] Address: [address] [place] [address] Performed By: #### 3 3762-6, 38572-8 ####[facility]ORYCLIA [id number] [address] Creatinine and Glomerular filtration rate.predicted panel (S/P/Bld) 77 mL/min/1.73m??? Normal >=60 [facility] Comment on above: Order Comment: Speci men Type: BLOOD SPECIMENOrdering Facility: [facility] Address: [address] [place] [address] Result Comment: Ingrid mated Glomerular Filtration Rate [...] actual GFR. Performed By: #### 3 3762-6, 59395-6 ####[facility]ORYCLIA [id number] [place] [address] [place] Glucose [Mass/Vol] 134 mg/dL High 74-99 [facility] Comment on above: Order Comment: Meng blancas Type: BLOOD SPECIMENOrdering Facility: [facility] Address: [address] [place] [address] Result Comment: The [place] Diabetes Association (ADA) provides guidance for cutoff [...] Standards of Medical Care in Diabetes 2016, [place] [employer]. Diabetes Care. 2016.39(Suppl 1). Performed By: #### 3 3762-6, 77749-6 ####[facility]ORYCLIA [id number] [place] [address] [place] Potassium [Moles/Vol] 4.6 mmol/L Normal 3.7-5.1 [facility] Comment on above: Order Comment: Meng blancas Type: BLOOD SPECIMENOrdering Facility: [facility] Address: [address] [place] [id number] Performed By: #### 3 3762-6, 17903-8 ####[facility]ORYCLIA [id number] [place] [address] [place] Protein [Mass/Vol] 7.8 g/dL Normal 6.3-8.0 [facility] Comment on above: Order Comment: Meng blancas Type: BLOOD SPECIMENOrdering Facility: [facility] Address: [address] [place] [address] Performed By: #### 3 3762-6, 45952-1 ####[facility]ORYCLIA [id number] [place] [address] [place] [facility] Sodium [Moles/Vol] 137 mmol/L Normal 136-144 [facility] Comment on above: Order Comment: Speci men Type: BLOOD SPECIMENOrdering Facility: [facility] Address: [address] [place] [address] Performed By: #### 3 3762-6, 10766-1 ####[facility]ORYCLIA [id number] [place] [id number] [place] Urea nitrogen [Mass/Vol] 31 mg/dL High 9-24 [facility] Comment on above: Order Comment: Speci men Type: BLOOD SPECIMENOrdering Facility: [facility] Address: [address] [place] [address] Performed By: #### 3 3762-6, 70760-7 ####[facility]ORYCLIA [id number] [address] [facility] ECG COMPLETEon 11-13-2023 ECG COMPLETE Ventricular Rate : 1 03 BPM Atrial Rate : 103 BPM P-R Interval : 140 ms QRS Duration : 88 ms Q-T Interval : 358 ms QTC Calculation(Bazett) : 468 ms Calculated P [place] : 76 degrees Calculated R [place] : -77 degrees Calculated T [place] : 71 degrees SINUS TACHYCARDIA WITH FUSION COMPLEXES PULMONARY DISEASE PATTERN LEFT ANTERIOR FASCICULAR BLOCK INFERIOR INFARCT , AGE UNDETERMINED ABNORMAL ECG NO PREVIOUS ECGS AVAILABLE Confirmed by MD ERVIN THOMAS ([id number]) on 11/27/2023 9:05:12 PM NAME : JAVIER DICKSON PID : [id number] : 1970 Gender : Male Race : ORD : [id number] Procedure Date : Nov 13 2023 05:11:14 Edit Date : Nov 27 2023 21:05:13 Diagnosis: SINUS TACHYCARDIA WITH FUSION COMPLEXES PULMONARY DISEASE PATTERN LEFT ANTERIOR FASCICULAR BLOCK INFERIOR INFARCT , AGE UNDETERMINED ABNORMAL ECG NO PREVIOUS ECGS AVAILABLE Confirmed by MD ERVIN THOMAS ([id number]) on 11/27/2023 9:05:12 PM Test Reason : Chest Pain Location : 4 : AKED 29 Overread By : MD ERVIN THOMAS Edited By : MD ERVIN THOMAS Referred By : , Acquired by : JARET TALAMANTES [facility] ED NOTEon 11-13-2023 ED NOTE HNO ID: [id number] Author: Kenan Smiley RN Service: Emergency Medicine Author Type: Registered Nurse Type: ED Notes Filed: 11/13/2023 5:07 PM Note Text: Dr Varma notified of pt's last VBG results. [facility] ED NOTE HNO ID: [id number] Author: Kenan Smiley RN Service: Emergency Medicine Author Type: Registered Nurse Type: ED Notes Filed: 11/13/2023 3:14 PM Note Text: Pt assisted with urinal, tolerated well. Pt insisted upon standing. This RN stood by for pt safety. [facility] ED NOTE HNO ID: [id number] Author: Brendan Loja RN Service: Emergency Medicine Author Type: Registered Nurse Type: ED Notes Filed: 11/13/2023 7:03 AM Note Text: Report given to kenan SPAIN [facility] ED NOTE HNO ID: [id number] Author: Jaret Talamantes RN Service: Emergency Medicine Author Type: Registered Nurse Type: ED Notes Filed: 11/13/2023 6:22 AM Note Text: This RN remained at bedside w patient while BiPap was placed, pt initially fighting trying to pull mask off. Given blankets and encouraged to relax. Report given to Ben SPAIN. [facility] ED NOTE HNO ID: [id number] Author: Brendan Loja, JUDIT Service: Emergency Medicine Author Type: Registered Nurse Type: ED Notes Filed: 11/13/2023 6:16 AM Note Text: Pt moved to ed room 3. Xray bedside. Pt on continuous cardiac and spo2% monitoring. Awaiting report from current primary nurse [facility] ED NOTE HNO ID: [id number] Author: Jaret Talamantes RN Service: Emergency Medicine Author Type: Registered Nurse Type: ED Notes Filed: 11/13/2023 6:02 AM Note Text: XR called for portable [facility] ED NOTE HNO ID: [id number] Author: Albin, Jaret E, RN Service: Emergency Medicine Author Type: Registered Nurse Type: ED Notes Filed: 11/13/2023 6:02 AM Note Text: RTs at bedside notified RN that pt was less responsive and belly breathing. Dr. Weller and Vinnie to bedside Pt responds to loud verbal / painful stimuli with rambling incoherent words. [facility] ED NOTE HNO ID: [id number] Author: Jaret Talamantes RN Service: Emergency Medicine Author Type: Registered Nurse Type: ED Notes Filed: 11/13/2023 5:40 AM Note Text: Dr Weller and Alejandrina at bedside for USIV access [facility] ED NOTE HNO ID: [id number] Author: Jaret Talamantes RN Service: Emergency Medicine Author Type: Registered Nurse Type: ED Notes Filed: 11/13/2023 5:29 AM Note Text: RT notified for treaments [facility] ED NOTE HNO ID: [id number] Author: Jaret Talamantes RN Service: Emergency Medicine Author Type: Registered Nurse Type: ED Notes Filed: 11/13/2023 5:25 AM Note Text: IV access attempted x3 RNs x4 total unsuccessfully. Provider notified for USI [facility] ED NOTE HNO ID: [id number] Author: Jaret Talamantes RN Service: Emergency Medicine Author Type: Registered Nurse Type: ED Notes Filed: 11/13/2023 4:56 AM Note Text: RT notified of patient [facility] ED NOTE HNO ID: [id number] Author: Clint Alvarado RN Service: ? Author Type: Registered Nurse Type: ED Notes Filed: 11/13/2023 4:34 AM Note Text: Bed: [facility] Expected date: Expected time: Means of arrival: Comments: squad [facility] ED PROV NOTEon 11-13-2023 ED PROV NOTE HNO ID: [id number] Author: Danilo Mcgee MD Service: Emergency Medicine [...] STEPHEN 11/13/23 0933 DIANNA [place] 11/13/23 1053 [facility] ED PROV NOTE HNO ID: [id number] Author: JOHN BIRMINGHAM MD Service: Emergency Medicine [...] of the following condition(s): Respiratory impairment and [employer] impairment, which the patient had and/or has [...] Normal r (more content not included)... Normal [facility] FLUABV+SARS-CoV-2+RSV Pnl Re sp EH+probeon 11-13-2023 FLUABV+SARS-CoV-2+RSV Pnl Resp EH+probe COVID 19 RESULT: Not detected The method used is RT-PCR or an equivalent NAAT method. Reference Range(the expected result in uninfected individuals): Not detected INFLUENZA A PCR: Not detected INFLUENZA B PCR: Not detected RSV PCR: Detected Abnormal [facility] Comment on above: Performed By: #### L [id number] #### [facility] CLIA [id number] [address] [place] [address] [place] Gas and Carbon monoxide pane l (BldV)on 11-13-2023 Base excess Calc (BldV) [Moles/Vol] 6 mmol/L High 0-2 [facility] Comment on above: Order Comment: Speci men Type: VENOUS BLOOD SPECIMENOrdering Facility: [facility] Address: [address] [place] [address] Performed By: #### 2 4344-4 ####[facility]ORYCLIA [id number] [place] [address] [place] Body temperature 98.6 [degF] Normal [facility] Comment on above: Order Comment: Speci men Type: VENOUS BLOOD SPECIMENOrdering Facility: [facility] Address: [address] [place] [address] Performed By: #### 2 4344-4 ####[facility]ORYCLIA [id number] [place] [address] [place] Calcium.ionized (BldV) [Mass/Vol] 1.13 mmol/L Normal 1.08-1.30 [facility] Comment on above: Order Comment: Speci men Type: VENOUS BLOOD SPECIMENOrdering Facility: [facility] Address: [address] [place] [address] Performed By: #### 2 4344-4 ####[facility]ORYCLIA [id number] [place] [address] [place] Calcium.ionized adjusted to pH 7.4 (BldA) [Moles/Vol] 1.06 mmol/L Low 1.08-1.30 [facility] Comment on above: Order Comment: Speci men Type: VENOUS BLOOD SPECIMENOrdering Facility: [facility] Address: [address] [place] [address] Performed By: #### 2 4344-4 ####[facility]ORYCLIA [id number] [address] [place] Carboxyhemoglobin (BldV) [Mass fraction] 1.6 % Normal 0.0-2.0 [facility] Comment on above: Order Comment: Speci men Type: VENOUS BLOOD SPECIMENOrdering Facility: [facility] Address: [address] [place] [address] Result Comment: Carb oxyhemoglobin Reference Range for Smokers: 2.0-8.0% Performed By: #### 2 4344-4 ####[facility]ORYCLIA [id number] [place] [address] [place] Chloride [Moles/Vol] 96 mmol/L Low 102-109 [facility] Comment on above: Order Comment: Speci men Type: VENOUS BLOOD SPECIMENOrdering Facility: [facility] Address: [address] [place] [address] Performed By: #### 2 4344-4 ####[facility]ORYCLIA [id number] [address] [place] CO2 (BldV) [Partial pressure] 79 mm[Hg] High 42-55 [facility] Comment on above: Order Comment: Speci men Type: VENOUS BLOOD SPECIMENOrdering Facility: [facility] Address: [address] [place] [address] Performed By: #### 2 4344-4 ####[facility]ORYCLIA [id number] [place] [id number] [place] Glucose [Mass/Vol] 141 mg/dL High 60-105 [facility] Comment on above: Order Comment: Speci men Type: VENOUS BLOOD SPECIMENOrdering Facility: [facility] Address: [address] [place] [address] Performed By: #### 2 4344-4 ####[facility]ORYCLIA [id number] [place] [id number] [place] HCO3 (Bld) [Moles/Vol] 36 mmol/L High 24-28 [facility] Comment on above: Order Comment: Speci men Type: VENOUS BLOOD SPECIMENOrdering Facility: [facility] Address: [address] [place] [address] Performed By: #### 2 4344-4 ####[facility]ATORYCLIA [id number] [place] [address] [place] Hematocrit (Bld) [Volume fraction] 49.1 % Normal 39.0-51.0 [facility] Comment on above: Order Comment: Speci men Type: VENOUS BLOOD SPECIMENOrdering Facility: [facility] Address: [address] [place] [address] Performed By: #### 2 4344-4 ####[facility]ATORYCLIA [id number] [place] [address] [place] Hemoglobin (Bld) [Mass/Vol] 16.0 g/dL Normal 13.0-17.0 [facility] Comment on above: Order Comment: Speci men Type: VENOUS BLOOD SPECIMENOrdering Facility: [facility] Address: [address] [place] [address] Performed By: #### 2 4344-4 ####[facility]ATORYCLIA [id number] [place] [address] [place] Lactate [Moles/Vol] 3.0 mmol/L High 0.5-2.2 [facility] Comment on above: Order Comment: Speci men Type: VENOUS BLOOD SPECIMENOrdering Facility: [facility] Address: [address] [place] [address] Performed By: #### 2 4344-4 ####[facility]ORYCLIA [id number] [place] [address] [place] Methemoglobin (Bld) [Mass fraction] 1.1 % Normal 0.0-1.5 [facility] Comment on above: Order Comment: Speci men Type: VENOUS BLOOD SPECIMENOrdering Facility: [facility] Address: [address] [place] [address] Performed By: #### 2 4344-4 ####[facility]ORYCLIA [id number] [address] [place] O2 THERAPY Positive Normal [facility] Comment on above: Order Comment: Speci men Type: VENOUS BLOOD SPECIMENOrdering Facility: [facility] Address: [address] [place] [address] Performed By: #### 2 4344-4 ####[facility]ORYCLIA [id number] [place] [address] [place] Oxygen (BldV) [Partial pressure] 71 mm[Hg] High 35-45 [facility] Comment on above: Order Comment: Speci men Type: VENOUS BLOOD SPECIMENOrdering Facility: [facility] Address: [address] [place] [address] Performed By: #### 2 4344-4 ####[facility]ORYCLIA [id number] [address] [place] Oxygen saturation in Venous blood 92 % High 60-85 [facility] Comment on above: Order Comment: Speci men Type: VENOUS BLOOD SPECIMENOrdering Facility: [facility] Address: [address] [place] [address] Performed By: #### 2 4344-4 ####[facility]ORYCLIA [id number] [address] [place] Oxyhemoglobin (BldV) [Mass fraction] 89 % High 60-85 [facility] Comment on above: Order Comment: Speci men Type: VENOUS BLOOD SPECIMENOrdering Facility: [facility] Address: [address] [place] [address] Performed By: #### 2 4344-4 ####[facility]ATORYCLIA [id number] [place] [address] [place] pH (BldV) 7.28 [pH] Low 7.32-7.42 [facility] Comment on above: Order Comment: Speci men Type: VENOUS BLOOD SPECIMENOrdering Facility: [facility] Address: [address] [place] [address] Performed By: #### 2 4344-4 ####[facility] LABORATORYCLIA [id number] [place] [address] [place] Potassium [Moles/Vol] 4.6 mmol/L Normal 3.5-5.0 [facility] Comment on above: Order Comment: Speci men Type: VENOUS BLOOD SPECIMENOrdering Facility: [facility] Address: [address] [place] [address] Performed By: #### 2 4344-4 ####[facility] LABORATORYCLIA [id number] [address] [place] Sodium [Moles/Vol] 137 mmol/L Normal 136-144 [facility] Comment on above: Order Comment: Speci men Type: VENOUS BLOOD SPECIMENOrdering Facility: [facility] Address: [address] [place] [address] Performed By: #### 2 4344-4 ####[facility] LABORATORYCLIA [id number] [place] [address] [place] Base excess Calc (BldV) [Moles/Vol] 4 mmol/L High 0-2 [facility] Comment on above: Order Comment: Speci men Type: BLOOD SPECIMEN Ordering Facility: [facility] Address: [address] [place] [address] Performed By: #### 3 3762-6, 55301-7 #### [facility] CLIA [id number] [address] Body temperature 98.6 [degF] Normal [facility] Comment on above: Order Comment: Speci men Type: BLOOD SPECIMEN Ordering Facility: [facility] Address: [address] [place] [address] Performed By: #### 3 3762-6, 57772-9 #### [facility] CLIA [id number] [address] OF [facility] Calcium.ionized (BldV) [Mass/Vol] 1.11 mmol/L Normal 1.08-1.30 [facility] Comment on above: Order Comment: Speci men Type: BLOOD SPECIMEN Ordering Facility: [facility] Address: [address] [place] [address] Performed By: #### 3 3762-6, 33834-0 #### [facility] CLIA [id number] [address] [place] [address] Calcium.ionized adjusted to pH 7.4 (BldA) [Moles/Vol] 1.02 mmol/L Low 1.08-1.30 [facility] Comment on above: Order Comment: Speci men Type: BLOOD SPECIMEN Ordering Facility: [facility] Address: [address] [place] [address] Performed By: #### 3 3762-6, 47656-0 #### [facility] CLIA [id number] [address] [place] [address] [place] Carboxyhemoglobin (BldV) [Mass fraction] 2.3 % High 0.0-2.0 [facility] Comment on above: Order Comment: Speci men Type: BLOOD SPECIMEN Ordering Facility: [facility] Address: [address] [place] [address] Result Comment: Carb oxyhemoglobin Reference Range for Smokers: 2.0-8.0% Performed By: #### 3 3762-6, 43371-1 #### [facility] CLIA [id number] [address] [place] Chloride [Moles/Vol] 95 mmol/L Low 102-109 [facility] Comment on above: Order Comment: Speci men Type: BLOOD SPECIMEN [facility]ing Facility: [facility] Address: [address] [place] [address] Performed By: #### 3 3762-6, 99887-9 #### [facility] CLIA [id number] [address] OF [facility] CO2 (BldV) [Partial pressure] 86 mm[Hg] High 42-55 [facility] Comment on above: Order Comment: Speci men Type: BLOOD SPECIMEN Ordering Facility: [facility] Address: [address] [place] [address] Performed By: #### 3 3762-6, 92546-9 #### [facility] CLIA [id number] [address] STATES OF [facility] Glucose [Mass/Vol] 143 mg/dL High 60-105 [facility] Comment on above: Order Comment: Speci men Type: BLOOD SPECIMEN Ordering Facility: [facility] Address: [address] [place] [address] Performed By: #### 3 3762-6, 73451-1 #### [facility] CLIA [id number] [address] OF [facility] HCO3 (Bld) [Moles/Vol] 36 mmol/L High 24-28 [facility] Comment on above: Order Comment: Speci men Type: BLOOD SPECIMEN [facility]ing Facility: [facility] Address: [address] [place] [address] Performed By: #### 3 3762-6, 96562-7 #### [facility] CLIA [id number] [address] [place] Hematocrit (Bld) [Volume fraction] 49.8 % Normal 39.0-51.0 [facility] Comment on above: Order Comment: Speci men Type: BLOOD SPECIMEN Ordering Facility: [facility] Address: [address] [place] [address] Performed By: #### 3 3762-6, 66731-0 #### [facility] CLIA [id number] [address] [place] Hemoglobin (Bld) [Mass/Vol] 16.3 g/dL Normal 13.0-17.0 [facility] Comment on above: Order Comment: Speci men Type: BLOOD SPECIMEN [facility]ing Facility: [facility] Address: [address] [place] [address] Performed By: #### 3 3762-6, 81284-6 #### [facility] CLIA [id number] [address] [place] Lactate [Moles/Vol] 2.9 mmol/L High 0.5-2.2 [facility] Comment on above: Order Comment: Speci men Type: BLOOD SPECIMEN Ordering [facility]: [facility] Address: [address] [place] [address] Performed By: #### 3 3762-6, 57860-8 #### [facility] CLIA [id number] [address] [place] Methemoglobin (Bld) [Mass fraction] 0.6 % Normal 0.0-1.5 [facility] Comment on above: Order Comment: Speci men Type: BLOOD SPECIMEN Ordering Facility: [facility] Address: [address] [place] [address] Performed By: #### 3 3762-6, 71917-1 #### [facility] CLIA [id number] [address] OF [facility] O2 THERAPY Positive Normal [facility] Comment on above: Order Comment: Speci men Type: BLOOD SPECIMEN Ordering Facility: [facility] Address: [address] [place] [address] Performed By: #### 3 3762-6, 62889-0 #### [facility] CLIA [id number] [address] [place] Oxygen (BldV) [Partial pressure] 75 mm[Hg] High 35-45 [facility] Comment on above: Order Comment: Speci men Type: BLOOD SPECIMEN Ordering Facility: [facility] Address: [facility] [place] [address] Performed By: #### 3 3762-6, 17875-9 #### [facility] CLIA [id number] [address] [place] Oxygen saturation in Venous blood 92 % High 60-85 [facility] Comment on above: Order Comment: Speci men Type: BLOOD SPECIMEN [facility]ing [facility]: [facility] Address: [address] [place] [address] Performed By: #### 3 3762-6, 41086-3 #### [facility] CLIA [id number] 1 [place] [address] [place] Oxyhemoglobin (BldV) [Mass fraction] 89 % High 60-85 [facility] Comment on above: Order Comment: Speci men Type: BLOOD SPECIMEN Ordering [facility]: [facility] Address: [address] [place] [address] Performed By: #### 3 3762-6, 22264-2 #### [facility] CLIA [id number] [address] [place] pH (BldV) 7.24 [pH] Low 7.32-7.42 [facility] Comment on above: Order Comment: Speci men Type: BLOOD SPECIMEN Ordering [facility]: [facility] Address: [address] [place] [address] Performed By: #### 3 3762-6, 59921-0 #### [facility] CLIA [id number] [address] [place] Potassium [Moles/Vol] 4.9 mmol/L Normal 3.5-5.0 [facility] Comment on above: Order Comment: Speci men Type: BLOOD SPECIMEN Ordering [facility]: [facility] Address: [address] [place] [address] Performed By: #### 3 3762-6, 61848-6 #### [facility] CLIA [id number] [address] [place] Sodium [Moles/Vol] 135 mmol/L Low 136-144 [facility] Comment on above: Order Comment: Speci men Type: BLOOD SPECIMEN Ordering Facility: [facility] Address: [address] [place] [address] Performed By: #### 3 3762-6, 23003-2 #### [facility] CLIA [id number] [address] STATES [facility] Base excess Calc (BldV) [Moles/Vol] 6 mmol/L High 0-2 [facility] Comment on above: Order Comment: Speci men Type: VENOUS BLOOD SPECIMENOrdering Facility: [facility] Address: [address] [place] [address] Performed By: #### 2 4344-4 ####[facility]ORATORYCLIA [id number] [address] Body temperature 98.6 [degF] Normal [facility] Comment on above: Order Comment: Speci men Type: VENOUS BLOOD SPECIMENOrdering Facility: [facility] Address: [address] [place] [address] Performed By: #### 2 4344-4 ####[facility]ORATORYCLIA [id number] [address] Calcium.ionized (BldV) [Mass/Vol] 1.06 mmol/L Low 1.08-1.30 [facility] Comment on above: Order Comment: Speci men Type: VENOUS BLOOD SPECIMENOrdering Facility: [facility] Address: [address] [place] [address] Performed By: #### 2 4344-4 ####[facility]ORATORYCLIA [id number] [address] STATES [facility] Calcium.ionized adjusted to pH 7.4 (BldA) [Moles/Vol] 0.97 mmol/L Low 1.08-1.30 [facility] Comment on above: Order Comment: Speci men Type: VENOUS BLOOD SPECIMENOrdering Facility: [facility] Address: [address] [place] [address] Performed By: #### 2 4344-4 ####[facility] LABORATORYCLIA [id number] [place] [address] [place] Carboxyhemoglobin (BldV) [Mass fraction] 2.5 % High 0.0-2.0 [facility] Comment on above: Order Comment: Speci men Type: VENOUS BLOOD SPECIMENOrdering Facility: [facility] Address: [address] [place] [address] Result Comment: Carb oxyhemoglobin Reference Range for Smokers: 2.0-8.0% Performed By: #### 2 4344-4 ####[facility]ORYCLIA [id number] [place] [address] [place] Chloride [Moles/Vol] 95 mmol/L Low 102-109 [facility] Comment on above: Order Comment: Speci men Type: VENOUS BLOOD SPECIMENOrdering Facility: [facility] Address: [address] [place] [address] Performed By: #### 2 4344-4 ####[facility] LABORATORYCLIA [id number] [address] [place] CO2 (BldV) [Partial pressure] 88 mm[Hg] High 42-55 [facility] Comment on above: Order Comment: Speci men Type: VENOUS BLOOD SPECIMENOrdering Facility: [facility] Address: [address] [place] [address] Performed By: #### 2 4344-4 ####[facility] LABORATORYCLIA [id number] [place] [address] [place] Glucose [Mass/Vol] 116 mg/dL High 60-105 [facility] Comment on above: Order Comment: Speci men Type: VENOUS BLOOD SPECIMENOrdering Facility: [facility] Address: [address] [place] [address] Performed By: #### 2 4344-4 ####[facility]ATORYCLIA [id number] [place] [address] [place] HCO3 (Bld) [Moles/Vol] 37 mmol/L High 24-28 [facility] Comment on above: Order Comment: Speci men Type: VENOUS BLOOD SPECIMENOrdering Facility: [facility] Address: [address] [place] [address] Performed By: #### 2 4344-4 ####[facility]ATORYCLIA [id number] [address] [place] Hematocrit (Bld) [Volume fraction] 47.1 % Normal 39.0-51.0 [facility] Comment on above: Order Comment: Speci men Type: VENOUS BLOOD SPECIMENOrdering Facility: [facility] Address: [address] [place] [address] Performed By: #### 2 4344-4 ####[facility] LABORATORYCLIA [id number] [address] [place] Hemoglobin (Bld) [Mass/Vol] 15.4 g/dL Normal 13.0-17.0 [facility] Comment on above: Order Comment: Speci men Type: VENOUS BLOOD SPECIMENOrdering Facility: [facility] Address: [address] [place] [address] Performed By: #### 2 4344-4 ####[facility] LABORATORYCLIA [id number] [address] Lactate [Moles/Vol] 1.8 mmol/L Normal 0.5-2.2 [facility] Comment on above: Order Comment: Speci men Type: VENOUS BLOOD SPECIMENOrdering Facility: [facility] Address: [address] [place] [address] Performed By: #### 2 4344-4 ####[facility] LABORATORYCLIA [id number] [address] [place] Methemoglobin (Bld) [Mass fraction] 0.5 % Normal 0.0-1.5 [facility] Comment on above: Order Comment: Speci men Type: VENOUS BLOOD SPECIMENOrdering Facility: [facility] Address: [address] [place] [address] Performed By: #### 2 4344-4 ####[facility]ATORYCLIA [id number] [address] [place] O2 THERAPY Positive Normal [facility] Comment on above: Order Comment: Speci men Type: VENOUS BLOOD SPECIMENOrdering Facility: [facility] Address: [address] [place] [address] Performed By: #### 2 4344-4 ####[facility]ATORYCLIA [id number] [place] [id number] [facility] [place] Oxygen (BldV) [Partial pressure] 72 mm[Hg] High 35-45 [facility] Comment on above: Order Comment: Speci men Type: VENOUS BLOOD SPECIMENOrdering Facility: [facility] Address: [address] [place] [address] Performed By: #### 2 4344-4 ####[facility] LABORATORYCLIA [id number] [address] [place] Oxygen saturation in Venous blood 92 % High 60-85 [facility] Comment on above: Order Comment: Speci men Type: VENOUS BLOOD SPECIMENOrdering Facility: [facility] Address: [address] [place] [address] Performed By: #### 2 4344-4 ####[facility]ORATORYCLIA [id number] [address] [place] Oxyhemoglobin (BldV) [Mass fraction] 89 % High 60-85 [facility] Comment on above: Order Comment: Speci men Type: VENOUS BLOOD SPECIMENOrdering Facility: [facility] Address: [address] [place] [address] Performed By: #### 2 4344-4 ####[facility]ORATORYCLIA [id number] [place] [id number] [place] pH (BldV) 7.25 [pH] Low 7.32-7.42 [facility] Comment on above: Order Comment: Speci men Type: VENOUS BLOOD SPECIMENOrdering Facility: [facility] Address: [address] [place] [address] Performed By: #### 2 4344-4 ####[facility]ORATORYCLIA [id number] [place] [id number] [place] Potassium [Moles/Vol] 7.3 mmol/L Critically high 3.5-5.0 [facility] Comment on above: Order Comment: Speci men Type: VENOUS BLOOD SPECIMENOrdering Facility: [facility] Address: [address] [place] [address] Performed By: #### 2 4344-4 ####[facility]ORATORYCLIA [id number] [place] [address] [place] [facility] Sodium [Moles/Vol] 131 mmol/L Low 136-144 [facility] Comment on above: Order Comment: Meng blancas Type: VENOUS BLOOD SPECIMENOrdering Facility: [facility] Address: [address] [place] [address] Performed By: #### 2 4344-4 ####[facility]ORATORYCLIA [id number] [place] [address] [place] HIGH SENSITIVITY TROPONIN T (INITIAL)on 11-13-2023 Troponin T.cardiac High sensitivity method [Mass/Vol] 57 ng/L High <12 [facility] Comment on above: Order Comment: Meng blancas Type: BLOOD SPECIMEN [facility] Address: [address] [place] [address] Result Comment: When assessing risk for acute [...] day MACE. Performed By: #### 3 3762-6, 32159-0 #### [facility] CLIA [id number] [address] [place] HIGH SENSITIVITY TROPONIN T (SECOND)on 11-13-2023 Troponin T.cardiac High sensitivity method [Mass/Vol] 54 ng/L High <12 [facility] Comment on above: Order Comment: Meng blancas Type: BLOOD SPECIMEN [facility] Address: [address] [place] [address] Result Comment: When assessing risk for acute [...] day MACE. Performed By: #### 3 3762-6, 24275-9 #### [facility] CLIA [id number] [address] HIGH SENSITIVITY TROPONIN T (THIRD) 3 HRS AFTER INITIALon 11-13-2023 Troponin T.cardiac High sensitivity method [Mass/Vol] 54 ng/L High <12 [facility] Comment on above: Order Comment: Speci men Type: BLOOD SPECIMEN [facility]: [facility] Address: [address] [place] [address] [place] [address] Result Comment: When assessing risk for acute [...] 30 day MACE. Performed By: #### L US0807 #### [facility] CLIA [id number] [address] HISTORY PHYSICALon HISTORY PHYSICAL HNO ID: [id number] Author: Jill Shin MD Service: Pulmonary Disease Author Type: Physician Type: HANDP Filed: 11/13/2023 3:44 PM Note Text: [facility] STAFF PHYSICIAN NOTE OF PERSONAL INVOLVEMENT IN CARE Attending Note I have personally performed a face to face assessment of the patient and have reviewed the [employer] SPECIALIST/resident note and documentation. I personally participated [...] AST 42* ALT 46 ABG: Invalid input(s): [id number] Chest imaging personally reviewed Pex: vitals as [...] 20 Gauge <1 day Peripheral 11/13/23 0750 [facility] Right Forearm 20 Gauge <1 day History: [...] patient for (more content not included)... Normal [facility] HISTORY PHYSICAL HNO ID: [id number] Author: Jill Shin MD Service: Critical Care Author Type: Physician Type: HANDP Filed: 11/14/2023 6:56 AM Note Text: MICU HANDP PATIENT NAME: Javier Dickson REASON FOR ADMISSION: Respiratory failure (Acute, with Hypercapnea, with Hypoxemia) and Severe metabolic disorder DATE: November 13, 2023 Subjective HPI Mr. Javier Dickson is a 53 year old male with PMH of COPD and tobacco abuse who presented to [facility] from home via EMS for worsening [...] AND Influenza A/B AND RSV NAAT, Expedited [[id number]] (Abn (more content not included)... Normal [facility] NT-proBNP SerPl-mCncon 11-13 Natriuretic peptide.B prohormone N-Terminal [Mass/Vol] 82743 pg/mL High <125 [facility] Comment on above: Order Comment: Speci men Type: BLOOD SPECIMENOrdering Facility: [facility] Address: [place] [address] Performed By: #### 3 3762-6, 62618-6 ####[facility] LABORATORYCLIA [id number] [place] [address] [place] STAPH AUREUS PCRon 4 S. aureus and MRSA panel EH+probe (Nose) Abnormal Negative [facility] Comment on above: Order Comment: Speci men Type: SWAB OF INTERNAL NOSEOrdering Facility: [facility] Address: [address] [place] [address] Result Comment: Posi tive for Staphylococcus aureus by PCR. Positive for MRSA by PCR Performed By: #### S APCR ####[facility] LABORATORYCLIA [id number] [address] [place] TOX SCREEN ROUT URon 024 Amphetamines Confirm (U) [Mass/Vol] Positive Abnormal Negative [facility] Comment on above: Order Comment: Speci men Type: URINE SPECIMENOrdering Facility: [facility] Address: [address] [place] [address] Result Comment: Cuto ff threshold at 1000 ng/mL. Performed By: #### U TOX2 ####[facility] LABORATORYCLIA [id number] [place] [address] [place] BARBITURATES, URINE Negative Normal Negative [facility] Comment on above: Order Comment: Speci men Type: URINE SPECIMENOrdering Facility: [facility] Address: [address] [place] [address] Result Comment: Cuto ff threshold at 200 ng/mL. Performed By: #### U TOX2 ####[facility] LABORATORYCLIA [id number] [place] [address] [place] BENZODIAZEPINES, UR Negative Normal Negative [facility] Comment on above: Order Comment: Speci men Type: URINE SPECIMENOrdering Facility: [facility] Address: [address] [place] [address] Result Comment: Cuto ff threshold at 200 ng/mL. Performed By: #### U TOX2 ####[facility] LABORATORYCLIA [id number] [place] [address] [place] Cannabinoids Screen Ql (U) Positive Abnormal Negative [facility] Comment on above: Order Comment: Speci men Type: URINE SPECIMENOrdering Facility: [facility] Address: [address] [place] [address] Result Comment: Cuto ff threshold at 50 ng/mL. Performed By: #### U TOX2 ####[facility]ATORYCLIA [id number] [address] [place] Cocaine Ql (U) Positive Abnormal Negative [facility] Comment on above: Order Comment: Speci men Type: URINE SPECIMENOrdering Facility: [facility] Address: [address] [place] [address] Result Comment: Cuto ff threshold at 300 ng/mL. Performed By: #### U TOX2 ####[facility]ATORYCLIA [id number] [address] [place] Ethanol (U) [Mass/Vol] <11 Normal <11 [facility] Comment on above: Order Comment: Speci men Type: URINE SPECIMENOrdering Facility: [facility] Address: [address] [place] [address] Performed By: #### U TOX2 ####[facility] LABORATORYCLIA [id number] [address] Opiates Screen Ql (U) Negative Normal Negative [facility] Comment on above: Order Comment: Speci men Type: URINE SPECIMENOrdering Facility: [facility] Address: [address] [place] [address] Result Comment: Cuto ff threshold at 300 ng/mL. Performed By: #### U TOX2 ####[facility]ATORYCLIA [id number] [address] [place] oxyCODONE cutoff Screen (U) [Mass/Vol] Negative Normal Negative [facility] Comment on above: Order Comment: Speci men Type: URINE SPECIMENOrdering Facility: [facility] Address: [address] [place] [address] Result Comment: Cuto ff threshold at 100 ng/mL. Performed By: #### U TOX2 ####[facility]ORY[facility] [id number] [address] [place] Phencyclidine Ql (U) Negative Normal Negative [facility] Comment on above: Order Comment: Speci men Type: URINE SPECIMENOrdering Facility: [facility] Address: [address] [place] [address] Result Comment: Cuto ff threshold at 25 ng/mL. Performed By: #### U TOX2 ####[facility] LABORATORYCLIA [id number] [place] [address] [place] XR CHEST 1V [...] IMPRESSION: Right basilar patchy opacity favoring infection. Radio Electrician: ROLANDO Transcribe Date/Time: Nov 13 2023 6:19A Dictated by : ENOC KELLER MD This examination was interpreted and the report reviewed and electronically signed by: ENOC KELLER MD on Nov 13 2023 6:19AM EST [id number] Normal [facility] CT Maxillofacial region WO a nd W contrast Antonieta 09-06-2023 Nasal fracture. Report Dictated on Electronically Signed By: Glenn Rodriguez MD Electronically Signed Date/Time: 09/06/2023 4:20 PM [facility] Patient Name: JAVIER DICKSON : 1970 Exam Date/Time: 09/06/2023 15:36 Procedure: CT MAXILLOFACIAL WO IV CONTRAST Ordering Provider: HSATINGS STEPHEN Reason For Exam: nasal facial bones [...] are clear. No mastoiditis. No mandible dislocation. [facility] Glenn Rodriguez MD - 09/06/2023 Patient Name: JAVIER DICKSON : 1970 [id number] Exam Date/Time: 09/06/2023 15:36 Procedure: CT MAXILLOFACIAL [...] Electronically Signed Date/Time: 09/06/2023 4:20 PM EDT [facility] Radiology Study observation (narrative) [facility] CT Maxillofacial region WO a nd W contrast IVOrdered By: Glenn Rodriguez on 09-06-2023 [facility] Work Phone: Basic Metabolic Panelon 09-0 Calcium [Mass/Vol] 9.8 mg/dL Normal 8.4-10.4 [facility] [employer] Comment on above: Performed By: #### L IPD2, BMP3, HA1C2 #### [facility] [employer] [address] [place] [address] Glucose [Mass/Vol] 66 mg/dL Low 70-100 [facility] Comment on above: Performed By: #### L IPD2, BMP3, HA1C2 #### [facility] [employer] [address] [place] [address] Anion gap [Moles/Vol] 7 mmol/L Normal 3-13 [facility] Comment on above: Performed By: #### L IPD2, BMP3, HA1C2 #### [facility] [address] [place], [place] CO2 [Moles/Vol] 32 mmol/L High 22-30 [facility] Comment on above: Performed By: #### L IPD2, BMP3, HA1C2 #### [facility] [address], [place] Creatinine [Mass/Vol] 0.66 mg/dL Normal 0.52-1.25 [facility] Comment on above: Performed By: #### L IPD2, BMP3, HA1C2 #### [facility] [address] [place], [place] eGFR OTHER > 90.0 Normal >60 [facility] Comment on above: Result Comment: KDIG O [...] tubular creatinine secretion. Performed By: #### L IPD2, BMP3, HA1C2 #### [facility] [address], [place] GFR/1.73 sq M.predicted among blacks MDRD (S/P/Bld) [Vol rate/Area] mL/min/{1.73_m2} Normal >60 [facility] Comment on above: Performed By: #### L IPD2, BMP3, HA1C2 #### [facility] [address] [place], [place] Urea nitrogen [Mass/Vol] 11 mg/dL Normal 7-17 [facility] Comment on above: Performed By: #### L IPD2, BMP3, HA1C2 #### [facility] [address] [place] [address] Chloride [Moles/Vol] 100 mmol/L Normal 98-107 [facility] Comment on above: Performed By: #### L IPD2, BMP3, HA1C2 #### [facility] [address], [place] Potassium [Moles/Vol] 4.6 mmol/L Normal 3.5-5.1 [facility] Comment on above: Performed By: #### L IPD2, BMP3, HA1C2 #### [facility] [address] [place] [address] Sodium [Moles/Vol] 139 mmol/L Normal 135-145 [facility] Comment on above: Performed By: #### L IPD2, BMP3, HA1C2 #### [facility] [address] [place], [place] Anion gap [Moles/Vol] 7 mmol/L 3 - 13 mmol/L [facility] Calcium [Mass/Vol] 9.8 mg/dL 8.4 - 10. 4 mg/dL [facility] Chloride [Moles/Vol] 100 mmol/L 98 - 10 7 mmol/L [facility] CO2 [Moles/Vol] 32 mmol/L High 22 - 30 mmol/L [facility] Creatinine [Mass/Vol] 0.66 mg/dL 0.52 - 1.25 mg/dL [facility] eGFR mL/min 60 - P INF mL/min [facility] EGFR IF NonAfrican Scottish mL/min 60 - PINF mL/min [facility] Comment on above: KDIGO guidelines pro vide [...] 66 mg/dL Low 70 - 100 mg/dL [facility] Interpretation and review of laboratory results Abnormal [facility] Potassium [Moles/Vol] 4.6 mmol/L 3.5 - 5.1 mmol/L [facility] Sodium [Moles/Vol] 139 mmol/L 135 - 145 mmol/L [facility] Urea nitrogen (BldV) [Mass/Vol] 11 mg/dL 7 - 17 mg/dL [facility] Hemoglobin A1Con 07-19-2022 Glucose [Mass/Vol] 123 mg/dL Normal [facility] Comment on above: Performed By: #### L IPD2, BMP3, HA1C2 #### [address] [address] HbA1c (Bld) [Mass fraction] 5.9 % Abnormal [facility] Comment on above: Result Comment: Norm al less than 5.7% Prediabetes 5.7% to 6.4% Diabetes 6.5% or higher --HgbA1C levels may not be accurate in patients who have renal disease, received recent blood transfusions, are anemic, or who have dyshemoglobinemia. Performed By: #### L IPD2, BMP3, HA1C2 #### [address] [address] eAG 123 mg/dL [facility] HbA1c (Bld) [Mass fraction] 5.9 % Abnormal [facility] Comment on above: Normal less than 5.7 % Prediabetes 5.7% to 6.4% Diabetes 6.5% or higher --HgbA1C levels may not be accurate in patients who have renal disease, received recent blood transfusions, are anemic, or who have dyshemoglobinemia. Interpretation and review of laboratory results Abnormal [facility] Test Performed by [facility], [address] [place] [address] [facility] LAB [facility] Lipid Panelon 07-19-2022 Chol/HDL 3 Normal [facility] Comment on above: Result Comment: Ref Range: < 3 Low Risk for CHD 3-6 Mod Risk for CHD > 6 High Risk for CHD Performed By: #### L IPD2, BMP3, HA1C2 #### [address] [address] Cholesterol in HDL [Mass/Vol] 54 mg/dL Normal 40-60 [facility] Comment on above: Performed By: #### L IPD2, BMP3, HA1C2 #### [address] [address] Low Density Lipoprotein 95 mg/dL Normal <100 [facility] Comment on above: Performed By: #### L IPD2, BMP3, HA1C2 #### [address] [address] Triglyceride [Mass/Vol] 85 mg/dL Normal <150 [facility] Comment on above: Performed By: #### L IPD2, BMP3, HA1C2 #### [address] [address] Cholesterol [Mass/Vol] 166 mg/dL Normal < 200 [facility] Comment on above: Performed By: #### L IPD2, BMP3, HA1C2 #### [address] [address] Cholesterol [Mass/Vol] 166 mg/dL NINF - 200 mg/dL [facility] Cholesterol in HDL [Mass/Vol] 54 mg/dL 40 - 60 mg/dL [facility] Cholesterol in LDL [Mass/Vol] 95 mg/dL NINF - 100 mg/dL [facility] Cholesterol.total/Susan sterol in HDL [Mass ratio] 3 {ratio} [facility] Comment on above: Ref Range: < 3 Low Risk for CHD 3-6 Mod Risk for CHD > 6 High Risk for CHD Triglyceride [Mass/Vol] 85 mg/dL NINF - 150 mg/dL [facility] No Panel Informationon 07-19 Test Performed by [facility], [address] [place] [id number] [place] [address] LAB [facility] Basic Metabolic Panelon Calcium [Mass/Vol] 8.9 mg/dL Normal 8.4-10.4 [facility] Comment on above: Performed By: #### T ROPN, BMP3 #### [facility] [address], [place] Anion gap [Moles/Vol] 1 mmol/L Low 3-13 [facility] Comment on above: Performed By: #### T TAMMY BMP3 #### [facility] [address], [place] CO2 [Moles/Vol] 32 mmol/L High 22-30 [facility] Comment on above: Performed By: #### T TAMMY BMP3 #### [facility] [address], [place] Creatinine [Mass/Vol] 0.74 mg/dL Normal 0.52-1.25 [facility] Comment on above: Performed By: #### Laura MUNOZ BMP3 #### [facility] [address], [place] eGFR OTHER > 90.0 Normal >60 [facility] Comment on above: Result Comment: KDIG O [...] Performed By: #### Laura MUNOZ BMP3 #### [facility] [address], [place] GFR/1.73 sq M.predicted among blacks MDRD (S/P/Bld) [Vol rate/Area] mL/min/{1.73_m2} Normal >60 [facility] Comment on above: Performed By: #### T TAMMY BMP3 #### [facility] [address] [place] [address] Glucose [Mass/Vol] 98 mg/dL Normal 70-100 [facility] Comment on above: Result Comment: Mode rately hemolysed, interpret with caution. Performed By: #### T TAMMY BMP3 #### [facility] [address] [place] [address] Urea nitrogen [Mass/Vol] 16 mg/dL Normal 7-17 [facility] Comment on above: Performed By: #### T TAMMY BMP3 #### [facility] [address] [place] [address] Chloride [Moles/Vol] 100 mmol/L Normal 98-107 [facility] Comment on above: Performed By: #### T TAMMY BMP3 #### [facility] [address] [place] [address] Potassium [Moles/Vol] 5.5 mmol/L High 3.5-5.1 [facility] Comment on above: Result Comment: Mode rately hemolysed, interpret with caution. Performed By: #### T TAMMY BMP3 #### [facility] [address], [place] Sodium [Moles/Vol] 134 mmol/L Low 135-145 [facility] Comment on above: Performed By: #### Laura MUNOZ BMP3 #### [facility] [address], [place] Anion gap [Moles/Vol] 1 mmol/L Low 3 - 13 mmol/L [facility] Calcium [Mass/Vol] 8.9 mg/dL 8.4 - 10. 4 mg/dL [facility] Chloride [Moles/Vol] 100 mmol/L 98 - 10 7 mmol/L [facility] CO2 [Moles/Vol] 32 mmol/L High 22 - 30 mmol/L [facility] Creatinine [Mass/Vol] 0.74 mg/dL 0.52 - 1.25 mg/dL [facility] EGFR IF NonAfrican Scottish >90.0 >60 mL/min [facility] Comment on above: KDIGO guidelines pro vide [...] - 17 mg/dL [facility] Test Performed by [facility], [address] [place] [id number] [place] [address] LAB [facility] CBC with Auto Differentialon 04-20-2022 Absolute Baso [...] - 10.7 10*3/uL [facility] [id number] [place] [address] LAB [facility] CR Chest Portableon 04-20-20 22 CR Chest Portable Patient Name: JAVIER DICKSON II Diagnostic Radiology ACCESSION EXAM DATE/TIME PROCEDURE ORDERING PROVIDER [id number] 04/20/2022 21:16 EDT CR Chest Portable [id number] JOHN MIXON CPT code 26466 Reason For Exam (CR Chest Portable) Chest [...] Transcribed Date and Time: 04/20/2022 9:28 Normal [facility] ED Provider Noteon ED Provider Note Emergency Department Encounter [facility] EMERGENCY [facility]PT Patient: Javier Dickson II : 1970 Date of Evaluation: 04/20/2022 ED Provider: John Edyd MD Chief Complaint Chief Complaint Patient presents [...] event and has a history of COPD WASHOE I wore appropriate PPE for the entirety of this encounter. Does this patient come from an ECF, SNF, Rehab, Custodial or other Congregate setting: No (If yes to above patient needs a Covid-19 test) Nursing notes reviewed with [facility] social hx and PSH. Javier [...] otherwise acutely negative except as in the WASHOE. Past History Past Medical History: Diagnosis Date [...] and Family: Not on file ? Attends [employer] Services: Not on file ? Active Member [...] Known Allergies Physical Exam ED Triage Vitals [04/20/221924] BP Temp Temp Source Heart Rate Resp [...] results found. Procedures/EKG: [facility] In brief, Javier [...] that he (more content not included)... 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 Attendant: : 1970 Requested By: OJHN EDDY Order Number: [id number] Reading MD: Sherrell Gallagher Measurements Intervals [place] Rate: 74 P: 87 NV: 141 QRS: 56 QRSD: 91 T: 90 QT: 377 QTc: 419 Interpretive Statements Sinus rhythm Low voltage, precordial leads Nonspecific T abnormalities, lateral leads Electronically Signed On 04-20-2022 22:06:41 EDT by Sherrell DIEZ CARDIOLOGY Result, Unknown Provider - 04/20/2022 [facility] Test Date: 2022-04-20 Pat Name: [facility] Department: [facility] Room: [facility] Gender: M Bottling Line Attendant: : 1970 Requested By: JOHN EDDY Order Number: [id number] Reading MD: Sherrell Gallagher Measurements Intervals [place] Rate: 74 P: 87 NV: 141 QRS: 56 QRSD: 91 T: 90 QT: 377 QTc: 419 Interpretive Statements Sinus rhythm Low voltage, precordial leads Nonspecific T abnormalities, lateral leads Electronically Signed On 04-20-2022 22:06:41 EDT by Sherrell HAWLEY Work Phone: EKG 12 Lead - Chest PainOrde red By: Unknown Result on 04-20-2022 [facility] Hemogram w/ Autodiffon 04-20 Abs Baso Cnt 0.1 10*3/uL Normal 0.0-0.2 [facility] Comment on above: Performed By: #### H EMDF #### [facility] [address] [place] [address] Abs Neutrophile Cnt 4.7 10*3/uL Normal 1.8-7.0 [facility] Comment on above: Performed By: #### H EMDF #### [facility] [address] [place] [address] Basophils/100 WBC (Bld) 0.9 % Normal 0.0-2.0 [facility] Comment on above: Performed By: #### H EMDF #### [facility] [address] [place] [address] Eosinophils (Bld) [#/Vol] 0.2 10*3/uL Normal 0.0-0.5 [facility] Comment on above: Performed By: #### H EMDF #### [facility] [address] [place] [address] Eosinophils/100 WBC (Bld) 3.0 % Normal 1.0-6.0 [facility] Comment on above: Performed By: #### H EMDF #### [facility] [address] [place] [address] Erythrocyte distribution width (RBC) [Ratio] 13.5 % Normal 11.5-14.5 [facility] Comment on above: Performed By: #### H EMDF #### [facility] [address], [place] Granulocytes/100 WBC (Bld) 72.1 % Normal 40.0-80.0 [facility] Comment on above: Performed By: #### H EMDF #### [facility] [address], [place] Hematocrit (Bld) [Volume fraction] 40.0 % Normal 40.0-52.0 [facility] Comment on above: Performed By: #### H EMDF #### [place] [address] [address], [place] Hemoglobin (Bld) [Mass/Vol] 13.5 g/dL Normal 13.0-18.0 [facility] Comment on above: Performed By: #### H EMDF #### [place] [address] [address] [place], [place] Lymphocytes (Bld) [#/Vol] 1.0 10*3/uL Normal 1.0-4.3 [facility] Comment on above: Performed By: #### H EMDF #### [place] [address] [address], [place] Lymphocytes/100 WBC (Bld) 15.4 % Low 20.0-40.0 [facility] Comment on above: Performed By: #### H EMDF #### [place] [address] [address], [place] MCH (RBC) [Entitic mass] 30.9 pg Normal 26.0-34.0 [facility] Comment on above: Performed By: #### H EMDF #### [place] [address] [address] [place], [place] MCHC 33.7 % Normal 32.0-36.0 [facility] Comment on above: Performed By: #### H EMDF #### [place] [address] [address], [place] MCV (RBC) [Entitic vol] 91.6 fL Normal 80.0-98.0 [facility] Comment on above: Performed By: #### H EMDF #### [facility] [address], [place] Monocytes (Bld) [#/Vol] 0.6 10*3/uL Normal 0.0-0.8 [facility] Comment on above: Performed By: #### H EMDF #### [facility] [address], [place] Monocytes/100 WBC (Bld) 8.6 % Normal 2.0-10.0 [facility] Comment on above: Performed By: #### H EMDF #### [place] [address] [address], [place] Platelet mean volume (Bld) [Entitic vol] 7.7 fL Normal 7.4-12.4 [facility] Comment on above: Result Comment: MPV is a calculated measurement using platelet volume ratio. Performed By: #### H EMDF #### [place] [address] [address] [place], [place] Platelets (Bld) [#/Vol] 287 10*3/uL Normal 140-440 [facility] Comment on above: Performed By: #### H EMDF #### [place] [address] [address] [place], [place] RBC (Bld) [#/Vol] 4.37 10*6/uL Low 4.40-5.90 [facility] Comment on above: Performed By: #### H EMDF #### [place] [address] [address] [place], [place] WBC (Bld) [#/Vol] 6.5 10*3/uL Normal 3.6-10.7 [facility] Comment on above: Performed By: #### H EMDF #### [place] [address] [address] [place], [place] Troponin Ion 04-20-2022 Troponin I.cardiac [Mass/Vol] ng/mL Normal 0.000-0.034 [facility] Comment on above: Result Comment: Mode rately hemolysed, interpret with caution. . Performed By: #### T ROPN, BMP3 #### [place] [address] [place] [address] Troponin x1on 04-20-2022 Troponin I.cardiac [Mass/Vol] ng/mL 0.000 - 0.034 ng/mL [facility] Comment on above: Moderately hemolysed , interpret with caution. . Test Performed by [facility], [address] [place] [address] [facility] XR CHEST PORTABLEon 04-20-20 Patient Name: JAVIER DICKSON II Diagnostic Radiology ACCESSION EXAM DATE/TIME PROCEDURE ORDERING PROVIDER [id number] 04/20/2022 21:16 EDT CR Chest Portable [id number] -CRESAP JOHN CPT code 06485 Reason For Exam (CR Chest Portable) Chest [...] THOMAS Transcribed Date and Time: 04/20/2022 9:28 [facility] Paula Camacho M D - 04/20/2022 Patient Name: JAVIER DICKSON II Diagnostic Radiology ACCESSION EXAM DATE/TIME PROCEDURE ORDERING PROVIDER [id number] 04/20/2022 21:16 EDT CR Chest Portable [id number] -CRESAP JOHN CPT code 33091 Reason For Exam (CR Chest Portable) Chest [...] THOMAS Transcribed Date and Time: 04/20/2022 9:28 [facility] Work Phone: Radiology Study observation (narrative) [facility] Work Phone: XR CHEST PORTABLEOrdered By: Paula Camacho on 04-20-2022 [facility] Work Phone: XR FOOT 3V AP/LAT/OBL LTon [...] FOOT 3V AP/LAT/OBL RT -- LEFT (accession [id number]), RIGHT (accession [id number]) with 3 views on 3 images Comparison: [...] toes. 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 This test was developed and its performance characteristics determined by [facility]'s [facility] [place]. This test has been authorized by FDA under an Emergency Use Authorization (EUA). This test has been validated in accordance with the FDA's Guidance Document Policy for Diagnostics Testing in Laboratories Certified to Perform High Complexity Testing under CLIA prior to Emergency use Authorization for Coronavirus Disease 2019 during the Public Health Emergency" issued on January 11, 2020. Performing Laboratory: [facility] [employer] [address] [place] [address] Performed By: #### C D19X ####[place] [address] Activated PTTon 06-21-2020 aPTT Coag (Bld) [Time] 28.5 s Normal 23.0-32.4 [facility] Comment on above: Result Comment: Unfr [...] laboratory APTT reagent in use throughout the [facility]. 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 Both posterior cerebral arteries are normal in caliber bilaterally. There is normal opacification of the dural venous sinuses. Bass Viol Repairer (topogram) images: Unremarkable. IMPRESSION: NORMAL NECK AND INTRACRANIAL CTA. NORMAL APPEARANCE OF THE RIGHT INTERNAL JUGULAR VEIN. MODERATE AMOUNT OF SUBCUTANEOUS GAS THROUGHOUT THE RIGHT NECK BUT NO EVIDENCE OF A FOCAL HEMATOMA OR RADIOPAQUE FOREIGN BODY. 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 Both posterior cerebral arteries are normal in caliber bilaterally. There is normal opacification of the dural venous sinuses. Bass Viol Repairer (topogram) images: Unremarkable. IMPRESSION: NORMAL NECK AND INTRACRANIAL CTA. NORMAL APPEARANCE OF THE RIGHT INTERNAL JUGULAR VEIN. MODERATE AMOUNT OF SUBCUTANEOUS GAS THROUGHOUT THE RIGHT NECK BUT NO EVIDENCE OF A FOCAL HEMATOMA OR RADIOPAQUE FOREIGN BODY. Radio Electrician: [facility] Transcribe Date/Time: Jun 21 2020 12:45P Dictated by : TRUNG WORLEY MD This examination was interpreted and the report reviewed and electronically signed by: TRUNG WORLEY MD on Jun 21 2020 12:49PM EST Normal [facility] Comprehensive Metabolic Pane cliff 06-21-2020 Albumin [Mass/Vol] 4.3 g/dL Normal 3.9-4.9 [facility] Comment on above: Performed By: #### C MP #### [place] [address] ALP [Catalytic activity/Vol] 101 U/L Normal 38-113 [facility] Comment on above: Performed By: #### C MP #### [address] [address] ALT [Catalytic activity/Vol] 20 U/L Normal 10-54 [facility] Comment on above: Performed By: #### C MP #### [address] [address] Anion gap [Moles/Vol] 9 mmol/L Normal 9-18 [facility] Comment on above: Performed By: #### C MP #### [address] [address] AST [Catalytic activity/Vol] 25 U/L Normal 14-40 [facility] Comment on above: Performed By: #### C MP #### [address] [address] Bilirubin [Mass/Vol] 0.2 mg/dL Normal 0.2-1.3 [facility] Comment on above: Performed By: #### C MP #### [address] [address] Calcium [Mass/Vol] 9.1 mg/dL Normal 8.5-10.2 [facility] Comment on above: Performed By: #### C MP #### [facility] 1 [place], [place] [address] Chloride [Moles/Vol] 103 mmol/L Normal 97-105 [facility] Comment on above: Performed By: #### C MP #### [facility] 1 [place], [place] [address] CO2 Blood 28 mmol/L Normal 22-30 [facility] Comment on above: Performed By: #### C MP #### [facility] 1 [place], [place] [address] Creatinine [Mass/Vol] 0.90 mg/dL Normal 0.73-1.22 [facility] Comment on above: Performed By: #### C MP #### [facility] 1 [place], [place] [address] Glucose [Mass/Vol] 107 mg/dL High 74-99 [facility] Comment on above: Result Comment: The [place] Diabetes Association (ADA) provides guidance for cutoff [...] Standards of Medical Care in Diabetes 2016; [employer] Association. Diabetes Care. 2016;39(Suppl 1). Performed By: #### C MP #### [facility] 1 [place], [place] [address] Potassium [Moles/Vol] 4.0 mmol/L Normal 3.7-5.1 [facility] Comment on above: Performed By: #### C MP #### [facility] 1 [place], [place] [address] Protein [Mass/Vol] 6.6 g/dL Normal 6.3-8.0 [facility] Comment on above: Performed By: #### C MP #### [facility] 1 [place] [address] Sodium [Moles/Vol] 140 mmol/L Normal 136-144 [facility] Comment on above: Performed By: #### C MP #### [facility] 1 [place] [address] Urea nitrogen [Mass/Vol] 15 mg/dL Normal 9-24 [facility] Comment on above: Performed By: #### C MP #### [facility] 1 [place] [address] Hemogramon 06-21-2020 Erythrocyte distribution width (RBC) [Ratio] 12.1 % Normal 11.6-14.4 [facility] Comment on above: Performed By: #### C BC1 #### [facility] 1 [place] [address] Hematocrit (Bld) [Volume fraction] 39.4 % Low 40.1-51.0 [facility] Comment on above: Performed By: #### C BC1 #### [facility] 1 [place] [address] Hemoglobin (Bld) [Mass/Vol] 13.2 g/dL Low 13.7-17.5 [facility] Comment on above: Performed By: #### C BC1 #### [facility] 1 [place] [address] MCH (RBC) [Entitic mass] 30.8 pg Normal 25.7-32.2 [facility] Comment on above: Performed By: #### C BC1 #### [facility] 1 [place] [address] MCHC (RBC) [Mass/Vol] 33.5 % Normal 32.3-36.5 [facility] Comment on above: Performed By: #### C BC1 #### [facility] 1 [place] [address] MCV (RBC) [Entitic vol] 92.1 fL Normal 83.2-95.6 [facility] Comment on above: Performed By: #### C BC1 #### [facility] 1 [place] [address] Platelet mean volume (Bld) [Entitic vol] 9.4 fL Normal 8.7-12.0 [facility] Comment on above: Performed By: #### C BC1 #### [facility] 1 [place], [place] [address] Platelets (Bld) [#/Vol] 317 thou/cmm Normal 141-365 [facility] Comment on above: Performed By: #### C BC1 #### [place] [id number] RBC (Bld) [#/Vol] 4.28 mil/cmm Low 4.63-6.08 [facility] Comment on above: Performed By: #### C BC1 #### [place] [address] RDW SD 40.9 fl Normal 36.1-45.8 [facility] Comment on above: Performed By: #### C BC1 #### [place] [id number] WBC (Bld) [#/Vol] 6.63 thou/cmm Normal 4.23-9.07 [facility] Comment on above: Performed By: #### C BC1 #### [place] [id number] Lipase Bloodon 06-21-2020 Lipase Blood 36 U/L Normal 16-61 [facility] Comment on above: Performed By: #### L IP #### [place] [address] MDRD GFRon 06-21-2020 GFR/1.73 sq M predicted among non-blacks MDRD (S/P/Bld) [Vol rate/Area] mL/min/{1.73_m2} Normal >60mL/min/1. 73m2 [facility] Comment on above: Result Comment: If t he patient is , multiply the result by 1.210. Performed By: #### G FR #### [place] [address] Protimeon 06-21-2020 INR Coag (PPP) [Relative time] 0.95 {INR} Normal 0.90-1.30 [facility] Comment on above: Result Comment: [place]elita min K Antagonist (VKA) Therapeutic Range: INR 2 to 3 (Target INR of 2.5) Note: For patients treated with VKA drugs, such as warfarin, the [employer] 2012 Guideline recommends [...] to 3.5 target INR of 3). Shay GH, et al. Chest 2012; 141:7S-47S Calvin RA, et al. [facility] 2017; 70: 252-289 Performed By: #### P T #### [place] [address] PT Coag (PPP) [Time] 10.3 s Normal 9.7-13.0 [facility] Comment on above: Performed By: #### P T #### [place] [address] Type and Screenon 06-21-2020 ABO group Nom (Bld) O Normal [facility] Comment on above: Performed By: #### T &S #### [place] [address] Comment See Below Normal [facility] Comment on above: Result Comment: Scre en &/or Xmatch expires in 3 days at 12 midnight. Redraw patient at that time. Performed By: #### T &S #### [place] [address] RH Type Positive Normal [facility] Comment on above: Performed By: #### T &S #### [place] [address] Urine Drug Screenon 06-21-20 20 Urine Alcohol <11 Normal 0-11 [facility] Comment on above: Performed By: #### U DRG3 ####[facility] [place], [place] [address] Urine Amphetamine see below Abnormal NEGATIVE [facility] Comment on above: Result Comment: PRES UMPTIVE POSITIVE Performed By: #### U DRG3 ####[facility] [place], [place] [address] Urine Barbiturates Negative Normal NEGATIVE [facility] Comment on above: Performed By: #### U DRG3 ####[facility] [place], [place] [address] Urine Benzodiazepine Negative Normal NEGATIVE [facility] Comment on above: Performed By: #### U DRG3 ####[facility] [place], [place] [address] Urine Cocaine Metab Negative Normal NEGATIVE [facility] Comment on above: Performed By: #### U DRG3 ####[facility] [place], [place] [address] Urine Opiates Negative Normal NEGATIVE [facility] Comment on above: Performed By: #### U DRG3 ####[facility] [place], [place] [address] Urine Oxycodone Negative Normal NEGATIVE [facility] Comment on above: Performed By: #### U DRG3 ####[facility] [place], [place] [address] Urine PCP Negative Normal NEGATIVE [facility] Comment on above: Result Comment: Test Cutoff [...] the same specimen through the laboratory at ([phone]) if contacted within 48 hours of initial 1. Substance Abuse and Mental Health Services Administration (2012). Clinical Drug Testing in Primary Care Technical Assistance Publication Series 32. Department of Health and Human Services, [place], p.10. Performed By: #### U DRG3 ####[facility] [place], [place] [address] Urine THC Negative Normal NEGATIVE [facility] Comment on above: Performed By: #### U DRG3 ####[facility] [place], [place] [address] XR CHEST 1V FRONTALon 2019 XR CHEST 1V FRONTAL Final Report DATE OF EXAM: Jun 21 2020 11:34AM AKX [id number] - XR CHEST 1V FRONTAL / PROCEDURE REASON: Chest trauma, blunt Physician Interpretation EXAMINATION: CHEST RADIOGRAPH (SINGLE VIEW AP OR PA) CLINICAL HISTORY: Chest trauma, blunt MQ: [id number] Comparison: None RESULT: Lines, tubes, and devices: dulser leads overlie the thorax. Lungs and pleura: No consolidation. No lung mass. No pleural effusion. Cardiomediastinal silhouette: Normal cardiomediastinal silhouette. Other: Osseous structures are unremarkable. IMPRESSION: No acute radiographic abnormality. Radio Electrician: PSCB Transcribe Date/Time: Jun 21 2020 11:45A Dictated by : SATHISH WOLFF MD This examination was interpreted and the report reviewed and electronically signed by: SATHISH WOLFF MD on Jun 21 2020 11:46AM EST Normal [facility] Basic Metabolic Panelon 11-0 Anion gap [Moles/Vol] 4 Normal [facility] Comment on above: Performed By: #### B MP3, PT, HEMDF #### [facility] [address] [place] [address] Calcium [Mass/Vol] 8.8 mg/dL Normal 8.4-10.4 [facility] Comment on above: Performed By: #### B MP3, PT, HEMDF #### [facility] [address] [place] [address] CO2 [Moles/Vol] 30 mmol/L Normal 22-30 [facility] Comment on above: Performed By: #### B MP3, PT, HEMDF #### [facility] [address] [place] [address] Creatinine [Mass/Vol] 0.68 mg/dL Normal 0.52-1.25 [facility] Comment on above: Performed By: #### B MP3, PT, HEMDF #### [facility] [address] [place] [address] GFR/1.73 sq M predicted among blacks MDRD (S/P/Bld) [Vol rate/Area] mL/min/{1.73_m2} Normal >60 [facility] Comment on above: Performed By: #### B MP3, PT, HEMDF #### [facility] [address] [place] [address] GFR/1.73 sq M predicted among non-blacks MDRD (S/P/Bld) [Vol rate/Area] mL/min/{1.73_m2} Normal >60 [facility] Comment on above: Result Comment: Sour ce- MDRD equation with creatinine calibration to IDMS(NKDEP) eGFR not recommended for drug dose adjustment Performed By: #### B MP3, PT, HEMDF #### [facility] [address] [place] [address] Glucose [Mass/Vol] 89 mg/dL Normal 70-100 [facility] Comment on above: Performed By: #### B MP3, PT, HEMDF #### [facility] [address] [place] [address] Urea nitrogen [Mass/Vol] 10 mg/dL Normal 7-20 [facility] Comment on above: Performed By: #### B MP3, PT, HEMDF #### [facility] [address] [place] [address] Chloride [Moles/Vol] 104 mmol/L Normal 98-107 [facility] Comment on above: Performed By: #### B MP3, PT, HEMDF #### [facility] [address] [place] [address] Potassium [Moles/Vol] 4.3 mmol/L Normal 3.5-5.1 [facility] Comment on above: Performed By: #### B MP3, PT, HEMDF #### [facility] [address] [place] [address] Sodium [Moles/Vol] 138 mmol/L Normal 135-145 [facility] Comment on above: Performed By: #### B MP3, PT, HEMDF #### [facility] [address] [place] [address] Anion gap [Moles/Vol] 4 mmol/L [place], [place] Calcium [Mass/Vol] 8.8 mg/dL 8.4 - 10. 4 mg/dL [place], [place] Chloride [Moles/Vol] 104 mmol/L 98 - 10 7 mmol/L [place] CO2 [Moles/Vol] 30 mmol/L 22 - 30 mmol/L [place] Creatinine [Mass/Vol] 0.68 mg/dL 0.52 - 1.25 mg/dL [place] EGFR IF NonAfrican Scottish >60.0 >60 mL/min [place] Comment on above: Source- MDRD equatio n with creatinine calibration to IDMS(NKDEP) eGFR not recommended for drug dose adjustment GFR/1.73 sq M predicted among blacks MDRD (S/P/Bld) [Vol rate/Area] mL/min/{1.73_m2} >60 mL/min [place] Glucose [Mass/Vol] 89 mg/dL 70 - 100 mg/dL [place] Potassium [Moles/Vol] 4.3 mmol/L 3.5 - 5.1 mmol/L [place] Sodium [Moles/Vol] 138 mmol/L 135 - 145 mmol/L [place] Urea nitrogen [Mass/Vol] 10 mg/dL 7 - 20 mg/dL [place] Test Performed by [facility], [address], [place], [place] [address] [place], [place] CR Shoulder 2+ Views Righton 09-18-2019 CR Shoulder 2+ Views Right Patient Name: JAVIER DICKSON II Diagnostic Radiology Exam Date/Time 09/18/2019 09:55:12 EST Exam CR Shoulder 2+ Views Right Ordering Physician MD NANNETTE, CAM Accession Number [id number] CPT4 Codes 10131 () Reason For Exam pain Report RIGHT [...] Transcribed Date and Time: 09/18/2019 9:56 Normal [facility] CT Head WO Contraston 2018 Patient Name: JAVIER DICKSON II ---CT--- Exam Date/Time 09/18/2019 10:15:[address] Head or Brain w/o Contrast Ordering Physician MD NANNETTE, CAM Accession Number [id number] CPT4 Codes 10126 () Reason For Exam trauma Report CT [...] R Transcribed Date and Time: 09/18/2019 10:31 [place], [place], [facility] Incoming Radiology Results From [facility] - 09/18/2019 10:32 AM EST Patient Name: JAVIER DICKSON II ---CT--- Exam Date/Time 09/18/2019 10:15:[address] Head or Brain w/o Contrast Ordering Physician MD NANNETTE, CAM Accession Number [id number] CPT4 Codes 32461 () Reason For Exam trauma Report CT [...] R Transcribed Date and Time: 09/18/2019 10:31 [place], [place] CT Head or Brain w/o Contras ton 09-18-2019 CT Head or Brain w/o Contrast Patient Name: JAVIER DICKSON II CT Exam Date/Time 09/18/2019 10:15:[address] Head or Brain w/o Contrast Ordering Physician MD NANNETTE, CAM Accession Number [id number] CPT4 Codes 79311 () Reason For Exam trauma Report CT [...] Transcribed Date and Time: 09/18/2019 10:31 Normal [facility] Hemogram (CBC) w/Auto Diffon 09-18-2019 Absolute Baso # 0.1 10*3/uL 0 - 0.2 10*3/uL [place], [place] Absolute Neut # 4.5 10*3/uL 1.8 - 7 10*3/uL [place] Basophils/100 WBC (Bld) 0.9 % 0 - 2 % [place] Eosinophils (Bld) [#/Vol] 0.2 10*3/uL 0 - 0.5 10*3/uL [place] Eosinophils/100 WBC (Bld) 3.8 % 1 - 6 % [place] Erythrocyte distribution width (RBC) [Ratio] 13.0 % 11.5 - 14.5 % [place] Granulocytes/100 WBC (Bld) 69.7 % 40 - 80 % [place] Hematocrit (Bld) [Volume fraction] 40.6 % 40 - 52 % [place] Hemoglobin (Bld) [Mass/Vol] 13.6 g/dL 13 - 18 g/dL [place] Interpretation and review of laboratory results Abnormal [place] Lymphocytes (Bld) [#/Vol] 1.1 10*3/uL 1 - 4.3 10*3/uL [place] Lymphocytes/100 WBC (Bld) 16.3 % Low 20 - 40 % [place] MCH (RBC) [Entitic mass] 30.8 pg 26 - 34 pg [place] MCHC (RBC) [Mass/Vol] 33.6 % 32 - 36 % [place], [place] MCV (RBC) [Entitic vol] 91.5 fL 80 - 98 fL [place], [place] Monocytes (Bld) [#/Vol] 0.6 10*3/uL 0 - 0.8 10*3/uL [place] Monocytes/100 WBC (Bld) 9.3 % 2 - 10 % [place], [place] Platelet mean volume (Bld) [Entitic vol] 7.0 fL Low 7.4 - 10.4 fL [place] Platelets (Bld) [#/Vol] 329 10*3/uL 140 - 440 10*3/uL [place] RBC (Bld) [#/Vol] 4.43 10*6/uL 4.4 - 5.9 10*6/uL [place] WBC (Bld) [#/Vol] 6.5 10*3/uL 3.6 - 10.7 10*3/uL [place] Test Performed by [facility], [address] [place] [address] [place], [place] Hemogram w/ Autodiffon 09-18 Abs Baso Cnt 0.1 10*3/uL Normal 0.0-0.2 [facility] Comment on above: Performed By: #### B MP3, PT, HEMDF #### [facility] [address] [place] [address] Abs Neutrophile Cnt 4.5 10*3/uL Normal 1.8-7.0 [facility] Comment on above: Performed By: #### B MP3, PT, HEMDF #### [facility] [address] [place] [address] Basophils/100 WBC (Bld) 0.9 % Normal 0.0-2.0 [facility] Comment on above: Performed By: #### B MP3, PT, HEMDF #### [facility] [address] [place] [address] Eosinophils (Bld) [#/Vol] 0.2 10*3/uL Normal 0.0-0.5 [facility] Comment on above: Performed By: #### B MP3, PT, HEMDF #### [facility] [address] [place] [address] Eosinophils/100 WBC (Bld) 3.8 % Normal 1.0-6.0 [facility] Comment on above: Performed By: #### B MP3, PT, HEMDF #### [facility] [address] [place] [address] Erythrocyte distribution width (RBC) [Ratio] 13.0 % Normal 11.5-14.5 [facility] Comment on above: Performed By: #### B MP3, PT, HEMDF #### [facility] [address] [place] [address] Granulocytes/100 WBC (Bld) 69.7 % Normal 40.0-80.0 [facility] Comment on above: Performed By: #### B MP3, PT, HEMDF #### [facility] [address] [place] [address] Hematocrit (Bld) [Volume fraction] 40.6 % Normal 40.0-52.0 [facility] Comment on above: Performed By: #### B MP3, PT, HEMDF #### [facility] [address] [place] [address] Hemoglobin (Bld) [Mass/Vol] 13.6 g/dL Normal 13.0-18.0 [facility] Comment on above: Performed By: #### B MP3, PT, HEMDF #### [facility] [address] [place] [address] Lymphocytes (Bld) [#/Vol] 1.1 10*3/uL Normal 1.0-4.3 [facility] Comment on above: Performed By: #### B MP3, PT, HEMDF #### [facility] [address] [place] [address] Lymphocytes/100 WBC (Bld) 16.3 % Low 20.0-40.0 [facility] Comment on above: Performed By: #### B MP3, PT, HEMDF #### [facility] [address] [place] [address] MCH (RBC) [Entitic mass] 30.8 pg Normal 26.0-34.0 [facility] Comment on above: Performed By: #### B MP3, PT, HEMDF #### [facility] [address] [place] [address] MCHC (RBC) [Mass/Vol] 33.6 % Normal 32.0-36.0 [facility] Comment on above: Performed By: #### B MP3, PT, HEMDF #### [facility] [address] [place] [address] MCV (RBC) [Entitic vol] 91.5 fL Normal 80.0-98.0 [facility] Comment on above: Performed By: #### B MP3, PT, HEMDF #### [facility] [address] [place] [address] Monocytes (Bld) [#/Vol] 0.6 10*3/uL Normal 0.0-0.8 [facility] Comment on above: Performed By: #### B MP3, PT, HEMDF #### [facility] [address] [place] [address] Monocytes/100 WBC (Bld) 9.3 % Normal 2.0-10.0 [facility] Comment on above: Performed By: #### B MP3, PT, HEMDF #### [facility] [address] [place] [address] Platelet mean volume (Bld) [Entitic vol] 7.0 fL Low 7.4-10.4 [facility] Comment on above: Performed By: #### B MP3, PT, HEMDF #### [facility] [address] [place] [address] Platelets (Bld) [#/Vol] 329 10*3/uL Normal 140-440 [facility] Comment on above: Performed By: #### B MP3, PT, HEMDF #### [facility] [address] [place] [address] RBC (Bld) [#/Vol] 4.43 10*6/uL Normal 4.40-5.90 [facility] Comment on above: Performed By: #### B MP3, PT, HEMDF #### [facility] [address] [place] [address] WBC (Bld) [#/Vol] 6.5 10*3/uL Normal 3.6-10.7 [facility] Comment on above: Performed By: #### B MP3, PT, HEMDF #### [facility] [address] [place] [address] Prothrombin Timeon 9 INR Coag (PPP) [Relative time] 0.9 Normal 0.9-1.1 [facility] Comment on above: Result Comment: Sudhakar mmended [...] By: #### B MP3, PT, HEMDF #### [facility] [address] [place] [address] PT Coag (PPP) [Time] 9.5 s Normal 9.0-12.0 [facility] Comment on above: Result Comment: . Performed By: #### B MP3, PT, HEMDF #### [facility] [address] [place] [address] Protime-INRon 09-18-2019 INR Coag (PPP) [Relative time] 0.9 {INR} [facility] [place], [place] Comment on above: Recommended Anticoag ulant Therapy: [...] [Time] 9.5 s 9 - 12 s [place], [place] Comment on above: . Test Performed by [facility], [address], [place], [place] [address] [place] XR Shoulder Right 2 VWon [place], [facility] Incoming Radiology Results From [facility] - 09/18/2019 9:56 AM EST Patient Name: JAVIER DICKSON II ---Diagnostic Radiology--- Exam Date/Time 09/18/2019 09:55:12 EST Exam CR Shoulder 2+ Views Right Ordering Physician MD NANNETTE, CAM Accession Number [id number] CPT4 Codes 66165 () Reason For Exam pain Report RIGHT [...] R Transcribed Date and Time: 09/18/2019 9:56 [place] Patient Name: JAVIER DICKSON II ---Diagnostic Radiology--- Exam Date/Time 09/18/2019 09:55:12 EST Exam CR Shoulder 2+ Views Right Ordering Physician MD NANNETTE, CAM Accession Number [id number] CPT4 Codes 32617 () Reason For Exam pain Report RIGHT [...] R Transcribed Date and Time: 09/18/2019 9:56 [place] Vital Signs Date Time Vital Sign Value Performing Clinician Facility 08-14-2024 07:00-0400 Heart rate 83 /min Emely Amin MD Work Phone: [facility] 08-14-2024 07:00-0400 SaO2% (BldA) [Mass fraction] 97 % Emely Amin MD Work Phone: [facility] Comment on above: RA 06-27-2024 12:39-0400 Body height 182.9 cm Paula Raphael MD Work Phone: [facility] 06-27-2024 12:39-0400 Body mass index (BMI) [Ratio] 21.02 kg/m2 Paula Raphael MD Work Phone: [facility] 06-27-2024 12:39-0400 Body weight 70.31 kg Paula Raphael MD Work Phone: [facility] 04-29-2024 12:55-0400 Body height 182.9 cm Emely Amin MD Work Phone: [facility] 04-29-2024 12:55-0400 Diastolic blood pressure 77 mm[Hg] Emely Amin MD Work Phone: [facility] 04-29-2024 12:55-0400 Heart rate 72 /min Emely Amin MD Work Phone: [facility] 04-29-2024 12:55-0400 SaO2% (BldA) [Mass fraction] 86 % Emely Amin MD Work Phone: [facility] 04-29-2024 12:55-0400 Systolic blood pressure 119 mm[Hg] Emely Amin MD Work Phone: [facility] 09-06-2023 15:19-0400 Body temperature 98.01 [degF] Kelsi Batista MD Work Phone: [facility] 09-06-2023 15:19-0400 Diastolic blood pressure 81 mm[Hg] Kelsi Batista MD Work Phone: [facility] 09-06-2023 15:19-0400 Heart rate 91 /min Kelsi Batista MD Work Phone: [facility] 09-06-2023 15:19-0400 Respiratory rate 17 /min Kelsi Batista MD Work Phone: [facility] 09-06-2023 15:19-0400 SaO2% (BldA) [Mass fraction] 95 % Kelsi Batista MD Work Phone: [facility] 09-06-2023 15:19-0400 Systolic blood pressure 117 mm[Hg] Kelsi Batista MD Work Phone: [facility] 04-20-2022 19:25-0400 Body height 182.9 cm John Eddy MD Work Phone: [facility] 04-20-2022 19:25-0400 Body mass index (BMI) [Ratio] 21.02 kg/m2 John Eddy MD Work Phone: [facility] 04-20-2022 19:25-0400 Body temperature 98.1 [degF] John Eddy MD Work Phone: [facility] 04-20-2022 19:25-0400 Body weight 70.31 kg John Eddy MD Work Phone: [facility] 04-20-2022 19:25-0400 Diastolic blood pressure 69 mm[Hg] John Eddy MD Work Phone: [facility] 04-20-2022 19:25-0400 Heart rate 82 /min John Eddy MD Work Phone: [facility] 04-20-2022 19:25-0400 Respiratory rate 16 /min John Eddy MD Work Phone: [facility] 04-20-2022 19:25-0400 SaO2% (BldA) [Mass fraction] 95 % John Eddy MD Work Phone: [facility] 04-20-2022 19:25-0400 Systolic blood pressure 101 mm[Hg] John Eddy MD Work Phone: [facility] 09-18-2019 09:39-0500 Body Temperature 97.9 [degF] [place], [place] 09-18-2019 09:39-0500 BP Diastolic 90 mm[Hg] [place] 09-18-2019 09:39-0500 BP Systolic 141 mm[Hg] [place] 09-18-2019 09:39-0500 Pulse (Heart Rate) 90 /min [place], [place] 09-18-2019 09:39-0500 Pulse Oximetry 97 % [place] 09-18-2019 09:39-0500 Respiratory Rate 16 /min [place] Encounters Encounter Date Encounter Type Care Provider Facility Start: 07-24-2025 End: 07-24-2025 ambulatory Paula JALLOH Facility:[facility] Start: 07-02-2025 ambulatory Paula JALLOH Facil ity:[facility] Start: 06-02-2025 ambulatory Paula JALLOH Facil ity:[facility] Start: 01-31-2025 End: 01-31-2025 ambulatory Paula JALLOH [facility] Work Phone: Start: 01-31-2025 End: 01-31-2025 Departed Referred Paula Raphael [facility] [address] Start: 01-31-2025 End: 01-31-2025 ambulatory Paula JALLOH Facility:[facility] Start: 10-03-2024 End: 10-03-2024 ambulatory Paula JALLOH Facility:[facility] Start: 09-16-2024 End: 09-16-2024 ambulatory Paula JALLOH Facility:[facility] Start: 08-14-2024 End: 08-14-2024 Subsequent hospital visit by physician Emely Amin MD Work Phone: [facility] PFT Comment on above: Chronic respiratory failure with hypoxia (HCC) Start: 08-14-2024 End: 08-14-2024 ambulatory [facility] Start: 06-27-2024 End: 06-27-2024 Subsequent hospital visit by physician Paula Raphael MD Work Phone: [facility] Comment on above: Mastodynia Start: 06-27-2024 End: 06-27-2024 ambulatory [facility] Start: 06-25-2024 End: 06-25-2024 ambulatory [facility] Start: 04-29-2024 End: 04-29-2024 Office outpatient new 45 minutes Emely Amin MD Work Phone: [facility] Pulmonary Comment on above: Chronic respiratory failure with hypoxia (HCC) (Primary Dx); Chronic obstructive pulmonary disease, unspecified COPD type (HCC); Bullous emphysema (HCC); Cigarette nicotine dependence without complication Start: 04-29-2024 End: 04-29-2024 ambulatory [facility] Start: 02-08-2024 End: 02-08-2024 ambulatory [facility] Work Phone: Start: 02-08-2024 End: 02-08-2024 [facility]ed [facility] [address] Start: 01-12-2024 Telephone encounter Emily burton Personnel Security Specialist [facility] Comment on above: Pulm Rehab (Letter S ent) Start: 01-09-2024 End: 01-09-2024 ambulatory [facility] Work Phone: Start: 01-09-2024 End: 01-09-2024 Departed [facility] [address] Start: 01-09-2024 Registered Referred [facility] [address] Start: 01-08-2024 End: 01-08-2024 ambulatory [facility] Work Phone: Start: 01-08-2024 End: 01-08-2024 Departed [facility] [address] Start: 01-01-2024 Telephone encounter Beto grant Work Phone: [facility] Care Comment on above: Home Care (Confirmat ion Call ) Orders Start: 12-28-2023 Telephone encounter Maykel manrique LPN Work Phone: [facility] Comment on above: Home Care (MD to joanne lozada) Other Start: 12-27-2023 End: 01-05-2024 Evaluation and management of inpatient [facility] Facility:[place] Start: 12-25-2023 Telephone encounter Alcon wong MD Work Phone: [facility]monary Care Comment on above: 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) Start: 11-28-2023 ambulatory [facility] [place] Start: 11-27-2023 [facility] [place] Start: 11-22-2023 Telephone encounter Kelsi chambers MD Work Phone: [facility] Clinical Communication Comment on above: update on patient Start: 11-13-2023 End: 11-23-2023 Evaluation and management of inpatient DAVION IFEANYI Facility:[place] Start: 09-06-2023 End: 09-06-2023 Emergency department patient visit Kelsi Batista MD Work Phone: [facility] EMERGENCY [facility]PT Comment on above: Insect bite of head, unspecified part, initial encounter (Primary Dx); Chronic obstructive pulmonary disease, unspecified COPD type (HCC) Start: 08-13-2022 ambulatory KELSI BATISTA [facility] Start: 08-03-2022 ambulatory KELSI BATISTA [facility] Start: 07-19-2022 ambulatory KELSI BATISTA [facility] Start: 07-19-2022 End: 07-19-2022 Subsequent hospital visit by physician Pat Lee DO Work Phone: [facility] LAB USE ONLY Comment on above: Screening for condit ion Start: 04-20-2022 End: 04-21-2022 Emergency department patient visit PCP No [facility] Start: 04-20-2022 End: 04-20-2022 Emergency department patient visit John Eddy MD Work Phone: [facility] Emergency Dept Comment on above: COPD exacerbation (H CC) (Primary Dx); Shortness of breath Start: 06-23-2020 End: 06-23-2020 Letter encounter Blessing Aquino Work Phone: [facility] SUR[facility]ERY [facility] Start: 09-18-2019 End: 09-18-2019 Emergency department patient visit Cam Bowen Nannette Work Phone: [facility] ED Comment on above: Injury of head, [...] Ct maxillofacial w/o contrast material Danilo Hastings TAR HEAT EXCHANGER CLEANER - BLOWER ROOM ATTENDANT Work Phone: Start: 07-19-2022 Vaccine refused by patient COVID-19 vaccination refused Pat Lee DO Work Phone: Start: 07-19-2022 Basic metabolic [...] above: Performed By: #### T &S #### [place] [id number] Start: 09-18-2019 Ct head/brain w/o contrast material Cam Carias Work Phone: Start: 09-18-2019 Basic metabolic pane l calcium total Cam Carias Work Phone: Start: 09-18-2019 Blood count complete auto&auto difrntl wbc Cam Carias Work Phone: Start: 09-18-2019 Prothrombin time Cam Carias Work Phone: Start: 09-18-2019 Radex shoulder compl ete minimum 2 views Cam Carias Work Phone: Plan of Treatment Date Care Activity Detail Author Start: 2031 RSV Immunization age d 60 or older (1 - 1-dose 60+ series) RSV Immunization aged 60 or older (1 - 1-dose 60+ series) [facility] Start: 09-18-2029 DTaP/Tdap/Td vaccine (2 - Td or Tdap) DTaP/Tdap/Td vaccine (2 - Td or Tdap) [facility] Start: 09-18-2029 DTaP/Tdap/Td vaccine (2 - Td) DTaP/Tdap/Td vaccine (2 - Td) [place] Start: 09-18-2029 DTaP/Tdap/Td Vaccine s (2 - Td or Tdap) DTaP/Tdap/Td Vaccines (2 - Td or Tdap) [facility] Start: 09-18-2029 Urine microalbumin profile DTa P,Tdap,Td Vaccine (2 - Td or Tdap) [facility] Start: 07-19-2027 Lipid panel [facility] Start: 12-30-2026 Diabetes Screening Diabetes Screenin g [facility] Start: 08-14-2024 End: 08-14-2024 Patient encounter procedure 08/14/2024 7:30 AM EDT Appointment [facility] [address] [place] [address] Emely Amin MD [address] [address] [facility] Start: 07-14-2024 COVID-19 Vaccine ( season) COVID-19 Vaccine () [facility] Start: 07-14-2024 Influenza vaccination S [facility] Start: 06-04-2024 End: 06-04-2024 Patient encounter procedure [facility] Start: 04-29-2024 End: 04-29-2025 Complete PFT pre and post bronchodilator Complete PFT pre and post bronchodilator PFT Routine Chronic respiratory failure with hypoxia (HCC) Expected: 04/29/2024 (Approximate), Expires: 04/29/2025 [facility] Work Phone: Comment on above: Expected: 04/29/2024 (Approximate), Expires: 04/29/2025 Start: 02-13-2024 End: 01-30-2025 CT Chest W contrast IV CT CHEST W IVCON Radiology Routine Localized enlarged lymph nodes Expected: 02/13/2024, Expires: 01/30/2025 [facility] Work Phone: Comment on above: Expected: 02/13/2024 , Expires: 01/30/2025 Start: 11-13-2023 Depression Assessment Depression Ass essment [facility] Start: 07-19-2023 Creatinine measurement Creatinine Le keely [facility] Start: 09-06-2023 Diabetes mellitus screening Diabetes Screening [facility]: 07-19-2023 Hemoglobin A1c measurement A1C test (Diabetic or Prediabetic) [facility] Start: 07-19-2023 Potassium measurement Potassium Bje l [facility] Start: 07-14-2023 COVID-19 Vaccine ( season) COVID-19 Vaccine ( season) [facility] Start: 07-14-2023 Influenza vaccination Influenza Vacc ine (#1) [facility] Start: 08-11-2022 End: 08-11-2022 Patient encounter procedure 08/11/2022 Office Visit [facility] Kelsi Batista MD [address] [place], [place] [id number] [facility] Start: 08-03-2022 End: 08-03-2022 Patient encounter procedure 08/03/2022 Appointment Radiology [facility] [address] [facility] Start: 07-14-2022 Influenza vaccination S [facility] Start: 2021 Shingles vaccine (1 of 2) Patel gles vaccine (1 of 2) [facility] Start: 2021 Shingrix Vaccine (1 of 2) Patel grix Vaccine (1 of 2) [facility] Start: 2021 Zoster Vaccines (1 of 2) Zoste r Vaccines (1 of 2) [facility] Start: 07-14-2019 Influenza vaccination Flu vaccine (# 1) [place], [place] Start: 2016 Screening for malign ant neoplasm of colon [facility] Start: 2011 Lipid panel Lipids [facility] Start: 2011 Lipid screen Lipid screen [place], [place] Start: 2001 Zoledronic acid therapy Alpha- 1 Antitrypsin Deficiency Screening [facility] Start: 1990 Hepatitis A Vaccines (1 of 2 - Risk 2-dose series) Hepatitis A Vaccines (1 of 2 - Risk 2-dose series) [facility] Start: 1990 Hepatitis B Vaccines (1 of 3 - 19+ 3-dose series) Hepatitis B Vaccines (1 of 3 - 19+ 3-dose series) [facility] Start: 1989 Annual PCP Team Map Clerk latisha Disease Visit Annual PCP Team Chronic Disease Visit [facility] Start: 1989 Hepatitis C screening S [facility] Start: 1989 Spirometry Spirometry [facility] Start: 1986 HIV screen HIV screen [place], [place] Start: 1986 HIV screening HIV screen [facility] Start: 1983 Depression Screen Depression Screen [facility] Start: 1983 Depression Screening Depression Scre ening [facility] Start: 1977 Pneumococcal 0-64 ye ars Vaccine (1 - PCV) Pneumococcal 0-64 years Vaccine (1 - PCV) [facility] Start: 1976 COVID-19 Vaccine (1) COVID-19 Vaccin e (1) [facility] Start: 1972 MMR Vaccines (1 of 1 - Standard series) MMR Vaccines (1 of 1 - Standard series) [facility] Start: 1971 COVID-19 Vaccine (#1) COVID-19 Vacci ne (#1) [facility] Start: 1971 Echocardiography Echocardiogram [facility] Start: 1971 Hepatitis B Vaccine (1 of 3 - 3-dose series) Hepatitis B Vaccine (1 of 3 - 3-dose series) [facility] Start: 1971 Hepatitis B Vaccines (1 of 3 - 3-dose series) Hepatitis B Vaccines (1 of 3 - 3-dose series) [facility] Start: 1971 HIV screening HIV Screening [facility] Start: 1971 Screening for malign ant neoplasm of colon [facility] Complete PFT pre and post bronchodilator Complete PFT pre and post bronchodilator PFT Routine Chronic respiratory failure with hypoxia (HCC) 08/14/2024 8:31 AM EDT [facility] Work Phone: [facility] Immunizations Immunization Date Immunization Notes Care Provider Fa cility 07-19-2022 Pneumococcal conjuga te PCV20, PF (Prevnar 20) Pat Lee DO Work Phone: [facility] 09-18-2019 tetanus toxoid, redu denise diphtheria toxoid, and acellular pertussis vaccine, adsorbed Cam Nannette [facility] 09-18-2019 diphtheria, tetanus toxoids and acellular pertussis vaccine, unspecified formulation [facility] [place], [place] Payers Date Payer Category Payer Self-pay 2022 Medicaid [id number] 2022 Medicaid [id number] 2020 Unknown [place] [id number] 2020-Present Indemnity [id number] 2019 Medicaid [place] [facility] [place] [id number] 2019-Present Medicaid [id number] 1971 Unknown [id number] 1971 Unknown [id number] 1971 Unknown [id number] 1971 Unknown [id number] Unknown Unknown [id number] Unknown [id number] Unknown [id number] Unknown [id number] Unknown [id number] Unknown [id number] Social History Date Type Detail Facility Start: 06-22-2020 Tobacco smoking stat us RIIS Unknown if ever smoked [facility] Start: 06-22-2020 History SDOH Financial 3 [facility] Start: 06-22-2020 History SDOH Food Worry 2 [facility] Start: 1970 Sex Assigned At Not on file [facility] [employer] Start: 04-10-2022 End: 04-20-2022 Exposure to SARS-CoV-2 (event) Not sure [facility] Start: 09-18-2019 End: 01-10-2021 Tobacco smoking status NHIS Current every day smoker [facility] [employer] Start: 09-18-2019 End: 06-27-2024 Alcohol intake Not Currently [facility] [employer] Start: 09-18-2019 Tobacco use and exposure Smokeless tobacco non-user [facility] Work Phone: Start: 04-20-2022 End: 06-27-2024 Alcohol intake Ex-drinker (finding) [employer] Work Phone: Start: 07-19-2022 History SDOH Food Worry 1 [facility] Work Phone: Start: 04-20-2022 End: 06-27-2024 History of Social function [facility] How often to you hav e a drink containing alcohol? Never [facility] How many standard drinks containing alcohol do you have on a typical day? Patient does not drink [facility] History of tobacco use Cigarette Smoker C [facility] Work Phone: Has [employer], or [employer] threatened to shut off services in your home in past 12Mo No [facility] Work Phone: How hard is it for y ou to pay for the very basics like food, housing, medical care, and heating Not very hard [facility] Work Phone: (I/We) worried henri boyd (my/our) food would run out before (I/we) got money to buy more. Never true [facility] Work Phone: Start: 1970 Sex Assigned At Male [facility] Start: 02-17-2025 Sex Male (finding) [facility] Clinical Notes 04-20-2022 to 04-29-2024 Emely Amin MD - 04/29/2024 1:00 PM EDTTelephone Encounter - Emily Farris, Personnel Security Specialist - 01/12/2024 8:37 AM ESTTelephone Encounter - Yeimy Luis E - 01/05/2024 9:33 AM EST Note Date [...] answer. Looks like he was hospitalized at [facility] in December, was initially on NIV, discharged on O2. Currently residing at [facility] [place]. Would like to get a POC for ease of mobility. Would like to get stronger and go home. Says his breathing is "not so good". Cough, congestion, intermittent wheeze. Does not think the inhalers are doing much. Still smoking, has a binder coverstitch in his sock. ROS: Review of Systems [...] g 0 cholecalciferol (Vitamin D-3) 50 MCG (1999 UT) tablet Take 2,000 Units by mouth [...] traZODone (Desyrel) 50 MG tablet 50 mg. Oebbveqwcuh-Vdhoffovg-Xnetsr (Trelegy Ellipta) 200-62.5-25 MCG/ACT aerosol powder Inhale [...] Radiology: Reviewed the CT chest [facility] PFT: None Echocardiogram: [facility] Technically difficult exam due to [...] nicotine dependence without complication Other orders - Rizsslyxkpl-Ghpycilyo-Ssftpi (Trelegy Ellipta) 200-62.5-25 MCG/ACT aerosol powder ; Inhale 1 puff daily. Get him a POC for ease of use and mobility, especially while at [facility] to help with rehab Change Advair and Incruse to Trelegy DuoNeb as needed Albuterol as needed PFTs Will need a follow-up CT chest at some point in the near future Needs an alpha-1 test at some point Has to stop smoking Follow-up: Follow up for PFT results. documented in this encounter [facility] 04-29-2024 Note 04/29/2024 REFERRING PHYSICIAN: Kelsi [...] answer. Looks like he was hospitalized at [facility] in December, was initially on NIV, discharged on O2. Currently residing at [facility] [place]. Would like to get a POC for ease of mobility. Would like to get stronger and go home. Says his breathing is "not so good". Cough, congestion, intermittent wheeze. Does not think the inhalers are doing much. Still smoking, has a binder coverstitch in his sock. ROS: Review of Systems [...] traZODone (Desyrel) 50 MG tablet 50 mg. Taykfpfqstv-Eqbzvyojm-Tozrvq (Trelegy Ellipta) 200-62.5-25 MCG/ACT aerosol powder Inhale [...] Radiology: Reviewed the CT [facility] PFT: None Echocardiogram: [facility] Technically difficult exam due to [...] patient has not had a prior CC echocardiogra (more content not included)... [facility] 01-12-2024 Miscellaneous Notes Sent letter to patient regarding Pulmonary Rehab requesting response by 01/26/2024. documented in this encounter [facility] 01-05-2024 Note HNO ID: [id number] Author: AGUILAR LOPEZ MD Service: Hospital Medicine [...] January 05, 2024 TIME: 11:34 AM PAGER: [facility] 01-05-2024 Note HNO ID: [id number] Author: CRYSTAL CHARLTON RN Service: Care Management Author Type: Registered Nurse Type: Care Mgt Progress Note Filed: 01/05/2024 12:50 Note Text: CARE MANAGEMENT DISCHARGE NOTE SERVICE DATE: January 05, 2024 SERVICE TIME: 951 Admission Date: 12/27/2023 LOS: 9 days Discharge Arrangement Discharge Arrangement: Extended Care Facility Services Arranged Provider Name: Jose Eworth Caregiver Assessment Transportation Arrangements Transportation Arrangements: Ambulance Transportation Agency and Phone #:: [facility] ( [facility] ) [phone] / [phone] Date of Trip: 01/05/24 Time of Trip: 1400 Type of Service: BLS Non-emergency Is Patient Medicaid Pending?: No Was transportation financial coverage discussed with family?: Patient Acting Teacher Location: [place] Destination: [facility] Financial Care Management Responsibility: None Handoff Communication: Handoff to: Other Caregiver Other Caregiver Name/Phone: Greer Additional Information: Met with patient at bedside. Discussed d/c plan of [facility]. [facility] Provided patient with HCPOA packet, address and phone number for facility provided to patient. Transportation packet on chart. Bedside RN to call report to [phone]. MD, RN, facility and patient are all aware of d/c plan and are in agreement. Discharge summary, d/c order sent electronically to facility. SIGNATURE: Crystal Charlton RN PATIENT NAME: Javier Dickson DATE: January 05, 2024 TIME: 9:52 AM CONTACT #: [phone] [facility] 01-05-2024 Telephone encounter Note Called patient, patient's vm is not set up yet [facility] 01-05-2024 Miscellaneous Notes Called patient, patient's vm is not set up yet Name of caller: Ayleen Contact phone number: [phone] Relationship to Patient: [facility] Home Care Provider: Luis E Practice: [facility] Chief Complaint/Reason for Call: Ayleen called to [...] Please advise. Name of caller: Lucy from [facility] Contact phone number: [phone] opt #[phone] Relationship to Patient: Lucy from [facility] care Provider: Dr. Batista Practice: [facility] Chief Complaint/Reason for Call: Lucy from [facility] care calling to see if Dr. Batista will follow the patient for home care. Please advise. Best time of day caller can be reached: any Patient advised that office/PCP has 24-48 business hours to return their call: No documented in this encounter [facility] 01-04-2024 Note HNO ID: [id number] Author: AGUILAR LOPEZ MD Service: Hospital Medicine [...] Unable to send him to a homeless fpc as oxygen cannot be provided. Plan for SNF/ECF at this time Plan of care discussed with: Provider, RN, Patient. SIGNATURE: Aguilar Lopez MD PATIENT NAME: Javier Dickson DATE: January 04, 2024 TIME: 1:47 PM PAGER: [facility] 01-03-2024 Note HNO ID: [id number] Author: CRYSTAL CHARLTON RN Service: Care Management Author Type: Registered Nurse Type: Care Mgt Progress Note Filed: 01/03/2024 14:37 Note Text: CARE MANAGEMENT PROGRESS NOTE SERVICE DATE: 01/03/2024 SERVICE TIME: 1431 LOS: 7 days [place] of Choice Given: Yes Level of Care Discussed: Fci Facility Financial Disclosure Provided: Yes Financial Disclosure Comments: [facility] provide oxygen to a Homeless fpc, neither can CC HRT. Patient spoke with son yesterday, son still uncertain if patient can return to the home that his son is living at. Discussed d/c to SNF/ECF where they can assist with applying for disability and obtaining housing for patient. Pt. Is in agreement. Pt. Was accepted to [facility]( sister facility to [facility]). Pt. Chose [facility] [place]. Insurance auth initiated. Discharge plan is SNF LOC pending insurance authorization. Pt. Will need cot transportation at d/c. Will continue to follow. SIGNATURE: Crystal Charlton RN PATIENT NAME: Javier Dickson DATE: January 03, 2024 TIME: 2:31 PM PAGER/CONTACT #: [phone] [facility] 01-03-2024 Note HNO ID: [id number] Author: AGUILAR LOPEZ MD Service: Hospital Medicine [...] January 03, 2024 TIME: 1:51 PM PAGER: [facility] 01-02-2024 Note HNO ID: [id number] Author: AGUILAR LOPEZ MD Service: Hospital Medicine [...] January 02, 2024 TIME: 3:37 PM PAGER: [facility] 01-02-2024 Note HNO ID: [id number] Author: CHUYITA HARRINGTON LSW Service: Care Management Author Type: Optical Instrument Assembler Type: Care Mgt Progress Note Filed: 01/02/2024 [...] 02, 2024 TIME: 1:54 PM PAGER/CONTACT #: [phone] [facility] 01-02-2024 Note HNO ID: [id number] Author: CRYSTAL CHARLTON RN Service: Care Management Author Type: Registered Nurse Type: Care Mgt Progress Note Filed: 01/02/2024 10:38 Note Text: CARE MANAGEMENT PROGRESS NOTE SERVICE DATE: 01/02/2024 SERVICE TIME: 03821 LOS: 6 days Needs Prior to Discharge: To Be Determined;Discharge Transportation;Oxygen Set-up Chart reviewed, no return call from patient's son Andrea. Attempted to contact Andrea today. No answer, unable to leave a voice mail d/t mail box being full. Unable to determine if patient has somewhere to stay at d/c. Will ask SW to assist with Housing/Homeless fpc. SIGNATURE: Crystal Charlton RN PATIENT NAME: Javier Dickson DATE: January 02, 2024 TIME: 10:35 AM PAGER/CONTACT #: [phone] [facility] 01-01-2024 Note HNO ID: [id number] Author: CRYSTAL CHARLTON RN Service: Care Management [...] information phone numbers for transportation thru his [employer] insurance, and PCP list. Pt. Has not followed up with his PCP for a few years, will not follow for HHC. Updated Dr. Chappell, Dr. Chappell is in agreement to follow for HHC until patient gets established with a PCP. Will discuss with son and schedule a PCP appointment prior to d/c. [facility] take to patient's room, will deliver a concentrator and nebulizer to patient's home once location confirmed. Anticipate d/c tomorrow once service address confirmed with [employer] and HHC. Will continue to follow. SIGNATURE: Crystal Charlton RN PATIENT NAME: Javier Dickson DATE: January 01, 2024 TIME: 4:18 PM PAGER/CONTACT #: [phone] [facility] 01-01-2024 Note HNO ID: [id number] Author: KIMI ZAPATA RN Service: ? Author Type: Registered Nurse Type: Nursing Progress Note Filed: 01/01/2024 12:09 Note Text: O2 Saturation test Resting on 4L 93% Resting RA 91% Walking 4L 92% Walking RA 87% [facility] 01-01-2024 Miscellaneous Notes Jacob there! (Spoke with: Javier ) My name is Beto Crenshaw and I'm calling from [facility]. Your doctor wants to [...] address will we be seeing you at? [address] [place] [address] Do you have any upcoming appointments or [...] it? Not sure documented in this encounter [facility] 01-01-2024 Telephone encounter Note Name of caller: Ayleen Contact phone number: [phone] Relationship to Patient: [facility] Provider: Luis E Practice: [facility] Chief Complaint/Reason for Call: Ayleen called to see if the doctor would follow for home care. I released the message to her about the patient will need an appointment. She said she will note that. Please advise Best time of day caller can be reached: any Patient advised that office/PCP has 24-48 business hours to return their call: No [facility] 01-01-2024 Note HNO ID: [id number] Author: KAROLINA CHAPPELL MD Service: Hospital Medicine Author Type: Physician Type: Progress Notes Filed: 01/01/2024 18:12 Note Text: Subjective - follow up for [facility], this is day 5, chart reviewed. PAST MEDICAL HISTORY Diagnosis Date Bowel obstruction (HCC) COPD (chronic obstructive pulmonary disease) (HCC) Pt admit to ICU on 12/27 - '#Acute hypoxic hypercapnic respiratory failure 2/2 COPD -CAP [...] DVT ultrasound negative Endo: n/a' As per [facility] on 12/31 - '#Acute hypoxemic respiratory failure [...] has a follow up appointment with Harley Abarca (ZURI in our OP clinic) on Wednesday 01/10 at 1:30 PM. Discharge patient home on Advair, Spiriva and PRN Albuterol as he came in on. 3) Mediastinal lymphadenopathy (up to 1.3 cm) - suspect reactive. Recommend repeat imaging in 6-8 weeks for on-going surveillance (which I ordered in [facility]). 4) Small right pleural effusion - [...] per Nutrition services on 01/01. Discussed with animal care service worker 01/01 - 'Chart reviewed, spoke with patient at bedside. States h (more content not included)... [facility] 01-01-2024 Note HNO ID: [id number] Author: DEANNA FLORES APRN.VANESSA Service: Pulmonary Disease Author Type: Nurse Practitioner Type: Progress Notes Filed: 01/01/2024 10:52 Note Text: PULMONARY PROGRESS NOTE [facility] SERVICE DATE: January 01, 2024 SERVICE TIME: [...] ORAL q 6 H PRN Raven Lara APRN.BLOWER ROOM ATTENDANT 30 mL at 12/31/23 0243 polyethylene glycol [...] burst of systemic (more content not included)... [facility] 01-01-[address] Capellan, Please sign the orders for Javier Dickson (f/u CT chest in 6 weeks for resolution of ZACHERY) The patient will also need a follow up with our office afterwards. Thank you! Deanna Flores APRN.CNP January 01, 2024 10:46 AM documented in this encounter [facility] 12-31-2023 Note HNO ID: [id number] Author: CHELI CEE MD Service: Hospital Medicine [...] EODINP -- -- 1.2 CHEM: Recent Labs 12/30/2332112/28/2341112/27/2341 12/27/23210 NA 140 139 -- 142 K [...] the last 168 hours. CARDIAC: Recent Labs 12/27/23210 PBNP 3,703* Imaging: CT CHEST W IVCON [...] Javier Dickson DATE: 12/31/2023 TIME: 10:58 AM [facility] 12-30-2023 Note HNO ID: [id number] Author: CHELI CEE MD Service: Hospital Medicine [...] EODINP -- -- 1.2 CHEM: Recent Labs 12/30/2332112/28/23 0412 12/27/23 0841 12/27/23210 NA 140 139 -- 142 [...] Javier Dickson DATE: 12/30/2023 TIME: 5:20 PM [facility] 12-30-2023 Note HNO ID: [id number] Author: JAMEEL SCHULZ RN Service: Care Management [...] the above information. Dme ordered already in [facility]. SIGNATURE: Jameel Schulz RN PATIENT NAME: Javier Dickson DATE: December 30, 2023 TIME: 3:30 PM PAGER/CONTACT #: [phone] [facility] 12-29-2023 Note HNO ID: [id number] Author: AGUILAR LOPEZ MD Service: Hospital Medicine [...] December 29, 2023 TIME: 4:53 PM PAGER: [facility] 12-29-2023 Note HNO ID: [id number] Author: CRYSTAL CHARLTON RN Service: Care Management [...] is home with [facility], equipment thru [employer], and home oxygen thru [employer]. Will continue to follow. SIGNATURE: Crystal Charlton RN PATIENT NAME: Javier Dickson DATE: December 29, 2023 TIME: 3:25 PM PAGER/CONTACT #: [phone] [facility] 12-28-2023 Note HNO ID: [id number] Author: AGUILAR LOPEZ MD Service: Hospital Medicine [...] December 28, 2023 TIME: 1:55 PM PAGER: [facility] 12-28-2023 Telephone encounter Note Patients last visit 07/19/22. Please advise. [facility] 12-28-2023 Telephone encounter Note Name of caller: Lucy from [facility] Contact phone number: [phone] opt #5 Relationship to Patient: Lucy from [facility] home care Provider: Dr. Batista Practice: [facility] Chief Complaint/Reason for Call: Lucy from [facility] calling to see if Dr. Batista will follow the patient for home care. Please advise. Best time of day caller can be reached: any Patient advised that office/PCP has 24-48 business hours to return their call: No [facility] 12-28-2023 Note HNO ID: [id number] Author: KARLA GONZALES LSW Service: Care Management Author Type: Optical Instrument Assembler Type: Care Mgt Progress Note Filed: 12/28/2023 [...] care. Patient in agreement. Patient's address is [address] [place] [address]. Patient will need desat study to see if he is eligible for home o2. [employer] to email form to be completed for medicaid SIGNATURE: ROLF Kulkarni PATIENT NAME: Javier Dickson DATE: December 28, 2023 TIME: 12:28 PM PAGER/CONTACT #: [phone] [facility] 12-27-2023 Note HNO ID: [id number] Author: KARLA GONZALES LSW Service: Care Management Author Type: Optical Instrument Assembler Type: Care Mgt Initial Assessment Filed: 12/27/2023 13:09 Note Text: CARE MANAGEMENT: ASSESSMENT AND DISCHARGE PLAN SERVICE DATE: December 27, 2023 SERVICE TIME: 12:19 PM PCP: Carlyle Garcia MD Primary Contact: Extended Emergency Contact Information Primary Emergency Contact: YessiNeptali Relation: Son Admission Status: Inpatient Insurance Provider: [facility] [place]ICAID OF [place] Discharge Planning requested by: Per Department Practice Potential Transition Plans To Be Determined Advance Directives Current Advance Directive: None Turn Machine Operator Attempted to Assist with AD Completion: Yes [...] General wellness, Be able to go home Mcque[place]y of Choice Explained: [place] of Choice Given: No Reason Not Given: [...] No - Do you ever drink an eye-transportation sales consultant in the morning to relieve shakes? No [...] needed will accept o2. Patient's address is [address] [place] [address]. Sw tasked for referral to be placed to [facility] for home o2. Patient may need. Natalie/beatrice to follow. SIGNATURE: ROLF Kulkarni PATIENT NAME: Javier Dickson DATE: December 27, 2023 TIME: 12:19 PM CONTACT #: [phone] [facility] 12-27-2023 Note HNO ID: [id number] Author: ?, ?, ? Service: ? Author Type: Bottling Line Attendant Type: Plan of Care Filed: 12/27/2023 12:20 Note Text: PHARMACY MEDICATION REVIEW Patient Name: Javier Dickson : 1970 The following medications were updated within the COIL TIER medication list: Medications ADDED to COIL TIER medication list Medications CHANGED on COIL TIER medication list Medications REMOVED from COIL TIER medication list Additional comments: I was able to talk with the pt. about his home medications. He verified to me the 3 medications recorded below on the COIL TIER list. I found these medications filled via [employer] e-script. I have not added, removed or changed any COIL TIER medications. [facility] uses [facility] Required follow up actions for nursing: Medication history completed by Historian. No nursing follow up required. The below information represents the best possible medication history: Yes Medication history completed by: Bottling Line Attendant: Ranjith Anand (Antitank Assault Gunner) Source of history: Patient: Reliability of source: Appears reliable, clearly identified: Medication name, Medication dose, Medication route, and Medication frequency and Pharmacy records: Epic [facility]script [facility] Medication nonadherence identified: No barriers noted Reconciliation completed: No, pharmacist not yet reviewed Patient interested in Bedside Delivery Services or using OP Pharmacy at discharge? Unable to assess Preferred outpatient pharmacy: [id number] [place] [address] [address] [facility] [place] [place] [phone] [facility] [place] [address] Allergies: No Known Allergies Prior to Admission [...] once daily. Facility-Administered Medications: None Ranjith Anand (Antitank Assault Gunner) phone [phone] 12/27/2023 [facility] 12-27-2023 Note HNO ID: [id number] Author: JOHN POWELL MD Service: Critical Care [...] LABORATORY: BLOOD GAS: CBC: Recent Labs 12/27/23 0211 WBC 8.60 [...] cooperative. CURRENT MEDICA (more content not included)... [facility] 12-27-2023 Note HNO ID: [id number] Author: JOHN POWELL MD Service: Critical Care [...] well today without BIPAP consider transfer to [facility] - Needs outpatient follow up as [...] [facility] DATE of SERVICE: 12/27/2023 [facility] 12-25-2023 Telephone encounter Note Made Several attempts to call Pt to Schedule an DIGITAL PHOTOGRAPHER Appt. And NO ANSWER @ [phone] the contact number VM has not been set-Up so I am unable to Leave a Message. Thank You [facility] 12-25-2023 Miscellaneous Notes Made Several attempts to call Pt to Schedule an DIGITAL PHOTOGRAPHER Appt. And NO ANSWER @ [phone] the contact number VM has not been set-Up so I am unable to Leave a Message. Thank You Name of Caller: Javier Contact Reason for Appointment: Javier submitted an online request on 12/21/23 regarding a call back to get scheduled for a DIGITAL PHOTOGRAPHER appt for Dx: COPD Exacerbation (11/13/23 [facility] ED). Javier states he would like to get scheduled for an apt [place]. Javier states he is available for call back anytime. Please contact Javier and advise. Office Name: [facility] Medication Refills need, if any: N/A Medication Name: N/A documented in this encounter [facility] 12-25-2023 Telephone encounter Note Name of Caller: Javier Contact Reason for Appointment: Javier submitted an online request on 12/21/23 regarding a call back to get scheduled for a DIGITAL PHOTOGRAPHER appt for Dx: COPD Exacerbation (11/13/23 [facility] ED). Javier states he would like to get scheduled for an apt [place]. Javier states he is available for call back anytime. Please contact Javier and advise. Office Name: [facility] Medication Refills need, if any: N/A Medication Name: N/A [facility] 11-28-2023 History of Presen t illness Narrative Made 2 attempts to call patient. Left message for patient to return call. If patient returns call, pleased ask the questions and schedule a hospital follow up appointment. Please send letter also requesting patient call us for scheduling. Thanks! Printed letter and placed in the mail documented in this encounter [facility] 11-27-2023 History of Presen t illness Narrative Images from the original note were not included. Outreach made within 2 business days of discharge: yes Patient: Javier Dickson Patient : 1970 Reason for Admission: RSV Bronchiolitis Discharge Date: 11/23/23 Discharge department/facility: [facility] Spoke with: Attempted to call patient. Left [...] RSV Bronchiolitis Discharge Date: 11/23/23 Discharge department/facility: [facility] Spoke with: Attempted to call patient. Left [...] Admission 11/13/2023 [place] [address] CV MED/SURG Javier Stanton Male; born [birth year]Encounter Summary, generated on 2023January 2023 Additional Documents Discharge Summary (Last Received: 11/24/2023 1:29 PM) Encounter Summary - COPD exacerbation (HCC) [J44.1] (Last Received: 11/27/2023 1:17 PM) - Currently Viewing Encounter Summary Source Comments - [facility] In the event this information is [...] (HCC) Procedures NA [address] [place] [address] Reason for Visit - Auth/Cert (Routine) Referral ID Status Reason Start Date Expiration Date Visits Requested Visits Authorized [id number] 1 1 Encounter Details Encounter Details Date Type Department Care Team (Latest Contact Info) Description 11/13/2023 4:34 AM EST - 11/23/2023 6:24 PM EST Hospital Encounter [place] [address] CV MED/SURG 1 [place], [place] [id number] John Birmingham MD 1 [place] [address] Current, Dianna, DO 1 [place], [place] [id number] Jill Shin MD [address] [place], [place] [id number] Phan Huston MD 1 [place], [place] [id number] Zita Garvin MD 1 [place], [place] [id number] Davion Suggs MD 1 [facility] [address] [place], [place] [id number] COPD exacerbation (HCC) [J44.1] Discharge Disposition: Home [...] place to sleep or slept in a fpc (including now)? No 11/16/2023 Social History Area Deprivation Index Answer Date Recorded National Score (1-100), lower number is lower risk 95 11/14/2023 State Score (1-10), lower number is lower risk 9 11/14/2023 Data from: https://www.neighborhoodatlas.de [facility]/. Last address used for calculation [address] [...] Attending Provider: Davion Suggs MD Primary Service: IN [place] MY CONDITION AT DISCHARGE: Stable REASON [...] right basilar patchy opacity favoring infection. MRSA tumkf-kdepllcr-jgqwvup with Bactroban. Legionella pneumococcal antigen negative. Completed [...] and prn Albuterol. Needs outpatient follow-up with long lines operator-he was to follow-up with the long lines operator in [facility] 5. Tobacco use: Reports he he has [...] address listed as his home address in [facility]; he knows he can get to his son's friend house from there which is around the corner. At discharge he will be given home-going medications from our pharmacy. He has been recommended to follow-up with PCP in a week and with long lines operator. He has been recommended to have [...] pre-hospital diet Follow Up Appointments Follow-Up Appointment Supervisor Drawing regarding follow-up on COPD exacerbation When: In 2 weeks Betsy Cristina MD [phone] [facility] [address] PCP Requested Referral Follow-Up Appointment - Your PCP When: In 1 week Patient/Parents to call for appointment?: Yes Carlyle Garcia MD [phone] [facility] [address] PCP Requested Referral Follow-Up Appointment - Your [...] right basilar patchy opacity favoring infection. MRSA qenbu-brxlbfrq-miybcfb with Bactroban. Legionella pneumococcal antigen negative. Completed [...] and prn Albuterol. Needs outpatient follow-up with long lines operator-he was to follow-up with the long lines operator in [facility] 5. Tobacco use: Reports he he has [...] address listed as his home address in [employer]; he knows he can get to his son's friend house from there which is around the corner. At discharge he will be given home-going medications from our pharmacy. He has been recommended to follow-up with PCP in a week and with long lines operator. He has been recommended to have follow-up chest Malnutrition Diagnosis supported by Registered Dietitian:Severe Protein-Calorie Malnutrition Based on: Subcutaneous Fat Loss, Muscle Loss Assessment: I have reviewed the result of the malnutrition assessment and plan and agree Plan: Diet, Supplements, Diet Education Treatment Team: Attending Provider: Davion Suggs MD Primary Service: [facility] Transitions of Care Critical Issues: IMAGING FOLLOW-UP: Chest x-ray in 6 weeks SPECIALIST FOLLOW-UP: Dr. Bush, long lines operator. Addendum- referred to Dr Olivares (wanted a long lines operator in [place]) CARLOS MEDICATION CHANGES: Trelegy Ellipta and albuterol as needed prescribed LABS AND PROCEDURES PENDING AT DISCHARGE: No pending results. FOLLOW-UP APPOINTMENTS ALREADY SCHEDULED WITH A [facility] PROVIDER: No future appointments. ALLERGIES No Known [...] Your Medications These medications were sent to [facility] [address] [place] [address] Hours: Monday-Monday, 8am-7pm, Monday 9am-1pm albuterol HFA [...] Management, and RN I have performed the cecf-ie-zung and relevant services for a total of [...] wheezing/shortness of breath. 6.7 g 0 11/23/2023 vxjyxtsdzbw-dvrrzjuhf-vlkslgih (TRELEGY ELLIPTA) 100-62.5-25 mcg inhalation powder Inhale [...] a day. 10.2 g 0 11/17/2023 11/17/2023 ismljmiapiv-bwdkfkfew-fisxqrew (TRELEGY ELLIPTA) 100-62.5-25 mcg inhalation powder Inhale 1 Puff as instructed once daily. 60 Each 0 11/17/2023 11/23/2023 albuterol HFA (PROVENTIL HFA, VENTOLIN HFA) 90 mcg/actuation inhaler Inhale 2 Puffs as instructed every 4 hours as needed for wheezing/shortness of breath. 6.7 g 0 Noted, covering for PCP. documented in this encounter [facility] 11-27-2023 Note Outreach made within 2 business days of discharge: yes Patient: Javier Dickson Patient : 1970 Reason for Admission: RSV Bronchiolitis Discharge Date: 11/23/23 Discharge department/facility: [facility] Spoke with: Attempted to call patient. Left [...] RSV Bronchiolitis Discharge Date: 11/23/23 Discharge department/facility: [facility] Spoke with: Attempted to call patient. Left [...] Currently Viewing Encounter Summary Source Comments - [facility] In the event this information is [...] (HCC) Procedures NA [address] [place] [address] Reason for Visit - Auth/Cert (Routine) Referral ID Status Reason Start Date Expiration Date Visits Requested Visits Authorized [id number] 1 1 Encounter Details Encounter Details Date Type Department Care Team (Latest Contact Info) Description 11/13/2023 4:34 AM EST - 11/23/2023 6:24 PM EST Hospital Encounter [place] [address] CV MED/SURG 1 [place], [place] [id number] John Birmingham MD 1 [place] [address] Dianna Ponce DO 1 [place] [address] Jill Shin MD [address] [place] [id number] Phan Huston MD 1 [place], [place] [phone] Zita Garvin MD 1 [place], [place] [phone] Davion Suggs MD 1 [facility] [address] [place], [place] [phone] COPD exacerbation (HCC) [J44.1] Discharge Disposition: Home Social History - documented as of this encounter Social History Tobacco Use Types Packs/Day Years Used Date Smoking Tobacco: Every Day Cigarettes 1 Social History Alcohol Use Standard Drinks/Week Comments Not Currently 0 (1 standard drink = 0.6 oz pure alcohol) Social History Overall Financial Resource Strain (CARDIA) Answer Date Rec (more content not included)... [facility] 11-23-2023 Note HNO ID: [id number] Author: ANILA RUTH CPhT Service: Pharmacy Author Type: Composition Stone Applicator Type: Plan of Care Filed: 11/23/2023 18:02 Note Text: PHARMACY BEDSIDE DELIVERY SERVICE Patient Name: Javier Dickson The marked outpatient medications were Filled at: [facility] and delivered to the patient's bedside to JUDIT Bell [facility] Medication List START taking these medications [...] 2 Puffs as instructed once daily. [facility] PAGER: Anila Ruth [phone] 11/23/23 6:02 PM November 23, 2023 6:02 PM [facility] 11-23-2023 Note HNO ID: [id number] Author: DAVION SUGGS MD Service: Hospital Medicine Author Type: Physician Type: Progress Notes Filed: 11/23/2023 16:35 Note Text: Documentation Query Based on your medical judgment of the clinical indicators outlined below, please clarify the condition: (Please type X next to your response and sign) Clinical Indicators: 11/21 Charting Clerk Visit Type: Length of Stay Patient reports [...] Continue current diet Supplements: Magic Cup, Boost [facility] Discharge Recommendations: Diet;Oral Supplements Diet: regular Oral [...] out for this encounter Other, please specify [facility] 11-23-2023 Note HNO ID: [id number] Author: KAREN ALVA RN Service: Care Management Author Type: Registered [...] the address. He is declining emergency overnight fpc information , but was agreeable to receiving [...] home is to the address listed in [employer], he stated it was just around the corner. He states we can use the listed address for the cab ride and he will help navigate the cableman. Placed cab on standby, please call [employer] when ready for dc. Asked patient if he would like a food bank ticket, he was agreeable. Please stop at the front clerk for his food care package. Discussed case with [facility] AM Rios Duarte and bioethics Neptali Mai. No other CM needs identified at this time. SIGNATURE: Karen Alva RN PATIENT NAME: Javier Dickson DATE: November 23, 2023 TIME: 4:14 PM CONTACT #: [phone] [facility] 11-23-2023 Note HNO ID: [id number] Author: SHREYA TSE RN Service: Nursing Author Type: Registered Nurse Type: Nursing Progress Note Filed: 11/23/2023 14:47 Note Text: SpO2 on RA while at rest was 95%. SpO2 on RA with exertion was 90%. [facility] 11-23-2023 Note HNO ID: [id number] Author: DAVION SUGGS MD Service: Hospital Medicine Author Type: Physician Type: Progress Notes Filed: 11/23/2023 12:22 Note Text: DEPARTMENT OF HOSPITAL MEDICINE PROGRESS NOTE SERVICE DATE: 11/23/2023 SERVICE TIME: 12:18 PM Hospital Medicine/Primary Attending: Davion Suggs MD NIGHT AND WEEKEND COVERAGE: After 7pm please page [phone] CHIEF COMPLAINT: RSV bronchiolitis. Pneumonia. SUBJECTIVE: Reports [...] Patient Active Hospital Problem List: COPD exacerbation ([facility]) (11/13/2023) Drug abuse ([facility]) (01/14/2021) RSV (acute bronchiolitis due to respiratory syncytial virus) (11/13/2023) Sepsis with encephalopathy without septic shock ([facility]) (11/13/2023) Acute respiratory failure with hypoxia and hypercapnia ([facility]) (11/13/2023) Respiratory acidosis (11/13/2023) Pneumonia of right lower lobe due to infectious organism (11/16/2023) Tobacco abuse (11/16/2023) Tobacco abuse counseling (11/16/2023) On deep vein thrombosis (DVT) prophylaxis (11/16/2023) Marijuana abuse (11/17/2023) Severe protein-calorie malnutrition ([facility]) (11/22/2023) ASSESSMENT: Mr. Dickson presented with shortness of breath, productive cough and chest pain. 1. RSV bronchiolitis and pneumonia: Chest x-ray right basilar patchy opacity favoring infection. Treated with supportive treatment, DuoNeb, Pulmicort and albuterol as needed, Acapella and I-S as well as 5-day steroid burst. 2. Suspected community-acquired bacterial pneumonia: Chest x-ray right basilar patchy opacity favoring infection. MRSA ygqqa-nqhpfcps-[id number] with Bactroban. Legionella pneumococcal antigen negative. Completed [...] and prn Albuterol. Needs outpatient follow-up with long lines operator-he was to follow-up with the long lines operator in [facility] 5. Tobacco use: Reports he he has [...] and Care Ma (more content not included)... [facility] 11-23-2023 Telephone encounter Note Noted. [facility] Work Phone: 11-23-2023 Miscellaneous Notes Noted. Name of caller: Colleen Contact phone number: [phone] Relationship to Patient: [facility] Provider: Dr. Kelsi Batista Practice: [facility] Chief Complaint/Reason for Call: The patient is being seen at [facility] for SOB right now. If you have any questions, please callColleen Best time of day caller can be reached: 4:30 pm Patient advised that office/PCP has 24-48 business hours to return their call: Yes documented in this encounter [facility] 11-22-2023 Note HNO ID: [id number] Author: DAVION SUGGS MD Service: Hospital Medicine Author Type: Physician Type: Progress Notes Filed: 11/23/2023 07:56 Note Text: DEPARTMENT OF HOSPITAL MEDICINE PROGRESS NOTE SERVICE DATE: 11/22/2023 SERVICE TIME: 2:14 PM Hospital Medicine/Primary Attending: Davion Suggs MD NIGHT AND WEEKEND COVERAGE: After 7pm please page [phone] CHIEF COMPLAINT: RSV bronchiolitis/pneumonia. Bacterial pneumonia. SUBJECTIVE: [...] List: COPD exacerbation (HCC) (11/13/2023) Drug abuse ([facility]) (01/14/2021) RSV (acute bronchiolitis due to respiratory syncytial virus) (11/13/2023) Sepsis with encephalopathy without septic shock ([facility]) (11/13/2023) Acute respiratory failure with hypoxia and hypercapnia ([facility]) (11/13/2023) Respiratory acidosis (11/13/2023) Pneumonia of right [...] right basilar patchy opacity favoring infection. MRSA jqwtj-yelbuhdr-eukwpix with Bactroban. Legionella pneumococcal antigen negative. Completed [...] Ellipta and. Albuterol. Needs outpatient follow-up with long lines operator-he was to follow-up with the long lines operator in [facility] 5. Tobacco use: Reports he he has [...] now; he lef (more content not included)... [facility] 11-22-2023 Note HNO ID: [id number] Author: COLLEEN GRANT RN Service: Care Management [...] again to listed number for Neptali (Son) [phone] - no answer, VM with callback number left. 12:13 PM CM attempted to call previous listed number for vipul Mendez -[phone] - number with no ring, and no option to leave VM. 12:15 PM CM called listed home number [phone] (as patient reports that son has his personal phone) a "Ricardo" answered the phone and reports this is the wrong number. 12:20 PM CM attempted to call PCP "Carlyle Garcia" [phone] in attempts to find alternate contact and left callback number. 12:22 PM Callback from PCP office - talked to "Rose Mary" who reports patient has no address listed at their office, and is no longer a patient - now is listed as "new patient" with [facility] Cervantes: Luis E Dolan - [phone]. 12:46 PM CM attempted to call [phone] - a number provided by Rose Mary that was listed for both patient and son- no ring, VM left with callback number. Per Rose Mary patient has not been active with them since July of 2022. 12:48 PM SW provided a number to try to call Andrea at [phone] - number inactive. 12:50 PM Attempted to call [phone] (a number SW provided for a possible patient contact) no ARASELI dubon with callback left. 12:52 PM CM called [phone] a number given for Benny Cervantes - reported to be new PCP - in attempts to find address, or contact information. [phone] (already attempted at 12:46) PCP office reports patient has no address listed - in their system listed [id number] 1:54 PM Received text from [phone] "This is not Andrea please stop calling". [...] that patient does not. CM offered Homeless fpc in [place] that can accept patients with O2 - patient reports he wouldn't know what to do if sent there and that he has never been in a Homeless [facility] in his life. Reports he does not [...] search: number listed for son "Andrea Dickson" [phone]. CM called with no answer and no option to leave VM. Patient will need address, vs placement to Homeless fpc that can accommodate O2. Home O2 delivery, and cab at time of discharge. Bedside RN can call [employer] at time of discharge. aware. Ethics consulted. CM to follow for transitional needs. SIGNATURE: Colleen Grant RN PATIENT NAME: Javier Dickson DATE: November 22, 2023 TIME: 11:00 AM PAGER/CONTACT #: [phone] [facility] 11-22-2023 Telephone encounter Note Name of caller: Colleen Contact phone number: [phone] Relationship to Patient: [facility] Provider: Dr. Kelsi Batista Practice: [facility] Chief Complaint/Reason for Call: The patient is being seen at [facility] for SOB right now. If you have any questions, please call, Colleen Best time of day caller can be reached: 4:30 pm Patient advised that office/PCP has 24-48 business hours to return their call: Yes [facility] 11-21-2023 Note HNO ID: [id number] Author: ZITA GARVIN MD Service: Hospital Medicine Author Type: Physician Type: Progress Notes Filed: 11/21/2023 15:10 Note Text: DEPARTMENT OF HOSPITAL MEDICINE PROGRESS NOTE SERVICE DATE: 11/21/2023 Hospital Medicine/Primary Attending: Zita Nunez MD NIGHT AND WEEKEND COVERAGE: After 7pm please page [phone] SUBJECTIVE: follow up on acute respiratory failure due to PNA Continues to improve Room air at rest , continue to require O2 with activity up to 4 L NC But feels better today Plan of care discussed with patient SW /lawn care worker continues to follow to find his Son [...] . Will repeat Ambulatory pulse Ox tomorrow, project construction assistant manager follows /patient is unable to provide [...] office afterwards to establish care with a long lines operator. Advir and albuterol ordered -Polysubstance abuse Urine is positive for cocaine , amphetamine , cannabinoids Counseled to quit -Patient did mention decreased vision in right eye for >[address] head ordered and negative for acute findings Patient advised to follow up with ophthalmology as outpatient ,could be cataract . -Per lawn care worker : another oxygen company ([employer]) can provide oxygen for ~$40 per month. They left a portable tank at bedside (unable to deliver concentrator without address). If he does not qualify for O2 tmrw [employer] can diogo (more content not included)... [facility] 11-21-2023 Note HNO ID: [id number] Author: COLLEEN GRANT RN Service: Care Management [...] contact - patient defers CM to use [employer]. CM explained cannot use personal social media [...] not qualify for O[facility] tmrw [facility] - if patient does qualify and patient can provide a home address then [employer] can deliver concentrator at that time. Patient will need address vs placement to Homeless fpc that can accommodate O2. Home O2 delivery, and cab at time of discharge. Bedside RN can call [employer] when portable O2 able to be delivered. CM to follow for transitional needs. SIGNATURE: Colleen Grant RN PATIENT NAME: Javier Dickson DATE: November 21, 2023 TIME: 2:04 PM PAGER/CONTACT #: [phone] [facility] 11-20-2023 Note HNO ID: [id number] Author: ZITA GARVIN MD Service: Hospital Medicine Author Type: Physician Type: Progress Notes Filed: 11/20/2023 16:46 Note Text: DEPARTMENT OF HOSPITAL MEDICINE PROGRESS NOTE SERVICE DATE: 11/20/2023 Hospital Medicine/Primary Attending: Zita Nunez MD NIGHT AND WEEKEND COVERAGE: After 7pm please page [phone] SUBJECTIVE: follow up on acute respiratory failure [...] office afterwards to establish care with a long lines operator. Advir and albuterol ordered -Polysubstance abuse [...] NAME: Javier Dickson PAGER/CONTACT #: steffen mahajan [facility] 11-20-2023 Note HNO ID: [id number] Author: COLLEEN GRANT RN Service: Care Management Author Type: Registered Nurse Type: Care Mgt Progress Note Filed: 11/20/2023 15:29 Note Text: CARE MANAGEMENT PROGRESS NOTE SERVICE DATE: 11/20/2023 SERVICE TIME: 3:09 PM LOS: 7 days 12:15 PM Spoke to patient at bedside. [facility] have [facility] [...] contact. Per Eugenio, number for son in [employer] is not correct. CM attempted number listed Neptali (Son) [phone] - no answer, VM left. 2:00 PM CM asked patient for another number for son - patient reports no other number, defers CM to use Facebook and search for "Fro-Man". CM unable to use Facebook to contact family/friends for patient. 2:07 PM CM attempted to call son's number listed in [employer] ([phone]) which is inactive. 2:42 PM Sent referral to [facility]. 3:00 PM CM spoke to patient again, patient does not have a mobile phone on him. Patient suggested CM try messaging "Aby" on Facebook - CM explained unable to use personal social media to contact family/friends for patient. CM offered Homeless fpc information, patient reports he does not need [...] Home Address and arrange Home O2 delivery. aware, per Dr. Garvin: no plan for discharge today, will re evaluate tomorrow 11/21. Patient will need address vs placement to Homeless fpc that can accommodate O2. Home O2 delivery, and cab at time of discharge. Bedside RN can call [employer] when portable O2 able to be delivered. CM to follow for transitional needs. SIGNATURE: Colleen Grant RN PATIENT NAME: Javier Dickson DATE: November 20, 2023 TIME: 3:09 PM PAGER/CONTACT #: [phone] [facility] 11-19-2023 Note HNO ID: [id number] Author: ZITA GARVIN MD Service: Hospital Medicine Author Type: Physician Type: Progress Notes Filed: 11/19/2023 14:23 Note Text: DEPARTMENT OF HOSPITAL MEDICINE PROGRESS NOTE SERVICE DATE: 11/19/2023 Hospital Medicine/Primary Attending: Zita Nunez MD NIGHT AND WEEKEND COVERAGE: After 7pm please page [phone] SUBJECTIVE: follow up on acute respiratory failure [...] office afterwards to establish care with a long lines operator. Advir and albuterol ordered -Polysubstance abuse [...] Javier Dickson PAGER/CONTACT #: steffen team keyshawn [facility] 11-18-2023 Note HNO ID: [id number] Author: ZITA GARVIN MD Service: Hospital Medicine Author Type: Physician Type: Progress Notes Filed: 11/18/2023 15:34 Note Text: DEPARTMENT OF HOSPITAL MEDICINE PROGRESS NOTE SERVICE DATE: 11/18/2023 Hospital Medicine/Primary Attending: Zita Nunez MD NIGHT AND WEEKEND COVERAGE: After 7pm please page [phone] SUBJECTIVE: follow up on acute respiratory failure [...] office afterwards to establish care with a long lines operator. Advir and albuterol ordered -Polysubstance abuse Urine is positive for cocaine , amphetamine , cannabinoids Counseled to quit VTE Prophylaxis: as appropriate Disposition: Home Plan of care discussed with: Provider, RN, Patient SIGNATURE: Zita Garvin MD PATIENT NAME: Javier Dickson PAGER/CONTACT #: [facility] team keyshawn [facility] 11-17-2023 Note HNO ID: [id number] Author: ZITA GARVIN MD Service: Hospital Medicine Author Type: Physician Type: Progress Notes Filed: 11/17/2023 15:32 Note Text: DEPARTMENT OF HOSPITAL MEDICINE PROGRESS NOTE SERVICE DATE: 11/17/2023 Hospital Medicine/Primary Attending: Zita Nunez MD NIGHT AND WEEKEND COVERAGE: After 7pm please page [phone] SUBJECTIVE: follow up on acute respiratory failure [...] office afterwards to establish care with a long lines operator. -Polysubstance abuse Urine is positive for cocaine , amphetamine , cannabinoids Counseled to quit VTE Prophylaxis: as appropriate Disposition: Home Plan of care discussed with: Provider, RN, Patient SIGNATURE: Zita Garvin MD PATIENT NAME: Javier Dickson PAGER/CONTACT #: steffen team keyshawn [facility] 11-17-2023 Note HNO ID: [id number] Author: COLLEEN GRANT RN Service: Care Management [...] charted desat study 11/17. [facility]. Patient would need O2 orders, and O2 delivery. CM to follow for transitional needs. SIGNATURE: Colleen Grant RN PATIENT NAME: Javier Dickson DATE: November 17, 2023 TIME: 12:49 PM PAGER/CONTACT #: [phone] [facility] 11-17-2023 Note HNO ID: [id number] Author: DEANNA LFORES APRN.CNP Service: Pulmonary Disease Author Type: Nurse Practitioner Type: Progress Notes Filed: 11/17/2023 10:18 Note Text: PULMONARY PROGRESS NOTE [facility] SERVICE DATE: November 17, 2023 SERVICE TIME: [...] (DUONEB) 3 mL INHALATION QID Deanna Flores APRN.BLOWER ROOM ATTENDANT 3 mL at 11/17/23 0759 budesonide 0.5 mg/2 mL 0.5 mg (PULMICORT) 0.5 mg INHALATION BID Deanna Florse APRN.BLOWER ROOM ATTENDANT 0.5 mg at 11/17/23 0758 senna-docusate 8.6-50 mg 1 tablet (SENNA-S) 1 tablet ORAL BID PRN Zita Garvin MD melatonin 3 mg tab(s) 3 mg ORAL AT BEDTIME PRN Zita Garvin MD ondansetron (PF) 4 mg injection (ZOFRAN) 4 mg INTRAVENOUS q 6 H PRN Kasia Gudino APRN.BLOWER ROOM ATTENDANT 4 mg at 11/15/23 0513 doxycycline hyclate 100 mg cap(s) (VIBRAMYCIN) 100 mg ORAL q 12 H 6a/6p Meryl Bains APRN.BLOWER ROOM ATTENDANT 100 mg at 11/17/23 0600 cefTRIAXone iv piggyback 2 g in dextrose (iso-osmotic) 50 mL (ROCEPHIN) 2 g INTRAVENOUS q 24 H Kasia Gudino APRN.BLOWER ROOM ATTENDANT Stopped at 11/17/[address] 40 mg tab(s) (PROTONIX) 40 mg ORAL DAILY (6 AM) Kasia Gudino APRN.BLOWER ROOM ATTENDANT 40 mg at 11/17/23 0600 acetaminophen 650 mg tab(s) (TYLENOL) 650 mg ORAL q 4 H PRN Kasia Gudino APRN.BLOWER ROOM ATTENDANT 650 mg at 11/14/23 2000 NaCl 0.9% iv flush bag 20 mL INTRAVENOUS PRN Kasia Gudino APRN.BLOWER ROOM ATTENDANT Stopped at 11/14/23 0024 enoxaparin 40 mg injection (LOVENOX) 40 mg SUBCUTANEOUS q 24 HR Kasia Gudino APRN.BLOWER ROOM ATTENDANT 40 mg at 11/16/23 1224 sodium chloride 0.9 % (flush) 2-10 mL (BD POSIFLUSH) 2-10 mL INTRAVENOUS DIRECTED PRN Kasia Gudino APRN.BLOWER ROOM ATTENDANT And perflutren lipid microspheres 1.1 mg/mL 1.3 mL injection (DEFINITY) 1.3 mL INTRAVENOUS DIRECTED PRN Kasia Gudino APRN.BLOWER ROOM ATTENDANT INTAKE AND OUTPUT No intake or output [...] wean O2 as (more content not included)... [facility] 11-16-2023 Note HNO ID: [id number] Author: FRANCK REYES LSW Service: Care Management Author Type: Optical Instrument Assembler Type: Care Mgt Initial Assessment Filed: 11/16/2023 15:20 Note Text: CARE MANAGEMENT: ASSESSMENT AND DISCHARGE PLAN SERVICE DATE: November 16, 2023 SERVICE TIME: 3:12 PM PCP: Carlyle Garcia MD Primary Contact: Extended Emergency Contact Information Primary Emergency Contact: Neptali Dickson Mobile Relation: Son Admission Status: Inpatient Insurance Provider: [employer] [facility] [place] Discharge Planning requested [...] Patient Goal(s): Be able to go home [place] of Choice Explained: [place] of Choice Given: No Reason Not Given: [...] 16, 2023 TIME: 3:12 PM CONTACT #: [phone] [facility] 11-16-2023 Note HNO ID: [id number] Author: ZITA GARVIN MD Service: Hospital Medicine Author Type: Physician Type: Progress Notes Filed: 11/16/2023 14:38 Note Text: DEPARTMENT OF HOSPITAL MEDICINE PROGRESS NOTE SERVICE DATE: 11/16/2023 SERVICE TIME: 2:31 PM Hospital Medicine/Primary Attending: Zita Nunez MD NIGHT AND WEEKEND COVERAGE: After 7pm please page [phone] SUBJECTIVE: follow up on acute respiratory failure [...] CBC, Coags, BMP, Mg, Phos Recent Labs 11/15/23 0455 11/14/23 0347 WBC 12.00* 15.63* HB 13.3 14.5 HCT 41.6 45.7 PLT 245 223 NA 136 134* K 4.2 4.7 CHLOR 91* 91* CO2 41* 34* BUN 29* 52* CREAT 0.68* 1.41* GLUC 105* 113* CA 8.7 9.0 CSF AND Dilantin Liver Function, Amylase, AND Lipase Recent Labs 11/15/23 0455 11/14/23 0348 11/14/23 0347 11/13/23195011/13/23 1635 TPROT 5.9* -- 6.6 -- -- ALB 3.6* -- 3.8* -- -- ALT 24 -- 31 -- -- AST 16 -- 23 -- -- ALKPHOS 76 -- 90 -- -- TBILI 0.2 -- 0.4 -- -- LACT -- 2.1 -- 3.0* 2.9* Cardiac Enzymes ABGs Recent Labs 11/14/23 034 O2AD 60 Problem List COPD exacerbation (HCC) [...] keep sat>90% Continue ceftriaxone and doxycycline day 4/7 Bronchodilators as ordered Pulmonary follows -Tobacco use daily with likely underlying COPD Counseled to quit smoking Pulmonary follows Per pulmonary discharging patient home on Spiriva, Adviar (or equal equivalents) as well as PRN Albuterol. He will need outpatient PFTs for baseline spirometry with a follow-up with our office afterwards to establish care with a long lines operator. -Polysubstance abuse Urine is positive for cocaine , amphetamine , cannabinoids Counseled to quit VTE Prophylaxis: as appropriate Disposition: Home Plan of care discussed with: Provider, RN, Patient SIGNATURE: Zita Garvin MD PATIENT NAME: Javier Dickson DATE: November 16, 2023 TIME: 2:31 PM PAGER/CONTACT #: steffen mahajan [facility] 11-16-2023 Note HNO ID: [id number] Author: DEANNA FLORES APRN.CNP Service: Pulmonary Disease Author Type: Nurse Practitioner Type: Progress Notes Filed: 11/16/2023 11:57 Note Text: PULMONARY PROGRESS NOTE [facility] SERVICE DATE: November 16, 2023 SERVICE TIME: [...] INTRAVENOUS q 6 H PRN Kasia Gudino APRN.BLOWER ROOM ATTENDANT 4 mg at 11/15/23 0513 predniSONE 40 mg tab(s) (DELTASONE) 40 mg ORAL DAILY Kasia Gudino APRN.BLOWER ROOM ATTENDANT 40 mg at 11/16/23 0812 doxycycline hyclate 100 mg cap(s) (VIBRAMYCIN) 100 mg ORAL q 12 H 6a/6p Meryl Bains APRN.BLOWER ROOM ATTENDANT 100 mg at 11/16/23 0523 ipratropium-albuterol 3 mL nebulizer solution (DUONEB) 3 mL INHALATION TID Kasia Gudino APRN.BLOWER ROOM ATTENDANT 3 mL at 11/15/23 1155 cefTRIAXone iv piggyback 2 g in dextrose (iso-osmotic) 50 mL (ROCEPHIN) 2 g INTRAVENOUS q 24 H Kasia Gudino APRN.BLOWER ROOM ATTENDANT 100 mL/hr at 11/16/23 0812 2 g at 11/16/[address] 40 mg tab(s) (PROTONIX) 40 mg ORAL DAILY (6 AM) Kasia Gudino APRN.BLOWER ROOM ATTENDANT 40 mg at 11/16/23 0523 acetaminophen 650 mg tab(s) (TYLENOL) 650 mg ORAL q 4 H PRN Kasia Gudino APRN.BLOWER ROOM ATTENDANT 650 mg at 11/14/23 2000 NaCl 0.9% iv flush bag 20 mL INTRAVENOUS PRN Kasia Gudino APRN.BLOWER ROOM ATTENDANT Stopped at 11/14/23 0024 enoxaparin 40 mg injection (LOVENOX) 40 mg SUBCUTANEOUS q 24 HR Kasia Gudino APRN.BLOWER ROOM ATTENDANT 40 mg at 11/14/23 0946 albuterol 2.5 mg /3 mL (0.083 %) 2.5 mg (PROVENTIL) 2.5 mg INHALATION q 4 H PRN Kasia Gudino APRN.BLOWER ROOM ATTENDANT sodium chloride 0.9 % (flush) 2-10 mL (BD POSIFLUSH) 2-10 mL INTRAVENOUS DIRECTED PRN Kasia Gudino APRN.BLOWER ROOM ATTENDANT And perflutren lipid microspheres 1.1 mg/mL 1.3 mL injection (DEFINITY) 1.3 mL INTRAVENOUS DIRECTED PRN Kasia Gudino APRN.BLOWER ROOM ATTENDANT INTAKE AND OUTPUT Intake/Output Summary (Last 24 [...] Pulmicort. Add an (more content not included)... [facility] 11-15-2023 Note HNO ID: [id number] Author: Kasia Gudino APRN.BLOWER ROOM ATTENDANT Service: Critical Care Author Type: Nurse Practitioner [...] patientJavier with DEBORA Helm (Steffen). Transferred to: [facility] with tele New Physician Attending: Dr. Huston (Steffen) Kasia Gudino APRN.CNP November 15, 2023 11:34 AM [facility] 11-15-2023 Note HNO ID: [id number] Author: Jill Shin MD Service: Pulmonary Disease Author Type: Physician Type: Progress Notes Filed: 11/15/2023 11:13 AM Note Text: [facility] STAFF PHYSICIAN NOTE OF PERSONAL INVOLVEMENT IN CARE Attending Note I have personally performed a face to face assessment of the patient and have reviewed the FIELD ARTILLERY OPERATIONS SPECIALIST/resident note and documentation. I personally participated [...] INTRAVENOUS q 6 H PRN Chuyita Newby APRN.BLOWER ROOM ATTENDANT 4 mg at 11/15/23 0513 [START ON 11/16/2023] predniSONE 40 mg tab(s) (DELTASONE) 40 mg ORAL DAILY Kasia Gudino APRN.BLOWER ROOM ATTENDANT ipratropium-albuterol 3 mL nebulizer solution (DUONEB) 3 mL INHALATION TID Jill Shin MD 3 mL at 11/15/23 0919 cefTRIAXone iv piggyback 2 g in dextrose (iso-osmotic) 50 mL (ROCEPHIN) 2 g INTRAVENOUS q 24 H Kasia Gudino APRN.BLOWER ROOM ATTENDANT 100 mL/hr at 11/15/23 0753 2 g at 11/15/[address] 40 mg tab(s) (PROTONIX) 40 mg ORAL DAILY (6 AM) Chuyita Newby APRN.BLOWER ROOM ATTENDANT 40 mg at 11/15/23 0448 acetaminophen 650 mg tab(s) (TYLENOL) 650 mg ORAL q 4 H PRN Chuyita Newby APRN.BLOWER ROOM ATTENDANT 650 mg at 11/14/231999 doxycycline 100 mg in D5W 250 mL Vial-Bag (VIBRAMYCIN) 100 mg INTRAVENOUS q 12 H Victor Hugo Varma DO 250 mL/hr at 11/15/23 0753 100 mg at 11/15/23 0753 NaCl 0.9% iv flush bag 20 mL INTRAVENOUS PRN TaVictor Hugo, DO Stopped at 11/14/23 0024 potassium chloride ER 20-40 mEq tab(s) (KLOR-CON) 20-40 mEq ORAL/FEEDING TUBE PRN Ta, Victor Hugo, DO Or potassium chloride iv piggyback 20 mEq/100 mL 20 mEq INTRAVENOUS PRN Ta, Gay, DO magnesium sulfate iv piggyback in sterile water 2 g 50 mL 2 g INTRAVENOUS PRN Ta, Gay, DO phosphorus 500 mg tab(s) (K PHOS NEUTRAL) 500 mg ORAL/FEEDING TUBE PRN(NO DISPENSE) Ta, Gay, DO calcium gluconate iv piggyback 2 g in NaCl (iso-osmotic) 100 mL 2 g INTRAVENOUS PRN(NO DISPENSE) Ta, Victor Hugo, DO enoxaparin 40 mg injection (LOVENOX) 40 mg SUBCUTANEOUS q 24 HR TaVictor Hugo, DO 40 mg at 11/14/23 0946 albuterol 2.5 mg /3 mL (0.083 %) 2.5 mg (PROVENTIL) 2.5 mg INHALATION q 4 H PRN Ta, Victor Hugo, DO sodium chloride 0.9 % (flush) 2-10 [...] AST 16 ALT 24 ABG: Invalid input(s): "[id number]" Chest imaging personally reviewed MRSA + NOTED [...] and Airways Line Duration Peripheral 11/13/23 0750 [facility] Right Forearm 20 Gauge 2 days Peripheral 11/13/23 1130 [facility] Short Left Forearm 20 Gauge 1 day [...] neg; cxr no (more content not included)... [facility] 11-14-2023 Note HNO ID: [id number] Author: REBA JONAS RPh Service: Pharmacy Author Type: Pharmacist Type: Plan of Care Filed: 11/22/2023 10:21 Note Text: PHARMACY MEDICATION REVIEW Patient Name: Javier Dickson : 1970 Addendum: medication history reviewed by pharmacist 11/22/2023 Reba Jonas RPh The following medications were updated within the COIL TIER medication list: Medications ADDED to COIL TIER medication list Medications CHANGED on COIL TIER medication list Medications REMOVED from COIL TIER medication list gabapentin (NEURONTIN) 100 mg capsule [...] I have removed 6 medications from the COIL TIER list and I did not find any medications filled for pt. via [employer] e-script. I have not added or changed any COIL TIER medications . Pt. states financial cost has been one of the main reasons he has not taken RX medications and would welcome any help with this in the future. He has used [facility] in the past but if he can get medications from [facility], he would prefer that. Required follow up actions for nursing: Medication history completed by Historian. No nursing follow up required. The below information represents the best possible medication history: Yes Medication history completed by: Bottling Line Attendant: Ranjith Anand (Inventalator) Source of history: Patient: Reliability of source: Appears reliable, clearly identified: Medication name Medication nonadherence identified: Cost Reconciliation completed: Yes Completed by: CAROLTA All COIL TIER medications addressed by CARLOTA Patient interested in Bedside Delivery Services or using [facility] at discharge? Yes. Discharge Pharmacy Updated Preferred outpatient pharmacy: [facility] Allergies: No Known Allergies None Ranjith Anand (Inventalator) phone [phone] 11/14/2023 [facility] 11-14-2023 Note HNO ID: [id number] Author: Kasia Gudino APRN.CNP Service: Critical Care Author Type: Nurse Practitioner Type: Plan of Care Filed: 11/14/2023 11:35 AM Note Text: Voicemail left for patient's son to return call to unit for clinical update. Kasia Gudino APRN.CNP November 14, 2023 11:35 AM [facility] 11-14-2023 Note HNO ID: [id number] Author: Jill Shin MD Service: Pulmonary Disease Author Type: Physician Type: Progress Notes Filed: 11/14/2023 10:50 AM Note Text: [facility] STAFF PHYSICIAN NOTE OF PERSONAL INVOLVEMENT IN CARE Attending Note I have personally performed a face to face assessment of the patient and have reviewed the FIELD ARTILLERY OPERATIONS SPECIALIST/resident note and documentation. I personally participated in the carlos components and performed a substantive portion of the visit and collaborated. I have discussed the case and management of the patient's care. The following comments revise or confirm relevant cralos components of the note. Patient seen and examined. Labs, chest imaging, meds reviewed Last CT Chest - Impression Only No resulted procedures found. Current Facility-Administered Medications Medication Dose Route Frequency Provider Last Rate Last Admin ipratropium-albuterol 3 mL nebulizer solution (DUONEB) 3 mL INHALATION TID Jill Shin MD 3 mL at 11/14/23 0804 lactated ringers iv infusion 100 mL/hr INTRAVENOUS CONTINUOUS Kasia Gudino APRN.BLOWER ROOM ATTENDANT 100 mL/hr at 11/14/23 0805 100 mL/hr at 11/14/23 0805 pantoprazole 40 mg oral liquid (PROTONIX) 40 mg ORAL DAILY (6 AM) Kasia Gudino APRN.BLOWER ROOM ATTENDANT 40 mg at 11/14/23 0946 [START ON 11/15/2023] cefTRIAXone iv piggyback 2 g in dextrose (iso-osmotic) 50 mL (ROCEPHIN) 2 g INTRAVENOUS q 24 H Kasia Gudino APRN.BLOWER ROOM ATTENDANT doxycycline 100 mg in D5W 250 mL Vial-Bag (VIBRAMYCIN) 100 mg INTRAVENOUS q 12 H Vicotr Hugo Varma DO 250 mL/hr at 11/14/23 0806 100 mg at 11/14/23 0806 NaCl 0.9% iv flush bag 20 mL [...] 100 mL 2 g INTRAVENOUS PRN(NO DISPENSE) Ta, Gay, DO enoxaparin 40 mg injection (LOVENOX) 40 mg SUBCUTANEOUS q 24 HR Victor Hugo Varma, DO 40 mg at 11/14/23 0946 albuterol 2.5 mg /3 mL (0.083 %) 2.5 mg (PROVENTIL) 2.5 mg INHALATION q 4 H PRN Ta Gay, DO sodium chloride 0.9 % (flush) 2-10 mL (BD POSIFLUSH) 2-10 mL INTRAVENOUS DIRECTED PRN Jill Shin MD And perflutren lipid microspheres 1.1 mg/mL 1.3 mL injection (DEFINITY) 1.3 mL INTRAVENOUS DIRECTED PRN Jill Shin MD methylPREDNISolone sod succinate(PF) 40 mg injection (SOLU-Medrol) 40 mg INTRAVENOUS q 24 H Victor Hugo Varma DO 40 mg at 11/14/23 0806 LABS: Recent [...] AST 23 ALT 31 ABG: Invalid input(s): "[id number]" Chest imaging personally reviewed MRSA + NOTED [...] 20 Gauge 1 day Peripheral 11/13/23 0750 [facility] Right Forearm 20 Gauge 1 day Peripheral 11/13/23 1130 [facility] Short Left Forearm 20 Gauge <1 day [...] clinically significant de (more content not included)... [facility] 09-06-2023 Emergency department Note Nurse educated pt on inhaler use. Ramona Salas LPN 09/06/231701 [facility] 09-06-2023 Emergency department Note Nurse educated pt on inhaler use. Ramona Salas LPN 09/06/231701 EMERGENCY DEPARTMENT ENCOUNTER Pt Name: Javier Dickson Birthdate 1970 Date of evaluation: 09/06/2023 ED Provider: Danilo Hastings APRN - BLOWER ROOM ATTENDANT Patient seen independently within my scope of practice with an Emergency Medicine attending available for supervision. 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 left side of his [...] tablet (1 tablet Oral Given 09/06/23 1638) [facility] MDM elements: The patient presented with [...] PM PATIENT REFERRED TO: Kelsi Batista MD [address] [place] [address], [address] [facility] [address] DISCHARGE MEDICATIONS: New Prescriptions ALBUTEROL 108 (90 [...] Emergency Medicine Provider YOCASTA Guajardo CNP 09/06/23 2445 [facility] 04-20-2022 Hospital Discharg John Ayala MD [...] sent through Care Everywhere.SOB (Shortness of Breath) (Mongolian)Asthma or COPD: Using a Metered-Dose Inhaler (Mongolian)documented in this encounter [facility] Work Phone: Evaluation note Diagnosis COPD exacerbation (HCC)- Primary Obstructive chronic bronchitis with exacerbation Shortness of breath documented in this encounter [facility] Work Phone: Evaluation note* Diagnosis Screening for condition Screening for unspecified condition documented in this encounter [facility] Work Phone: Evaluation note* Diagnosis Insect bite of head, unspecified part, initial encounter- Primary Chronic obstructive pulmonary disease, unspecified COPD type (HCC) Insect bite of head Face, neck, and scalp except eye, insect bite, nonvenomous, without mention of infection [facility] Diagnosis Localized enlarged lymph nodes- Primary Enlargement of lymph nodes [facility] information [facility]WW[facility] Work Phone: Evaluation note* Diagnosis Chronic respiratory failure with hypoxia (HCC)- Primary Chronic obstructive pulmonary disease, unspecified COPD type (HCC) Bullous emphysema (HCC) Cigarette nicotine dependence without complication [facility] Diagnosis Mastodynia [facility] Diagnosis Mastodynia [facility]* Diagnosis Chronic respiratory failure with hypoxia (HCC) [facility]* Attachments The following attachments cannot be sent through Care Everywhere. * COPD Exacerbation, Adult ED (Mongolian) * COPD Diet (Mongolian) * Insect Bites and Stings Discharge Instructions (Mongolian) * Spider Bites (Mongolian) [facility] ([facility])No reason for referral information availableWWooster Community Hospital Work Phone: Summary Purpose Family History No Family History Records FoundNo Family History Records FoundNo Family History Records FoundNo Family History Records FoundNo Family History Records FoundNo Family History Records FoundNo Family History Records FoundNo Family History Records Found Advance Directives No Advanced Directives Records FoundDocuments on File Type Date Recorded 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 * Head Injury: Closed: General Info (Mongolian) * Lacerations: [place] (Mongolian) * Lacerations: Stitches (Mongolian) documented in this encounter Assessments Diagnosis Injury of head, initial encounter- Primary Laceration of scalp, initial encounter Homelessness Lack of housing Reason for Referral Specialty Diagnoses / Procedures Referred By Contac t Referred To Contact Family Medicine Diagnoses COPD exacerbation (HCC) Shortness of breath John Eddy MD [address] [place] [address] [facility] [address] [place] [phone] Referral ID Status Reason Start Date Expiration Date V isits Requested Visits Authorized [id number] Open Specialty Services Required 04/20/2022 04/20/2023 1 1 Scheduling Instructions [facility] [address] [place], [place] [address] Fx: [phone] Specialty Diagnoses / Procedures Referred By Contac t Referred To Contact CT IMAGING Diagnoses Localized enlarged lymph nodes Procedures CT CHEST W IVCON DIAGNOSTIC COMPUTED TOMOGRAPHY THORAX W/CONTRAST Timi Capellan MD [address] [facility] [address] [place] [address] [place] [id number] Referral ID Status Reason Start Date Expiration Date Visits Requested Visits Authorized [id number] Pending Review Auto-Generat ed Referral 02/13/2024 01/30/2025 1 1 Specialty Diagnoses / Procedures Referred By Contac t Referred To Contact Pulmonology Diagnoses Chronic respiratory failure with hypoxia (HCC) Procedures Complete PFT pre and post bronchodilator Emely Amin MD [address] [facility] [address] [place] [address] [address] [place] [address] Referral ID Status Reason Start Date Expiration Date V isits Requested Visits Authorized [id number] Authorized 04/29/2024 04/24/2025 1 1 Specialty Diagnoses / Procedures Referred By Contac t Referred To Contact Emely Amin MD [address] [place] [address] Referral ID Status Reason Start Date Expiration Date V isits Requested Visits Authorized [id number] Authorized 04/29/2024 04/28/2025 1 1 Referral ID Status Reason Start Date Expiration Date Visits Re quested Visits Authorized [id number] Closed 04/29/2024 04/24/2025 1 1 Chief Complaint and Reason for Visit Chief Complaint LABWORK Chief Complaint LABWORK GROUP HOME LAB WORK Chief Complaint LABWORK GROUP HOME LAB WORK GROUP HOME LAB WORK Chief Complaint Admit Date LABWORK January 31, 2025 5:0 0am Additional Source Comments (unrecognized sect ion and content) No Status Records FoundNo Status Records FoundNo Status Records FoundNo Status Records FoundNo Status Records FoundNo Status Records FoundNo Status Records FoundNo Status Records Found INFORMATION SOURCE (unrecogn ized section and content) DATE CREATED AUTHOR 09/30/2019 [facility] DATE CREATED AUTHOR AUTHOR'S ORGANIZ ATION 01/15/2021 [facility] DATE CREATED AUTHOR AUTHOR'S ORGANIZ ATION 07/20/2022 [facility] DATE CREATED AUTHOR AUTHOR'S ORGANIZ ATION 08/18/2022 [facility] DATE CREATED AUTHOR AUTHOR'S ORGANIZ ATION 01/02/2024 [facility] DATE CREATED AUTHOR AUTHOR'S ORGANIZ ATION 01/30/2024 [facility] DATE CREATED AUTHOR AUTHOR'S ORGANIZ ATION 09/29/2024 [facility] DATE CREATED AUTHOR AUTHOR'S ORGANIZ ATION 09/12/2025 [facility] Source Comments (unrecognize d section and content) In the event this informatio n is protected by the Federal Confidentiality of Alcohol and Drug Abuse Patient Records regulations: The Federal rules restrict any use of the information to criminally investigate or prosecute any alcohol or drug abuse patient.[facility] Hospital[facility] the event this information is protected by the Federal Confidentiality of Alcohol and Drug Abuse Patient Records regulations: The Federal rules restrict any use of the information to criminally investigate or prosecute any alcohol or drug abuse patient.[facility] Hospital[facility] the event this information is protected by the Federal Confidentiality of Alcohol and Drug Abuse Patient Records regulations: The Federal rules restrict any use of the information to criminally investigate or prosecute any alcohol or drug abuse patient.[facility] HospitalIn the event this information is protected by the Federal Confidentiality of Alcohol and Drug Abuse Patient Records regulations: The Federal rules restrict any use of the information to criminally investigate or prosecute any alcohol or drug abuse patient.[facility] Hospital[facility] the event this information is protected by the Federal Confidentiality of Alcohol and Drug Abuse Patient Records regulations: The Federal rules restrict any use of the information to criminally investigate or prosecute any alcohol or drug abuse patient.[facility] Reason for Visit (unrecogniz ed section and content) Reason Comments Head Injury pt arrives via [facility] report of laceration to head , states [...] Reason Comments Insect Bite 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 Reason Onset Date Comments Hospital Follow-up 11/27/2023 Reason Onset Date Comments Telephone Visit 11/28/2023 Needs letter ursula tapia Reason Comments Home Care MD to follow Reason Onset Date Comments update on patient 11/22/2023 Reason Comments Home Care Confirmation Call Reason Onset Date Comments Orders 01/01/2024 Reason Onset Date Comments Other 12/28/2023 Reason Comments Pulm Rehab Letter Sent Reason Onset Date Comments Appointment Request 12/25/2023 DIGITAL PHOTOGRAPHER Appt Reason Comments New Patient COPD He says his breathin g is okay. He says he has a few "lumps" on his chest that are sore and cause him to have trouble breathing. He says these showed up about 2 months ago. Specialty Diagnoses / Procedures Referred By Chato tapia Referred To Contact Pulmonology Diagnoses Chronic obstructive pulmonary disease, unspecified (HCC) Procedures [place] OFFICE/OUTPATIENT NEW MODERATE MDM 45 MINUTES Paula Raphael MD [address] [place] [address] [facility] Pulm [address] [facility] [address] [place] [address] Referral ID Status Reason Start Date Expiration Date V isits Requested Visits Authorized [id number] Pending Review 04/16/2024 04/16/2025 1 1 Specialty Diagnoses / Procedures Referred By Chato tapia Referred To Contact Pulmonology Diagnoses Chronic respiratory failure with hypoxia (HCC) Procedures Complete PFT pre and post bronchodilator Emely Amin MD [address] [address] [address] [place] [address] Referral ID Status Reason Start Date Expiration Date Visits Re quested Visits Authorized [id number] Closed 04/29/2024 04/24/2025 1 1 Ordered Prescriptions [...] over 121 Minutes, ONCE, On Mon04/20/22 at 2000, For 1 dose 2054 (New Bag - [...] 8 mg, IntraVENous, ONCE, On Mon04/20/22 at 2000, For 1 dose 2206 (Given - Provid er: Francia Hoff RN) ipratropium-albuterol (DUONEB) nebulizer solution 1 ampule 1 ampule, Nebulization, ONCE, 1 dose, On Mon04/20/22 at 2000, Initiate RT Bronchodilator Protocol: Yes 2321 (Not Given - Pr ovider: Francia Hoff RN - Reason: Other - Comment: patient was in chatman bed) PRN Medication Order 04/18/2022 04/19/2022 04/20/2022 albuterol sulfate [...] Care Teams (unrecognized sec tion and content) Postbed Stitcher Relationship Specialty Start Date End Date Kelsi Batista MD [address] [place] [address] PCP - General Family Medicine 07/19/22 Postbed Stitcher Relationship Specialty Start Date End Date Kelsi Batista MD [address] [place] [address] PCP - General 07/19/22 Postbed Stitcher Relationship Specialty Start Date End Date Kelsi Batista MD [address] [place] [address]., [address] [place] [address] PCP - General 07/19/22 Postbed Stitcher Relationship Specialty Start Date End Date Carlyle Garcia MD PCP - General Family Medicine 01/10/21 Postbed Stitcher Relationship Specialty Start Date End Date Kelsi Batista MD [address] [place] [address]., [address] [place] [address] PCP - General 07/19/22 Postbed Stitcher Relationship Specialty Start Date End Date Carlyle Garcia MD PCP - General Family Medicine 01/10/21 Karolina Chappell MD [address] [place], [place] [id number] Referring Internal Medicine 01/01/24 Karolina Chappell MD [address] [place], [place] [id number] [phone] Care Provider Internal Medicine 01/01/24 Postbed Stitcher Relationship Specialty Start Date End Date Carlyle Garcia MD PCP - General Family Medicine 01/10/21 Karolina Chappell MD [address] [place], [place] [id number] [phone] Referring Internal Medicine 01/01/24 Karolina Chappell MD [address] [place] [address] [place], [place] [id number] [phone] Home Care Provider Internal Medicine 01/01/24 Postbed Stitcher Relationship Specialty Start Date End Date Kelsi Batista MD [address] [place] [address]., [address] [place] [address] PCP - General 07/19/22 Postbed Stitcher Relationship Specialty Start Date End Date Carlyle Garcia MD PCP - General Family Medicine 01/10/21 Karolina Chappell MD [address] [address] [place] [address] Referring Internal Medicine 01/01/24 Karolina Chappell MD [address] [place] [place] [address] Home Care Provider Internal Medicine 01/01/24 Team Status: Inactive Member Role Status Dates Paula JALLOH Attending Provider Active Team Status: Active Member Role Status Dates Paula JALLOH Attending Provider Active Postbed Stitcher Relationship Specialty Start Date End Date Kelsi Batista MD [address] [place] [address] PCP - General 07/19/22 Postbed Stitcher Relationship Specialty Start Date End Date Paula Raphael MD [address] [place] [address] [address] [place] [address] PCP - [facility] 06/26/24 Postbed Stitcher Relationship Specialty Start Date End Date Paula Raphael MD [address] [place] [address] [address] [place] [address] PCP - [facility] 06/26/24 Postbed Stitcher Relationship Specialty Start Date End Date Paula Raphael MD [address] [place] [address] [address] [place] [address] PCP - [facility] 06/26/24 Team Status: Inactive Member Role Status [...] BE BASED ON THE PRIMARY CLINICAL RECORDS. [facility]. provides no warranty or guarantee of the accuracy or completeness of information in this document.
[2025-10-03 07:38] LABS: Hematocrit 41.6 % (40-54); Hemoglobin 13.3 g/dL (13.0-16.5); Mean Corp Hgb Conc 32.0 g/dL (32-36); Mean Corpuscular Volume 87.8 fL (80-94); Mean Platelet Vol. 9.5 fl (6.2-12.0); Platelet Count 267 K/mm3 (150-450); RBC Distribution Width CV 13.4 % (11.6-14.6); RBC Distribution Width SD 43.5 fl (35.1-43.9); Red Blood Count 4.74 M/mm3 (4.6-6.2); White Blood Count 5.3 K/mm3 (4.4-11.0)
[2025-10-03 07:56] LABS: AST(SGOT) 21 U/L (<=37); Alanine Aminotransfer ALT/SGPT 18 U/L (<=46); Albumin, Serum 4.0 g/dL (3.5-5.0); Alkaline Phosphatase 92 U/L (40-129); Anion Gap 9 (5-15); BUN 16 mg/dL (4-19); BUN/Creat Ratio 18.6 RATIO (10-20); Calcium,Total 9.0 mg/dL (7.6-11.0); Carbon Dioxide 25.6 mmol/L (21.0-32.0); Chloride 104 mmol/L (98-108); Globulin 2.8 g/dL (2.2-4.2); Glucose 96 mg/dL (70-99); Potassium 4.3 mmol/L (3.3-5.1)
== END ==
LOC: OLS.ACW200 05:00
PROVIDERS: Visit Provider Family Medicine
DX: J44.9 Chronic obstructive pulmonary disease, unspecified (principal); R53.81 Other malaise; R26.81 Unsteadiness on feet; R53.83 Other fatigue
CPT/HCPCS: 36415; 80053; 85027

== ENCOUNTER → 2025-10-17 | Outpatient (REF) | payer MEDICAID, SELFPAY ==
--- OUTSIDE RECORDS SUMMARY | 2025-10-17 04:17 | XMS RPT_ITS | CCD ---
Author Organization [facility] Care Team Providers Care Contract Paralegal Name Role Phone Unavailable Primary Care Provider Unavailmitch Batista MD, Kelsi Primary Care Provider [phone] No, PCP Primary Care Unavailable PROVIDER, UNKNOWN Referring Unavailable John Eddy Attending Unavailable KELSI BATISTA Primary Care Unavailable Lisa Cantu Attending Unavailable PROVIDER, UNKNOWN Referring Unavailable KELSI BATISTA Primary Care Unavailable Lisa Cantu Attending Unavailable PROVIDER, UNKNOWN Referring Unavailable KELSI BATISTA Primary Care Unavailable Lisa Cantu Attending Unavailable PROVIDER, UNKNOWN Referring Unavailable Kelsi Batista MD Primary Care Provider [phone] Carlyle Garcia MD Primary Care Provider Karolina Chappell MD Unavailable Karolina Chappell MD Unavailable AGUILAR LOPEZ Attending [...] Drug Class(es) Dates Sig (Normalized) Sig (Original) [id number] 200 actuat albuterol 0.09 mg/actuat metered dose [...] Start: 09-18-2019 End: 09-18-2019 lidocaine-EPINEPHr ine 1 percent-[id number] injection 20 mL Sodium Chloride (3 sources) [...] (4 sources) Drug therapy finding; Translations: [Other circle edger (current) drug therapy] Onset: 11-16-2023 11-16-2023 Episodic [...] 01-31-2025 Anion gap [Moles/Vol] 8 mmol/L 03-[address] [facility] BUN/creatinine ratioOrdered By: Paula Raphael on 01-31-2025 Urea nitrogen/Creatinine [Mass ratio] 22.1 mg/mg High 09-[address] [facility] Bilirubin, totalOrdered By: Paula Raphael on 01-31-2025 Bilirubin [Mass/Vol] 0.22 mg/dL 0.00-1.[address] [facility] Carbon dioxide, total [Moles /volume] in Central venous bloodOrdered By: Paula Raphael on 01-31-2025 CO2 [Moles/Vol] 28.0 mmol/L 21.0-32.[address] [facility] Chloride assayOrdered By: Abby Raphael on 01-31-2025 Chloride [Moles/Vol] 103 mmol/L 98-[address] [facility] Erythrocyte distribution wid th (RBC) [Ratio]Ordered By: Paula Raphael on 01-31-2025 Erythrocyte distribution width (RBC) [Entitic vol] 43.6 fL 35.1-43.[address] [facility] Erythrocyte distribution wid th ratioOrdered By: Paula Raphael on 01-31-2025 Erythrocyte distribution width (RBC) [Ratio] 12.7 % 11.6-14.[address] [facility] GFR/1.73 sq M.predicted sacha g non-blacks MDRD (S/P/Bld) [Vol rate/Area]Ordered By: Paula Raphael on 01-31-2025 Estimated GFR (MDRD) Non-Af Amer 107 >[address] [facility] Comment on above: mL/min/1.73m2 CKD-EP I Creatinine Equation (2020) Hematocrit Auto (Bld) [Volum e fraction]Ordered By: Paula Raphael on 01-31-2025 Hematocrit (Bld) [Volume fraction] 39.8 % Low 40-[address] [facility] Hemoglobin measurementOrdere d By: Paula Raphael on 01-31-2025 Hemoglobin (Bld) [Mass/Vol] 13.1 g/dL 13.0-16.[address] [facility] Laboratory - Chemistry and C hemistry - challengeOrdered By: Paula Raphael on 01-31-2025 AST [Catalytic activity/Vol] 25 U/L <[address] [facility] MCV (mean corpuscular volume ) determinationOrdered By: Paula Raphael on 01-31-2025 MCV (RBC) [Entitic vol] 92.3 fL 80-94 [facility] Mean corpuscular hemoglobin (MCH) determinationOrdered By: Paula Raphael on 01-31-2025 MCH (RBC) [Entitic mass] 30.4 pg 27.0-32.[address] [facility] Mean corpuscular hemoglobin concentration (MCHC) determinationOrdered By: Paula Raphael on 01-31-2025 MCHC (RBC) [Mass/Vol] 32.9 g/dL 32-[address] [facility] Mean platelet volume determi nationOrdered By: Paula Raphael on 01-31-2025 Platelet mean volume (Bld) [Entitic vol] 9.6 fL 6.2-12.[address] [facility] Platelet countOrdered By: Abby Raphael on 01-31-2025 Platelets (Bld) [#/Vol] 232 10*3/uL 150-[address] [facility] Potassium (Unsp spec) [Mass/ Vol]Ordered By: Paula Raphael on 01-31-2025 Potassium [Moles/Vol] 3.9 mmol/L 3.3-5.[address] [facility] RBC Auto (Bld) [#/Vol]Ordere d By: Paula Raphael on 01-31-2025 RBC (Bld) [#/Vol] 4.31 10*6/uL Low 4.6-6.2 [facility] Serum creatinine measurement (mass/volume)Ordered By: Paula Raphael on 01-31-2025 Creatinine [Mass/Vol] 0.78 mg/dL 0.70-1.[address] [facility] Serum globulin measurementOr dered By: Paula Raphael on 01-31-2025 Globulin (S) [Mass/Vol] 2.4 g/dL 2.2-4.2 [facility] Serum glucose measurement (m ass/volume)Ordered By: Paula Raphael on 01-31-2025 Glucose [Mass/Vol] 86 mg/dL 70-99 [facility] Serum or plasma alanine villagomez otransferase (ALT) measurementOrdered By: Paula Raphael on 01-31-2025 ALT [Catalytic activity/Vol] 34 U/L <[address] [facility] Serum or plasma albumin wayne urement (mass/volume)Ordered By: Paula Raphael on 01-31-2025 Albumin [Mass/Vol] 4.0 g/dL 3.5-5.0 [facility] Serum or plasma albumin/glob ulin mass ratioOrdered By: Paula Raphael on 01-31-2025 Albumin/Globulin [Mass ratio] 1.6 {ratio} 0.9-2.[address] [facility] Serum or plasma alkaline leodan sphatase measurementOrdered By: Paula Raphael on 01-31-2025 ALP [Catalytic activity/Vol] 100 U/L 40-[address] [facility] Serum or plasma calcium wayne urement (mass/volume)Ordered By: Paula Raphael on 01-31-2025 Calcium [Mass/Vol] 8.9 mg/dL 7.6-11.0 [facility] Serum or plasma urea nitroge n measurement (mass/volume)Ordered By: Paula Raphael on 01-31-2025 Urea nitrogen [Mass/Vol] 17 mg/dL 4-[address] [facility] Sodium levelOrdered By: Víctor Raphael on 01-31-2025 Sodium [Moles/Vol] 139 mmol/L 133-145 [facility] Total proteinOrdered By: Otto Raphael on 01-31-2025 Protein [Mass/Vol] 6.4 g/dL 5.9-8.4 [facility] White blood cell (WBC) count Ordered By: Paula Raphael on 01-31-2025 WBC (Bld) [#/Vol] 5.7 10*3/uL 4.4-11.0 [facility] 36on 09-26-2024 36 Nurse Beto called i n from [facility] [place] on behalf of Pt. Explained Pt was just put on Trelegy and she wanted to know If he was to continue taking Advair. Informed Beto that per Pt's last visit note Dr. Amin replaced Pt's Advair with Trelegy and he is to only be taking Trelegy. Beto verbalized understanding. [facility] BI US BREAST LIMITED BILATER [...] images: BB's = Nipples; skin lesions Open [place] = Palpable Line = Scar TISSUE DENSITY: [...] Electronically Signed Date/Time: 06/27/2024 1:34 PM EDT [facility] DBT Breast - bilateral diagn [...] images: BB's = Nipples; skin lesions Open [place] = Palpable Line = Scar TISSUE DENSITY: [...] ultrasound demonstrated no mass or other abnormality. [facility] Rocio Fuller MD - 06/27/2024 [...] images: BB's = Nipples; skin lesions Open [place] = Palpable Line = Scar TISSUE DENSITY: [...] Electronically Signed Date/Time: 06/27/2024 1:34 PM EDT [facility] [employer] Radiology Study observation (narrative) [facility] No Panel Informationon 06-27 No mammographic or [...] Electronically Signed Date/Time: 06/27/2024 1:34 PM EDT [facility] No Panel InformationOrdered By: Rocio Fuller on 06-27-2024 [facility] [employer] Work Phone: Breast - bilateral limite don [...] images: BB's = Nipples; skin lesions Open [place] = Palpable Line = Scar TISSUE DENSITY: [...] ultrasound demonstrated no mass or other abnormality. [facility] Rocio Fuller MD - 06/27/2024 [...] images: BB's = Nipples; skin lesions Open [place] = Palpable Line = Scar TISSUE DENSITY: [...] Electronically Signed Date/Time: 06/27/2024 1:34 PM EDT [facility] Radiology Study observation (narrative) [facility] Office Visiton 04-29-2024 Follow-up visit [id number] Javier Dickson 1970 M Date Provider Department Center 04/29/2024 [id number] AMIN [facility] None Family History Problem Relation Age of Onset Breast cancer Mother Cataracts Mother COPD Mother Cataracts Father COPD Father Family Status - Relation Status Age at Mother Father Level of Service:89864 [place] OFFICE/OUTPATIENT NEW MODERATE MDM 45 MINUTES Reason for Visit and Comments: New Patient [542] COPD [313] - He says his breathing is okay. He says he has a few "lumps" on his chest that are sore and cause him to have trouble breathing. He says these showed up about 2 months ago. Normal [facility] Basophil percentageOrdered B y: Paula Chapinhner on 02-08-2024 Bilirubin [Mass/Vol] 0.40 mg/dL 0.20-1.[address] [facility] Comment on above: For patients on eltr ombopag therapy, use of Dimension [place] TBIL is not recommended. Chloride [Moles/Vol] 107 mmol/L 98-[address] [facility] Cholesterol [Mass/Vol] 171 mg/dL <200 [facility] Comment on above: <200 mg/dL Desirable 200-240 mg/dL Borderline >240 mg/dL High Risk Glucose [Mass/Vol] 78 mg/dL 74-106 [facility] Hemoglobin (Bld) [Mass/Vol] 12.9 g/dL 13.0-16.[address] [facility] Potassium [Moles/Vol] 3.8 mmol/L 3.5-5.[address] [facility] Protein [Mass/Vol] 6.1 g/dL 6.4-8.2 [facility] Sodium [Moles/Vol] 138 mmol/L 136-145 [facility] Triglyceride [Mass/Vol] 70 mg/dL <199 [facility] Comment on above: The drugs N-Acetylcy steine and Metamizole may falsely depress this assay.Serum Triglycerides Reference Interval Normal <150 mg/dL Borderline high 150 - 199 mg/dL High 200 - 499 mg/dL Very High > or = 500 mg/dL WBC (Bld) [#/Vol] 5.8 10*3/uL 4.4-11.0 [facility] Determination of erythrocyte mean corpuscular volume (MCV)Ordered By: Paula Raphael on 02-08-2024 MCV (RBC) [Entitic vol] 89.1 fL 80-94 [facility] Erythrocyte distribution wid th ratioOrdered By: Paula Raphael on 02-08-2024 Erythrocyte distribution width (RBC) [Ratio] 12.7 % 11.6-14.[address] [facility] Erythrocyte distribution wid th standard deviationOrdered By: Paula Raphael on 02-08-2024 Erythrocyte distribution width (RBC) [Entitic vol] 41.6 fL 35.1-43.[address] [facility] Erythrocyte sedimentation ra teOrdered By: Paula Raphael on 02-08-2024 ESR (Bld) [Velocity] 5 mm/h 0-[address] [facility] Hematocrit Auto (Bld) [Volum e fraction]Ordered By: Paula Raphael on 02-08-2024 Hematocrit (Bld) [Volume fraction] 39.4 % 40-[address] [facility] Laboratory - Chemistry and C hemistry - challengeOrdered By: Paula Raphael on 02-08-2024 Albumin/Globulin [Mass ratio] 1.1 {ratio} 0.9-2.[address] [facility] ALP [Catalytic activity/Vol] 74 U/L 45-[address] [facility] ALT [Catalytic activity/Vol] 59 U/L 16-[address] [facility] Cholesterol in HDL [Mass/Vol] 60 mg/dL >[address] [facility] Comment on above: The drugs N-Acetylcy steine and Metamizole may falsely depress this assay. Reference Range HDL <40 mg/dL Low HDL Cholesterol HDL >or= 60 mg/dL High HDL Cholesterol Cholesterol in LDL [Mass/Vol] 97 mg/dL 0-[address] [facility] CO2 [Moles/Vol] 27.0 mmol/L 21.0-32.[address] [facility] Globulin (S) [Mass/Vol] 2.9 g/dL 2.2-4.2 [facility] Urea nitrogen/Creatinine [Mass ratio] 12.1 mg/mg 10-[address] [facility] Laboratory - Hematology and Cell countsOrdered By: Paula Raphael on 02-08-2024 MCH (RBC) [Entitic mass] 29.2 pg 27.0-32.[address] [facility] MCHC (RBC) [Mass/Vol] 32.7 g/dL 32-[address] [facility] Platelet mean volume (Bld) [Entitic vol] 9.8 fL 6.2-12.[address] [facility] Platelets (Bld) [#/Vol] 227 10*3/uL 150-[address] [facility] No Panel InformationOrdered By: Paula Raphael on 02-08-2024 C-Reactive Protein Extended Range < 2.90 mg/L 0.0-3.[address] [facility] Comment on above: C-Reactive Protein ( CRP) provides useful information for thediagnosis, therapy and monitoring of inflammatory processesand associated diseases. For the evaluation of Relative Riskfor Cardiovascular Disease, a High Sensitivity CRP (HSCRP)should be ordered. Estimated GFR (MDRD) Amer 142 mL/min >[address] [facility] Comment on above: GFR Calc Estimated GFR (MDRD) Non-Af Amer 118 mL/min >[address] [facility] Comment on above: Non- GFR Calc VLDL Cholesterol 14 mg/dL 5-[address] [facility] RBC Auto (Bld) [#/Vol]Ordere d By: Paula Raphael on 02-08-2024 RBC (Bld) [#/Vol] 4.42 10*6/uL 4.6-6.2 [facility] Serum or plasma calcium wayne urement (mass/volume)Ordered By: Paula Raphael on 02-08-2024 Calcium [Mass/Vol] 8.8 mg/dL 8.5-10.1 [facility] Serum or plasma creatinine m easurement (mass/volume)Ordered By: Paula Raphael on 02-08-2024 Creatinine [Mass/Vol] 0.74 mg/dL 0.70-1.[address] [facility] Comment on above: The validity of the calculated GFR & GFRAA in patients over 70 years has not been determined. Clinical correlation is essential. Serum or plasma urea nitroge n measurement (mass/volume)Ordered By: Paula Raphael on 02-08-2024 Urea nitrogen [Mass/Vol] 9 mg/dL 7-[address] [facility] Thin prep Papanicolaou smear with manual screeningOrdered By: Paula Raphael on 02-08-2024 Thin prep Papanicolaou smear with manual screening 3.2 g/dL 3.2-5.[address] [facility] Thin prep Papanicolaou smear with manual screening 32 U/L 15-[address] [facility] Thin prep Papanicolaou smear with manual screening 4 5-[address] [facility] Whole blood hemoglobin A1c/t otal hemoglobin ratio (mass fraction)Ordered By: Paula Raphael on 02-08-2024 HbA1c (Bld) [Mass fraction] 5.8 % 3.8-5.[address] [facility] Comment on above: Normal < 5.7 % Predi abetic 5.7 - 6.4 % Diabetic >or= 6.5 % Please note range changes. Felice 01-12-2024 ABIEL Telephone ([facility]) JAVIER DICKSON ([id number]) 1970 Date Time Provider Department 01/12/24 EMILY FARRIS During your visit today, we recorded the following information about you: Emily Farris, Virtualization Engineer 01/12/2024 8:38 AM Signed Sent letter to patient regarding Pulmonary Rehab requesting response by 01/26/2024. Emily Farris Virtualization Engineer 01/29/2024 12:51 PM Signed Attempts to reach patient via phone regarding Cardiopulmonary Rehab referral have been unsuccessful. No response from letter sent in mail. Will consider no response a patient deferral of services at this time. Emily Farris, [facility], Cardiopulmonary Rehab [id number] Allergies As of Date: 01/12/2024 (No Known Allergies) Date Reviewed: 01/01/2024 Reviewed by: Deanna Flores APRN.[facility] - Fully Assessed Reason for Visit: Pulm Rehab [7073] Cmt: Letter Sent Prescriptions as of 01/29/2024 [...] Status:Closed by EMILY FARRIS on 01/12/24 Normal [facility] Basophil percentageOrdered B y: Paula Raphael on 01-09-2024 Bilirubin [Mass/Vol] 0.30 mg/dL 0.20-1.[address] [facility] Comment on above: For patients on eltr ombopag therapy, use of Dimension [place] TBIL is not recommended. Chloride [Moles/Vol] 103 mmol/L 98-[address] [facility] Cholesterol [Mass/Vol] 186 mg/dL <200 [facility] Comment on above: <200 mg/dL Desirable 200-240 mg/dL Borderline >240 mg/dL High Risk Glucose [Mass/Vol] 89 mg/dL 74-106 [facility] Hemoglobin (Bld) [Mass/Vol] 13.4 g/dL 13.0-16.[address] [facility] Potassium [Moles/Vol] 4.5 mmol/L 3.5-5.[address] [facility] Protein [Mass/Vol] 6.5 g/dL 6.4-8.2 [facility] Sodium [Moles/Vol] 139 mmol/L 136-145 [facility] Triglyceride [Mass/Vol] 41 mg/dL <199 [facility] Comment on above: The drugs N-Acetylcy steine and Metamizole may falsely depress this assay.Serum Triglycerides Reference Interval Normal <150 mg/dL Borderline high 150 - 199 mg/dL High 200 - 499 mg/dL Very High > or = 500 mg/dL WBC (Bld) [#/Vol] 8.1 10*3/uL 4.4-11.0 [facility] Determination of erythrocyte mean corpuscular volume (MCV)Ordered By: Paula Raphael on 01-09-2024 MCV (RBC) [Entitic vol] 96.3 fL 80-94 [facility] Erythrocyte distribution wid th ratioOrdered By: Paula Raphael on 01-09-2024 Erythrocyte distribution width (RBC) [Ratio] 13.5 % 11.6-14.[address] [facility] Erythrocyte distribution wid th standard deviationOrdered By: Paula Raphael on 01-09-2024 Erythrocyte distribution width (RBC) [Entitic vol] 48.1 fL 35.1-43.[address] [facility] Hematocrit Auto (Bld) [Volum e fraction]Ordered By: Paula Raphael on 01-09-2024 Hematocrit (Bld) [Volume fraction] 44.3 % 40-[address] [facility] Laboratory - Chemistry and C hemistry - challengeOrdered By: Paula Raphael on 01-09-2024 Albumin/Globulin [Mass ratio] 1.0 {ratio} 0.9-2.[address] [facility] ALP [Catalytic activity/Vol] 95 U/L 45-[address] [facility] ALT [Catalytic activity/Vol] 135 U/L 16-[address] [facility] Cholesterol in HDL [Mass/Vol] 76 mg/dL >[address] [facility] Comment on above: The drugs N-Acetylcy steine and Metamizole may falsely depress this assay. Reference Range HDL <40 mg/dL Low HDL Cholesterol HDL >or= 60 mg/dL High HDL Cholesterol Cholesterol in LDL [Mass/Vol] 102 mg/dL 0-[address] [facility] CO2 [Moles/Vol] 34.0 mmol/L 21.0-32.[address] [facility] Globulin (S) [Mass/Vol] 3.3 g/dL 2.2-4.2 [facility] Magnesium [Mass/Vol] 2.0 mg/dL 1.6-2.[address] [facility] Urea nitrogen/Creatinine [Mass ratio] 23.5 mg/mg 10-[address] [facility] Laboratory - Hematology and Cell countsOrdered By: Paula Raphael on 01-09-2024 MCH (RBC) [Entitic mass] 29.1 pg 27.0-32.[address] [facility] MCHC (RBC) [Mass/Vol] 30.2 g/dL 32-[address] [facility] Platelet mean volume (Bld) [Entitic vol] 10.1 fL 6.2-12.[address] [facility] Platelets (Bld) [#/Vol] 256 10*3/uL 150-[address] [facility] No Panel InformationOrdered By: Paula Raphael on 01-09-2024 Estimated GFR (MDRD) Amer 169 mL/min >[address] [facility] Comment on above: GFR Calc Estimated GFR (MDRD) Non-Af Amer 140 mL/min >[address] [facility] Comment on above: Non- GFR Calc Vitamin D 25-Hydroxy 20.0 ng/mL [facility] Comment on above: Vitamin D 25(OH) Sta tus Range Deficiency <20 ng/mL (50nmol/L) Insufficiency 20 - 30 ng/mL (50 - 75 nmol/L) Sufficiency 30 - 100 ng/mL (75 - 250 nmol/L) Toxicity >100 ng/mL (>250 nmol/L) VLDL Cholesterol 8 mg/dL 5-[address] [facility] RBC Auto (Bld) [#/Vol]Ordere d By: Paula Raphael on 01-09-2024 RBC (Bld) [#/Vol] 4.60 10*6/uL 4.6-6.2 [facility] Serum or plasma calcium wayne urement (mass/volume)Ordered By: Paula Raphael on 01-09-2024 Calcium [Mass/Vol] 9.0 mg/dL 8.5-10.1 [facility] Serum or plasma creatinine m easurement (mass/volume)Ordered By: Paula Raphael on 01-09-2024 Creatinine [Mass/Vol] 0.64 mg/dL 0.70-1.[address] [facility] Comment on above: The validity of the calculated GFR & GFRAA in patients over 70 years has not been determined. Clinical correlation is essential. Serum or plasma thyroid stim ulating hormone (TSH) measurement (units/volume)Ordered By: Paula Raphael on 01-09-2024 TSH Qn 1.07 uIU/mL 0.358-3.[address] [facility] Serum or plasma urea nitroge n measurement (mass/volume)Ordered By: Paula Raphael on 01-09-2024 Urea nitrogen [Mass/Vol] 15 mg/dL 7-[address] [facility] Serum or plasma uric acid me asurement (mass/volume)Ordered By: Paula Rapahel on 01-09-2024 Urate [Mass/Vol] 4.2 mg/dL 3.5-7.[address] [facility] Comment on above: The drugs N-Acetylcy steine and Metamizole may falsely depress this assay. Thin prep Papanicolaou smear with manual screeningOrdered By: Paula Raphael on 01-09-2024 Thin prep Papanicolaou smear with manual screening 3.2 g/dL 3.2-5.[address] [facility] Thin prep Papanicolaou smear with manual screening 37 U/L 15-[address] [facility] Thin prep Papanicolaou smear with manual screening 2 5-[address] [facility] Whole blood hemoglobin A1c/t otal hemoglobin ratio (mass fraction)Ordered By: Paula Raphael on 01-09-2024 HbA1c (Bld) [Mass fraction] 6.0 % 3.8-5.[address] [facility] Comment on above: Normal < 5.7 % Predi abetic 5.7 - 6.4 % Diabetic >or= 6.5 % Please note range changes. Basophil percentageOrdered B y: Paula Raphael on 01-08-2024 Bilirubin [Mass/Vol] 0.20 mg/dL 0.20-1.[address] [facility] Comment on above: For patients on eltr ombopag therapy, use of Dimension [place] TBIL is not recommended. Chloride [Moles/Vol] 104 mmol/L 98-[address] [facility] Cholesterol [Mass/Vol] 188 mg/dL <200 [facility] Comment on above: <200 mg/dL Desirable 200-240 mg/dL Borderline >240 mg/dL High Risk Glucose [Mass/Vol] 89 mg/dL 74-106 [facility] Hemoglobin (Bld) [Mass/Vol] 13.7 g/dL 13.0-16.[address] [facility] Potassium [Moles/Vol] 4.3 mmol/L 3.5-5.[address] [facility] Protein [Mass/Vol] 6.6 g/dL 6.4-8.2 [facility] Sodium [Moles/Vol] 138 mmol/L 136-145 [facility] Triglyceride [Mass/Vol] 32 mg/dL <199 [facility] Comment on above: The drugs N-Acetylcy steine and Metamizole may falsely depress this assay.Serum Triglycerides Reference Interval Normal <150 mg/dL Borderline high 150 - 199 mg/dL High 200 - 499 mg/dL Very High > or = 500 mg/dL WBC (Bld) [#/Vol] 8.5 10*3/uL 4.4-11.0 [facility] 01-08-[address] [facility] Telephone ([facility]) JAVIER DICKSON ([id number]) 1970 M Date Time Provider Department 01/08/24 MIRLANDE BARTH [facility] During your visit today, we recorded the following information about you: Mirlande Thompson 01/08/2024 9:49 AM Signed Patient was discharged from [facility] 01-05-24 with an order to schedule with the [facility]. However, the patient was then immediately admitted to a custodial facility. A letter was mailed to the patient asking them to contact the Clinic upon discharge from the facility. Allergies As of Date: 01/08/2024 (No Known Allergies) Date Reviewed: 01/01/2024 Reviewed by: Deanna Flores APRN.[facility] - Fully Assessed Reason for Visit: [...] (RBC) [Entitic vol] 97.8 fL 80-94 [facility] Erythrocyte distribution wid th ratioOrdered By: Paula Raphael on 01-08-2024 Erythrocyte distribution width (RBC) [Ratio] 13.5 % 11.6-14.[address] [facility] Erythrocyte distribution wid th standard deviationOrdered By: Paula Raphael on 01-08-2024 Erythrocyte distribution width (RBC) [Entitic vol] 48.8 fL 35.1-43.[address] [facility] Hematocrit Auto (Bld) [Volum e fraction]Ordered By: Paula Raphael on 01-08-2024 Hematocrit (Bld) [Volume fraction] 45.1 % 40-[address] [facility] Laboratory - Chemistry and C hemistry - challengeOrdered By: Paula Raphael on 01-08-2024 Albumin/Globulin [Mass ratio] 0.9 {ratio} 0.9-2.[address] [facility] ALP [Catalytic activity/Vol] 113 U/L 45-[address] [facility] ALT [Catalytic activity/Vol] 151 U/L 16-[address] [facility] Cholesterol in HDL [Mass/Vol] 79 mg/dL >[address] [facility] Comment on above: The drugs N-Acetylcy steine and Metamizole may falsely depress this assay. Reference Range HDL <40 mg/dL Low HDL Cholesterol HDL >or= 60 mg/dL High HDL Cholesterol Cholesterol in LDL [Mass/Vol] 103 mg/dL 0-[address] [facility] CO2 [Moles/Vol] 31.0 mmol/L 21.0-32.[address] [facility] Globulin (S) [Mass/Vol] 3.4 g/dL 2.2-4.2 [facility] Magnesium [Mass/Vol] 2.0 mg/dL 1.6-2.[address] [facility] Urea nitrogen/Creatinine [Mass ratio] 21.8 mg/mg 10-[address] [facility] Laboratory - Hematology and Cell countsOrdered By: Paula Raphael on 01-08-2024 MCH (RBC) [Entitic mass] 29.7 pg 27.0-32.[address] [facility] MCHC (RBC) [Mass/Vol] 30.4 g/dL 32-[address] [facility] Platelet mean volume (Bld) [Entitic vol] 10.1 fL 6.2-12.[address] [facility] Platelets (Bld) [#/Vol] 253 10*3/uL 150-[address] [facility] No Panel InformationOrdered By: Paula Raphael on 01-08-2024 Estimated GFR (MDRD) Amer 183 mL/min >[address] [facility] Comment on above: GFR Calc Estimated GFR (MDRD) Non-Af Amer 151 mL/min >[address] [facility] Comment on above: Non- GFR Calc Vitamin D 25-Hydroxy 16.6 ng/mL [facility] Comment on above: Vitamin D 25(OH) Sta tus Range Deficiency <20 ng/mL (50nmol/L) Insufficiency 20 - 30 ng/mL (50 - 75 nmol/L) Sufficiency 30 - 100 ng/mL (75 - 250 nmol/L) Toxicity >100 ng/mL (>250 nmol/L) VLDL Cholesterol 6 mg/dL 5-[address] [facility] RBC Auto (Bld) [#/Vol]Ordere d By: Paula Raphael on 01-08-2024 RBC (Bld) [#/Vol] 4.61 10*6/uL 4.6-6.2 [facility] Serum or plasma calcium wayne urement (mass/volume)Ordered By: Paula Raphael on 01-08-2024 Calcium [Mass/Vol] 9.0 mg/dL 8.5-10.1 [facility] Serum or plasma creatinine m easurement (mass/volume)Ordered By: Paula Raphael on 01-08-2024 Creatinine [Mass/Vol] 0.60 mg/dL 0.70-1.[address] [facility] Comment on above: The validity of the calculated GFR & GFRAA in patients over 70 years has not been determined. Clinical correlation is essential. Serum or plasma thyroid stim ulating hormone (TSH) measurement (units/volume)Ordered By: Paula Raphael on 01-08-2024 TSH Qn 1.21 uIU/mL 0.358-3.[address] [facility] Serum or plasma urea nitroge n measurement (mass/volume)Ordered By: Paula Raphael on 01-08-2024 Urea nitrogen [Mass/Vol] 13 mg/dL 7-[address] [facility] Serum or plasma uric acid me asurement (mass/volume)Ordered By: Paula Raphael on 01-08-2024 Urate [Mass/Vol] 3.8 mg/dL 3.5-7.[address] [facility] Comment on above: The drugs N-Acetylcy steine and Metamizole may falsely depress this assay. Thin prep Papanicolaou smear with manual screeningOrdered By: Paula Raphael on 01-08-2024 Thin prep Papanicolaou smear with manual screening 3.2 g/dL 3.2-5.[address] [facility] Thin prep Papanicolaou smear with manual screening 38 U/L 15-[address] [facility] Thin prep Papanicolaou smear with manual screening 3 5-[address] [facility] Whole blood hemoglobin A1c/t otal hemoglobin ratio (mass fraction)Ordered By: Paula Raphael on 01-08-2024 HbA1c (Bld) [Mass fraction] 5.8 % 3.8-5.[address] [facility] Comment on above: Normal < 5.7 % Predi abetic 5.7 - 6.4 % Diabetic >or= 6.5 % Please note range changes. 36on 01-05-2024 36 Called patient, patient's vm is not set up yet Normal [facility] CNDSon 01-05-2024 [facility] HNO ID: [id number] Author: AGUILAR LOPEZ MD Service: Hospital Medicine [...] monitor resolution. Patient is being discharged to custodial facility Labs and Procedures Pending at Discharge: No pending results. Consulting Teams During Hospitalization: None Patient Condition @ Discharge: Stable Discharge Disposition: Half-Way Facility FOLLOW UP: with PCP in 1 [...] were sent to e- [id number] [place] [address] - [address] [facility] - [phone] [address]OSS [facility] [address] [address] [facility] [address] Hours: 24-hours ipratropium-albuterol 0.5 mg-3 mg(2.5 mg base)/3 mL Nebu I have performed the qdiw-er-ygin and relevant services for a total of [...] January 05, 2024 TIME: 11:40 AM Normal [facility] THERAPY NTon 01-05-2024 THERAPY NT HNO ID: [id number] Author: ANJEL QUINONES PT Service: Physical Therapy Author Type: Physical Therapist Type: Therapy (PT/OT/Speech/Resp) Filed: 01/05/2024 11:58 Note Text: Physical Therapy Treatment Summary SERVICE DATE: 01/05/2024 SERVICE TIME: 1132 to 1155 ROOM: [place] [address] PT 6 Clicks Score: 22 DISCHARGE RECOMMENDATIONS [...] breath. Son works during the day but yfzjsuer-xw-mms at home, however patient reports being too stubborn to ask for assistance SUBJECTIVE Pt pleasant and agreeable to PT. THERAPY DIAGNOSIS Reduced mobility-other, Muscle Weakness (generalized), Unsteadiness on feet, General symptoms and signs-other TREATMENT INTERVENTIONS Gait Training (71297), Therapeutic Exercise (62682) Timed Code Treatment (minutes): 23 Skilled Treatment Time (minutes): 23 Therapeutic Exercise (91531) Treatment Minutes: 10 $ Therapeutic Exercise (89496) Billed Units: 1 unit Exercise Ankle Pumps (number of reps): 10 LAQ (number of reps): 10 Exercise: Seated marches x 10 reps each. Cues for increased ROM and slower speed for improved quality of exercises. Gait Training (31450) Treatment Minutes: 13 $ Gait Training (69160) Billed Units: 1 unit Gait training to [...] Stand Trans (more content not included)... Normal [facility] THERAPY NTon 01-04-2024 THERAPY NT HNO ID: [id number] Author: ALBERT PEGUERO, PT Service: Physical Therapy Author Type: Physical Therapist Type: Therapy (PT/OT/Speech/Resp) Filed: 01/04/2024 09:55 Note Text: Physical Therapy Treatment Summary SERVICE DATE: 01/04/2024 SERVICE TIME: 918 to 941 ROOM: [place] [address] PT 6 Clicks Score: 22 DISCHARGE RECOMMENDATIONS [...] breath. Son works during the day but keuacgao-lv-nni at home, however patient reports being too stubborn to ask for assistance SUBJECTIVE Pt pleasant and agreeable to PT. THERAPY DIAGNOSIS Muscle Weakness (generalized), Unsteadiness on feet, General symptoms and signs-other TREATMENT INTERVENTIONS Therapeutic Activity (03109), Gait Training (33342) Therapeutic Activity (28429) Treatment Minutes: 10 $ Therapeutic Activity (39373) Billed Units: 1 unit Provided skilled monitoring of vitals signs with mobility and discussed results with pt. Edu in norms for SpO2 and expected drops with activity given his COPD. Discussed concern for adequate oxygenation if drops below 90%, however if this recovers with rest within a couple minutes this is a good thing. Gait Training (79805) Treatment Minutes: 13 $ Gait Training (16740) Billed Units: 1 unit Timed Code Treatment [...] Training Plan for Next Visit: Gait Training, Pipe Stem Sawyer (more content not included)... Normal [facility] ALL[facility] HEALTHon 01-02-2024 [facility] HNO ID: [id number] Author: EMILY FARRIS, Virtualization Engineer Service: Pulmonary Rehab Author Type: Virtualization Engineer Type: Allied Health Filed: 01/02/2024 10:27 Note [...] and/or family verbalizes understanding. Signature: Emily Farris Virtualization Engineer Pager: [phone] Date: January 02, 2024 Time: 10:24 AM Normal [facility] 36on 01-01-2024 36 Name of caller: Ayleen Contact phone number: [phone] Relationship to Patient: [facility] Provider: Luis E Practice: [facility] Chief Complaint/Reason for Call: Ayleen called to see if the doctor would follow for home care. I released the message to her about the patient will need an appointment. She said she will note that. Please advise Best time of day caller can be reached: any Patient advised that office/PCP has 24-48 business hours to return their call: No Normal [facility] Felice 01-01-2024 CNPN Telephone (HCSIND) JAVIER DICKSON ([id number]) 1970 M Date Time Provider Department 01/01/24 BETO CRENSHAW ANTWAN During your visit today, we recorded the following information about you: Beto Crenshaw 01/01/2024 2:00 PM Signed Jacob there! (Spoke with: Javier ) My name is Beto Crenshaw and I'm calling from [facility]. Your doctor wants to make [...] address will we be seeing you at? [facility] [place] [id number] Do you have any upcoming appointments or [...] Date Reviewed: 01/01/2024 Reviewed by: Deanna Flores APRN.POP SINGER - Fully Assessed Reason for Visit: Home [...] smoker [Z87 (more content not included)... Normal [facility] ABIEL Telephone (AKPRAD) JAVIER DICKSON ([id number]) 1970 M Date Time Provider Department 01/01/24 DEANNA FLORES During your visit today, we recorded the following information about you: Deanna Flores APRN.POP SINGER 01/01/2024 10:[address] Capellan, Please sign the orders for Javier Dickson (f/u CT chest in 6 weeks for resolution of ZACHERY) The patient will also need a follow up with our office afterwards. Thank you! Deanna Flores APRN.POP SINGER January 01, 2024 10:46 AM Allergies As of Date: 01/01/2024 (No Known Allergies) Date Reviewed: 01/01/2024 Reviewed by: Deanna Flores APRN.POP SINGER - Fully Assessed Reason for Visit: Orders [681] Primary Visit Diagnosis:Localized enlarged lymph nodes [R59.0] Order(s):CT CHEST W IVCON [4863582] Order #: [id number] FUTURE iv contrast (will be provided with [facility] NUTRITION HNO ID: [id number] Author: DEYANIRA GARCÍA RD Service: Nutrition Therapy [...] Plan: Continue current diet (Regular) Supplements: Boost [facility] (will decrease to daily) Medications: Stool [...] NOW Question Answer Comment Supplement 1 BOOST [facility] STRAWBERRY Supplement 1 Frequency BREAKFAST Supplement 1 Frequency DINNER 12/27/23 1315 12/27/23 1030 DIET REGULAR START NOW 12/27/23 1026 GI Symptoms: None MNT Billing: $ Reassessment: 1-15 minutes SIGNATURE: Deyanira García RD PATIENT NAME: Javier Dickson DATE: January 01, 2024 TIME: 9:40 AM Normal [facility] THERAPY NTon 01-01-2024 THERAPY NT HNO ID: [id number] Author: HOMA DELGADILLO, ONUR Service: Respiratory Therapy [...] pulmonary rehab at this time . Normal [facility] Basic metabolic 2000 panelon 12-30-2023 Anion gap [Moles/Vol] 6 mmol/L Low 9-18 [facility] Comment on above: Order Comment: Meng blancas Type: BLOOD SPECIMEN Ordering Facility: [facility] Address: [address] [place] [address] Performed By: #### 2 4321-2 #### [facility] CLIA [id number] [address] [place] [address] [place] Calcium [Mass/Vol] 8.6 mg/dL Normal 8.5-10.2 [facility] Comment on above: Order Comment: Meng blancas Type: BLOOD SPECIMEN Ordering Facility: [facility] Address: [address] [place] [address] Performed By: #### 2 4321-2 #### [facility] CLIA [id number] [address] [place] Chloride [Moles/Vol] 96 mmol/L Low 97-105 [facility] Comment on above: Order Comment: Speci men Type: BLOOD SPECIMEN Ordering Facility: [facility] Address: [address] [place] [address] Performed By: #### 2 4321-2 #### [facility] CLIA [id number] [address] [place] CO2 [Moles/Vol] 38 mmol/L High 22-30 [facility] Comment on above: Order Comment: Speci men Type: BLOOD SPECIMEN Ordering Facility: [facility] Address: [address] [place] [address] Performed By: #### 2 4321-2 #### [facility] CLIA [id number] [address] OF [facility] Creatinine [Mass/Vol] 0.73 mg/dL Normal 0.73-1.22 [facility] Comment on above: Order Comment: Speci men Type: BLOOD SPECIMEN Ordering Facility: [facility] Address: [address] [place] [address] Performed By: #### 2 4321-2 #### [facility] CLIA [id number] [address] Creatinine and Glomerular filtration rate.predicted panel (S/P/Bld) 109 mL/min/1.73m??? Normal >=60 [facility] Comment on above: Order Comment: Speci men Type: BLOOD SPECIMEN Ordering Facility: [facility] Address: [address] [place] [address] Result Comment: Ingrid mated Glomerular Filtration Rate [...] 2 4321-2 #### [facility] CLIA [id number] [address] [place] [address] [place] Glucose [Mass/Vol] 98 mg/dL Normal 74-99 [facility] Comment on above: Order Comment: Meng blancas Type: BLOOD SPECIMEN Ordering Facility: [facility] Address: [address] [place] [address] Result Comment: The [place] Diabetes Association (ADA) provides guidance for cutoff [...] Standards of Medical Care in Diabetes 2016, [place] [employer]. Diabetes Care. 2016.39(Suppl 1). Performed By: #### 2 4321-2 #### [facility] CLIA [id number] [address] [place] [address] [place] Potassium [Moles/Vol] 4.5 mmol/L Normal 3.7-5.1 [facility] Comment on above: Order Comment: Meng blancas Type: BLOOD SPECIMEN Ordering Facility: [facility] Address: [address] [place] [address] Performed By: #### 2 4321-2 #### [facility] CLIA [id number] [address] [place] [address] [place] Sodium [Moles/Vol] 140 mmol/L Normal 136-144 [facility] Comment on above: Order Comment: Speci men Type: BLOOD SPECIMEN Ordering Facility: [facility] Address: [address] [place] [address] Performed By: #### 2 4321-2 #### [facility] CLIA [id number] [address] [place] [address] [place] Urea nitrogen [Mass/Vol] 21 mg/dL Normal 9-24 [facility] Comment on above: Order Comment: Speci men Type: BLOOD SPECIMEN Ordering Facility: [facility] Address: [address] [place] [address] Performed By: #### 2 4321-2 #### [facility] CLIA [id number] [address] STATES OF [facility] CBC panel Auto (Bld)on 12-30 Erythrocyte distribution width (RBC) [Ratio] 13.8 % Normal 11.5-15.0 [facility] Comment on above: Order Comment: Speci men Type: BLOOD SPECIMEN Ordering Facility: [facility] Address: [address] [place] [address] Performed By: #### 3 3762-6, 83963-3 #### [facility] CLIA [id number] [address] STATES OF [facility] Hematocrit (Bld) [Volume fraction] 42.8 % Normal 39.0-51.0 [facility] Comment on above: Order Comment: Speci men Type: BLOOD SPECIMEN Ordering Facility: [facility] Address: [address] [place] [address] Performed By: #### 3 3762-6, 99499-3 #### [facility] CLIA [id number] [address] STATES OF [facility] Hemoglobin (Bld) [Mass/Vol] 12.7 g/dL Low 13.0-17.0 [facility] Comment on above: Order Comment: Speci men Type: BLOOD SPECIMEN Ordering Facility: [facility] Address: [address] [place] [address] Performed By: #### 3 3762-6, 92906-3 #### [facility] CLIA [id number] [address] STATES OF [facility] MCH (RBC) [Entitic mass] 30.2 pg Normal 26.0-34.0 [facility] Comment on above: Order Comment: Speci men Type: BLOOD SPECIMEN Ordering Facility: [facility] Address: [address] [place] [address] Performed By: #### 3 3762-6, 13514-7 #### [facility] CLIA [id number] [address] [place] MCHC (RBC) [Mass/Vol] 29.7 g/dL Low 30.5-36.0 [facility] Comment on above: Order Comment: Speci men Type: BLOOD SPECIMEN Ordering Facility: [facility] Address: [address] [place] [address] Performed By: #### 3 3762-6, 28991-7 #### [facility] CLIA [id number] [address] MCV (RBC) [Entitic vol] 101.9 fL High 80.0-100.0 [facility] Comment on above: Order Comment: Speci men Type: BLOOD SPECIMEN Ordering Facility: [facility] Address: [address] [place] [address] Performed By: #### 3 3766, 02105-5 #### [facility] CLIA [id number] [address] Nucleated RBC (Bld) [#/Vol] 10*3/uL Normal <0.01 [facility] Comment on above: Order Comment: Speci men Type: BLOOD SPECIMEN Ordering Facility: [facility] Address: [address] [place] [address] Performed By: #### 3 3762-6, 48149-4 #### [facility] CLIA [id number] [address] Platelet mean volume (Bld) [Entitic vol] 9.7 fL Normal 9.0-12.7 [facility] Comment on above: Order Comment: Speci men Type: BLOOD SPECIMEN Ordering Facility: [facility] Address: [address] [place] [address] Performed By: #### 3 3762-6, 41466-1 #### [facility] CLIA [id number] [address] [place] Platelets (Bld) [#/Vol] 306 10*3/uL Normal 150-400 [facility] Comment on above: Order Comment: Speci men Type: BLOOD SPECIMEN Ordering Facility: [facility] Address: [address] [place] [address] Performed By: #### 3 3762-6, 22200-6 #### [facility] CLIA [id number] [address] OF [facility] RBC (Bld) [#/Vol] 4.20 10*6/uL Normal 4.20-6.00 [facility] Comment on above: Order Comment: Speci men Type: BLOOD SPECIMEN Ordering Facility: [facility] Address: [address] [place] [address] Performed By: #### 3 3762-6, 01779-5 #### [facility] CLIA [id number] [address] WBC (Bld) [#/Vol] 12.01 10*3/uL High 3.70-11.00 [facility] Comment on above: Order Comment: Speci men Type: BLOOD SPECIMEN Ordering Facility: [facility] Address: [address] [place] [address] Performed By: #### 3 3762-6, 40555-0 #### [facility] CLIA [id number] [address] CONSULT PROGon 12-29-2023 CONSULT PROG HNO ID: [id number] Author: AKSIA ABARCA PA-C Service: Pulmonary Disease Author Type: Physician Roller Inspector And Mender Type: Consult Progress Note Filed: 12/29/2023 10:42 Note Text: [facility] PULMONARY MEDICINE CONSULT PROGRESS NOTE [...] ORAL q 6 H PRN Raven Lara APRN.POP SINGER 30 mL at 12/29/23 0209 ipratropium-albuterol 3 [...] 0.3 12/27/2023 Abs Neut 7.09 12/27/2023 Abs Centre 0.70 12/27/2023 Abs Eosin 0.10 12/27/2023 Abs [...] superficial thrombophleb (more content not included)... Normal [facility] THERAPY NTon 12-29-2023 THERAPY NT HNO ID: [id number] Author: MAUREEN, MILADY, OTR/L Service: Occupational Therapy Author Type: Occupational Therapist Type: Therapy (PT/OT/Speech/Resp) Filed: 12/29/2023 09:19 Note Text: Occupational Therapy Evaluation Summary SERVICE DATE: 12/29/2023 SERVICE TIME: 836 to 856 ROOM: [id number] OT 6 Clicks Score: 20 DISCHARGE RECOMMENDATIONS [...] breath. Son works during the day but yglqlgel-bl-xxn at home, however patient reports being too [...] Time (minutes): 20 $ Evaluation - Moderate (74772) Billed Units: 1 unit TRAINING AND EDUCATION PROVIDED Adaptive Equipment/DME, Bed Mobility, Benefits of In-Hospital Mobility, Energy Conservation, Functional Mobility Involving ADLs, Grooming Tasks, Role of Occupational Therapy, Positioning, Precautions/Restrictio ns, Sitting Balance to Improve [place] with ADLs/Self-Care THERAPEUTIC SKILLS USED Activity Dosing, [...] Training, Balance Training, Energy Conservation Training SIGNATURE: STEFAN Ramos/Earl PATIENT NAME: Javier Dickson DATE: December 29, 2023 TIME: 9:07 AM [facility] 36on 12-28-2023 36 Patients last visit 07/19/22. Please advise. [facility] [employer] [facility] 36 Name of caller: Robert hurd from [facility] Contact phone number: [phone] opt #5 Relationship to Patient: Lucy from [facility] care Provider: Dr. Batista Practice: [facility] Chief Complaint/Reason for Call: Lucy from [facility] calling to see if Dr. Batista will follow the patient for home care. Please advise. Best time of day caller can be reached: any Patient advised that office/PCP has 24-48 business hours to return their call: No Normal [facility] [employer] [facility] Basic metabolic 2000 panelon 12-28-2023 Anion gap [Moles/Vol] 6 mmol/L Low 9-18 [facility] Comment on above: Order Comment: Speci men Type: BLOOD SPECIMENOrdering Facility: [facility] Address: [address] [place] [address] Performed By: #### 2 4321-2 ####[facility]ORY[facility]IA [id number] [place] [address] [place] Calcium [Mass/Vol] 8.4 mg/dL Low 8.5-10.2 [facility] Comment on above: Order Comment: Speci men Type: BLOOD SPECIMENOrdering Facility: [facility] Address: [address] [place] [address] Performed By: #### 2 4321-2 ####[facility] [id number] [place] [address] [place] Chloride [Moles/Vol] 96 mmol/L Low 97-105 [facility] Comment on above: Order Comment: Speci men Type: BLOOD SPECIMENOrdering Facility: [facility] Address: [address] [place] [address] Performed By: #### 2 1-2 ####[facility] [id number] [place] [address] [place] CO2 [Moles/Vol] 37 mmol/L High 22-30 [facility] Comment on above: Order Comment: Speci men Type: BLOOD SPECIMENOrdering Facility: [facility] Address: [address] [place] [address] Performed By: #### 2 4321-2 ####[facility] [id number] [place] [address] [place] Creatinine [Mass/Vol] 0.73 mg/dL Normal 0.73-1.22 [facility] Comment on above: Order Comment: Meng blancas Type: BLOOD SPECIMENOrdering Facility: [facility] Address: [address] [place] [address] Performed By: #### 2 4321-2 ####[facility] [id number] [place] [id number] [place] Creatinine and Glomerular filtration rate.predicted panel (S/P/Bld) 109 mL/min/1.73m??? Normal >=60 [facility] Comment on above: Order Comment: Meng blancas Type: BLOOD SPECIMENOrdering Facility: [facility] Address: [address] [place] [address] Result Comment: Ingrid mated Glomerular Filtration Rate [...] actual GFR. Performed By: #### 2 4321-2 ####[facility] [id number] [place] [address] [place] Glucose [Mass/Vol] 108 mg/dL High 74-99 [facility] Comment on above: Order Comment: Meng blancas Type: BLOOD SPECIMENOrdering Facility: [facility] Address: [address] [place] [address] Result Comment: The [place] Diabetes Association (ADA) provides guidance for cutoff [...] Standards of Medical Care in Diabetes 2016, [place] [employer]. Diabetes Care. 2016.39(Suppl 1). Performed By: #### 2 4321-2 ####[facility] [id number] [address] [place] Potassium [Moles/Vol] 4.6 mmol/L Normal 3.7-5.1 [facility] Comment on above: Order Comment: Speci men Type: BLOOD SPECIMENOrdering Facility: [facility] Address: [address] [place] [address] Performed By: #### 2 4321-2 ####[facility] [id number] [address] [place] Sodium [Moles/Vol] 139 mmol/L Normal 136-144 [facility] Comment on above: Order Comment: Speci men Type: BLOOD SPECIMENOrdering Facility: [facility] Address: [address] [place] [address] Performed By: #### 2 4321-2 ####[facility]ORY[facility] [id number] [address] STATES [facility] Urea nitrogen [Mass/Vol] 22 mg/dL Normal 9-24 [facility] Comment on above: Order Comment: Speci men Type: BLOOD SPECIMENOrdering Facility: [facility] Address: [address] [place] [address] Performed By: #### 2 4321-2 ####[facility]ORYCLIA [id number] [address] STATES OF [facility] CBC panel Auto (Bld)on 12-28 Erythrocyte distribution width (RBC) [Ratio] 13.6 % Normal 11.5-15.0 [facility] Comment on above: Order Comment: Speci men Type: BLOOD SPECIMEN [facility] Address: [address] [place] [address] Performed By: #### L [id number] #### [facility] CLIA [id number] [address] STATES [place] Hematocrit (Bld) [Volume fraction] 41.4 % Normal 39.0-51.0 [facility] Comment on above: Order Comment: Speci men Type: BLOOD SPECIMEN [facility] Address: [address] [place] [address] Performed By: #### L [id number] #### [facility] CLIA [id number] [address] Hemoglobin (Bld) [Mass/Vol] 12.4 g/dL Low 13.0-17.0 [facility] Comment on above: Order Comment: Speci men Type: BLOOD SPECIMEN [facility] Address: [address] [place] [address] Performed By: #### L [id number] #### [facility] CLIA [id number] [address] MCH (RBC) [Entitic mass] 30.5 pg Normal 26.0-34.0 [facility] Comment on above: Order Comment: Speci men Type: BLOOD SPECIMEN [facility] Address: [address] [place] [address] Performed By: #### L [id number] #### [facility] CLIA [id number] [address] MCHC (RBC) [Mass/Vol] 30.0 g/dL Low 30.5-36.0 [facility] Comment on above: Order Comment: Speci men Type: BLOOD SPECIMEN [facility] Address: [address] [place] [address] Performed By: #### L [id number] #### [facility] CLIA [id number] [address] MCV (RBC) [Entitic vol] 101.7 fL High 80.0-100.0 [facility] Comment on above: Order Comment: Speci men Type: BLOOD SPECIMEN [facility] Address: [address] [place] [address] Performed By: #### L [id number] #### [facility] CLIA [id number] [address] [place] [address] [place] Nucleated RBC (Bld) [#/Vol] 10*3/uL Normal <0.01 [facility] Comment on above: Order Comment: Speci men Type: BLOOD SPECIMEN [facility] Address: [address] [place] [address] Performed By: #### L [id number] #### [facility] CLIA [id number] [address] OF [place] Platelet mean volume (Bld) [Entitic vol] 9.7 fL Normal 9.0-12.7 [facility] Comment on above: Order Comment: Speci men Type: BLOOD SPECIMEN [facility] Address: [address] [place] [address] Performed By: #### L [id number] #### [facility] CLIA [id number] [address] Platelets (Bld) [#/Vol] 291 10*3/uL Normal 150-400 [facility] Comment on above: Order Comment: Speci men Type: BLOOD SPECIMEN [facility] Address: [address] [place] [address] Performed By: #### L [id number] #### [facility] CLIA [id number] [address] RBC (Bld) [#/Vol] 4.07 10*6/uL Low 4.20-6.00 [facility] Comment on above: Order Comment: Speci men Type: BLOOD SPECIMEN [facility] Address: [address] [place] [address] Performed By: #### L [id number] #### [facility] CLIA [id number] [address] OF [place] WBC (Bld) [#/Vol] 13.26 10*3/uL High 3.70-11.00 [facility] Comment on above: Order Comment: Speci men Type: BLOOD SPECIMEN [facility] Address: [address] [place] [address] Performed By: #### L [id number] #### [facility] CLIA [id number] 1 [place] [id number] [facility] OF [facility] Felice 12-28-2023 CNPN Telephone (HCSIND) JAVIER DICKSON ([id number]) 1970 M Date Time Provider Department 12/28/23 [...] Status:Closed by MAYKEL JIMENEZ on 12/28/23 Normal [facility] CONSULT PROGon 12-28-2023 CONSULT PROG HNO ID: [id number] Author: KASIA ABARCA PA-C Service: Pulmonary Disease Author Type: Physician Roller Inspector And Mender Type: Consult Progress Note Filed: 12/28/2023 10:33 Note Text: [facility] PULMONARY MEDICINE ICU FOLLOW-UP NOTE [...] at home. Does not follow with a agile coach. Admits to shortness of breath and a [...] 0.3 12/27/2023 Abs Neut 7.09 12/27/2023 Abs Centre 0.70 12/27/2023 Abs Eosin 0.10 12/27/2023 Abs [...] pulmonary interstit (more content not included)... Normal [facility] NURSING PROGon 12-28-2023 NURSING PROG HNO ID: [id number] Author: ELODIA TRIPATHI, RN Service: ? Author Type: Registered Nurse Type: Nursing Progress Note Filed: 12/28/2023 15:04 Note Text: Admission/Transfer Note PATIENT NAME: Javier Dickson Patient Location: [place] [address] [address] Room: [place] [address] Patient transferred to [facility] via wheelchair in stable condition. Actions taken: Report given/called to [facility]. Patient belongings with patient. This note was completed by: Elodia Tripathi Normal [facility] THERAPY NTon 12-28-2023 THERAPY NT HNO ID: [id number] Author: YOEL ALFARO PT Service: Physical Therapy Author Type: Physical Therapist Type: Therapy (PT/OT/Speech/Resp) Filed: 12/28/2023 11:34 Note Text: Physical Therapy Evaluation Summary SERVICE DATE: 12/28/2023 SERVICE TIME: 3750 to 1007 ROOM: [place] [address] PT 6 Clicks Score: 19 DISCHARGE RECOMMENDATIONS [...] breath. Son works during the day but [id number] at home, however patient reports being too stubborn to ask for assistance SUBJECTIVE Patient agreeable to PT session THERAPY DIAGNOSIS Muscle Weakness (generalized), Unsteadiness on feet, General symptoms and signs-other TREATMENT INTERVENTIONS Evaluation, Therapeutic Activity (23879) $ Evaluation-Moderate (55070) Billed Units: 1 unit Therapeutic Activity (38240) Treatment Minutes: 8 $ Therapeutic Activity (95180) Billed Units: 1 unit Educated patient on [...] Gait Training, (more content not included)... Normal [facility] ALLIED HEALTHon 12-27-2023 ALLIED HEALTH HNO ID: [id number] Author: SERA PEDRO RT(R) Service: Radiology Author [...] PATIENT PRESENTS WITH AN IMPLANTABLE OR ATTACHED PLANNING ENGINEER: No ALLERGIES: Reviewed and unchanged CONTRAST ALLERGY: [...] December 27, 2023 TIME: 5:58 AM Normal [facility] Bacteria Bld Culton 12-27-19 24 Bacteria identified Cx Nom (Bld) CULTURE, BLOOD: No growth 5 days Normal [facility] Comment on above: Performed By: #### L [id number] #### [facility] CLIA [id number] [address] [place] [address] [place] Basic metabolic 2000 panelon 12-27-2023 Anion gap [Moles/Vol] 5 mmol/L Low 9-18 [facility] Comment on above: Order Comment: Speci men Type: BLOOD SPECIMEN [facility] Address: [address] [place] [address] Performed By: #### 3 3762-6, 11394-7 #### [facility] CLIA [id number] 1 [place] [address] [place] Calcium [Mass/Vol] 8.8 mg/dL Normal 8.5-10.2 [facility] Comment on above: Order Comment: Speci men Type: BLOOD SPECIMEN [facility] Address: [address] [place] [address] Performed By: #### 3 3762-6, 64555-2 #### [place] [facility] CLIA [id number] [address] STATES [place] Chloride [Moles/Vol] 100 mmol/L Normal 97-105 [facility] Comment on above: Order Comment: Speci men Type: BLOOD SPECIMEN [facility] Address: [address] [place] [address] Performed By: #### 3 3762-6, 53761-8 #### [facility] CLIA [id number] [address] STATES [place] CO2 [Moles/Vol] 37 mmol/L High 22-30 [facility] Comment on above: Order Comment: Speci men Type: BLOOD SPECIMEN [facility] Address: [address] [place] [address] Performed By: #### 3 3762-6, 78722-0 #### [facility] CLIA [id number] [address] [place] Creatinine [Mass/Vol] 0.74 mg/dL Normal 0.73-1.22 [facility] Comment on above: Order Comment: Speci men Type: BLOOD SPECIMEN [facility] Address: [address] [place] [address] Performed By: #### 3 3762-6, 15063-8 #### [facility] CLIA [id number] [address] Creatinine and Glomerular filtration rate.predicted panel (S/P/Bld) 109 mL/min/1.73m??? Normal >=60 [facility] Comment on above: Order Comment: Speci men Type: BLOOD SPECIMEN [facility] Address: [address] [place] [address] Result Comment: Ingrid mated Glomerular Filtration Rate [...] actual GFR. Performed By: #### 3 3762-6, 14207-2 #### [facility] CLIA [id number] 1 [place] [address] [place] Glucose [Mass/Vol] 94 mg/dL Normal 74-99 [facility] Comment on above: Order Comment: Meng blancas Type: BLOOD SPECIMEN [facility] Address: [address] [place] [address] Result Comment: The [place] Diabetes Association (ADA) provides guidance for cutoff [...] Standards of Medical Care in Diabetes 2016, [place] [employer]. Diabetes Care. 2016.39(Suppl 1). Performed By: #### 3 3762-6, 98358-2 #### [facility] CLIA [id number] 1 [place] [address] [place] Potassium [Moles/Vol] 4.4 mmol/L Normal 3.7-5.1 [facility] Comment on above: Order Comment: Meng blancas Type: BLOOD SPECIMEN [facility] Address: [address] [place] [address] Performed By: #### 3 3762-6, 03557-4 #### [place] [facility] CLIA [id number] 1 [place] [address] [place] Sodium [Moles/Vol] 142 mmol/L Normal 136-144 [facility] Comment on above: Order Comment: Speci men Type: BLOOD SPECIMEN [facility] Address: [address] [place] [address] Performed By: #### 3 3762-6, 82093-4 #### [facility] CLIA [id number] [address] STATES OF [facility] Urea nitrogen [Mass/Vol] 14 mg/dL Normal 9-24 [facility] Comment on above: Order Comment: Speci men Type: BLOOD SPECIMEN [facility] Address: [address] [place] [address] Performed By: #### 3 3762-6, 58017-1 #### [facility] CLIA [id number] [address] OF [facility] CBC W Auto Differential pane l (Bld)on 12-27-2023 Basophils (Bld) [#/Vol] 0.03 10*3/uL Normal <0.11 [facility] Comment on above: Order Comment: Speci men Type: BLOOD SPECIMEN [facility] Address: [address] [place] [address] Performed By: #### 3 3762-6, 74975-9 #### [facility] CLIA [id number] [address] OF [facility] Basophils/100 WBC (Bld) 0.3 % Normal [facility] Comment on above: Order Comment: Speci men Type: BLOOD SPECIMEN [facility] Address: [address] [place] [address] Performed By: #### 3 3762-6, 29912-3 #### [place] [facility] CLIA [id number] [address] Differential cell count method Nom (Bld) Auto Normal [facility] Comment on above: Order Comment: Speci men Type: BLOOD SPECIMEN [facility] Address: [address] [place] [address] Performed By: #### 3 3762-6, 71968-9 #### [place] [facility] CLIA [id number] [address] [place] Eosinophils (Bld) [#/Vol] 0.10 10*3/uL Normal <0.46 [facility] Comment on above: Order Comment: Speci men Type: BLOOD SPECIMEN [facility] Address: [address] [place] [address] Performed By: #### 3 6, 85752-8 #### [place] [facility] CLIA [id number] [address] OF [place] Eosinophils/100 WBC (Bld) 1.2 % Normal [facility] Comment on above: Order Comment: Speci men Type: BLOOD SPECIMEN [facility] Address: [address] [place] [address] Performed By: #### 3 3766, 47764-3 #### [facility] CLIA [id number] [address] Erythrocyte distribution width (RBC) [Ratio] 13.8 % Normal 11.5-15.0 [facility] Comment on above: Order Comment: Speci men Type: BLOOD SPECIMEN [facility] Address: [address] [place] [address] Performed By: #### 3 37612-19, 30333-4 #### [place] [facility] CLIA [id number] [address] OF [place] Hematocrit (Bld) [Volume fraction] 45.9 % Normal 39.0-51.0 [facility] Comment on above: Order Comment: Speci men Type: BLOOD SPECIMEN [facility] Address: [address] [place] [address] Performed By: #### 3 376-6, 34337-7 #### [place] [facility] CLIA [id number] [address] OF [place] Hemoglobin (Bld) [Mass/Vol] 13.7 g/dL Normal 13.0-17.0 [facility] Comment on above: Order Comment: Speci men Type: BLOOD SPECIMEN [facility] Address: [address] [place] [address] Performed By: #### 3 3762-6, 54035-1 #### [place] [facility] CLIA [id number] [address] OF [place] Immature granulocytes (Bld) [#/Vol] 0.03 10*3/uL Normal <0.10 [facility] Comment on above: Order Comment: Speci men Type: BLOOD SPECIMEN [facility] Address: [address] [place] [address] Performed By: #### 3 376-6, 40882-3 #### [place] [facility] CLIA [id number] [address] OF [place] Immature granulocytes/100 WBC (Bld) 0.3 % Normal [facility] Comment on above: Order Comment: Speci men Type: BLOOD SPECIMEN [facility] Address: [address] [place] [address] Performed By: #### 3 376-6, 49605-6 #### [place] [facility] CLIA [id number] [address] [place] Lymphocytes (Bld) [#/Vol] 0.65 10*3/uL Low 1.00-4.00 [facility] Comment on above: Order Comment: Speci men Type: BLOOD SPECIMEN [facility] Address: [address] [place] [address] Performed By: #### 3 376-6, 49847-7 #### [place] [facility] CLIA [id number] [address] [place] Lymphocytes/100 WBC (Bld) 7.6 % Normal [facility] Comment on above: Order Comment: Speci men Type: BLOOD SPECIMEN [facility] Address: [address] [place] [address] Performed By: #### 3 3762-6, 83143-6 #### [place] [facility] CLIA [id number] [address] MCH (RBC) [Entitic mass] 30.3 pg Normal 26.0-34.0 [facility] Comment on above: Order Comment: Speci men Type: BLOOD SPECIMEN [facility] Address: [address] [place] [address] Performed By: #### 3 3762-6, 30322-1 #### [facility] CLIA [id number] [address] OF [facility] MCHC (RBC) [Mass/Vol] 29.8 g/dL Low 30.5-36.0 [facility] Comment on above: Order Comment: Speci men Type: BLOOD SPECIMEN [facility] Address: [address] [place] [address] Performed By: #### 3 3762-6, 54953-8 #### [facility] CLIA [id number] [address] MCV (RBC) [Entitic vol] 101.5 fL High 80.0-100.0 [facility] Comment on above: Order Comment: Speci men Type: BLOOD SPECIMEN [facility] Address: [address] [place] [address] Performed By: #### 3 3762-6, 23682-2 #### [facility] CLIA [id number] [address] Monocytes (Bld) [#/Vol] 0.70 10*3/uL Normal <0.87 [facility] Comment on above: Order Comment: Speci men Type: BLOOD SPECIMEN [facility] Address: [address] [place] [address] Performed By: #### 3 3762-6, 17827-8 #### [facility] CLIA [id number] [address] Monocytes/100 WBC (Bld) 8.1 % Normal [facility] Comment on above: Order Comment: Speci men Type: BLOOD SPECIMEN [facility] Address: [address] [place] [address] Performed By: #### 3 3762-6, 87915-2 #### [facility] [facility] CLIA [id number] [address] [place] Neutrophils (Bld) [#/Vol] 7.09 10*3/uL Normal 1.45-7.50 [facility] Comment on above: Order Comment: Speci men Type: BLOOD SPECIMEN [facility] Address: [address] [place] [address] Performed By: #### 3 376-6, 92927-0 #### [facility] [facility] CLIA [id number] [address] [place] Neutrophils/100 WBC (Bld) 82.5 % Normal [facility] Comment on above: Order Comment: Speci men Type: BLOOD SPECIMEN [facility] Address: [address] [place] [address] Performed By: #### 3 3766, 47551-4 #### [facility] CLIA [id number] [address] [place] Nucleated RBC (Bld) [#/Vol] 10*3/uL Normal <0.01 [facility] Comment on above: Order Comment: Speci men Type: BLOOD SPECIMEN [facility] Address: [address] [place] [address] Performed By: #### 3 376-6, 14670-0 #### [place] [facility] CLIA [id number] [address] [place] Nucleated RBC/100 WBC (Bld) [Ratio] 0.0 /100 WBC Normal [facility] Comment on above: Order Comment: Speci men Type: BLOOD SPECIMEN [facility] Address: [address] [place] [address] Performed By: #### 3 3762-6, 96061-5 #### [place] [facility] CLIA [id number] [address] [place] [address] [place] Platelet mean volume (Bld) [Entitic vol] 10.1 fL Normal 9.0-12.7 [facility] Comment on above: Order Comment: Speci men Type: BLOOD SPECIMEN [facility] Address: [address] [place] [address] Performed By: #### 3 3762-6, 05060-5 #### [place] [facility] CLIA [id number] 1 [place] [address] [place] Platelets (Bld) [#/Vol] 328 10*3/uL Normal 150-400 [facility] Comment on above: Order Comment: Speci men Type: BLOOD SPECIMEN [facility] Address: [address] [place] [address] Performed By: #### 3 3762-6, 17751-7 #### [facility] CLIA [id number] [address] [place] RBC (Bld) [#/Vol] 4.52 10*6/uL Normal 4.20-6.00 [facility] Comment on above: Order Comment: Speci men Type: BLOOD SPECIMEN [facility] Address: [address] [place] [address] Performed By: #### 3 3762-6, 82115-2 #### [facility] CLIA [id number] [address] [place] WBC (Bld) [#/Vol] 8.60 10*3/uL Normal 3.70-11.00 [facility] Comment on above: Order Comment: Speci men Type: BLOOD SPECIMEN [facility] Address: [address] [place] [address] Performed By: #### 3 3762-6, 37781-0 #### [facility] CLIA [id number] [address] CONSULT PROGon 12-27-2023 CONSULT PROG HNO ID: [id number] Author: AYLEEN DENNEY RPh Service: Pharmacy Author [...] there are questions. Ayleen Denney [facility] Normal [facility] CONSULT PROG HNO ID: [id number] Author: SATHISH SHETH [facility] Service: Pharmacy Author Type: Pharmacist [...] have any questions[place] [phone]. Age: [age] year old Allergies: ALLERGIES No [...] results found for: GISELLA Sheth [facility] Normal [facility] CRP SerPl-mCncon 12-27-2023 CRP [Mass/Vol] 0.5 mg/dL Normal <0.9 [facility] Comment on above: Order Comment: Speci men Type: BLOOD SPECIMENOrdering Facility: [facility] Address: [address] [place] [address] Performed By: #### 1 988-5 ####[facility] [id number] [place] [address] [place] CT CHEST W IVCONon CT CHEST W IVCON * * *Final Report* * * DATE OF EXAM: Dec 27 2023 6:15AM [facility] 0539 - CT CHEST W IVCON [...] No abnormality in the imaged upper abdomen. Collar Tacker (topogram) images: Unremarkable. IMPRESSION: Severe emphysema. 9.4 cm bulla at the left apex. Small right pleural effusion with subjacent compressive atelectasis. Diesel Scoop Operator: PSCB Transcribe Date/Time: Dec 27 2023 6:20A Dictated by : MARY PRASAD MD This examination was interpreted and the report reviewed and electronically signed by: MARY PRASAD MD on Dec 27 2023 6:25AM EST [id number] Normal [facility] ECG COMPLETEon 12-27-2023 ECG COMPLETE Ventricular Rate : 1 00 BPM Atrial Rate : 100 BPM P-R Interval : 132 ms QRS Duration : 80 ms Q-T Interval : 332 ms QTC Calculation(Bazett) : 428 ms Calculated P [place] : 83 degrees Calculated R [place] : -100 degrees Calculated T [place] : 63 degrees NORMAL SINUS RHYTHM RIGHT SUPERIOR AXIS DEVIATION PULMONARY DISEASE PATTERN ABNORMAL ECG WHEN COMPARED WITH ECG OF 13-NOV-2023 05:11, FUSION COMPLEXES ARE NO LONGER PRESENT Confirmed by MD SINGH ERICK ([id number]) on 01/01/2024 3:00:05 AM NAME : JAVIER DICKSON PID : [id number] : 1970 Gender : Male Race : ORD : [id number] Procedure Date : Dec 27 2023 02:58:15 Edit Date : Jan 01 2024 03:00:06 Diagnosis: NORMAL SINUS RHYTHM RIGHT SUPERIOR AXIS DEVIATION PULMONARY DISEASE PATTERN ABNORMAL ECG WHEN COMPARED WITH ECG OF 13-NOV-2023 05:11, FUSION COMPLEXES ARE NO LONGER PRESENT Confirmed by MD SINGH ERICK ([id number]) on 01/01/2024 3:00:05 AM Test Reason : Chest Pain Location : 4 : [facility] EM Overread By : MD SINGH ERICK Edited By : MD SINGH ERICK Referred By : , Acquired by : AZUL BRADEN Normal [facility] ED NOTEon 12-27-2023 ED NOTE HNO ID: [id number] Author: AZUL BRADEN RN Service: ? Author Type: Registered Nurse Type: ED Notes Filed: 12/27/2023 05:49 Note Text: Report given to MICU RN. CT notified [facility] ED NOTE HNO ID: [id number] Author: AZUL BRADEN RN Service: ? Author [...] a safe and comfortable position on the child monitor with call light within reach and continuous pulse oximetry. [facility] ED NOTE HNO ID: [id number] Author: AZUL BRADEN RN Service: ? Author [...] [facility] ED NOTE HNO ID: [id number] Author: AZUL BRADEN RN Service: ? Author [...] they put the apparatus back on. Normal [facility] ED NOTE HNO ID: [id number] Author: AZUL BRADEN RN Service: ? Author Type: Registered Nurse Type: ED Notes Filed: 12/27/2023 02:52 Note Text: US notified Normal [facility] ED NOTE HNO ID: [id number] Author: AZUL BRADEN RN Service: ? Author Type: Registered Nurse Type: ED Notes Filed: 12/27/2023 03:18 Note Text: Pt placed on BiPAP by respiratory. Normal [facility] ED NOTE HNO ID: [id number] Author: HOWARD FARFAN DO Service: Emergency Medicine [...] [facility] [facility] ED [facility] HNO ID: [id number] Author: AZUL BRADEN RN Service: ? Author Type: Registered Nurse Type: ED Notes Filed: 12/27/2023 01:57 Note Text: Pt placed on 6L NC from the 2L NC. Pt endorses increased ease of breathing. Pt left in a safe and comfortable position on cardiac monitoring and continuous pule oximetry. Respiratory Therapy at the bedside giving a breathing treatment. [facility] ED NOTE HNO ID: [id number] Author: NENITA HUGHES RN Service: ? Author Type: Registered Nurse Type: ED Notes Filed: 12/27/2023 01:46 Note Text: Bed: 15-ED Expected date: Expected time: Means of arrival: Comments: MED 10 [facility] ED PROV NOTEon 12-27-2023 ED PROV NOTE HNO ID: [id number] Author: HOWARD FARFAN DO Service: Emergency Medicine [...] past few weeks. EMS gave 1 Duone[facility] [place]. Pt sts "I always have SOB but [...] tenderness, deformity (more content not included)... Normal [facility] FLUABV+SARS-CoV-2+RSV Pnl Re sp EH+probeon 12-27-2023 FLUABV+SARS-CoV-2+RSV Pnl Resp EH+probe COVID 19 RESULT: Not detected The method used is RT-PCR or an equivalent NAAT method. Reference Range(the expected result in uninfected individuals): Not detected INFLUENZA A PCR: Not detected INFLUENZA B PCR: Not detected RSV PCR: Not detected Normal [facility] Comment on above: Performed By: #### L [id number] #### [facility] CLIA [id number] [address] [place] [address] [place] HIGH SENSITIVITY TROPONIN T (INITIAL)on 12-27-2023 Troponin T.cardiac High sensitivity method [Mass/Vol] 64 ng/L High <12 [facility] Comment on above: Order Comment: Specnaren blancas Type: BLOOD SPECIMEN Ordering Facility: [facility] Address: [address] [place] [address] Result Comment: When assessing risk for acute [...] 30 day MACE. Performed By: #### L [id number] #### [facility] CLIA [id number] [address] [place] [address] [place] HIGH SENSITIVITY TROPONIN T (SECOND)on 12-27-2023 Troponin T.cardiac High sensitivity method [Mass/Vol] 58 ng/L High <12 [facility] Comment on above: Order Comment: Speci yonny Type: BLOOD SPECIMEN Ordering Facility: [facility] Address: [address] [place] [address] Result Comment: When assessing risk for acute [...] 30 day MACE. Performed By: #### L [id number] #### [facility] CLIA [id number] [address] HIGH SENSITIVITY TROPONIN T (THIRD) 3 HRS AFTER INITIALon 12-27-2023 Troponin T.cardiac High sensitivity method [Mass/Vol] 55 ng/L High <12 [facility] Comment on above: Order Comment: Speci men Type: BLOOD SPECIMEN [facility]ing Facility: [facility] Address: [address] [place] [address] Result Comment: When assessing risk for acute [...] day MACE. Performed By: #### 3 3762-6, 41655-5 #### [facility] CLIA [id number] [address] [place] [address] OF [facility] HISTORY PHYSICALon HISTORY PHYSICAL HNO ID: [id number] Author: NAYE GONZALEZ MD Service: Critical Care [...] heart failure with preserved EF -Type 2 AL, no chest pain -polysubstance abuse [facility] [...] organ s (more content not included)... Normal [facility] HISTORY PHYSICAL HNO ID: [id number] Author: NAYE GONZALEZ MD Service: Critical Care Author Type: Physician Type: H&P Filed: 12/27/2023 06:40 Note Text: [facility] [place] [place] HANDP PATIENT NAME: Javier Dickson ADMITTED FOR: Acute on chronic hypercapnic hypoxic respiratory failure DATE: 12/27/2023 Subjective HPI Mr. Javier Dickson is a 53 year old male with PMH of: -COPD no oxygen baseline Patient presented to [facility] with a chief complaint of SOB, [...] male with PMH of COPD presents to [facility] ED for SOB and cough. MICU [...] and Airways Line Duration Peripheral 12/27/23 0151 [facility] Short Left Forearm 18 Gauge <1 day SIGNATURE: Evelyn Orozco MD PATIENT NAME: Javier Dickson DATE: December 27, 2023 TIME: 3:36 AM PAGER#: Attending Note I evaluated the patient and personally participated in the carlos components. I agree with the re (more content not included)... Normal [facility] Legionella Ag Ur Qlon 2023 Legionella sp Ag Ql (U) Negative Normal Negative A [facility] Comment on above: Order Comment: Speci yonny Type: BLOOD SPECIMEN [facility]ing Facility: [facility] Address: [address] [place] [address] Result Comment: Pres umptive negative for L. [...] of the test. Performed By: #### L [id number] #### [facility] CLIA [id number] [address] [place] [address] [place] Magnesium SerPl-mCncon 12-27 Magnesium [Mass/Vol] 1.9 mg/dL Normal 1.7-2.3 [facility] Comment on above: Order Comment: Speci men Type: BLOOD SPECIMENOrdering Facility: [facility] Address: [address] [place] [address] Performed By: #### 1 9123-9, 22837-1, 2777-1 ####[facility] [id number] [address] NT-proBNP [facility] 12-27 Natriuretic peptide.B prohormone N-Terminal [Mass/Vol] 3703 pg/mL High <125 [facility] Comment on above: Order Comment: Speci men Type: BLOOD SPECIMEN Ordering Facility: [facility] Address: [address] [place] [address] Performed By: #### 3 3762-6, 01351-3 #### [facility] CLIA [id number] [address] NUTRITIONon 12-27-2023 NUTRITION HNO ID: [id number] Author: SCOTTY SIMON RD Service: Nutrition Therapy [...] Care Plan: Continue current diet Supplements: Boost [facility] Monitor and Evaluation: Meet greater than [...] December 27, 2023 TIME: 7:56 AM Normal [facility] Phosphate SerPl-mCncon 12-27 Phosphate [Mass/Vol] 3.4 mg/dL Normal 2.7-4.8 [facility] Comment on above: Order Comment: Speci men Type: BLOOD SPECIMENOrdering Facility: [facility] Address: [address] [place] [address] Performed By: #### 1 9123-9, 07363-1, 2777-1 ####[facility]IA [id number] [place] [address] [place] Procalcitonin SerPl-mCncon 0 12-27-2023 Procalcitonin [Mass/Vol] 0.07 ng/mL Normal <0.09 [facility] Comment on above: Order Comment: Speci men Type: BLOOD SPECIMENOrdering Facility: [facility] Address: [address] [place] [address] Result Comment: For a guided interpretation of test results, please visit the Change in Procalcitonin Calculator, [email or web address]. Performed By: #### 1 9123-9, 77877-6, 2777-1 ####[facility]IA [id number] [place] [address] [place] STAPH AUREUS PCRon 4 S. aureus and MRSA panel EH+probe (Nose) Abnormal Negative [facility] Comment on above: Order Comment: Speci men Type: BLOOD SPECIMEN Ordering Facility: [facility] Address: [address] [place] [address] Result Comment: Posi tive for Staphylococcus aureus by PCR. Positive for MRSA by PCR Performed By: #### 3 3762-6, 61636-4 #### [facility] CLIA [id number] [address] [place] STREPTOCOCCUS PNEUMONIAE AGo n 12-27-2023 STREPTOCOCCUS PNEUMONIAE AG STREP PNEUMO AG RESULT: Negative for Streptococcus pneumoniae antigen. Presumptive negative for pneumococcal pneumonia, suggesting no current or recent pneumococcal infection. Infection due to S.pneumoniae cannot be ruled out since the antigen present in the sample may be below the detection limit of the test. Normal [facility] Comment on above: Performed By: #### S PNAG ####[facility]IA [id number] [place] [address] [place] US DVT LOWER LTon 12-27-2023 US DVT LOWER LT * * *Final Report* * * DATE OF EXAM: Dec 27 2023 3:11AM [place] [address] - DVT LOWER LT / PROCEDURE REASON: [...] imaged segments of the left lower extremity. Diesel Scoop Operator: PSCB Transcribe Date/Time: Dec 27 2023 3:19A Dictated by : MARY PRASAD MD This examination was interpreted and the report reviewed and electronically signed by: MARY PRASAD MD on Dec 27 2023 3:23AM EST [id number] Normal [facility] Urinalysis complete panel (U )on 12-27-2023 Bilirubin Ql (U) Negative Normal Negative [facility] Comment on above: Order Comment: Speci men Type: BLOOD SPECIMEN Ordering Facility: [facility] Address: [address] [place] [address] Performed By: #### 3 3762-6, 68928-7 #### [facility] CLIA [id number] [address] [place] Clarity (Unsp spec) Clear Normal Clear [facility] Comment on above: Order Comment: Speci men Type: BLOOD SPECIMEN Ordering Facility[facility] Address: [address] [place] [address] Performed By: #### 3 3762-6, 06569-2 #### [facility] CLIA [id number] [address] [place] Color (U) Colorless Normal yellow [facility] Comment on above: Order Comment: Speci men Type: BLOOD SPECIMEN Ordering Facility: [facility] Address: [address] [place] [address] Performed By: #### 3 3762-6, 39917-6 #### [facility] CLIA [id number] [address] [place] Glucose Test strip (U) [Mass/Vol] Negative Normal Trace, Negative [facility] Comment on above: Order Comment: Speci men Type: BLOOD SPECIMEN Ordering [facility] Address: [address] [place] [address] Performed By: #### 3 3762-6, 96840-1 #### [facility] CLIA [id number] [address] Hemoglobin Ql (U) Negative Normal Negative, Trace [facility] Comment on above: Order Comment: Speci men Type: BLOOD SPECIMEN Ordering Facility: [facility] Address: [address] [place] [address] Performed By: #### 3 3762-6, 99546-0 #### [facility] CLIA [id number] [address] Ketones Ql (U) Negative Normal Negative, Trace [facility] Comment on above: Order Comment: Speci men Type: BLOOD SPECIMEN Ordering Facility: [facility] Address: [address] [place] [address] Performed By: #### 3 3762-6, 57261-6 #### [facility] CLIA [id number] [address] Leukocyte esterase Test strip Ql (U) Negative Normal Negative, 25 Mahin/uL [facility] Comment on above: Order Comment: Speci men Type: BLOOD SPECIMEN Ordering Facility: [facility] Address: [address] [place] [address] Performed By: #### 3 3762-6, 75007-0 #### [facility] CLIA [id number] [address] Nitrite Ql (U) Negative Normal Negative [facility] Comment on above: Order Comment: Speci men Type: BLOOD SPECIMEN Ordering Facility: [facility] Address: [address] [place] [address] Performed By: #### 3 3762-6, 98493-2 #### [facility] CLIA [id number] [address] pH (U) 5.0 [pH] Normal 5.0-8.0 [facility] Comment on above: Order Comment: Speci men Type: BLOOD SPECIMEN Ordering Facility: [facility] Address: [address] [place] [address] Performed By: #### 3 3762-6, 50871-2 #### [facility] CLIA [id number] [address] [place] Protein (U) [Mass/Vol] Negative Normal Trace , Negative [facility] Comment on above: Order Comment: Speci men Type: BLOOD SPECIMEN Ordering Facility: [facility] Address: [address] [place] [address] Performed By: #### 3 3762-6, 14454-9 #### [facility] CLIA [id number] [address] [place] RBC LM.HPF (Urine sed) [#/Area] 0-3 /HPF Normal 0-3 /HPF [facility] Comment on above: Order Comment: Speci men Type: BLOOD SPECIMEN Order[facility] Facility: [facility] Address: [address] [place] [address] Performed By: #### 3 3762-6, 69944-0 #### [facility] CLIA [id number] [address] Specific gravity (U) [Rel density] 1.005 Normal 1.005-1.030 [facility] Comment on above: Order Comment: Speci men Type: BLOOD SPECIMEN Order[facility] Facility: [facility] Address: [address] [place] [address] Performed By: #### 3 3762-6, 72452-6 #### [facility] CLIA [id number] [address] [place] Urobilinogen Ql (U) Normal Normal Normal [facility] Comment on above: Order Comment: Speci men Type: BLOOD SPECIMEN Order[facility] Address: [address] [place] [address] Performed By: #### 3 3762-6, 90833-1 #### [facility] CLIA [id number] [address] [place] WBC LM.HPF (Urine sed) [#/Area] 0-5 /HPF Normal 0-5 /HPF [facility] Comment on above: Order Comment: Speci men Type: BLOOD SPECIMEN Order[facility] Address: [address] [place] [address] Performed By: #### 3 3762-6, 91841-7 #### [facility] CLIA [id number] 1 [place] [address] [place] XR CHEST 1V FRONTALon [...] edema with a small right pleural effusion. Diesel Scoop Operator: ROLANDO Transcribe Date/Time: Dec 27 2023 2:46A Dictated by : SABRINA CROFT MD This examination was interpreted and the report reviewed and electronically signed by: SABRINA CROFT MD on Dec 27 2023 2:53AM EST [id number] [facility] 36on 12-25-2023 36 Made Several attempt s to call Pt to Schedule an AUTOMOBILE UPHOLSTERER APPRENTICE Appt. And NO ANSWER @ [phone] the contact number has not been set-Up so I am unable to Leave a Message. Thank You [facility] 36 Name of Caller: Javier Contact Reason for Appointment: Javier submitted an online request on 12/21/23 regarding a call back to get scheduled for a AUTOMOBILE UPHOLSTERER APPRENTICE appt for Dx: COPD Exacerbation (11/13/23 [facility] ED). Javier states he would like to get scheduled for an apt [place]. Javier states he is available for call back anytime. Please contact Javier and advise. Office Name: Bishnu Hendrickson Medication Refills need, if any: N/A Medication Name: N/A Normal [facility] CNPNon 12-01-2023 CNPN Telephone (PODCCP) AJVIER DICKSON ([id number]) 1970 M Date Time Provider Department 12/01/23 [...] Encounter Status:Closed by CHAZ LOYD on 12/01/23 [facility] Progress Noteon 11-28-2023 Progress Note Made 2 attempts to call patient. Left message for patient to return call. If patient returns call, pleased ask the questions and schedule a hospital follow up appointment. Please send letter also requesting patient call us for scheduling. Thanks! [facility] Progress Note Printed letter and placed in the mail [facility] Progress Noteon 11-27-2023 Progress Note Noted, covering for PCP. [facility] 36on 11-23-2023 36 Noted. [facility] ALLIED HEALTHon 11-23-2023 ALLIED HEALTH HNO ID: [id number] Author: LESLI RODRIGUES Chaplain Service: ? Author Type: Type: Allied Health Filed: 11/23/2023 15:53 Note Text: SPIRITUAL CARE PROGRESS NOTE SERVICE DATE: 11/23/2023 SERVICE TIME: 3:30 PM Ch attended pt as referred and delivered clothing. To contact the Spiritual Care Department: Please call [phone]. SIGNATURE: Chaplain Lorena PATIENT NAME: Javier Dickson DATE: November 23, 2023 TIME: 3:53 PM PAGER/CONTACT #: [phone] [facility] CNDSon 11-23-2023 CNDS HNO ID: [id number] Author: DAVION SUGGS MD Service: Hospital Medicine [...] Attending Provider: Davion Suggs MD Primary Service: [facility] MY CONDITION AT DISCHARGE: Stable REASON [...] right basilar patchy opacity favoring infection. MRSA xbmvd-rbenawjw-tzmzvvo with Bactroban. Legionella pneumococcal antigen negative. Completed [...] and prn Albuterol. Needs outpatient follow-up with agile coach-he was to follow-up with the agile coach in [facility] 5. Tobacco use: Reports he he [...] address listed as his home address in [place]; he knows he can get to his son's friend house from there which is around the corner. At discharge he will be given home-going medications from our pharmacy. He has been recommended to follow-up with PCP in a week and with agile coach. He has been recommended to have follow-up [...] Resume pre-ho (more content not included)... Normal [facility] 36on 11-22-2023 36 Name of caller: Rachel sommer Contact phone number: [phone] Relationship to Patient: [facility] Provider: Dr. Kelsi Batista Practice: [facility] Chief Complaint/Reason for Call: The patient is being seen at [facility] for SOB right now. If you have any questions, please call, Colleen Armenta time of day caller can be reached: 4:30 pm Patient advised that office/PCP has 24-48 business hours to return their call: Yes Normal [facility] ALLIED HEALTHon 11-22-2023 ALLIED HEALTH HNO ID: [id number] Author: VIPUL PEREZ Virtualization Engineer Service: Pulmonary Rehab Author Type: Virtualization Engineer Type: Allied Health Filed: 11/22/2023 18:06 Note [...] Used: Pulmonary Rehabilitation Brochure Signature: Vipul Perez Virtualization Engineer Pager: [phone] Date: November 22, 2023 Time: 6:05 PM [facility] Basic metabolic 2000 panelon 11-22-2023 Anion gap [Moles/Vol] 6 mmol/L Low 9-18 [facility] Comment on above: Order Comment: Speci men Type: BLOOD SPECIMEN [facility] Address: [address] [place] [address] Performed By: #### 3 3762-6, 15689-7 #### [facility] CLIA [id number] [address] [place] Calcium [Mass/Vol] 8.8 mg/dL Normal 8.5-10.2 [facility] Comment on above: Order Comment: Speci men Type: BLOOD SPECIMEN Order[facility] Facility[facility] Address: [address] [place] [address] Performed By: #### 3 3762-6, 79179-1 #### [facility] CLIA [id number] [address] [place] [address] [place] Chloride [Moles/Vol] 97 mmol/L Normal 97-105 [facility] Comment on above: Order Comment: Speci men Type: BLOOD SPECIMEN [facility] Address: [address] [place] [address] Performed By: #### 3 3762-6, 99017-1 #### [facility] CLIA [id number] [address] [place] CO2 [Moles/Vol] 33 mmol/L High 22-30 [facility] Comment on above: Order Comment: Speci men Type: BLOOD SPECIMEN [facility] Address: [address] [place] [address] Performed By: #### 3 3762-6, 33888-5 #### [facility] CLIA [id number] [address] [place] [address] [place] Creatinine [Mass/Vol] 0.62 mg/dL Low 0.73-1.22 [facility] Comment on above: Order Comment: Speci men Type: BLOOD SPECIMEN [facility] Address: [address] [place] [address] Performed By: #### 3 3762-6, 51024-5 #### [facility] CLIA [id number] 1 [place] [address] [place] Creatinine and Glomerular filtration rate.predicted panel (S/P/Bld) 115 mL/min/1.73m??? Normal >=60 [facility] Comment on above: Order Comment: Meng blancas Type: BLOOD SPECIMEN Order[facility] Facility[facility] Address: [address] [place] [address] Result Comment: Ingrid mated Glomerular Filtration Rate [...] actual GFR. Performed By: #### 3 3762-6, 79350-2 #### [facility] CLIA [id number] [address] [place] [address] [place] Glucose [Mass/Vol] 98 mg/dL Normal 74-99 [facility] Comment on above: Order Comment: Meng blancas Type: BLOOD SPECIMEN Order[facility] Address: [address] [place] [address] Result Comment: The [place] Diabetes Association (ADA) provides guidance for cutoff [...] Standards of Medical Care in Diabetes 2016, [place] [employer] Association. Diabetes Care. 2016.39(Suppl 1). Performed By: #### 3 3762-6, 01858-7 #### [facility] CLIA [id number] [address] [place] [address] [place] Potassium [Moles/Vol] 4.5 mmol/L Normal 3.7-5.1 [facility] Comment on above: Order Comment: Speci men Type: BLOOD SPECIMEN [facility] Address: [address] [place] [address] Performed By: #### 3 3762-6, 78456-7 #### [facility] CLIA [id number] [address] Sodium [Moles/Vol] 136 mmol/L Normal 136-144 [facility] Comment on above: Order Comment: Speci men Type: BLOOD SPECIMEN [facility] Address: [address] [place] [address] Performed By: #### 3 3762-6, 67536-8 #### [facility] CLIA [id number] [address] [place] Urea nitrogen [Mass/Vol] 14 mg/dL Normal 9-24 [facility] Comment on above: Order Comment: Speci men Type: BLOOD SPECIMEN [facility] Address: [address] [place] [address] Performed By: #### 3 3762-6, 51280-7 #### [facility] CLIA [id number] [address] STATES OF [facility] CBC panel Auto (Bld)on 11-22 Erythrocyte distribution width (RBC) [Ratio] 12.6 % Normal 11.5-15.0 [facility] Comment on above: Order Comment: Speci men Type: BLOOD SPECIMENOrdering Facility: [facility] Address: [address] [place] [address] Performed By: #### 5 8410-2 ####[facility]ORYCLIA [id number] [address] OF [facility] Hematocrit (Bld) [Volume fraction] 41.0 % Normal 39.0-51.0 [facility] Comment on above: Order Comment: Speci men Type: BLOOD SPECIMENOrdering Facility: [facility] Address: [address] [place] [address] Performed By: #### 5 8410-2 ####[facility] [id number] [address] OF [facility] Hemoglobin (Bld) [Mass/Vol] 13.3 g/dL Normal 13.0-17.0 [facility] Comment on above: Order Comment: Speci men Type: BLOOD SPECIMENOrdering Facility: [facility] Address: [address] [place] [address] Performed By: #### 5 8410-2 ####[facility] [id number] [address] OF [facility] MCH (RBC) [Entitic mass] 31.1 pg Normal 26.0-34.0 [facility] Comment on above: Order Comment: Speci men Type: BLOOD SPECIMENOrdering Facility: [facility] Address: [address] [place] [address] Performed By: #### 5 8410-2 ####[facility] [id number] [address] MCHC (RBC) [Mass/Vol] 32.4 g/dL Normal 30.5-36.0 [facility] Comment on above: Order Comment: Speci men Type: BLOOD SPECIMENOrdering Facility: [facility] Address: [address] [place] [address] Performed By: #### 5 8410-2 ####[facility] [id number] [address] MCV (RBC) [Entitic vol] 95.8 fL Normal 80.0-100.0 [facility] Comment on above: Order Comment: Speci men Type: BLOOD SPECIMENOrdering Facility: [facility] Address: [address] [place] [address] Performed By: #### 5 8410-2 ####[facility] [id number] [address] Nucleated RBC (Bld) [#/Vol] 10*3/uL Normal <0.01 [facility] Comment on above: Order Comment: Speci men Type: BLOOD SPECIMENOrdering Facility: [facility] Address: [address] [place] [address] Performed By: #### 5 8410-2 ####[facility]ORY[facility]IA [id number] [address] [place] Platelet mean volume (Bld) [Entitic vol] 9.6 fL Normal 9.0-12.7 [facility] Comment on above: Order Comment: Speci men Type: BLOOD SPECIMENOrdering Facility: [facility] Address: [address] [place] [address] Performed By: #### 5 8410-2 ####[facility] LABORATORYCLIA [id number] [place] [address] [place] Platelets (Bld) [#/Vol] 338 10*3/uL Normal 150-400 [facility] Comment on above: Order Comment: Speci men Type: BLOOD SPECIMENOrdering Facility: [facility] Address: [address] [place] [address] Performed By: #### 5 8410-2 ####[facility] LABORATORYCLIA [id number] [place] [address] [place] RBC (Bld) [#/Vol] 4.28 10*6/uL Normal 4.20-6.00 [facility] Comment on above: Order Comment: Speci men Type: BLOOD SPECIMENOrdering Facility: [facility] Address: [address] [place] [address] Performed By: #### 5 8410-2 ####[facility] LABORATORYCLIA [id number] [place] [address] [place] WBC (Bld) [#/Vol] 8.66 10*3/uL Normal 3.70-11.00 [facility] Comment on above: Order Comment: Speci men Type: BLOOD SPECIMENOrdering Facility: [facility] Address: [address] [place] [address] Performed By: #### 5 8410-2 ####[facility] LABORATORYCLIA [id number] [address] [place] CONSULTon 11-22-2023 CONSULT HNO ID: [id number] Author: NEPTALI BUTLER, PhD Service: Bioethics Author [...] DATE: November 22, 2023 TIME: 4:41 PM [facility] NURSING PROGon 11-22-2023 NURSING PROG HNO ID: [id number] Author: NAE BAKER RN Service: ? Author Type: Registered Nurse Type: Nursing Progress Note Filed: 11/22/2023 10:56 Note Text: CASE MANAGEMENT HOME OXYGEN EVALUATION SERVICE DATE: 11/22/2023 Patient Location: [place] [address] SERVICE TIME: 1045 Assessment: Patient's SPO2 on room air at rest is 92-94%. Patient's SPO2 on room air with exercise is 88%. Patient's SPO2 on room air at rest following exercise (2 minutes) is 90%. SIGNATURE: Nae Baker RN PATIENT NAME: Javier Dickson DATE: November 22, 2023 TIME: 10:45 AM PAGER/CONTACT #: [phone] [facility] NUTRITIONon 11-22-2023 NUTRITION HNO ID: [id number] Author: ELIZABETH LITTLE RD Service: Nutrition Therapy [...] fat/muscle stores, Low BMI Estimated kilocalorie needs: 9309-9050 (underweight, COPD) Calorie Calculation Method: 30-35 kcals/kg [...] abuse who was admitted for COPD exacerbation ([facility]) [J44.1] and being treated for acute respiratory failure 2/2 PNA and RSV. PAST MEDICAL HISTORY Diagnosis Date Bowel obstruction (HCC) COPD (chronic obstructive pulmonary disease) ([facility]) Intake History: Nutrition Intake Prior to Admission: [...] NOW Question Answer Comment Supplement 1 BOOST [facility] STRAWBERRY Supplement 1 Frequency BREAKFAST Supplement 2 BOOST [facility] VANILLA Supplement 2 Frequency DINNER Supplement [...] November 22, 2023 TIME: 10:18 AM Normal [facility] NURSING PROGon 11-21-2023 NURSING PROG HNO ID: [id number] Author: JACKIE JONES, RN Service: Nursing Author Type: Registered Nurse Type: Nursing Progress Note Filed: 11/21/2023 13:23 Note Text: Other: SpO2 room air at rest 92% SpO2 room air with exertion 87% SpO2 90% on 3L NC with exertion Jackie jones rn Normal [facility] NUTRITIONon 11-21-2023 NUTRITION HNO ID: [id number] Author: REBECCA ODONNELL DTR Service: Nutrition Therapy Author Type: Mechanical Design Engineer Type: Nutrition Filed: 11/21/2023 14:14 Note Text: NUTRITION THERAPY MEDICATION COORDINATOR NOTE SERVICE DATE: 11/21/2023 SERVICE TIME: 1110 Visit Type: Length of Stay Patient reports decreasing appetite since admission and unintentional weight loss over the past 6 months. Noted fat/muscle loss. Discussed patient with Registered Dietitian. Will refer to RD (Registered Dietitian) for further nutrition interventions. Plan of Care: Supplements: Boost [facility] (twice per day) Follow-Up: Refer to [...] November 21, 2023 TIME: 2:11 PM Normal [facility] NURSING PROGon 11-20-2023 NURSING PROG HNO ID: [id number] Author: JACKIE JONES, RN Service: Nursing Author Type: Registered Nurse Type: Nursing Progress Note Filed: 11/20/2023 10:45 Note Text: Other: SpO2 room air at rest 92% SpO2 room air with exertion 86% SpO2 92% on 4L NC with exertion Jackie jones rn Normal [facility] ALLIED HEALTHon 11-19-2023 ALLIED HEALTH HNO ID: [id number] Author: MEDARDO PENALOZA RT(R) Service: ? Author [...] Anders(Jorge) November 19, 2023 12:30 PM Normal [facility] Basic metabolic 2000 panelon 11-19-2023 Anion gap [Moles/Vol] 7 mmol/L Low 9-18 [facility] Comment on above: Order Comment: Speci men Type: BLOOD SPECIMEN [facility] Address: [address] [place] [address] Performed By: #### 3 3762-6, 48908-5 #### [facility] CLIA [id number] [address] [place] Calcium [Mass/Vol] 8.9 mg/dL Normal 8.5-10.2 [facility] Comment on above: Order Comment: Speci men Type: BLOOD SPECIMEN [facility] Address: [address] [place] [address] Performed By: #### 3 3762-6, 92170-2 #### [facility] CLIA [id number] 1 [place] [address] [place] Chloride [Moles/Vol] 94 mmol/L Low 97-105 [facility] Comment on above: Order Comment: Speci men Type: BLOOD SPECIMEN [facility] Address: [address] [place] [address] Performed By: #### 3 3762-6, 75521-1 #### [facility] CLIA [id number] [address] [place] CO2 [Moles/Vol] 35 mmol/L High 22-30 [facility] Comment on above: Order Comment: Speci men Type: BLOOD SPECIMEN [facility] Address: [address] [place] [address] Performed By: #### 3 3762-6, 52184-8 #### [facility] CLIA [id number] 1 [place] [address] [place] Creatinine [Mass/Vol] 0.62 mg/dL Low 0.73-1.22 [facility] Comment on above: Order Comment: Speci men Type: BLOOD SPECIMEN [facility] Address: [address] [place] [address] Performed By: #### 3 3762-6, 15623-5 #### [facility] CLIA [id number] [address] [place] Creatinine and Glomerular filtration rate.predicted panel (S/P/Bld) 115 mL/min/1.73m??? Normal >=60 [facility] Comment on above: Order Comment: Meng blancas Type: BLOOD SPECIMEN [facility] Address: [address] [place] [address] Result Comment: Ingrid mated Glomerular Filtration Rate [...] actual GFR. Performed By: #### 3 3762-6, 81846-1 #### [facility] CLIA [id number] 1 [place] [address] [place] Glucose [Mass/Vol] 92 mg/dL Normal 74-99 [facility] Comment on above: Order Comment: Meng blancas Type: BLOOD SPECIMEN [facility] Address: [address] [place] [address] Result Comment: The [place] Diabetes Association (ADA) provides guidance for cutoff [...] Standards of Medical Care in Diabetes 2016, [place] [employer]. Diabetes Care. 2016.39(Suppl 1). Performed By: #### 3 3762-6, 96966-5 #### [facility] CLIA [id number] [address] [place] [address] [place] Potassium [Moles/Vol] 4.4 mmol/L Normal 3.7-5.1 [facility] Comment on above: Order Comment: Meng blancas Type: BLOOD SPECIMEN [facility] Address: [address] [place] [id number] Performed By: #### 3 3762-6, 23419-2 #### [facility] CLIA [id number] [address] STATES [facility] Sodium [Moles/Vol] 136 mmol/L Normal 136-144 [facility] Comment on above: Order Comment: Speci men Type: BLOOD SPECIMEN [facility] Address: [address] [place] [address] Performed By: #### 3 3762-6, 54837-8 #### [facility] CLIA [id number] [address] [place] Urea nitrogen [Mass/Vol] 15 mg/dL Normal 9-24 [facility] Comment on above: Order Comment: Speci men Type: BLOOD SPECIMEN [facility] Address: [address] [place] [address] Performed By: #### 3 3762-6, 68906-6 #### [facility] CLIA [id number] [address] [place] CBC panel Auto (Bld)on 11-19 Erythrocyte distribution width (RBC) [Ratio] 12.5 % Normal 11.5-15.0 [facility] Comment on above: Order Comment: Speci men Type: BLOOD SPECIMEN [facility] Address: [address] [place] [address] Performed By: #### 3 3762-6, 71051-3 #### [facility] CLIA [id number] [address] [place] Hematocrit (Bld) [Volume fraction] 40.5 % Normal 39.0-51.0 [facility] Comment on above: Order Comment: Speci men Type: BLOOD SPECIMEN [facility] Address: [address] [place] [address] Performed By: #### 3 3762-6, 12567-9 #### [facility] CLIA [id number] [address] [place] Hemoglobin (Bld) [Mass/Vol] 13.0 g/dL Normal 13.0-17.0 [facility] Comment on above: Order Comment: Speci men Type: BLOOD SPECIMEN [facility] Address: [address] [place] [address] Performed By: #### 3 3762-6, 69682-4 #### [facility] CLIA [id number] [address] MCH (RBC) [Entitic mass] 30.3 pg Normal 26.0-34.0 [facility] Comment on above: Order Comment: Speci men Type: BLOOD SPECIMEN [facility] Address: [address] [place] [address] Performed By: #### 3 3762-6, 04083-1 #### [facility] CLIA [id number] [address] MCHC (RBC) [Mass/Vol] 32.1 g/dL Normal 30.5-36.0 [facility] Comment on above: Order Comment: Speci men Type: BLOOD SPECIMEN [facility] Address: [address] [place] [address] Performed By: #### 3 3762-6, 12891-0 #### [facility] CLIA [id number] [address] MCV (RBC) [Entitic vol] 94.4 fL Normal 80.0-100.0 [facility] Comment on above: Order Comment: Speci men Type: BLOOD SPECIMEN [facility] Address: [address] [place] [address] Performed By: #### 3 3762-6, 10167-6 #### [facility] CLIA [id number] [address] Nucleated RBC (Bld) [#/Vol] 10*3/uL Normal <0.01 [facility] Comment on above: Order Comment: Speci men Type: BLOOD SPECIMEN [facility] Address: [address] [place], [place] [address] Performed By: #### 3 3762-6, 51635-8 #### [facility] CLIA [id number] [address] [place] Platelet mean volume (Bld) [Entitic vol] 9.9 fL Normal 9.0-12.7 [facility] Comment on above: Order Comment: Speci men Type: BLOOD SPECIMEN [facility] Address: [address] [place] [address] Performed By: #### 3 3762-6, 83542-5 #### [facility] CLIA [id number] [address] [place] Platelets (Bld) [#/Vol] 289 10*3/uL Normal 150-400 [facility] Comment on above: Order Comment: Speci men Type: BLOOD SPECIMEN [facility] Address: [address] [place] [address] Performed By: #### 3 3762-6, 64448-0 #### [facility] CLIA [id number] [address] [place] RBC (Bld) [#/Vol] 4.29 10*6/uL Normal 4.20-6.00 [facility] Comment on above: Order Comment: Speci men Type: BLOOD SPECIMEN [facility] Address: [address] [place] [address] Performed By: #### 3 3762-6, 13088-8 #### [facility] CLIA [id number] [address] [place] WBC (Bld) [#/Vol] 7.58 10*3/uL Normal 3.70-11.00 [facility] Comment on above: Order Comment: Speci men Type: BLOOD SPECIMEN [facility] Address: [address] [place] [address] Performed By: #### 3 3762-6, 87050-3 #### [facility] CLIA [id number] [address] [facility] BRAIN WO IVCONon 11-19-[address] BRAIN WO IVCON * * *Final Report* * * DATE OF EXAM: Nov 19 2023 12:33PM [facility] 0504 - CT BRAIN WO IVCON [...] orbits and extracranial soft tissues are unremarkable. Collar Tacker (topogram) images: No additional findings. IMPRESSION: No acute intracranial findings. Diesel Scoop Operator: PSCB Transcribe Date/Time: Nov 19 2023 12:37P Dictated by : HOPE HENRIQUEZ MD This examination was interpreted and the report reviewed and electronically signed by: HOPE HENRIQUEZ MD on Nov 19 2023 12:38PM EST [id number] Normal [facility] Basic metabolic 2000 panelon 11-18-2023 Anion gap [Moles/Vol] 7 mmol/L Low 9-18 [facility] Comment on above: Order Comment: Meng blancas Type: BLOOD SPECIMEN [facility] Address: [address] [place] [address] Performed By: #### 3 3762-6, 87999-9 #### [facility] CLIA [id number] [address] Calcium [Mass/Vol] 8.6 mg/dL Normal 8.5-10.2 [facility] Comment on above: Order Comment: Meng blancas Type: BLOOD SPECIMEN [facility] Address: [address] [place] [address] Performed By: #### 3 3762-6, 09568-4 #### [facility] CLIA [id number] [address] [place] Chloride [Moles/Vol] 92 mmol/L Low 97-105 [facility] Comment on above: Order Comment: Speci men Type: BLOOD SPECIMEN [facility] Address: [address] [place] [address] Performed By: #### 3 3762-6, 98753-3 #### [facility] CLIA [id number] [address] [place] CO2 [Moles/Vol] 35 mmol/L High 22-30 [facility] Comment on above: Order Comment: Speci men Type: BLOOD SPECIMEN [facility] Address: [address] [place] [address] Performed By: #### 3 3762-6, 41856-1 #### [facility] CLIA [id number] [address] [place] Creatinine [Mass/Vol] 0.57 mg/dL Low 0.73-1.22 [facility] Comment on above: Order Comment: Speci men Type: BLOOD SPECIMEN [facility] Address: [address] [place] [address] Performed By: #### 3 3762-6, 44174-6 #### [facility] CLIA [id number] [address] Creatinine and Glomerular filtration rate.predicted panel (S/P/Bld) 118 mL/min/1.73m??? Normal >=60 [facility] Comment on above: Order Comment: Speci men Type: BLOOD SPECIMEN [facility] Address: [address] [place] [address] Result Comment: Ingrid mated Glomerular Filtration Rate [...] actual GFR. Performed By: #### 3 3762-6, 08477-3 #### [facility] CLIA [id number] 1 [place] [address] [place] Glucose [Mass/Vol] 101 mg/dL High 74-99 [facility] Comment on above: Order Comment: Meng blancas Type: BLOOD SPECIMEN [facility] Address: [address] [place] [address] Result Comment: The [place] Diabetes Association (ADA) provides guidance for cutoff [...] Standards of Medical Care in Diabetes 2016, [place] [employer]. Diabetes Care. 2016.39(Suppl 1). Performed By: #### 3 3762-6, 42694-6 #### [facility] CLIA [id number] 1 [place] [address] [place] Potassium [Moles/Vol] 4.3 mmol/L Normal 3.7-5.1 [facility] Comment on above: Order Comment: Meng blancas Type: BLOOD SPECIMEN [facility] Address: [address] [place] [address] Performed By: #### 3 3762-6, 93492-3 #### [facility] CLIA [id number] 1 [place] [address] [place] Sodium [Moles/Vol] 134 mmol/L Low 136-144 [facility] Comment on above: Order Comment: Meng blancas Type: BLOOD SPECIMEN [facility] Address: [address] [place] [address] Performed By: #### 3 3762-6, 36083-8 #### [facility] CLIA [id number] [address] STATES [facility] Urea nitrogen [Mass/Vol] 17 mg/dL Normal 9-24 [facility] Comment on above: Order Comment: Speci men Type: BLOOD SPECIMEN [facility] Address: [address] [place] [address] Performed By: #### 3 3762-6, 55151-7 #### [facility] CLIA [id number] [address] STATES OF [facility] CBC panel Auto (Bld)on 11-18 Erythrocyte distribution width (RBC) [Ratio] 12.6 % Normal 11.5-15.0 [facility] Comment on above: Order Comment: Speci men Type: BLOOD SPECIMEN [facility] Address: [address] [place] [address] Performed By: #### 3 3762-6, 63285-0 #### [facility] CLIA [id number] [address] OF [facility] Hematocrit (Bld) [Volume fraction] 42.0 % Normal 39.0-51.0 [facility] Comment on above: Order Comment: Speci men Type: BLOOD SPECIMEN [facility] Address: [address] [place] [address] Performed By: #### 3 3762-6, 41939-5 #### [facility] CLIA [id number] [address] [place] Hemoglobin (Bld) [Mass/Vol] 13.7 g/dL Normal 13.0-17.0 [facility] Comment on above: Order Comment: Speci men Type: BLOOD SPECIMEN [facility] Address: [address] [place] [address] Performed By: #### 3 3762-6, 02270-6 #### [facility] CLIA [id number] [address] MCH (RBC) [Entitic mass] 31.0 pg Normal 26.0-34.0 [facility] Comment on above: Order Comment: Speci men Type: BLOOD SPECIMEN [facility] Address: [address] [place] [address] Performed By: #### 3 3762-6, 99939-4 #### [facility] CLIA [id number] [address] MCHC (RBC) [Mass/Vol] 32.6 g/dL Normal 30.5-36.0 [facility] Comment on above: Order Comment: Speci men Type: BLOOD SPECIMEN [facility] Address: [address] [place] [address] Performed By: #### 3 3762-6, 40290-6 #### [facility] CLIA [id number] [address] MCV (RBC) [Entitic vol] 95.0 fL Normal 80.0-100.0 [facility] Comment on above: Order Comment: Speci men Type: BLOOD SPECIMEN [facility] Address: [address] [place] [address] Performed By: #### 3 3762-6, 56096-5 #### [facility] CLIA [id number] [address] Nucleated RBC (Bld) [#/Vol] 10*3/uL Normal <0.01 [facility] Comment on above: Order Comment: Speci men Type: BLOOD SPECIMEN [facility] Address: [address] [place] [address] Performed By: #### 3 3762-6, 21185-9 #### [facility] CLIA [id number] [address] Platelet mean volume (Bld) [Entitic vol] 9.9 fL Normal 9.0-12.7 [facility] Comment on above: Order Comment: Speci men Type: BLOOD SPECIMEN [facility] Address: [address] [place] [address] Performed By: #### 3 3762-6, 20146-0 #### [facility] CLIA [id number] [address] Platelets (Bld) [#/Vol] 254 10*3/uL Normal 150-400 [facility] Comment on above: Order Comment: Speci men Type: BLOOD SPECIMEN [facility] Address: [address] [place] [address] Performed By: #### 3 3762-6, 26619-4 #### [facility] CLIA [id number] [address] RBC (Bld) [#/Vol] 4.42 10*6/uL Normal 4.20-6.00 [facility] Comment on above: Order Comment: Speci men Type: BLOOD SPECIMEN [facility] Address: [address] [place] [address] Performed By: #### 3 3762-6, 16123-9 #### [facility] CLIA [id number] [address] WBC (Bld) [#/Vol] 11.04 10*3/uL High 3.70-11.00 [facility] Comment on above: Order Comment: Speci men Type: BLOOD SPECIMEN [facility] Address: [address] [place] [address] Performed By: #### 3 3762-6, 11792-0 #### [facility] CLIA [id number] [address] [place] Basic metabolic 2000 panelon 11-17-2023 Anion gap [Moles/Vol] 2 mmol/L Low 9-18 [facility] Comment on above: Order Comment: Speci men Type: BLOOD SPECIMENOrdering Facility: [facility] Address: [address] [place] [address] Performed By: #### 2 4321-2 ####[facility] [id number] [place] [address] [place] Calcium [Mass/Vol] 8.8 mg/dL Normal 8.5-10.2 [facility] Comment on above: Order Comment: Speci men Type: BLOOD SPECIMENOrdering Facility: [facility] Address: [address] [place] [address] Performed By: #### 2 4321-2 ####[facility]ORYCLIA [id number] [place] [address] [place] Chloride [Moles/Vol] 89 mmol/L Low 97-105 [facility] Comment on above: Order Comment: Speci men Type: BLOOD SPECIMENOrdering Facility: [facility] Address: [address] [place] [address] Performed By: #### 2 4321-2 ####[facility]ORY[facility]IA [id number] [address] [place] CO2 [Moles/Vol] 43 mmol/L High 22-30 [facility] Comment on above: Order Comment: Speci men Type: BLOOD SPECIMENOrdering Facility: [facility] Address: [address] [place] [address] Performed By: #### 2 4321-2 ####[facility]ORYCLIA [id number] [address] [place] Creatinine [Mass/Vol] 0.62 mg/dL Low 0.73-1.22 [facility] Comment on above: Order Comment: Speci men Type: BLOOD SPECIMENOrdering Facility: [facility] Address: [address] [place] [address] Performed By: #### 2 4321-2 ####[facility]ORYCLIA [id number] [address] [place] Creatinine and Glomerular filtration rate.predicted panel (S/P/Bld) 115 mL/min/1.73m??? Normal >=60 [facility] Comment on above: Order Comment: Speci men Type: BLOOD SPECIMENOrdering Facility: [facility] Address: [address] [place] [address] Result Comment: Ingrid mated Glomerular Filtration Rate [...] actual GFR. Performed By: #### 2 4321-2 ####[facility]ORYCLIA [id number] [place] [address] [place] Glucose [Mass/Vol] 99 mg/dL Normal 74-99 [facility] Comment on above: Order Comment: Meng blancas Type: BLOOD SPECIMENOrdering Facility: [facility] Address: [address] [place] [address] Result Comment: The [place] Diabetes Association (ADA) provides guidance for cutoff [...] Standards of Medical Care in Diabetes 2016, [place] [employer]. Diabetes Care. 2016.39(Suppl 1). Performed By: #### 2 4321-2 ####[facility]ORYCLIA [id number] [place] [id number] [place] Potassium [Moles/Vol] 4.0 mmol/L Normal 3.7-5.1 [facility] Comment on above: Order Comment: Meng blancas Type: BLOOD SPECIMENOrdering Facility: [facility] Address: [address] [place] [id number] Performed By: #### 2 4321-2 ####[facility]ORATORYCLIA [id number] [place] [address] [place] Sodium [Moles/Vol] 134 mmol/L Low 136-144 [facility] Comment on above: Order Comment: Speci men Type: BLOOD SPECIMENOrdering Facility: [facility] Address: [address] [place] [address] Performed By: #### 2 4321-2 ####[facility] [id number] [address] STATES [facility] Urea nitrogen [Mass/Vol] 16 mg/dL Normal 9-24 [facility] Comment on above: Order Comment: Speci men Type: BLOOD SPECIMENOrdering Facility: [facility] Address: [address] [place] [address] Performed By: #### 2 4321-2 ####[facility] [id number] [address] OF [facility] CBC panel Auto (Bld)on 11-17 Erythrocyte distribution width (RBC) [Ratio] 12.2 % Normal 11.5-15.0 [facility] Comment on above: Order Comment: Speci men Type: BLOOD SPECIMEN [facility] Address: [address] [place] [address] Performed By: #### 3 3762-6, 81820-4 #### [facility] CLIA [id number] [address] [place] Hematocrit (Bld) [Volume fraction] 40.2 % Normal 39.0-51.0 [facility] Comment on above: Order Comment: Speci men Type: BLOOD SPECIMEN [facility] Address: [address] [place] [address] Performed By: #### 3 3762-6, 44475-8 #### [facility] CLIA [id number] [address] [place] Hemoglobin (Bld) [Mass/Vol] 12.8 g/dL Low 13.0-17.0 [facility] Comment on above: Order Comment: Speci men Type: BLOOD SPECIMEN [facility] Address: [address] [place] [address] Performed By: #### 3 3762-6, 24673-5 #### [facility] CLIA [id number] [address] MCH (RBC) [Entitic mass] 30.5 pg Normal 26.0-34.0 [facility] Comment on above: Order Comment: Speci men Type: BLOOD SPECIMEN [facility] Address: [address] [place] [address] Performed By: #### 3 3762-6, 73479-8 #### [facility] CLIA [id number] [address] MCHC (RBC) [Mass/Vol] 31.8 g/dL Normal 30.5-36.0 [facility] Comment on above: Order Comment: Speci men Type: BLOOD SPECIMEN [facility] Address: [address] [place] [address] Performed By: #### 3 376-6, 88513-9 #### [facility] CLIA [id number] [address] MCV (RBC) [Entitic vol] 95.9 fL Normal 80.0-100.0 [facility] Comment on above: Order Comment: Speci men Type: BLOOD SPECIMEN [facility] Address: [address] [place] [address] Performed By: #### 3 3762-6, 22821-6 #### [facility] CLIA [id number] [address] Nucleated RBC (Bld) [#/Vol] 10*3/uL Normal <0.01 [facility] Comment on above: Order Comment: Speci men Type: BLOOD SPECIMEN [facility] Address: [address] [place] [address] Performed By: #### 3 3762-6, 20504-8 #### [facility] CLIA [id number] [address] Platelet mean volume (Bld) [Entitic vol] 10.0 fL Normal 9.0-12.7 [facility] Comment on above: Order Comment: Speci men Type: BLOOD SPECIMEN [facility] Address: [address] [place] [address] Performed By: #### 3 3762-6, 51822-1 #### [facility] CLIA [id number] [address] Platelets (Bld) [#/Vol] 239 10*3/uL Normal 150-400 [facility] Comment on above: Order Comment: Speci men Type: BLOOD SPECIMEN [facility] Address: [address] [place] [address] Performed By: #### 3 3762-6, 17381-8 #### [facility] CLIA [id number] [address] RBC (Bld) [#/Vol] 4.19 10*6/uL Low 4.20-6.00 [facility] Comment on above: Order Comment: Speci men Type: BLOOD SPECIMEN [facility] Address: [address] [place] [address] Performed By: #### 3 3762-6, 11981-1 #### [facility] CLIA [id number] [address] WBC (Bld) [#/Vol] 9.04 10*3/uL Normal 3.70-11.00 [facility] Comment on above: Order Comment: Speci men Type: BLOOD SPECIMEN [facility] Address: [address] [place] [address] Performed By: #### 3 3762-6, 38510-5 #### [facility] CLIA [id number] [address] CNPNon 11-17-2023 VANESSAN Telephone (NOAM) YESSIJAVIER ([id number]) 1970 M Date Time Provider Department 11/17/23 DEANNA FLORES During your visit today, we recorded the following information about you: Deanna Flores APRN.POP SINGER 11/17/2023 10:[address] Cristina, Please sign the orders for Javier Dickson (CXR for resolution PNA and PFTs for baseline spirometry) The patient will also need a follow up with our office afterwards. Thank you! Deanna Flores APRN.POP SINGER November 17, 2023 10:16 AM Allergies As of Date: 11/17/2023 (No Known Allergies) Date Reviewed: 11/17/2023 Reviewed by: Deanna Flores APRN.POP SINGER - Fully Assessed Reason for Visit: Orders [681] Primary Visit Diagnosis:Chronic obstructive pulmonary disease, unspecified COPD type (HCC) [J44.9] Order(s):XR CHEST 2V FRONTAL/LAT [4116003] Order #: [id number] FUTURE SPIROMETRY BASELINE ONLY [0690175] Order #: [id number] FUTURE LUNG DIFFUSION CAPACITY (DLCO) [6806951] Order #: [id number] FUTURE LUNG VOLUMES [6807137] Order #: [id number] FUTURE Prescriptions as of 11/17/2023 - albuterol [...] Status:Closed by BETSY CRISTINA on 11/17/23 Normal [facility] NURSING PROGon 11-17-2023 NURSING PROG HNO ID: [id number] Author: ELVIS PALMER, RN Service: Nursing Author Type: Registered Nurse Type: Nursing Progress Note Filed: 11/17/2023 12:27 Note Text: Other: Destat study: Pts O2 dropped to 85% on RA at rest. Pts O2 recovered to 95% on 2L while at rest. Normal [facility] THERAPY NTon 11-17-2023 THERAPY NT HNO ID: [id number] Author: MAIKEL RAMOS, ONUR Service: Respiratory Therapy [...] is willing to try Pulmonary Rehab. Normal [facility] NURSING PROGon 11-16-2023 NURSING PROG HNO ID: [id number] Author: MONTSERRAT PLUMMER RN Service: Nursing Author Type: Registered Nurse Type: Nursing Progress Note Filed: 11/16/2023 09:51 Note Text: Transfer Note: PATIENT NAME: Javier Dickson Patient Location: [place] [address] [address] Room: [place] [address] Patient transferred into room/unit 4220 in stable condition. Actions taken: Report given/called to Lisa SPAIN. Normal [facility] XR CHEST 1V FRONTALon 2023 XR [...] 11/13/2023 RESULT: Lines, tubes, and devices: Overlying child monitor leads. Lungs and pleura: Changes in the lungs consistent with emphysema. Improving peribronchial densities in the right lower lobe. Cardiomediastinal silhouette: Normal cardiomediastinal silhouette. Other: No significant additional findings. IMPRESSION: Improving peribronchial infiltrates right lower lung. Changes of emphysema. Diesel Scoop Operator: ROLANDO Transcribe Date/Time: Nov 16 2023 7:02A Dictated by : PAULA MICHAELS MD This examination was interpreted and the report reviewed and electronically signed by: PAULA MICHAELS MD on Nov 16 2023 7:05AM EST [id number] Normal [facility] CBC W Auto Differential pane l (Bld)on 11-15-2023 Basophils (Bld) [#/Vol] 10*3/uL Normal <0.11 [facility] Comment on above: Order Comment: Speci men Type: BLOOD SPECIMEN [facility] Address: [address] [place] [address] Performed By: #### L [id number] #### [facility] CLIA [id number] [address] [place] Basophils/100 WBC (Bld) 0.1 % Normal [facility] Comment on above: Order Comment: Speci men Type: BLOOD SPECIMEN [facility] Address: [address] [place] [address] Performed By: #### L [id number] #### [facility] CLIA [id number] [address] [place] Differential cell count method Nom (Bld) Auto Normal [facility] Comment on above: Order Comment: Speci men Type: BLOOD SPECIMEN [facility] Address: [address] [place] [address] Performed By: #### L [id number] #### [facility] CLIA [id number] 1 [place] [address] [place] Eosinophils (Bld) [#/Vol] 10*3/uL Normal <0.46 [facility] Comment on above: Order Comment: Speci men Type: BLOOD SPECIMEN [facility] Address: [address] [place] [address] Performed By: #### L [id number] #### [facility] CLIA [id number] 1 [place] [address] [place] Eosinophils/100 WBC (Bld) 0.0 % Normal [facility] Comment on above: Order Comment: Speci men Type: BLOOD SPECIMEN [facility] Address: [address] [place] [address] Performed By: #### L [id number] #### [facility] CLIA [id number] [address] STATES OF [facility] Erythrocyte distribution width (RBC) [Ratio] 12.4 % Normal 11.5-15.0 [facility] Comment on above: Order Comment: Speci men Type: BLOOD SPECIMEN [facility] Address: [address] [place] [address] Performed By: #### L [id number] #### [facility] CLIA [id number] [address] [place] Hematocrit (Bld) [Volume fraction] 41.6 % Normal 39.0-51.0 [facility] Comment on above: Order Comment: Speci men Type: BLOOD SPECIMEN [facility] Address: [address] [place] [address] Performed By: #### L [id number] #### [facility] CLIA [id number] [address] [place] Hemoglobin (Bld) [Mass/Vol] 13.3 g/dL Normal 13.0-17.0 [facility] Comment on above: Order Comment: Speci men Type: BLOOD SPECIMEN [facility] Address: [address] [place] [address] Performed By: #### L [id number] #### [facility] CLIA [id number] [address] [place] Immature granulocytes (Bld) [#/Vol] 0.05 10*3/uL Normal <0.10 [facility] Comment on above: Order Comment: Speci men Type: BLOOD SPECIMEN [facility] Address: [address] [place] [address] Performed By: #### L [id number] #### [facility] CLIA [id number] [address] Immature granulocytes/100 WBC (Bld) 0.4 % Normal [facility] Comment on above: Order Comment: Speci men Type: BLOOD SPECIMEN [facility] Address: [address] [place] [address] Performed By: #### L [id number] #### [facility] CLIA [id number] [address] OF [facility] Lymphocytes (Bld) [#/Vol] 1.12 10*3/uL Normal 1.00-4.00 [facility] Comment on above: Order Comment: Speci men Type: BLOOD SPECIMEN [facility] Address: [address] [place] [address] Performed By: #### L [id number] #### [facility] CLIA [id number] [address] Lymphocytes/100 WBC (Bld) 9.3 % Normal [facility] Comment on above: Order Comment: Speci men Type: BLOOD SPECIMEN [facility] Address: [address] [place] [address] Performed By: #### L [id number] #### [facility] CLIA [id number] [address] MCH (RBC) [Entitic mass] 31.2 pg Normal 26.0-34.0 [facility] Comment on above: Order Comment: Speci men Type: BLOOD SPECIMEN [facility] Address: [address] [place] [address] Performed By: #### L [id number] #### [facility] CLIA [id number] [address] MCHC (RBC) [Mass/Vol] 32.0 g/dL Normal 30.5-36.0 [facility] Comment on above: Order Comment: Speci men Type: BLOOD SPECIMEN [facility] Address: [address] [place] [address] Performed By: #### L [id number] #### [facility] CLIA [id number] [address] [place] MCV (RBC) [Entitic vol] 97.7 fL Normal 80.0-100.0 [facility] Comment on above: Order Comment: Speci men Type: BLOOD SPECIMEN [facility] Address: [address] [place] [address] Performed By: #### L [id number] #### [facility] CLIA [id number] [address] [place] Monocytes (Bld) [#/Vol] 0.95 10*3/uL High <0.87 [facility] Comment on above: Order Comment: Speci men Type: BLOOD SPECIMEN [facility] Address: [address] [place] [address] Performed By: #### L [id number] #### [facility] CLIA [id number] [address] Monocytes/100 WBC (Bld) 7.9 % Normal [facility] Comment on above: Order Comment: Speci men Type: BLOOD SPECIMEN [facility] Address: [address] [place] [address] Performed By: #### L [id number] #### [facility] CLIA [id number] [address] [place] Neutrophils (Bld) [#/Vol] 9.87 10*3/uL High 1.45-7.50 [facility] Comment on above: Order Comment: Speci men Type: BLOOD SPECIMEN [facility] Address: [address] [place] [address] Performed By: #### L [id number] #### [facility] CLIA [id number] [address] [place] Neutrophils/100 WBC (Bld) 82.3 % Normal [facility] Comment on above: Order Comment: Speci men Type: BLOOD SPECIMEN [facility] Address: [address] [place] [address] Performed By: #### L [id number] #### [facility] CLIA [id number] [address] [place] Nucleated RBC (Bld) [#/Vol] 10*3/uL Normal <0.01 [facility] Comment on above: Order Comment: Speci men Type: BLOOD SPECIMEN [facility] Address: [address] [place] [address] Performed By: #### L [id number] #### [facility] CLIA [id number] [address] [place] Nucleated RBC/100 WBC (Bld) [Ratio] 0.0 /100 WBC Normal [facility] Comment on above: Order Comment: Speci men Type: BLOOD SPECIMEN [facility] Address: [address] [place] [address] Performed By: #### L [id number] #### [facility] CLIA [id number] [address] [place] Platelet mean volume (Bld) [Entitic vol] 10.3 fL Normal 9.0-12.7 [facility] Comment on above: Order Comment: Speci men Type: BLOOD SPECIMEN [facility] Address: [address] [place] [address] Performed By: #### L [id number] #### [facility] CLIA [id number] [address] [place] Platelets (Bld) [#/Vol] 245 10*3/uL Normal 150-400 [facility] Comment on above: Order Comment: Speci men Type: BLOOD SPECIMEN [facility] Address: [address] [place] [address] Performed By: #### L [id number] #### [facility] CLIA [id number] [address] [place] RBC (Bld) [#/Vol] 4.26 10*6/uL Normal 4.20-6.00 [facility] Comment on above: Order Comment: Speci men Type: BLOOD SPECIMEN [facility] Address: [address] [place] [address] Performed By: #### L [id number] #### [facility] CLIA [id number] [address] WBC (Bld) [#/Vol] 12.00 10*3/uL High 3.70-11.00 [facility] Comment on above: Order Comment: Speci men Type: BLOOD SPECIMEN [facility] Address: [address] [place] [address] Performed By: #### L [id number] #### [facility] CLIA [id number] [address] Comprehensive metabolic 2000 panelon 11-15-2023 Albumin [Mass/Vol] 3.6 g/dL Low 3.9-4.9 [facility] Comment on above: Order Comment: Speci men Type: BLOOD SPECIMEN [facility] Address: [address] [place] [address] Performed By: #### 3 3762-6, 31021-3 #### [facility] CLIA [id number] [address] ALP [Catalytic activity/Vol] 76 U/L Normal 38-113 [facility] Comment on above: Order Comment: Speci men Type: BLOOD SPECIMEN [facility] Address: [address] [place] [address] Performed By: #### 3 3762-6, 33944-2 #### [facility] CLIA [id number] [address] ALT With P-5'-P [Catalytic activity/Vol] 24 U/L Normal 10-54 [facility] Comment on above: Order Comment: Speci men Type: BLOOD SPECIMEN [facility] Address: [address] [place] [address] Performed By: #### 3 3762-6, 56563-5 #### [facility] CLIA [id number] [address] OF [facility] Anion gap [Moles/Vol] 4 mmol/L Low 9-18 [facility] Comment on above: Order Comment: Speci men Type: BLOOD SPECIMEN [facility] Address: [address] [place] [address] Performed By: #### 3 3762-6, 89352-4 #### [facility] CLIA [id number] [address] [place] AST With P-5'-P [Catalytic activity/Vol] 16 U/L Normal 14-40 [facility] Comment on above: Order Comment: Speci men Type: BLOOD SPECIMEN [facility] Address: [address] [place] [address] Performed By: #### 3 3762-6, 99724-2 #### [facility] CLIA [id number] [address] STATES OF [facility] Bilirubin [Mass/Vol] 0.2 mg/dL Normal 0.2-1.3 [facility] Comment on above: Order Comment: Speci men Type: BLOOD SPECIMEN [facility] Address: [address] [place] [address] Performed By: #### 3 3762-6, 53770-5 #### [facility] CLIA [id number] [address] OF [facility] Calcium [Mass/Vol] 8.7 mg/dL Normal 8.5-10.2 [facility] Comment on above: Order Comment: Speci men Type: BLOOD SPECIMEN [facility] Address: [address] [place] [address] Performed By: #### 3 3762-6, 10571-0 #### [facility] CLIA [id number] [address] [place] Chloride [Moles/Vol] 91 mmol/L Low 97-105 [facility] Comment on above: Order Comment: Speci men Type: BLOOD SPECIMEN [facility] Address: [address] [place] [address] Performed By: #### 3 3762-6, 99286-7 #### [facility] CLIA [id number] 1 [place] [address] [place] CO2 [Moles/Vol] 41 mmol/L High 22-30 [facility] Comment on above: Order Comment: Speci men Type: BLOOD SPECIMEN [facility] Address: [address] [place] [address] Performed By: #### 3 3762-6, 41338-5 #### [facility] CLIA [id number] [address] [place] Creatinine [Mass/Vol] 0.68 mg/dL Low 0.73-1.22 [facility] Comment on above: Order Comment: Speci men Type: BLOOD SPECIMEN [facility] Address: [address] [place] [address] Performed By: #### 3 3762-6, 05852-1 #### [facility] CLIA [id number] [address] Creatinine and Glomerular filtration rate.predicted panel (S/P/Bld) 112 mL/min/1.73m??? Normal >=60 [facility] Comment on above: Order Comment: Speci men Type: BLOOD SPECIMEN [facility] Address: [address] [place] [address] Result Comment: Ingrid mated Glomerular Filtration Rate [...] actual GFR. Performed By: #### 3 3762-6, 74356-9 #### [facility] CLIA [id number] [address] [place] Glucose [Mass/Vol] 105 mg/dL High 74-99 [facility] Comment on above: Order Comment: Speci men Type: BLOOD SPECIMEN [facility] Address: [address] [place] [address] Result Comment: The [place] [employer] (ADA) provides guidance for cutoff [...] Standards of Medical Care in Diabetes 2016, [place] [employer]. Diabetes Care. 2016.39(Suppl 1). Performed By: #### 3 3762-6, 80657-2 #### [facility] CLIA [id number] [address] [place] [address] [place] Potassium [Moles/Vol] 4.2 mmol/L Normal 3.7-5.1 [facility] Comment on above: Order Comment: Meng blancas Type: BLOOD SPECIMEN [facility] Address: [address] [place] [address] Performed By: #### 3 3762-6, 04318-9 #### [employer] [facility] CLIA [id number] [address] [place] [address] [place] Protein [Mass/Vol] 5.9 g/dL Low 6.3-8.0 [facility] Comment on above: Order Comment: Meng blancas Type: BLOOD SPECIMEN [facility] Address: [address] [place] [address] Performed By: #### 3 3762-6, 22623-4 #### [facility] CLIA [id number] 1 [place] [address] [place] Sodium [Moles/Vol] 136 mmol/L Normal 136-144 [facility] Comment on above: Order Comment: Meng blancas Type: BLOOD SPECIMEN [facility] Address: [address] [place] [address] Performed By: #### 3 3762-6, 01200-3 #### [facility] CLIA [id number] 1 [place] [id number] [place] Urea nitrogen [Mass/Vol] 29 mg/dL High 9-24 [facility] Comment on above: Order Comment: Speci men Type: BLOOD SPECIMEN [facility] Address: [facility] [place] [address] Performed By: #### 3 3762-6, 36770-3 #### [facility] CLIA [id number] [address] [place] [id number] [place] ALLIED HEALTHon 11-14-2023 ALLIED HEALTH HNO ID: [id number] Author: Ziyad Keys II Service: Infection Prevention Author Type: ? Type: Allied Health Filed: 11/14/2023 9:52 AM Note Text: ISOLATION NOTE Admission Date: 11/13/2023 Type of Isolation Recommended: Contact Precautions (Sampson Isolation Sign) Indication: Respiratory syncytial virus (RSV) Date Isolation Initiated: 11/14/2023 Anticipated Duration of Isolation: Duration of illness Type and Date of Positive Test(s): Positive upper respiratory tract swab collected 11/13/2023 SIGNATURE: Ziyad Keys II PATIENT NAME: Javier Dickson DATE: November 14, 2023 TIME: 9:50 AM PAGER/CONTACT #: Infection Prevention, [id number] Infection Prevention after hours/weekend pager: [phone] Normal [facility] CASE MANAGEMon 11-14-2023 CASE MANAGEM HNO ID: [id number] Author: Karla Gonzales LSW Service: ? Author Type: Dockworker Type: Care Mgt Progress Note Filed: 11/14/2023 [...] 14, 2023 TIME: 2:03 PM PAGER/CONTACT #: [phone] Normal [facility] CASE MANAGEM HNO ID: [id number] Author: Karla Gonzales LSW Service: ? Author Type: Dockworker Type: Care Mgt Progress Note Filed: 11/14/2023 [...] 14, 2023 TIME: 1:57 PM PAGER/CONTACT #: [phone] Normal [facility] CBC W Auto Differential pane l (Bld)on 11-14-2023 Basophils (Bld) [#/Vol] 10*3/uL Normal <0.11 [facility] Comment on above: Order Comment: Speci men Type: BLOOD SPECIMEN [facility] Address: [address] [place] [address] Performed By: #### 3 3762-6, 89079-0 #### [facility] CLIA [id number] [address] [place] Basophils/100 WBC (Bld) 0.1 % Normal [facility] Comment on above: Order Comment: Speci men Type: BLOOD SPECIMEN [facility] Address: [address] [place] [address] Performed By: #### 3 3762-6, 40074-5 #### [facility] CLIA [id number] [address] [place] [address] Differential cell count method Nom (Bld) Auto Normal [facility] Comment on above: Order Comment: Speci men Type: BLOOD SPECIMEN [facility] Address: [address] [place] [address] Performed By: #### 3 376-6, 09311-1 #### [facility] CLIA [id number] [address] [place] Eosinophils (Bld) [#/Vol] 10*3/uL Normal <0.46 [facility] Comment on above: Order Comment: Speci men Type: BLOOD SPECIMEN Ordering Facility: [facility] Address: [address] [place] [address] Performed By: #### 3 3766, 18390-5 #### [facility] CLIA [id number] [address] Eosinophils/100 WBC (Bld) 0.1 % Normal [facility] Comment on above: Order Comment: Speci men Type: BLOOD SPECIMEN Ordering Facility: [facility] Address: [address] [place] [address] Performed By: #### 3 3766, 40052-3 #### [facility] CLIA [id number] [address] Erythrocyte distribution width (RBC) [Ratio] 12.7 % Normal 11.5-15.0 [facility] Comment on above: Order Comment: Speci men Type: BLOOD SPECIMEN Ordering Facility: [facility] Address: [address] [place] [address] Performed By: #### 3 3762-6, 10073-5 #### [facility] CLIA [id number] [address] Hematocrit (Bld) [Volume fraction] 45.7 % Normal 39.0-51.0 [facility] Comment on above: Order Comment: Speci men Type: BLOOD SPECIMEN Ordering Facility: [facility] Address: [address] [place] [address] Performed By: #### 3 376-6, 49183-0 #### [facility] CLIA [id number] [address] [place] Hemoglobin (Bld) [Mass/Vol] 14.5 g/dL Normal 13.0-17.0 [facility] Comment on above: Order Comment: Speci men Type: BLOOD SPECIMEN Ordering Facility: [facility] Address: [address] [place] [address] Performed By: #### 3 3762-6, 77157-9 #### [facility] CLIA [id number] [address] [place] Immature granulocytes (Bld) [#/Vol] 0.07 10*3/uL Normal <0.10 [facility] Comment on above: Order Comment: Speci men Type: BLOOD SPECIMEN Ordering Facility: [facility] Address: [address] [place] [address] Performed By: #### 3 376-6, 10619-8 #### [facility] CLIA [id number] [address] [place] Immature granulocytes/100 WBC (Bld) 0.4 % Normal [facility] Comment on above: Order Comment: Speci men Type: BLOOD SPECIMEN Ordering Facility: [facility] Address: [address] [place] [address] Performed By: #### 3 3762-6, 88625-1 #### [facility] CLIA [id number] 1 [place] [address] [place] Lymphocytes (Bld) [#/Vol] 0.61 10*3/uL Low 1.00-4.00 [facility] Comment on above: Order Comment: Speci men Type: BLOOD SPECIMEN Ordering Facility: [facility] Address: [address] [place] [address] Performed By: #### 3 3762-6, 88297-1 #### [facility] CLIA [id number] [address] [place] Lymphocytes/100 WBC (Bld) 3.9 % Normal [facility] Comment on above: Order Comment: Speci men Type: BLOOD SPECIMEN Ordering Facility: [facility] Address: [address] [place] [address] Performed By: #### 3 3762-6, 98701-6 #### [facility] CLIA [id number] [address] MCH (RBC) [Entitic mass] 30.9 pg Normal 26.0-34.0 [facility] Comment on above: Order Comment: Speci men Type: BLOOD SPECIMEN Ordering Facility: [facility] Address: [address] [place] [address] Performed By: #### 3 3762-6, 20384-3 #### [facility] CLIA [id number] [address] MCHC (RBC) [Mass/Vol] 31.7 g/dL Normal 30.5-36.0 [facility] Comment on above: Order Comment: Speci men Type: BLOOD SPECIMEN Ordering Facility: [facility] Address: [address] [place] [address] Performed By: #### 3 3762-6, 44967-8 #### [facility] CLIA [id number] [address] MCV (RBC) [Entitic vol] 97.4 fL Normal 80.0-100.0 [facility] Comment on above: Order Comment: Speci men Type: BLOOD SPECIMEN Ordering Facility: [facility] Address: [address] [place] [address] Performed By: #### 3 3762-6, 13632-5 #### [facility] CLIA [id number] [address] OF [facility] Monocytes (Bld) [#/Vol] 1.02 10*3/uL High <0.87 [facility] Comment on above: Order Comment: Speci men Type: BLOOD SPECIMEN Ordering Facility: [facility] Address: [address] [place] [address] Performed By: #### 3 3762-6, 69125-5 #### [facility] CLIA [id number] [address] [place] Monocytes/100 WBC (Bld) 6.5 % Normal [facility] Comment on above: Order Comment: Speci men Type: BLOOD SPECIMEN Ordering Facility: [facility] Address: [address] [place] [address] Performed By: #### 3 3762-6, 09917-4 #### [facility] CLIA [id number] [address] [place] Neutrophils (Bld) [#/Vol] 13.90 10*3/uL High 1.45-7.50 [facility] Comment on above: Order Comment: Speci men Type: BLOOD SPECIMEN Ordering Facility: [facility] Address: [address] [place] [address] Performed By: #### 3 3762-6, 38660-9 #### [facility] CLIA [id number] [address] OF [facility] Neutrophils/100 WBC (Bld) 89.0 % Normal [facility] Comment on above: Order Comment: Speci men Type: BLOOD SPECIMEN Ordering Facility: [facility] Address: [address] [place] [address] Performed By: #### 3 3762-6, 94802-3 #### [facility] CLIA [id number] [address] [place] Nucleated RBC (Bld) [#/Vol] 10*3/uL Normal <0.01 [facility] Comment on above: Order Comment: Speci men Type: BLOOD SPECIMEN Ordering Facility: [facility] Address: [address] [place] [address] Performed By: #### 3 3762-6, 92818-0 #### [facility] CLIA [id number] [address] [place] Nucleated RBC/100 WBC (Bld) [Ratio] 0.0 /100 WBC Normal [facility] Comment on above: Order Comment: Speci men Type: BLOOD SPECIMEN Ordering Facility: [facility] Address: [address] [place] [address] Performed By: #### 3 3762-6, 92570-0 #### [facility] CLIA [id number] [address] Platelet mean volume (Bld) [Entitic vol] 10.3 fL Normal 9.0-12.7 [facility] Comment on above: Order Comment: Speci men Type: BLOOD SPECIMEN Ordering Facility: [facility] Address: [address] [place] [address] Performed By: #### 3 3762-6, 36751-3 #### [facility] CLIA [id number] [address] Platelets (Bld) [#/Vol] 223 10*3/uL Normal 150-400 [facility] Comment on above: Order Comment: Speci men Type: BLOOD SPECIMEN Ordering Facility: [facility] Address: [address] [place] [address] Performed By: #### 3 3762-6, 33388-4 #### [facility] CLIA [id number] [address] [place] RBC (Bld) [#/Vol] 4.69 10*6/uL Normal 4.20-6.00 [facility] Comment on above: Order Comment: Speci men Type: BLOOD SPECIMEN Ordering Facility: [facility] Address: [address] [place] [address] Performed By: #### 3 3762-6, 18730-1 #### [facility] CLIA [id number] [address] [place] WBC (Bld) [#/Vol] 15.63 10*3/uL High 3.70-11.00 [facility] Comment on above: Order Comment: Speci men Type: BLOOD SPECIMEN Ordering Facility: [facility] Address: [address] [place] [address] Performed By: #### 3 3762-6, 76072-6 #### [facility] CLIA [id number] [address] STATES OF [facility] CONSULT PROGon 11-14-2023 CONSULT PROG HNO ID: [id number] Author: Jackie Paz RPh Service: Pharmacy Author [...] if there are questions. Jackie Paz RPh [phone] Normal [facility] Comprehensive metabolic 2000 panelon 11-14-2023 Albumin [Mass/Vol] 3.8 g/dL Low 3.9-4.9 [facility] Comment on above: Order Comment: Speci men Type: BLOOD SPECIMENOrdering Facility: [facility] Address: [address] [place] [address] Performed By: #### 2 4323-8 ####[facility] [id number] [address] [place] ALP [Catalytic activity/Vol] 90 U/L Normal 38-113 [facility] Comment on above: Order Comment: Speci men Type: BLOOD SPECIMENOrdering Facility: [facility] Address: [address] [place] [address] Performed By: #### 2 4323-8 ####[facility] [id number] [address] [place] ALT With P-5'-P [Catalytic activity/Vol] 31 U/L Normal 10-54 [facility] Comment on above: Order Comment: Speci men Type: BLOOD SPECIMENOrdering Facility: [facility] Address: [address] [place] [address] Performed By: #### 2 4323-8 ####[facility]IA [id number] [place] [address] [place] Anion gap [Moles/Vol] 9 mmol/L Normal 9-18 [facility] Comment on above: Order Comment: Speci men Type: BLOOD SPECIMENOrdering Facility: [facility] Address: [address] [place] [address] Performed By: #### 2 4323-8 ####[facility] [id number] [place] [address] [place] AST With P-5'-P [Catalytic activity/Vol] 23 U/L Normal 14-40 [facility] Comment on above: Order Comment: Speci men Type: BLOOD SPECIMENOrdering Facility: [facility] Address: [address] [place] [address] Performed By: #### 2 4323-8 ####[facility] [id number] [place] [address] [place] Bilirubin [Mass/Vol] 0.4 mg/dL Normal 0.2-1.3 [facility] Comment on above: Order Comment: Speci men Type: BLOOD SPECIMENOrdering Facility: [facility] Address: [address] [place] [address] Performed By: #### 2 4323-8 ####[facility] [id number] [address] [place] Calcium [Mass/Vol] 9.0 mg/dL Normal 8.5-10.2 [facility] Comment on above: Order Comment: Speci men Type: BLOOD SPECIMENOrdering Facility: [facility] Address: [address] [place] [address] Performed By: #### 2 4323-8 ####[facility] [id number] [place] [address] [place] Chloride [Moles/Vol] 91 mmol/L Low 97-105 [facility] Comment on above: Order Comment: Speci men Type: BLOOD SPECIMENOrdering Facility: [facility] Address: [address] [place] [address] Performed By: #### 2 4323-8 ####[facility] [id number] [address] [place] CO2 [Moles/Vol] 34 mmol/L High 22-30 [facility] Comment on above: Order Comment: Speci men Type: BLOOD SPECIMENOrdering Facility: [facility] Address: [address] [place] [address] Performed By: #### 2 4323-8 ####[facility] [id number] [address] STATES OF [facility] Creatinine [Mass/Vol] 1.41 mg/dL High 0.73-1.22 [facility] Comment on above: Order Comment: Speci men Type: BLOOD SPECIMENOrdering Facility: [facility] Address: [address] [place] [address] Performed By: #### 2 4323-8 ####[facility] [id number] [address] Creatinine and Glomerular filtration rate.predicted panel (S/P/Bld) 60 mL/min/1.73m??? Normal >=60 [facility] Comment on above: Order Comment: Speci men Type: BLOOD SPECIMENOrdering Facility: [facility] Address: [address] [place] [address] Result Comment: Ingrid mated Glomerular Filtration Rate [...] actual GFR. Performed By: #### 2 4323-8 ####[facility] [id number] [address] OF [facility] Glucose [Mass/Vol] 113 mg/dL High 74-99 [facility] Comment on above: Order Comment: Speci men Type: BLOOD SPECIMENOrdering Facility: [facility] Address: [address] [place] [address] Result Comment: The [place] [employer] (ADA) provides guidance for cutoff [...] Standards of Medical Care in Diabetes 2016, [place] [employer]. Diabetes Care. 2016.39(Suppl 1). Performed By: #### 2 4323-8 ####[facility]IA [id number] [place] [address] [place] Potassium [Moles/Vol] 4.7 mmol/L Normal 3.7-5.1 [facility] Comment on above: Order Comment: Speci men Type: BLOOD SPECIMENOrdering Facility: [facility] Address: [address] [place] [address] Performed By: #### 2 4323-8 ####[facility]IA [id number] [place] [address] [place] Protein [Mass/Vol] 6.6 g/dL Normal 6.3-8.0 [facility] Comment on above: Order Comment: Speci men Type: BLOOD SPECIMENOrdering Facility: [facility] Address: [address] [place] [address] Performed By: #### 2 4323-8 ####[facility]IA [id number] [place] [address] [place] Sodium [Moles/Vol] 134 mmol/L Low 136-144 [facility] Comment on above: Order Comment: Speci men Type: BLOOD SPECIMENOrdering Facility: [facility] Address: [address] [place] [address] Performed By: #### 2 4323-8 ####[facility]ORYCLIA [id number] [place] [address] [place] Urea nitrogen [Mass/Vol] 52 mg/dL High 9-24 [facility] Comment on above: Order Comment: Speci men Type: BLOOD SPECIMENOrdering Facility: [facility] Address: [place] [address] Performed By: #### 2 4323-8 ####[facility]ORYCLIA [id number] [place] [address] [place] ECHOon 11-14-2023 Echocardiography Echocardiography Report: Transthoracic Echo [facility] Date of service: 11/14/2023 9:09:04 AM HOSPITAL Ordering physician: JILL SHIN Indication: Initial evaluation of known cardiomyopathy Technologist: Lolyd Schmid [facility] Interpreting physician: Mark Morgan MD PATIENT: [...] * * Final * * * CC [employer] [facility] : [id number] Normal [facility] ED NOTEon 11-14-2023 ED NOTE HNO ID: [id number] Author: Nenita Hughes RN Service: Emergency Medicine Author Type: Registered Nurse Type: ED Notes Filed: 11/14/2023 2:18 AM Note Text: Dr Chen notified patient continuing to pull off the BiPAP mask requesting food and water stating "he has not eaten or had anything to drink in days". RT at bedside. Okay per ICU to give patient a couple of ice chips. Normal [facility] Gas and Carbon monoxide pane l (BldV)on 11-14-2023 Base excess Calc (BldV) [Moles/Vol] 7 mmol/L High 0-2 [facility] Comment on above: Order Comment: Speci men Type: VENOUS BLOOD SPECIMEN [facility] Address: [address] [place] [address] Performed By: #### 2 4344-4 #### [facility] CLIA [id number] [address] [place] [address] Body temperature 98.6 [degF] Normal [facility] Comment on above: Order Comment: Speci men Type: VENOUS BLOOD SPECIMEN [facility] Address: [address] [place] [address] Performed By: #### 2 4344-4 #### [facility] CLIA [id number] [address] [place] [address] OF [facility] Calcium.ionized (BldV) [Mass/Vol] 1.08 mmol/L Normal 1.08-1.30 [facility] Comment on above: Order Comment: Speci men Type: VENOUS BLOOD SPECIMEN [facility] Address: [address] [place] [address] Performed By: #### 2 4344-4 #### [facility] CLIA [id number] [address] [place] [address] OF [facility] Calcium.ionized adjusted to pH 7.4 (BldA) [Moles/Vol] 1.03 mmol/L Low 1.08-1.30 [facility] Comment on above: Order Comment: Speci men Type: VENOUS BLOOD SPECIMEN [facility] Address: [address] [place] [address] Performed By: #### 2 4344-4 #### [facility] CLIA [id number] [address] [place] Carboxyhemoglobin (BldV) [Mass fraction] 1.7 % Normal 0.0-2.0 [facility] Comment on above: Order Comment: Speci men Type: VENOUS BLOOD SPECIMEN [facility] Address: [address] [place] [address] Result Comment: Carb oxyhemoglobin Reference Range for Smokers: 2.0-8.0% Performed By: #### 2 4344-4 #### [facility] CLIA [id number] [address] [place] Chloride [Moles/Vol] 94 mmol/L Low 102-109 [facility] Comment on above: Order Comment: Speci men Type: VENOUS BLOOD SPECIMEN [facility] Address: [address] [place] [address] Performed By: #### 2 4344-4 #### [facility] CLIA [id number] [address] [place] CO2 (BldV) [Partial pressure] 72 mm[Hg] High 42-55 [facility] Comment on above: Order Comment: Speci men Type: VENOUS BLOOD SPECIMEN [facility] Address: [address] [place] [address] Performed By: #### 2 4344-4 #### [facility] CLIA [id number] [address] [place] FIO2 60 % Normal [facility] Comment on above: Order Comment: Speci men Type: VENOUS BLOOD SPECIMEN [facility] Address: [address] [place] [address] Performed By: #### 2 4344-4 #### [facility] CLIA [id number] [address] [place] Glucose [Mass/Vol] 117 mg/dL High 60-105 [facility] Comment on above: Order Comment: Speci men Type: VENOUS BLOOD SPECIMEN [facility] Address: [address] [place] [address] Performed By: #### 2 4344-4 #### [facility] CLIA [id number] [address] [place] HCO3 (Bld) [Moles/Vol] 36 mmol/L High 24-28 [facility] Comment on above: Order Comment: Speci men Type: VENOUS BLOOD SPECIMEN [facility] Address: [address] [place] [address] Performed By: #### 2 4344-4 #### [facility] CLIA [id number] [address] [place] Hematocrit (Bld) [Volume fraction] 44.1 % Normal 39.0-51.0 [facility] Comment on above: Order Comment: Speci men Type: VENOUS BLOOD SPECIMEN [facility] Address: [address] [place] [address] Performed By: #### 2 4344-4 #### [facility] CLIA [id number] [address] [place] Hemoglobin (Bld) [Mass/Vol] 14.4 g/dL Normal 13.0-17.0 [facility] Comment on above: Order Comment: Speci men Type: VENOUS BLOOD SPECIMEN [facility] Address: [address] [place] [address] Performed By: #### 2 4344-4 #### [facility] CLIA [id number] [address] [place] Lactate [Moles/Vol] 2.1 mmol/L Normal 0.5-2.2 [facility] Comment on above: Order Comment: Speci men Type: VENOUS BLOOD SPECIMEN [facility] Address: [address] [place] [address] Performed By: #### 2 4344-4 #### [facility] CLIA [id number] [address] [place] L[place] 60 Liters/min Normal [facility] Comment on above: Order Comment: Speci men Type: VENOUS BLOOD SPECIMEN [facility] Address: [address] [place] [address] Performed By: #### 2 4344-4 #### [facility] CLIA [id number] [address] [place] Methemoglobin (Bld) [Mass fraction] 0.1 % Normal 0.0-1.5 [facility] Comment on above: Order Comment: Speci men Type: VENOUS BLOOD SPECIMEN [facility] Address: [address] [place] [address] Performed By: #### 2 4344-4 #### [facility] CLIA [id number] [address] [place] O2 THERAPY Hi-Flow Nasal Cannula-Heated Normal [facility] Comment on above: Order Comment: Speci men Type: VENOUS BLOOD SPECIMEN [facility] Address: [address] [place] [address] Performed By: #### 2 4344-4 #### [facility] CLIA [id number] [address] [place] Oxygen (BldV) [Partial pressure] 63 mm[Hg] High 35-45 [facility] Comment on above: Order Comment: Speci men Type: VENOUS BLOOD SPECIMEN [facility] Address: [address] [place] [address] Performed By: #### 2 4344-4 #### [facility] CLIA [id number] [address] Oxygen saturation in Venous blood 89 % High 60-85 [facility] Comment on above: Order Comment: Speci men Type: VENOUS BLOOD SPECIMEN [facility] Address: [address] [place] [address] Performed By: #### 2 4344-4 #### [facility] CLIA [id number] [address] [place] Oxyhemoglobin (BldV) [Mass fraction] 88 % High 60-85 [facility] Comment on above: Order Comment: Speci men Type: VENOUS BLOOD SPECIMEN [facility] Address: [address] [place] [address] Performed By: #### 2 4344-4 #### [facility] CLIA [id number] [address] [place] [address] [place] pH (BldV) 7.32 [pH] Normal 7.32-7.42 [facility] Comment on above: Order Comment: Speci men Type: VENOUS BLOOD SPECIMEN [facility] Address: [address] [place] [address] Performed By: #### 2 4344-4 #### [facility] CLIA [id number] [address] [place] Potassium [Moles/Vol] 4.4 mmol/L Normal 3.5-5.0 [facility] Comment on above: Order Comment: Speci men Type: VENOUS BLOOD SPECIMEN [facility] Address: [address] [place] [address] Performed By: #### 2 4344-4 #### [facility] CLIA [id number] [address] [place] Sodium [Moles/Vol] 132 mmol/L Low 136-144 [facility] Comment on above: Order Comment: Speci men Type: VENOUS BLOOD SPECIMEN [facility] Address: [address] [place] [address] Performed By: #### 2 4344-4 #### [facility] CLIA [id number] [address] [place] [address] [place] Legionella Ag Ur Qlon 2023 Legionella sp Ag Ql (U) Negative Normal Negative [facility] Comment on above: Order Comment: Speci men Type: BLOOD SPECIMEN [facility] Address: [address] [place] [address] Result Comment: Pres umptive negative for L. [...] the test. Performed By: #### 3 3762-6, 31773-1 #### [facility] CLIA [id number] [address] [place] STREPTOCOCCUS PNEUMONIAE AGo n 11-14-2023 STREPTOCOCCUS PNEUMONIAE AG STREP PNEUMO AG RESULT: Negative for Streptococcus pneumoniae antigen. Presumptive negative for pneumococcal pneumonia, suggesting no current or recent pneumococcal infection. Infection due to S.pneumoniae cannot be ruled out since the antigen present in the sample may be below the detection limit of the test. Normal [facility] Comment on above: Performed By: #### L [id number] #### [facility] CLIA [id number] [address] [place] Basic metabolic 2000 panelon 11-13-2023 Anion gap [Moles/Vol] 12 mmol/L Normal 9-18 [facility] Comment on above: Order Comment: Speci men Type: BLOOD SPECIMEN [facility] Address: [address] [place] [address] Performed By: #### 2 4321-2 #### [facility] CLIA [id number] [address] [place] [address] [place] Calcium [Mass/Vol] 8.0 mg/dL Low 8.5-10.2 [facility] Comment on above: Order Comment: Speci men Type: BLOOD SPECIMEN [facility] Address: [address] [place] [address] Performed By: #### 2 4321-2 #### [facility] CLIA [id number] [address] [place] Chloride [Moles/Vol] 95 mmol/L Low 97-105 [facility] Comment on above: Order Comment: Speci men Type: BLOOD SPECIMEN Ordering Facility: [facility] Address: [address] [place] [address] Performed By: #### 2 4321-2 #### [facility] CLIA [id number] [address] [place] CO2 [Moles/Vol] 28 mmol/L Normal 22-30 [facility] Comment on above: Order Comment: Speci men Type: BLOOD SPECIMEN Ordering Facility: [facility] Address: [address] [place] [address] Performed By: #### 2 4321-2 #### [facility] CLIA [id number] [address] STATES OF [facility] Creatinine [Mass/Vol] 0.90 mg/dL Normal 0.73-1.22 [facility] Comment on above: Order Comment: Speci men Type: BLOOD SPECIMEN Ordering Facility: [facility] Address: [address] [place] [address] Performed By: #### 2 4321-2 #### [facility] CLIA [id number] [address] Creatinine and Glomerular filtration rate.predicted panel (S/P/Bld) 103 mL/min/1.73m??? Normal >=60 [facility] Comment on above: Order Comment: Speci men Type: BLOOD SPECIMEN Ordering Facility: [facility] Address: [address] [place] [address] Result Comment: Ingrid mated Glomerular Filtration Rate [...] GFR. Performed By: #### 2 4321-2 #### [facility] CLIA [id number] [address] [place] [address] [place] Glucose [Mass/Vol] 104 mg/dL High 74-99 [facility] Comment on above: Order Comment: Speci men Type: BLOOD SPECIMEN Ordering Facility: [facility] Address: [address] [place] [address] Result Comment: The [place] Diabetes Association (ADA) provides guidance for cutoff [...] Standards of Medical Care in Diabetes 2016, [place] [employer]. Diabetes Care. 2016.39(Suppl 1). Performed By: #### 2 4321-2 #### [facility] CLIA [id number] [address] STATES OF [facility] Potassium [Moles/Vol] 4.7 mmol/L Normal 3.7-5.1 [facility] Comment on above: Order Comment: Meng blancas Type: BLOOD SPECIMEN Ordering Facility: [facility] Address: [address] [place] [address] Performed By: #### 2 4321-2 #### [facility] CLIA [id number] [address] Sodium [Moles/Vol] 135 mmol/L Low 136-144 [facility] Comment on above: Order Comment: Meng blancas Type: BLOOD SPECIMEN Ordering Facility: [facility] Address: [address] [place] [address] Performed By: #### 2 4321-2 #### [facility] CLIA [id number] [address] Urea nitrogen [Mass/Vol] 35 mg/dL High 9-24 [facility] Comment on above: Order Comment: Meng blancas Type: BLOOD SPECIMEN Ordering Facility: [facility] Address: [address] [place] [address] Performed By: #### 2 4321-2 #### [facility] CLIA [id number] [address] [place] CBC W Auto Differential pane l (Bld)on 11-13-2023 Basophils (Bld) [#/Vol] 0.04 10*3/uL Normal <0.11 [facility] Comment on above: Order Comment: Meng blancas Type: BLOOD SPECIMEN Ordering Facility: [facility] Address: [address] [place] [address] Performed By: #### 3 3762-6, 01934-7 #### [facility] CLIA [id number] [address] [place] Basophils/100 WBC (Bld) 0.3 % Normal [facility] Comment on above: Order Comment: Speci men Type: BLOOD SPECIMEN Ordering Facility: [facility] Address: [address] [place] [address] Performed By: #### 3 3762-6, 47339-8 #### [facility] CLIA [id number] [address] [place] Differential cell count method Nom (Bld) Auto Normal [facility] Comment on above: Order Comment: Speci men Type: BLOOD SPECIMEN Ordering Facility: [facility] Address: [address] [place] [address] Performed By: #### 3 3762-6, 90161-5 #### [facility] CLIA [id number] [address] [place] Eosinophils (Bld) [#/Vol] 10*3/uL Normal <0.46 [facility] Comment on above: Order Comment: Speci men Type: BLOOD SPECIMEN Ordering Facility: [facility] Address: [address] [place] [address] Performed By: #### 3 3762-6, 65870-3 #### [facility] CLIA [id number] [address] Eosinophils/100 WBC (Bld) 0.0 % Normal [facility] Comment on above: Order Comment: Speci men Type: BLOOD SPECIMEN Ordering Facility: [facility] Address: [address] [place] [address] Performed By: #### 3 3762-6, 68748-8 #### [facility] CLIA [id number] [address] [place] Erythrocyte distribution width (RBC) [Ratio] 12.7 % Normal 11.5-15.0 [facility] Comment on above: Order Comment: Speci men Type: BLOOD SPECIMEN Ordering Facility: [facility] Address: [address] [place] [address] Performed By: #### 3 376-6, 76194-4 #### [facility] CLIA [id number] [address] [place] Hematocrit (Bld) [Volume fraction] 52.4 % High 39.0-51.0 [facility] Comment on above: Order Comment: Speci men Type: BLOOD SPECIMEN Ordering Facility: [facility] Address: [address] [place] [address] Performed By: #### 3 3766, 44808-9 #### [facility] CLIA [id number] [address] [place] Hemoglobin (Bld) [Mass/Vol] 16.6 g/dL Normal 13.0-17.0 [facility] Comment on above: Order Comment: Speci men Type: BLOOD SPECIMEN Ordering Facility: [facility] Address: [address] [place] [address] Performed By: #### 3 3766, 79745-9 #### [facility] CLIA [id number] [address] [place] Immature granulocytes (Bld) [#/Vol] 0.09 10*3/uL Normal <0.10 [facility] Comment on above: Order Comment: Speci men Type: BLOOD SPECIMEN Ordering Facility: [facility] Address: [address] [place] [address] Performed By: #### 3 3766, 80020-2 #### [facility] CLIA [id number] [address] [place] Immature granulocytes/100 WBC (Bld) 0.6 % Normal [facility] Comment on above: Order Comment: Speci men Type: BLOOD SPECIMEN Ordering Facility: [facility] Address: [address] [place] [address] Performed By: #### 3 376-6, 08355-8 #### [facility] CLIA [id number] [address] [place] Lymphocytes (Bld) [#/Vol] 0.82 10*3/uL Low 1.00-4.00 [facility] Comment on above: Order Comment: Speci men Type: BLOOD SPECIMEN Ordering Facility: [facility] Address: [address] [place] [address] Performed By: #### 3 3762-6, 18174-4 #### [facility] CLIA [id number] [address] Lymphocytes/100 WBC (Bld) 5.6 % Normal [facility] Comment on above: Order Comment: Speci men Type: BLOOD SPECIMEN Ordering Facility: [facility] Address: [address] [place] [address] Performed By: #### 3 3762-6, 82282-1 #### [facility] CLIA [id number] [address] MCH (RBC) [Entitic mass] 31.2 pg Normal 26.0-34.0 [facility] Comment on above: Order Comment: Speci men Type: BLOOD SPECIMEN Ordering Facility: [facility] Address: [address] [place] [address] Performed By: #### 3 3762-6, 79075-2 #### [facility] CLIA [id number] [address] MCHC (RBC) [Mass/Vol] 31.7 g/dL Normal 30.5-36.0 [facility] Comment on above: Order Comment: Speci men Type: BLOOD SPECIMEN Ordering Facility: [facility] Address: [address] [place] [address] Performed By: #### 3 3762-6, 47182-6 #### [facility] CLIA [id number] [address] MCV (RBC) [Entitic vol] 98.5 fL Normal 80.0-100.0 [facility] Comment on above: Order Comment: Speci men Type: BLOOD SPECIMEN Ordering Facility: [facility] Address: [address] [place] [address] Performed By: #### 3 3762-6, 38354-7 #### [facility] CLIA [id number] [address] [place] Monocytes (Bld) [#/Vol] 1.22 10*3/uL High <0.87 [facility] Comment on above: Order Comment: Speci men Type: BLOOD SPECIMEN Ordering Facility: [facility] Address: [address] [place] [address] Performed By: #### 3 376-6, 61470-7 #### [facility] CLIA [id number] [address] [place] Monocytes/100 WBC (Bld) 8.4 % Normal [facility] Comment on above: Order Comment: Speci men Type: BLOOD SPECIMEN Ordering Facility: [facility] Address: [address] [place] [address] Performed By: #### 3 3766, 67282-8 #### [facility] CLIA [id number] [address] [place] Neutrophils (Bld) [#/Vol] 12.39 10*3/uL High 1.45-7.50 [facility] Comment on above: Order Comment: Speci men Type: BLOOD SPECIMEN Ordering Facility: [facility] Address: [address] [place] [address] Performed By: #### 3 3762-6, 51696-2 #### [facility] CLIA [id number] [address] [place] Neutrophils/100 WBC (Bld) 85.1 % Normal [facility] Comment on above: Order Comment: Speci men Type: BLOOD SPECIMEN Ordering Facility: [facility] Address: [address] [place] [address] Performed By: #### 3 3762-6, 60607-9 #### [facility] CLIA [id number] 1 [place] [address] [place] Nucleated RBC (Bld) [#/Vol] 10*3/uL Normal <0.01 [facility] Comment on above: Order Comment: Speci men Type: BLOOD SPECIMEN Ordering Facility: [facility] Address: [address] [place] [address] Performed By: #### 3 3762-6, 34202-3 #### [facility] CLIA [id number] [address] Nucleated RBC/100 WBC (Bld) [Ratio] 0.0 /100 WBC Normal [facility] Comment on above: Order Comment: Speci men Type: BLOOD SPECIMEN Ordering Facility: [facility] Address: [address] [place] [address] Performed By: #### 3 3762-6, 76492-7 #### [facility] CLIA [id number] [address] [place] Platelet mean volume (Bld) [Entitic vol] 9.8 fL Normal 9.0-12.7 [facility] Comment on above: Order Comment: Speci men Type: BLOOD SPECIMEN Ordering Facility: [facility] Address: [address] [place] [address] Performed By: #### 3 3762-6, 83554-9 #### [facility] CLIA [id number] [address] [place] Platelets (Bld) [#/Vol] 262 10*3/uL Normal 150-400 [facility] Comment on above: Order Comment: Speci men Type: BLOOD SPECIMEN Ordering Facility: [facility] Address: [address] [place] [address] Performed By: #### 3 3762-6, 42078-5 #### [facility] CLIA [id number] [address] [place] RBC (Bld) [#/Vol] 5.32 10*6/uL Normal 4.20-6.00 [facility] Comment on above: Order Comment: Speci men Type: BLOOD SPECIMEN Order[facility] Facility: [facility] Address: [address] [place] [address] Performed By: #### 3 3762-6, 27656-5 #### [facility] CLIA [id number] 1 [place] [address] [place] WBC (Bld) [#/Vol] 14.56 10*3/uL High 3.70-11.00 [facility] Comment on above: Order Comment: Speci men Type: BLOOD SPECIMEN Ordering Facility: [facility] Address: [facility] [place] [address] Performed By: #### 3 3762-6, 92289-4 #### [facility] CLIA [id number] 1 [place] [address] [facility] CONSULT PROGon 11-13-2023 CONSULT PROG HNO ID: [id number] Author: Daxa Gómez RPh Service: Pharmacy Author [...] questions, please [place] [phone]. Age: [age] year old Allergies: ALLERGIES No [...] results found for: GISELLA Gómez, [facility] Normal [facility] Comprehensive metabolic 2000 panelon 11-13-2023 Albumin [Mass/Vol] 4.4 g/dL Normal 3.9-4.9 [facility] Comment on above: Order Comment: Speci men Type: BLOOD SPECIMENOrdering Facility: [facility] Address: [address] [place] [address] Performed By: #### 3 3762-6, 74133-2 ####[facility] [id number] [address] [place] ALP [Catalytic activity/Vol] 114 U/L High 38-113 [facility] Comment on above: Order Comment: Speci men Type: BLOOD SPECIMENOrdering Facility: [facility] Address: [address] [place] [address] Performed By: #### 3 3762-6, 42072-3 ####[facility]IA [id number] [place] [address] [place] ALT With P-5'-P [Catalytic activity/Vol] 46 U/L Normal 10-54 [facility] Comment on above: Order Comment: Speci men Type: BLOOD SPECIMENOrdering Facility: [facility] Address: [address] [place] [address] Performed By: #### 3 3762-6, ####[facility] [id number] [place] [address] [place] Anion gap [Moles/Vol] 14 mmol/L Normal 9-18 [facility] Comment on above: Order Comment: Speci men Type: BLOOD SPECIMENOrdering Facility: [facility] Address: [address] [place] [address] Performed By: #### 3 3762-6, ####[facility] [id number] [place] [address] [place] AST With P-5'-P [Catalytic activity/Vol] 42 U/L High 14-40 [facility] Comment on above: Order Comment: Speci men Type: BLOOD SPECIMENOrdering Facility: [facility] Address: [address] [place] [address] Performed By: #### 3 3762-6, ####[facility]IA [id number] [place] [address] [place] Bilirubin [Mass/Vol] 0.5 mg/dL Normal 0.2-1.3 [facility] Comment on above: Order Comment: Speci men Type: BLOOD SPECIMENOrdering Facility: [facility] Address: [address] [place] [address] Performed By: #### 3 3762-6, ####[facility]IA [id number] [place] [address] [place] Calcium [Mass/Vol] 9.1 mg/dL Normal 8.5-10.2 [facility] Comment on above: Order Comment: Speci men Type: BLOOD SPECIMENOrdering Facility: [facility] Address: [address] [place] [address] Performed By: #### 3 3762-6, 39324-2 ####[facility]IA [id number] [address] OF [facility] Chloride [Moles/Vol] 92 mmol/L Low 97-105 [facility] Comment on above: Order Comment: Speci men Type: BLOOD SPECIMENOrdering Facility: [facility] Address: [address] [place] [address] Performed By: #### 3 3762-6, 75395-7 ####[facility]IA [id number] [address] OF [facility] CO2 [Moles/Vol] 31 mmol/L High 22-30 [facility] Comment on above: Order Comment: Speci men Type: BLOOD SPECIMENOrdering Facility: [facility] Address: [address] [place] [address] Performed By: #### 3 3762-6, 51713-4 ####[facility]IA [id number] [address] Creatinine [Mass/Vol] 1.15 mg/dL Normal 0.73-1.22 [facility] Comment on above: Order Comment: Speci men Type: BLOOD SPECIMENOrdering Facility: [facility] Address: [address] [place] [address] Performed By: #### 3 3762-6, 84379-2 ####[facility] [id number] [address] Creatinine and Glomerular filtration rate.predicted panel (S/P/Bld) 77 mL/min/1.73m??? Normal >=60 [facility] Comment on above: Order Comment: Speci men Type: BLOOD SPECIMENOrdering Facility: [facility] Address: [address] [place] [address] Result Comment: Ingrid mated Glomerular Filtration Rate [...] actual GFR. Performed By: #### 3 3762-6, 49108-1 ####[facility]IA [id number] [place] [address] [place] Glucose [Mass/Vol] 134 mg/dL High 74-99 [facility] Comment on above: Order Comment: Meng blancas Type: BLOOD SPECIMENOrdering Facility: [facility] Address: [address] [place] [address] Result Comment: The [place] Diabetes Association (ADA) provides guidance for cutoff [...] Standards of Medical Care in Diabetes 2016, [place] [employer]. Diabetes Care. 2016.39(Suppl 1). Performed By: #### 3 3762-6, 11947-5 ####[facility]IA [id number] [place] [address] [place] Potassium [Moles/Vol] 4.6 mmol/L Normal 3.7-5.1 [facility] Comment on above: Order Comment: Meng blancas Type: BLOOD SPECIMENOrdering Facility: [facility] Address: [address] [id number] Performed By: #### 3 3762-6, 61999-2 ####[facility]IA [id number] [place] [address] [place] Protein [Mass/Vol] 7.8 g/dL Normal 6.3-8.0 [facility] Comment on above: Order Comment: Meng blancas Type: BLOOD SPECIMENOrdering Facility: [facility] Address: [address] [place] [address] Performed By: #### 3 3762-6, 12841-8 ####[facility]ORYCLIA [id number] [place] [address] [place] [facility] Sodium [Moles/Vol] 137 mmol/L Normal 136-144 [facility] Comment on above: Order Comment: Speci men Type: BLOOD SPECIMENOrdering Facility: [facility] Address: [address] [place] [address] Performed By: #### 3 3762-6, 33488-7 ####[facility]ORYCLIA [id number] [place] [id number] [place] Urea nitrogen [Mass/Vol] 31 mg/dL High 9-24 [facility] Comment on above: Order Comment: Speci men Type: BLOOD SPECIMENOrdering Facility: [facility] Address: [address] [place] [address] Performed By: #### 3 3762-6, 14604-4 ####[facility]ORYCLIA [id number] [address] OF [facility] ECG COMPLETEon 11-13-2023 ECG COMPLETE Ventricular Rate : 1 03 BPM Atrial Rate : 103 BPM P-R Interval : 140 ms QRS Duration : 88 ms Q-T Interval : 358 ms QTC Calculation(Bazett) : 468 ms Calculated P [place] : 76 degrees Calculated R [place] : -77 degrees Calculated T [place] : 71 degrees SINUS TACHYCARDIA WITH FUSION COMPLEXES PULMONARY DISEASE PATTERN LEFT ANTERIOR FASCICULAR BLOCK INFERIOR INFARCT , AGE UNDETERMINED ABNORMAL ECG NO PREVIOUS ECGS AVAILABLE Confirmed by MD ERVIN THOMAS ([id number]) on 11/27/2023 9:05:12 PM NAME : JAVIER DICKSON PID : [id number] : 1970 Gender : Male Race : ORD : [id number] Procedure Date : Nov 13 2023 05:11:14 Edit Date : Nov 27 2023 21:05:13 Diagnosis: SINUS TACHYCARDIA WITH FUSION COMPLEXES PULMONARY DISEASE PATTERN LEFT ANTERIOR FASCICULAR BLOCK INFERIOR INFARCT , AGE UNDETERMINED ABNORMAL ECG NO PREVIOUS ECGS AVAILABLE Confirmed by MD ERVIN THOMAS ([id number]) on 11/27/2023 9:05:12 PM Test Reason : Chest Pain Location : 4 : AKED 29 Overread By : MD ERVIN THOMAS Edited By : MD ERVIN THOMAS Referred By : , Acquired by : JARET TALAMANTES [facility] ED NOTEon 11-13-2023 ED NOTE HNO ID: [id number] Author: Kenan Smiley RN Service: Emergency Medicine Author Type: Registered Nurse Type: ED Notes Filed: 11/13/2023 5:07 PM Note Text: Dr Varma notified of pt's last VBG results. [facility] ED NOTE HNO ID: [id number] Author: Kenan Smiley RN Service: Emergency Medicine Author Type: Registered Nurse Type: ED Notes Filed: 11/13/2023 3:14 PM Note Text: Pt assisted with urinal, tolerated well. Pt insisted upon standing. This RN stood by for pt safety. [facility] ED NOTE HNO ID: [id number] Author: Brendan Loja RN Service: Emergency Medicine Author Type: Registered Nurse Type: ED Notes Filed: 11/13/2023 7:03 AM Note Text: Report given to kenan SPAIN [facility] ED NOTE HNO ID: [id number] Author: Jaret Talamantes RN Service: Emergency Medicine Author Type: Registered Nurse Type: ED Notes Filed: 11/13/2023 6:22 AM Note Text: This RN remained at bedside w patient while BiPap was placed, pt initially fighting trying to pull mask off. Given blankets and encouraged to relax. Report given to Ben SPAIN. [facility] ED NOTE HNO ID: [id number] Author: Brendan Loja, JUDIT Service: Emergency Medicine Author Type: Registered Nurse Type: ED Notes Filed: 11/13/2023 6:16 AM Note Text: Pt moved to ed room 3. Xray bedside. Pt on continuous cardiac and spo2% monitoring. Awaiting report from current primary nurse [facility] ED NOTE HNO ID: [id number] Author: Jaret Talamantes RN Service: Emergency Medicine Author Type: Registered Nurse Type: ED Notes Filed: 11/13/2023 6:02 AM Note Text: XR called for portable [facility] ED NOTE HNO ID: [id number] Author: Albin, Jaret E, RN Service: Emergency Medicine Author Type: Registered Nurse Type: ED Notes Filed: 11/13/2023 6:02 AM Note Text: RTs at bedside notified RN that pt was less responsive and belly breathing. Dr. Weller and Vinnie to bedside Pt responds to loud verbal / painful stimuli with rambling incoherent words. [facility] ED NOTE HNO ID: [id number] Author: Jaret Talamantes RN Service: Emergency Medicine Author Type: Registered Nurse Type: ED Notes Filed: 11/13/2023 5:40 AM Note Text: Dr Weller and Alejandrina at bedside for USIV access [facility] ED NOTE HNO ID: [id number] Author: Jaret Talamantes RN Service: Emergency Medicine Author Type: Registered Nurse Type: ED Notes Filed: 11/13/2023 5:29 AM Note Text: RT notified for treaments [facility] ED NOTE HNO ID: [id number] Author: Jaret Talamantes RN Service: Emergency Medicine Author Type: Registered Nurse Type: ED Notes Filed: 11/13/2023 5:25 AM Note Text: IV access attempted x3 RNs x4 total unsuccessfully. Provider notified for USI [facility] ED NOTE HNO ID: [id number] Author: Jaret Talamantes RN Service: Emergency Medicine Author Type: Registered Nurse Type: ED Notes Filed: 11/13/2023 4:56 AM Note Text: RT notified of patient [facility] ED NOTE HNO ID: [id number] Author: Clint Alvarado RN Service: ? 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 Normal [facility] FLUABV+SARS-CoV-2+RSV Pnl Re sp EH+probeon 11-13-2023 FLUABV+SARS-CoV-2+RSV Pnl Resp EH+probe COVID 19 RESULT: Not detected The method used is RT-PCR or an equivalent NAAT method. Reference Range(the expected result in uninfected individuals): Not detected INFLUENZA A PCR: Not detected INFLUENZA B PCR: Not detected RSV PCR: Detected Abnormal [facility] Comment on above: Performed By: #### L [id number] #### [facility] CLIA [id number] [address] [place] [address] [place] Gas and Carbon monoxide pane l (BldV)on 11-13-2023 Base excess Calc (BldV) [Moles/Vol] 6 mmol/L High 0-2 [facility] Comment on above: Order Comment: Speci men Type: VENOUS BLOOD SPECIMENOrdering Facility: [facility] Address: [address] [place] [address] Performed By: #### 2 4344-4 ####[facility]ORY[facility]IA [id number] [place] [address] [place] Body temperature 98.6 [degF] Normal [facility] [facility] Comment on above: Order Comment: Speci men Type: VENOUS BLOOD SPECIMENOrdering Facility: [facility] Address: [address] [place] [address] Performed By: #### 2 4344-4 ####[facility] LABORATORYCLIA [id number] [place] [address] [place] Calcium.ionized (BldV) [Mass/Vol] 1.13 mmol/L Normal 1.08-1.30 [facility] Comment on above: Order Comment: Speci men Type: VENOUS BLOOD SPECIMENOrdering Facility: [facility] Address: [address] [place] [address] Performed By: #### 2 4344-4 ####[facility] LABORATORYCLIA [id number] [place] [address] [place] Calcium.ionized adjusted to pH 7.4 (BldA) [Moles/Vol] 1.06 mmol/L Low 1.08-1.30 [facility] Comment on above: Order Comment: Speci men Type: VENOUS BLOOD SPECIMENOrdering Facility: [facility] Address: [address] [place] [address] Performed By: #### 2 4344-4 ####[facility] LABORATORYCLIA [id number] [address] [place] Carboxyhemoglobin (BldV) [Mass fraction] 1.6 % Normal 0.0-2.0 [facility] Comment on above: Order Comment: Speci men Type: VENOUS BLOOD SPECIMENOrdering Facility: [facility] Address: [address] [place] [address] Result Comment: Carb oxyhemoglobin Reference Range for Smokers: 2.0-8.0% Performed By: #### 2 4344-4 ####[facility] LABORATORYCLIA [id number] [place] [address] [place] Chloride [Moles/Vol] 96 mmol/L Low 102-109 [facility] Comment on above: Order Comment: Speci men Type: VENOUS BLOOD SPECIMENOrdering Facility: [facility] Address: [address] [place] [address] Performed By: #### 2 4344-4 ####[facility] LABORATORYCLIA [id number] [address] [place] CO2 (BldV) [Partial pressure] 79 mm[Hg] High 42-55 [facility] Comment on above: Order Comment: Speci men Type: VENOUS BLOOD SPECIMENOrdering Facility: [facility] Address: [address] [place] [address] Performed By: #### 2 4344-4 ####[facility] LABORATORYCLIA [id number] [place] [id number] [place] Glucose [Mass/Vol] 141 mg/dL High 60-105 [facility] Comment on above: Order Comment: Speci men Type: VENOUS BLOOD SPECIMENOrdering Facility: [facility] Address: [address] [place] [address] Performed By: #### 2 4344-4 ####[facility] LABORATORYCLIA [id number] [place] [id number] [place] HCO3 (Bld) [Moles/Vol] 36 mmol/L High 24-28 [facility] Comment on above: Order Comment: Speci men Type: VENOUS BLOOD SPECIMENOrdering Facility: [facility] Address: [address] [place] [address] Performed By: #### 2 4344-4 ####[facility] LABORATORYCLIA [id number] [place] [address] [place] Hematocrit (Bld) [Volume fraction] 49.1 % Normal 39.0-51.0 [facility] Comment on above: Order Comment: Speci men Type: VENOUS BLOOD SPECIMENOrdering Facility: [facility] Address: [address] [place] [address] Performed By: #### 2 4344-4 ####[facility]ORATORYCLIA [id number] [place] [address] [place] Hemoglobin (Bld) [Mass/Vol] 16.0 g/dL Normal 13.0-17.0 [facility] Comment on above: Order Comment: Speci men Type: VENOUS BLOOD SPECIMENOrdering Facility: [facility] Address: [address] [place] [address] Performed By: #### 2 4344-4 ####[facility] LABORATORYCLIA [id number] [place] [address] [place] Lactate [Moles/Vol] 3.0 mmol/L High 0.5-2.2 [facility] Comment on above: Order Comment: Speci men Type: VENOUS BLOOD SPECIMENOrdering Facility: [facility] Address: [address] [place] [address] Performed By: #### 2 4344-4 ####[facility]ORATORYCLIA [id number] [place] [address] [place] Methemoglobin (Bld) [Mass fraction] 1.1 % Normal 0.0-1.5 [facility] Comment on above: Order Comment: Speci men Type: VENOUS BLOOD SPECIMENOrdering Facility: [facility] Address: [address] [place] [address] Performed By: #### 2 4344-4 ####[facility]ORATORYCLIA [id number] [address] [place] O2 THERAPY Positive Normal [facility] Comment on above: Order Comment: Speci men Type: VENOUS BLOOD SPECIMENOrdering Facility: [facility] Address: [address] [place] [address] Performed By: #### 2 4344-4 ####[facility]ORATORYCLIA [id number] [place] [address] [place] Oxygen (BldV) [Partial pressure] 71 mm[Hg] High 35-45 [facility] Comment on above: Order Comment: Speci men Type: VENOUS BLOOD SPECIMENOrdering Facility: [facility] Address: [address] [place] [address] Performed By: #### 2 4344-4 ####[facility]ORATORYCLIA [id number] [address] [place] Oxygen saturation in Venous blood 92 % High 60-85 [facility] Comment on above: Order Comment: Speci men Type: VENOUS BLOOD SPECIMENOrdering Facility: [facility] Address: [address] [place] [address] Performed By: #### 2 4344-4 ####[facility]ORATORYCLIA [id number] [address] [place] Oxyhemoglobin (BldV) [Mass fraction] 89 % High 60-85 [facility] Comment on above: Order Comment: Speci men Type: VENOUS BLOOD SPECIMENOrdering Facility: [facility] Address: [address] [place] [address] Performed By: #### 2 4344-4 ####[facility]ORATORYCLIA [id number] [place] [address] [place] pH (BldV) 7.28 [pH] Low 7.32-7.42 [facility] Comment on above: Order Comment: Speci men Type: VENOUS BLOOD SPECIMENOrdering Facility: [facility] Address: [address] [place] [address] Performed By: #### 2 4344-4 ####[facility]ORATORYCLIA [id number] [place] [address] [place] Potassium [Moles/Vol] 4.6 mmol/L Normal 3.5-5.0 [facility] Comment on above: Order Comment: Speci men Type: VENOUS BLOOD SPECIMENOrdering Facility: [facility] Address: [address] [place] [address] Performed By: #### 2 4344-4 ####[facility]ORATORYCLIA [id number] [address] [place] Sodium [Moles/Vol] 137 mmol/L Normal 136-144 [facility] Comment on above: Order Comment: Speci men Type: VENOUS BLOOD SPECIMENOrdering Facility: [facility] Address: [address] [place] [address] Performed By: #### 2 4344-4 ####[facility]ORATORYCLIA [id number] [place] [address] [place] Base excess Calc (BldV) [Moles/Vol] 4 mmol/L High 0-2 [facility] Comment on above: Order Comment: Speci men Type: BLOOD SPECIMEN [facility] Address: [address] [place] [address] Performed By: #### 3 3762-6, 18888-1 #### [facility] CLIA [id number] [address] [address] Body temperature 98.6 [degF] Normal [facility] Comment on above: Order Comment: Speci men Type: BLOOD SPECIMEN [facility] Address: [address] [place] [address] Performed By: #### 3 3762-6, 29199-0 #### [facility] CLIA [id number] [address] OF [facility] Calcium.ionized (BldV) [Mass/Vol] 1.11 mmol/L Normal 1.08-1.30 [facility] Comment on above: Order Comment: Speci men Type: BLOOD SPECIMEN [facility] Address: [address] [place] [address] Performed By: #### 3 3762-6, 41598-7 #### [facility] CLIA [id number] [address] [place] [address] Calcium.ionized adjusted to pH 7.4 (BldA) [Moles/Vol] 1.02 mmol/L Low 1.08-1.30 [facility] Comment on above: Order Comment: Speci men Type: BLOOD SPECIMEN [facility] Address: [address] [place] [address] Performed By: #### 3 3762-6, 91817-1 #### [facility] CLIA [id number] [address] [place] [address] [place] Carboxyhemoglobin (BldV) [Mass fraction] 2.3 % High 0.0-2.0 [facility] Comment on above: Order Comment: Speci men Type: BLOOD SPECIMEN [facility] Address: [address] [place] [address] Result Comment: Carb oxyhemoglobin Reference Range for Smokers: 2.0-8.0% Performed By: #### 3 3762-6, 19144-0 #### [facility] CLIA [id number] [address] [place] Chloride [Moles/Vol] 95 mmol/L Low 102-109 [facility] Comment on above: Order Comment: Speci men Type: BLOOD SPECIMEN [facility] Address: [address] [place] [address] Performed By: #### 3 3762-6, 95033-6 #### [facility] CLIA [id number] [address] OF [facility] CO2 (BldV) [Partial pressure] 86 mm[Hg] High 42-55 [facility] Comment on above: Order Comment: Speci men Type: BLOOD SPECIMEN [facility] Address: [address] [place] [address] Performed By: #### 3 3762-6, 92115-3 #### [facility] CLIA [id number] [address] STATES OF [facility] Glucose [Mass/Vol] 143 mg/dL High 60-105 [facility] Comment on above: Order Comment: Speci men Type: BLOOD SPECIMEN [facility] Address: [address] [place] [address] Performed By: #### 3 3762-6, 17070-1 #### [facility] CLIA [id number] [address] OF [facility] HCO3 (Bld) [Moles/Vol] 36 mmol/L High 24-28 [facility] Comment on above: Order Comment: Speci men Type: BLOOD SPECIMEN [facility] Address: [address] [place] [address] Performed By: #### 3 3762-6, 52381-7 #### [facility] CLIA [id number] [address] [place] Hematocrit (Bld) [Volume fraction] 49.8 % Normal 39.0-51.0 [facility] Comment on above: Order Comment: Speci men Type: BLOOD SPECIMEN [facility] Address: [address] [place] [address] Performed By: #### 3 3762-6, 58875-5 #### [facility] CLIA [id number] [address] [place] Hemoglobin (Bld) [Mass/Vol] 16.3 g/dL Normal 13.0-17.0 [facility] Comment on above: Order Comment: Speci men Type: BLOOD SPECIMEN [facility] Address: [address] [place] [address] Performed By: #### 3 3762-6, 82262-7 #### [facility] CLIA [id number] [address] [place] Lactate [Moles/Vol] 2.9 mmol/L High 0.5-2.2 [facility] Comment on above: Order Comment: Speci men Type: BLOOD SPECIMEN [facility] Address: [address] [place] [address] Performed By: #### 3 3762-6, 44816-9 #### [facility] CLIA [id number] [address] [place] Methemoglobin (Bld) [Mass fraction] 0.6 % Normal 0.0-1.5 [facility] Comment on above: Order Comment: Speci men Type: BLOOD SPECIMEN [facility] Address: [address] [place] [address] Performed By: #### 3 3762-6, 79465-0 #### [facility] CLIA [id number] [address] OF [facility] O2 THERAPY Positive Normal [facility] Comment on above: Order Comment: Speci men Type: BLOOD SPECIMEN [facility] Address: [address] [place] [address] Performed By: #### 3 3762-6, 06876-4 #### [facility] CLIA [id number] [address] [place] Oxygen (BldV) [Partial pressure] 75 mm[Hg] High 35-45 [facility] Comment on above: Order Comment: Speci men Type: BLOOD SPECIMEN [facility] Address: [address] [place] [place] [address] Performed By: #### 3 3762-6, 29415-5 #### [facility] CLIA [id number] [address] [place] Oxygen saturation in Venous blood 92 % High 60-85 [facility] Comment on above: Order Comment: Speci men Type: BLOOD SPECIMEN [facility] Address: [address] [place] [address] Performed By: #### 3 3762-6, 91146-0 #### [facility] CLIA [id number] 1 [place] [address] [place] Oxyhemoglobin (BldV) [Mass fraction] 89 % High 60-85 [facility] Comment on above: Order Comment: Speci men Type: BLOOD SPECIMEN [facility] Address: [address] [place] [address] Performed By: #### 3 3762-6, 25363-1 #### [facility] CLIA [id number] [address] [place] pH (BldV) 7.24 [pH] Low 7.32-7.42 [facility] Comment on above: Order Comment: Speci men Type: BLOOD SPECIMEN [facility] Address: [address] [place] [address] Performed By: #### 3 3762-6, 57880-0 #### [facility] CLIA [id number] [address] [place] Potassium [Moles/Vol] 4.9 mmol/L Normal 3.5-5.0 [facility] Comment on above: Order Comment: Speci men Type: BLOOD SPECIMEN [facility] Address: [address] [place] [address] Performed By: #### 3 3762-6, 03673-0 #### [facility] CLIA [id number] [address] [place] Sodium [Moles/Vol] 135 mmol/L Low 136-144 [facility] Comment on above: Order Comment: Speci men Type: BLOOD SPECIMEN [facility] Address: [address] [place] [address] Performed By: #### 3 3762-6, 11667-9 #### [facility] CLIA [id number] [address] STATES [facility] Base excess Calc (BldV) [Moles/Vol] 6 mmol/L High 0-2 [facility] Comment on above: Order Comment: Speci men Type: VENOUS BLOOD SPECIMENOrdering Facility: [facility] Address: [address] [place] [address] Performed By: #### 2 4344-4 ####[facility]ORATORYCLIA [id number] [address] Body temperature 98.6 [degF] Normal [facility] Comment on above: Order Comment: Speci men Type: VENOUS BLOOD SPECIMENOrdering Facility: [facility] Address: [address] [place] [address] Performed By: #### 2 4344-4 ####[facility]ATORYCLIA [id number] [address] Calcium.ionized (BldV) [Mass/Vol] 1.06 mmol/L Low 1.08-1.30 [facility] Comment on above: Order Comment: Speci men Type: VENOUS BLOOD SPECIMENOrdering Facility: [facility] Address: [address] [place] [address] Performed By: #### 2 4344-4 ####[facility]ATORYCLIA [id number] [address] STATES [facility] Calcium.ionized adjusted to pH 7.4 (BldA) [Moles/Vol] 0.97 mmol/L Low 1.08-1.30 [facility] Comment on above: Order Comment: Speci men Type: VENOUS BLOOD SPECIMENOrdering Facility: [facility] Address: [address] [place] [address] Performed By: #### 2 4344-4 ####[facility]ORATORYCLIA [id number] [place] [address] [place] Carboxyhemoglobin (BldV) [Mass fraction] 2.5 % High 0.0-2.0 [facility] Comment on above: Order Comment: Speci men Type: VENOUS BLOOD SPECIMENOrdering Facility: [facility] Address: [address] [place] [address] Result Comment: Carb oxyhemoglobin Reference Range for Smokers: 2.0-8.0% Performed By: #### 2 4344-4 ####[facility]ATORYCLIA [id number] [place] [address] [place] Chloride [Moles/Vol] 95 mmol/L Low 102-109 [facility] Comment on above: Order Comment: Speci men Type: VENOUS BLOOD SPECIMENOrdering Facility: [facility] Address: [address] [place] [address] Performed By: #### 2 4344-4 ####[facility]ATORYCLIA [id number] [address] [place] CO2 (BldV) [Partial pressure] 88 mm[Hg] High 42-55 [facility] Comment on above: Order Comment: Speci men Type: VENOUS BLOOD SPECIMENOrdering Facility: [facility] Address: [address] [place] [address] Performed By: #### 2 4344-4 ####[facility]ATORYCLIA [id number] [place] [address] [place] Glucose [Mass/Vol] 116 mg/dL High 60-105 [facility] Comment on above: Order Comment: Speci men Type: VENOUS BLOOD SPECIMENOrdering Facility: [facility] Address: [address] [place] [address] Performed By: #### 2 4344-4 ####[facility]ATORYCLIA [id number] [place] [address] [place] HCO3 (Bld) [Moles/Vol] 37 mmol/L High 24-28 [facility] Comment on above: Order Comment: Speci men Type: VENOUS BLOOD SPECIMENOrdering Facility: [facility] Address: [address] [place] [address] Performed By: #### 2 4344-4 ####[facility]ATORYCLIA [id number] [address] [place] Hematocrit (Bld) [Volume fraction] 47.1 % Normal 39.0-51.0 [facility] Comment on above: Order Comment: Speci men Type: VENOUS BLOOD SPECIMENOrdering Facility: [facility] Address: [address] [place] [address] Performed By: #### 2 4344-4 ####[facility]ATORYCLIA [id number] [address] [place] Hemoglobin (Bld) [Mass/Vol] 15.4 g/dL Normal 13.0-17.0 [facility] Comment on above: Order Comment: Speci men Type: VENOUS BLOOD SPECIMENOrdering Facility: [facility] Address: [address] [place] [address] Performed By: #### 2 4344-4 ####[facility]ATORYCLIA [id number] [address] Lactate [Moles/Vol] 1.8 mmol/L Normal 0.5-2.2 [facility] Comment on above: Order Comment: Speci men Type: VENOUS BLOOD SPECIMENOrdering Facility: [facility] Address: [address] [place] [address] Performed By: #### 2 4344-4 ####[facility]ATORYCLIA [id number] [address] [place] Methemoglobin (Bld) [Mass fraction] 0.5 % Normal 0.0-1.5 [facility] Comment on above: Order Comment: Speci men Type: VENOUS BLOOD SPECIMENOrdering Facility: [facility] Address: [address] [place] [address] Performed By: #### 2 4344-4 ####[facility]ATORYCLIA [id number] [address] [place] O2 THERAPY Positive Normal [facility] Comment on above: Order Comment: Speci men Type: VENOUS BLOOD SPECIMENOrdering Facility: [facility] Address: [address] [place] [address] Performed By: #### 2 4344-4 ####[facility]ATORYCLIA [id number] [place] [id number] [facility] [place] Oxygen (BldV) [Partial pressure] 72 mm[Hg] High 35-45 [facility] Comment on above: Order Comment: Speci men Type: VENOUS BLOOD SPECIMENOrdering Facility: [facility] Address: [address] [place] [address] Performed By: #### 2 4344-4 ####[facility]ORATORYCLIA [id number] [address] [place] Oxygen saturation in Venous blood 92 % High 60-85 [facility] Comment on above: Order Comment: Speci men Type: VENOUS BLOOD SPECIMENOrdering Facility: [facility] Address: [address] [place] [address] Performed By: #### 2 4344-4 ####[facility]ATORYCLIA [id number] [address] [place] Oxyhemoglobin (BldV) [Mass fraction] 89 % High 60-85 [facility] Comment on above: Order Comment: Speci men Type: VENOUS BLOOD SPECIMENOrdering Facility: [facility] Address: [address] [place] [address] Performed By: #### 2 4344-4 ####[facility]ATORYCLIA [id number] [place] [id number] [place] pH (BldV) 7.25 [pH] Low 7.32-7.42 [facility] Comment on above: Order Comment: Speci men Type: VENOUS BLOOD SPECIMENOrdering Facility: [facility] Address: [address] [place] [address] Performed By: #### 2 4344-4 ####[facility]ORATORYCLIA [id number] [place] [id number] [place] Potassium [Moles/Vol] 7.3 mmol/L Critically high 3.5-5.0 [facility] Comment on above: Order Comment: Speci men Type: VENOUS BLOOD SPECIMENOrdering Facility: [facility] Address: [address] [place] [address] Performed By: #### 2 4344-4 ####[facility]ORATORYCLIA [id number] [place] [address] [place] [facility] Sodium [Moles/Vol] 131 mmol/L Low 136-144 [facility] Comment on above: Order Comment: Meng blancas Type: VENOUS BLOOD SPECIMENOrdering Facility: [facility] Address: [address] [place] [address] Performed By: #### 2 4344-4 ####[facility]ORATORYCLIA [id number] [place] [address] [place] HIGH SENSITIVITY TROPONIN T (INITIAL)on 11-13-2023 Troponin T.cardiac High sensitivity method [Mass/Vol] 57 ng/L High <12 [facility] Comment on above: Order Comment: Meng blancas Type: BLOOD SPECIMEN [facility] Address: [address] [place] [address] Result Comment: When assessing risk for acute [...] day MACE. Performed By: #### 3 3762-6, 17362-1 #### [facility] CLIA [id number] [address] [place] HIGH SENSITIVITY TROPONIN T (SECOND)on 11-13-2023 Troponin T.cardiac High sensitivity method [Mass/Vol] 54 ng/L High <12 [facility] Comment on above: Order Comment: Meng blancas Type: BLOOD SPECIMEN [facility] Address: [address] [place] [address] Result Comment: When assessing risk for acute [...] day MACE. Performed By: #### 3 3762-6, 11161-8 #### [facility] CLIA [id number] [address] HIGH SENSITIVITY TROPONIN T (THIRD) 3 HRS AFTER INITIALon 11-13-2023 Troponin T.cardiac High sensitivity method [Mass/Vol] 54 ng/L High <12 [facility] Comment on above: Order Comment: Speci men Type: BLOOD SPECIMEN [facility] Address: [address] [place] [address] [place] [address] Result Comment: When assessing risk for acute [...] 30 day MACE. Performed By: #### L [id number] #### [facility] CLIA [id number] [address] HISTORY PHYSICALon HISTORY PHYSICAL HNO ID: [id number] Author: Jill Shin MD Service: Pulmonary Disease Author Type: Physician Type: HANDP Filed: 11/13/2023 3:44 PM Note Text: [facility] STAFF PHYSICIAN NOTE OF PERSONAL INVOLVEMENT IN CARE Attending Note I have personally performed a face to face assessment of the patient and have reviewed the SENIOR QUALITY TECHNICIAN/resident note and documentation. I personally participated in [...] AST 42* ALT 46 ABG: Invalid input(s): [id number] Chest imaging personally reviewed Pex: vitals as [...] 20 Gauge <1 day Peripheral 11/13/23 0750 [facility] Right Forearm 20 Gauge <1 day History: [...] patient for (more content not included)... Normal [facility] HISTORY PHYSICAL HNO ID: [id number] Author: Jill Shin MD Service: Critical Care Author Type: Physician Type: HANDP Filed: 11/14/2023 6:56 AM Note Text: MICU HANDP PATIENT NAME: Javier Dickson REASON FOR ADMISSION: Respiratory failure (Acute, with Hypercapnea, with Hypoxemia) and Severe metabolic disorder DATE: November 13, 2023 Subjective HPI Mr. Javier Dickson is a 53 year old male with PMH of COPD and tobacco abuse who presented to [facility] from home via EMS for worsening [...] AND Influenza A/B AND RSV NAAT, Expedited [[id number]] (Abn (more content not included)... Normal [facility] NT-proBNP SerPl-mCncon 11-13 Natriuretic peptide.B prohormone N-Terminal [Mass/Vol] 78904 pg/mL High <125 [facility] Comment on above: Order Comment: Speci men Type: BLOOD SPECIMENOrdering Facility: [facility] Address: [place] [address] Performed By: #### 3 3762-6, 43193-7 ####[facility] LABORATORYCLIA [id number] [place] [address] [place] STAPH AUREUS PCRon 4 S. aureus and MRSA panel EH+probe (Nose) Abnormal Negative [facility] Comment on above: Order Comment: Speci men Type: SWAB OF INTERNAL NOSEOrdering Facility: [facility] Address: [address] [place] [address] Result Comment: Posi tive for Staphylococcus aureus by PCR. Positive for MRSA by PCR Performed By: #### S APCR ####[facility] LABORATORYCLIA [id number] [address] [place] TOX SCREEN ROUT URon 024 Amphetamines Confirm (U) [Mass/Vol] Positive Abnormal Negative [facility] Comment on above: Order Comment: Speci men Type: URINE SPECIMENOrdering Facility: [facility] Address: [address] [place] [address] Result Comment: Cuto ff threshold at 1000 ng/mL. Performed By: #### U TOX2 ####[facility] LABORATORYCLIA [id number] [place] [address] [place] BARBITURATES, URINE Negative Normal Negative [facility] Comment on above: Order Comment: Speci men Type: URINE SPECIMENOrdering Facility: [facility] Address: [address] [place] [address] Result Comment: Cuto ff threshold at 200 ng/mL. Performed By: #### U TOX2 ####[facility] LABORATORYCLIA [id number] [place] [address] [place] BENZODIAZEPINES, UR Negative Normal Negative [facility] Comment on above: Order Comment: Speci men Type: URINE SPECIMENOrdering Facility: [facility] Address: [address] [place] [address] Result Comment: Cuto ff threshold at 200 ng/mL. Performed By: #### U TOX2 ####[facility] LABORATORYCLIA [id number] [place] [address] [place] Cannabinoids Screen Ql (U) Positive Abnormal Negative [facility] Comment on above: Order Comment: Speci men Type: URINE SPECIMENOrdering Facility: [facility] Address: [address] [place] [address] Result Comment: Cuto ff threshold at 50 ng/mL. Performed By: #### U TOX2 ####[facility]ORATORYCLIA [id number] [address] [place] Cocaine Ql (U) Positive Abnormal Negative [facility] Comment on above: Order Comment: Speci men Type: URINE SPECIMENOrdering Facility: [facility] Address: [address] [place] [address] Result Comment: Cuto ff threshold at 300 ng/mL. Performed By: #### U TOX2 ####[facility]ORATORYCLIA [id number] [address] [place] Ethanol (U) [Mass/Vol] <11 Normal <11 [facility] Comment on above: Order Comment: Speci men Type: URINE SPECIMENOrdering Facility: [facility] Address: [address] [place] [address] Performed By: #### U TOX2 ####[facility] LABORATORYCLIA [id number] [address] Opiates Screen Ql (U) Negative Normal Negative [facility] Comment on above: Order Comment: Speci men Type: URINE SPECIMENOrdering Facility: [facility] Address: [address] [place] [address] Result Comment: Cuto ff threshold at 300 ng/mL. Performed By: #### U TOX2 ####[facility]ORATORYCLIA [id number] [address] [place] oxyCODONE cutoff Screen (U) [Mass/Vol] Negative Normal Negative [facility] Comment on above: Order Comment: Speci men Type: URINE SPECIMENOrdering Facility: [facility] Address: [address] [place] [address] Result Comment: Cuto ff threshold at 100 ng/mL. Performed By: #### U TOX2 ####[facility]ORATORYCLIA [id number] [address] [place] Phencyclidine Ql (U) Negative Normal Negative [facility] Comment on above: Order Comment: Speci men Type: URINE SPECIMENOrdering Facility: [facility] Address: [address] [place] [address] Result Comment: Cuto ff threshold at 25 ng/mL. Performed By: #### U TOX2 ####[facility] LABORATORYCLIA [id number] [place] [address] [place] XR CHEST 1V [...] IMPRESSION: Right basilar patchy opacity favoring infection. Diesel Scoop Operator: ROLANDO Transcribe Date/Time: Nov 13 2023 6:19A Dictated by : ENOC KELLER MD This examination was interpreted and the report reviewed and electronically signed by: ENOC KELLER MD on Nov 13 2023 6:19AM EST [id number] Normal [facility] CT Maxillofacial region WO a nd W contrast Antonieta 09-06-2023 Nasal fracture. Report Dictated on Electronically Signed By: Glenn Rodriguez MD Electronically Signed Date/Time: 09/06/2023 4:20 PM [facility] Patient Name: JAVIER DICKSON : [...] are clear. No mastoiditis. No mandible dislocation. [facility] Glenn Rodriguez MD - 09/06/2023 Patient Name: JAVIER DICKSON : 1970 [id number] Exam Date/Time: 09/06/2023 15:36 Procedure: CT MAXILLOFACIAL [...] Electronically Signed Date/Time: 09/06/2023 4:20 PM EDT [facility] [employer] Radiology Study observation (narrative) [facility] CT Maxillofacial region WO a nd W contrast IVOrdered By: Glenn Rodriguez on 09-06-2023 [facility] [employer] Work Phone: Basic Metabolic Panelon 09-0 Calcium [Mass/Vol] 9.8 mg/dL Normal 8.4-10.4 [facility] [employer] Comment on above: Performed By: #### L IPD2, BMP3, HA1C2 #### [facility] [employer] [address] [place] [address] Glucose [Mass/Vol] 66 mg/dL Low 70-100 [facility] Comment on above: Performed By: #### L IPD2, BMP3, HA1C2 #### [facility] [employer] [address] [place] [address] Anion gap [Moles/Vol] 7 mmol/L Normal 3-13 [facility] Comment on above: Performed By: #### L IPD2, BMP3, HA1C2 #### [facility] [address], [place] CO2 [Moles/Vol] 32 mmol/L High 22-[address] [facility] Comment on above: Performed By: #### L IPD2, BMP3, HA1C2 #### [facility] [address], [place] Creatinine [Mass/Vol] 0.66 mg/dL Normal 0.52-1.25 [facility] Comment on above: Performed By: #### L IPD2, BMP3, HA1C2 #### [facility] [address] [place], [place] eGFR OTHER > 90.0 Normal >60 [facility] Comment on above: Result Comment: KDIG [...] By: #### L IPD2, BMP3, HA1C2 #### [facility] [address], [place] GFR/1.73 sq M.predicted among blacks MDRD (S/P/Bld) [Vol rate/Area] mL/min/{1.73_m2} Normal >60 [facility] Comment on above: Performed By: #### L IPD2, BMP3, HA1C2 #### [facility] [address] [place], [place] Urea nitrogen [Mass/Vol] 11 mg/dL Normal 7-17 [facility] Comment on above: Performed By: #### L IPD2, BMP3, HA1C2 #### [facility] [address] [place] [address] Chloride [Moles/Vol] 100 mmol/L Normal 98-107 [facility] Comment on above: Performed By: #### L IPD2, BMP3, HA1C2 #### [facility] [address], [place] Potassium [Moles/Vol] 4.6 mmol/L Normal 3.5-5.1 [facility] Comment on above: Performed By: #### L IPD2, BMP3, HA1C2 #### [facility] [address] [place] [address] Sodium [Moles/Vol] 139 mmol/L Normal 135-145 [facility] Comment on above: Performed By: #### L IPD2, BMP3, HA1C2 #### [facility] [address] [place], [place] Anion gap [Moles/Vol] 7 mmol/L 3 - 13 mmol/L [facility] Calcium [Mass/Vol] 9.8 mg/dL 8.4 - 10. 4 mg/dL [facility] Chloride [Moles/Vol] 100 mmol/L 98 - 10 7 mmol/L [facility] CO2 [Moles/Vol] 32 mmol/L High 22 - 30 mmol/L [facility] Creatinine [Mass/Vol] 0.66 mg/dL 0.52 - 1.25 mg/dL [facility] eGFR mL/min 60 - P INF mL/min [facility] EGFR IF NonAfrican Chilean mL/min 60 - PINF mL/min [facility] Comment on above: KDIGO guidelines pro [...] 66 mg/dL Low 70 - 100 mg/dL [facility] Interpretation and review of laboratory results Abnormal [facility] Potassium [Moles/Vol] 4.6 mmol/L 3.5 - 5.1 mmol/L [facility] Sodium [Moles/Vol] 139 mmol/L 135 - 145 mmol/L [facility] Urea nitrogen (BldV) [Mass/Vol] 11 mg/dL 7 - 17 mg/dL [facility] Hemoglobin A1Con 07-19-2022 Glucose [Mass/Vol] 123 mg/dL Normal [facility] Comment on above: Performed By: #### L IPD2, BMP3, HA1C2 #### [address] [address] HbA1c (Bld) [Mass fraction] 5.9 % Abnormal [facility] Comment on above: Result Comment: Norm al less than 5.7% Prediabetes 5.7% to 6.4% Diabetes 6.5% or higher --HgbA1C levels may not be accurate in patients who have renal disease, received recent blood transfusions, are anemic, or who have dyshemoglobinemia. Performed By: #### L IPD2, BMP3, HA1C2 #### [address] [address] eAG 123 mg/dL [facility] HbA1c (Bld) [Mass fraction] 5.9 % Abnormal [facility] Comment on above: Normal less than 5.7 % Prediabetes 5.7% to 6.4% Diabetes 6.5% or higher --HgbA1C levels may not be accurate in patients who have renal disease, received recent blood transfusions, are anemic, or who have dyshemoglobinemia. Interpretation and review of laboratory results Abnormal [facility] Test Performed by [facility], [address] [place] [address] [facility] Lipid Panelon 07-19-2022 Chol/HDL 3 Normal [facility] Comment on above: Result Comment: Ref Range: < 3 Low Risk for CHD 3-6 Mod Risk for CHD > 6 High Risk for CHD Performed By: #### L IPD2, BMP3, HA1C2 #### [address] [address] Cholesterol in HDL [Mass/Vol] 54 mg/dL Normal 40-60 [facility] Comment on above: Performed By: #### L IPD2, BMP3, HA1C2 #### [address] [address] Low Density Lipoprotein 95 mg/dL Normal <100 [facility] Comment on above: Performed By: #### L IPD2, BMP3, HA1C2 #### [address] [address] Triglyceride [Mass/Vol] 85 mg/dL Normal <150 [facility] Comment on above: Performed By: #### L IPD2, BMP3, HA1C2 #### [address] [address] Cholesterol [Mass/Vol] 166 mg/dL Normal < 200 [facility] Comment on above: Performed By: #### L IPD2, BMP3, HA1C2 #### [address] [address] Cholesterol [Mass/Vol] 166 mg/dL NINF - 200 mg/dL [facility] Cholesterol in HDL [Mass/Vol] 54 mg/dL 40 - 60 mg/dL [facility] Cholesterol in LDL [Mass/Vol] 95 mg/dL NINF - 100 mg/dL [facility] Cholesterol.total/Susan sterol in HDL [Mass ratio] 3 {ratio} [facility] Comment on above: Ref Range: < 3 Low Risk for CHD 3-6 Mod Risk for CHD > 6 High Risk for CHD Triglyceride [Mass/Vol] 85 mg/dL NINF - 150 mg/dL [facility] No Panel Informationon 07-19 Test Performed by [facility], [address] [place] [id number] [place] [address] LAB [facility] Basic Metabolic Panelon Calcium [Mass/Vol] 8.9 mg/dL Normal 8.4-10.4 [facility] Comment on above: Performed By: #### T ROPN, BMP3 #### [facility] [address], [place] Anion gap [Moles/Vol] 1 mmol/L Low 3-13 [facility] Comment on above: Performed By: #### T TAMMY BMP3 #### [facility] [address], [place] CO2 [Moles/Vol] 32 mmol/L High 22-30 [facility] Comment on above: Performed By: #### T TAMMY BMP3 #### [facility] [address], [place] Creatinine [Mass/Vol] 0.74 mg/dL Normal 0.52-1.25 [facility] Comment on above: Performed By: #### Laura MUNOZ BMP3 #### [facility] [address], [place] eGFR OTHER > 90.0 Normal >60 [facility] Comment on above: Result Comment: KDIG [...] Performed By: #### Laura MUNOZ BMP3 #### [facility] [address], [place] GFR/1.73 sq M.predicted among blacks MDRD (S/P/Bld) [Vol rate/Area] mL/min/{1.73_m2} Normal >60 [facility] Comment on above: Performed By: #### T TAMMY BMP3 #### [facility] [address] [place] [address] Glucose [Mass/Vol] 98 mg/dL Normal 70-100 [facility] Comment on above: Result Comment: Mode rately hemolysed, interpret with caution. Performed By: #### T TAMMY BMP3 #### [facility] [address] [place] [address] Urea nitrogen [Mass/Vol] 16 mg/dL Normal 7-17 [facility] Comment on above: Performed By: #### T TAMMY BMP3 #### [facility] [address] [place] [address] Chloride [Moles/Vol] 100 mmol/L Normal 98-107 [facility] Comment on above: Performed By: #### T TAMMY BMP3 #### [facility] [address] [place] [address] Potassium [Moles/Vol] 5.5 mmol/L High 3.5-5.1 [facility] Comment on above: Result Comment: Mode rately hemolysed, interpret with caution. Performed By: #### T TAMMY BMP3 #### [facility] [address], [place] Sodium [Moles/Vol] 134 mmol/L Low 135-145 [facility] Comment on above: Performed By: #### Laura MUNOZ BMP3 #### [facility] [address], [place] Anion gap [Moles/Vol] 1 mmol/L Low 3 - 13 mmol/L [facility] Calcium [Mass/Vol] 8.9 mg/dL 8.4 - 10. 4 mg/dL [facility] Chloride [Moles/Vol] 100 mmol/L 98 - 10 7 mmol/L [facility] CO2 [Moles/Vol] 32 mmol/L High 22 - 30 mmol/L [facility] Creatinine [Mass/Vol] 0.74 mg/dL 0.52 - 1.25 mg/dL [facility] EGFR IF NonAfrican Chilean >90.0 >60 mL/min [facility] Comment on above: KDIGO guidelines pro [...] - 17 mg/dL [facility] Test Performed by [facility], [address] [place] [id number] [place] [address] LAB [facility] CBC with Auto Differentialon 04-20-2022 Absolute Baso [...] - 10.7 10*3/uL [facility] Test Performed by [facility] [id number] [place] [address] LAB [facility] CR Chest Portableon 04-20-20 22 CR Chest Portable Patient Name: JAVIER DICKSON II Diagnostic Radiology ACCESSION EXAM DATE/TIME PROCEDURE ORDERING PROVIDER [id number] 04/20/2022 21:16 EDT CR Chest Portable [id number] JOHN MIXON CPT code 30902 Reason For Exam (CR Chest Portable) Chest [...] Transcribed Date and Time: 04/20/2022 9:28 Normal [facility] ED Provider Noteon ED Provider Note Emergency Department Encounter [facility] EM[facility]Y [facility] Patient: Javier Dickson II : [...] event and has a history of COPD [place] I wore appropriate PPE for the entirety of this encounter. Does this patient come from an ECF, SNF, Rehab, Usp or other Congregate setting: No (If yes to above patient needs a Covid-19 test) Nursing notes reviewed with [facility] social hx and PSH. Javier Dickson II [...] otherwise acutely negative except as in the [place]. Past History Past Medical History: Diagnosis Date [...] and Family: Not on file ? Attends Holiness Services: Not on file ? Active Member [...] results found. Procedures/EKG: [facility] In brief, Javier [...] that he (more content not included)... Normal [facility] EKG 12 Lead - Chest Painon 0 04-20-2022 [facility] Test Date: 2022-04-20 Pat Name: [facility] Department: [facility] Room: [facility] Gender: M Director Social Welfare: : 1970 Requested By: JOHN EDDY Order Number: [id number] Reading MD: Sherrell Gallagher Measurements Intervals [place] Rate: 74 P: 87 IA: 141 QRS: 56 QRSD: 91 T: 90 QT: 377 QTc: 419 Interpretive Statements Sinus rhythm Low voltage, precordial leads Nonspecific T abnormalities, lateral leads Electronically Signed On 04-20-2022 22:06:41 EDT by Sherrell DIEZ CARDIOLOGY Result, Unknown Provider - 04/20/2022 [facility] Test Date: 2022-04-20 Pat Name: [facility] Department: [facility] Room: [facility] Gender: M Director Social Welfare: : 1970 Requested By: JOHN EDDY Order Number: [id number] Reading MD: Sherrell Gallagher Measurements Intervals [place] Rate: 74 P: 87 IA: 141 QRS: 56 QRSD: 91 T: 90 QT: 377 QTc: 419 Interpretive Statements Sinus rhythm Low voltage, precordial leads Nonspecific T abnormalities, lateral leads Electronically Signed On 04-20-2022 22:06:41 EDT by Sherrell HAWLEY Work Phone: EKG 12 Lead - Chest PainOrde red By: Unknown Result on 04-20-2022 [facility] Hemogram w/ Autodiffon 04-20 Abs Baso Cnt 0.1 10*3/uL Normal 0.0-0.2 [facility] Comment on above: Performed By: #### H EMDF #### [facility] [address] [place] [address] Abs Neutrophile Cnt 4.7 10*3/uL Normal 1.8-7.0 [facility] Comment on above: Performed By: #### H EMDF #### [facility] [address] [place] [address] Basophils/100 WBC (Bld) 0.9 % Normal 0.0-2.0 [facility] Comment on above: Performed By: #### H EMDF #### [facility] [address] [place] [address] Eosinophils (Bld) [#/Vol] 0.2 10*3/uL Normal 0.0-0.5 [facility] Comment on above: Performed By: #### H EMDF #### [facility] [address] [place] [address] Eosinophils/100 WBC (Bld) 3.0 % Normal 1.0-6.0 [facility] Comment on above: Performed By: #### H EMDF #### [facility] [address] [place] [address] Erythrocyte distribution width (RBC) [Ratio] 13.5 % Normal 11.5-14.5 [facility] Comment on above: Performed By: #### H EMDF #### [facility] [address], [place] Granulocytes/100 WBC (Bld) 72.1 % Normal 40.0-80.0 [facility] Comment on above: Performed By: #### H EMDF #### [facility] [address], [place] Hematocrit (Bld) [Volume fraction] 40.0 % Normal 40.0-52.0 [facility] Comment on above: Performed By: #### H EMDF #### [place] [address] [address], [place] Hemoglobin (Bld) [Mass/Vol] 13.5 g/dL Normal 13.0-18.0 [facility] Comment on above: Performed By: #### H EMDF #### [place] [address] [address], [place] Lymphocytes (Bld) [#/Vol] 1.0 10*3/uL Normal 1.0-4.3 [facility] Comment on above: Performed By: #### H EMDF #### [place] [address] [address], [place] Lymphocytes/100 WBC (Bld) 15.4 % Low 20.0-40.0 [facility] Comment on above: Performed By: #### H EMDF #### [place] [address] [address], [place] MCH (RBC) [Entitic mass] 30.9 pg Normal 26.0-34.0 [facility] Comment on above: Performed By: #### H EMDF #### [place] [address] [address], [place] MCHC 33.7 % Normal 32.0-36.0 [facility] Comment on above: Performed By: #### H EMDF #### [place] [address] [address], [place] MCV (RBC) [Entitic vol] 91.6 fL Normal 80.0-98.0 [facility] Comment on above: Performed By: #### H EMDF #### [facility] [address], [place] Monocytes (Bld) [#/Vol] 0.6 10*3/uL Normal 0.0-0.8 [facility] Comment on above: Performed By: #### H EMDF #### [facility] [address], [place] Monocytes/100 WBC (Bld) 8.6 % Normal 2.0-10.0 [facility] Comment on above: Performed By: #### H EMDF #### [place] [address] [address], [place] Platelet mean volume (Bld) [Entitic vol] 7.7 fL Normal 7.4-12.4 [facility] Comment on above: Result Comment: MPV is a calculated measurement using platelet volume ratio. Performed By: #### H EMDF #### [place] [address] [address], [place] Platelets (Bld) [#/Vol] 287 10*3/uL Normal 140-440 [facility] Comment on above: Performed By: #### H EMDF #### [place] [address] [address], [place] RBC (Bld) [#/Vol] 4.37 10*6/uL Low 4.40-5.90 [facility] Comment on above: Performed By: #### H EMDF #### [place] [address] [address], [place] WBC (Bld) [#/Vol] 6.5 10*3/uL Normal 3.6-10.7 [facility] Comment on above: Performed By: #### H EMDF #### [place] [address] [address], [place] Troponin Ion 04-20-2022 Troponin I.cardiac [Mass/Vol] ng/mL Normal 0.000-0.034 [facility] Comment on above: Result Comment: Mode rately hemolysed, interpret with caution. . Performed By: #### T ROPN, BMP3 #### [place] [address] [place] [address] Troponin x1on 04-20-2022 Troponin I.cardiac [Mass/Vol] ng/mL 0.000 - 0.034 ng/mL [facility] Comment on above: Moderately hemolysed , interpret with caution. . Test Performed by [facility], [address] [place] [address] [facility] XR CHEST PORTABLEon 04-20-20 Patient Name: JAVIER DICKSON II Diagnostic Radiology ACCESSION EXAM DATE/TIME PROCEDURE ORDERING PROVIDER [id number] 04/20/2022 21:16 EDT CR Chest Portable [id number] -CRESAP JOHN CPT code 06008 Reason For Exam (CR Chest Portable) Chest [...] THOMAS Transcribed Date and Time: 04/20/2022 9:28 [facility] Paula Camacho M D - 04/20/2022 Patient Name: JAVIER DICKSON II Diagnostic Radiology ACCESSION EXAM DATE/TIME PROCEDURE ORDERING PROVIDER [id number] 04/20/2022 21:16 EDT CR Chest Portable [id number] -CRESAP JOHN CPT code 23727 Reason For Exam (CR Chest Portable) Chest [...] Time: 04/20/2022 9:32 pm Signed by: MD CMAACHO THOMAS Transcribed Date and Time: 04/20/2022 9:28 [facility] Work Phone: Radiology Study observation (narrative) [facility] Work Phone: XR CHEST PORTABLEOrdered By: Paula Camacho on 04-20-2022 [facility] Work Phone: XR FOOT 3V AP/LAT/OBL LTon [...] FOOT 3V AP/LAT/OBL RT -- LEFT (accession [id number]), RIGHT (accession [id number]) with 3 views on 3 images Comparison: [...] toes. IMPRESSION: Hammertoe deformity bilaterally Hallux valgus [employer] Operator: [employer] Transcribe Date/Time: Jan 11 2021 3:45A Dictated by : GRAHAM BERNARDO MD This examination was interpreted and the report reviewed and electronically signed by: GRAHAM BERNARDO MD on Jan 11 2021 3:46AM EST Normal [facility] XR FOOT 3V AP/LAT/OBL RTon 0 01-11-2021 [...] FOOT 3V AP/LAT/OBL RT -- LEFT (accession [id number]), RIGHT (accession [id number]) with 3 views on 3 images Comparison: [...] toes. 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 This test was developed and its performance characteristics determined by [facility] [place]. This test has been authorized by FDA under an Emergency Use Authorization (EUA). This test has been validated in accordance with the FDA's Guidance Document Policy for Diagnostics Testing in Laboratories Certified to Perform High Complexity Testing under CLIA prior to Emergency use Authorization for Coronavirus Disease 2019 during the Public Health Emergency" issued on January 11, 2020. Performing Laboratory: [facility] [address] [place] [address] Performed By: #### C D19X ####[place] [address] Activated PTTon 06-21-2020 aPTT Coag (Bld) [Time] 28.5 s Normal 23.0-32.4 [facility] Comment on above: Result Comment: Unfr actionated [...] laboratory APTT reagent in use throughout the [facility]. 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 Both posterior cerebral arteries are normal in caliber bilaterally. There is normal opacification of the dural venous sinuses. Collar Tacker (topogram) images: Unremarkable. IMPRESSION: NORMAL NECK AND INTRACRANIAL CTA. NORMAL APPEARANCE OF THE RIGHT INTERNAL JUGULAR VEIN. MODERATE AMOUNT OF SUBCUTANEOUS GAS THROUGHOUT THE RIGHT NECK BUT NO EVIDENCE OF A FOCAL HEMATOMA OR RADIOPAQUE FOREIGN BODY. 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 Both posterior cerebral arteries are normal in caliber bilaterally. There is normal opacification of the dural venous sinuses. Collar Tacker (topogram) images: Unremarkable. IMPRESSION: NORMAL NECK AND INTRACRANIAL CTA. NORMAL APPEARANCE OF THE RIGHT INTERNAL JUGULAR VEIN. MODERATE AMOUNT OF SUBCUTANEOUS GAS THROUGHOUT THE RIGHT NECK BUT NO EVIDENCE OF A FOCAL HEMATOMA OR RADIOPAQUE FOREIGN BODY. Diesel Scoop Operator[facility] Transcribe Date/Time: Jun 21 2020 12:45P Dictated by : TRUNG WORLEY MD This examination was interpreted and the report reviewed and electronically signed by: TRUNG WORLEY MD on Jun 21 2020 12:49PM EST Normal [facility] Comprehensive Metabolic Pane cliff 06-21-2020 Albumin [Mass/Vol] 4.3 g/dL Normal 3.9-4.9 [facility] Comment on above: Performed By: #### C MP #### [place] [address] ALP [Catalytic activity/Vol] 101 U/L Normal 38-113 [facility] Comment on above: Performed By: #### C MP #### [address] [address] ALT [Catalytic activity/Vol] 20 U/L Normal 10-54 [facility] Comment on above: Performed By: #### C MP #### [address] [address] Anion gap [Moles/Vol] 9 mmol/L Normal 9-18 [facility] Comment on above: Performed By: #### C MP #### [address] [address] AST [Catalytic activity/Vol] 25 U/L Normal 14-40 [facility] Comment on above: Performed By: #### C MP #### [address] [address] Bilirubin [Mass/Vol] 0.2 mg/dL Normal 0.2-1.3 [facility] Comment on above: Performed By: #### C MP #### [address] [address] Calcium [Mass/Vol] 9.1 mg/dL Normal 8.5-10.2 [facility] Comment on above: Performed By: #### C MP #### [facility] [address] [place], [place] [address] Chloride [Moles/Vol] 103 mmol/L Normal 97-105 [facility] Comment on above: Performed By: #### C MP #### [facility] [address] [place], [place] [address] CO2 Blood 28 mmol/L Normal 22-30 [facility] Comment on above: Performed By: #### C MP #### [facility] [address] [place], [place] [address] Creatinine [Mass/Vol] 0.90 mg/dL Normal 0.73-1.22 [facility] Comment on above: Performed By: #### C MP #### [facility] [address] [place], [place] [address] Glucose [Mass/Vol] 107 mg/dL High 74-99 [facility] Comment on above: Result Comment: The [place] Diabetes Association (ADA) provides guidance for cutoff [...] Standards of Medical Care in Diabetes 2016; [place] Diabetes Association. Diabetes Care. 2016;39(Suppl 1). Performed By: #### C MP #### [facility] [address] [place], [place] [address] Potassium [Moles/Vol] 4.0 mmol/L Normal 3.7-5.1 [facility] Comment on above: Performed By: #### C MP #### [facility] [address] [place], [place] [address] Protein [Mass/Vol] 6.6 g/dL Normal 6.3-8.0 [facility] Comment on above: Performed By: #### C MP #### [facility] [address] [place] [address] Sodium [Moles/Vol] 140 mmol/L Normal 136-144 [facility] Comment on above: Performed By: #### C MP #### [facility] [address] [place] [address] Urea nitrogen [Mass/Vol] 15 mg/dL Normal 9-24 [facility] Comment on above: Performed By: #### C MP #### [facility] [address] [place] [address] Hemogramon 06-21-2020 Erythrocyte distribution width (RBC) [Ratio] 12.1 % Normal 11.6-14.4 [facility] Comment on above: Performed By: #### C BC1 #### [facility] [address] [place] [address] Hematocrit (Bld) [Volume fraction] 39.4 % Low 40.1-51.0 [facility] Comment on above: Performed By: #### C BC1 #### [facility] [address] [place] [address] Hemoglobin (Bld) [Mass/Vol] 13.2 g/dL Low 13.7-17.5 [facility] Comment on above: Performed By: #### C BC1 #### [facility] [address] [place] [address] MCH (RBC) [Entitic mass] 30.8 pg Normal 25.7-32.2 [facility] Comment on above: Performed By: #### C BC1 #### [facility] [address] [place] [address] MCHC (RBC) [Mass/Vol] 33.5 % Normal 32.3-36.5 [facility] Comment on above: Performed By: #### C BC1 #### [facility] [address] [place] [address] MCV (RBC) [Entitic vol] 92.1 fL Normal 83.2-95.6 [facility] Comment on above: Performed By: #### C BC1 #### [facility] [address] [place] [address] Platelet mean volume (Bld) [Entitic vol] 9.4 fL Normal 8.7-12.0 [facility] Comment on above: Performed By: #### C BC1 #### [facility] [address] [place], [place] [address] Platelets (Bld) [#/Vol] 317 thou/cmm Normal 141-365 [facility] Comment on above: Performed By: #### C BC1 #### [place] [id number] RBC (Bld) [#/Vol] 4.28 mil/cmm Low 4.63-6.08 [facility] Comment on above: Performed By: #### C BC1 #### [place] [address] RDW SD 40.9 fl Normal 36.1-45.8 [facility] Comment on above: Performed By: #### C BC1 #### [place] [id number] WBC (Bld) [#/Vol] 6.63 thou/cmm Normal 4.23-9.07 [facility] Comment on above: Performed By: #### C BC1 #### [place] [id number] Lipase Bloodon 06-21-2020 Lipase Blood 36 U/L Normal 16-61 [facility] Comment on above: Performed By: #### L IP #### [place] [address] MDRD GFRon 06-21-2020 GFR/1.73 sq M predicted among non-blacks MDRD (S/P/Bld) [Vol rate/Area] mL/min/{1.73_m2} Normal >60mL/min/1. 73m2 [facility] Comment on above: Result Comment: If t he patient is , multiply the result by 1.210. Performed By: #### G FR #### [place] [address] Protimeon 06-21-2020 INR Coag (PPP) [Relative time] 0.95 {INR} Normal 0.90-1.30 [facility] Comment on above: Result Comment: Carmelita min K Antagonist (VKA) Therapeutic Range: INR 2 to 3 (Target INR of 2.5) Note: For patients treated with VKA drugs, such as warfarin, the [place] [employer] 2012 Guideline recommends [...] Chest 2012; 141:7S-47S Calvin RA, et al. [facility] 2017; 70: 252-289 Performed By: #### P T #### [place] [address] PT Coag (PPP) [Time] 10.3 s Normal 9.7-13.0 [facility] Comment on above: Performed By: #### P T #### [place] [address] Type and Screenon 06-21-2020 ABO group Nom (Bld) O Normal [facility] Comment on above: Performed By: #### T &S #### [place] [address] Comment See Below Normal [facility] Comment on above: Result Comment: Scre en &/or Xmatch expires in 3 days at 12 midnight. Redraw patient at that time. Performed By: #### T &S #### [place] [address] RH Type Positive Normal [facility] Comment on above: Performed By: #### T &S #### [place] [address] Urine Drug Screenon 06-21-20 20 Urine Alcohol <11 Normal 0-11 [facility] Comment on above: Performed By: #### U DRG3 ####[facility] [place], [place] [address] Urine Amphetamine see below Abnormal NEGATIVE [facility] Comment on above: Result Comment: PRES UMPTIVE POSITIVE Performed By: #### U DRG3 ####[facility] [place], [place] [address] Urine Barbiturates Negative Normal NEGATIVE [facility] Comment on above: Performed By: #### U DRG3 ####[facility] [place], [place] [address] Urine Benzodiazepine Negative Normal NEGATIVE [facility] Comment on above: Performed By: #### U DRG3 ####[facility] [place], [place] [address] Urine Cocaine Metab Negative Normal NEGATIVE [facility] Comment on above: Performed By: #### U DRG3 ####[facility] [place], [place] [address] Urine Opiates Negative Normal NEGATIVE [facility] Comment on above: Performed By: #### U DRG3 ####[facility] [place], [place] [address] Urine Oxycodone Negative Normal NEGATIVE [facility] Comment on above: Performed By: #### U DRG3 ####[facility] [place], [place] [address] Urine PCP Negative Normal NEGATIVE [facility] Comment on above: Result Comment: Test Cutoff [...] the same specimen through the laboratory at ([phone]) if contacted within 48 hours of initial 1. Substance Abuse and Mental Health Services Administration (2012). Clinical Drug Testing in Primary Care Technical Assistance Publication Series 32. Department of Health and Human Services, [place], p.10. Performed By: #### U DRG3 ####[facility] [place], [place] [address] Urine THC Negative Normal NEGATIVE [facility] Comment on above: Performed By: #### U DRG3 ####[facility] [place], [place] [address] XR CHEST 1V FRONTALon 2019 XR CHEST 1V FRONTAL Final Report DATE OF EXAM: Jun 21 2020 11:34AM [facility] [id number] - XR CHEST 1V FRONTAL / PROCEDURE REASON: Chest trauma, blunt Physician Interpretation EXAMINATION: CHEST RADIOGRAPH (SINGLE VIEW AP OR PA) CLINICAL HISTORY: Chest trauma, blunt MQ: XC1_5 Comparison: None RESULT: Lines, tubes, and devices: child monitor leads overlie the thorax. Lungs and pleura: No consolidation. No lung mass. No pleural effusion. Cardiomediastinal silhouette: Normal cardiomediastinal silhouette. Other: Osseous structures are unremarkable. IMPRESSION: No acute radiographic abnormality. Diesel Scoop Operator: PSCB Transcribe Date/Time: Jun 21 2020 11:45A Dictated by : SATHISH WOLFF MD This examination was interpreted and the report reviewed and electronically signed by: SATHISH WOLFF MD on Jun 21 2020 11:46AM EST Normal [facility] Basic Metabolic Panelon 11-0 Anion gap [Moles/Vol] 4 Normal [facility] Comment on above: Performed By: #### B MP3, PT, HEMDF #### [facility] [address] [place] [address] Calcium [Mass/Vol] 8.8 mg/dL Normal 8.4-10.4 [facility] Comment on above: Performed By: #### B MP3, PT, HEMDF #### [facility] [address] [place] [address] CO2 [Moles/Vol] 30 mmol/L Normal 22-30 [facility] Comment on above: Performed By: #### B MP3, PT, HEMDF #### [facility] [address] [place] [address] Creatinine [Mass/Vol] 0.68 mg/dL Normal 0.52-1.25 [facility] Comment on above: Performed By: #### B MP3, PT, HEMDF #### [facility] [address] [place] [address] GFR/1.73 sq M predicted among blacks MDRD (S/P/Bld) [Vol rate/Area] mL/min/{1.73_m2} Normal >60 [facility] Comment on above: Performed By: #### B MP3, PT, HEMDF #### [facility] [address] [place] [address] GFR/1.73 sq M predicted among non-blacks MDRD (S/P/Bld) [Vol rate/Area] mL/min/{1.73_m2} Normal >60 [facility] Comment on above: Result Comment: Sour ce- MDRD equation with creatinine calibration to IDMS(NKDEP) eGFR not recommended for drug dose adjustment Performed By: #### B MP3, PT, HEMDF #### [facility] [address] [place] [address] Glucose [Mass/Vol] 89 mg/dL Normal 70-100 [facility] Comment on above: Performed By: #### B MP3, PT, HEMDF #### [facility] [address] [place] [address] Urea nitrogen [Mass/Vol] 10 mg/dL Normal 7-20 [facility] Comment on above: Performed By: #### B MP3, PT, HEMDF #### [facility] [address] [place] [address] Chloride [Moles/Vol] 104 mmol/L Normal 98-107 [facility] Comment on above: Performed By: #### B MP3, PT, HEMDF #### [facility] [address] [place] [address] Potassium [Moles/Vol] 4.3 mmol/L Normal 3.5-5.1 [facility] Comment on above: Performed By: #### B MP3, PT, HEMDF #### [facility] [address] [place] [id number] Sodium [Moles/Vol] 138 mmol/L Normal 135-145 [facility] Comment on above: Performed By: #### B MP3, PT, HEMDF #### [facility] [address] [place] [id number] Anion gap [Moles/Vol] 4 mmol/L [place], [place] Calcium [Mass/Vol] 8.8 mg/dL 8.4 - 10. 4 mg/dL [place], [place] Chloride [Moles/Vol] 104 mmol/L 98 - 10 7 mmol/L [place] CO2 [Moles/Vol] 30 mmol/L 22 - 30 mmol/L [place] Creatinine [Mass/Vol] 0.68 mg/dL 0.52 - 1.25 mg/dL [place] EGFR IF NonAfrican [place] >60.0 >60 mL/min [place] Comment on above: Source- MDRD equatio n with creatinine calibration to IDMS(NKDEP) eGFR not recommended for drug dose adjustment GFR/1.73 sq M predicted among blacks MDRD (S/P/Bld) [Vol rate/Area] mL/min/{1.73_m2} >60 mL/min [place] Glucose [Mass/Vol] 89 mg/dL 70 - 100 mg/dL [place] Potassium [Moles/Vol] 4.3 mmol/L 3.5 - 5.1 mmol/L [place] Sodium [Moles/Vol] 138 mmol/L 135 - 145 mmol/L [place] Urea nitrogen [Mass/Vol] 10 mg/dL 7 - 20 mg/dL [place] Test Performed by [facility] [employer] [facility], [address], [place], [place] [address] [place], [place] CR Shoulder 2+ Views Righton 09-18-2019 CR Shoulder 2+ Views Right Patient Name: JAVIER DICKSON II Diagnostic Radiology Exam Date/Time 09/18/2019 09:55:12 EST Exam CR Shoulder 2+ Views Right Ordering Physician MD NANNETTE, CAM Accession Number [id number] CPT4 Codes 75477 () Reason For Exam pain Report RIGHT [...] Transcribed Date and Time: 09/18/2019 9:56 Normal [facility] CT Head WO Contraston 2018 Patient Name: JAVIER DICKSON II ---CT--- Exam Date/Time 09/18/2019 10:15:[address] Head or Brain w/o Contrast Ordering Physician MD NANNETTE, CAM Accession Number [id number] CPT4 Codes 49872 () Reason For Exam trauma Report CT [...] R Transcribed Date and Time: 09/18/2019 10:31 [place], [place], [facility] Incoming [facility] - 09/18/2019 10:32 AM EST Patient Name: JAVIER DICKSON II ---CT--- Exam Date/Time 09/18/2019 10:15:[address] Head or Brain w/o Contrast Ordering Physician MD NANNETTE, CAM Accession Number [id number] CPT4 Codes 01201 () Reason For Exam trauma Report CT [...] R Transcribed Date and Time: 09/18/2019 10:31 [place] CT Head or Brain w/o Contras ton 09-18-2019 CT Head or Brain w/o Contrast Patient Name: JAVIER DICKSON II CT Exam Date/Time 09/18/2019 10:15:[address] Head or Brain w/o Contrast Ordering Physician MD NANNETTE, CAM Accession Number [id number] CPT4 Codes 83900 () Reason For Exam trauma Report CT [...] Transcribed Date and Time: 09/18/2019 10:31 Normal [facility] Hemogram (CBC) w/Auto Diffon 09-18-2019 Absolute Baso # 0.1 10*3/uL 0 - 0.2 10*3/uL [place] Absolute Neut # 4.5 10*3/uL 1.8 - 7 10*3/uL [place] Basophils/100 WBC (Bld) 0.9 % 0 - 2 % [place] Eosinophils (Bld) [#/Vol] 0.2 10*3/uL 0 - 0.5 10*3/uL [place] Eosinophils/100 WBC (Bld) 3.8 % 1 - 6 % [place] Erythrocyte distribution width (RBC) [Ratio] 13.0 % 11.5 - 14.5 % [place] Granulocytes/100 WBC (Bld) 69.7 % 40 - 80 % [place] Hematocrit (Bld) [Volume fraction] 40.6 % 40 - 52 % [place] Hemoglobin (Bld) [Mass/Vol] 13.6 g/dL 13 - 18 g/dL [place] Interpretation and review of laboratory results Abnormal [place] Lymphocytes (Bld) [#/Vol] 1.1 10*3/uL 1 - 4.3 10*3/uL [place] Lymphocytes/100 WBC (Bld) 16.3 % Low 20 - 40 % [place] MCH (RBC) [Entitic mass] 30.8 pg 26 - 34 pg [place] MCHC (RBC) [Mass/Vol] 33.6 % 32 - 36 % [place] MCV (RBC) [Entitic vol] 91.5 fL 80 - 98 fL [place], [place] Monocytes (Bld) [#/Vol] 0.6 10*3/uL 0 - 0.8 10*3/uL [place] Monocytes/100 WBC (Bld) 9.3 % 2 - 10 % [place] Platelet mean volume (Bld) [Entitic vol] 7.0 fL Low 7.4 - 10.4 fL [place] Platelets (Bld) [#/Vol] 329 10*3/uL 140 - 440 10*3/uL [place] RBC (Bld) [#/Vol] 4.43 10*6/uL 4.4 - 5.9 10*6/uL [place] WBC (Bld) [#/Vol] 6.5 10*3/uL 3.6 - 10.7 10*3/uL [place] Test Performed by [facility] [employer] [facility], [address] [place] [address] [place] Hemogram w/ Autodiffon 09-18 Abs Baso Cnt 0.1 10*3/uL Normal 0.0-0.2 [facility] Comment on above: Performed By: #### B MP3, PT, HEMDF #### [facility] [employer] [facility] [address] [place] [address] Abs Neutrophile Cnt 4.5 10*3/uL Normal 1.8-7.0 [facility] Comment on above: Performed By: #### B MP3, PT, HEMDF #### [facility] [employer] [facility] [address] [place] [address] Basophils/100 WBC (Bld) 0.9 % Normal 0.0-2.0 [facility] Comment on above: Performed By: #### B MP3, PT, HEMDF #### [facility] [address] [place] [address] Eosinophils (Bld) [#/Vol] 0.2 10*3/uL Normal 0.0-0.5 [facility] Comment on above: Performed By: #### B MP3, PT, HEMDF #### [facility] [address] [place] [address] Eosinophils/100 WBC (Bld) 3.8 % Normal 1.0-6.0 [facility] Comment on above: Performed By: #### B MP3, PT, HEMDF #### [facility] [address] [place] [address] Erythrocyte distribution width (RBC) [Ratio] 13.0 % Normal 11.5-14.5 [facility] Comment on above: Performed By: #### B MP3, PT, HEMDF #### [facility] [address] [place] [id number] Granulocytes/100 WBC (Bld) 69.7 % Normal 40.0-80.0 [facility] Comment on above: Performed By: #### B MP3, PT, HEMDF #### [facility] [address] [place] [address] Hematocrit (Bld) [Volume fraction] 40.6 % Normal 40.0-52.0 [facility] Comment on above: Performed By: #### B MP3, PT, HEMDF #### [facility] [address] [place] [id number] Hemoglobin (Bld) [Mass/Vol] 13.6 g/dL Normal 13.0-18.0 [facility] Comment on above: Performed By: #### B MP3, PT, HEMDF #### [facility] [address] [place] [address] Lymphocytes (Bld) [#/Vol] 1.1 10*3/uL Normal 1.0-4.3 [facility] Comment on above: Performed By: #### B MP3, PT, HEMDF #### [facility] [address] [place] [address] Lymphocytes/100 WBC (Bld) 16.3 % Low 20.0-40.0 [facility] Comment on above: Performed By: #### B MP3, PT, HEMDF #### [facility] [address] [place] [address] MCH (RBC) [Entitic mass] 30.8 pg Normal 26.0-34.0 [facility] Comment on above: Performed By: #### B MP3, PT, HEMDF #### [facility] [address] [place] [address] MCHC (RBC) [Mass/Vol] 33.6 % Normal 32.0-36.0 [facility] Comment on above: Performed By: #### B MP3, PT, HEMDF #### [facility] [address] [place] [address] MCV (RBC) [Entitic vol] 91.5 fL Normal 80.0-98.0 [facility] Comment on above: Performed By: #### B MP3, PT, HEMDF #### [facility] [address] [place] [address] Monocytes (Bld) [#/Vol] 0.6 10*3/uL Normal 0.0-0.8 [facility] Comment on above: Performed By: #### B MP3, PT, HEMDF #### [facility] [address] [place] [address] Monocytes/100 WBC (Bld) 9.3 % Normal 2.0-10.0 [facility] Comment on above: Performed By: #### B MP3, PT, HEMDF #### [facility] [address] [place] [address] Platelet mean volume (Bld) [Entitic vol] 7.0 fL Low 7.4-10.4 [facility] Comment on above: Performed By: #### B MP3, PT, HEMDF #### [facility] [address] [place] [address] Platelets (Bld) [#/Vol] 329 10*3/uL Normal 140-440 [facility] Comment on above: Performed By: #### B MP3, PT, HEMDF #### [facility] [address] [place] [id number] RBC (Bld) [#/Vol] 4.43 10*6/uL Normal 4.40-5.90 [facility] Comment on above: Performed By: #### B MP3, PT, HEMDF #### [facility] [address] [place] [id number] WBC (Bld) [#/Vol] 6.5 10*3/uL Normal 3.6-10.7 [facility] Comment on above: Performed By: #### B MP3, PT, HEMDF #### [facility] [address] [place] [id number] Prothrombin Timeon 9 INR Coag (PPP) [Relative time] 0.9 Normal 0.9-1.1 [facility] Comment on above: Result Comment: Sudhakar [...] By: #### B MP3, PT, HEMDF #### [facility] [address] [place] [id number] PT Coag (PPP) [Time] 9.5 s Normal 9.0-12.0 [facility] Comment on above: Result Comment: . Performed By: #### B MP3, PT, HEMDF #### [facility] [address] [place] [id number] Protime-INRon 09-18-2019 INR Coag (PPP) [Relative time] 0.9 {INR} [facility] [place] Comment on above: Recommended Anticoag ulant Therapy: [...] [Time] 9.5 s 9 - 12 s [place], [place] Comment on above: . Test Performed by [facility] [employer] [facility], [address], [place], [place] [address] [place] XR Shoulder Right 2 VWon [place], [facility] Incoming Radiology Results From [facility] - 09/18/2019 9:56 AM EST Patient Name: JAVIER DICKSON II ---Diagnostic Radiology--- Exam Date/Time 09/18/2019 09:55:12 EST Exam CR Shoulder 2+ Views Right Ordering Physician MD NANNETTE, CAM Accession Number [id number] CPT4 Codes 41929 () Reason For Exam pain Report RIGHT [...] R Transcribed Date and Time: 09/18/2019 9:56 [place] Patient Name: JAVIER DICKSON II ---Diagnostic Radiology--- Exam Date/Time 09/18/2019 09:55:12 EST Exam CR Shoulder 2+ Views Right Ordering Physician MD NANNETTE, CAM Accession Number [id number] CPT4 Codes 37535 () Reason For Exam pain Report RIGHT [...] R Transcribed Date and Time: 09/18/2019 9:56 [place], [place] Vital Signs Date Time Vital Sign Value Performing Clinician Facility 08-14-2024 07:00-0400 Heart rate 83 /min Emely Amin MD Work Phone: [facility] [employer] 08-14-2024 07:00-0400 SaO2% (BldA) [Mass fraction] 97 % Emely Amin MD Work Phone: [facility] [employer] Comment on above: RA 06-27-2024 12:39-0400 Body height 182.9 cm Paula Raphael MD Work Phone: [facility] [employer] 06-27-2024 12:39-0400 Body mass index (BMI) [Ratio] 21.02 kg/m2 Paula Raphael MD Work Phone: [facility] [employer] 06-27-2024 12:39-0400 Body weight 70.31 kg Paula Raphael MD Work Phone: [facility] [employer] 04-29-2024 12:55-0400 Body height 182.9 cm Emely Amni MD Work Phone: [facility] [employer] 04-29-2024 12:55-0400 Diastolic blood pressure 77 mm[Hg] Emely Amin MD Work Phone: [facility] [employer] 04-29-2024 12:55-0400 Heart rate 72 /min Emely Amin MD Work Phone: [facility] [employer] 04-29-2024 12:55-0400 SaO2% (BldA) [Mass fraction] 86 % Emely Amin MD Work Phone: [facility] 04-29-2024 12:55-0400 Systolic blood pressure 119 mm[Hg] Emely Amin MD Work Phone: [facility] 09-06-2023 15:19-0400 Body temperature 98.01 [degF] Kelsi Batista MD Work Phone: [facility] 09-06-2023 15:19-0400 Diastolic blood pressure 81 mm[Hg] Kelsi Batista MD Work Phone: [facility] 09-06-2023 15:19-0400 Heart rate 91 /min Kelsi Batista MD Work Phone: [facility] 09-06-2023 15:19-0400 Respiratory rate 17 /min Kelsi Batista MD Work Phone: [facility] 09-06-2023 15:19-0400 SaO2% (BldA) [Mass fraction] 95 % Kelsi Batista MD Work Phone: [facility] 09-06-2023 15:19-0400 Systolic blood pressure 117 mm[Hg] Kelsi Batista MD Work Phone: [facility] 04-20-2022 19:25-0400 Body height 182.9 cm John Eddy MD Work Phone: [facility] 04-20-2022 19:25-0400 Body mass index (BMI) [Ratio] 21.02 kg/m2 John Eddy MD Work Phone: [facility] 04-20-2022 19:25-0400 Body temperature 98.1 [degF] John Eddy MD Work Phone: [facility] 04-20-2022 19:25-0400 Body weight 70.31 kg John Eddy MD Work Phone: [facility] 04-20-2022 19:25-0400 Diastolic blood pressure 69 mm[Hg] John Eddy MD Work Phone: [facility] 04-20-2022 19:25-0400 Heart rate 82 /min John Eddy MD Work Phone: [facility] 04-20-2022 19:25-0400 Respiratory rate 16 /min John Eddy MD Work Phone: [facility] 04-20-2022 19:25-0400 SaO2% (BldA) [Mass fraction] 95 % John Eddy MD Work Phone: [facility] 04-20-2022 19:25-0400 Systolic blood pressure 101 mm[Hg] John Eddy MD Work Phone: [facility] 09-18-2019 09:39-0500 Body Temperature 97.9 [degF] [place] 09-18-2019 09:39-0500 BP Diastolic 90 mm[Hg] [place] 09-18-2019 09:39-0500 BP Systolic 141 mm[Hg] [place] 09-18-2019 09:39-0500 Pulse (Heart Rate) 90 /min [place] 09-18-2019 09:39-0500 Pulse Oximetry 97 % [place] 09-18-2019 09:39-0500 Respiratory Rate 16 /min [place] Encounters Encounter Date Encounter Type Care Provider Facility Start: 07-24-2025 End: 07-24-2025 ambulatory Paula JALLOH Facility:[facility] Start: 07-02-2025 ambulatory Paula JALLOH Facil ity:[facility] Start: 06-02-2025 ambulatory Paula JALLOH Facil ity:[facility] Start: 01-31-2025 End: 01-31-2025 ambulatory Paula JALLOH [facility] Work Phone: Start: 01-31-2025 End: 01-31-2025 Departed Referred Paula Raphael [facility] [address] Start: 01-31-2025 End: 01-31-2025 ambulatory Paula JALLOH Facility:[facility] Start: 10-03-2024 End: 10-03-2024 ambulatory Paula JALLOH Facility:[facility] Start: 09-16-2024 End: 09-16-2024 ambulatory Paula JALLOH Facility:[facility] Start: 08-14-2024 End: 08-14-2024 Subsequent hospital visit by physician Emely Amin MD Work Phone: [facility] Comment on above: Chronic respiratory failure with hypoxia (HCC) Start: 08-14-2024 End: 08-14-2024 ambulatory [facility] Start: 06-27-2024 End: 06-27-2024 Subsequent hospital visit by physician Paula Raphael MD Work Phone: [facility] Comment on above: Mastodynia Start: 06-27-2024 End: 06-27-2024 ambulatory [facility] Start: 06-25-2024 End: 06-25-2024 ambulatory [facility] Start: 04-29-2024 End: 04-29-2024 Office outpatient new 45 minutes Emely Amin MD Work Phone: [facility] Comment on above: Chronic respiratory failure with hypoxia (HCC) (Primary Dx); Chronic obstructive pulmonary disease, unspecified COPD type (HCC); Bullous emphysema (HCC); Cigarette nicotine dependence without complication Start: 04-29-2024 End: 04-29-2024 ambulatory [facility] Start: 02-08-2024 End: 02-08-[address] [facility] Work Phone: Start: 02-08-2024 End: 02-08-2024 [facility] [address] Start: 01-12-2024 Telephone encounter Emily burton Virtualization Engineer [facility] Comment on above: Pulm Rehab (Letter S ent) Start: 01-09-2024 End: 01-09-[address] [facility] Work Phone: Start: 01-09-2024 End: 01-09-2024 Departed Referred [facility] [address] Start: 01-09-2024 Registered Referred [facility] [address] Start: 01-08-2024 End: 01-08-[address] [facility] Work Phone: Start: 01-08-2024 End: 01-08-2024 Departed Referred [facility] [address] Start: 01-01-2024 Telephone encounter Beto grant Work Phone: [facility] Comment on above: Home Care (Confirmat ion Call ) Orders Start: 12-28-2023 Telephone encounter Maykel manrique LPN Work Phone: [facility] Comment on above: Home Care (MD to joanne lozada) Other Start: 12-27-2023 End: 01-05-2024 Evaluation and management of inpatient [facility] Facility:[facility] Start: 12-25-2023 Telephone encounter Alcon wong MD Work Phone: [facility] Comment on above: 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) Start: 11-28-2023 ambulatory [facility] [place] Start: 11-27-2023 ambulatory [facility] [place] Start: 11-22-2023 Telephone encounter Kelsi chambers MD Work Phone: [facility] Clinical Communication Comment on above: update on patient Start: 11-13-2023 End: 11-23-2023 Evaluation and management of inpatient DAVION IFEANYI Facility:[facility] Start: 09-06-2023 End: 09-06-2023 Emergency department patient visit Kelsi Batista MD Work Phone: [facility] Comment on above: Insect bite of head, unspecified part, initial encounter (Primary Dx); Chronic obstructive pulmonary disease, unspecified COPD type (HCC) Start: 08-13-2022 ambulatory KELSI BATISTA [facility] Start: 08-03-2022 ambulatory KELSI BATISTA [facility] Start: 07-19-2022 ambulatory KELSI BATISTA [facility] Start: 07-19-2022 End: 07-19-2022 Subsequent hospital visit by physician Pat Lee DO Work Phone: [facility] USE ONLY Comment on above: Screening for condit ion Start: 04-20-2022 End: 04-21-2022 Emergency department patient visit PCP No [facility] Start: 04-20-2022 End: 04-20-2022 Emergency department patient visit John Eddy MD Work Phone: [facility] Emergency Dept Comment on above: COPD exacerbation (H CC) (Primary Dx); Shortness of breath Start: 06-23-2020 End: 06-23-2020 Letter encounter Blessing Aquino Work Phone: [facility] Start: 09-18-2019 End: 09-18-2019 Emergency department patient visit Cam Bowen Nannette Work Phone: [facility] ED Comment on above: Injury of head, [...] Ct maxillofacial w/o contrast material Danilo Hastings [employer] Work Phone: Start: 07-19-2022 Vaccine refused by [...] above: Performed By: #### T &S #### [place] [id number] Start: 09-18-2019 Ct head/brain w/o contrast material [...] or older (1 - 1-dose 60+ series) [facility] Start: 09-18-2029 DTaP/Tdap/Td vaccine (2 - Td or Tdap) DTaP/Tdap/Td vaccine (2 - Td or Tdap) [facility] Start: 09-18-2029 DTaP/Tdap/Td vaccine (2 - Td) DTaP/Tdap/Td vaccine (2 - Td) [place] Start: 09-18-2029 DTaP/Tdap/Td Vaccine s (2 - Td or Tdap) DTaP/Tdap/Td Vaccines (2 - Td or Tdap) [facility] Start: 09-18-2029 Urine microalbumin profile DTa P,Tdap,Td Vaccine (2 - Td or Tdap) [facility] Start: 07-19-2027 Lipid panel [facility] Start: 12-30-2026 Diabetes Screening Diabetes Screenin g [facility] Start: 08-14-2024 End: 08-14-2024 Patient encounter procedure 08/14/2024 7:30 AM EDT Appointment [facility] [address] [place] [address] Emely Amin MD [address] [address] [facility] Start: 07-14-2024 COVID-19 Vaccine ( season) COVID-19 Vaccine () [facility] Start: 07-14-[address] [facility] Start: 06-04-2024 End: 06-04-2024 Patient encounter procedure [facility] Start: 04-29-2024 End: 04-29-2025 Complete PFT pre and post bronchodilator Complete PFT pre and post bronchodilator PFT Routine Chronic respiratory failure with hypoxia (HCC) Expected: 04/29/2024 (Approximate), Expires: 04/29/2025 [facility] Work Phone: Comment on above: Expected: 04/29/2024 (Approximate), Expires: 04/29/2025 Start: 02-13-2024 End: 01-30-2025 CT Chest W contrast IV CT CHEST W IVCON Radiology Routine Localized enlarged lymph nodes Expected: 02/13/2024, Expires: 01/30/2025 [facility] Work Phone: Comment on above: Expected: 02/13/2024 , Expires: 01/30/2025 Start: 11-13-2023 Depression Assessment Depression Ass essment [facility] Start: 07-19-2023 Creatinine measurement Creatinine Le keely [facility] Start: 09-06-2023 Diabetes mellitus screening Diabetes Screening [facility]: 07-19-2023 Hemoglobin A1c measurement A1C test (Diabetic or Prediabetic) [facility] Start: 07-19-2023 Potassium measurement Potassium Bje l [facility] Start: 07-14-2023 COVID-19 Vaccine ( season) COVID-19 Vaccine ( season) [facility] Start: 07-14-2023 Influenza vaccination Influenza Vacc ine (#1) [facility] Start: 08-11-2022 End: 08-11-2022 Patient encounter procedure 08/11/2022 Office Visit [facility] Kelsi Batista MD [address] [place], [place] [id number] [facility] Start: 08-03-2022 End: 08-03-2022 Patient encounter procedure 08/03/2022 Appointment Radiology [facility] [address] Start: 07-14-2022 Influenza vaccination [facility] Start: 2021 Shingles vaccine (1 of 2) Patel gles vaccine (1 of 2) [facility] Start: 2021 Shingrix Vaccine (1 of 2) Patel grix Vaccine (1 of 2) [facility] Start: 2021 Zoster Vaccines (1 of 2) Zoste r Vaccines (1 of 2) [facility] Start: 07-14-2019 Influenza vaccination Flu vaccine (# 1) [place], [place] Start: 2016 Screening for malign ant neoplasm of colon [facility] Start: 2011 Lipid panel Lipids [facility] Start: 2011 Lipid screen Lipid screen [place], [place] Start: 2001 Zoledronic acid therapy Alpha- 1 Antitrypsin Deficiency Screening [facility] Start: 1990 Hepatitis A Vaccines (1 of 2 - Risk 2-dose series) Hepatitis A Vaccines (1 of 2 - Risk 2-dose series) [facility] Start: 1990 Hepatitis B Vaccines (1 of 3 - 19+ 3-dose series) Hepatitis B Vaccines (1 of 3 - 19+ 3-dose series) [facility] Start: 1989 Annual PCP Team Hydrologic Engineer latisha Disease Visit Annual PCP Team Chronic Disease Visit [facility] Start: 1989 Hepatitis C screening S [facility] Start: 1989 Spirometry Spirometry [facility] Start: 1986 HIV screen HIV screen [place], [place] Start: 1986 HIV screening HIV screen [facility] Start: 1983 Depression Screen Depression Screen [facility] Start: 1983 Depression Screening Depression Scre ening [facility] Start: 1977 Pneumococcal 0-64 ye ars Vaccine (1 - PCV) Pneumococcal 0-64 years Vaccine (1 - PCV) [facility] Start: 1976 COVID-19 Vaccine (1) COVID-19 Vaccin e (1) [facility] Start: 1972 MMR Vaccines (1 of 1 - Standard series) MMR Vaccines (1 of 1 - Standard series) [facility] Start: 1971 COVID-19 Vaccine (#1) COVID-19 Vacci ne (#1) [facility] Start: 1971 Echocardiography Echocardiogram [facility] Start: 1971 Hepatitis B Vaccine (1 of 3 - 3-dose series) Hepatitis B Vaccine (1 of 3 - 3-dose series) [facility] Start: 1971 Hepatitis B Vaccines (1 of 3 - 3-dose series) Hepatitis B Vaccines (1 of 3 - 3-dose series) [facility] Start: 1971 HIV screening HIV Screening [facility] Start: 1971 Screening for malign ant neoplasm of colon [facility] Complete PFT pre and post bronchodilator Complete PFT pre and post bronchodilator PFT Routine Chronic respiratory failure with hypoxia (HCC) 08/14/2024 8:31 AM EDT [facility] Work Phone: [facility] Immunizations Immunization Date Immunization Notes Care Provider Fa cility 07-19-2022 Pneumococcal conjuga te PCV20, PF (Prevnar 20) Pat Lee DO Work Phone: [facility] 09-18-2019 tetanus toxoid, redu denise diphtheria toxoid, and acellular pertussis vaccine, adsorbed Cam Nannette [facility] 09-18-2019 diphtheria, tetanus toxoids and acellular pertussis vaccine, unspecified formulation [facility] [employer] [place], [place] Payers Date Payer Category Payer Self-pay 2022 Medicaid [id number] 2022 Medicaid [id number] 2020 Unknown [place] [id number] 2020-Present Indemnity [id number] 2019 Medicaid [place] [facility] [place] [id number] 2019-Present Medicaid [id number] 1971 Unknown [id number] 1971 Unknown [id number] 1971 Unknown [id number] 1971 Unknown [id number] Unknown Unknown [id number] Unknown [id number] Unknown [id number] Unknown [id number] Unknown [id number] Unknown [id number] Social History Date Type Detail Facility Start: 06-22-2020 Tobacco smoking stat us NMIS Unknown if ever smoked [facility] Start: 06-22-2020 History SDOH Financial 3 [facility] Start: 06-22-2020 History SDOH Food Worry 2 [facility] Start: 1970 Sex Assigned At Not on file M PAAY Start: 04-10-2022 End: 04-20-2022 Exposure to SARS-CoV-2 (event) Not sure [facility] Start: 09-18-2019 End: 01-10-2021 Tobacco smoking status NHIS Current every day smoker [employer] Start: 09-18-2019 End: 06-27-2024 Alcohol intake Not Currently [employer] Start: 09-18-2019 Tobacco use and exposure Smokeless tobacco non-user [facility] Work Phone: Start: 04-20-2022 End: 06-27-2024 Alcohol intake Ex-drinker (finding) [employer] Work Phone: Start: 07-19-2022 History SDOH Food Worry 1 [facility] Work Phone: Start: 04-20-2022 End: 06-27-2024 History of Social function [facility] How often to you hav e a drink containing alcohol? Never [facility] How many standard drinks containing alcohol do you have on a typical day? [facility] History of tobacco use Cigarette Smoker C [facility] Work Phone: Has the [employer], or [employer] threatened to shut off services in your home in past 12Mo No [facility] Work Phone: How hard is it for y ou to pay for the very basics like food, housing, medical care, and heating Not very hard [facility] Work Phone: (I/We) worried henri boyd (my/our) food would run out before (I/we) got money to buy more. Never true [facility] Work Phone: Start: 1970 Sex Assigned At Male W [facility] Start: 02-17-2025 Sex Male (finding) [facility] Clinical Notes 04-20-2022 to 04-29-2024 Emely Amin MD - 04/29/2024 1:00 PM EDTTelephone Encounter - Emily Farris, Virtualization Engineer - 01/12/2024 8:37 AM ESTTelephone Encounter - [...] answer. Looks like he was hospitalized at [facility] in December, was initially on NIV, discharged on O2. Currently residing at [facility] in [place]. Would like to get a POC for ease of mobility. Would like to get stronger and go home. Says his breathing is "not so good". Cough, congestion, intermittent wheeze. Does not think the inhalers are doing much. Still smoking, has a electrical calibrator in his sock. ROS: Review of Systems [...] traZODone (Desyrel) 50 MG tablet 50 mg. Evqplcofeqc-Onmenyfas-Mkdntn (Trelegy Ellipta) 200-62.5-25 MCG/ACT aerosol powder Inhale [...] Radiology: Reviewed the CT chest reports from [facility] PFT: None Echocardiogram: Done at [facility] in November Technically difficult exam due [...] nicotine dependence without complication Other orders - Ktmbafpklrp-Crehursnx-Fqdqnj (Trelegy Ellipta) 200-62.5-25 MCG/ACT aerosol powder ; Inhale 1 puff daily. Get him a POC for ease of use and mobility, especially while at [facility] to help with rehab Change Advair and Incruse to Trelegy DuoNeb as needed Albuterol as needed PFTs Will need a follow-up CT chest at some point in the near future Needs an alpha-1 test at some point Has to stop smoking Follow-up: Follow up for PFT results. documented in this encounter [facility] 04-29-2024 Note 04/29/2024 REFERRING PHYSICIAN: Kelsi Batista [...] answer. Looks like he was hospitalized at [facility] in December, was initially on NIV, discharged on O2. Currently residing at [facility] in [place]. Would like to get a POC for ease of mobility. Would like to get stronger and go home. Says his breathing is "not so good". Cough, congestion, intermittent wheeze. Does not think the inhalers are doing much. Still smoking, has a electrical calibrator in his sock. ROS: Review of Systems [...] traZODone (Desyrel) 50 MG tablet 50 mg. Tcptibohxvd-Kabvdatuh-Iusyul (Trelegy Ellipta) 200-62.5-25 MCG/ACT aerosol powder Inhale [...] Radiology: Reviewed the CT chest reports from [facility] PFT: None Echocardiogram: Done at [facility] in November Technically difficult exam due [...] prior CC echocardiogra (more content not included)... [facility] 01-12-2024 Miscellaneous Notes Sent letter to patient regarding Pulmonary Rehab requesting response by 01/26/2024. documented in this encounter [facility] 01-05-2024 Note HNO ID: [id number] Author: AGUILAR LOPEZ MD Service: Hospital Medicine [...] January 05, 2024 TIME: 11:34 AM PAGER: [facility] 01-05-2024 Note HNO ID: [id number] Author: CRYSTAL CHARLTON RN Service: Care Management [...] Arrangements: Ambulance Transportation Agency and Phone #:: [facility] ( [facility] ) [phone] / [phone] Date of Trip: 01/05/24 Time of Trip: 1400 Type of Service: BLS Non-emergency Is Patient Medicaid Pending?: No Was transportation financial coverage discussed with family?: Patient Patient Care Secretary Location: [facility] Destination: [facility] Financial Care Management Responsibility: None Handoff Communication: Handoff to: Other Caregiver Other Caregiver Name/Phone: Greer Additional Information: Met with patient at bedside. Discussed [facility] Cot transportation arranged for 2 pm thru [facility] Provided patient with HCPOA packet, address and phone number for facility provided to patient. Transportation packet on chart. Bedside RN to call report to [phone]. MD, RN, facility and patient are all aware of d/c plan and are in agreement. Discharge summary, d/c order sent electronically to facility. SIGNATURE: Crystal Charlton RN PATIENT NAME: Javier Dickson DATE: January 05, 2024 TIME: 9:52 AM CONTACT #: [phone] [facility] 01-05-2024 Telephone encounter Note Called patient, patient's vm is not set up yet [facility] 01-05-2024 Miscellaneous Notes Called patient, patient's vm is not set up yet Name of caller: Ayleen Contact phone number: [phone] Relationship to Patient: [facility] Home Care Provider: Luis E Practice: [facility] Chief Complaint/Reason for Call: Ayleen called to [...] Please advise. Name of caller: Lucy from [facility] Contact phone number: [phone] opt #5 Relationship to Patient: Lucy from [facility] care Provider: Dr. Batista Practice: [facility] Chief Complaint/Reason for Call: Lucy from [facility] care calling to see if Dr. Batista will follow the patient for home care. Please advise. Best time of day caller can be reached: any Patient advised that office/PCP has 24-48 business hours to return their call: No documented in this encounter [facility] [employer] 01-04-2024 Note HNO ID: [id number] Author: AGUILAR LOPEZ MD Service: Hospital Medicine [...] Unable to send him to a homeless long-term as oxygen cannot be provided. Plan for SNF/ECF at this time Plan of care discussed with: Provider, RN, Patient. SIGNATURE: Aguilar Lopez MD PATIENT NAME: Javier Dickson DATE: January 04, 2024 TIME: 1:47 PM [facility]ER: [facility] [facility] Note HNO ID: [id number] Author: CRYSTAL CHARLTON RN Service: Care Management Author Type: Registered Nurse Type: Care Mgt Progress Note Filed: 01/03/2024 14:37 Note Text: CARE MANAGEMENT PROGRESS NOTE SERVICE DATE: 01/03/2024 SERVICE TIME: 1431 LOS: 7 days [place] Given: Yes Level of Care Discussed: Half-Way Facility Financial Disclosure Provided: Yes Financial Disclosure Comments[facility] Homeless long-term, neither can [facility]. Patient spoke with son yesterday, son still uncertain if patient can return to the home that his son is living at. Discussed d/c to SNF/ECF where they can assist with applying for disability and obtaining housing for patient. Pt. Is in agreement. Pt. Was accepted to [facility]( [facility] facility to [facility]). Pt. Chose [facility]. Insurance auth initiated. Discharge plan is SNF LOC pending insurance authorization. Pt. Will need cot transportation at d/c. Will continue to follow. SIGNATURE: Crystal Charlton RN PATIENT NAME: Javier Dickson DATE: January 03, 2024 TIME: 2:31 PM PAGER/CONTACT #: [phone] [facility] 01-03-2024 Note HNO ID: [id number] Author: AGUILAR LOPEZ MD Service: Hospital Medicine [...] January 03, 2024 TIME: 1:51 PM PAGER: [facility] 01-02-2024 Note HNO ID: [id number] Author: AGUILAR LOEPZ MD Service: Hospital Medicine Author Type: Physician [...] January 02, 2024 TIME: 3:37 PM PAGER: [facility] 01-02-2024 Note HNO ID: [id number] Author: CHUYITA HARRINGTON LSW Service: Care Management Author Type: Dockworker Type: Care Mgt Progress Note Filed: 01/02/2024 [...] 02, 2024 TIME: 1:54 PM PAGER/CONTACT #: [phone] [facility] 01-02-2024 Note HNO ID: [id number] Author: CRYSTAL CHARLTON RN Service: Care Management Author Type: Registered Nurse Type: Care Mgt Progress Note Filed: 01/02/2024 10:38 Note Text: CARE MANAGEMENT PROGRESS NOTE SERVICE DATE: 01/02/2024 SERVICE TIME: 87419 LOS: 6 days Needs Prior to Discharge: To Be Determined;Discharge Transportation;Oxygen Set-up Chart reviewed, no return call from patient's son Andrea. Attempted to contact Andrea today. No answer, unable to leave a voice mail d/t mail box being full. Unable to determine if patient has somewhere to stay at d/c. Will ask SW to assist with Housing/Homeless long-term. SIGNATURE: Crystal Charlton RN PATIENT NAME: Javier Dickson DATE: January 02, 2024 TIME: 10:35 AM PAGER/CONTACT #: [phone] [facility] 01-01-2024 Note HNO ID: [id number] Author: CRYSTAL CHARLTON RN Service: Care Management [...] information phone numbers for transportation thru his [employer] insurance, and PCP list. Pt. Has not followed up with his PCP for a few years, will not follow for HHC. Updated Dr. Chappell, Dr. Chappell is in agreement to follow for HHC until patient gets established with a PCP. Will discuss with son and schedule a PCP appointment prior to d/c. [facility] has delivered a portable oxygen take to patient's room, will deliver a concentrator and nebulizer to patient's home once location confirmed. Anticipate d/c tomorrow once service address confirmed with [employer] and HHC. Will continue to follow. SIGNATURE: Crystal Charlton RN PATIENT NAME: Javier Dickson DATE: January 01, 2024 TIME: 4:18 PM PAGER/CONTACT #: [phone] [facility] 01-01-2024 Note HNO ID: [id number] Author: KIMI ZAPATA RN Service: ? Author Type: Registered Nurse Type: Nursing Progress Note Filed: 01/01/2024 12:09 Note Text: O2 Saturation test Resting on 4L 93% Resting RA 91% Walking 4L 92% Walking RA 87% [facility] 01-01-2024 Miscellaneous Notes Jacob there! (Spoke with: Javier ) My name is Beto Crenshaw and I'm calling from [facility]. Your doctor wants to make [...] address will we be seeing you at? [place] [address] Do you have any upcoming appointments or [...] it? Not sure documented in this encounter [facility] 01-01-2024 Telephone encounter Note Name of caller: Ayleen Contact phone number: [phone] Relationship to Patient: [facility] Provider: Luis E Practice: [facility] Chief Complaint/Reason for Call: Ayleen called to see if the doctor would follow for home care. I released the message to her about the patient will need an appointment. She said she will note that. Please advise Best time of day caller can be reached: any Patient advised that office/PCP has 24-48 business hours to return their call: No [facility] 01-01-2024 Note HNO ID: [id number] Author: KAROLINA CHAPPELL MD Service: Hospital Medicine Author Type: Physician Type: Progress Notes Filed: 01/01/2024 18:12 Note Text: Subjective - follow up for [facility], this is day 5, chart reviewed. PAST [...] for on-going surveillance (which I ordered in [facility]). 4) Small right pleural effusion - s/p [...] per Nutrition services on 01/01. Discussed with behavioral health care coordinator 01/01 - 'Chart reviewed, spoke with patient at bedside. States h (more content not included)... [facility] 01-01-2024 Note HNO ID: [id number] Author: DEANNA FLORES APRN.VANESSA Service: Pulmonary Disease Author Type: Nurse Practitioner Type: Progress Notes Filed: 01/01/2024 10:52 Note Text: PULMONARY PROGRESS NOTE [facility] SERVICE DATE: January 01, 2024 SERVICE TIME: [...] ORAL q 6 H PRN Raven Lara APRN.POP SINGER 30 mL at 12/31/23 0243 polyethylene glycol [...] burst of systemic (more content not included)... [facility] 01-01-[address] Capellan, Please sign the orders for Javier Dickson (f/u CT chest in 6 weeks for resolution of ZACHERY) The patient will also need a follow up with our office afterwards. Thank you! Deanna Flores APRN.CNP January 01, 2024 10:46 AM documented in this encounter [facility] 12-31-2023 Note HNO ID: [id number] Author: CHELI CEE MD Service: Hospital Medicine [...] Javier Dickson DATE: 12/31/2023 TIME: 10:58 AM [facility] 12-30-2023 Note HNO ID: [id number] Author: CHELI CEE MD Service: Hospital Medicine [...] Javier Dickson DATE: 12/30/2023 TIME: 5:20 PM [facility] 12-30-2023 Note HNO ID: [id number] Author: JAMEEL SCHULZ RN Service: Care Management [...] the above information. Dme ordered already in [place]. SIGNATURE: Jameel Schulz RN PATIENT NAME: Javier Dickson DATE: December 30, 2023 TIME: 3:30 PM PAGER/CONTACT #: [phone] [facility] 12-29-2023 Note HNO ID: [id number] Author: AGUILAR LOPEZ MD Service: Hospital Medicine [...] December 29, 2023 TIME: 4:53 PM PAGER: [facility] 12-29-2023 Note HNO ID: [id number] Author: CRYSTAL CHARLTON RN Service: Care Management [...] is home with [facility], equipment thru [employer], and home oxygen thru [employer]. Will continue to follow. SIGNATURE: Crystal Charlton RN PATIENT NAME: Javier Dickson DATE: December 29, 2023 TIME: 3:25 PM PAGER/CONTACT #: [phone] [facility] 12-28-2023 Note HNO ID: [id number] Author: AGUILAR LOPEZ MD Service: Hospital Medicine [...] December 28, 2023 TIME: 1:55 PM PAGER: [facility] 12-28-2023 Telephone encounter Note Patients last visit 07/19/22. Please advise. [facility] 12-28-2023 Telephone encounter Note Name of caller: Lucy from [facility] care Contact phone number: [phone] opt #[phone] Relationship to Patient: Lucy from [facility] Provider: Dr. Batista Practice: [facility] Chief Complaint/Reason for Call: Lucy from [facility] calling to see if Dr. Batista will follow the patient for home care. Please advise. Best time of day caller can be reached: any Patient advised that office/PCP has 24-48 business hours to return their call: No [facility] 12-28-2023 Note HNO ID: [id number] Author: KARLA GONZALES LSW Service: Care Management Author Type: Dockworker Type: Care Mgt Progress Note Filed: 12/28/2023 [...] care. Patient in agreement. Patient's address is [address] [place] [address]. Patient will need desat study to see if he is eligible for home o2. [employer] to email form to be completed for medicaid SIGNATURE: ROLF Kulkarni PATIENT NAME: Javier Dickson DATE: December 28, 2023 TIME: 12:28 PM PAGER/CONTACT #: [phone] [facility] 12-27-2023 Note HNO ID: [id number] Author: KARLA GONZALES LSW Service: Care Management Author Type: Dockworker Type: Care Mgt Initial Assessment Filed: 12/27/2023 [...] Determined Advance Directives Current Advance Directive: None Industrial Relations Commissioner Attempted to Assist with AD Completion: Yes [...] General wellness, Be able to go home [place] Explained: [place] Given: No Reason Not Given: [...] No - Do you ever drink an eye-turkey pinner in the morning to relieve shakes? No Transport at Discharge: Transportation Arrangements: Uber/Lyft/[employer] (paid by [facility]) Needs Prior to Discharge: Needs Prior to [...] needed will accept o2. Patient's address is [address] [place] [address]. Sw tasked for referral to be placed to [facility] for home o2. Patient may need. Natalie/beatrice to follow. SIGNATURE: ROLF Kulkarni PATIENT NAME: Javier Dickson DATE: December 27, 2023 TIME: 12:19 PM CONTACT #: [phone] [facility] 12-27-2023 Note HNO ID: [id number] Author: ?, ?, ? Service: ? Author Type: Director Social Welfare Type: Plan of Care Filed: 12/27/2023 12:20 Note Text: PHARMACY MEDICATION REVIEW Patient Name: Javier Dickson : 1970 The following medications were updated within the [place] medication list: Medications ADDED to [place] medication list Medications CHANGED on [place] medication list Medications REMOVED from [place] medication list Additional comments: I was able to talk with the pt. about his home medications. He verified to me the 3 medications recorded below on the [place] list. I found these medications filled via [employer] e-script. I have not added, removed or changed any [place] medications. [facility] Required follow up actions for nursing: Medication history completed by Historian. No nursing follow up required. The below information represents the best possible medication history: Yes Medication history completed by: Director Social Welfare: Ranjith Anand (Drafter) Source of history: Patient: Reliability of source: Appears reliable, clearly identified: Medication name, Medication dose, Medication route, and Medication frequency and Pharmacy records: Epic [facility]script [facility] Medication nonadherence identified: No barriers noted Reconciliation completed: No, pharmacist not yet reviewed Patient interested in Bedside Delivery Services or using OP Pharmacy at discharge? Unable to assess Preferred outpatient pharmacy: [id number] [place] [address] [address] [facility] [phone] [facility] [place] [address] Allergies: No Known Allergies Prior to Admission [...] once daily. Facility-Administered Medications: None Ranjith Anand (Drafter) phone [phone] 12/27/2023 [facility] 12-27-2023 Note HNO ID: [id number] Author: JOHN POWELL MD Service: Critical Care [...] cooperative. CURRENT MEDICA (more content not included)... [facility] 12-27-2023 Note HNO ID: [id number] Author: JOHN POWELL MD Service: Critical Care Author Type: Physician Type: Progress Notes Filed: 12/27/2023 12:17 Note Text: [facility] STAFF PHYSICIAN NOTE OF PERSONAL INVOLVEMENT IN [...] well today without BIPAP consider transfer to [facility] - Needs outpatient follow up as was [...] [facility] DATE of SERVICE: 12/27/2023 [facility] 12-25-2023 Telephone encounter Note Made Several attempts to call Pt to Schedule an AUTOMOBILE UPHOLSTERER APPRENTICE Appt. And NO ANSWER @ [phone] the contact number VM has not been set-Up so I am unable to Leave a Message. Thank You [facility] 12-25-2023 Miscellaneous Notes Made Several attempts to call Pt to Schedule an AUTOMOBILE UPHOLSTERER APPRENTICE Appt. And NO ANSWER @ [phone] the contact number VM has not been set-Up so I am unable to Leave a Message. Thank You Name of Caller: Javier Contact Reason for Appointment: Javier submitted an online request on 12/21/23 regarding a call back to get scheduled for a AUTOMOBILE UPHOLSTERER APPRENTICE appt for Dx: COPD Exacerbation (11/13/23 [facility]). Javier states he would like to get scheduled for an apt [place]. Javier states he is available for call back anytime. Please contact Javier and advise. Office Name: [facility] Medication Refills need, if any: N/A Medication Name: N/A documented in this encounter [facility] 12-25-2023 Telephone encounter Note Name of Caller: Javier Contact Reason for Appointment: Javier submitted an online request on 12/21/23 regarding a call back to get scheduled for a AUTOMOBILE UPHOLSTERER APPRENTICE appt for Dx: COPD Exacerbation (11/13/23 [facility]). Javier states he would like to get scheduled for an apt [place]. Javier states he is available for call back anytime. Please contact Javier and advise. Office Name: [facility] Medication Refills need, if any: N/A Medication Name: N/A [facility] 11-28-2023 History of Presen t illness Narrative Made 2 attempts to call patient. Left message for patient to return call. If patient returns call, pleased ask the questions and schedule a hospital follow up appointment. Please send letter also requesting patient call us for scheduling. Thanks! Printed letter and placed in the mail documented in this encounter [facility] 11-27-2023 History of Presen t illness Narrative Images from the original note were not included. Outreach made within 2 business days of discharge: yes Patient: Javier Dickson Patient : 1970 Reason for Admission: RSV Bronchiolitis Discharge Date: 11/23/23 Discharge department/facility: [facility] Spoke with: Attempted to call patient. Left [...] RSV Bronchiolitis Discharge Date: 11/23/23 Discharge department/facility: [facility] Spoke with: Attempted to call patient. Left [...] Currently Viewing Encounter Summary Source Comments - [facility] In the event this information is protected [...] (HCC) Procedures NA [address] [place] [address] Reason for Visit - Auth/Cert (Routine) Referral ID Status Reason Start Date Expiration Date Visits Requested Visits Authorized [id number] 1 1 Encounter Details Encounter Details Date Type Department Care Team (Latest Contact Info) Description 11/13/2023 4:34 AM EST - 11/23/2023 6:24 PM EST Hospital Encounter [place] [address] [place], [place] [id number] John Birmingham MD 1 [place] [address] Current, Dianna, DO 1 [place], [place] [id number] Jill Shin MD [address] [place], [place] [id number] Phan Huston MD 1 [place], [place] [id number] Zita Garvin MD 1 [place], [place] [id number] Davion Suggs MD 1 [facility] [address] [place], [place] [id number] COPD exacerbation (HCC) [J44.1] Discharge Disposition: Home [...] place to sleep or slept in a long-term (including now)? No 11/16/2023 Social History Area Deprivation Index Answer Date Recorded National Score (1-100), lower number is lower risk 95 11/14/2023 State Score (1-10), lower number is lower risk 9 11/14/2023 Data from: https://www.neighborhoodatlas.wa edilberto[facility]/. Last address used for calculation [address] [...] Attending Provider: Davion Suggs MD Primary Service: DE STEFFEN PENA MY CONDITION AT DISCHARGE: Stable [...] right basilar patchy opacity favoring infection. MRSA eeets-avcmykqt-xeudpcu with Bactroban. Legionella pneumococcal antigen negative. Completed [...] and prn Albuterol. Needs outpatient follow-up with agile coach-he was to follow-up with the agile coach in [facility] 5. Tobacco use: Reports he he [...] address listed as his home address in [facility] [place] [facility]; he knows he can get to his son's friend house from there which is around the corner. At discharge he will be given home-going medications from our pharmacy. He has been recommended to follow-up with PCP in a week and with agile coach. He has been recommended to have follow-up [...] pre-hospital diet Follow Up Appointments Follow-Up Appointment Chinese Medicine Practitioner regarding follow-up on COPD exacerbation When: In 2 weeks Betsy Cristina MD [phone] COUNTS INCLUDE 234 BEDS AT [facility] [address] PCP Requested Referral Follow-Up Appointment - Your PCP When: In 1 week Patient/Parents to call for appointment?: Yes Carlyle Garcia MD [phone] [facility] [address] PCP Requested Referral Follow-Up Appointment - Your [...] right basilar patchy opacity favoring infection. MRSA okilk-hnsypmub-qxsuxho with Bactroban. Legionella pneumococcal antigen negative. Completed [...] and prn Albuterol. Needs outpatient follow-up with agile coach-he was to follow-up with the agile coach in [facility] 5. Tobacco use: Reports he he [...] address listed as his home address in [place]; he knows he can get to his son's friend house from there which is around the corner. At discharge he will be given home-going medications from our pharmacy. He has been recommended to follow-up with PCP in a week and with agile coach. He has been recommended to have follow-up chest Malnutrition Diagnosis supported by Registered Dietitian:Severe Protein-Calorie Malnutrition Based on: Subcutaneous Fat Loss, Muscle Loss Assessment: I have reviewed the result of the malnutrition assessment and plan and agree Plan: Diet, Supplements, Diet Education Treatment Team: Attending Provider: Davion Suggs MD Primary Service: [facility] Transitions of Care Critical Issues: IMAGING FOLLOW-UP: Chest x-ray in 6 weeks SPECIALIST FOLLOW-UP: Dr. Bush, agile coach. Addendum- referred to Dr Olivares (wanted a agile coach in [place]) CARLOS MEDICATION CHANGES: Trelegy Ellipta and albuterol as needed prescribed LABS AND PROCEDURES PENDING AT DISCHARGE: No pending results. FOLLOW-UP APPOINTMENTS ALREADY SCHEDULED WITH A [facility] PROVIDER: No future appointments. ALLERGIES No Known [...] Your Medications These medications were sent to [facility] [address] [place] [address] Hours: Monday-Monday, 8am-7pm, Monday 9am-1pm albuterol HFA [...] Management, and RN I have performed the uwct-vs-rofa and relevant services for a total of [...] wheezing/shortness of breath. 6.7 g 0 11/23/2023 uephwcdfpem-pnrgkfdhp-hphddpxn (TRELEGY ELLIPTA) 100-62.5-25 mcg inhalation powder Inhale [...] a day. 10.2 g 0 11/17/2023 11/17/2023 fjayzitezlt-muewxxmqh-ozdidtof (TRELEGY ELLIPTA) 100-62.5-25 mcg inhalation powder Inhale 1 Puff as instructed once daily. 60 Each 0 11/17/2023 11/23/2023 albuterol HFA (PROVENTIL HFA, VENTOLIN HFA) 90 mcg/actuation inhaler Inhale 2 Puffs as instructed every 4 hours as needed for wheezing/shortness of breath. 6.7 g 0 Noted, covering for PCP. documented in this encounter [facility] 11-27-2023 Note Outreach made within 2 business days of discharge: yes Patient: Javier Dickson Patient : 1970 Reason for Admission: RSV Bronchiolitis Discharge Date: 11/23/23 Discharge department/facility: [facility] Spoke with: Attempted to call patient. Left [...] RSV Bronchiolitis Discharge Date: 11/23/23 Discharge department/facility: [facility] Spoke with: Attempted to call patient. Left [...] Currently Viewing Encounter Summary Source Comments - [facility] In the event this information is protected [...] (HCC) Procedures NA [address] [place] [address] Reason for Visit - Auth/Cert (Routine) Referral ID Status Reason Start Date Expiration Date Visits Requested Visits Authorized [id number] 1 1 Encounter Details Encounter Details Date Type Department Care Team (Latest Contact Info) Description 11/13/2023 4:34 AM EST - 11/23/2023 6:24 PM EST Hospital Encounter [place] [address] [place], [place] [id number] John Birmingham MD 1 [place] [address] Dianna Ponce DO 1 [place] [address] Jill Shin MD [address] [place], [place] [phone] Phan Huston MD 1 [place], [place] [phone] Zita Garvin MD 1 [place], [place] [phone] Davion Suggs MD 1 [facility] [address] [place], [place] [id number] COPD exacerbation (HCC) [J44.1] Discharge Disposition: Home Social History - documented as of this encounter Social History Tobacco Use Types Packs/Day Years Used Date Smoking Tobacco: Every Day Cigarettes 1 Social History Alcohol Use Standard Drinks/Week Comments Not Currently 0 (1 standard drink = 0.6 oz pure alcohol) Social History Overall Financial Resource Strain (CARDIA) Answer Date Rec (more content not included)... [facility] 11-23-2023 Note HNO ID: [id number] Author: ANILA RUTH CPhT Service: Pharmacy Author Type: Atm Mechanic Type: Plan of Care Filed: 11/23/2023 18:02 Note Text: PHARMACY BEDSIDE DELIVERY SERVICE Patient Name: Javier Dickson The marked outpatient medications were Filled at: [facility] and delivered to the patient's bedside to JUD[facility] Medication List START taking these medications ADVAIR [...] Puffs as instructed once daily. Anila Flory [facility] PAGER: Anila Ruth [phone] 11/23/23 6:02 PM November 23, 2023 6:02 PM [facility] 11-23-2023 Note HNO ID: [id number] Author: DAVION SUGGS MD Service: Hospital Medicine Author Type: Physician Type: Progress Notes Filed: 11/23/2023 16:35 Note Text: Documentation Query Based on your medical judgment of the clinical indicators outlined below, please clarify the condition: (Please type X next to your response and sign) Clinical Indicators: 11/21 Mechanical Design Engineer Visit Type: Length of Stay Patient reports [...] Continue current diet Supplements: Magic Cup, Boost [facility] Discharge Recommendations: Diet;Oral Supplements Diet: regular [...] out for this encounter Other, please specify [facility] 11-23-2023 Note HNO ID: [id number] Author: KAREN ALVA RN Service: Care Management [...] the address. He is declining emergency overnight long-term information , but was agreeable to receiving [...] home is to the address listed in [place], he stated it was just around the corner. He states we can use the listed address for the cab ride and he will help navigate the cable engineer outside plant. Placed cab on standby, please call [employer] when ready for dc. Asked patient if he would like a food bank ticket, he was agreeable. Please stop at the motel front desk attendant for his food care package. Discussed case with [facility] AM Rios Duarte and bioethics Neptali Mai. No other CM needs identified at this time. SIGNATURE: Karen Alva RN PATIENT NAME: Javier Dickson DATE: November 23, 2023 TIME: 4:14 PM CONTACT #: [phone] [facility] 11-23-2023 Note HNO ID: [id number] Author: SHREYA TSE RN Service: Nursing Author Type: Registered Nurse Type: Nursing Progress Note Filed: 11/23/2023 14:47 Note Text: SpO2 on RA while at rest was 95%. SpO2 on RA with exertion was 90%. [facility] 11-23-2023 Note HNO ID: [id number] Author: DAVION SUGGS MD Service: Hospital Medicine Author Type: Physician Type: Progress Notes Filed: 11/23/2023 12:22 Note Text: DEPARTMENT OF HOSPITAL MEDICINE PROGRESS NOTE SERVICE DATE: 11/23/2023 SERVICE TIME: 12:18 PM Hospital Medicine/Primary Attending: Davion Suggs MD NIGHT AND WEEKEND COVERAGE: After 7pm please page [phone] CHIEF COMPLAINT: RSV bronchiolitis. Pneumonia. SUBJECTIVE: Reports [...] Patient Active Hospital Problem List: COPD exacerbation ([facility]) (11/13/2023) Drug abuse ([facility]) (01/14/2021) RSV (acute bronchiolitis due to respiratory syncytial virus) (11/13/2023) Sepsis with encephalopathy without septic shock ([facility]) (11/13/2023) Acute respiratory failure with hypoxia and hypercapnia ([facility]) (11/13/2023) Respiratory acidosis (11/13/2023) Pneumonia of right lower lobe due to infectious organism (11/16/2023) Tobacco abuse (11/16/2023) Tobacco abuse counseling (11/16/2023) On deep vein thrombosis (DVT) prophylaxis (11/16/2023) Marijuana abuse (11/17/2023) Severe protein-calorie malnutrition ([facility]) (11/22/2023) ASSESSMENT: Mr. Dickson presented with shortness of breath, productive cough and chest pain. 1. RSV bronchiolitis and pneumonia: Chest x-ray right basilar patchy opacity favoring infection. Treated with supportive treatment, DuoNeb, Pulmicort and albuterol as needed, Acapella and I-S as well as 5-day steroid burst. 2. Suspected community-acquired bacterial pneumonia: Chest x-ray right basilar patchy opacity favoring infection. MRSA qqxrx-tbfqfhnl-ockitcu with Bactroban. Legionella pneumococcal antigen negative. Completed [...] and prn Albuterol. Needs outpatient follow-up with agile coach-he was to follow-up with the agile coach in [facility] 5. Tobacco use: Reports he he [...] and Care Ma (more content not included)... [facility] 11-23-2023 Telephone encounter Note Noted. [facility] Work Phone: 11-23-2023 Miscellaneous Notes Noted. Name of caller: Colleen Contact phone number: [phone] Relationship to Patient: [facility] Provider: Dr. Kelsi Batista [place] [facility] Chief Complaint/Reason for Call: The patient is being seen at [facility] for SOB right now. If you have any questions, please callColleen Best time of day caller can be reached: 4:30 pm Patient advised that office/PCP has 24-48 business hours to return their call: Yes documented in this encounter [facility] 11-22-2023 Note HNO ID: [id number] Author: DAVION SUGGS MD Service: Hospital Medicine Author Type: Physician Type: Progress Notes Filed: 11/23/2023 07:56 Note Text: DEPARTMENT OF HOSPITAL MEDICINE PROGRESS NOTE SERVICE DATE: 11/22/2023 SERVICE TIME: 2:14 PM Hospital Medicine/Primary Attending: Davion Suggs MD NIGHT AND WEEKEND COVERAGE: After 7pm please page [phone] CHIEF COMPLAINT: RSV bronchiolitis/pneumonia. Bacterial pneumonia. SUBJECTIVE: [...] List: COPD exacerbation ([facility]) (11/13/2023) Drug abuse ([facility]) (01/14/2021) RSV (acute bronchiolitis due to respiratory syncytial virus) (11/13/2023) Sepsis with encephalopathy without septic shock ([facility]) (11/13/2023) Acute respiratory failure with hypoxia and hypercapnia ([facility]) (11/13/2023) Respiratory acidosis (11/13/2023) Pneumonia of right [...] right basilar patchy opacity favoring infection. MRSA jyxxy-eghtvqof-lovpysl with Bactroban. Legionella pneumococcal antigen negative. Completed [...] Ellipta and. Albuterol. Needs outpatient follow-up with agile coach-he was to follow-up with the agile coach in [facility] 5. Tobacco use: Reports he he [...] now; he lef (more content not included)... [facility] 11-22-2023 Note HNO ID: [id number] Author: COLLEEN GRANT RN Service: Care Management [...] again to listed number for Neptali (Son) [phone] - no answer, VM with callback number left. 12:13 PM CM attempted to call previous listed number for vipul Mendez -[phone] - number with no ring, and no option to leave VM. 12:15 PM CM called listed home number [phone] (as patient reports that son has his personal phone) a "Ricardo" answered the phone and reports this is the wrong number. 12:20 PM CM attempted to call PCP "Carlyle Garcia" [phone] in attempts to find alternate contact and left callback number. 12:22 PM Callback from PCP office - talked to "Rose Mary" who reports patient has no address listed at their office, and is no longer a patient - now is listed as "new patient" with [facility] Cervantes: Luis E Dolan - [phone]. 12:46 PM CM attempted to call [phone] - a number provided by Rose Mary that was listed for both patient and son- no ring, VM left with callback number. Per Rose Mary patient has not been active with them since July of 2022. 12:48 PM SW provided a number to try to call Andrea at [phone] - number inactive. 12:50 PM Attempted to call [phone] (a number SW provided for a possible patient contact) no ARASELI dubon with callback left. 12:52 PM CM called [phone] a number given for Benny Cervantes - reported to be new PCP - in attempts to find address, or contact information. [phone] (already attempted at 12:46) PCP office reports patient has no address listed - in their system listed [id number] 1:54 PM Received text from [phone] "This is not Andrea please stop calling". [...] that patient does not. CM offered Homeless long-term in [place] that can accept patients with O2 - patient reports he wouldn't know what to do if sent there and that he has never been in a Homeless Custodial in his life. Reports he does not [...] search: number listed for son "Andrea Dickson" [phone]. CM called with no answer and no option to leave VM. Patient will need address, vs placement to Homeless long-term that can accommodate O2. Home O2 delivery, and cab at time of discharge. Bedside RN can call [employer] at time of discharge. aware. Ethics consulted. CM to follow for transitional needs. SIGNATURE: Colleen Grant RN PATIENT NAME: Javier Dickson DATE: November 22, 2023 TIME: 11:00 AM PAGER/CONTACT #: [phone] [facility] 11-22-2023 Telephone encounter Note Name of caller: Colleen Contact phone number: [phone] Relationship to Patient: [facility] Provider: Dr. Kelsi Batista Practice[place] [facility] Chief Complaint/Reason for Call: The patient is being seen at [facility] for SOB right now. If you have any questions, please call, Colleen Best time of day caller can be reached: 4:30 pm Patient advised that office/PCP has 24-48 business hours to return their call: Yes [facility] 11-21-2023 Note HNO ID: [id number] Author: ZITA GARVIN MD Service: Hospital Medicine Author Type: Physician Type: Progress Notes Filed: 11/21/2023 15:10 Note Text: DEPARTMENT OF HOSPITAL MEDICINE PROGRESS NOTE SERVICE DATE: 11/21/2023 Hospital Medicine/Primary Attending: Zita Nunez MD NIGHT AND WEEKEND COVERAGE: After 7pm please page [phone] SUBJECTIVE: follow up on acute respiratory failure due to PNA Continues to improve Room air at rest , continue to require O2 with activity up to 4 L NC But feels better today Plan of care discussed with patient SW /manager wound care continues to follow to find his Son [...] . Will repeat Ambulatory pulse Ox tomorrow, assistant finance manager follows /patient is unable to provide [...] office afterwards to establish care with a agile coach. Advir and albuterol ordered -Polysubstance abuse Urine is positive for cocaine , amphetamine , cannabinoids Counseled to quit -Patient did mention decreased vision in right eye for >[address] head ordered and negative for acute findings Patient advised to follow up with ophthalmology as outpatient ,could be cataract . -Per manager wound care : another oxygen company ([employer]) can provide oxygen for ~$40 per month. They left a portable tank at bedside (unable to deliver concentrator without address). If he does not qualify for O2 tmrw [employer] can diogo (more content not included)... [facility] 11-21-2023 Note HNO ID: [id number] Author: COLLEEN GRANT RN Service: Care Management [...] contact - patient defers CM to use [employer]. CM explained cannot use personal social media [...] not qualify for O2 tmrw 11/22 - [facility] portable tank back - if patient does qualify and patient can provide a home address then [employer] can deliver concentrator at that time. Patient will need address vs placement to Homeless long-term that can accommodate O2. Home O2 delivery, and cab at time of discharge. Bedside RN can call [employer] when portable O2 able to be delivered. CM to follow for transitional needs. SIGNATURE: Colleen Grant RN PATIENT NAME: Javier Dickson DATE: November 21, 2023 TIME: 2:04 PM PAGER/CONTACT #: [phone] [facility] 11-20-2023 Note HNO ID: [id number] Author: ZITA GARVIN MD Service: Hospital Medicine Author Type: Physician Type: Progress Notes Filed: 11/20/2023 16:46 Note Text: DEPARTMENT OF HOSPITAL MEDICINE PROGRESS NOTE SERVICE DATE: 11/20/2023 Hospital Medicine/Primary Attending: Zita Nunez MD NIGHT AND WEEKEND COVERAGE: After 7pm please page [phone] SUBJECTIVE: follow up on acute respiratory failure [...] office afterwards to establish care with a agile coach. Advir and albuterol ordered -Polysubstance abuse Urine [...] NAME: Javier Dickson PAGER/CONTACT #: steffen mahajan [facility] 11-20-2023 Note HNO ID: [id number] Author: COLLEEN GRANT RN Service: Care Management Author Type: Registered Nurse Type: Care Mgt Progress Note Filed: 11/20/2023 15:29 Note Text: CARE MANAGEMENT PROGRESS NOTE SERVICE DATE: 11/20/2023 SERVICE TIME: 3:09 PM LOS: 7 days 12:15 PM Spoke to patient at bedside. [facility] have [facility] [...] contact. Per Eugenio, number for son in [place] is not correct. CM attempted number listed Neptali (Son) [phone] - no answer, VM left. 2:00 PM CM asked patient for another number for son - patient reports no other number, defers CM to use Facebook and search for "Fro-Man". CM unable to use Facebook to contact family/friends for patient. 2:07 PM CM attempted to call son's number listed in [place] ([phone]) which is inactive. 2:42 PM Sent referral to [facility]. 3:00 PM CM spoke to patient again, patient does not have a mobile phone on him. Patient suggested CM try messaging "Aby" on Facebook - CM explained unable to use personal social media to contact family/friends for patient. CM offered Homeless long-term information, patient reports he does not need [...] will need address vs placement to Homeless long-term that can accommodate O2. Home O2 delivery, and cab at time of discharge. Bedside RN can call [employer] when portable O2 able to be delivered. CM to follow for transitional needs. SIGNATURE: Colleen Grant RN PATIENT NAME: Javier Dickson DATE: November 20, 2023 TIME: 3:09 PM PAGER/CONTACT #: [phone] [facility] 11-19-2023 Note HNO ID: [id number] Author: ZITA GARVIN MD Service: Hospital Medicine Author Type: Physician Type: Progress Notes Filed: 11/19/2023 14:23 Note Text: DEPARTMENT OF HOSPITAL MEDICINE PROGRESS NOTE SERVICE DATE: 11/19/2023 Hospital Medicine/Primary Attending: Zita Nunez MD NIGHT AND WEEKEND COVERAGE: After 7pm please page [phone] SUBJECTIVE: follow up on acute respiratory failure [...] office afterwards to establish care with a agile coach. Advir and albuterol ordered -Polysubstance abuse Urine [...] Javier Dickson PAGER/CONTACT #: steffen team keyshawn [facility] 11-18-2023 Note HNO ID: [id number] Author: ZITA GARVIN MD Service: Hospital Medicine Author Type: Physician Type: Progress Notes Filed: 11/18/2023 15:34 Note Text: DEPARTMENT OF HOSPITAL MEDICINE PROGRESS NOTE SERVICE DATE: 11/18/2023 Hospital Medicine/Primary Attending: Zita Nunez MD NIGHT AND WEEKEND COVERAGE: After 7pm please page [phone] SUBJECTIVE: follow up on acute respiratory failure [...] office afterwards to establish care with a agile coach. Advir and albuterol ordered -Polysubstance abuse Urine is positive for cocaine , amphetamine , cannabinoids Counseled to quit VTE Prophylaxis: as appropriate Disposition: Home Plan of care discussed with: Provider, RN, Patient SIGNATURE: Zita Garvin MD PATIENT NAME: Javier Dickson PAGER/CONTACT #: [facility] keyshawn [facility] 11-17-2023 Note HNO ID: [id number] Author: ZITA GARVIN MD Service: Hospital Medicine Author Type: Physician Type: Progress Notes Filed: 11/17/2023 15:32 Note Text: DEPARTMENT OF HOSPITAL MEDICINE PROGRESS NOTE SERVICE DATE: 11/17/2023 Hospital Medicine/Primary Attending: Zita Nunez MD NIGHT AND WEEKEND COVERAGE: After 7pm please page [phone] SUBJECTIVE: follow up on acute respiratory failure [...] office afterwards to establish care with a agile coach. -Polysubstance abuse Urine is positive for cocaine , amphetamine , cannabinoids Counseled to quit VTE Prophylaxis: as appropriate Disposition: Home Plan of care discussed with: Provider, RN, Patient SIGNATURE: Zita Garvin MD PATIENT NAME: Javier Dickson PAGER/CONTACT #: steffen team keyshawn [facility] 11-17-2023 Note HNO ID: [id number] Author: COLLEEN GRANT RN Service: Care Management [...] charted desat study 11/17. [facility]. Patient would need O2 orders, and O2 delivery. CM to follow for transitional needs. SIGNATURE: Colleen Grant RN PATIENT NAME: Javier Dickson DATE: November 17, 2023 TIME: 12:49 PM PAGER/CONTACT #: [phone] [facility] 11-17-2023 Note HNO ID: [id number] Author: DEANNA FLORES APRN.CNP Service: Pulmonary Disease [...] (DUONEB) 3 mL INHALATION QID Deanna Flores APRN.POP SINGER 3 mL at 11/17/23 0759 budesonide 0.5 mg/2 mL 0.5 mg (PULMICORT) 0.5 mg INHALATION BID Deanna Flores APRN.POP SINGER 0.5 mg at 11/17/23 0758 senna-docusate 8.6-50 mg 1 tablet (SENNA-S) 1 tablet ORAL BID PRN Zita Garvin MD melatonin 3 mg tab(s) 3 mg ORAL AT BEDTIME PRN Zita Garvin MD ondansetron (PF) 4 mg injection (ZOFRAN) 4 mg INTRAVENOUS q 6 H PRN Kasia Gudino APRN.POP SINGER 4 mg at 11/15/23 0513 doxycycline hyclate 100 mg cap(s) (VIBRAMYCIN) 100 mg ORAL q 12 H 6a/6p Meryl Bains APRN.POP SINGER 100 mg at 11/17/23 0600 cefTRIAXone iv piggyback 2 g in dextrose (iso-osmotic) 50 mL (ROCEPHIN) 2 g INTRAVENOUS q 24 H Kasia Gudino APRN.POP SINGER Stopped at 11/17/[address] 40 mg tab(s) (PROTONIX) 40 mg ORAL DAILY (6 AM) Kasia Gudino APRN.POP SINGER 40 mg at 11/17/23 0600 acetaminophen 650 mg tab(s) (TYLENOL) 650 mg ORAL q 4 H PRN Kasia Gudino APRN.POP SINGER 650 mg at 11/14/23 2000 NaCl 0.9% iv flush bag 20 mL INTRAVENOUS PRN Kasia Gudino APRN.POP SINGER Stopped at 11/14/23 0024 enoxaparin 40 mg injection (LOVENOX) 40 mg SUBCUTANEOUS q 24 HR Kasia Gudino APRN.POP SINGER 40 mg at 11/16/23 1224 sodium chloride 0.9 % (flush) 2-10 mL (BD POSIFLUSH) 2-10 mL INTRAVENOUS DIRECTED PRN Kasia Gudino APRN.POP SINGER And perflutren lipid microspheres 1.1 mg/mL 1.3 mL injection (DEFINITY) 1.3 mL INTRAVENOUS DIRECTED PRN Kasia Gudino APRN.POP SINGER INTAKE AND OUTPUT No intake or output [...] wean O2 as (more content not included)... [facility] 11-16-2023 Note HNO ID: [id number] Author: FRANCK REYES LSW Service: Care Management Author Type: Dockworker Type: Care Mgt Initial Assessment Filed: 11/16/2023 [...] Patient Goal(s): Be able to go home [place] Explained: [place] Given: No Reason Not Given: [...] TIME: 3:12 PM CONTACT #: [phone] [facility] 11-16-2023 Note HNO ID: [id number] Author: ZITA GARVIN MD Service: Hospital Medicine Author Type: Physician Type: Progress Notes Filed: 11/16/2023 14:38 Note Text: DEPARTMENT OF HOSPITAL MEDICINE PROGRESS NOTE SERVICE DATE: 11/16/2023 SERVICE TIME: 2:31 PM Hospital Medicine/Primary Attending: Zita Nunez MD NIGHT AND WEEKEND COVERAGE: After 7pm please page [phone] SUBJECTIVE: follow up on acute respiratory failure [...] office afterwards to establish care with a agile coach. -Polysubstance abuse Urine is positive for cocaine , amphetamine , cannabinoids Counseled to quit VTE Prophylaxis: as appropriate Disposition: Home Plan of care discussed with: Provider, RN, Patient SIGNATURE: Zita Garvin MD PATIENT NAME: Javier Dickson DATE: November 16, 2023 TIME: 2:31 PM PAGER/CONTACT #: steffen mahajan [facility] 11-16-2023 Note HNO ID: [id number] Author: DEANNA FLORES APRN.CNP Service: Pulmonary Disease Author Type: Nurse Practitioner Type: Progress Notes Filed: 11/16/2023 11:57 Note Text: PULMONARY PROGRESS NOTE [facility] SERVICE DATE: November 16, 2023 SERVICE TIME: [...] INTRAVENOUS q 6 H PRN Kasia Gudino APRN.POP SINGER 4 mg at 11/15/23 0513 predniSONE 40 mg tab(s) (DELTASONE) 40 mg ORAL DAILY Kasia Gudino APRN.POP SINGER 40 mg at 11/16/23 0812 doxycycline hyclate 100 mg cap(s) (VIBRAMYCIN) 100 mg ORAL q 12 H 6a/6p Meryl Bains APRN.POP SINGER 100 mg at 11/16/23 0523 ipratropium-albuterol 3 mL nebulizer solution (DUONEB) 3 mL INHALATION TID Kasia Gudino APRN.POP SINGER 3 mL at 11/15/23 1155 cefTRIAXone iv piggyback 2 g in dextrose (iso-osmotic) 50 mL (ROCEPHIN) 2 g INTRAVENOUS q 24 H Kasia Gudino APRN.POP SINGER 100 mL/hr at 11/16/23 0812 2 g at 11/16/[address] 40 mg tab(s) (PROTONIX) 40 mg ORAL DAILY (6 AM) Kasia Gudino APRN.POP SINGER 40 mg at 11/16/23 0523 acetaminophen 650 mg tab(s) (TYLENOL) 650 mg ORAL q 4 H PRN Kasia Gudino APRN.POP SINGER 650 mg at 11/14/23 2000 NaCl 0.9% iv flush bag 20 mL INTRAVENOUS PRN Kasia Gudino APRN.POP SINGER Stopped at 11/14/23 0024 enoxaparin 40 mg injection (LOVENOX) 40 mg SUBCUTANEOUS q 24 HR Kasia Gudino APRN.POP SINGER 40 mg at 11/14/23 0946 albuterol 2.5 mg /3 mL (0.083 %) 2.5 mg (PROVENTIL) 2.5 mg INHALATION q 4 H PRN Kasia Gudino APRN.POP SINGER sodium chloride 0.9 % (flush) 2-10 mL (BD POSIFLUSH) 2-10 mL INTRAVENOUS DIRECTED PRN Kasia Gudino APRN.POP SINGER And perflutren lipid microspheres 1.1 mg/mL 1.3 mL injection (DEFINITY) 1.3 mL INTRAVENOUS DIRECTED PRN Kasia Gudino APRN.POP SINGER INTAKE AND OUTPUT Intake/Output Summary (Last 24 [...] Pulmicort. Add an (more content not included)... [facility] 11-15-2023 Note HNO ID: [id number] Author: Kasia Gudino APRN.POP SINGER Service: Critical Care Author Type: Nurse Practitioner [...] patientJavier with DEBORA Helm (Steffen). Transferred to: [facility] with tele New Physician Attending: Dr. Huston (Steffen) Kasia Gudino APRN.CNP November 15, 2023 11:34 AM [facility] 11-15-2023 Note HNO ID: [id number] Author: Jill Shin MD Service: Pulmonary Disease Author Type: Physician Type: Progress Notes Filed: 11/15/2023 11:13 AM Note Text: [facility] STAFF PHYSICIAN NOTE OF PERSONAL INVOLVEMENT IN CARE Attending Note I have personally performed a face to face assessment of the patient and have reviewed the SENIOR QUALITY TECHNICIAN/resident note and documentation. I personally participated in [...] INTRAVENOUS q 6 H PRN Chuyita Newby APRN.POP SINGER 4 mg at 11/15/23 0513 [START ON 11/16/2023] predniSONE 40 mg tab(s) (DELTASONE) 40 mg ORAL DAILY Kasia Gudino APRN.POP SINGER ipratropium-albuterol 3 mL nebulizer solution (DUONEB) 3 mL INHALATION TID Jill Shin MD 3 mL at 11/15/23 0919 cefTRIAXone iv piggyback 2 g in dextrose (iso-osmotic) 50 mL (ROCEPHIN) 2 g INTRAVENOUS q 24 H Kasia Gudino APRN.POP SINGER 100 mL/hr at 11/15/23 0753 2 g at 11/15/[address] 40 mg tab(s) (PROTONIX) 40 mg ORAL DAILY (6 AM) Chuyita Newby APRN.POP SINGER 40 mg at 11/15/23 0448 acetaminophen 650 mg tab(s) (TYLENOL) 650 mg ORAL q 4 H PRN Chuyita Newby APRN.POP SINGER 650 mg at 11/14/231999 doxycycline 100 mg [...] AST 16 ALT 24 ABG: Invalid input(s): "[id number]" Chest imaging personally reviewed MRSA + NOTED [...] and Airways Line Duration Peripheral 11/13/23 0750 [facility] Right Forearm 20 Gauge 2 days Peripheral 11/13/23 1130 [facility] Short Left Forearm 20 Gauge 1 day [...] neg; cxr no (more content not included)... [facility] 11-14-2023 Note HNO ID: [id number] Author: REBA JONAS RPh Service: Pharmacy Author Type: Pharmacist Type: Plan of Care Filed: 11/22/2023 10:21 Note Text: PHARMACY MEDICATION REVIEW Patient Name: Javier Dickson : 1970 Addendum: medication history reviewed by pharmacist 11/22/2023 Reba Jonas RPh The following medications were updated within the [facility] medication list: Medications ADDED to [facility] medication list Medications CHANGED on [facility] medication list Medications REMOVED from [facility] medication list gabapentin (NEURONTIN) 100 mg capsule [...] I have removed 6 medications from the [facility] list and I did not find any medications filled for pt. via [employer] e-script. I have not added or changed any [facility] medications . Pt. states financial cost has been one of the main reasons he has not taken RX medications and would welcome any help with this in the future. He has used [facility] in the past but if he can get medications from [facility], he would prefer that. Required follow up actions for nursing: Medication history completed by Historian. No nursing follow up required. The below information represents the best possible medication history: Yes Medication history completed by: Director Social Welfare: Ranjith Anand ([employer]) Source of history: Patient: Reliability of source: Appears reliable, clearly identified: Medication name Medication nonadherence identified: Cost Reconciliation completed: Yes Completed by: CARLOTA All [facility] medications addressed by CARLOTA Patient interested in Bedside Delivery Services or using [facility] at discharge? Yes. Discharge Pharmacy Updated Preferred outpatient pharmacy: [facility] Allergies: No Known Allergies None Ranjith Anand ([employer]) phone [phone] 11/14/2023 [facility] 11-14-2023 Note HNO ID: [id number] Author: aKsia Gudino APRN.CNP Service: Critical Care Author Type: Nurse Practitioner Type: Plan of Care Filed: 11/14/2023 11:35 AM Note Text: Voicemail left for patient's son to return call to unit for clinical update. Kasia Gudino APRN.CNP November 14, 2023 11:35 AM [facility] 11-14-2023 Note HNO ID: [id number] Author: Jill Shin MD Service: Pulmonary Disease Author Type: Physician Type: Progress Notes Filed: 11/14/2023 10:50 AM Note Text: [facility] STAFF PHYSICIAN NOTE OF PERSONAL INVOLVEMENT IN CARE Attending Note I have personally performed a face to face assessment of the patient and have reviewed the SENIOR QUALITY TECHNICIAN/resident note and documentation. I personally participated in [...] infusion 100 mL/hr INTRAVENOUS CONTINUOUS Kasia Gudino APRN.POP SINGER 100 mL/hr at 11/14/23 0805 100 mL/hr at 11/14/23 0805 pantoprazole 40 mg oral liquid (PROTONIX) 40 mg ORAL DAILY (6 AM) Kasia Gudino APRN.POP SINGER 40 mg at 11/14/23 0946 [START ON 11/15/2023] cefTRIAXone iv piggyback 2 g in dextrose (iso-osmotic) 50 mL (ROCEPHIN) 2 g INTRAVENOUS q 24 H Kasia Gudino APRN.POP SINGER doxycycline 100 mg in D5W 250 mL [...] AST 23 ALT 31 ABG: Invalid input(s): "[id number]" Chest imaging personally reviewed MRSA + NOTED [...] 20 Gauge 1 day Peripheral 11/13/23 0750 [facility] Right Forearm 20 Gauge 1 day Peripheral 11/13/23 1130 [facility] Short Left Forearm 20 Gauge <1 day [...] clinically significant de (more content not included)... [facility] 09-06-2023 Emergency department Note Nurse educated pt on inhaler use. Ramona Salas LPN 09/06/231701 [facility] 09-06-2023 Emergency department Note Nurse educated pt on inhaler use. Ramona Salas LPN 09/06/231701 EMERGENCY DEPARTMENT ENCOUNTER Pt Name: Javier Dickson Birthdate 1970 Date of evaluation: 09/06/2023 ED Provider: Danilo Hastings APRN - POP SINGER Patient seen independently within my scope of practice with an Emergency Medicine attending available for supervision. CHIEF COMPLAINT Insect bite Chief Complaint Patient presents with Insect Bite Pt has a residential real estate assistant bite to the left side of his [...] PM PATIENT REFERRED TO: Kelsi Batista MD [address] [place] [address], [address] [facility] [address] DISCHARGE MEDICATIONS: New Prescriptions ALBUTEROL 108 (90 [...] CNP 09/06/23 1646 documented in this encounter [facility] 09-06-2023 Physician Emergency department Note EMERGENCY DEPARTMENT ENCOUNTER Pt Name: Javier Dickson Birthdate 1970 Date of evaluation: 09/06/2023 ED Provider: YOCASTA Guajardo CNP Patient seen independently within my scope of practice with an Emergency Medicine attending available for supervision. CHIEF COMPLAINT Insect bite Chief Complaint Patient presents with Insect Bite Pt has a residential real estate assistant bite to the left side of his [...] tablet (1 tablet Oral Given 09/06/23 1638) [facility] MDM elements: The patient presented with [...] PM PATIENT REFERRED TO: Kelsi Batista MD [address] [place] [address], [address] [facility] [address] DISCHARGE MEDICATIONS: New Prescriptions ALBUTEROL 108 (90 [...] Emergency Medicine Provider YOCASTA Guajardo CNP 09/06/23 0517 [facility] 04-20-2022 Hospital Discharg John Ayala MD - [...] sent through Care Everywhere.SOB (Shortness of Breath) (Russian)Asthma or COPD: Using a Metered-Dose Inhaler (Russian)documented in this encounter [facility] Work Phone: Evaluation note Diagnosis COPD exacerbation (HCC)- Primary Obstructive chronic bronchitis with exacerbation Shortness of breath documented in this encounter [facility] Work Phone: Evaluation note* Diagnosis Screening for condition Screening for unspecified condition documented in this encounter [facility] Work Phone: Evaluation note* Diagnosis Insect bite of head, unspecified part, initial encounter- Primary Chronic obstructive pulmonary disease, unspecified COPD type (HCC) Insect bite of head Face, neck, and scalp except eye, insect bite, nonvenomous, without mention of infection [facility] Diagnosis Localized enlarged lymph nodes- Primary Enlargement of lymph nodes [facility] noteNo assessment information availableW[facility] Work Phone: Evaluation note* Diagnosis Chronic respiratory failure with hypoxia (HCC)- Primary Chronic obstructive pulmonary disease, unspecified COPD type (HCC) Bullous emphysema (HCC) Cigarette nicotine dependence without complication [facility] Diagnosis Mastodynia documented [facility] this [facility]* Diagnosis Mastodynia documented [facility]* Diagnosis Chronic respiratory failure with hypoxia (HCC) [facility]* Attachments The following attachments cannot be sent through Care Everywhere. * COPD Exacerbation, Adult ED (Russian) * COPD Diet (Russian) * Insect Bites and Stings Discharge Instructions (Russian) * Spider Bites (Russian) [facility] (narrative)No reason for referral information availableWSelect [facility] [place] Work Phone: Summary Purpose Family History No Family History Records FoundNo Family History Records FoundNo Family History Records FoundNo Family History Records FoundNo Family History Records FoundNo Family History Records FoundNo Family History Records FoundNo Family History Records Found Advance Directives No Advanced Directives Records FoundDocuments on File Type Date Recorded Patient Research Scholar Expl anation Advance Directive(s) 06/21/2020 12:07 PM Documents on File Type Date Recorded Patient Research Scholar Expl anation ACP-Advance Directive 04/20/2022 Latest Code [...] Everywhere. * Head Injury: Closed: General Info (Russian) * Lacerations: Liss (Russian) * Lacerations: Stitches (Russian) documented in this encounter Assessments Diagnosis Injury of head, initial encounter- Primary Laceration of scalp, initial encounter Homelessness Lack of housing Reason for Referral Specialty Diagnoses / Procedures Referred By Contac t Referred To Contact Family Medicine Diagnoses COPD exacerbation (HCC) Shortness of breath John Eddy MD [address] [place] [address] [facility] [address] [facility] [address] [place] [id number] Referral ID Status Reason Start Date Expiration Date V isits Requested Visits Authorized [id number] Open Specialty Services Required 04/20/2022 04/20/2023 1 1 Scheduling Instructions [facility] [address] [facility] [address] [place], [place] [address] Fx: [phone] Specialty Diagnoses / Procedures Referred By Contac t Referred To Contact CT IMAGING Diagnoses Localized enlarged lymph nodes Procedures CT CHEST W IVCON DIAGNOSTIC COMPUTED TOMOGRAPHY THORAX W/CONTRAST Timi Capellan MD [address] [facility] [address] [place] [address] [place] [id number] Referral ID Status Reason Start Date Expiration Date Visits Requested Visits Authorized [id number] Pending Review Auto-Generat ed Referral 02/13/2024 01/30/2025 1 1 Specialty Diagnoses / Procedures Referred By Contac t Referred To Contact Pulmonology Diagnoses Chronic respiratory failure with hypoxia (HCC) Procedures Complete PFT pre and post bronchodilator Emely Amin MD [address] [facility] [address] [place] [address] [address] [place] [address] Referral ID Status Reason Start Date Expiration Date V isits Requested Visits Authorized [id number] Authorized 04/29/2024 04/24/2025 1 1 Specialty Diagnoses / Procedures Referred By Contac t Referred To Contact Emely Amin MD [address] [place] [address] Referral ID Status Reason Start Date Expiration Date V isits Requested Visits Authorized [id number] Authorized 04/29/2024 04/28/2025 1 1 Referral ID Status Reason Start Date Expiration Date Visits Re quested Visits Authorized [id number] Closed 04/29/2024 04/24/2025 1 1 Chief Complaint and Reason for Visit Chief Complaint LABWORK Chief Complaint LABWORK CARE HOME LAB WORK Chief Complaint LABWORK CARE HOME LAB WORK CARE HOME LAB WORK Chief Complaint Admit Date LABWORK January 31, 2025 5:0 0am Additional Source Comments (unrecognized sect ion and content) No Status Records FoundNo Status Records FoundNo Status Records FoundNo Status Records FoundNo Status Records FoundNo Status Records FoundNo Status Records FoundNo Status Records Found INFORMATION SOURCE (unrecogn ized section and content) DATE CREATED AUTHOR 09/30/2019 [facility] DATE CREATED AUTHOR AUTHOR'S ORGANIZ ATION 01/15/2021 [facility] DATE CREATED AUTHOR AUTHOR'S ORGANIZ ATION 07/20/2022 [facility] DATE CREATED AUTHOR AUTHOR'S ORGANIZ ATION 08/18/2022 [facility] DATE CREATED AUTHOR AUTHOR'S ORGANIZ ATION 01/02/2024 [facility] DATE CREATED AUTHOR AUTHOR'S ORGANIZ ATION 01/30/2024 [facility] DATE CREATED AUTHOR AUTHOR'S ORGANIZ ATION 09/29/2024 [facility] [employer] [facility] DATE CREATED AUTHOR AUTHOR'S ORGANIZ ATION 09/12/2025 [facility] Source Comments (unrecognize d section and content) In the event this informatio n is protected by the Federal Confidentiality of Alcohol and Drug Abuse Patient Records regulations: The Federal rules restrict any use of the information to criminally investigate or prosecute any alcohol or drug abuse patient.[facility] the event this information is protected by the Federal Confidentiality of Alcohol and Drug Abuse Patient Records regulations: The Federal rules restrict any use of the information to criminally investigate or prosecute any alcohol or drug abuse patient.[facility] DaytonIn the event this information is protected by the Federal Confidentiality of Alcohol and Drug Abuse Patient Records regulations: The Federal rules restrict any use of the information to criminally investigate or prosecute any alcohol or drug abuse patient.[facility] DaytonIn the event this information is protected by the Federal Confidentiality of Alcohol and Drug Abuse Patient Records regulations: The Federal rules restrict any use of the information to criminally investigate or prosecute any alcohol or drug abuse patient.[facility] DaytonIn the event this information is protected by the Federal Confidentiality of Alcohol and Drug Abuse Patient Records regulations: The Federal rules restrict any use of the information to criminally investigate or prosecute any alcohol or drug abuse patient.[facility] Reason for Visit (unrecogniz ed section and content) Reason Comments Head Injury pt arrives via [facility] report of laceration to head , [...] Reason Comments Insect Bite 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 He says he has a few "lumps" on his chest that are sore and cause him to have trouble breathing. He says these showed up about 2 months ago. Specialty Diagnoses / Procedures Referred By Chato tapia Referred To Contact Pulmonology Diagnoses Chronic obstructive pulmonary disease, unspecified (HCC) Procedures IA OFFICE/OUTPATIENT NEW MODERATE MDM 45 MINUTES Paula Raphael MD [address] [place] [address] [facility] [facility] [address] [place] [address] Referral ID Status Reason Start Date Expiration Date V isits Requested Visits Authorized [id number] Pending Review 04/16/2024 04/16/2025 1 1 Specialty Diagnoses / Procedures Referred By Chato tapia Referred To Contact Pulmonology Diagnoses Chronic respiratory failure with hypoxia (HCC) Procedures Complete PFT pre and post bronchodilator Emely Amin MD [address] [address] [address] [place] [address] Referral ID Status Reason Start Date Expiration Date Visits Re quested Visits Authorized [id number] Closed 04/29/2024 04/24/2025 1 1 Ordered Prescriptions [...] Care Teams (unrecognized sec tion and content) Contract Paralegal Relationship Specialty Start Date End Date Kelsi Batista MD [address] [place] [address] PCP - General Family Medicine 07/19/22 Contract Paralegal Relationship Specialty Start Date End Date Kelsi Batista MD [address] [place] [address] PCP - General 07/19/22 Contract Paralegal Relationship Specialty Start Date End Date Kelsi Batista MD [address] [place] [address]., [address] [place] [address] PCP - General 07/19/22 Contract Paralegal Relationship Specialty Start Date End Date Carlyle Garcia MD PCP - General Family Medicine 01/10/21 Contract Paralegal Relationship Specialty Start Date End Date Kelsi Batista MD [address] [place] [address]., [address] [place] [address] PCP - General 07/19/22 Contract Paralegal Relationship Specialty Start Date End Date Carlyle Garcia MD PCP - General Family Medicine 01/10/21 Karolina Chappell MD [address] [address] [place], [place] [id number] Referring Internal Medicine 01/01/24 Karolina Chappell MD [address] [address] [place], [place] [id number] [phone] Care Provider Internal Medicine 01/01/24 Contract Paralegal Relationship Specialty Start Date End Date Carlyle Garcia MD PCP - General Family Medicine 01/10/21 Karolina Chappell MD [address] [place] [address] [place], [place] [id number] [phone] Referring Internal Medicine 01/01/24 Karolina Chappell MD [address] [place] [address] [place], [place] [phone] Care Provider Internal Medicine 01/01/24 Contract Paralegal Relationship Specialty Start Date End Date Kelsi Batista MD [address] [place] [address]., [address] [place] [address] PCP - General 07/19/22 Contract Paralegal Relationship Specialty Start Date End Date Carlyle Garcia MD PCP - General Family Medicine 01/10/21 Karolina Chappell MD [address] [place] [address] [place] [address] Referring Internal Medicine 01/01/24 Karolina Chappell MD [address] [place] [address] [place] [place] [address] Home Care Provider Internal Medicine 01/01/24 Team Status: Inactive Member Role Status Dates Paula JALLOH Attending Provider Active Team Status: Active Member Role Status Dates Paula JALLOH Attending Provider Active Contract Paralegal Relationship Specialty Start Date End Date Kelsi Batista MD [address] [place] [address] PCP - General 07/19/22 Contract Paralegal Relationship Specialty Start Date End Date Paula Raphael MD [address] [place] [address] [address] [place] [address] PCP - [facility] 06/26/24 Contract Paralegal Relationship Specialty Start Date End Date Paula Raphael MD [address] [place] [address] [address] [place] [address] PCP - [facility] 06/26/24 Contract Paralegal Relationship Specialty Start Date End Date Paula Raphael MD [address] [place] [address] [address] [place] [address] PCP - [facility] 06/26/24 Team Status: Inactive Member Role [...] BE BASED ON THE PRIMARY CLINICAL RECORDS. [facility] provides no warranty or guarantee of the accuracy or completeness of information in this document.
[2025-10-17 07:35] LABS: PSA,Total - Annual Screen 0.70 ng/mL (0.02-4.00)
== END | disposition home or self-care (01) ==
LOC: OLS.ACW200 05:00
PROVIDERS: Visit Provider Family Medicine
DX: J44.1 Chronic obstructive pulmonary disease with (acute) exacerbation (principal); R26.81 Unsteadiness on feet; R53.83 Other fatigue; R53.81 Other malaise
CPT/HCPCS: 36415; 83036; 84153; G0103